=== PATIENT | male | born 1940 | race Caucasian/White ===

== ENCOUNTER 2017-06-17 18:08 | Inpatient (IN) | payer OTHER, MEDICARE, MEDICAID ==
[2017-06-17] MEDS ORDERED: Sodium Chloride 0.9% 10 ML Syringe FLUSH PRN (18:38)
[2017-06-17] MEDS ORDERED: Diltiazem 25 MG/5 ML SDV IVPUSH ONE ×2 (18:39→20:13)
[2017-06-17] MEDS ORDERED: Magnesium Sulfate/Water 2 GM in Premix Bag 1 BAG IV ONE (18:40)
--- NOTE | 2017-06-17 18:44 | EDM.PDOC ---
ED HPI GENERAL MEDICAL PROBLEM - General Chief Complaint: Chest Pain Stated Complaint: CHEST PAIN Time Seen by Provider: 06/17/17 18:26 Source of Information: Reports: Patient History Limitations: Reports: No Limitations - History of Present Illness INITIAL COMMENTS - FREE TEXT/NARRATIVE: Patient is a 77-year-old male with a history of hypertension, hypoglycemia, coronary disease with stent placement, COPD, emphysema, GERD, type 2 diabetes, and chronic O2 use via nasal cannula. Presents to the ED complaining of substernal chest pain, palpitations, worsening shortness of breath. States at approximately 5:15 this evening after taking a albuterol neb treatment experience palpitations past heart rate, and also burning sensation substernal to his chest. Patient took in total 3 nitroglycerin with relief of the discomfort. Last nitroglycerin was at approximately 1745. Pain did radiate into his neck. Again he described it as a burning sensation. Symptoms were similar to first AL. Currently the patient is pain-free with only mild worsening shortness of breath. He has been taking all his home medications as prescribed. There has been no changes noted. Current weight is approximately 251 pounds which is close to his baseline. No increased weight or edema to his lower extremities noted. Home health nurse is present to answer all questions. Current medications include: See list. Anterior Chest Pain Score (Numeric/FACES): 8 - Related Data Allergies Allergy/AdvReac Type Severity Reaction Status Date / Time codeine Allergy Nausea and Verified 06/17/17 23:20 Vomiting fish oil Allergy Nausea and Verified 06/17/17 23:20 Vomiting glipizide [From Glucotrol] Allergy Other Verified 06/17/17 23:20 ibuprofen Allergy Other Verified 06/17/17 23:20 metformin Allergy Other Verified 06/17/17 23:20 pioglitazone [From Actos] Allergy Other Verified 06/17/17 23:20 Home Meds: Home Meds Aspirin [Adult Low Dose Aspirin EC] 81 mg PO DAILY 03/05/14 [History] Clopidogrel [Plavix] 75 mg PO DAILY 03/05/14 [History] Insulin Glarg,Human.Rec.Analog [Lantus] 42 unit SUBCUT BID 03/05/14 [History] Isosorbide Mononitrate [Imdur] 120 mg PO DAILY 03/05/14 [History] Nitroglycerin [Nitrostat] 0.4 mg SL ASDIRECTED PRN 03/05/14 [History] Polyethylene Glycol 1000 [Polyethylene Glycol] 1 scoop PO ASDIRECTED 03/05/14 [ History] Insulin Aspart [Novolog Flexpen] 17 unit SQ BIDMEALS 04/24/14 [History] Acetaminophen [Acetaminophen Extra Strength] 1,000 mg PO BID PRN 10/15/14 [ History] Insulin Aspart [Novolog Flexpen] 26 unit SQ PCDINNER 10/15/14 [History] Metoprolol Tartrate 25 mg PO BID 10/15/14 [History] Ranolazine [Ranexa] 500 mg PO BID 12/28/14 [History] Fluticasone Propionate [Flonase] 2 spray NS DAILY 03/30/16 [History] Pantoprazole [ProTONIX] 40 mg PO DAILY 03/30/16 [History] Albuterol [Ventolin HFA] 1 puff INH QID PRN 06/30/16 [History] Antacids 1 tab PO ASDIRECTED 06/30/16 [History] Budesonide [Pulmicort] 0.25 mg INH BID 06/30/16 [History] Furosemide [Lasix] 40 mg PO DAILY 06/30/16 [History] Levothyroxine Sodium [Synthroid] 50 mcg PO DAILY 06/30/16 [History] Montelukast [Singulair] 10 mg PO BEDTIME 06/30/16 [History] Naphazoline HCl/Pheniramine [Opcon-A Eye Drops] 1 drop EYEBOTH DAILY 06/30/16 [ History] Ondansetron [Zofran ODT] 4 mg PO Q8H PRN 06/30/16 [History] Rosuvastatin [Crestor] 20 mg PO DAILY 06/30/16 [History] Tamsulosin [Flomax] 0.4 mg PO BEDTIME 06/30/16 [History] Arformoterol [Brovana] 15 mcg NEB BIDRT 06/17/17 [History] Captopril 50 mg PO BID 06/17/17 [History] Dextromethorphan/guaiFENesin [Robitussin DM] 10 ml PO Q12H PRN 06/17/17 [History ] Gabapentin [Neurontin] 300 mg PO BEDTIME 06/17/17 [History] Polyvinyl Alcohol/Povidone [Artificial Tears Drops] 15 ml OP QID PRN 06/17/17 [ History] Umeclidinium [place] [Incruse Ellipta*] 62.5 mcg IH DAILY 06/17/17 [History] lamoTRIgine [Lamotrigine] 50 mg PO BEDTIME 06/17/17 [History] Past Medical History HEENT History: Reports: Impaired Vision Other HEENT History: wears glasses Cardiovascular History: Reports: High Cholesterol, Hypertension, [place] Respiratory History: Reports: COPD, SOB, Other (See Below) Other Respiratory History: emphasema Gastrointestinal History: Reports: GERD Genitourinary History: Reports: None Musculoskeletal History: Reports: Back Pain, Chronic, Osteoarthritis Neurological History: Reports: Headaches, Chronic Other Neuro History: Stroke in 1971 Endocrine/Metabolic History: Reports: Diabetes, Type II Hematologic History: Reports: None Oncologic (Cancer) History: Reports: None Dermatologic History: Reports: None - Infectious Disease History Infectious Disease History: Reports: Influenza, Measles - Past Surgical History Head Surgeries/Procedures: Reports: None Cardiovascular Surgical History: Reports: Coronary Artery Stent GI Surgical History: Reports: Colonoscopy Social & Family History - Family History Family Medical History: Noncontributory - Tobacco Use Smoking Status *Q: Never Smoker Years of Tobacco use: 50 Packs/Tins Daily: 2 Used Tobacco, but Quit: Yes Month Tobacco Last Used: 6 years Second Hand Smoke Exposure: No - Caffeine Use Caffeine Use: Reports: Coffee, Soda - Alcohol Use Days Per Week of Alcohol Use: 0 - Recreational Drug Use Recreational Drug Use: No ED ROS GENERAL - Review of Systems Review Of Systems: ROS reveals no pertinent complaints other than HPI. ED EXAM, GENERAL - Physical Exam Exam: See Below Exam Limited By: No Limitations General Appearance: Alert, WD/WN, No Apparent Distress, Other (Receiving oxygen via nasal cannula.) Ears: Hearing Grossly Normal Nose: Normal Inspection Throat/Mouth: Normal Voice, No Airway Compromise Neck: Normal Inspection, Supple Respiratory/Chest: No Respiratory Distress, Lungs Clear, Normal Breath Sounds, No Accessory Muscle Use, Chest Non-Tender (With palpation) Cardiovascular: Normal Peripheral Pulses, Tachycardia, Irregularly Irregular Peripheral Pulses: 1+: Posterior Tibial (L), Posterior Tibial (R), 2+: Radial (L ), Radial (R) GI/Abdominal: Normal Bowel Sounds, Soft, Non-Tender, No Organomegaly, No Distention, Other (Obese) Extremities: Normal Inspection, Normal Range of Motion, Non-Tender, Pedal Edema (Trace to ankles bilaterally) Neurological: Alert, Oriented, CN II-XII Intact, Normal Cognition, No Motor/ Sensory Deficits Psychiatric: Normal Affect, Normal Mood Skin Exam: Warm, Dry, Intact, Normal Color Course - Vital Signs Last Recorded V/S: Last Vital Signs Temp 96.7 F 06/19/17 08:07 Pulse 72 06/19/17 08:15 Resp 16 06/19/17 08:07 BP 158/66 H 06/19/17 08:15 Pulse Ox 97 06/19/17 08:07 - Orders/Labs/Meds Labs: Laboratory Tests 06/17/17 06/17/17 06/17/17 Range/Units 18:30 18:30 18:30 WBC 6.63 (4.23-9.07) K/mm3 RBC 4.23 L (4.63-6.08) M/mm3 Hgb 12.5 L (13.7-17.5) gm/L Hct 37.9 L (40.1-51.0) % MCV 89.6 (79.0-92.2) fl MCH 29.6 (25.7-32.2) pg MCHC 33.0 (32.2-35.5) g/dl RDW Std Deviation 47.3 H (35.1-43.9) fL Plt Count 162 L (163-337) K/mm3 MPV 11.2 (9.4-12.3) fl Neut % (Auto) 75.7 H (34.0-67.9) % Lymph % (Auto) 13.4 L (21.8-53.1) % [place] % (Auto) 8.3 (5.3-12.2) % Eos % (Auto) 1.8 (0.8-7.0) Baso % (Auto) 0.2 (0.1-1.2) % Neut # (Auto) 5.02 (1.78-5.38) K/mm3 Lymph # (Auto) 0.89 L (1.32-3.57) K/mm3 [place] # (Auto) 0.55 (0.30-0.82) K/mm3 Eos # (Auto) 0.12 (0.04-0.54) K/mm3 Baso # (Auto) 0.01 (0.01-0.08) K/mm3 PT 10.3 (8.0-13.0) SECONDS INR 0.95 Sodium 143 (136-145) mEq/L Potassium 3.8 (3.5-5.1) mEq/L Chloride 103 (98-107) mEq/L Carbon Dioxide 32 (21-32) mEq/L Anion Gap 11.8 (5-15) BUN 20 H (7-18) mg/dL Creatinine 1.9 H (0.7-1.3) mg/dL Est Cr Clr Drug Dosing 38.91 mL/min Estimated GFR (MDRD) 35 (>60) mL/min BUN/Creatinine Ratio 10.5 L (14-18) Glucose 196 H (83-115) mg/dL Calcium 9.2 (8.5-10.1) mg/dL Magnesium 1.5 L (1.8-2.4) mg/dl Total Bilirubin 0.6 (0.2-1.0) mg/dL AST 19 (15-37) U/L ALT 29 (16-63) U/L Alkaline Phosphatase 81 (46-116) U/L Troponin I < 0.017 (0.00-0.056) ng/mL C-Reactive Protein < 0.2 (<1.0) mg/dL NT-Pro-B Natriuret Pep 493 H (0-450) pg/mL Total Protein 7.4 (6.4-8.2) g/dl Albumin 3.6 (3.4-5.0) g/dl Globulin 3.8 gm/dL Albumin/Globulin Ratio 1.0 (1-2) TSH 3rd Generation 2.392 (0.358-3.74) uIU/mL Urine Color (Yellow) Urine Appearance (Clear) Urine pH (5.0-8.0) Ur Specific [place] (1.005-1.030) Urine Protein (Negative) Urine Glucose (UA) (Negative) Urine Ketones (Negative) Urine Occult Blood (Negative) Urine Nitrite (Negative) Urine Bilirubin (Negative) Urine Urobilinogen (0.2-1.0) Ur Leukocyte Esterase (Negative) Urine RBC (0-5) /hpf Urine WBC (0-5) /hpf Ur Epithelial Cells (0-5) /hpf Urine Bacteria (FEW) /hpf Urine Mucus (FEW) /hpf 06/17/17 Range/Units 20:11 WBC (4.23-9.07) K/mm3 RBC (4.63-6.08) M/mm3 Hgb (13.7-17.5) gm/L Hct (40.1-51.0) % MCV (79.0-92.2) fl MCH (25.7-32.2) pg MCHC (32.2-35.5) g/dl RDW Std Deviation (35.1-43.9) fL Plt Count (163-337) K/mm3 MPV (9.4-12.3) fl Neut % (Auto) (34.0-67.9) % Lymph % (Auto) (21.8-53.1) % [place] % (Auto) (5.3-12.2) % Eos % (Auto) (0.8-7.0) Baso % (Auto) (0.1-1.2) % Neut # (Auto) (1.78-5.38) K/mm3 Lymph # (Auto) (1.32-3.57) K/mm3 [place] # (Auto) (0.30-0.82) K/mm3 Eos # (Auto) (0.04-0.54) K/mm3 Baso # (Auto) (0.01-0.08) K/mm3 PT (8.0-13.0) SECONDS INR Sodium (136-145) mEq/L Potassium (3.5-5.1) mEq/L Chloride (98-107) mEq/L Carbon Dioxide (21-32) mEq/L Anion Gap (5-15) BUN (7-18) mg/dL Creatinine (0.7-1.3) mg/dL Est Cr Clr Drug Dosing mL/min Estimated GFR (MDRD) (>60) mL/min BUN/Creatinine Ratio (14-18) Glucose (83-115) mg/dL Calcium (8.5-10.1) mg/dL Magnesium (1.8-2.4) mg/dl Total Bilirubin (0.2-1.0) mg/dL AST (15-37) U/L ALT (16-63) U/L Alkaline Phosphatase (46-116) U/L Troponin I (0.00-0.056) ng/mL C-Reactive Protein (<1.0) mg/dL NT-Pro-B Natriuret Pep (0-450) pg/mL Total Protein (6.4-8.2) g/dl Albumin (3.4-5.0) g/dl Globulin gm/dL Albumin/Globulin Ratio (1-2) TSH 3rd Generation (0.358-3.74) uIU/mL Urine Color Yellow (Yellow) Urine Appearance Clear (Clear) Urine pH 7.0 (5.0-8.0) Ur Specific [place] 1.020 (1.005-1.030) Urine Protein 1+ H (Negative) Urine Glucose (UA) Trace H (Negative) Urine Ketones Negative (Negative) Urine Occult Blood Negative (Negative) Urine Nitrite Negative (Negative) Urine Bilirubin Negative (Negative) Urine Urobilinogen 2.0 H (0.2-1.0) Ur Leukocyte Esterase Negative (Negative) Urine RBC Not seen (0-5) /hpf Urine WBC 0-5 (0-5) /hpf Ur Epithelial Cells 0-5 (0-5) /hpf Urine Bacteria Not seen (FEW) /hpf Urine Mucus Not seen (FEW) /hpf Meds: Medications Discontinued Medications Generic Name Dose Route Start Last Admin Trade Name Felipeq PRN Reason Stop Dose Admin Acetaminophen 650 mg 06/18/17 00:22 Tylenol RECTAL Q4H PRN Fever Acetaminophen 650 mg 06/18/17 00:23 06/18/17 19:32 Tylenol PO 650 mg Q4H PRN Administration Fever Albuterol/Ipratropium 3 ml 06/18/17 00:19 Duoneb 3.0-0.5 Mg/3 Ml NEB Q4HRRT PRN Shortness of Breath Amlodipine Besylate 10 mg 06/18/17 09:00 Norvasc PO DAILY [facility] Aspirin 81 mg 06/18/17 09:00 06/19/17 08:15 Halfprin PO 81 mg DAILY [facility] Administration Budesonide 0.25 mg 06/18/17 06:00 06/19/17 06:25 Pulmicort INH 0.25 mg BIDRT GUANAKO Administration Captopril 50 mg 06/17/17 21:00 06/19/17 08:13 Capoten PO 50 mg BID G[facility]KO Administration Clopidogrel Bisulfate 75 mg 06/18/17 09:00 06/19/17 08:17 Plavix PO 75 mg DAILY G[facility]KO Administration Diltiazem HCl 10 mg 06/17/17 18:39 06/17/17 19:04 Diltiazem IVPUSH 06/17/17 18:40 10 mg ONETIME ONE Administration Diltiazem HCl 5 mg 06/17/17 20:13 06/17/17 22:54 Diltiazem IVPUSH 06/17/17 20:14 Not Given ONETIME ONE Furosemide 40 mg 06/18/17 09:00 06/19/17 08:16 Lasix PO 40 mg DAILY G[facility]KO Administration Gabapentin 300 mg 06/17/17 22:30 06/18/17 20:27 Neurontin PO 300 mg BEDTIME G[facility]KO Administration Hydralazine HCl 20 mg 06/18/17 00:17 Apresoline IM Q4H PRN Hypertension Sodium Chloride 1,000 mls @ 50 mls/hr 06/17/17 18:45 06/17/17 22:53 Normal Saline IV 30 mls/hr ASDIRECTED GUANAKO Infusion Magnesium Sulfate 2 gm/ Premix 50 mls @ 25 mls/hr 06/17/17 18:40 06/17/17 19: 10 IV 06/17/17 20:39 25 mls/hr ONETIME ONE Administration Diltiazem HCl 125 mg/ Sodium 125 mls @ 5 mls/hr 06/17/17 20:15 Chloride IV TITRATE GUANAKO Protocol 5 MG/HR Sodium Chloride 1,000 mls @ 30 mls/hr 06/17/17 23:00 Normal Saline IV ASDIRECTED [facility] Metoprolol Tartrate 5 mg/ 55 mls @ 100 mls/hr 06/18/17 00:14 Sodium Chloride IV Q4H PRN Tachycardia Diltiazem HCl 125 mg/ Sodium 125 mls @ 5 mls/hr 06/18/17 00:30 Chloride IV TITRATE GUANAKO Protocol 5 MG/HR Potassium Chloride 10 meq/ 100 mls @ 100 mls/hr 06/18/17 01:06 Premix IV ASDIRECTED PRN Other Insulin Aspart 17 unit 06/18/17 07:00 06/19/17 08:10 Novolog SUBCUT 17 units BID@0700,1100 [facility] Administration Insulin Aspart 26 unit 06/18/17 17:00 06/18/17 17:20 Novolog SUBCUT 26 units WITHDINNER [facility] Administration Insulin Detemir 42 unit 06/18/17 09:00 06/19/17 08:11 Levemir SUBCUT 42 units BID [facility] Administration Isosorbide Mononitrate 120 mg 06/18/17 09:00 06/19/17 08:14 Imdur PO 120 mg DAILY [facility] Administration Lamotrigine 50 mg 06/18/17 21:00 Lamotrigine PO BEDTIME G[facility] Lamotrigine 50 mg 06/17/17 21:00 06/18/17 20:26 Lamotrigine PO 50 mg BEDTIME [facility] Administration Levothyroxine Sodium 25 mcg 06/18/17 09:00 Levothyroxine PO DAILY [facility] Levothyroxine Sodium 50 mcg 06/18/17 06:00 06/19/17 05:34 Synthroid PO 50 mcg ACBRK [facility] Administration Losartan Potassium 100 mg 06/18/17 09:00 Cozaar PO DAILY [facility] Magnesium Sulfate 1 dose 06/18/17 01:09 Pharmacy To Dose - Magnesium Replacement .XX ASDIRECTED PRN Other Metoprolol Tartrate 25 mg 06/17/17 21:00 06/19/17 08:15 Lopressor PO 25 mg Q12HR [facility] Administration Metoprolol Tartrate 25 mg 06/18/17 09:00 Lopressor PO BID [facility] Miscellaneous Information 1 ea 06/18/17 00:29 Remove Patch TRDERM Q72H PRN PATCH REMOVAL Montelukast Sodium 10 mg 06/17/17 21:00 06/18/17 20:27 Singulair PO 10 mg BEDTIME [facility] Administration Montelukast Sodium 10 mg 06/18/17 09:00 Singulair PO DAILY [facility] Morphine Sulfate 1 mg 06/18/17 00:25 Morphine IVPUSH Q3H PRN Dyspnea Nitroglycerin 0.4 mg 06/17/17 23:21 06/18/17 12:13 Nitrostat SL 0.4 mg ASDIRECTED PRN Administration Chest Pain Non-Formulary Medication 2 puff 06/17/17 23:21 Levalbuterol Tartrate [Xopenex Hfa] INH QID PRN Dyspnea Ondansetron HCl 4 mg 06/17/17 23:21 Zofran Odt PO Q8H PRN Nausea Ondansetron HCl 4 mg 06/18/17 00:24 Zofran IVPUSH Q4H PRN Nausea/Vomiting Pantoprazole Sodium 40 mg 06/18/17 07:00 06/19/17 06:02 Protonix PO Not Given DAILY@0700 [facility] Naphazoline Hcl/ 0 each 06/18/17 09:00 06/19/17 08:15 Pheniramine [Opcon-A EYEBOTH 1 each Eye Drops] 1 Drop DAILY [facility] Administration Umeclidinium [place] 0 each 06/18/17 09:00 06/19/17 09:50 62.5 Mcg INH 1 each DAILY [facility] Administration Potassium Chloride 1 dose 06/18/17 01:10 Pharmacy To Dose - Potassium Replacement .XX ASDIRECTED PRN Other Ranolazine 500 mg 06/18/17 09:00 06/19/17 08:15 Ranexa PO 500 mg BID [facility] Administration Rosuvastatin Calcium 20 mg 06/17/17 21:00 06/18/17 20:26 Crestor PO 20 mg BEDTIME [facility] Administration Rosuvastatin Calcium 20 mg 06/18/17 09:00 Crestor PO DAILY [facility] Scopolamine 1.5 mg 06/18/17 00:29 Transderm-Scop TRDERM Q72H PRN Nausea/Vomiting Sodium Chloride 10 ml 06/17/17 18:38 06/17/17 19:20 Saline Flush FLUSH 10 ml ASDIRECTED PRN Administration Keep Vein Open Tamsulosin HCl 0.4 mg 06/18/17 09:00 06/19/17 08:15 Flomax PO 0.4 mg DAILY [facility] Administration Temazepam 7.5 mg 06/18/17 00:27 Restoril PO BEDTIME PRN Insomnia - Re-Assessments/Exams Free Text/Narrative Re-Assessment/Exam: EKG revealed atrial flutter with a 2-1 AV block, left axis deviation, consider left anterior fascicular block, no acute ST changes noted. Poor EKG reading. Reviewed with previous EKG dated June 30, 2016 sinus rhythm at a rate of 81 with a few atrial premature complexes. IV established with normal saline and 50 mL per hour, diltiazem bolus of 10 mg IVP, and mg 2 gram IV. 06/17/17 20:01 Labs reviewed: White blood cell count 6.63, hemoglobin 12.5, platelet count 162, INR 0.95, sodium 143, potassium 3.8, creatinine 1.9 which is close to patient's baseline, glucose 186, magnesium 1.5, troponin less than 0.017, CRP less than 0.2, proBNP is 193, and TSH is 2.392. CXR reviewed with Dr. Stephenson: no obvious acute intrathoracic and abnormalities noted. 1914 reassessment, patient's heart rate dropped in the 110s for 128. Blood pressure dropped from 150 systolic to 115 systolic. Reassessment, patient's heart rate is climbing upward in the 120s. Blood pressure remains 115/88. Will order diltiazem gtt. Do not believe patient will tolerate IVP of diltizem even at low dose 2.5mg and or 5mg. [address] 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 2021. Back to the ER to speak with the patient. Heart rate was 110 blood pressure 140 systolic. During our conversation heart rhythm converted to a sinus rhythm at a rate of 68. Will obtain 12-lead. ProBNP is 493 EKG 2034 sinus rhythm with incomplete right bundle branch block and a heart rate is 67. No acute ST changes noted. [address] Koch. Patient will still be admitted to the ICU. For new onset afib and chest pain rule out. No IV diltiazem started. 2052 Patient moved to the ICU. Departure - Departure Time of Disposition: 20:53 Disposition: Admitted As Inpatient 66 Condition: Good Clinical Impression: New onset a-fib, Chest pain, rule out acute myocardial infarction
[2017-06-17] MEDS ORDERED: Sodium Chloride 0.9% 1,000 ML IV SCH ×2 (18:45→23:00)
[2017-06-17] MEDS ORDERED: Diltiazem 125 MG in Sodium Chloride 0.9% 100 ML IV SCH (20:15)
--- NOTE | 2017-06-17 22:16 | PCM.HP ---
H&P History of Present Illness - General Date of Service: 06/17/17 Source of Information: Patient, Old Records, Provider, RN History Limitations: Reports: No Limitations - History of Present Illness Initial Comments - Free Text/Narative: Steve Price is a 77 yo male who presents to our ED on 06/17/17 with substernal chest pain, palpitations, worsening shortness of breath. Symptoms started approximately 17:15 this evening after albuterol neb treatment. He started to have palpitations or racing heart rate and burning sensation substernal to his chest. He took 3 nitroglycerin with with relief of his discomfort. His last nitroglycerin was at approximately 17:45. The pain is described as a burning sensation and did radiate to his neck. He has had a history of OR in these symptoms were similar. Upon arrival he was pain-free with mild worsening shortness of breath. He was taking all of his home medications and there were no changes. There is no increased weight or edema in his lower extremities and a home health nurse was present to answer all the provider questions. Once in the ED temperature was 97.6 Fahrenheit. Pulse 121. Respirations 22. Blood pressure 150/109. Pulse ox 95% on oxygen. A 12-lead EKG was obtained revealing atrial flutter with 21 AV block, left axis deviation, severe left anterior fascicular block, no acute ST changes. It was of poor EKG reading. A previous EKG from June 30, 2016 was obtained revealing a sinus rhythm at a rate of 81 with a few atrial premature complexes. Labs are obtained: White count normal at 6.63 hemoglobin low at 12.5. Hematocrit low at 37.9. Blood count low at 162,000. He was normocytic. Neutrophils were elevated at 75.7 PT was normal at 10.3. INR normal at 0.95. Sodium normal at 143. Potassium 3.8 chloride 103. Carbon dioxide 32. Anion gap 11.8. BUN was high at 20. Head and was high at 1.9. Estimated GFR was 35. Glucose is high at 196. Calcium normal at 192. Magnesium low at 1.5. Bilirubin was normal at 0.6. Liver enzymes were normal with AST and 19, ALT at 29, alkaline phosphatase of 81. Troponin negative. CRP less than 0.2. BNP was slightly elevated at 493. Albumin was normal at 3.6. TSH was normal at 2.392. UA was negative. IV was established normal saline at 50 mL per hour and a diltiazem bolus of 10 mg IVP was given followed by another 5 mg IV push. Chest x-ray was obtained and reviewed with ER physician showing no obvious acute intrathoracic abnormalities. Diltiazem drip was started with titration protocol. Magnesium sulfate IV was ordered to replenish. He carries a rather complicated history including: HTN, HLD, OR with stent placement, COPD, emphysema, GERD, chronic back pain, osteoporosis, chronic headaches, stroke in 1971, type II DM, and chronic home oxygen use. He was a previous smoker. He was subsequently admitted to our ICU. He is a DNR. His primary care provider is Dr. Ovalle. Anterior Chest Pain Score (Numeric/FACES): 0 (No pain just pressure ) - Related Data Allergies/Adverse Reactions: Allergies Allergy/AdvReac Type Severity Reaction Status Date / Time codeine Allergy Nausea and Verified 06/17/17 23:20 Vomiting fish oil Allergy Nausea and Verified 06/17/17 23:20 Vomiting glipizide [From Glucotrol] Allergy Other Verified 06/17/17 23:20 ibuprofen Allergy Other Verified 06/17/17 23:20 metformin Allergy Other Verified 06/17/17 23:20 pioglitazone [From Actos] Allergy Other Verified 06/17/17 23:20 Home Medications: Home Meds RX: Aspirin [Adult Low Dose Aspirin EC] 81 mg PO DAILY 03/05/14 [History] RX: Clopidogrel [Plavix] 75 mg PO DAILY 03/05/14 [History] RX: Insulin Glarg,Human.Rec.Analog [Lantus] 42 unit SUBCUT BID 03/05/14 [History ] RX: Isosorbide Mononitrate [Imdur] 120 mg PO DAILY 03/05/14 [History] RX: Levalbuterol Tartrate [Xopenex HFA] 2 puff INH QID PRN 03/05/14 [History] RX: Nitroglycerin [Nitrostat] 0.4 mg SL ASDIRECTED PRN 03/05/14 [History] RX: Polyethylene Glycol 1000 [Polyethylene Glycol] 1 scoop PO ASDIRECTED [History] RX: Insulin Aspart [Novolog Flexpen] 17 unit SQ BIDMEALS 04/24/14 [History] RX: amLODIPine [Norvasc] 10 mg PO DAILY 04/24/14 [History] RX: Acetaminophen [Acetaminophen Extra Strength] 650 mg PO BID PRN 10/15/14 [ History] RX: Insulin Aspart [Novolog Flexpen] 26 unit SQ PCDINNER 10/15/14 [History] RX: Metoprolol Tartrate 25 mg PO BID 10/15/14 [History] Ranolazine [Ranexa] 500 mg PO BID 12/28/14 [History] Fluticasone Propionate [Flonase] 2 spray NS DAILY 03/30/16 [History] Pantoprazole [Protonix] 40 mg PO DAILY 03/30/16 [History] Albuterol [Ventolin HFA] 1 puff INH DAILY PRN 06/30/16 [History] Antacids 1 tab PO ASDIRECTED 06/30/16 [History] Budesonide [Pulmicort] 0.25 mg INH BID 06/30/16 [History] Furosemide [Lasix] 40 mg PO DAILY 06/30/16 [History] Naphazoline HCl/Pheniramine [Opcon-A Eye Drops] 1 drop EYEBOTH DAILY 06/30/16 [ History] Ondansetron [Zofran ODT] 4 mg PO Q8H PRN 06/30/16 [History] RX: Levothyroxine Sodium [Synthroid] 25 mcg PO DAILY 06/30/16 [History] RX: Losartan [Cozaar] 100 mg PO DAILY 06/30/16 [History] RX: Montelukast [Singulair] 10 mg PO DAILY 06/30/16 [History] Rosuvastatin [Crestor] 20 mg PO DAILY 06/30/16 [History] Tamsulosin [Flomax] 0.4 mg PO DAILY 06/30/16 [History] Umeclidinium [place] [Incruse Ellipta] 32.5 mcg IH DAILY 06/30/16 [History] Past Medical History HEENT History: Reports: Impaired Vision Other HEENT History: wears glasses Cardiovascular History: Reports: High Cholesterol, Hypertension, OR Respiratory History: Reports: COPD, SOB, Other (See Below) Other Respiratory History: emphasema Gastrointestinal History: Reports: GERD Genitourinary History: Reports: None Musculoskeletal History: Reports: Back Pain, Chronic, Osteoarthritis Neurological History: Reports: Headaches, Chronic Other Neuro History: Stroke in 1972 Endocrine/Metabolic History: Reports: Diabetes, Type II Hematologic History: Reports: None Oncologic (Cancer) History: Reports: None Dermatologic History: Reports: None - Infectious Disease History Infectious Disease History: Reports: Influenza, Measles - Past Surgical History Head Surgeries/Procedures: Reports: None Cardiovascular Surgical History: Reports: Coronary Artery Stent GI Surgical History: Reports: Colonoscopy Social & Family History - Family History Family Medical History: Noncontributory - Tobacco Use Smoking Status *Q: Never Smoker Years of Tobacco use: 50 Packs/Tins Daily: 2 Used Tobacco, but Quit: Yes Month Tobacco Last Used: 6 years Second Hand Smoke Exposure: No - Caffeine Use Caffeine Use: Reports: Coffee, Soda - Alcohol Use Days Per Week of Alcohol Use: 0 - Recreational Drug Use Recreational Drug Use: No H&P Review of Systems - Review of Systems: Review Of Systems: See Below General: Reports: No Symptoms. Denies: Fever, Chills, Malaise, Weakness, Fatigue, Night Sweats HEENT: Reports: Sinus Congestion. Denies: Contact Lenses, Dysphasia, Ear Pain, Eye Pain, Headaches, Hearing Changes, Post Nasal Drip, Sore Throat, Vertigo, Visual Changes Pulmonary: Reports: Cough (today). Denies: Shortness of Breath, Wheezing, Pleuritic Chest Pain, Sputum Cardiovascular: Reports: Edema (chronic ), Other (Chest tightness - "like someone is squeezing around my chest."). Denies: Chest Pain, Palpitations, Lightheadedness, Syncope Gastrointestinal: Reports: No Symptoms. Denies: Abdominal Pain, Constipation, Diarrhea, Decreased Appetite, Distension, Nausea, Vomiting Genitourinary: Reports: No Symptoms. Denies: Dysuria, Frequency, Burning, Pain , Urgency Musculoskeletal: Reports: No Symptoms. Denies: Neck Pain, Shoulder Pain, Arm Pain, Back Pain, Hand Pain, Leg Pain, Foot Pain, Joint Pain, Joint Swelling, Muscle Pain Skin: Reports: No Symptoms. Denies: Cyanosis, Jaundice, Mottled, Pallor Psychiatric: Reports: No Symptoms. Denies: Confusion, Depression, Mood Lability , Anxiety Neurological: Reports: No Symptoms. Denies: Confusion, Dizziness, Headache, Numbness, Paresthesia Hematologic/Lymphatic: Reports: No Symptoms Immunologic: Reports: No Symptoms Exam - Exam Exam: See Below - Vital Signs Vital Signs: Last Vital Signs Temp 97.6 F 06/17/17 18:14 Pulse 121 H 06/17/17 18:14 Resp 22 H 06/17/17 18:14 BP 150/109 H 06/17/17 18:14 Pulse Ox 95 06/17/17 18:14 Weight: 251 lb - Exam Quality Assessment: Supplemental Oxygen (on chronically ), DVT Prophylaxis General: Alert, Oriented, Cooperative, Other (Obese) HEENT: Conjunctiva Clear, EACs Clear, EOMI, Hearing Intact, Mucosa Moist & [place] , Nares Patent, Normal Nasal Septum, Posterior Pharynx Clear, Pupils Equal, Pupils Reactive Neck: Supple, Trachea Midline. No: Carotid Bruit, JVD Lungs: Clear to Auscultation, Normal Respiratory Effort Cardiovascular: Regular Rate, Regular Rhythm, Normal S1, Normal S2 GI/Abdominal Exam: Normal Bowel Sounds, Soft, Non-Tender, No Organomegaly, No Distention, No Abnormal Bruit, No Mass, Pelvis Stable (Male) Exam: Deferred Rectal (Males) Exam: Deferred Back Exam: Normal Inspection, Full Range of Motion Extremities: Normal Inspection, Normal Range of Motion, Non-Tender, Normal Capillary Refill Peripheral Pulses: 2+: Radial (L), Radial (R), Posterior Tibial (L), Posterior Tibial (R), Dorsalis Pedis (L), Dorsalis Pedis (R) Skin: Warm, Dry, Intact Neurological: Cranial Nerves Intact (grossly ) Neuro Extensive - Mental Status: Alert, Oriented x3, Normal Mood/Affect, Normal Cognition, Memory Intact Neuro Extensive - Motor, Sensory, Reflexes: CN II-XII Intact (grossly ), Normal Gait Psychiatric: Alert, Normal Affect, Normal Mood Physical Exam Comments:: Patient examined while lying in ICU bed. - Patient Data Lab Results Last 24 hrs: Laboratory Results - last 24 hr 06/17/17 06/17/17 06/17/17 Range/Units 18:30 18:30 18:30 WBC 6.63 (4.23-9.07) K/mm3 RBC 4.23 L (4.63-6.08) M/mm3 Hgb 12.5 L (13.7-17.5) gm/L Hct 37.9 L (40.1-51.0) % MCV 89.6 (79.0-92.2) fl MCH 29.6 (25.7-32.2) pg MCHC 33.0 (32.2-35.5) g/dl RDW Std Deviation 47.3 H (35.1-43.9) fL Plt Count 162 L (163-337) K/mm3 MPV 11.2 (9.4-12.3) fl Neut % (Auto) 75.7 H (34.0-67.9) % Lymph % (Auto) 13.4 L (21.8-53.1) % [place] % (Auto) 8.3 (5.3-12.2) % Eos % (Auto) 1.8 (0.8-7.0) Baso % (Auto) 0.2 (0.1-1.2) % Neut # (Auto) 5.02 (1.78-5.38) K/mm3 Lymph # (Auto) 0.89 L (1.32-3.57) K/mm3 [place] # (Auto) 0.55 (0.30-0.82) K/mm3 Eos # (Auto) 0.12 (0.04-0.54) K/mm3 Baso # (Auto) 0.01 (0.01-0.08) K/mm3 PT 10.3 (8.0-13.0) SECONDS INR 0.95 Sodium 143 (136-145) mEq/L Potassium 3.8 (3.5-5.1) mEq/L Chloride 103 (98-107) mEq/L Carbon Dioxide 32 (21-32) mEq/L Anion Gap 11.8 (5-15) BUN 20 H (7-18) mg/dL Creatinine 1.9 H (0.7-1.3) mg/dL Est Cr Clr Drug Dosing 38.91 mL/min Estimated GFR (MDRD) 35 (>60) mL/min BUN/Creatinine Ratio 10.5 L (14-18) Glucose 196 H (83-115) mg/dL Calcium 9.2 (8.5-10.1) mg/dL Magnesium 1.5 L (1.8-2.4) mg/dl Total Bilirubin 0.6 (0.2-1.0) mg/dL AST 19 (15-37) U/L ALT 29 (16-63) U/L Alkaline Phosphatase 81 (46-116) U/L Troponin I < 0.017 (0.00-0.056) ng/mL C-Reactive Protein < 0.2 (<1.0) mg/dL NT-Pro-B Natriuret Pep 493 H (0-450) pg/mL Total Protein 7.4 (6.4-8.2) g/dl Albumin 3.6 (3.4-5.0) g/dl Globulin 3.8 gm/dL Albumin/Globulin Ratio 1.0 (1-2) TSH 3rd Generation 2.392 (0.358-3.74) uIU/mL Urine Color (Yellow) Urine Appearance (Clear) Urine pH (5.0-8.0) Ur Specific [place] (1.005-1.030) Urine Protein (Negative) Urine Glucose (UA) (Negative) Urine Ketones (Negative) Urine Occult Blood (Negative) Urine Nitrite (Negative) Urine Bilirubin (Negative) Urine Urobilinogen (0.2-1.0) Ur Leukocyte Esterase (Negative) Urine RBC (0-5) /hpf Urine WBC (0-5) /hpf Ur Epithelial Cells (0-5) /hpf Urine Bacteria (FEW) /hpf Urine Mucus (FEW) /hpf 06/17/ Range/Units 20:11 WBC (4.23-9.07) K/mm3 RBC (4.63-6.08) M/mm3 Hgb (13.7-17.5) gm/L Hct (40.1-51.0) % MCV (79.0-92.2) fl MCH (25.7-32.2) pg MCHC (32.2-35.5) g/dl RDW Std Deviation (35.1-43.9) fL Plt Count (163-337) K/mm3 MPV (9.4-12.3) fl Neut % (Auto) (34.0-67.9) % Lymph % (Auto) (21.8-53.1) % [place] % (Auto) (5.3-12.2) % Eos % (Auto) (0.8-7.0) Baso % (Auto) (0.1-1.2) % Neut # (Auto) (1.78-5.38) K/mm3 Lymph # (Auto) (1.32-3.57) K/mm3 [place] # (Auto) (0.30-0.82) K/mm3 Eos # (Auto) (0.04-0.54) K/mm3 Baso # (Auto) (0.01-0.08) K/mm3 PT (8.0-13.0) SECONDS INR Sodium (136-145) mEq/L Potassium (3.5-5.1) mEq/L Chloride (98-107) mEq/L Carbon Dioxide (21-32) mEq/L Anion Gap (5-15) BUN (7-18) mg/dL Creatinine (0.7-1.3) mg/dL Est Cr Clr Drug Dosing mL/min Estimated GFR (MDRD) (>60) mL/min BUN/Creatinine Ratio (14-18) Glucose (83-115) mg/dL Calcium (8.5-10.1) mg/dL Magnesium (1.8-2.4) mg/dl Total Bilirubin (0.2-1.0) mg/dL AST (15-37) U/L ALT (16-63) U/L Alkaline Phosphatase (46-116) U/L Troponin I (0.00-0.056) ng/mL C-Reactive Protein (<1.0) mg/dL NT-Pro-B Natriuret Pep (0-450) pg/mL Total Protein (6.4-8.2) g/dl Albumin (3.4-5.0) g/dl Globulin gm/dL Albumin/Globulin Ratio (1-2) TSH 3rd Generation (0.358-3.74) uIU/mL Urine Color Yellow (Yellow) Urine Appearance Clear (Clear) Urine pH 7.0 (5.0-8.0) Ur Specific [place] 1.020 (1.005-1.030) Urine Protein 1+ H (Negative) Urine Glucose (UA) Trace H (Negative) Urine Ketones Negative (Negative) Urine Occult Blood Negative (Negative) Urine Nitrite Negative (Negative) Urine Bilirubin Negative (Negative) Urine Urobilinogen 2.0 H (0.2-1.0) Ur Leukocyte Esterase Negative (Negative) Urine RBC Not seen (0-5) /hpf Urine WBC 0-5 (0-5) /hpf Ur Epithelial Cells 0-5 (0-5) /hpf Urine Bacteria Not seen (FEW) /hpf Urine Mucus Not seen (FEW) /hpf Result Diagrams: 06/17/17 18:30 06/17/17 18:30 *Q Meaningful Use (ADM) - VTE *Q VTE Criteria *Q: - Stroke *Q Stroke Criteria *Q: - AMI *Q AMI Criteria *Q: - Problem List (1) New onset atrial flutter SNOMED Code(s): 8705605 ICD Code: I48.92 - UNSPECIFIED ATRIAL FLUTTER Status: Acute Priority: High Current Visit: Yes (2) Diabetes mellitus type 2 in obese SNOMED Code(s): 04984943 ICD Code: E11.9 - TYPE 2 DIABETES MELLITUS WITHOUT COMPLICATIONS; E66.9 - OBESITY, UNSPECIFIED Status: Chronic Priority: Medium Current Visit: Yes (3) Hyperlipidemia SNOMED Code(s): 91837947 ICD Code: E78.5 - HYPERLIPIDEMIA, UNSPECIFIED Status: Chronic Priority: Medium Current Visit: No (4) Emphysema of lung SNOMED Code(s): 17727661 ICD Code: J43.9 - EMPHYSEMA, UNSPECIFIED Status: Chronic Priority: Medium Current Visit: No Qualifiers: Emphysema type: other Qualified Code(s): J43.8 - Other emphysema (5) Chest pressure SNOMED Code(s): 52074091 ICD Code: R07.89 - OTHER CHEST PAIN Status: Acute Priority: High Current Visit: Yes (6) CKD (chronic kidney disease) stage 3, GFR 30-59 ml/min SNOMED Code(s): 084173133 ICD Code: N18.3 - CHRONIC KIDNEY DISEASE, STAGE 3 (MODERATE) Status: Chronic Priority: Medium Current Visit: Yes (7) COPD (chronic obstructive pulmonary disease) with chronic bronchitis SNOMED Code(s): 559925459 ICD Code: J44.9 - CHRONIC OBSTRUCTIVE PULMONARY DISEASE, UNSPECIFIED Status : Chronic Priority: Medium Current Visit: Yes (8) Hypomagnesemia SNOMED Code(s): 854326845 ICD Code: E83.42 - HYPOMAGNESEMIA Status: Acute Priority: High Current Visit: Yes Problem List Initiated/Reviewed/Updated: Yes Orders Last 24hrs: Active Orders 24 hr Category Date Time Status EKG Documentation Completion [RC] STAT Care 06/17/17 20:11 Inactive Peripheral IV Care [RC] . DIRECTED Care 06/17/17 18:38 Active Chest 1V Frontal [CR] Stat Exams 06/17/17 18:38 Taken CKMB [CHEM] Routine Lab 06/17/17 22:00 Received TROPONIN I [CHEM] Routine Lab 06/17/17 22:00 Received Diltiazem 125 mg Med 06/17/17 20:15 Active Sodium Chloride 0.9% [Normal Saline] 100 ml IV TITRATE Sodium Chloride 0.9% [Normal Saline] 1,000 ml Med 06/17/17 18:45 Active IV ASDIRECTED Sodium Chloride 0.9% [Saline Flush] Med 06/17/17 18:38 Active 10 ml FLUSH ASDIRECTED PRN Peripheral IV Insertion Adult [OM.PC] Stat Oth 06/17/17 18:38 Ordered Medication Orders Sodium Chloride (Normal Saline) 1,000 mls @ 50 mls/hr IV ASDIRECTED GUANAKO Last Admin: 06/17/17 19:03 Dose: 50 mls/hr Diltiazem HCl 125 mg/ Sodium (Chloride) 125 mls @ 5 mls/hr IV TITRATE GUANAKO; 5 MG /HR PRN Reason: Protocol Sodium Chloride (Saline Flush) 10 ml FLUSH ASDIRECTED PRN PRN Reason: Keep Vein Open Last Admin: 06/17/17 19:20 Dose: 10 ml Assessment/Plan Comment:: I/P Acute: New onset atrial flutter -Hr 121 in ED; 66 when he arrives at ICU -12 lead in ED reveals: 2:1 AV block, left axis deviation, consider left anterior fasicular block -Repeat 12-lead EKG in AM at 0700 -Normal WBC Count in ED 6.63 -Pt 10.3 -INR 0.95 -Electrolytes normal with the exception of magnesium -Troponin in ED negative -Will order repeat troponin tonight at 2200 and tomorrow at 0500. -CK-MB in ED 4.0 -BNP 493 -TSH 2.392; full thyroid panel in AM -No obvious acute intrathoracic abnormalities on CXR in ED,pending radiologist read. -Responds to diltiazem given in ED and converts prior to coming to ICU - monitor for change -Continuous EKG monitoring -Pulse oximetry as ordered -Morphine sulfate 1mg IVP q3hr for dyspnea/chest pain -Start Cardizem drip for a-fib/a-flutter, titrate to maintain HR at <100 -2D echo in AM -Lipid panel ordered -Will need f/u with cardiology Chest pain/pressure - R/O ACS -See above orders Hypomagnesemia -Magnesium 1.5 in ED -Replenished with 2 grams via IV in ED -Pharmacy to monitor and replete Stage III kidney disease -Unsure if this is acute or chronic -Bun 20 -Creatinine 1.9 -eGFR 35 -Fluids as ordered -Avoid nephrotoxic drugs if possible -Monitor BP Chronic: Type II DM -Glucose checks QID AC&HS -Home insulin dosing -ADA diet HTN HLD hypoglycemia CAD with stent placement COPD emphysema GERD Chronic O2 use - Titrate as needed Plan: Admit ICU CM/SW for discharge planning GI prophylaxis - Pt. is on home protonix, continue DVT prophylaxis - SCDs Home medications as indicated Routine AM lab draws Other orders as indicated above He is DNR, His PCP is Dr. Ovalle [facility]
[2017-06-17] MEDS: Gabapentin 300 MG Cap PO SCH (22:53)
[2017-06-17] MEDS: Metoprolol Tartrate 25 MG Tab PO SCH (22:55)
[2017-06-17] MEDS: Rosuvastatin 10 MG Tab PO SCH (22:55)
[2017-06-17] MEDS: Montelukast 10 MG Tab PO SCH (22:57)
[2017-06-17] MEDS ORDERED: Nitroglycerin 0.4 MG Tab.SL SL PRN (23:21)
[2017-06-17] MEDS ORDERED: Ondansetron 4 MG Tab.DIS PO PRN (23:21)
[2017-06-17] MEDS ORDERED: Non-Formulary Medication 1 Each (Levalbuterol Tartrate [Xopenex Hfa] 2 PUFF) INH PRN (23:21)
[2017-06-18] MEDS ORDERED: Metoprolol Tartrate 5 MG in Sodium Chloride 0.9% 50 ML IV PRN (00:14)
[2017-06-18] MEDS ORDERED: hydrALAZINE 20 MG/ML SDV IM PRN (00:17)
[2017-06-18] MEDS ORDERED: Albuterol/Ipratropium 3.0-0.5 MG/3 ML Neb Soln NEB PRN (00:19)
[2017-06-18] MEDS ORDERED: Acetaminophen 650 MG Supp RECTAL PRN (00:22)
[2017-06-18] MEDS ORDERED: Acetaminophen 325 MG Tab PO PRN (00:23)
[2017-06-18] MEDS ORDERED: Ondansetron 4 MG/2 ML SDV IVPUSH PRN (00:24)
[2017-06-18] MEDS ORDERED: Morphine 2 MG/ML Syringe IVPUSH PRN (00:25)
[2017-06-18] MEDS ORDERED: Temazepam 7.5 MG Cap PO PRN (00:27)
[2017-06-18] MEDS ORDERED: Scopolamine 1.5 MG Transdermal Patch TRDERM PRN (00:29)
[2017-06-18] MEDS ORDERED: Diltiazem 125 MG in Sodium Chloride 0.9% 100 ML IV SCH (00:30)
[2017-06-18] MEDS ORDERED: Potassium Chloride 10 MEQ in Premix Bag 1 BAG IV PRN (01:06)
[2017-06-18] MEDS: Budesonide 0.25 MG/2 ML Neb Susp INH SCH ×2 (06:29→20:40)
[2017-06-18] MEDS: Levothyroxine 50 MCG Tab PO SCH (06:30)
[2017-06-18] MEDS: Pantoprazole 40 MG Tab.CR PO SCH (06:33)
--- NOTE | 2017-06-18 07:08 | CR ---
Chest: Portable view of the chest was obtained. Comparison: Previous chest x-ray of 03/30/16. Heart is slightly more prominent than on prior study. Mild tortuosity of the thoracic aorta is seen. Slight atelectasis or scarring is seen within the right lung base. Lungs otherwise are clear. Bony structures are grossly intact. Impression: 1. Heart size within normal limits for portable technique but slightly more prominent than on prior study. 2. Minimal change within right lung base which is felt to be incidental. 3. Nothing acute is seen on portable chest x-ray. Diagnostic code #2
[2017-06-18] MEDS: Insulin Detemir 100 Units/ML 3 ML Pen SUBCUT SCH ×3 (07:32→20:24)
[2017-06-18] MEDS: Insulin Aspart 100 Units/ML 3 ML Pen SUBCUT SCH ×4 (07:34→17:20)
[2017-06-18] MEDS: Furosemide 40 MG Tab PO SCH (08:11)
[2017-06-18] MEDS: Clopidogrel 75 MG Tab PO SCH (08:11)
[2017-06-18] MEDS: Aspirin 81 MG Tab.EC PO SCH (08:12)
[2017-06-18] MEDS: Tamsulosin 0.4 MG Cap.ER PO SCH (08:12)
[2017-06-18] MEDS: Metoprolol Tartrate 25 MG Tab PO SCH ×2 (08:12→20:26)
[2017-06-18] MEDS: Isosorbide Mononitrate 60 MG Tab.ER PO SCH (08:12)
[2017-06-18] MEDS: PHENIRAMINE EYEBOTH SCH (08:15)
[2017-06-18] MEDS: NAPHAZOLINE HCL EYEBOTH SCH (08:15)
[2017-06-18] MEDS: UMECLIDINIUM BROMIDE 62.5 MCG INH SCH (08:15)
[2017-06-18] MEDS ORDERED: Levothyroxine 25 MCG Tab PO SCH (09:00)
[2017-06-18] MEDS ORDERED: Losartan 100 MG Tab PO SCH (09:00)
[2017-06-18] MEDS ORDERED: Rosuvastatin 10 MG Tab PO SCH (09:00)
[2017-06-18] MEDS ORDERED: INSULIN GLARG HUMAN REC ANALOG SUBCUT SCH (09:00)
[2017-06-18] MEDS ORDERED: Montelukast 10 MG Tab PO SCH (09:00)
[2017-06-18] MEDS ORDERED: amLODIPine 10 MG Tab PO SCH (09:00)
[2017-06-18] MEDS ORDERED: Metoprolol Tartrate 50 MG Tab PO SCH (09:00)
--- NOTE | 2017-06-18 15:10 | PCM.PN ---
- General Info Date of Service: 06/18/17 Admission Dx/Problem (Free Text): New Onset Atrial Flutter Subjective Update: Follow Up Functional Status: Reports: Pain Controlled, Tolerating Diet, Ambulating, Urinating. Denies: New Symptoms - Review of Systems General: Denies: Fever, Weakness, Fatigue, Malaise, Chills HEENT: Reports: No Symptoms Pulmonary: Reports: Shortness of Breath (baseline). Denies: Cough Cardiovascular: Reports: Chest Pain (baseline chronic angina). Denies: Dyspnea on Exertion, Lightheadedness Gastrointestinal: Denies: Abdominal Pain, Nausea, Vomiting Genitourinary: Reports: No Symptoms Musculoskeletal: Reports: No Symptoms Skin: Denies: Cyanosis, Pallor, Diaphoresis Neurological: Denies: Confusion, Difficulty Walking, Weakness, Gait Disturbance Psychiatric: Denies: Depression, Anxiety, Agitation, Hallucinations Systems Review Comment:: No significant overnight or acute issues. He converted last night to sinus rhythm with PACs. His thyroid panel is normal. He feels pretty good. He has no new complaints. - Patient Data Vitals - Most Recent: Last Vital Signs Temp 36.2 C 06/18/17 12:08 Pulse 65 06/18/17 12:08 Resp 18 06/18/17 12:08 BP 118/69 06/18/17 12:13 Pulse Ox 98 06/18/17 12:08 Weight - Most Recent: 113.625 kg I&O - Last 24 Hours: Intake & Output 06/18/17 06/18/17 06/18/17 06:59 14:59 22:59 Intake Total 339 600 Output Total 900 180 Balance -561 420 Lab Results Last 24 Hours: Laboratory Results - last 24 hr 06/17/17 06/17/17 06/17/17 Range/Units 21:47 22:00 22:14 WBC (4.23-9.07) K/mm3 RBC (4.63-6.08) M/mm3 Hgb (13.7-17.5) gm/L Hct (40.1-51.0) % MCV (79.0-92.2) fl MCH (25.7-32.2) pg MCHC (32.2-35.5) g/dl RDW Std Deviation (35.1-43.9) fL Plt Count (163-337) K/mm3 MPV (9.4-12.3) fl Neut % (Auto) (34.0-67.9) % Lymph % (Auto) (21.8-53.1) % [place] % (Auto) (5.3-12.2) % Eos % (Auto) (0.8-7.0) Baso % (Auto) (0.1-1.2) % Neut # (Auto) (1.78-5.38) K/mm3 Lymph # (Auto) (1.32-3.57) K/mm3 [place] # (Auto) (0.30-0.82) K/mm3 Eos # (Auto) (0.04-0.54) K/mm3 Baso # (Auto) (0.01-0.08) K/mm3 Sodium (136-145) mEq/L Potassium (3.5-5.1) mEq/L Chloride (98-107) mEq/L Carbon Dioxide (21-32) mEq/L Anion Gap (5-15) BUN (7-18) mg/dL Creatinine (0.7-1.3) mg/dL Est Cr Clr Drug Dosing mL/min Estimated GFR (MDRD) (>60) mL/min BUN/Creatinine Ratio (14-18) Glucose (83-115) mg/dL POC Glucose 138 H (83-110) mg/dL Calcium (8.5-10.1) mg/dL Magnesium (1.8-2.4) mg/dl CK-MB (CK-2) 4.0 H (0-3.6) ng/ml Troponin I 0.029 (0.00-0.056) ng/mL Triglycerides 487 H (<150) mg/dL Cholesterol 117 (<200) mg/dL LDL Cholesterol Direct 39 (<100) mg/dL HDL Cholesterol 28.0 L (40-59) mg/dL Free T4 (0.76-1.46) ng/dL TSH 3rd Generation (0.358-3.74) uIU/mL 06/18/17 06/18/17 06/18/17 Range/Units 01:52 05:30 05:30 WBC 6.31 (4.23-9.07) K/mm3 RBC 3.89 L (4.63-6.08) M/mm3 Hgb 11.2 L (13.7-17.5) gm/L Hct 35.5 L (40.1-51.0) % MCV 91.3 (79.0-92.2) fl MCH 28.8 (25.7-32.2) pg MCHC 31.5 L (32.2-35.5) g/dl RDW Std Deviation 47.9 H (35.1-43.9) fL Plt Count 138 L (163-337) K/mm3 MPV 10.8 (9.4-12.3) fl Neut % (Auto) 75.6 H (34.0-67.9) % Lymph % (Auto) 15.1 L (21.8-53.1) % [place] % (Auto) 6.7 (5.3-12.2) % Eos % (Auto) 1.9 (0.8-7.0) Baso % (Auto) 0.2 (0.1-1.2) % Neut # (Auto) 4.78 (1.78-5.38) K/mm3 Lymph # (Auto) 0.95 L (1.32-3.57) K/mm3 [place] # (Auto) 0.42 (0.30-0.82) K/mm3 Eos # (Auto) 0.12 (0.04-0.54) K/mm3 Baso # (Auto) 0.01 (0.01-0.08) K/mm3 Sodium 143 (136-145) mEq/L Potassium 4.1 (3.5-5.1) mEq/L Chloride 104 (98-107) mEq/L Carbon Dioxide 34 H (21-32) mEq/L Anion Gap 9.1 (5-15) BUN 20 H (7-18) mg/dL Creatinine 1.7 H (0.7-1.3) mg/dL Est Cr Clr Drug Dosing 43.49 mL/min Estimated GFR (MDRD) 39 (>60) mL/min BUN/Creatinine Ratio 11.8 L (14-18) Glucose 190 H (83-115) mg/dL POC Glucose 178 H (83-110) mg/dL Calcium 8.8 (8.5-10.1) mg/dL Magnesium 2.2 (1.8-2.4) mg/dl CK-MB (CK-2) (0-3.6) ng/ml Troponin I 0.062 H* (0.00-0.056) ng/mL Triglycerides (<150) mg/dL Cholesterol (<200) mg/dL LDL Cholesterol Direct (<100) mg/dL HDL Cholesterol (40-59) mg/dL Free T4 0.90 (0.76-1.46) ng/dL TSH 3rd Generation 2.055 (0.358-3.74) uIU/mL 06/18/17 06/18/17 06/18/17 Range/Units 06:44 10:52 12:00 WBC (4.23-9.07) K/mm3 RBC (4.63-6.08) M/mm3 Hgb (13.7-17.5) gm/L Hct (40.1-51.0) % MCV (79.0-92.2) fl MCH (25.7-32.2) pg MCHC (32.2-35.5) g/dl RDW Std Deviation (35.1-43.9) fL Plt Count (163-337) K/mm3 MPV (9.4-12.3) fl Neut % (Auto) (34.0-67.9) % Lymph % (Auto) (21.8-53.1) % [place] % (Auto) (5.3-12.2) % Eos % (Auto) (0.8-7.0) Baso % (Auto) (0.1-1.2) % Neut # (Auto) (1.78-5.38) K/mm3 Lymph # (Auto) (1.32-3.57) K/mm3 [place] # (Auto) (0.30-0.82) K/mm3 Eos # (Auto) (0.04-0.54) K/mm3 Baso # (Auto) (0.01-0.08) K/mm3 Sodium (136-145) mEq/L Potassium (3.5-5.1) mEq/L Chloride (98-107) mEq/L Carbon Dioxide (21-32) mEq/L Anion Gap (5-15) BUN (7-18) mg/dL Creatinine (0.7-1.3) mg/dL Est Cr Clr Drug Dosing mL/min Estimated GFR (MDRD) (>60) mL/min BUN/Creatinine Ratio (14-18) Glucose (83-115) mg/dL POC Glucose 200 H 183 H (83-110) mg/dL Calcium (8.5-10.1) mg/dL Magnesium (1.8-2.4) mg/dl CK-MB (CK-2) 3.8 H (0-3.6) ng/ml Troponin I 0.031 (0.00-0.056) ng/mL Triglycerides (<150) mg/dL Cholesterol (<200) mg/dL LDL Cholesterol Direct (<100) mg/dL HDL Cholesterol (40-59) mg/dL Free T4 (0.76-1.46) ng/dL TSH 3rd Generation (0.358-3.74) uIU/mL Med Orders - Current: Current Medications Acetaminophen (Tylenol) 650 mg RECTAL Q4H PRN PRN Reason: Fever Acetaminophen (Tylenol) 650 mg PO Q4H PRN PRN Reason: Fever Albuterol/Ipratropium (Duoneb 3.0-0.5 Mg/3 Ml) 3 ml NEB Q4HRRT PRN PRN Reason: Shortness of Breath Aspirin (Halfprin) 81 mg PO DAILY [facility] Last Admin: 06/18/17 08:12 Dose: 81 mg Budesonide (Pulmicort) 0.25 mg INH BIDRT [facility] Last Admin: 06/18/17 06:29 Dose: 0.25 mg Captopril (Capoten) 50 mg PO BID [facility] Last Admin: 06/18/17 08:11 Dose: 50 mg Clopidogrel Bisulfate (Plavix) 75 mg PO DAILY [facility] Last Admin: 06/18/17 08:11 Dose: 75 mg Furosemide (Lasix) 40 mg PO DAILY [facility] Last Admin: 06/18/17 08:11 Dose: 40 mg Gabapentin (Neurontin) 300 mg PO BEDTIME [facility] Last Admin: 06/17/17 22:53 Dose: 300 mg Hydralazine HCl (Apresoline) 20 mg IM Q4H PRN PRN Reason: Hypertension Sodium Chloride (Normal Saline) 1,000 mls @ 50 mls/hr IV ASDIRECTED [facility] Last Infusion: 06/17/17 22:53 Dose: 30 mls/hr Metoprolol Tartrate 5 mg/ (Sodium Chloride) 55 mls @ 100 mls/hr IV Q4H PRN PRN Reason: Tachycardia Diltiazem HCl 125 mg/ Sodium (Chloride) 125 mls @ 5 mls/hr IV TITRATE [facility]; 5 MG /HR PRN Reason: Protocol Insulin Aspart (Novolog) 17 unit SUBCUT BID@0700,1100 [facility] Last Admin: 06/18/17 10:56 Dose: 17 units Insulin Aspart (Novolog) 26 unit SUBCUT WITHDINNER [facility] Insulin Detemir (Levemir) 42 unit SUBCUT BID [facility] Last Admin: 06/18/17 10:29 Dose: Not Given Isosorbide Mononitrate (Imdur) 120 mg PO DAILY [facility] Last Admin: 06/18/17 08:12 Dose: 120 mg Lamotrigine (Lamotrigine) 50 mg PO BEDTIME [facility] Last Admin: 06/17/17 22:53 Dose: 50 mg Levothyroxine Sodium (Synthroid) 50 mcg PO ACBRK [facility] Last Admin: 06/18/17 06:30 Dose: 50 mcg Magnesium Sulfate (Pharmacy To Dose - Magnesium Replacement) 1 dose .XX ASDIRECTED PRN PRN Reason: Other Metoprolol Tartrate (Lopressor) 25 mg PO Q12HR [facility] Last Admin: 06/18/17 08:12 Dose: 25 mg Miscellaneous Information (Remove Patch) 1 ea TRDERM Q72H PRN PRN Reason: PATCH REMOVAL Montelukast Sodium (Singulair) 10 mg PO BEDTIME [facility] Last Admin: 06/17/17 22:57 Dose: 10 mg Morphine Sulfate (Morphine) 1 mg IVPUSH Q3H PRN PRN Reason: Dyspnea Nitroglycerin (Nitrostat) 0.4 mg SL ASDIRECTED PRN PRN Reason: Chest Pain Last Admin: 06/18/17 12:13 Dose: 0.4 mg Ondansetron HCl (Zofran Odt) 4 mg PO Q8H PRN PRN Reason: Nausea Ondansetron HCl (Zofran) 4 mg IVPUSH Q4H PRN PRN Reason: Nausea/Vomiting Pantoprazole Sodium (Protonix) 40 mg PO DAILY@0700 [facility] Last Admin: 06/18/17 06:33 Dose: 40 mg Naphazoline Hcl/Pheniramine [Opcon-A Eye Drops] 1 Drop 0 each EYEBOTH DAILY [facility] Last Admin: 06/18/17 08:15 Dose: Not Given Umeclidinium [place] (62.5 Mcg) 0 each INH DAILY [facility] Last Admin: 06/18/17 08:15 Dose: Not Given Potassium Chloride (Pharmacy To Dose - Potassium Replacement) 1 dose .XX ASDIRECTED PRN PRN Reason: Other Ranolazine (Ranexa) 500 mg PO BID [facility] Last Admin: 06/18/17 08:12 Dose: 500 mg Rosuvastatin Calcium (Crestor) 20 mg PO BEDTIME [facility] Last Admin: 06/17/17 22:55 Dose: 20 mg Scopolamine (Transderm-Scop) 1.5 mg TRDERM Q72H PRN PRN Reason: Nausea/Vomiting Sodium Chloride (Saline Flush) 10 ml FLUSH ASDIRECTED PRN PRN Reason: Keep Vein Open Last Admin: 06/17/17 19:20 Dose: 10 ml Tamsulosin HCl (Flomax) 0.4 mg PO DAILY [facility] Last Admin: 06/18/17 08:12 Dose: 0.4 mg Temazepam (Restoril) 7.5 mg PO BEDTIME PRN PRN Reason: Insomnia Discontinued Medications Amlodipine Besylate (Norvasc) 10 mg PO DAILY [facility] Diltiazem HCl (Diltiazem) 10 mg IVPUSH ONETIME ONE Stop: 06/17/17 18:40 Last Admin: 06/17/17 19:04 Dose: 10 mg Diltiazem HCl (Diltiazem) 5 mg IVPUSH ONETIME ONE Stop: 06/17/17 20:14 Last Admin: 06/17/17 22:54 Dose: Not Given Magnesium Sulfate 2 gm/ Premix 50 mls @ 25 mls/hr IV ONETIME ONE Stop: 06/17/17 20:39 Last Admin: 06/17/17 19:10 Dose: 25 mls/hr Diltiazem HCl 125 mg/ Sodium (Chloride) 125 mls @ 5 mls/hr IV TITRATE [facility]; 5 MG /HR PRN Reason: Protocol Sodium Chloride (Normal Saline) 1,000 mls @ 30 mls/hr IV ASDIRECTED [facility] Potassium Chloride 10 meq/ (Premix) 100 mls @ 100 mls/hr IV ASDIRECTED PRN PRN Reason: Other Lamotrigine (Lamotrigine) 50 mg PO BEDTIME [facility] Levothyroxine Sodium (Levothyroxine) 25 mcg PO DAILY [facility] Losartan Potassium (Cozaar) 100 mg PO DAILY [facility] Metoprolol Tartrate (Lopressor) 25 mg PO BID [facility] Montelukast Sodium (Singulair) 10 mg PO DAILY [facility] Non-Formulary Medication (Levalbuterol Tartrate [Xopenex Hfa]) 2 puff INH QID PRN PRN Reason: Dyspnea Rosuvastatin Calcium (Crestor) 20 mg PO DAILY [facility] - Exam Quality Assessment: Supplemental Oxygen General: Alert, Oriented, Cooperative, No Acute Distress HEENT: Pupils Equal, Pupils Reactive, EOMI, Mucous Membr. Moist/[place] Neck: Supple, Trachea Midline, No JVD Lungs: Clear to Auscultation, Normal Respiratory Effort Cardiovascular: Regular Rate, Regular Rhythm GI/Abdominal Exam: Normal Bowel Sounds, Soft, Non-Tender, No Organomegaly, No Distention, No Abnormal Bruit, No Mass, Pelvis Stable, Other (Obese) (Male) Exam: Deferred Back Exam: Normal Inspection, Decreased Range of Motion Extremities: Normal Inspection, Normal Range of Motion, Non-Tender, No Pedal Edema, Normal Capillary Refill Peripheral Pulses: 2+: Dorsalis Pedis (L), Dorsalis Pedis (R) Skin: Warm, Dry, Intact Neurological: No New Focal Deficit Psy/Mental Status: Alert, Normal Affect, Normal Mood - Problem List Review Problem List Initiated/Reviewed/Updated: Yes - My Orders Last 24 Hours: My Active Orders 06/17/17 21:00 Accu Check [Blood Glucose Check, Bedside] [RC] QIDACANDBED Captopril [Capoten] 50 mg PO BID Metoprolol Tartrate [Lopressor] 25 mg PO Q12HR Montelukast [Singulair] 10 mg PO BEDTIME Rosuvastatin [Crestor] 20 mg PO BEDTIME lamoTRIgine 50 mg PO BEDTIME 06/17/17 22:27 Oxygen Therapy [RC] ASDIRECTED 06/17/17 22:30 Gabapentin [Neurontin] 300 mg PO BEDTIME 06/17/17 22:57 Antiembolic Devices [RC] BID SCD [Sequential Compression Device] [OM.PC] Routine 06/17/17 23:18 Code Status [Resuscitation Status] Routine 06/18/17 00:29 Remove Patch 1 ea TRDERM Q72H PRN 06/18/17 07:00 EKG 12 Lead [EK] Routine 06/18/17 Breakfast [employer] [employer] Diet [DIET] Heart Healthy Diet [DIET] - Plan Plan:: Assessment/Plan: Acute: S/p New onset atrial flutter - Hr 121 in ED; 66 when he arrives at ICU - 12 lead in ED reveals: 2:1 AV block, left axis deviation, consider left anterior fasicular block - Repeat 12-lead EKG this AM shows sinus rhythm with PACs - Thyroid panel is normal - No obvious acute intrathoracic abnormalities on CXR in ED - Responds to diltiazem given in ED and converts prior to coming to ICU - Continue Metoprolol Tartrate 25 mg po BID - Will need f/u with cardiology after discharge Acute on Chronic Angina - No worse than usual - Has hx/o CAD x 1 stent - Continue ASA/Plavix, BB, Imdur and Ranexa - Follow up with his cardiology in [facility] after d/c Resolved: Hypomagnesemia - Magnesium 1.5--> 2.2 - Replenished with 2 grams via IV in ED - Pharmacy to monitor and replete Chronic: Type II DM - Glucose checks QID AC&HS - Home insulin dosing - ADA diet HTN HLD Hypoglycemia CAD with stent placement COPD/Emphysema GERD CKD Stage 3 Chronic O2 use- Titrate as needed Plan: He is clinically stable and back at baseline Transfer to Med-Surg w/ Tele Completed 2D echo this am GI prophylaxis: PPI DVT prophylaxis: SCDs Routine AM lab draws Other orders as indicated above CM/SW for discharge planning He is DNR, His PCP is Dr. Ovalle through the [facility] Possible d/c in AM
[2017-06-18] MEDS: Rosuvastatin 10 MG Tab PO SCH (20:26)
[2017-06-18] MEDS: Montelukast 10 MG Tab PO SCH (20:27)
[2017-06-18] MEDS: Gabapentin 300 MG Cap PO SCH (20:27)
[2017-06-19] MEDS: Levothyroxine 50 MCG Tab PO SCH (05:34)
[2017-06-19] MEDS: Pantoprazole 40 MG Tab.CR PO SCH ×2 (05:34→06:02)
[2017-06-19] MEDS: Budesonide 0.25 MG/2 ML Neb Susp INH SCH (06:25)
[2017-06-19 08:09] VITALS: BP 158/66
[2017-06-19] MEDS: Insulin Aspart 100 Units/ML 3 ML Pen SUBCUT SCH (08:10)
[2017-06-19] MEDS: Insulin Detemir 100 Units/ML 3 ML Pen SUBCUT SCH (08:11)
[2017-06-19] MEDS: Isosorbide Mononitrate 60 MG Tab.ER PO SCH (08:14)
[2017-06-19] MEDS: Metoprolol Tartrate 25 MG Tab PO SCH (08:15)
[2017-06-19] MEDS: Tamsulosin 0.4 MG Cap.ER PO SCH (08:15)
[2017-06-19] MEDS: Aspirin 81 MG Tab.EC PO SCH (08:15)
[2017-06-19] MEDS: NAPHAZOLINE HCL EYEBOTH SCH (08:15)
[2017-06-19] MEDS: PHENIRAMINE EYEBOTH SCH (08:15)
[2017-06-19] MEDS: Furosemide 40 MG Tab PO SCH (08:16)
[2017-06-19] MEDS: Clopidogrel 75 MG Tab PO SCH (08:17)
--- NOTE | 2017-06-19 09:00 | PCM.DCSUM1 ---
Discharge Summary - Hospital Course Free Text/Narrative:: Steve Price is a 77 yo male who presents to our ED on 06/17/17 with substernal chest pain, palpitations, worsening shortness of breath. Symptoms started approximately 17:15 this evening after albuterol neb treatment. He started to have palpitations or racing heart rate and burning sensation substernal to his chest. He took 3 nitroglycerin with with relief of his discomfort. His last nitroglycerin was at approximately 17:45. The pain is described as a burning sensation and did radiate to his neck. He has had a history of ND in these symptoms were similar. Upon arrival he was pain-free with mild worsening shortness of breath. He was taking all of his home medications and there were no changes. There is no increased weight or edema in his lower extremities and a home health nurse was present to answer all the provider questions. Once in the ED temperature was 97.6 Fahrenheit. Pulse 121. Respirations 22. Blood pressure 150/109. Pulse ox 95% on oxygen. A 12-lead EKG was obtained revealing atrial flutter with 2:1 AV block, left axis deviation, severe left anterior fascicular block, no acute ST changes. It was of poor EKG reading. A previous EKG from June 30, 2016 was obtained revealing a sinus rhythm at a rate of 81 with a few atrial premature complexes. Labs are obtained: White count normal at 6.63 hemoglobin low at 12.5. Hematocrit low at 37.9. Blood count low at 162,000. He was normocytic. Neutrophils were elevated at 75.7 PT was normal at 10.3. INR normal at 0.95. Sodium normal at 143. Potassium 3.8 chloride 103. Carbon dioxide 32. Anion gap 11.8. BUN was high at 20. Head and was high at 1.9. Estimated GFR was 35. Glucose is high at 196. Calcium normal at 192. Magnesium low at 1.5. Bilirubin was normal at 0.6. Liver enzymes were normal with AST and 19, ALT at 29, alkaline phosphatase of 81. Troponin negative. CRP less than 0.2. BNP was slightly elevated at 493. Albumin was normal at 3.6. TSH was normal at 2.392. UA was negative. IV was established normal saline at 50 mL per hour and a diltiazem bolus of 10 mg IVP was given followed by another 5 mg IV push. Chest x-ray was obtained and reviewed with ER physician showing no obvious acute intrathoracic abnormalities. Diltiazem drip was started with titration protocol. Magnesium sulfate IV was ordered to replenish. He carries a rather complicated history including: HTN, HLD, ND with stent placement, COPD, emphysema, GERD, chronic back pain, osteoporosis, chronic headaches, stroke in 1971, type II DM, and chronic home oxygen use. He was a previous smoker. He was subsequently admitted to our ICU. He is a DNR. His primary care provider is Dr. Ovalle. Patient did convert to sinus arrhythmia with PAC's after cardiazem drip was started. He tolerated this well. Troponin did elevate minimally and trended down , thought to be due to demand ischemia. HR remained controlled and in sinus arrhythmia on telemetry for the remainder of his stay. Magnesium was initially mildly low, supplemented and remained normal thereafter. Echocardiogram was obtained with results/report pending at time of discharge. A1C was 7.7, normal TSH. Lipids in acceptable range aside from low HDL, continue on current statin treatment. No other medication changes were made for discharge. PT/OT worked with him. [facility] was also consulted. Patient will be discharged home today with continued [facility] services. He is to follow up with [facility] PCP within one week of discharge. He is also to follow up with [facility] [employer], [facility] wishes to arrange this appointment. - Discharge Data Discharge Date: 06/19/17 (admit date 06/17/17) Discharge Disposition: Home, Self-Care 01 Condition: Fair - Discharge Diagnosis/Problem(s) (1) New onset atrial flutter SNOMED Code(s): 5609054 ICD Code: I48.92 - UNSPECIFIED ATRIAL FLUTTER Status: Resolved Priority: High Current Visit: Yes Problem Details: Now in sinus arrhythmia (2) Chest pressure SNOMED Code(s): 02001171 ICD Code: R07.89 - OTHER CHEST PAIN Status: Resolved Priority: High Current Visit: Yes (3) Hypomagnesemia SNOMED Code(s): 385963802 ICD Code: E83.42 - HYPOMAGNESEMIA Status: Resolved Priority: High Current Visit: Yes (4) CKD (chronic kidney disease) stage 3, GFR 30-59 ml/min SNOMED Code(s): 957379630 ICD Code: N18.3 - CHRONIC KIDNEY DISEASE, STAGE 3 (MODERATE) Status: Chronic Priority: Medium Current Visit: Yes (5) COPD (chronic obstructive pulmonary disease) with chronic bronchitis SNOMED Code(s): 433761743 ICD Code: J44.9 - CHRONIC OBSTRUCTIVE PULMONARY DISEASE, UNSPECIFIED Status : Chronic Priority: Medium Current Visit: Yes (6) Diabetes mellitus type 2 in obese SNOMED Code(s): 45222770 ICD Code: E11.9 - TYPE 2 DIABETES MELLITUS WITHOUT COMPLICATIONS; E66.9 - OBESITY, UNSPECIFIED Status: Chronic Priority: Medium Current Visit: Yes (7) Acute coronary syndrome SNOMED Code(s): 988300426 ICD Code: I24.9 - ACUTE ISCHEMIC HEART DISEASE, UNSPECIFIED Status: Resolved Priority: High Current Visit: Yes (8) Hyperlipidemia SNOMED Code(s): 12217247 ICD Code: E78.5 - HYPERLIPIDEMIA, UNSPECIFIED Status: Chronic Priority: Medium Current Visit: Yes - Patient Summary/Data Operative Procedure(s) Performed: None Complications: None Consults: Consultations 06/17/17 23:37 Consult to Case Management [CONS] Routine Consult to [facility] [CONS] Routine Consult to [facility] Labs Pending at D/C: No labs pending Echocardiogram report is pending; will be forwarded to [facility] and Dr. Ovalle for review. Recommended Follow-up Testing/Procedures: Patient discharge instructions: Nursing: give flu vaccine prior to d/c or chart refusal. Thank you. Continue supplemental oxygen therapy and check blood sugars as per your routine and orders prior to hospitalization. Continue all usual home medications You are being referred by Dr Koch to follow-up with your [facility] Of [employer] as an outpatient. -A message has been left with the [facility] nurse to schedule this per the patient 's request. -The patient prefers [place]. -An echocardiogram was done during this hospitalization; results/report is pending at time of discharge Please wear luz maria hose during the day for swelling. Follow up with [facility] provider, Dr. Ovalle within one week of discharge; echocardiogram results pending and will be forwarded for PCP's review Planned Operative Procedure(s) after DC: None Hospital Course: As above - Patient Instructions Diet: Heart Healthy Diet, Usual Diet as Tolerated, Diabetic Diet Activity: As Tolerated Driving: Do Not Drive (until released from PCP or [facility] [employer]) Showering/Bathing: May Shower Notify Provider of: Fever, Increased Pain, Nausea and/or Vomiting (worsening of chest pain/pressure or palpitations, dizziness) - Discharge Plan Home Medications: Home Meds Aspirin [Adult Low Dose Aspirin EC] 81 mg PO DAILY 03/05/14 [History] Clopidogrel [Plavix] 75 mg PO DAILY 03/05/14 [History] Insulin Glarg,Human.Rec.Analog [Lantus] 42 unit SUBCUT BID 03/05/14 [History] Isosorbide Mononitrate [Imdur] 120 mg PO DAILY 03/05/14 [History] Nitroglycerin [Nitrostat] 0.4 mg SL ASDIRECTED PRN 03/05/14 [History] Polyethylene Glycol 1000 [Polyethylene Glycol] 1 scoop PO ASDIRECTED 03/05/14 [ History] Insulin Aspart [Novolog Flexpen] 17 unit SQ BIDMEALS 04/24/14 [History] Acetaminophen [Acetaminophen Extra Strength] 1,000 mg PO BID PRN 10/15/14 [ History] Insulin Aspart [Novolog Flexpen] 26 unit SQ PCDINNER 10/15/14 [History] Metoprolol Tartrate 25 mg PO BID 10/15/14 [History] Ranolazine [Ranexa] 500 mg PO BID 12/28/14 [History] Fluticasone Propionate [Flonase] 2 spray NS DAILY 03/30/16 [History] Pantoprazole [ProTONIX] 40 mg PO DAILY 03/30/16 [History] Albuterol [Ventolin HFA] 1 puff INH QID PRN 06/30/16 [History] Antacids 1 tab PO ASDIRECTED 06/30/16 [History] Budesonide [Pulmicort] 0.25 mg INH BID 06/30/16 [History] Furosemide [Lasix] 40 mg PO DAILY 06/30/16 [History] Levothyroxine Sodium [Synthroid] 50 mcg PO DAILY 06/30/16 [History] Montelukast [Singulair] 10 mg PO BEDTIME 06/30/16 [History] Naphazoline HCl/Pheniramine [Opcon-A Eye Drops] 1 drop EYEBOTH DAILY 06/30/16 [ History] Ondansetron [Zofran ODT] 4 mg PO Q8H PRN 06/30/16 [History] Rosuvastatin [Crestor] 20 mg PO DAILY 06/30/16 [History] Tamsulosin [Flomax] 0.4 mg PO BEDTIME 06/30/16 [History] Arformoterol [Brovana] 15 mcg NEB BIDRT 06/17/17 [History] Captopril 50 mg PO BID 06/17/17 [History] Dextromethorphan/guaiFENesin [Robitussin DM] 10 ml PO Q12H PRN 06/17/17 [History ] Gabapentin [Neurontin] 300 mg PO BEDTIME 06/17/17 [History] Polyvinyl Alcohol/Povidone [Artificial Tears Drops] 15 ml OP QID PRN 06/17/17 [ History] Umeclidinium [place] [Incruse Ellipta*] 62.5 mcg IH DAILY 06/17/17 [History] lamoTRIgine [Lamotrigine] 50 mg PO BEDTIME 06/17/17 [History] Patient Handouts: Coronary Artery Disease, Male, Type 2 Diabetes Mellitus, Adult, Atrial Fibrillation, [id number] Forms: ED Department Discharge Referrals: Saleem Guillermo Jr, MD [Ordering Only Provider] - Joshua Ovalle MD [Primary Care Provider] - - Discharge Summary/Plan Comment DC Time >30 min.: Yes (40 minutes) - General Info Date of Service: 06/19/17 Admission Dx/Problem (Free Text: New Onset Atrial Flutter Chest pain resolved. No issues overnight. [facility] was in to visit patient this morning. Plans for DC home today with continued [facility] services. Functional Status: Reports: Pain Controlled, Tolerating Diet, Ambulating, Urinating. Denies: New Symptoms - Review of Systems General: Reports: No Symptoms. Denies: Fever, Weakness HEENT: Reports: No Symptoms Pulmonary: Reports: No Symptoms. Denies: Shortness of Breath, Cough Cardiovascular: Reports: No Symptoms. Denies: Chest Pain, Palpitations, Dyspnea on Exertion, Lightheadedness Gastrointestinal: Reports: No Symptoms. Denies: Abdominal Pain Genitourinary: Reports: No Symptoms Musculoskeletal: Reports: No Symptoms Neurological: Reports: No Symptoms. Denies: Confusion, Dizziness - Patient Data Vitals - Most Recent: Last Vital Signs Temp 96.7 F 06/19/17 08:07 Pulse 72 06/19/17 08:15 Resp 16 06/19/17 08:07 BP 158/66 H 06/19/17 08:15 Pulse Ox 97 06/19/17 08:07 Weight - Most Recent: 247 lb 1.6 oz I&O - Last 24 hours: Intake & Output 06/18/17 06/19/17 06/19/17 22:59 06:59 14:59 Intake Total 1500 800 Output Total 2500 1800 Balance -1000 -1000 Lab Results - Last 24 hrs: Laboratory Results - last 24 hr 06/18/17 06/18/17 06/18/17 Range/Units 10:52 12:00 16:43 WBC (4.23-9.07) K/mm3 RBC (4.63-6.08) M/mm3 Hgb (13.7-17.5) gm/L Hct (40.1-51.0) % MCV (79.0-92.2) fl MCH (25.7-32.2) pg MCHC (32.2-35.5) g/dl RDW Std Deviation (35.1-43.9) fL Plt Count (163-337) K/mm3 MPV (9.4-12.3) fl Neut % (Auto) (34.0-67.9) % Lymph % (Auto) (21.8-53.1) % [place] % (Auto) (5.3-12.2) % Eos % (Auto) (0.8-7.0) Baso % (Auto) (0.1-1.2) % Neut # (Auto) (1.78-5.38) K/mm3 Lymph # (Auto) (1.32-3.57) K/mm3 [place] # (Auto) (0.30-0.82) K/mm3 Eos # (Auto) (0.04-0.54) K/mm3 Baso # (Auto) (0.01-0.08) K/mm3 Sodium (136-145) mEq/L Potassium (3.5-5.1) mEq/L Chloride (98-107) mEq/L Carbon Dioxide (21-32) mEq/L Anion Gap (5-15) BUN (7-18) mg/dL Creatinine (0.7-1.3) mg/dL Est Cr Clr Drug Dosing mL/min Estimated GFR (MDRD) (>60) mL/min BUN/Creatinine Ratio (14-18) Glucose (83-115) mg/dL POC Glucose 183 H 107 (83-110) mg/dL Calcium (8.5-10.1) mg/dL Magnesium (1.8-2.4) mg/dl CK-MB (CK-2) 3.8 H (0-3.6) ng/ml Troponin I 0.031 (0.00-0.056) ng/mL 06/18/17 06/19/17 06/19/17 Range/Units 20:22 05:30 05:30 WBC 7.00 (4.23-9.07) K/mm3 RBC 3.98 L (4.63-6.08) M/mm3 Hgb 11.7 L (13.7-17.5) gm/L Hct 35.6 L (40.1-51.0) % MCV 89.4 (79.0-92.2) fl MCH 29.4 (25.7-32.2) pg MCHC 32.9 (32.2-35.5) g/dl RDW Std Deviation 46.1 H (35.1-43.9) fL Plt Count 144 L (163-337) K/mm3 MPV 11.2 (9.4-12.3) fl Neut % (Auto) 75.3 H (34.0-67.9) % Lymph % (Auto) 14.6 L (21.8-53.1) % [place] % (Auto) 8.0 (5.3-12.2) % Eos % (Auto) 1.4 (0.8-7.0) Baso % (Auto) 0.1 (0.1-1.2) % Neut # (Auto) 5.27 (1.78-5.38) K/mm3 Lymph # (Auto) 1.02 L (1.32-3.57) K/mm3 [place] # (Auto) 0.56 (0.30-0.82) K/mm3 Eos # (Auto) 0.10 (0.04-0.54) K/mm3 Baso # (Auto) 0.01 (0.01-0.08) K/mm3 Sodium 143 (136-145) mEq/L Potassium 3.9 (3.5-5.1) mEq/L Chloride 103 (98-107) mEq/L Carbon Dioxide 31 (21-32) mEq/L Anion Gap 12.9 (5-15) BUN 22 H (7-18) mg/dL Creatinine 1.5 H (0.7-1.3) mg/dL Est Cr Clr Drug Dosing 49.29 mL/min Estimated GFR (MDRD) 45 (>60) mL/min BUN/Creatinine Ratio 14.7 (14-18) Glucose 135 H (83-115) mg/dL POC Glucose 168 H (83-110) mg/dL Calcium 8.5 (8.5-10.1) mg/dL Magnesium 1.9 (1.8-2.4) mg/dl CK-MB (CK-2) (0-3.6) ng/ml Troponin I (0.00-0.056) ng/mL Med Orders - Current: Current Medications Acetaminophen (Tylenol) 650 mg RECTAL Q4H PRN PRN Reason: Fever Acetaminophen (Tylenol) 650 mg PO Q4H PRN PRN Reason: Fever Last Admin: 06/18/17 19:32 Dose: 650 mg Albuterol/Ipratropium (Duoneb 3.0-0.5 Mg/3 Ml) 3 ml NEB Q4HRRT PRN PRN Reason: Shortness of Breath Aspirin (Halfprin) 81 mg PO DAILY [facility] Last Admin: 06/19/17 08:15 Dose: 81 mg Budesonide (Pulmicort) 0.25 mg INH BIDRT [facility] Last Admin: 06/19/17 06:25 Dose: 0.25 mg Captopril (Capoten) 50 mg PO BID [facility] Last Admin: 06/19/17 08:13 Dose: 50 mg Clopidogrel Bisulfate (Plavix) 75 mg PO DAILY [facility] Last Admin: 06/19/17 08:17 Dose: 75 mg Furosemide (Lasix) 40 mg PO DAILY [facility] Last Admin: 06/19/17 08:16 Dose: 40 mg Gabapentin (Neurontin) 300 mg PO BEDTIME [facility] Last Admin: 06/18/17 20:27 Dose: 300 mg Hydralazine HCl (Apresoline) 20 mg IM Q4H PRN PRN Reason: Hypertension Sodium Chloride (Normal Saline) 1,000 mls @ 50 mls/hr IV ASDIRECTED [facility] Last Infusion: 06/17/17 22:53 Dose: 30 mls/hr Metoprolol Tartrate 5 mg/ (Sodium Chloride) 55 mls @ 100 mls/hr IV Q4H PRN PRN Reason: Tachycardia Diltiazem HCl 125 mg/ Sodium (Chloride) 125 mls @ 5 mls/hr IV TITRATE [facility]; 5 MG /HR PRN Reason: Protocol Insulin Aspart (Novolog) 17 unit SUBCUT BID@0700,1100 [facility] Last Admin: 06/19/17 08:10 Dose: 17 units Insulin Aspart (Novolog) 26 unit SUBCUT WITHDINNER [facility] Last Admin: 06/18/17 17:20 Dose: 26 units Insulin Detemir (Levemir) 42 unit SUBCUT BID [facility] Last Admin: 06/19/17 08:11 Dose: 42 units Isosorbide Mononitrate (Imdur) 120 mg PO DAILY [facility] Last Admin: 06/19/17 08:14 Dose: 120 mg Lamotrigine (Lamotrigine) 50 mg PO BEDTIME [facility] Last Admin: 06/18/17 20:26 Dose: 50 mg Levothyroxine Sodium (Synthroid) 50 mcg PO ACBRK [facility] Last Admin: 06/19/17 05:34 Dose: 50 mcg Magnesium Sulfate (Pharmacy To Dose - Magnesium Replacement) 1 dose .XX ASDIRECTED PRN PRN Reason: Other Metoprolol Tartrate (Lopressor) 25 mg PO Q12HR [facility] Last Admin: 06/19/17 08:15 Dose: 25 mg Miscellaneous Information (Remove Patch) 1 ea TRDERM Q72H PRN PRN Reason: PATCH REMOVAL Montelukast Sodium (Singulair) 10 mg PO BEDTIME [facility] Last Admin: 06/18/17 20:27 Dose: 10 mg Morphine Sulfate (Morphine) 1 mg IVPUSH Q3H PRN PRN Reason: Dyspnea Nitroglycerin (Nitrostat) 0.4 mg SL ASDIRECTED PRN PRN Reason: Chest Pain Last Admin: 06/18/17 12:13 Dose: 0.4 mg Ondansetron HCl (Zofran Odt) 4 mg PO Q8H PRN PRN Reason: Nausea Ondansetron HCl (Zofran) 4 mg IVPUSH Q4H PRN PRN Reason: Nausea/Vomiting Pantoprazole Sodium (Protonix) 40 mg PO DAILY@0700 [facility] Last Admin: 06/19/17 06:02 Dose: Not Given Naphazoline Hcl/Pheniramine [Opcon-A Eye Drops] 1 Drop 0 each EYEBOTH DAILY [facility] Last Admin: 06/19/17 08:15 Dose: 1 each Umeclidinium [place] (62.5 Mcg) 0 each INH DAILY [facility] Last Admin: 06/18/17 08:15 Dose: Not Given Potassium Chloride (Pharmacy To Dose - Potassium Replacement) 1 dose .XX ASDIRECTED PRN PRN Reason: Other Ranolazine (Ranexa) 500 mg PO BID [facility] Last Admin: 06/19/17 08:15 Dose: 500 mg Rosuvastatin Calcium (Crestor) 20 mg PO BEDTIME [facility] Last Admin: 06/18/17 20:26 Dose: 20 mg Scopolamine (Transderm-Scop) 1.5 mg TRDERM Q72H PRN PRN Reason: Nausea/Vomiting Sodium Chloride (Saline Flush) 10 ml FLUSH ASDIRECTED PRN PRN Reason: Keep Vein Open Last Admin: 06/17/17 19:20 Dose: 10 ml Tamsulosin HCl (Flomax) 0.4 mg PO DAILY [facility] Last Admin: 06/19/17 08:15 Dose: 0.4 mg Temazepam (Restoril) 7.5 mg PO BEDTIME PRN PRN Reason: Insomnia Discontinued Medications Amlodipine Besylate (Norvasc) 10 mg PO DAILY [facility] Diltiazem HCl (Diltiazem) 10 mg IVPUSH ONETIME ONE Stop: 06/17/17 18:40 Last Admin: 06/17/17 19:04 Dose: 10 mg Diltiazem HCl (Diltiazem) 5 mg IVPUSH ONETIME ONE Stop: 06/17/17 20:14 Last Admin: 06/17/17 22:54 Dose: Not Given Magnesium Sulfate 2 gm/ Premix 50 mls @ 25 mls/hr IV ONETIME ONE Stop: 06/17/17 20:39 Last Admin: 06/17/17 19:10 Dose: 25 mls/hr Diltiazem HCl 125 mg/ Sodium (Chloride) 125 mls @ 5 mls/hr IV TITRATE GUANAKO; 5 MG /HR PRN Reason: Protocol Sodium Chloride (Normal Saline) 1,000 mls @ 30 mls/hr IV ASDIRECTED [facility] Potassium Chloride 10 meq/ (Premix) 100 mls @ 100 mls/hr IV ASDIRECTED PRN PRN Reason: Other Lamotrigine (Lamotrigine) 50 mg PO BEDTIME [facility] Levothyroxine Sodium (Levothyroxine) 25 mcg PO DAILY [facility] Losartan Potassium (Cozaar) 100 mg PO DAILY [facility] Metoprolol Tartrate (Lopressor) 25 mg PO BID [facility] Montelukast Sodium (Singulair) 10 mg PO DAILY [facility] Non-Formulary Medication (Levalbuterol Tartrate [Xopenex Hfa]) 2 puff INH QID PRN PRN Reason: Dyspnea Rosuvastatin Calcium (Crestor) 20 mg PO DAILY [facility] - Exam Quality Assessment: Reports: Supplemental Oxygen (chronic and at baseline), DVT Prophylaxis General: Reports: Alert, Oriented, Cooperative, No Acute Distress HEENT: Reports: Pupils Equal, EOMI, Mucous Membr. Moist/[place] Neck: Reports: Supple Lungs: Reports: Clear to Auscultation, Normal Respiratory Effort, Decreased Breath Sounds (bases) Cardiovascular: Reports: Irregular Rhythm GI/Abdominal Exam: Normal Bowel Sounds, Soft, Non-Tender (Male) Exam: Deferred Rectal (Males) Exam: Deferred Extremities: Normal Range of Motion (teds bilat to LE) Skin: Reports: Warm, Dry Neurological: Reports: No New Focal Deficit Psy/Mental Status: Reports: Alert, Normal Affect, Normal Mood *Q Meaningful Use (DIS) - VTE *Q VTE Criteria *Q: - Stroke *Q Stroke Criteria *Q: - AMI *Q AMI Criteria *Q:
[2017-06-19] MEDS: UMECLIDINIUM BROMIDE 62.5 MCG INH SCH (09:50)
== END 2017-06-19 10:33 | disposition home or self-care (01) | DRG 309 ==
LOC: JD.ED 18:08 → JD.ICU 21:00
PROVIDERS: ADMIT Internal Medicine; ATTEND Internal Medicine
DX: I48.92 Unspecified atrial flutter (principal); I24.9 Acute ischemic heart disease, unspecified; E83.42 Hypomagnesemia; E78.5 Hyperlipidemia, unspecified; I25.10 Atherosclerotic heart disease of native coronary artery without angina pectoris; I12.9 Hypertensive chronic kidney disease with stage 1 through stage 4 chronic kidney disease, or unspecified chronic kidney disease; N18.3 Chronic kidney disease, stage 3 (moderate); Z87.891 Personal history of nicotine dependence; Z95.5 Presence of coronary angioplasty implant and graft; I25.2 Old myocardial infarction; E11.9 Type 2 diabetes mellitus without complications; Z79.4 Long term (current) use of insulin; J44.9 Chronic obstructive pulmonary disease, unspecified; K21.9 Gastro-esophageal reflux disease without esophagitis; Z66 Do not resuscitate; G89.29 Other chronic pain; M54.9 Dorsalgia, unspecified; R51 Headache; M19.90 Unspecified osteoarthritis, unspecified site; Z86.73 Personal history of transient ischemic attack (TIA), and cerebral infarction without residual deficits; Z79.02 Long term (current) use of antithrombotics/antiplatelets; Z99.81 Dependence on supplemental oxygen; Z79.899 Other long term (current) drug therapy
CPT/HCPCS: 36415; 71010; 71010-26; 80048; 80053; 80061; 81001; 82553; 82962; 83735; 83880; 84439; 84443; 84484; 85025; 85610; 86140; 93005; 93010; 93306; 94640; 96365; 96366; 96375; 99285; 99285-25; A9270-GY; J3475; J3490; J7040; J7050; J7634

== ENCOUNTER 2017-08-26 13:43 | Emergency (ER) | payer MEDICAID, MEDICARE, OTHER ==
[2017-08-26 13:54] VITALS: BP 175/86
--- NOTE | 2017-08-26 14:06 | EDM.PDOC ---
ED HPI GENERAL MEDICAL PROBLEM - General Chief Complaint: Respiratory Problem Stated Complaint: [facility] Time Seen by Provider: 08/26/17 14:05 Source of Information: Reports: Patient History Limitations: Reports: No Limitations - History of Present Illness INITIAL COMMENTS - FREE TEXT/NARRATIVE: 77-year-old male presents to the ED per ambulance due to severe paroxysmal cough to the point of emesis. Is coughing up some blood but it's from irritation of the left naris from his nasal prongs. He is swallowing some of the blood. He's coughing up is mostly yellowish sputum. He's had intermittent fever and chills. He reports illness started about . He did have a flu shot. His appetite is been very poor. Bowel function is still normal. He can 't stop coughing however he's been coughing since 2:00 this morning with no ability to sleep. He is maintained on oxygen at 4 L/m by nasal prongs at all times due to severe COPD. Not sure what his blood sugars are running as he takes insulin to control his diabetes. He's been trying to take all of his other medications. None of these medicines is Plavix which is contributing to his nasal bleeding. Onset: Gradual (Started over a week ago.) Onset Date: 08/18/17 Duration: Day(s):, Getting Worse Location: Reports: Chest (Severe paroxysmal cough with fever and chills.), Other Quality: Reports: Other Severity: Severe (Severe paroxysmal coughing.) Improves with: Reports: None Worsens with: Reports: Other (Lying down makes things worse.) Context: Denies: Activity, Exercise, Lifting, Sick Contact, Trauma, Other Associated Symptoms: Reports: Chest Pain, Cough, cough w sputum (Yellowish tinged sputum with blood recently because of left nasal bleeding.), Fever/Chills , Loss of Appetite, Malaise, Shortness of Breath (On minimal exertion. He is on 4 L/m of oxygen at all times.), Weakness. Denies: No Other Symptoms (From coughing so much.), Confusion, Diaphoresis, Headaches (Intermittent fever then chills.), Nausea/Vomiting, Syncope Treatments [employer]: Reports: Other (see below) (None.) Throat Pain Score (Numeric/FACES): 8 - Related Data Allergies Allergy/AdvReac Type Severity Reaction Status Date / Time codeine Allergy Nausea and Verified 06/17/17 23:20 Vomiting fish oil Allergy Nausea and Verified 06/17/17 23:20 Vomiting glipizide [From Glucotrol] Allergy Other Verified 06/17/17 23:20 ibuprofen Allergy Other Verified 06/17/17 23:20 metformin Allergy Other Verified 06/17/17 23:20 pioglitazone [From Actos] Allergy Other Verified 06/17/17 23:20 Home Meds: Home Meds Aspirin [Adult Low Dose Aspirin EC] 81 mg PO DAILY 03/05/14 [History] Clopidogrel [Plavix] 75 mg PO DAILY 03/05/14 [History] Insulin Glarg,Human.Rec.Analog [Lantus] 42 unit SUBCUT BID 03/05/14 [History] Isosorbide Mononitrate [Imdur] 120 mg PO DAILY 03/05/14 [History] Nitroglycerin [Nitrostat] 0.4 mg SL ASDIRECTED PRN 03/05/14 [History] Polyethylene Glycol 1000 [Polyethylene Glycol] 1 scoop PO ASDIRECTED 03/05/14 [ History] Insulin Aspart [Novolog Flexpen] 17 unit SQ BIDMEALS 04/24/14 [History] Acetaminophen [Acetaminophen Extra Strength] 1,000 mg PO BID PRN 10/15/14 [ History] Insulin Aspart [Novolog Flexpen] 26 unit SQ PCDINNER 10/15/14 [History] Metoprolol Tartrate 25 mg PO BID 10/15/14 [History] Ranolazine [Ranexa] 500 mg PO BID 12/28/14 [History] Fluticasone Propionate [Flonase] 2 spray NS DAILY 03/30/16 [History] Pantoprazole [ProTONIX] 40 mg PO DAILY 03/30/16 [History] Albuterol [Ventolin HFA] 1 puff INH QID PRN 06/30/16 [History] Antacids 1 tab PO ASDIRECTED 06/30/16 [History] Budesonide [Pulmicort] 0.25 mg INH BID 06/30/16 [History] Furosemide [Lasix] 40 mg PO DAILY 06/30/16 [History] Levothyroxine Sodium [Synthroid] 50 mcg PO DAILY 06/30/16 [History] Montelukast [Singulair] 10 mg PO BEDTIME 06/30/16 [History] Naphazoline HCl/Pheniramine [Opcon-A Eye Drops] 1 drop EYEBOTH DAILY 06/30/16 [ History] Ondansetron [Zofran ODT] 4 mg PO Q8H PRN 06/30/16 [History] Rosuvastatin [Crestor] 20 mg PO DAILY 06/30/16 [History] Tamsulosin [Flomax] 0.4 mg PO BEDTIME 06/30/16 [History] Arformoterol [Brovana] 15 mcg NEB BIDRT 06/17/17 [History] Captopril 50 mg PO BID 06/17/17 [History] Dextromethorphan/guaiFENesin [Robitussin DM] 10 ml PO Q12H PRN 06/17/17 [History ] Gabapentin [Neurontin] 300 mg PO BEDTIME 06/17/17 [History] Polyvinyl Alcohol/Povidone [Artificial Tears Drops] 15 ml OP QID PRN 06/17/17 [ History] Umeclidinium [place] [Incruse Ellipta*] 62.5 mcg IH DAILY 06/17/17 [History] lamoTRIgine [Lamotrigine] 50 mg PO BEDTIME 06/17/17 [History] Azithromycin [Zithromax] 250 mg PO DAILY #6 tablet 08/26/17 [Rx] Benzonatate [Tessalon Perles] 200 mg PO TID PRN #18 cap 08/26/17 [Rx] Past Medical History HEENT History: Reports: Impaired Vision Other HEENT History: wears glasses Cardiovascular History: Reports: High Cholesterol, Hypertension, MS Respiratory History: Reports: COPD, SOB, Other (See Below) Other Respiratory History: emphasema Gastrointestinal History: Reports: GERD Genitourinary History: Reports: None Musculoskeletal History: Reports: Back Pain, Chronic, Osteoarthritis Neurological History: Reports: Headaches, Chronic Other Neuro History: Stroke in 1972 Endocrine/Metabolic History: Reports: Diabetes, Type II Hematologic History: Reports: None Other Hematologic History: hypomagnesemia Oncologic (Cancer) History: Reports: None Dermatologic History: Reports: None Other Dermatologic History: seborrheic keratosis - Infectious Disease History Infectious Disease History: Reports: Influenza, Measles - Past Surgical History Head Surgeries/Procedures: Reports: None Cardiovascular Surgical History: Reports: Coronary Artery Stent GI Surgical History: Reports: Colonoscopy Social & Family History - Family History Family Medical History: Noncontributory - Tobacco Use Smoking Status *Q: Never Smoker Years of Tobacco use: 50 Packs/Tins Daily: 2 Used Tobacco, but Quit: Yes Month Tobacco Last Used: 6 years Second Hand Smoke Exposure: No - Caffeine Use Caffeine Use: Reports: Coffee, Soda - Alcohol Use Days Per Week of Alcohol Use: 0 - Recreational Drug Use Recreational Drug Use: No ED ROS GENERAL - Review of Systems Review Of Systems: See Below Constitutional: Reports: Fever, Chills, Malaise, Weakness, Fatigue, Decreased Appetite, Weight Loss HEENT: Reports: Nosebleed (Bleeding from the left naris where his nasal prongs is poked him in the nasal septum. Bleeding is continuing mildly. He is on Plavix.), Throat Pain (Throat is getting sore with hoarse voice around his voice box.) Respiratory: Reports: Shortness of Breath, Wheezing, Cough, Sputum, Hemoptysis ( No hemoptysis is I think from the left nosebleed) Cardiovascular: Reports: Chest Pain ( with blood traveling down the posterior oropharynx. from coughing. ), Blood Pressure Problem, Claudication (Chronic hypertension), Dyspnea on Exertion (Always has some swelling in his lower extremities perhaps worse lately. Chronically.), Edema, Orthopnea. Denies: Lightheadedness (Unable to lie flat to breathe the last 2 nights.) Endocrine: Reports: Fatigue, Other GI/Abdominal: Reports: Abdominal Pain (He has not been checking his sugars so he doesn't know how high his blood sugars have been.), Decreased Appetite ( Feels bloated pressured up.), Distension (Marked from aerophagia.), Nausea ( Intermittently. No real vomiting.). Denies: Difficulty Swallowing, Flatus, Hematochezia, Melena, Vomiting : Reports: Frequency, Incontinence Musculoskeletal: Reports: Back Pain (Urge component.), Joint Pain (Knees and hips.) Skin: Reports: Bruising (Bruises easily) Neurological: Reports: Difficulty Walking, Gait Disturbance (Due to weakness in his lower extremities) Psychiatric: Reports: No Symptoms Hematologic/Lymphatic: Reports: No Symptoms Immunologic: Reports: No Symptoms ED EXAM, GENERAL - Physical Exam Exam: See Below Exam Limited By: Respiratory Distress (Severe intermittent paroxysmal coughing. O2 sats are 97% on 4 L. Respiratory rate is 22/m.) General Appearance: Alert, WD/WN, Moderate Distress Eye Exam: Bilateral Eye: Normal Inspection Ears: Normal TMs Nose: Other (Bleeding from the left anterior naris where appears that his nasal prongs have scraped the anterior nasal septum. Down to a slight ooze at this time. May require silver nitrate application if it continues.) Throat/Mouth: Normal Inspection, Normal Lips, Normal Oropharynx, Other. No: Normal Teeth Head: Atraumatic, Normocephalic (Hoarse voice but no sign of oropharyngeal infection.) Neck: Normal Inspection, Supple, Non-Tender, Full Range of Motion. No: Carotid Bruit, Lymphadenopathy (L), Lymphadenopathy (R) Respiratory/Chest: Respiratory Distress, Decreased Breath Sounds (Marked tachypnea. Decreased breath sounds the lower 50% of lung miranda.), Wheezing ( Spine Michael wheezes in all 4 lung miranda.), Other (Intermittent severe paroxysmal cough.). No: No Accessory Muscle Use Cardiovascular: Regular Rate, Rhythm, No Gallop, No Murmur, No Rub. No: Normal Peripheral Pulses, No Edema Peripheral Pulses: 0: Posterior Tibial (L) (No pulses are palpable in his feet due to gross edema.), Posterior Tibial (R), Dorsalis Pedis (L), Dorsalis Pedis ( R) GI/Abdominal: Other (The abdomen is very protuberant and distended moderately tympanitic to percussion compatible with aerophagia.). No: Rigid, Rebound, Tender Extremities: Pedal Edema (3+ pitting edema bilaterally up to the tibial plateaus on each side. He is wearing compression stockings.) Neurological: Alert, Oriented, CN II-XII Intact, Normal Cognition Psychiatric: Normal Affect, Normal Mood Skin Exam: Warm, Dry, Intact, Normal Color, No Rash EKG INTERPRETATION EKG Date: 08/26/17 Time: 14:30 Rhythm: NSR Rate (Beats/Min): 82 [place]: Normal P-Wave: Enlarged (He appears to have biatrial hypertrophy.) QRS: Other (Q waves in lead V1 and V2 compatible with an old anteroseptal myocardial infarction.) ST-T: Normal QT: Prolonged EKG Interpretation Comments: Abnormal ECG Course - Vital Signs Last Recorded V/S: Last Vital Signs Temp 36.9 C 08/26/17 13:50 Pulse 81 08/26/17 13:50 Resp BP 175/86 H 08/26/17 13:50 Pulse Ox 94 L 08/26/17 15:46 - Orders/Labs/Meds Orders: Active Orders 24 hr Category Date Time Status EKG Documentation Completion [RC] STAT Care 08/26/17 14:07 Active Oxygen Therapy [RC] ASDIRECTED Care 08/26/17 14:07 Active Oxygen Therapy [RC] ASDIRECTED Care 08/26/17 14:15 Active Peripheral IV Care [RC] . DIRECTED Care 08/26/17 14:07 Active RT Aerosol Therapy [RC] ASDIRECTED Care 08/26/17 15:46 Active Chest 1V Frontal [CR] Stat Exams 08/26/17 14:06 Taken CULTURE BLOOD [BC] Stat Lab 08/26/17 15:22 Received CULTURE BLOOD [BC] Stat Lab 08/26/17 15:30 Received Blood Culture x2 Reflex Set [OM.PC] Stat Oth 08/26/17 14:07 Ordered Peripheral IV Insertion Adult [OM.PC] Stat Oth 08/26/17 14:07 Ordered Labs: Laboratory Tests 08/26/17 08/26/17 08/26/17 Range/Units 15:00 15:22 15:22 WBC 7.90 (4.23-9.07) K/mm3 RBC 3.78 L (4.63-6.08) M/mm3 Hgb 11.1 L (13.7-17.5) gm/L Hct 34.7 L (40.1-51.0) % MCV 91.8 (79.0-92.2) fl MCH 29.4 (25.7-32.2) pg MCHC 32.0 L (32.2-35.5) g/dl RDW Std Deviation 46.5 H (35.1-43.9) fL Plt Count 149 L (163-337) K/mm3 MPV 10.4 (9.4-12.3) fl Neutrophils % (Manual) 79 H (40-60) % Band Neutrophils % 0 (0-10) % Lymphocytes % (Manual) 15 L (20-40) % Atypical Lymphs % 0 % Monocytes % (Manual) 5 (2-10) % Eosinophils % (Manual) 0 L (0.8-7.0) % Basophils % (Manual) 0 L (0.2-1.2) Myelocytes % 1 Platelet Estimate Adequate Plt Morphology Comment Normal RBC Morph Comment Normal ESR (0-15) mm/hr PT 10.7 (8.0-13.0) SECONDS INR 0.98 Sodium (136-145) mEq/L Potassium (3.5-5.1) mEq/L Chloride (98-107) mEq/L Carbon Dioxide (21-32) mEq/L Anion Gap (5-15) BUN (7-18) mg/dL Creatinine (0.7-1.3) mg/dL Est Cr Clr Drug Dosing Estimated GFR (MDRD) (>60) mL/min BUN/Creatinine Ratio (14-18) Glucose (83-115) mg/dL Lactic Acid (0.4-2.0) mmol/L Calcium (8.5-10.1) mg/dL Magnesium (1.8-2.4) mg/dl Total Bilirubin (0.2-1.0) mg/dL AST (15-37) U/L ALT (16-63) U/L Alkaline Phosphatase (46-116) U/L CK-MB (CK-2) (0-3.6) ng/ml Troponin I (0.00-0.056) ng/mL C-Reactive Protein (<1.0) mg/dL NT-Pro-B Natriuret Pep (0-450) pg/mL Total Protein (6.4-8.2) g/dl Albumin (3.4-5.0) g/dl Globulin gm/dL Albumin/Globulin Ratio (1-2) Urine Color Yellow (Yellow) Urine Appearance Clear (Clear) Urine pH 6.5 (5.0-8.0) Ur Specific [place] 1.010 (1.005-1.030) Urine Protein Negative (Negative) Urine Glucose (UA) Negative (Negative) Urine Ketones Negative (Negative) Urine Occult Blood Negative (Negative) Urine Nitrite Negative (Negative) Urine Bilirubin Negative (Negative) Urine Urobilinogen 1.0 (0.2-1.0) Ur Leukocyte Esterase Negative (Negative) Urine RBC Not seen (0-5) /hpf Urine WBC Not seen (0-5) /hpf Ur Epithelial Cells Not seen (0-5) /hpf Urine Bacteria Not seen (FEW) /hpf Urine Mucus Not seen (FEW) /hpf 08/26/17 08/26/17 08/26/17 Range/Units 15:22 15:22 15:22 WBC (4.23-9.07) K/mm3 RBC (4.63-6.08) M/mm3 Hgb (13.7-17.5) gm/L Hct (40.1-51.0) % MCV (79.0-92.2) fl MCH (25.7-32.2) pg MCHC (32.2-35.5) g/dl RDW Std Deviation (35.1-43.9) fL Plt Count (163-337) K/mm3 MPV (9.4-12.3) fl Neutrophils % (Manual) (40-60) % Band Neutrophils % (0-10) % Lymphocytes % (Manual) (20-40) % Atypical Lymphs % % Monocytes % (Manual) (2-10) % Eosinophils % (Manual) (0.8-7.0) % Basophils % (Manual) (0.2-1.2) Myelocytes % Platelet Estimate Plt Morphology Comment RBC Morph Comment ESR 31 H (0-15) mm/hr PT (8.0-13.0) SECONDS INR Sodium 140 (136-145) mEq/L Potassium 3.8 (3.5-5.1) mEq/L Chloride 103 (98-107) mEq/L Carbon Dioxide 31 (21-32) mEq/L Anion Gap 9.8 (5-15) BUN 17 (7-18) mg/dL Creatinine 1.6 H (0.7-1.3) mg/dL Est Cr Clr Drug Dosing TNP Estimated GFR (MDRD) 42 (>60) mL/min BUN/Creatinine Ratio 10.6 L (14-18) Glucose 182 H (83-115) mg/dL Lactic Acid 1.2 (0.4-2.0) mmol/L Calcium 9.0 (8.5-10.1) mg/dL Magnesium 1.7 L (1.8-2.4) mg/dl Total Bilirubin 0.6 (0.2-1.0) mg/dL AST 17 (15-37) U/L ALT 20 (16-63) U/L Alkaline Phosphatase 71 (46-116) U/L CK-MB (CK-2) 6.5 H (0-3.6) ng/ml Troponin I < 0.017 (0.00-0.056) ng/mL C-Reactive Protein < 0.2 (<1.0) mg/dL NT-Pro-B Natriuret Pep 363 (0-450) pg/mL Total Protein 6.9 (6.4-8.2) g/dl Albumin 3.4 (3.4-5.0) g/dl Globulin 3.5 gm/dL Albumin/Globulin Ratio 1.0 (1-2) Urine Color (Yellow) Urine Appearance (Clear) Urine pH (5.0-8.0) Ur Specific [place] (1.005-1.030) Urine Protein (Negative) Urine Glucose (UA) (Negative) Urine Ketones (Negative) Urine Occult Blood (Negative) Urine Nitrite (Negative) Urine Bilirubin (Negative) Urine Urobilinogen (0.2-1.0) Ur Leukocyte Esterase (Negative) Urine RBC (0-5) /hpf Urine WBC (0-5) /hpf Ur Epithelial Cells (0-5) /hpf Urine Bacteria (FEW) /hpf Urine Mucus (FEW) /hpf Meds: Medications Discontinued Medications Generic Name Dose Route Start Last Admin Trade Name Freq PRN Reason Stop Dose Admin Albuterol/Ipratropium 3 ml 08/26/17 15:46 08/26/17 16:15 Duoneb 3.0-0.5 Mg/3 Ml NEB 08/26/17 15:47 3 ml ONETIME ONE Administration Azithromycin 500 mg 08/27/17 18:01 08/26/17 19:21 Zithromax PO 08/27/17 18:02 500 mg ONETIME ONE Administration Azithromycin Confirm 08/26/17 19:25 08/26/17 20:00 Zithromax Administered 08/26/17 19:26 Not Given Dose 500 mg .ROUTE .STK-MED ONE Benzonatate 200 mg 08/26/17 20:09 08/26/17 20:30 Tessalon Perles PO 08/26/17 20:10 200 mg ONETIME ONE Administration Dexamethasone 10 mg 08/26/17 18:01 08/26/17 19:15 Dexamethasone IVPUSH 08/26/17 18:02 10 mg ONETIME ONE Administration Hydromorphone HCl 0.5 mg 08/26/17 14:16 08/26/17 14:56 Dilaudid IVPUSH 08/26/17 14:17 0.5 mg ONETIME ONE Administration Ceftriaxone Sodium 2 gm/ 100 mls @ 200 mls/hr 08/26/17 18:00 08/26/17 19:15 Sodium Chloride IV 08/26/17 18:29 200 mls/hr ONETIME ONE Administration Ondansetron HCl 4 mg 08/26/17 14:16 08/26/17 14:56 Zofran IVPUSH 08/26/17 14:17 4 mg ONETIME ONE Administration Sodium Chloride 10 ml 08/26/17 14:07 08/26/17 14:57 Saline Flush FLUSH 10 ml ASDIRECTED PRN Administration Keep Vein Open - Radiology Interpretation Free Text/Narrative:: 77-year-old male presents the ED with paroxysmal productive cough for the better part of a week. He claims intermittent fever and chills. Afebrile on initial assessment. Sputum has a yellow tinge to it. Also intermittently bloody today because of a left-sided nosebleed. He is always on oxygen at 4 L/m by nasal cannula. States he hasn't been able to sleep for 2 days as he is unable to lie down due to orthopnea. He has a chronic congestive heart failure as well as chronic severe COPD. Sats are maintained at 97% on 4 L at this time. Plan influenza A and B screen routine labs to include blood cultures 2. BNP is well. He is allergic to codeine and therefore could not given codeine cough syrup to help suppress his cough. Will instead try Dilaudid 0.5 mg IV with Zofran 4 mg IV as a cough suppressant. - Re-Assessments/Exams Free Text/Narrative Re-Assessment/Exam: 08/26/17 15:44 chest x-ray reveals mild to moderate cardiomegaly. There is mild diffuse vascular congestion the lower lobes. Questionable whether there is an early infiltrate in the left lower lobe. ECG shows sinus rhythm at 82/m there are Q waves in V1 to V2 compatible with an old anteroseptal myocardial infarction. There is evidence of left and right atrial hypertrophy is known to have quite severe COPD. QT interval is also mildly prolonged. Abnormal ECG 08/26/17 16:31 Labs reveal a normal white count at 7.90 with 79% neutrophils and no bands. Hemoglobin is 11.1 with hematocrit of 34.7. Platelet count is 149, 000.. PT is 10.7 with an INR 0.98.. Sodium is 140 potassium is 3.8. Toward 103 bicarbonate 31. Anion gap is 9.8. BUNs 17. Creatinine is 1.6. EGFR is 42. Glucose is 1 ED 2. Lactic acid 1.2. Calcium 9.0. Magnesium slightly low at 1.7. Liver function normal. Cardiac markers CK-MB fraction elevated at 6.5. Troponin I however is less than 0.017. C-reactive protein is pending. BNP is 363. Urinalysis is normal. Influenza screen is negative. Patient still has intermittent bleeding from his left naries. 08/26/17 17:45: Patient is coughing much less now. The Dilaudid seemed to do the trick. He is now able to get a deep breath. We will get him a dinner tray as he is not eaten all day. He'll be given Zithromax 500 mg per ora and Rocephin 2 g IV. Also dexamethasone 10 mg IV 1 dose to help relieve some of his upper airway congestion and hoarseness. 08/26/17 18:55: He reports he is feeling much improved. He is therefore willing to try things at home versus coming into the hospital. We are very short of beds at this time at any rate. Will be discharged on Tessalon Perles 200 mg every 8 hours when necessary for cough relief. Also Zithromax 250 mg once daily at suppertime for 6 more days. Advised to follow-up with Dr. Guillermo in clinic if any further problems occur in the next 5 days. Follow-up in 10 days' time. Departure - Departure Time of Disposition: 20:14 Disposition: Home, Self-Care 01 Condition: Fair Clinical Impression: Bronchitis, Acute exacerbation of chronic obstructive pulmonary disease (COPD) - Discharge Information Prescriptions: Azithromycin [Zithromax] 250 mg PO DAILY #6 tablet Benzonatate [Tessalon Perles] 200 mg PO TID PRN #18 cap PRN Reason: cough relief Instructions: Acute Bronchitis Referrals: Joshua Ovalle MD [Primary Care Provider] - Forms: ED Department Discharge Additional Instructions: Evaluation the emergency room today in regards to development of upper respiratory tract infection with bronchitis. Severe paroxysmal cough with exacerbation of your lung disease. You were treated with medications to help suppress your cough in the emergency room with intravenous Dilaudid. He also received inhalational treatment to open upper lung tubes and help you breathe better. Treatment is Tessalon Perles one tablet every 8 hours as needed to help suppress cough. Antibiotic is to be Zithromax 250 mg tablet once daily every day at supper time for the next 6 days. He is to follow-up in the clinic in 3-4 days time if not improved otherwise in 10 days' time. - My Orders Last 24 Hours: My Active Orders 08/26/17 14:06 Chest 1V Frontal [CR] Stat 08/26/17 14:07 EKG Documentation Completion [RC] STAT Oxygen Therapy [RC] ASDIRECTED Peripheral IV Care [RC] . DIRECTED Blood Culture x2 Reflex Set [OM.PC] Stat Peripheral IV Insertion Adult [OM.PC] Stat 08/26/17 14:15 Oxygen Therapy [RC] ASDIRECTED 08/26/17 15:22 CULTURE BLOOD [BC] Stat 08/26/17 15:30 CULTURE BLOOD [BC] Stat 08/26/17 15:46 RT Aerosol Therapy [RC] ASDIRECTED - Assessment/Plan Last 24 Hours: My Active Orders 08/26/17 14:06 Chest 1V Frontal [CR] Stat 08/26/17 14:07 EKG Documentation Completion [RC] STAT Oxygen Therapy [RC] ASDIRECTED Peripheral IV Care [RC] . DIRECTED Blood Culture x2 Reflex Set [OM.PC] Stat Peripheral IV Insertion Adult [OM.PC] Stat 08/26/17 14:15 Oxygen Therapy [RC] ASDIRECTED 08/26/17 15:22 CULTURE BLOOD [BC] Stat 08/26/17 15:30 CULTURE BLOOD [BC] Stat 08/26/17 15:46 RT Aerosol Therapy [RC] ASDIRECTED
[2017-08-26] MEDS ORDERED: Sodium Chloride 0.9% 10 ML Syringe FLUSH PRN (14:07)
[2017-08-26] MEDS ORDERED: HYDROmorphone 0.5 MG/0.5 ML Syringe IVPUSH ONE (14:16)
[2017-08-26] MEDS ORDERED: Ondansetron 4 MG/2 ML SDV IVPUSH ONE (14:16)
[2017-08-26] MEDS ORDERED: Albuterol/Ipratropium 3.0-0.5 MG/3 ML Neb Soln NEB ONE (15:46)
[2017-08-26] MEDS ORDERED: cefTRIAXone 2 GM in Sodium Chloride 0.9% 100 ML IV ONE (18:00)
[2017-08-26] MEDS ORDERED: Dexamethasone 4 MG/ML SDV IVPUSH ONE (18:01)
[2017-08-26] MEDS ORDERED: Azithromycin 250 MG Tab ONE (19:25)
[2017-08-26] MEDS ORDERED: Benzonatate 100 MG Cap PO ONE (20:09)
--- NOTE | 2017-08-27 08:02 | CR ---
Chest: Portable view of the chest was obtained. Comparison: Prior chest x-ray of n1. Slight scarring is seen within both lung bases. Lungs otherwise are clear. Heart size appears within normal limits. Tortuous thoracic aorta is seen. Bony structures are grossly intact. Impression: 1. Nothing acute is appreciated. Diagnostic code #2
[2017-08-27] MEDS ORDERED: Azithromycin 250 MG Tab PO ONE (18:01)
== END 2017-08-26 20:33 | disposition home or self-care (01) ==
LOC: JD.ED 13:43
DX: J44.1 Chronic obstructive pulmonary disease with (acute) exacerbation (principal); J40 Bronchitis, not specified as acute or chronic; E78.00 Pure hypercholesterolemia, unspecified; I10 Essential (primary) hypertension; E11.9 Type 2 diabetes mellitus without complications; Z88.5 Allergy status to narcotic agent; Z88.8 Allergy status to other drugs, medicaments and biological substances; Z79.82 Long term (current) use of aspirin; Z79.4 Long term (current) use of insulin; Z79.899 Other long term (current) drug therapy
CPT/HCPCS: 36415; 71045; 80053; 81001; 82553; 83605; 83735; 83880; 84484; 85025; 85610; 85652; 86140; 87040; 87804; 93005; 94640; 96365; 96375; 99284; A9270; J0696; J1100; J1170; J2405; J7030; J7050; 93010

== ENCOUNTER 2017-08-28 15:54 | Inpatient (IN) | payer OTHER ==
[2017-08-28] MEDS ORDERED: Sodium Chloride 0.9% 10 ML Syringe FLUSH PRN (16:35)
[2017-08-28] MEDS ORDERED: Albuterol/Ipratropium 3.0-0.5 MG/3 ML Neb Soln NEB ONE (16:39)
[2017-08-28] MEDS ORDERED: Levofloxacin/Dextrose 5%-Water 750 MG in Premix Bag 1 BAG IV ONE (16:39)
--- NOTE | 2017-08-28 19:01 | EDM.PDOC ---
ED HPI GENERAL MEDICAL PROBLEM - General Chief Complaint: Respiratory Problem Stated Complaint: S[facility] BY [facility] Time Seen by Provider: 08/28/17 16:08 Source of Information: Reports: Patient, Provider History Limitations: Reports: No Limitations - History of Present Illness INITIAL COMMENTS - FREE TEXT/NARRATIVE: The patient presents with a productive cough, congestion, chest pain and shortness of breath. This all stated a few days ago. The patient was seen here [address] Montes and he was found to have bronchitis and URI. He was put on antibiotics and sent home. He has bad lungs and he is on 3L of oxygen. He had to up that to 4L. He also has been having some chest pain with coughing. He is coughing up yellow/white phlegm with some blood at times. He has no abdominal pain, nausea or vomiting. He is a patient in the [facility] and his nurse was concerned and sent him up to be evaluated. The patient says he is also have urinary urgency. Onset: Gradual Duration: Day(s): Location: Reports: Chest Quality: Reports: Other (tightness) Severity: Mild Improves with: Reports: None Worsens with: Reports: Other (cough) Throat Pain Score (Numeric/FACES): 5 - Related Data Allergies Allergy/AdvReac Type Severity Reaction Status Date / Time codeine Allergy Nausea and Verified 06/17/17 23:20 Vomiting fish oil Allergy Nausea and Verified 06/17/17 23:20 Vomiting glipizide [From Glucotrol] Allergy Other Verified 06/17/17 23:20 ibuprofen Allergy Other Verified 06/17/17 23:20 metformin Allergy Other Verified 06/17/17 23:20 pioglitazone [From Actos] Allergy Other Verified 06/17/17 23:20 Home Meds: Home Meds Aspirin [Adult Low Dose Aspirin EC] 81 mg PO DAILY 03/05/14 [History] Clopidogrel [Plavix] 75 mg PO DAILY 03/05/14 [History] Insulin Glarg,Human.Rec.Analog [Lantus] 42 unit SUBCUT BID 03/05/14 [History] Isosorbide Mononitrate [Imdur] 120 mg PO DAILY 03/05/14 [History] Nitroglycerin [Nitrostat] 0.4 mg SL ASDIRECTED PRN 03/05/14 [History] Polyethylene Glycol 1000 [Polyethylene Glycol] 1 scoop PO ASDIRECTED 03/05/14 [ History] Insulin Aspart [Novolog Flexpen] 17 unit SQ BIDMEALS 04/24/14 [History] Acetaminophen [Acetaminophen Extra Strength] 1,000 mg PO BID PRN 10/15/14 [ History] Insulin Aspart [Novolog Flexpen] 26 unit SQ PCDINNER 10/15/14 [History] Metoprolol Tartrate 25 mg PO BID 10/15/14 [History] Ranolazine [Ranexa] 500 mg PO BID 12/28/14 [History] Fluticasone Propionate [Flonase] 2 spray NS DAILY 03/30/16 [History] Pantoprazole [ProTONIX] 40 mg PO DAILY 03/30/16 [History] Albuterol [Ventolin HFA] 1 puff INH QID PRN 06/30/16 [History] Antacids 1 tab PO ASDIRECTED 06/30/16 [History] Budesonide [Pulmicort] 0.25 mg INH BID 06/30/16 [History] Furosemide [Lasix] 40 mg PO DAILY 06/30/16 [History] Levothyroxine Sodium [Synthroid] 50 mcg PO DAILY 06/30/16 [History] Montelukast [Singulair] 10 mg PO BEDTIME 06/30/16 [History] Naphazoline HCl/Pheniramine [Opcon-A Eye Drops] 1 drop EYEBOTH DAILY 06/30/16 [ History] Ondansetron [Zofran ODT] 4 mg PO Q8H PRN 06/30/16 [History] Rosuvastatin [Crestor] 20 mg PO DAILY 06/30/16 [History] Tamsulosin [Flomax] 0.4 mg PO BEDTIME 06/30/16 [History] Arformoterol [Brovana] 15 mcg NEB BIDRT 06/17/17 [History] Captopril 50 mg PO BID 06/17/17 [History] Dextromethorphan/guaiFENesin [Robitussin DM] 10 ml PO Q12H PRN 06/17/17 [History ] Gabapentin [Neurontin] 300 mg PO BEDTIME 06/17/17 [History] Polyvinyl Alcohol/Povidone [Artificial Tears Drops] 15 ml OP QID PRN 06/17/17 [ History] Umeclidinium [place] [Incruse Ellipta*] 62.5 mcg IH DAILY 06/17/17 [History] lamoTRIgine [Lamotrigine] 50 mg PO BEDTIME 06/17/17 [History] Azithromycin [Zithromax] 250 mg PO DAILY #6 tablet 08/26/17 [Rx] Benzonatate [Tessalon Perles] 200 mg PO TID PRN #18 cap 08/26/17 [Rx] Past Medical History HEENT History: Reports: Impaired Vision Other HEENT History: wears glasses Cardiovascular History: Reports: High Cholesterol, Hypertension, [place] Respiratory History: Reports: COPD, SOB, Other (See Below) Other Respiratory History: emphasema Gastrointestinal History: Reports: GERD Genitourinary History: Reports: None Musculoskeletal History: Reports: Back Pain, Chronic, Osteoarthritis Neurological History: Reports: Headaches, Chronic Other Neuro History: Stroke in 1971 Endocrine/Metabolic History: Reports: Diabetes, Type II Hematologic History: Reports: None Other Hematologic History: hypomagnesemia Oncologic (Cancer) History: Reports: None Dermatologic History: Reports: None Other Dermatologic History: seborrheic keratosis - Infectious Disease History Infectious Disease History: Reports: Influenza, Measles - Past Surgical History Head Surgeries/Procedures: Reports: None Cardiovascular Surgical History: Reports: Coronary Artery Stent GI Surgical History: Reports: Colonoscopy Social & Family History - Family History Family Medical History: Noncontributory - Tobacco Use Smoking Status *Q: Former Smoker Years of Tobacco use: 50 Packs/Tins Daily: 2 Used Tobacco, but Quit: Yes Month Tobacco Last Used: 5 yrs Second Hand Smoke Exposure: No - Caffeine Use Caffeine Use: Reports: Coffee, Soda, Tea - Alcohol Use Days Per Week of Alcohol Use: 0 - Recreational Drug Use Recreational Drug Use: No ED ROS GENERAL - Review of Systems Review Of Systems: See Below Constitutional: Reports: Chills, Malaise, Weakness, Fatigue HEENT: Reports: No Symptoms Respiratory: Reports: Shortness of Breath, Cough Cardiovascular: Reports: Chest Pain Endocrine: Reports: Fatigue GI/Abdominal: Reports: No Symptoms : Reports: No Symptoms Musculoskeletal: Reports: No Symptoms Skin: Reports: No Symptoms ED EXAM, GENERAL - Physical Exam Exam: See Below Exam Limited By: No Limitations General Appearance: Alert, No Apparent Distress Ears: Normal External Exam Nose: Normal Inspection Head: Atraumatic, Normocephalic Neck: Normal Inspection Respiratory/Chest: No Respiratory Distress, Rhonchi Cardiovascular: Regular Rate, Rhythm, No Edema, No Murmur GI/Abdominal: Soft, Non-Tender, No Organomegaly, No Mass Back Exam: Normal Inspection Extremities: Other (Bilateral leg edema) Neurological: Alert, Oriented, No Motor/Sensory Deficits EKG INTERPRETATION EKG Date: 08/28/17 Time: 16:53 Rhythm: NSR Rate (Beats/Min): 83 [place]: LAD-Left [place] Deviation P-Wave: Present QRS: Normal ST-T: Normal QT: Normal EKG Interpretation Comments: Q waves in the anterior leads Course - Vital Signs Last Recorded V/S: Last Vital Signs Temp 97.2 F 08/28/17 16:19 Pulse 86 08/28/17 16:19 Resp 13 08/28/17 16:19 BP 159/73 H 08/28/17 16:19 Pulse Ox 96 08/28/17 17:07 - Orders/Labs/Meds Orders: Active Orders 24 hr Category Date Time Status Cardiac Monitoring [RC] . DIRECTED Care 08/28/17 16:35 Active EKG Documentation Completion [RC] STAT Care 08/28/17 16:36 Active Oxygen Therapy [RC] PRN Care 08/28/17 16:35 Active Peripheral IV Care [RC] . DIRECTED Care 08/28/17 16:36 Active RT Aerosol Therapy [RC] ASDIRECTED Care 08/28/17 16:40 Active Chest 1V Frontal [CR] Stat Exams 08/28/17 16:36 Taken CULTURE BLOOD [BC] Stat Lab 08/28/17 17:00 Received CULTURE BLOOD [BC] Stat Lab 08/28/17 17:45 Received CULTURE SPUTUM + SMEAR [RM] Stat Lab 08/28/17 17:30 Results UA W/MICROSCOPIC [URIN] Stat Lab 08/28/17 17:30 Results Sodium Chloride 0.9% [Saline Flush] Med 08/28/17 16:35 Active 10 ml FLUSH ASDIRECTED PRN Blood Culture x2 Reflex Set [OM.PC] Stat Oth 08/28/17 16:36 Ordered Peripheral IV Insertion Adult [OM.PC] Stat Oth 08/28/17 16:35 Ordered Medication Orders Sodium Chloride (Saline Flush) 10 ml FLUSH ASDIRECTED PRN PRN Reason: Keep Vein Open Last Admin: 08/28/17 17:38 Dose: 10 ml Labs: Laboratory Tests 08/28/17 08/28/17 08/28/17 Range/Units 16:35 17:00 17:30 WBC 5.73 (4.23-9.07) K/mm3 RBC 3.58 L (4.63-6.08) M/mm3 Hgb 10.4 L (13.7-17.5) gm/L Hct 33.5 L (40.1-51.0) % MCV 93.6 H (79.0-92.2) fl MCH 29.1 (25.7-32.2) pg MCHC 31.0 L (32.2-35.5) g/dl RDW Std Deviation 49.5 H (35.1-43.9) fL Plt Count 139 L (163-337) K/mm3 MPV 10.4 (9.4-12.3) fl Neut % (Auto) 82.7 H (34.0-67.9) % Lymph % (Auto) 5.1 L (21.8-53.1) % [place] % (Auto) 11.0 (5.3-12.2) % Eos % (Auto) 0.5 L (0.8-7.0) Baso % (Auto) 0.2 (0.1-1.2) % Neut # (Auto) 4.74 (1.78-5.38) K/mm3 Lymph # (Auto) 0.29 L (1.32-3.57) K/mm3 [place] # (Auto) 0.63 (0.30-0.82) K/mm3 Eos # (Auto) 0.03 L (0.04-0.54) K/mm3 Baso # (Auto) 0.01 (0.01-0.08) K/mm3 Manual Slide Review Abnormal smear Sodium 142 (136-145) mEq/L Potassium 3.6 (3.5-5.1) mEq/L Chloride 103 (98-107) mEq/L Carbon Dioxide 33 H (21-32) mEq/L Anion Gap 9.6 (5-15) BUN 21 H (7-18) mg/dL Creatinine 1.8 H (0.7-1.3) mg/dL Est Cr Clr Drug Dosing 41.08 mL/min Estimated GFR (MDRD) 37 (>60) mL/min BUN/Creatinine Ratio 11.7 L (14-18) Glucose 147 H (83-115) mg/dL Calcium 8.9 (8.5-10.1) mg/dL Total Bilirubin 0.6 (0.2-1.0) mg/dL AST 48 H (15-37) U/L ALT 26 (16-63) U/L Alkaline Phosphatase 62 (46-116) U/L Troponin I 0.057 H* (0.00-0.056) ng/mL Total Protein 6.9 (6.4-8.2) g/dl Albumin 3.3 L (3.4-5.0) g/dl Globulin 3.6 gm/dL Albumin/Globulin Ratio 0.9 L (1-2) Urine Color Yellow (Yellow) Urine Appearance Clear (Clear) Urine pH 6.0 (5.0-8.0) Ur Specific [place] 1.020 (1.005-1.030) Urine Protein Trace H (Negative) Urine Glucose (UA) Trace H (Negative) Urine Ketones Negative (Negative) Urine Occult Blood Trace-lysed H (Negative) Urine Nitrite Negative (Negative) Urine Bilirubin Negative (Negative) Urine Urobilinogen 0.2 (0.2-1.0) Ur Leukocyte Esterase Negative (Negative) Meds: Medications Generic Name Dose Route Start Last Admin Trade Name Diana PRN Reason Stop Dose Admin Sodium Chloride 10 ml 08/28/17 16:35 08/28/17 17:38 Saline Flush FLUSH 10 ml ASDIRECTED PRN Administration Keep Vein Open Discontinued Medications Generic Name Dose Route Start Last Admin Trade Name Diana PRN Reason Stop Dose Admin Albuterol/Ipratropium 3 ml 08/28/17 16:39 08/28/17 17:07 Duoneb 3.0-0.5 Mg/3 Ml NEB 08/28/17 16:40 3 ml ONETIME ONE Administration Levofloxacin/Dextrose 750 mg/ 150 mls @ 100 mls/hr 08/28/17 16:39 08/28/17 17 :37 Premix IV 08/28/17 18:08 100 mls/hr ONETIME ONE Administration - Re-Assessments/Exams Free Text/Narrative Re-Assessment/Exam: 08/28/17 19:02 I ordered oxygen, EKG, CXR, labs, UA, lavaquin 750mg IV and duoneb. His EKG shows NSR with no acute changes. His WBC was normal. His Hgb was a little low at 10.4. His platelets are a little low at 139. His creatinine is elevated to 1.8 from his baseline. His glucose is elevated at 147. His troponin is elevated at 0.057. He was negative 2 days ago. His CXR shows an infiltrate in the right lower lobe. He was influenza negative a couple days ago. I feel he has progressed to pneumonia and he failed outpatient treatment. I feel this is putting a strain on his heart and elevating his troponin. I called Dr Aguilar and she agreed to the admission. Departure - Departure Time of Disposition: 19:10 Disposition: Admitted As Inpatient 66 Condition: Serious Clinical Impression: Hypoxia, Elevated troponin, Chest pain, CKD (chronic kidney disease) stage 3, GFR 30-59 ml/min Pneumonia Qualifiers: Pneumonia type: due to unspecified organism Laterality: right Lung location: lower lobe of lung Qualified Code(s): J18.1 - Lobar pneumonia, unspecified organism - Discharge Information Referrals: Joshua Ovalle MD [Primary Care Provider] - - My Orders Last 24 Hours: My Active Orders 08/28/17 16:35 Cardiac Monitoring [RC] . DIRECTED Oxygen Therapy [RC] PRN Sodium Chloride 0.9% [Saline Flush] 10 ml FLUSH ASDIRECTED PRN Peripheral IV Insertion Adult [OM.PC] Stat 08/28/17 16:36 EKG Documentation Completion [RC] STAT Peripheral IV Care [RC] . DIRECTED Chest 1V Frontal [CR] Stat Blood Culture x2 Reflex Set [OM.PC] Stat 08/28/17 16:40 RT Aerosol Therapy [RC] ASDIRECTED 08/28/17 17:00 CULTURE BLOOD [BC] Stat 08/28/17 17:30 CULTURE SPUTUM + SMEAR [RM] Stat UA W/MICROSCOPIC [URIN] Stat 08/28/17 17:45 CULTURE BLOOD [BC] Stat - Assessment/Plan Last 24 Hours: My Active Orders 08/28/17 16:35 Cardiac Monitoring [RC] . DIRECTED Oxygen Therapy [RC] PRN Sodium Chloride 0.9% [Saline Flush] 10 ml FLUSH ASDIRECTED PRN Peripheral IV Insertion Adult [OM.PC] Stat 08/28/17 16:36 EKG Documentation Completion [RC] STAT Peripheral IV Care [RC] . DIRECTED Chest 1V Frontal [CR] Stat Blood Culture x2 Reflex Set [OM.PC] Stat 08/28/17 16:40 RT Aerosol Therapy [RC] ASDIRECTED 08/28/17 17:00 CULTURE BLOOD [BC] Stat 08/28/17 17:30 CULTURE SPUTUM + SMEAR [RM] Stat UA W/MICROSCOPIC [URIN] Stat 08/28/17 17:45 CULTURE BLOOD [BC] Stat
--- NOTE | 2017-08-28 21:49 | PCM.HP ---
H&P History of Present Illness - General Date of Service: 08/28/17 Admit Problem/Dx: Admission Diagnosis/Problem Admission Diagnosis/Problem Pneumonia Source of Information: Patient, Old Records, Provider, RN History Limitations: Reports: No Limitations - History of Present Illness Initial Comments - Free Text/Narative: Steve Price is a 77 yo male who presented to our ED today with productive cough , congestion, chest pain, and SOB which started a few days prior. He was diagnosed with URI and bronchitis 2 days prior at our ED. Antibiotics were prescribed and he was sent home. He is chronically on 3L of oxygen, however he does titrate this based upon symptoms. On ED arrival he was up to 4L. He reports chest pain and neck pain with coughing. Producing white/yellow phlegm which is sometimes blood tinged. Denies nausea, vomiting, and abdominal pain. He is a patient of the [facility]. He also reports urinary urgency. In the ED he was afebrile with a temp of 97.2. Pulse was 86. Respirations 13. BP 159/73. Pulse ox 96% on 4 L. Labs are obtained: 30 C is normal at 5.73. Hemoglobin is low at 10.4. Hematocrit 33.5. He is slightly macrocytic. Platelet alone 139,000. Neutrophils are elevated at 82.7%. Sodium is 142. Potassium 3.6. Chloride 103. I would ask is high at 33. Anion gap is 9.6. BUN is high at 21. Creatinine 1.8. EGFR 37. Glucose 147. Calcium 8.9. Total bilirubin 0.6. AST is 48. ALT 26. Alk phosphatase 6.2 troponin is elevated at 0.057. Protein 6.9. Albumin is low at 3.3. UA is negative however , trace protein and glucose, and trace lysed occult blood are noted. Twelve- lead EKG is obtained and interpreted by the ED provider as NSR with no acute changes. He was given a DuoNeb and 750 mg Levaquin. He carries a history of impaired vision, HLD, HTN, CA, COPD, emphysema, GERD, chronic lower back pain, osteoarthritis, chronic headaches, CVA, type II DM, hypomagnesemia. He is a former smoker. He is a full code. His PCP is Dr. Ovalle in [place] as part of the [facility]. Throat Pain Score (Numeric/FACES): 5 - Related Data Allergies/Adverse Reactions: Allergies Allergy/AdvReac Type Severity Reaction Status Date / Time codeine Allergy Nausea and Verified 06/17/17 23:20 Vomiting fish oil Allergy Nausea and Verified 06/17/17 23:20 Vomiting glipizide [From Glucotrol] Allergy Other Verified 06/17/17 23:20 ibuprofen Allergy Other Verified 06/17/17 23:20 metformin Allergy Other Verified 06/17/17 23:20 pioglitazone [From Actos] Allergy Other Verified 06/17/17 23:20 Home Medications: Home Meds Aspirin [Adult Low Dose Aspirin EC] 81 mg PO DAILY 03/05/14 [History] Clopidogrel [Plavix] 75 mg PO DAILY 03/05/14 [History] Isosorbide Mononitrate [Imdur] 120 mg PO DAILY 03/05/14 [History] Nitroglycerin [Nitrostat] 0.4 mg SL ASDIRECTED PRN 03/05/14 [History] Polyethylene Glycol 1000 [Polyethylene Glycol] 1 scoop PO ASDIRECTED 03/05/14 [ History] Insulin Aspart [Novolog Flexpen] 17 unit SQ 04/24/14 [History] Acetaminophen [Acetaminophen Extra Strength] 1,000 mg PO BID PRN 10/15/14 [ History] Insulin Aspart [Novolog Flexpen] 26 unit SQ PCDINNER 10/15/14 [History] Metoprolol Tartrate 25 mg PO BID 10/15/14 [History] Ranolazine [Ranexa] 500 mg PO BID 12/28/14 [History] Fluticasone Propionate [Flonase] 2 spray NS DAILY 03/30/16 [History] Pantoprazole [ProTONIX] 40 mg PO DAILY 03/30/16 [History] Albuterol [Ventolin HFA] 1 puff INH QID PRN 06/30/16 [History] Antacids 1 tab PO ASDIRECTED 06/30/16 [History] Budesonide [Pulmicort] 0.25 mg INH BID 06/30/16 [History] Furosemide [Lasix] 40 mg PO DAILY 06/30/16 [History] Levothyroxine Sodium [Synthroid] 50 mcg PO DAILY 06/30/16 [History] Montelukast [Singulair] 10 mg PO BEDTIME 06/30/16 [History] Naphazoline HCl/Pheniramine [Opcon-A Eye Drops] 1 drop EYEBOTH DAILY 06/30/16 [ History] Ondansetron [Zofran ODT] 4 mg PO Q8H PRN 06/30/16 [History] Rosuvastatin [Crestor] 20 mg PO DAILY 06/30/16 [History] Tamsulosin [Flomax] 0.4 mg PO BEDTIME 06/30/16 [History] Arformoterol [Brovana] 15 mcg NEB BIDRT 06/17/17 [History] Captopril 50 mg PO BID 06/17/17 [History] Dextromethorphan/guaiFENesin [Robitussin DM] 10 ml PO Q12H PRN 06/17/17 [History ] Gabapentin [Neurontin] 300 mg PO BEDTIME 06/17/17 [History] Polyvinyl Alcohol/Povidone [Artificial Tears Drops] 15 ml OP QID PRN 06/17/17 [ History] Umeclidinium [place] [Incruse Ellipta*] 62.5 mcg IH DAILY 06/17/17 [History] lamoTRIgine [Lamotrigine] 50 mg PO BEDTIME 06/17/17 [History] Azithromycin [Zithromax] 250 mg PO DAILY #6 tablet 08/26/17 [Rx] Benzonatate [Tessalon Perles] 200 mg PO TID PRN #18 cap 08/26/17 [Rx] Apixaban [Eliquis] 5 mg PO BID 08/28/17 [History] Cyanocobalamin (Vitamin B-12) [Cyanocobalamin Injection] 1 injection IM Q30D 11/10 [History] Insulin Glargine,Hum.Rec.Anlog [Basaglar Kwikpen U-100] 42 units SQ BID [History] Mineral Oil/Petrolatum Oint [Lacri-Lube S.O.P Oint] 3.5 gm EYEBOTH BEDTIME 08/28 [History] Past Medical History HEENT History: Reports: Impaired Vision Other HEENT History: wears glasses Cardiovascular History: Reports: High Cholesterol, Hypertension, CA Respiratory History: Reports: COPD, SOB, Other (See Below) Other Respiratory History: emphasema Gastrointestinal History: Reports: GERD Genitourinary History: Reports: None Musculoskeletal History: Reports: Back Pain, Chronic, Osteoarthritis Neurological History: Reports: Headaches, Chronic Other Neuro History: Stroke in 1971 Endocrine/Metabolic History: Reports: Diabetes, Type II Hematologic History: Reports: None Other Hematologic History: hypomagnesemia Oncologic (Cancer) History: Reports: None Dermatologic History: Reports: None Other Dermatologic History: seborrheic keratosis - Infectious Disease History Infectious Disease History: Reports: Influenza, Measles - Past Surgical History Head Surgeries/Procedures: Reports: None Cardiovascular Surgical History: Reports: Coronary Artery Stent GI Surgical History: Reports: Colonoscopy Social & Family History - Family History Family Medical History: Noncontributory - Tobacco Use Smoking Status *Q: Former Smoker Years of Tobacco use: 50 Packs/Tins Daily: 2 Used Tobacco, but Quit: Yes Month Tobacco Last Used: 5 yrs Second Hand Smoke Exposure: No - Caffeine Use Caffeine Use: Reports: Coffee, Soda, Tea - Alcohol Use Days Per Week of Alcohol Use: 0 - Recreational Drug Use Recreational Drug Use: No H&P Review of Systems - Review of Systems: Review Of Systems: See Below General: Reports: Chills, Malaise, Weakness, Fatigue, Decreased Appetite. Denies: Fever, Night Sweats, Diaphoresis HEENT: Reports: No Symptoms. Denies: Ear Pain, Eye Pain, Headaches, Rhinitis, Post Nasal Drip, Sinus Congestion, Sore Throat Pulmonary: Reports: Shortness of Breath, Cough, Sputum. Denies: Wheezing Cardiovascular: Reports: Chest Pain, Dyspnea on Exertion (chronic ), Edema ( chronic ), Blood Pressure Problem. Denies: Palpitations, Lightheadedness, Syncope Gastrointestinal: Reports: No Symptoms. Denies: Abdominal Pain, Constipation, Diarrhea, Nausea, Stool Incontinence, Vomiting Genitourinary: Denies: Dysuria, Frequency, Burning, Pain, Urgency Musculoskeletal: Reports: Neck Pain (when coughing ), Back Pain (chronic ), Other (Chest pain when coughing ) Skin: Reports: No Symptoms Psychiatric: Reports: No Symptoms Neurological: Reports: No Symptoms Hematologic/Lymphatic: Reports: No Symptoms Immunologic: Reports: No Symptoms Exam - Exam Exam: See Below - Vital Signs Vital Signs: Last Vital Signs Temp 97.2 F 08/28/17 16:19 Pulse 86 08/28/17 16:19 Resp 13 08/28/17 16:19 BP 159/73 H 08/28/17 16:19 Pulse Ox 96 08/28/17 17:07 Weight: 251 lb - Exam Quality Assessment: Supplemental Oxygen General: Alert, Oriented, Cooperative. No: Mild Distress HEENT: Conjunctiva Clear, EACs Clear, EOMI, Hearing Intact, Mucosa Moist & [place] , Nares Patent, Normal Nasal Septum, Posterior Pharynx Clear, PERRLA Neck: Supple, Trachea Midline. No: JVD, Thyromegaly Lungs: Normal Respiratory Effort, Decreased Breath Sounds, Rhonchi, Wheezing Cardiovascular: Regular Rate, Regular Rhythm GI/Abdominal Exam: Normal Bowel Sounds, Soft, Non-Tender, No Organomegaly, No Distention, No Abnormal Bruit, No Mass, Pelvis Stable (Male) Exam: Deferred Rectal (Males) Exam: Deferred Back Exam: Normal Inspection, Full Range of Motion Extremities: Normal Range of Motion, Non-Tender, Normal Capillary Refill, Pedal Edema (1-2+ ) Peripheral Pulses: 2+: Radial (L), Radial (R), Posterior Tibial (L), Posterior Tibial (R), Dorsalis Pedis (L), Dorsalis Pedis (R) Skin: Warm, Dry, Intact Neurological: Cranial Nerves Intact (Grossly) Neuro Extensive - Mental Status: Alert, Oriented x3, Normal Mood/Affect, Normal Cognition Neuro Extensive - Motor, Sensory, Reflexes: CN II-XII Intact (Grossly) Psychiatric: Alert, Normal Affect, Normal Mood - Patient Data Result Diagrams: 08/28/17 17:00 08/28/17 16:35 *Q Meaningful Use (ADM) - VTE *Q VTE Criteria *Q: - Stroke *Q Stroke Criteria *Q: - AMI *Q AMI Criteria *Q: - Problem List (1) Acute exacerbation of chronic obstructive pulmonary disease (COPD) SNOMED Code(s): 738161912 ICD Code: J44.1 - CHRONIC OBSTRUCTIVE PULMONARY DISEASE W (ACUTE) EXACERBATION Status: Acute Priority: High Current Visit: Yes (2) Pneumonia SNOMED Code(s): 648458621 ICD Code: J18.9 - PNEUMONIA, UNSPECIFIED ORGANISM Status: Acute Priority : High Current Visit: Yes Qualifiers: Pneumonia type: due to unspecified organism Laterality: right Lung location: lower lobe of lung Qualified Code(s): J18.1 - Lobar pneumonia, unspecified organism (3) Chest pain SNOMED Code(s): 80242476 ICD Code: R07.9 - CHEST PAIN, UNSPECIFIED Status: Acute Priority: Medium Current Visit: Yes (4) Elevated troponin SNOMED Code(s): 106423142, 615293458 ICD Code: R74.8 - ABNORMAL LEVELS OF OTHER SERUM ENZYMES Status: Acute Priority: Medium Current Visit: Yes (5) Hypoxia SNOMED Code(s): 061408910 ICD Code: R09.02 - HYPOXEMIA Status: Acute Priority: High Current Visit : Yes (6) CKD (chronic kidney disease) stage 3, GFR 30-59 ml/min SNOMED Code(s): 211794899 ICD Code: N18.3 - CHRONIC KIDNEY DISEASE, STAGE 3 (MODERATE) Status: Chronic Priority: Medium Current Visit: Yes Problem List Initiated/Reviewed/Updated: Yes Orders Last 24hrs: Active Orders 24 hr Category Date Time Status Admission Status [Patient Status] [ADT] Routine ADT 08/28/17 20:29 Active Medication Orders Sodium Chloride (Saline Flush) 10 ml FLUSH ASDIRECTED PRN PRN Reason: Keep Vein Open Last Admin: 08/28/17 17:38 Dose: 10 ml Assessment/Plan Comment:: I/P: Pneumonia -Questionable -Productive cough, shortness of breath, Increased O2 demand, but afebrile -In ED 2 days prior and diagnosed with Bronchitis/URI - antibiotic given -Appears to have infiltrate in RLL - formal radiology read pending -Sputum culture - pending -Given 750mg levaquin in ED - switch to Rocephin -RT/IS/Acapella -Duo-Nebs -WBC 5.73 -CRP - Ordered -Tessalon Perles and Robitussin for cough -O2 as needed - titrate and attempt to wean to baseline COPD exacerbation -Chronically on 3L O2 - titrates as needed -SOB for last few days -Rocephin -Solu-medrol -Pulmicort -Duo-nebs -RT to evaluate and treat -Home respiratory medications as ordered -O2 as needed Chest pain -Sternum and up into neck when coughing -Worsens with palpitation -Tessalon Perles and Robitussin to suppress cough -Pain medications as needed Elevated troponin -Hx/o CA with stent placement -Troponin 0.057 in ED - Repeat ordered in AM -12-lead obtained in ED shows NSR with no acute changes - repeat in AM -CKMB ordered -Has had episodes of elevated troponin in the past -Likely elevated due to heart strain -Continue to monitor Chronic: Impaired vision CKD Stage 3 - appears to be around baseline; Monitor HLD HTN - stable; PRN meds as ordered Hx/o CA with stent placement COPD - chronically O2 dependant Emphysema GERD Chronic back pain Osteoarthritis Headaches Type II DM - LA insulin, sliding scale insulin, Glucose checks QID AC and Bedtime Hypomagnesemia - Magnesium level ordered in AM Plan: Admit to medical floor with telemetry CM for discharge planning PT/OT Routine AM labs Other orders as indicated above Continue home medications as indicated DVT/PE prophylaxis: Home Plavix and JAMES Hose Code Status: Full Code; His PCP is Dr. Ovalle with [facility].
[2017-08-28] MEDS ORDERED: Ondansetron 4 MG/2 ML SDV IV PRN (22:53)
[2017-08-28] MEDS ORDERED: Docusate Sodium 100 MG Cap PO PRN (22:53)
[2017-08-28] MEDS ORDERED: Temazepam 7.5 MG Cap PO PRN (22:53)
[2017-08-28] MEDS ORDERED: Bisacodyl 5 MG Tab PO PRN (22:53)
[2017-08-28] MEDS ORDERED: Ondansetron 4 MG Tab.DIS PO PRN (22:53)
[2017-08-28] MEDS ORDERED: Morphine 2 MG/ML Syringe IVPUSH PRN (23:03)
[2017-08-28] MEDS ORDERED: 50% Dextrose in Water 50 ML Syringe IVPUSH PRN (23:07)
[2017-08-28] MEDS ORDERED: Metoprolol Tartrate 5 MG/5 ML SDV IVPUSH PRN (23:19)
[2017-08-29] MEDS ORDERED: Pneumococcal Polyvalent-23 Vaccine 0.5 ML SDV IM ONE (01:03)
[2017-08-29] MEDS: methylPREDNISolone Sodium Succinate 125 MG/2 ML SDV IVPUSH SCH ×4 (01:58→22:30)
[2017-08-29] MEDS: Albuterol/Ipratropium 3.0-0.5 MG/3 ML Neb Soln NEB PRN ×2 (05:14→20:31)
[2017-08-29] MEDS: Budesonide 0.5 MG/2 ML Neb Susp NEB SCH ×2 (05:14→20:31)
[2017-08-29] MEDS: hydrALAZINE 20 MG/ML SDV IVPUSH PRN (05:31)
[2017-08-29] MEDS ORDERED: Budesonide 0.25 MG/2 ML Neb Susp NEB SCH (06:00)
[2017-08-29] MEDS: Acetaminophen 325 MG Tab PO PRN ×2 (06:20→15:54)
[2017-08-29] MEDS: guaiFENesin/Dextromethorphan 100-10 MG/5 ML Soln 5 ML Cup PO PRN ×2 (06:22→22:27)
[2017-08-29] MEDS: Insulin Aspart 100 Units/ML 3 ML Pen SUBCUT SCH ×3 (07:43→18:31)
[2017-08-29] MEDS: Saccharomyces Boulardii (Probiotic) 250 MG Cap PO SCH ×2 (08:51→21:18)
[2017-08-29] MEDS: Furosemide 40 MG Tab PO SCH (08:51)
[2017-08-29] MEDS: Metoprolol Tartrate 50 MG Tab PO SCH ×2 (08:51→21:15)
[2017-08-29] MEDS: Isosorbide Mononitrate 60 MG Tab.ER PO SCH (08:51)
[2017-08-29] MEDS: Doxycycline 100 MG in Sodium Chloride 0.9% 100 ML IV SCH ×2 (08:52→21:23)
[2017-08-29] MEDS: Benzonatate 100 MG Cap PO SCH ×3 (08:52→21:17)
[2017-08-29] MEDS ORDERED: Benzonatate 100 MG Cap PO SCH (09:00)
[2017-08-29] MEDS ORDERED: Metoprolol Tartrate 50 MG Tab PO SCH (09:00)
--- NOTE | 2017-08-29 09:18 | CR ---
Chest: Portable view of the chest was obtained. Comparison: Prior chest x-ray of 08/26/17. Heart size is normal. Tortuous thoracic aorta is seen. Slight scarring is noted within both lung bases. Lungs otherwise are clear. Bony structures are grossly intact. Impression: 1. Incidental findings. Nothing acute is appreciated. Diagnostic code #2
[2017-08-29] MEDS ORDERED: Insulin Aspart 100 Units/ML 3 ML Pen SUBCUT SCH (11:00)
[2017-08-29] MEDS ORDERED: Benzonatate 100 MG Cap PO PRN (15:15)
[2017-08-29] MEDS ORDERED: guaiFENesin/Dextromethorphan 100-10 MG/5 ML Soln 5 ML Cup PO PRN (15:15)
--- NOTE | 2017-08-29 16:05 | PCM.PN ---
- General Info Date of Service: 08/29/17 Functional Status: Reports: Tolerating Diet, Urinating - Review of Systems General: Reports: No Symptoms HEENT: Reports: No Symptoms Pulmonary: Reports: Cough Cardiovascular: Reports: No Symptoms Gastrointestinal: Reports: No Symptoms Genitourinary: Reports: No Symptoms Musculoskeletal: Reports: No Symptoms Skin: Reports: No Symptoms Neurological: Reports: No Symptoms Psychiatric: Reports: No Symptoms - Patient Data Vitals - Most Recent: Last Vital Signs Temp 35.7 C 08/29/17 15:14 Pulse 62 08/29/17 15:14 Resp 17 08/29/17 15:14 BP 151/87 H 08/29/17 15:40 Pulse Ox 95 08/29/17 15:14 Weight - Most Recent: 66.814 kg I&O - Last 24 Hours: Intake & Output 08/29/17 08/29/17 08/29/17 06:59 14:59 22:59 Intake Total 200 200 Output Total 275 Balance -75 200 Lab Results Last 24 Hours: Laboratory Results - last 24 hr 08/28/17 08/29/17 08/29/17 Range/Units 23:04 06:18 08:33 WBC 4.91 (4.23-9.07) K/mm3 RBC 4.02 L (4.63-6.08) M/mm3 Hgb 11.6 L (13.7-17.5) gm/L Hct 37.2 L (40.1-51.0) % MCV 92.5 H (79.0-92.2) fl MCH 28.9 (25.7-32.2) pg MCHC 31.2 L (32.2-35.5) g/dl RDW Std Deviation 48.4 H (35.1-43.9) fL Plt Count 130 L (163-337) K/mm3 MPV 10.6 (9.4-12.3) fl Neut % (Auto) 91.5 H (34.0-67.9) % Lymph % (Auto) 4.1 L (21.8-53.1) % [place] % (Auto) 2.6 L (5.3-12.2) % Eos % (Auto) 0.2 L (0.8-7.0) Baso % (Auto) 0.0 L (0.1-1.2) % Neut # (Auto) 4.49 (1.78-5.38) K/mm3 Lymph # (Auto) 0.20 L (1.32-3.57) K/mm3 [place] # (Auto) 0.13 L (0.30-0.82) K/mm3 Eos # (Auto) 0.01 L (0.04-0.54) K/mm3 Baso # (Auto) 0.00 L (0.01-0.08) K/mm3 Manual Slide Review Abnormal smear Sodium (136-145) mEq/L Potassium (3.5-5.1) mEq/L Chloride (98-107) mEq/L Carbon Dioxide (21-32) mEq/L Anion Gap (5-15) BUN (7-18) mg/dL Creatinine (0.7-1.3) mg/dL Est Cr Clr Drug Dosing mL/min Estimated GFR (MDRD) (>60) mL/min BUN/Creatinine Ratio (14-18) Glucose (83-115) mg/dL POC Glucose 151 H 296 H (83-110) mg/dL Calcium (8.5-10.1) mg/dL CK-MB (CK-2) (0-3.6) ng/ml Troponin I (0.00-0.056) ng/mL C-Reactive Protein (<1.0) mg/dL NT-Pro-B Natriuret Pep (0-450) pg/mL Mycoplasma pneumon IgM (NEGATIVE) 08/29/17 08/29/17 Range/Units 08:33 11:04 WBC (4.23-9.07) K/mm3 RBC (4.63-6.08) M/mm3 Hgb (13.7-17.5) gm/L Hct (40.1-51.0) % MCV (79.0-92.2) fl MCH (25.7-32.2) pg MCHC (32.2-35.5) g/dl RDW Std Deviation (35.1-43.9) fL Plt Count (163-337) K/mm3 MPV (9.4-12.3) fl Neut % (Auto) (34.0-67.9) % Lymph % (Auto) (21.8-53.1) % [place] % (Auto) (5.3-12.2) % Eos % (Auto) (0.8-7.0) Baso % (Auto) (0.1-1.2) % Neut # (Auto) (1.78-5.38) K/mm3 Lymph # (Auto) (1.32-3.57) K/mm3 [place] # (Auto) (0.30-0.82) K/mm3 Eos # (Auto) (0.04-0.54) K/mm3 Baso # (Auto) (0.01-0.08) K/mm3 Manual Slide Review Sodium 137 (136-145) mEq/L Potassium 3.8 (3.5-5.1) mEq/L Chloride 98 (98-107) mEq/L Carbon Dioxide 28 (21-32) mEq/L Anion Gap 14.8 (5-15) BUN 21 H (7-18) mg/dL Creatinine 1.6 H (0.7-1.3) mg/dL Est Cr Clr Drug Dosing 36.54 mL/min Estimated GFR (MDRD) 42 (>60) mL/min BUN/Creatinine Ratio 13.1 L (14-18) Glucose 341 H 428 H (83-115) mg/dL POC Glucose (83-110) mg/dL Calcium 8.8 (8.5-10.1) mg/dL CK-MB (CK-2) 4.4 H (0-3.6) ng/ml Troponin I 0.043 (0.00-0.056) ng/mL C-Reactive Protein 3.2 H* (<1.0) mg/dL NT-Pro-B Natriuret Pep 681 H (0-450) pg/mL Mycoplasma pneumon IgM Negative (NEGATIVE) Med Orders - Current: Current Medications Acetaminophen (Tylenol) 650 mg PO Q4H PRN PRN Reason: Pain (Mild 1-3)/fever Last Admin: 08/29/17 15:54 Dose: 650 mg Albuterol/Ipratropium (Duoneb 3.0-0.5 Mg/3 Ml) 3 ml NEB Q4H PRN PRN Reason: Shortness Of Breath/wheezing Last Admin: 08/29/17 05:14 Dose: 3 ml Apixaban (Eliquis) 5 mg PO BID [facility] Artificial Tears (Artificial Tears) 0 gm EYEBOTH BEDTIME [facility] Aspirin (Halfprin) 81 mg PO DAILY [facility] Benzonatate (Tessalon Perles) 200 mg PO TID [facility] Last Admin: 08/29/17 15:40 Dose: 200 mg Benzonatate (Tessalon Perles) 200 mg PO TID PRN PRN Reason: cough relief Bisacodyl (Dulcolax) 5 mg PO DAILY PRN PRN Reason: Constipation Budesonide (Pulmicort) 0.5 mg NEB BIDRT [facility] Last Admin: 08/29/17 05:14 Dose: 0.5 mg Budesonide (Pulmicort) 0.25 mg INH BID [facility] Captopril (Capoten) 50 mg PO BIDAC [facility] Last Admin: 08/29/17 15:40 Dose: 50 mg Clopidogrel Bisulfate (Plavix) 75 mg PO DAILY [facility] Dextrose/Water (Dextrose 50% In Water) 50 ml IVPUSH ASDIRECTED PRN PRN Reason: Hypoglycemia Docusate Sodium (Colace) 100 mg PO BID PRN PRN Reason: Constipation Flunisolide (Nasalide Nasal [place]) 0 ml NASBOTH DAILY [facility] Furosemide (Lasix) 40 mg PO DAILY [facility] Last Admin: 08/29/17 08:51 Dose: 40 mg Gabapentin (Neurontin) 300 mg PO BEDTIME [facility] Guaifenesin/Phenylephrine HCl (Robitussin Dm) 10 ml PO Q4H PRN PRN Reason: Cough Last Admin: 08/29/17 06:22 Dose: 10 ml Guaifenesin/Phenylephrine HCl (Robitussin Dm) 10 ml PO Q12H PRN PRN Reason: Cough Hydralazine HCl (Apresoline) 10 mg IVPUSH Q6H PRN PRN Reason: Hypertension Last Admin: 08/29/17 05:31 Dose: 10 mg Doxycycline Hyclate 100 mg/ (Sodium Chloride) 100 mls @ 100 mls/hr IV Q12HR [facility] Last Admin: 08/29/17 08:52 Dose: 100 mls/hr Insulin Aspart (Novolog) 17 unit SUBCUT 07,11 [facility] Insulin Aspart (Novolog) 26 unit SUBCUT DAILY@1700 [facility] Insulin Detemir (Levemir) 42 unit SUBCUT BID [facility] Isosorbide Mononitrate (Imdur) 120 mg PO DAILY [facility] Last Admin: 08/29/17 08:51 Dose: 120 mg Lamotrigine (Lamotrigine) 50 mg PO BEDTIME [facility] Levothyroxine Sodium (Synthroid) 50 mcg PO DAILY [facility] Methylprednisolone Sodium Succinate (Solu-Medrol) 125 mg IVPUSH Q8H [facility] Last Admin: 08/29/17 15:40 Dose: 125 mg Metoprolol Tartrate (Lopressor) 5 mg IVPUSH Q4H PRN PRN Reason: Tachycardia Metoprolol Tartrate (Lopressor) 50 mg PO BID [facility] Last Admin: 08/29/17 08:51 Dose: 50 mg Montelukast Sodium (Singulair) 10 mg PO BEDTIME [facility] Morphine Sulfate (Morphine) 2 mg IVPUSH Q2H PRN PRN Reason: Pain (severe 7-10) Stop: 08/29/17 23:03 Non-Formulary Medication (Umeclidinium [place]) 62.5 mcg IH DAILY [facility] Ondansetron HCl (Zofran Odt) 4 mg PO Q6H PRN PRN Reason: nausea, able to take PO Ondansetron HCl (Zofran) 4 mg IV Q6H PRN PRN Reason: Nausea/Vomiting Pantoprazole Sodium (Protonix) 40 mg PO DAILY [facility] Polyethylene Glycol (Miralax) 17 gm PO DAILY PRN PRN Reason: Constipation Ranolazine (Ranexa) 500 mg PO BID [facility] Rosuvastatin Calcium (Crestor) 20 mg PO DAILY [facility] Saccharomyces Boulardii (Florastor) 250 mg PO BID [facility] Last Admin: 08/29/17 08:51 Dose: 250 mg Senna/Docusate Sodium (Senna Plus) 1 tab PO BID PRN PRN Reason: Constipation Sodium Chloride (Saline Flush) 10 ml FLUSH ASDIRECTED PRN PRN Reason: Keep Vein Open Last Admin: 08/28/17 17:38 Dose: 10 ml Tamsulosin HCl (Flomax) 0.4 mg PO BEDTIME [facility] Temazepam (Restoril) 7.5 mg PO BEDTIME PRN PRN Reason: Sleep Discontinued Medications Albuterol/Ipratropium (Duoneb 3.0-0.5 Mg/3 Ml) 3 ml NEB ONETIME ONE Stop: 08/28/17 16:40 Last Admin: 08/28/17 17:07 Dose: 3 ml Benzonatate (Tessalon Perles) 100 mg PO QID [facility] Budesonide (Pulmicort) 0.25 mg NEB BIDRT [facility] Levofloxacin/Dextrose 750 mg/ (Premix) 150 mls @ 100 mls/hr IV ONETIME ONE Stop: 08/28/17 18:08 Last Admin: 08/28/17 17:37 Dose: 100 mls/hr Insulin Aspart (Novolog) 0 unit SUBCUT QIDACANDBED [facility] PRN Reason: Protocol Last Admin: 08/29/17 12:25 Dose: Not Given Insulin Aspart (Novolog) 0 unit SUBCUT QIDACANDBED [facility] PRN Reason: Protocol Last Admin: 08/29/17 12:29 Dose: 10 units Metoprolol Tartrate (Lopressor) 25 mg PO BID [facility] Pneumococcal Polyvalent Vaccine (Pneumovax 23) 0.5 ml IM .ONCE ONE Stop: 08/29/17 01:04 - Exam Quality Assessment: Supplemental Oxygen, DVT Prophylaxis General: Alert, Oriented, Cooperative, No Acute Distress HEENT: Pupils Equal, Pupils Reactive, EOMI Neck: Supple, Trachea Midline, No JVD Lungs: Normal Respiratory Effort, Decreased Breath Sounds Cardiovascular: Regular Rate, Regular Rhythm GI/Abdominal Exam: Normal Bowel Sounds, Soft, Non-Tender, No Organomegaly, No Distention (Male) Exam: Deferred Back Exam: Normal Inspection Extremities: Normal Inspection Skin: Warm Neurological: No New Focal Deficit, Normal Speech Psy/Mental Status: Alert, Normal Affect, Normal Mood - Problem List Review Problem List Initiated/Reviewed/Updated: Yes - Plan Plan:: I/P: Pneumonia -Questionable -Productive cough, shortness of breath, Increased O2 demand, but afebrile -In ED 2 days prior and diagnosed with Bronchitis/URI - antibiotic given -Appears to have infiltrate in RLL - formal radiology read pending -Sputum culture - pending -Given 750mg levaquin in ED - switch to Rocephin -RT/IS/Acapella -Duo-Nebs -WBC 5.73 -CRP - Ordered -Tessalon Perles and Robitussin for cough -O2 as needed - titrate and attempt to wean to baseline COPD exacerbation -Chronically on 3L O2 - titrates as needed -SOB for last few days -Rocephin -Solu-medrol -Pulmicort -Duo-nebs -RT to evaluate and treat -Home respiratory medications as ordered -O2 as needed Chest pain -Sternum and up into neck when coughing -Worsens with palpitation -Tessalon Perles and Robitussin to suppress cough -Pain medications as needed Elevated troponin -Hx/o MD with stent placement -Troponin 0.057 in ED - Repeat ordered in AM -12-lead obtained in ED shows NSR with no acute changes - repeat in AM -CKMB ordered -Has had episodes of elevated troponin in the past -Likely elevated due to heart strain -Continue to monitor Chronic: Impaired vision CKD Stage 3 - appears to be around baseline; Monitor HLD HTN - stable; PRN meds as ordered Hx/o MD with stent placement COPD - chronically O2 dependant Emphysema GERD Chronic back pain Osteoarthritis Headaches Type II DM - LA insulin, sliding scale insulin, Glucose checks QID AC and Bedtime Hypomagnesemia - Magnesium level ordered in AM Plan: Admit to medical floor with telemetry CM for discharge planning PT/OT Routine AM labs Other orders as indicated above Continue home medications as indicated DVT/PE prophylaxis: Home Plavix and JAMES Hose Code Status: Full Code; His PCP is Dr. Ovalle [facility].
[2017-08-29] MEDS ORDERED: Budesonide 0.25 MG/2 ML Neb Susp INH SCH (21:00)
[2017-08-29] MEDS: lamoTRIgine 100 MG Tab PO SCH (21:12)
[2017-08-29] MEDS: Gabapentin 300 MG Cap PO SCH (21:14)
[2017-08-29] MEDS: Apixaban 5 MG Tab PO SCH (21:16)
[2017-08-29] MEDS: Tamsulosin 0.4 MG Cap.ER PO SCH (21:16)
[2017-08-29] MEDS: Montelukast 10 MG Tab PO SCH (21:18)
[2017-08-29] MEDS: Lanolin/Mineral Oil/Petrolatum Ophth Oint 3.5 GM Tube EYEBOTH SCH (21:19)
[2017-08-29] MEDS: Insulin Detemir 100 Units/ML 3 ML Pen SUBCUT SCH (22:21)
[2017-08-29] MEDS ORDERED: Insulin Aspart 100 Units/ML 3 ML Pen SUBCUT ONE (23:00)
[2017-08-30] MEDS: Albuterol/Ipratropium 3.0-0.5 MG/3 ML Neb Soln NEB PRN ×2 (05:25→20:51)
[2017-08-30] MEDS: Budesonide 0.5 MG/2 ML Neb Susp NEB SCH ×2 (05:25→20:51)
[2017-08-30] MEDS: methylPREDNISolone Sodium Succinate 125 MG/2 ML SDV IVPUSH SCH (06:00)
[2017-08-30] MEDS: Insulin Aspart 100 Units/ML 3 ML Pen SUBCUT SCH ×7 (06:38→21:18)
--- NOTE | 2017-08-30 09:20 | CR ---
Chest: Two views of the chest were obtained. Comparison: Prior chest x-ray of 08/28/17. Heart size is normal. Tortuous thoracic aorta is seen. Slight parenchymal densities within both lung bases are seen which are felt to represent scarring. Nothing acute is seen within the lungs. Bony structures appear within normal limits for the patient's age. Impression: 1. Incidental findings. Nothing acute is seen. Diagnostic code #2
[2017-08-30] MEDS: Furosemide 40 MG Tab PO SCH (10:16)
[2017-08-30] MEDS: Levothyroxine 50 MCG Tab PO SCH (10:17)
[2017-08-30] MEDS: Metoprolol Tartrate 50 MG Tab PO SCH ×2 (10:17→21:13)
[2017-08-30] MEDS: Pantoprazole 40 MG Tab.CR PO SCH (10:17)
[2017-08-30] MEDS: Saccharomyces Boulardii (Probiotic) 250 MG Cap PO SCH ×2 (10:17→21:11)
[2017-08-30] MEDS: Clopidogrel 75 MG Tab PO SCH (10:17)
[2017-08-30] MEDS: Aspirin 81 MG Tab.EC PO SCH (10:18)
[2017-08-30] MEDS: Apixaban 5 MG Tab PO SCH ×2 (10:18→21:15)
[2017-08-30] MEDS: Rosuvastatin 10 MG Tab PO SCH (10:18)
[2017-08-30] MEDS: Insulin Detemir 100 Units/ML 3 ML Pen SUBCUT SCH ×2 (10:19→21:16)
[2017-08-30] MEDS: Isosorbide Mononitrate 60 MG Tab.ER PO SCH (10:19)
[2017-08-30] MEDS: Benzonatate 100 MG Cap PO SCH ×3 (10:20→21:16)
[2017-08-30] MEDS: Doxycycline 100 MG in Sodium Chloride 0.9% 100 ML IV SCH (10:28)
[2017-08-30] MEDS ORDERED: methylPREDNISolone Sodium Succinate 40 MG/1 ML SDV IVPUSH SCH (10:35)
[2017-08-30] MEDS: Polyethylene Glycol 3350 Powder 17 GM Packet PO PRN (11:38)
[2017-08-30] MEDS: UMECLIDINIUM BROMIDE 62.5 MCG IH SCH (11:39)
[2017-08-30] MEDS: methylPREDNISolone Sodium Succinate 40 MG/1 ML SDV IVPUSH SCH ×2 (14:35→22:23)
--- NOTE | 2017-08-30 17:46 | PCM.PN ---
- General Info Date of Service: 08/30/17 Functional Status: Reports: Pain Controlled, Tolerating Diet, Ambulating - Review of Systems General: Reports: Weakness HEENT: Reports: No Symptoms Pulmonary: Reports: No Symptoms Cardiovascular: Reports: No Symptoms Gastrointestinal: Reports: No Symptoms Genitourinary: Reports: No Symptoms Musculoskeletal: Reports: No Symptoms Skin: Reports: No Symptoms Neurological: Reports: No Symptoms Psychiatric: Reports: No Symptoms - Patient Data Vitals - Most Recent: Last Vital Signs Temp 36.5 C 08/30/17 15:56 Pulse 63 08/30/17 15:56 Resp 16 08/30/17 15:56 BP 142/93 H 08/30/17 15:57 Pulse Ox 93 L 08/30/17 15:56 Weight - Most Recent: 110.949 kg I&O - Last 24 Hours: Intake & Output 08/30/17 08/30/17 08/30/17 06:59 14:59 22:59 Intake Total 1100 180 Output Total 1350 Balance -250 180 Lab Results Last 24 Hours: Laboratory Results - last 24 hr 08/29/17 08/29/17 08/30/17 Range/Units 17:50 22:10 06:14 WBC (4.23-9.07) K/mm3 RBC (4.63-6.08) M/mm3 Hgb (13.7-17.5) gm/L Hct (40.1-51.0) % MCV (79.0-92.2) fl MCH (25.7-32.2) pg MCHC (32.2-35.5) g/dl RDW Std Deviation (35.1-43.9) fL Plt Count (163-337) K/mm3 MPV (9.4-12.3) fl Neut % (Auto) (34.0-67.9) % Lymph % (Auto) (21.8-53.1) % [place] % (Auto) (5.3-12.2) % Eos % (Auto) (0.8-7.0) Baso % (Auto) (0.1-1.2) % Neut # (Auto) (1.78-5.38) K/mm3 Lymph # (Auto) (1.32-3.57) K/mm3 [place] # (Auto) (0.30-0.82) K/mm3 Eos # (Auto) (0.04-0.54) K/mm3 Baso # (Auto) (0.01-0.08) K/mm3 Manual Slide Review Sodium (136-145) mEq/L Potassium (3.5-5.1) mEq/L Chloride (98-107) mEq/L Carbon Dioxide (21-32) mEq/L Anion Gap (5-15) BUN (7-18) mg/dL Creatinine (0.7-1.3) mg/dL Est Cr Clr Drug Dosing mL/min Estimated GFR (MDRD) (>60) mL/min BUN/Creatinine Ratio (14-18) Glucose 416 H (83-115) mg/dL POC Glucose 398 H 368 H (83-110) mg/dL Calcium (8.5-10.1) mg/dL C-Reactive Protein (<1.0) mg/dL 08/30/17 08/30/17 08/30/17 Range/Units 07:28 07:28 11:40 WBC 5.45 (4.23-9.07) K/mm3 RBC 3.78 L (4.63-6.08) M/mm3 Hgb 11.1 L (13.7-17.5) gm/L Hct 34.4 L (40.1-51.0) % MCV 91.0 (79.0-92.2) fl MCH 29.4 (25.7-32.2) pg MCHC 32.3 (32.2-35.5) g/dl RDW Std Deviation 46.0 H (35.1-43.9) fL Plt Count 133 L (163-337) K/mm3 MPV 10.8 (9.4-12.3) fl Neut % (Auto) 91.9 H (34.0-67.9) % Lymph % (Auto) 5.1 L (21.8-53.1) % Murray % (Auto) 2.6 L (5.3-12.2) % Eos % (Auto) 0 L (0.8-7.0) Baso % (Auto) 0.0 L (0.1-1.2) % Neut # (Auto) 5.01 (1.78-5.38) K/mm3 Lymph # (Auto) 0.28 L (1.32-3.57) K/mm3 Murray # (Auto) 0.14 L (0.30-0.82) K/mm3 Eos # (Auto) 0.00 L (0.04-0.54) K/mm3 Baso # (Auto) 0.00 L (0.01-0.08) K/mm3 Manual Slide Review Abnormal smear Sodium 139 (136-145) mEq/L Potassium 3.9 (3.5-5.1) mEq/L Chloride 99 (98-107) mEq/L Carbon Dioxide 31 (21-32) mEq/L Anion Gap 12.9 (5-15) BUN 30 H (7-18) mg/dL Creatinine 1.5 H (0.7-1.3) mg/dL Est Cr Clr Drug Dosing 49.29 mL/min Estimated GFR (MDRD) 45 (>60) mL/min BUN/Creatinine Ratio 20.0 H (14-18) Glucose 334 H (83-115) mg/dL POC Glucose 368 H (83-110) mg/dL Calcium 8.9 (8.5-10.1) mg/dL C-Reactive Protein 2.2 H* (<1.0) mg/dL Med Orders - Current: Current Medications Acetaminophen (Tylenol) 650 mg PO Q4H PRN PRN Reason: Pain (Mild 1-3)/fever Last Admin: 08/29/17 15:54 Dose: 650 mg Albuterol/Ipratropium (Duoneb 3.0-0.5 Mg/3 Ml) 3 ml NEB Q4H PRN PRN Reason: Shortness Of Breath/wheezing Last Admin: 08/30/17 05:25 Dose: 3 ml Apixaban (Eliquis) 5 mg PO BID [facility] Last Admin: 08/30/17 10:18 Dose: 5 mg Artificial Tears (Artificial Tears) 0 gm EYEBOTH BEDTIME [facility] Last Admin: 08/29/17 21:19 Dose: 1 applic Aspirin (Halfprin) 81 mg PO DAILY [facility] Last Admin: 08/30/17 10:18 Dose: 81 mg Benzonatate (Tessalon Perles) 200 mg PO TID [facility] Last Admin: 08/30/17 14:35 Dose: 200 mg Benzonatate (Tessalon Perles) 200 mg PO TID PRN PRN Reason: cough relief Bisacodyl (Dulcolax) 5 mg PO DAILY PRN PRN Reason: Constipation Budesonide (Pulmicort) 0.5 mg NEB BIDRT [facility] Last Admin: 08/30/17 05:25 Dose: 0.5 mg Captopril (Capoten) 50 mg PO BIDAC [facility] Last Admin: 08/30/17 15:57 Dose: 50 mg Clopidogrel Bisulfate (Plavix) 75 mg PO DAILY [facility] Last Admin: 08/30/17 10:17 Dose: 75 mg Dextrose/Water (Dextrose 50% In Water) 50 ml IVPUSH ASDIRECTED PRN PRN Reason: Hypoglycemia Docusate Sodium (Colace) 100 mg PO BID PRN PRN Reason: Constipation Doxycycline Hyclate (Vibramycin) 100 mg PO BID [facility] Flunisolide (Nasalide Nasal [place]) 0 ml NASBOTH DAILY [facility] Last Admin: 08/30/17 11:51 Dose: 2 sprays Furosemide (Lasix) 40 mg PO DAILY [facility] Last Admin: 08/30/17 10:16 Dose: 40 mg Gabapentin (Neurontin) 300 mg PO BEDTIME [facility] Last Admin: 08/29/17 21:14 Dose: 300 mg Guaifenesin/Phenylephrine HCl (Robitussin Dm) 10 ml PO Q4H PRN PRN Reason: Cough Last Admin: 08/29/17 22:27 Dose: 10 ml Guaifenesin/Phenylephrine HCl (Robitussin Dm) 10 ml PO Q12H PRN PRN Reason: Cough Hydralazine HCl (Apresoline) 10 mg IVPUSH Q6H PRN PRN Reason: Hypertension Last Admin: 08/29/17 05:31 Dose: 10 mg Insulin Aspart (Novolog) 17 unit SUBCUT 07,11 [facility] Last Admin: 08/30/17 11:41 Dose: 17 unit Insulin Aspart (Novolog) 26 unit SUBCUT DAILY@1700 [facility] Last Admin: 08/29/17 18:31 Dose: 26 units Insulin Aspart (Novolog) 0 unit SUBCUT QIDACANDBED [facility] PRN Reason: Protocol Last Admin: 08/30/17 11:42 Dose: 10 units Insulin Detemir (Levemir) 42 unit SUBCUT BID [facility] Last Admin: 08/30/17 10:19 Dose: 42 unit Isosorbide Mononitrate (Imdur) 120 mg PO DAILY [facility] Last Admin: 08/30/17 10:19 Dose: 120 mg Lamotrigine (Lamotrigine) 50 mg PO BEDTIME [facility] Last Admin: 08/29/17 21:12 Dose: 50 mg Levothyroxine Sodium (Synthroid) 50 mcg PO DAILY [facility] Last Admin: 08/30/17 10:17 Dose: 50 mcg Methylprednisolone Sodium Succinate (Solu-Medrol) 80 mg IVPUSH Q8H [facility] Last Admin: 08/30/17 14:35 Dose: 80 mg Metoprolol Tartrate (Lopressor) 5 mg IVPUSH Q4H PRN PRN Reason: Tachycardia Metoprolol Tartrate (Lopressor) 50 mg PO BID [facility] Last Admin: 08/30/17 10:17 Dose: 50 mg Montelukast Sodium (Singulair) 10 mg PO BEDTIME [facility] Last Admin: 08/29/17 21:18 Dose: 10 mg Umeclidinium [place] 62.5 Mcg (Incruse Ellipta) 0 mcg IH DAILY [facility] Last Admin: 08/30/17 11:39 Dose: Not Given Ondansetron HCl (Zofran Odt) 4 mg PO Q6H PRN PRN Reason: nausea, able to take PO Ondansetron HCl (Zofran) 4 mg IV Q6H PRN PRN Reason: Nausea/Vomiting Pantoprazole Sodium (Protonix) 40 mg PO DAILY [facility] Last Admin: 08/30/17 10:17 Dose: 40 mg Polyethylene Glycol (Miralax) 17 gm PO DAILY PRN PRN Reason: Constipation Last Admin: 08/30/17 11:38 Dose: 17 gm Ranolazine (Ranexa) 500 mg PO BID [facility] Last Admin: 08/30/17 10:19 Dose: 500 mg Rosuvastatin Calcium (Crestor) 20 mg PO DAILY [facility] Last Admin: 08/30/17 10:18 Dose: 20 mg Saccharomyces Boulardii (Florastor) 250 mg PO BID [facility] Last Admin: 08/30/17 10:17 Dose: 250 mg Senna/Docusate Sodium (Senna Plus) 1 tab PO BID PRN PRN Reason: Constipation Last Admin: 08/30/17 05:57 Dose: 1 tab Sodium Chloride (Saline Flush) 10 ml FLUSH ASDIRECTED PRN PRN Reason: Keep Vein Open Last Admin: 08/28/17 17:38 Dose: 10 ml Tamsulosin HCl (Flomax) 0.4 mg PO BEDTIME [facility] Last Admin: 08/29/17 21:16 Dose: 0.4 mg Temazepam (Restoril) 7.5 mg PO BEDTIME PRN PRN Reason: Sleep Discontinued Medications Albuterol/Ipratropium (Duoneb 3.0-0.5 Mg/3 Ml) 3 ml NEB ONETIME ONE Stop: 08/28/17 16:40 Last Admin: 08/28/17 17:07 Dose: 3 ml Benzonatate (Tessalon Perles) 100 mg PO QID [facility] Budesonide (Pulmicort) 0.25 mg NEB BIDRT [facility] Budesonide (Pulmicort) 0.25 mg INH BID [facility] Last Admin: 08/29/17 23:20 Dose: Not Given Levofloxacin/Dextrose 750 mg/ (Premix) 150 mls @ 100 mls/hr IV ONETIME ONE Stop: 08/28/17 18:08 Last Admin: 08/28/17 17:37 Dose: 100 mls/hr Doxycycline Hyclate 100 mg/ (Sodium Chloride) 100 mls @ 100 mls/hr IV Q12HR [facility] Stop: 08/30/17 11:00 Last Admin: 08/30/17 10:28 Dose: 100 mls/hr Doxycycline Hyclate 100 mg/ (Dextrose/Water) 100 mls @ 100 mls/hr IV Q12H [facility] Insulin Aspart (Novolog) 0 unit SUBCUT QIDACANDBED [facility] PRN Reason: Protocol Last Admin: 08/29/17 12:25 Dose: Not Given Insulin Aspart (Novolog) 0 unit SUBCUT QIDACANDBED [facility] PRN Reason: Protocol Last Admin: 08/29/17 12:29 Dose: 10 units Insulin Aspart (Novolog) 0 unit SUBCUT ONETIME ONE PRN Reason: Protocol Stop: 08/29/17 23:01 Last Admin: 08/29/17 22:48 Dose: 10 units Methylprednisolone Sodium Succinate (Solu-Medrol) 125 mg IVPUSH Q8H [facility] Last Admin: 08/30/17 06:00 Dose: 125 mg Methylprednisolone Sodium Succinate (Solu-Medrol) 80 mg IVPUSH Q8H [facility] Last Admin: 08/30/17 12:04 Dose: Not Given Metoprolol Tartrate (Lopressor) 25 mg PO BID [place] Morphine Sulfate (Morphine) 2 mg IVPUSH Q2H PRN PRN Reason: Pain (severe 7-10) Stop: 08/29/17 23:03 Pneumococcal Polyvalent Vaccine (Pneumovax 23) 0.5 ml IM .ONCE ONE Stop: 08/29/17 01:04 - Exam Quality Assessment: Supplemental Oxygen, DVT Prophylaxis General: Alert, Oriented, Cooperative, No Acute Distress HEENT: Pupils Equal, Pupils Reactive, EOMI Neck: Supple, Trachea Midline Lungs: Normal Respiratory Effort, Decreased Breath Sounds Cardiovascular: Regular Rate, Regular Rhythm GI/Abdominal Exam: Normal Bowel Sounds, Soft, Non-Tender, No Organomegaly, No Distention (Male) Exam: Deferred Back Exam: Normal Inspection Extremities: Normal Inspection, Normal Capillary Refill Skin: Warm Neurological: No New Focal Deficit, Normal Speech Psy/Mental Status: Alert, Normal Affect, Normal Mood - Problem List Review Problem List Initiated/Reviewed/Updated: Yes - My Orders Last 24 Hours: My Active Orders 08/30/17 07:00 Insulin Aspart [NovoLOG] See Protocol SUBCUT QIDACANDBED - Plan Plan:: I/P: Pneumonia -Questionable -Productive cough, shortness of breath, Increased O2 demand, but afebrile -In ED 2 days prior and diagnosed with Bronchitis/URI - antibiotic given -Appears to have infiltrate in RLL - formal radiology read pending -Given 750mg levaquin in ED - switched to Rocephin -RT/IS/Acapella -Duo-Nebs -WBC 5.73 -CRP - Ordered -Tessalon Perles-scheduled and Robitussin-prn for cough -O2 as needed - titrate and attempt to wean to baseline COPD exacerbation--->improving -Chronically on 3L O2 - titrates as needed -SOB for last few days -Rocephin -Solu-medrol -Pulmicort -Duo-nebs -RT to evaluate and treat -Home respiratory medications as ordered -O2 as needed Chest pain -Sternum and up into neck when coughing -Worsens with palpitation -Tessalon Perles and Robitussin to suppress cough -Pain medications as needed Elevated troponin -Hx/o SC with stent placement -Troponin 0.057 in ED - Repeat ordered in AM -12-lead obtained in ED shows NSR with no acute changes - repeat in AM -CKMB ordered -Has had episodes of elevated troponin in the past -Likely elevated due to heart strain -Continue to monitor Chronic: Impaired vision CKD Stage 3 - appears to be around baseline; Monitor HLD HTN - stable; PRN meds as ordered Hx/o SC with stent placement COPD - chronically O2 dependant Emphysema GERD Chronic back pain Osteoarthritis Headaches Type II DM - LA insulin, sliding scale insulin, Glucose checks QID AC and Bedtime Hypomagnesemia - Magnesium level ordered in AM Plan: Admit to medical floor with telemetry CM for discharge planning PT/OT Routine AM labs Other orders as indicated above Continue home medications as indicated DVT/PE prophylaxis: Home Plavix and JAMES Hose ENT for ruptured left ear drum as OP Code Status: Full Code; His PCP is Dr. Ovalle with [facility]. LOS> 96 hours has slowly responded with improvement of resp status
[2017-08-30] MEDS: Doxycycline 100 MG Cap PO SCH (21:11)
[2017-08-30] MEDS: Tamsulosin 0.4 MG Cap.ER PO SCH (21:12)
[2017-08-30] MEDS: Montelukast 10 MG Tab PO SCH (21:15)
[2017-08-30] MEDS: Gabapentin 300 MG Cap PO SCH (21:15)
[2017-08-30] MEDS: Lanolin/Mineral Oil/Petrolatum Ophth Oint 3.5 GM Tube EYEBOTH SCH (21:16)
[2017-08-30] MEDS: lamoTRIgine 100 MG Tab PO SCH (22:30)
[2017-08-31] MEDS: Acetaminophen 325 MG Tab PO PRN ×2 (00:17→06:10)
[2017-08-31] MEDS: hydrALAZINE 20 MG/ML SDV IVPUSH PRN (04:20)
[2017-08-31] MEDS: Budesonide 0.5 MG/2 ML Neb Susp NEB SCH ×2 (05:56→21:31)
[2017-08-31] MEDS: Albuterol/Ipratropium 3.0-0.5 MG/3 ML Neb Soln NEB PRN ×2 (05:56→21:31)
[2017-08-31] MEDS: methylPREDNISolone Sodium Succinate 40 MG/1 ML SDV IVPUSH SCH ×3 (06:10→20:13)
[2017-08-31] MEDS: Insulin Aspart 100 Units/ML 3 ML Pen SUBCUT SCH ×8 (08:17→22:00)
[2017-08-31] MEDS: Insulin Detemir 100 Units/ML 3 ML Pen SUBCUT SCH ×2 (08:20→20:17)
[2017-08-31] MEDS: Benzonatate 100 MG Cap PO SCH ×3 (08:21→20:10)
[2017-08-31] MEDS: Rosuvastatin 10 MG Tab PO SCH (08:21)
[2017-08-31] MEDS: Doxycycline 100 MG Cap PO SCH ×2 (08:22→20:10)
[2017-08-31] MEDS: Furosemide 40 MG Tab PO SCH (08:22)
[2017-08-31] MEDS: Clopidogrel 75 MG Tab PO SCH (08:22)
[2017-08-31] MEDS: Apixaban 5 MG Tab PO SCH ×2 (08:22→20:11)
[2017-08-31] MEDS: Aspirin 81 MG Tab.EC PO SCH (08:22)
[2017-08-31] MEDS: Levothyroxine 50 MCG Tab PO SCH (08:22)
[2017-08-31] MEDS: Saccharomyces Boulardii (Probiotic) 250 MG Cap PO SCH ×2 (08:23→20:13)
[2017-08-31] MEDS: Pantoprazole 40 MG Tab.CR PO SCH (08:23)
[2017-08-31] MEDS: Metoprolol Tartrate 50 MG Tab PO SCH ×2 (08:23→20:12)
[2017-08-31] MEDS: Isosorbide Mononitrate 60 MG Tab.ER PO SCH (08:23)
[2017-08-31] MEDS ORDERED: Magnesium Hydroxide 400 MG/5 ML Susp 30 ML Cup PO ONE (11:00)
--- NOTE | 2017-08-31 11:05 | PCM.PN ---
- General Info Date of Service: 08/31/17 Functional Status: Reports: Tolerating Diet, Urinating, Incentive Spirometry - Review of Systems General: Reports: No Symptoms HEENT: Reports: No Symptoms Pulmonary: Reports: No Symptoms Cardiovascular: Reports: No Symptoms Gastrointestinal: Reports: No Symptoms Genitourinary: Reports: No Symptoms Musculoskeletal: Reports: No Symptoms Skin: Reports: No Symptoms Neurological: Reports: No Symptoms Psychiatric: Reports: No Symptoms - Patient Data Vitals - Most Recent: Last Vital Signs Temp 36.4 C 08/31/17 08:09 Pulse 80 08/31/17 08:23 Resp 16 08/31/17 08:09 BP 138/79 08/31/17 08:23 Pulse Ox 91 L 08/31/17 08:09 Weight - Most Recent: 111.629 kg I&O - Last 24 Hours: Intake & Output 08/30/17 08/31/17 08/31/17 22:59 06:59 14:59 Intake Total 2160 1850 180 Output Total 1500 4450 Balance 660 -2600 180 Lab Results Last 24 Hours: Laboratory Results - last 24 hr 08/30/17 08/30/17 08/30/17 Range/Units 11:40 17:57 20:49 WBC (4.23-9.07) K/mm3 RBC (4.63-6.08) M/mm3 Hgb (13.7-17.5) gm/L Hct (40.1-51.0) % MCV (79.0-92.2) fl MCH (25.7-32.2) pg MCHC (32.2-35.5) g/dl RDW Std Deviation (35.1-43.9) fL Plt Count (163-337) K/mm3 MPV (9.4-12.3) fl Neut % (Auto) (34.0-67.9) % Lymph % (Auto) (21.8-53.1) % [place] % (Auto) (5.3-12.2) % Eos % (Auto) (0.8-7.0) Baso % (Auto) (0.1-1.2) % Neut # (Auto) (1.78-5.38) K/mm3 Lymph # (Auto) (1.32-3.57) K/mm3 [place] # (Auto) (0.30-0.82) K/mm3 Eos # (Auto) (0.04-0.54) K/mm3 Baso # (Auto) (0.01-0.08) K/mm3 Manual Slide Review Sodium (136-145) mEq/L Potassium (3.5-5.1) mEq/L Chloride (98-107) mEq/L Carbon Dioxide (21-32) mEq/L Anion Gap (5-15) BUN (7-18) mg/dL Creatinine (0.7-1.3) mg/dL Est Cr Clr Drug Dosing mL/min Estimated GFR (MDRD) (>60) mL/min BUN/Creatinine Ratio (14-18) Glucose (83-115) mg/dL POC Glucose 368 H 363 H 269 H (83-110) mg/dL Calcium (8.5-10.1) mg/dL C-Reactive Protein (<1.0) mg/dL 08/31/17 08/31/17 08/31/17 Range/Units 06:15 06:15 06:15 WBC 9.66 H (4.23-9.07) K/mm3 RBC 3.97 L (4.63-6.08) M/mm3 Hgb 11.6 L (13.7-17.5) gm/L Hct 35.9 L (40.1-51.0) % MCV 90.4 (79.0-92.2) fl MCH 29.2 (25.7-32.2) pg MCHC 32.3 (32.2-35.5) g/dl RDW Std Deviation 46.1 H (35.1-43.9) fL Plt Count 139 L (163-337) K/mm3 MPV 11.2 (9.4-12.3) fl Neut % (Auto) 91.4 H (34.0-67.9) % Lymph % (Auto) 4.6 L (21.8-53.1) % [place] % (Auto) 3.1 L (5.3-12.2) % Eos % (Auto) 0 L (0.8-7.0) Baso % (Auto) 0.1 (0.1-1.2) % Neut # (Auto) 8.83 H (1.78-5.38) K/mm3 Lymph # (Auto) 0.44 L (1.32-3.57) K/mm3 [place] # (Auto) 0.30 (0.30-0.82) K/mm3 Eos # (Auto) 0.00 L (0.04-0.54) K/mm3 Baso # (Auto) 0.01 (0.01-0.08) K/mm3 Manual Slide Review Abnormal smear Sodium 141 (136-145) mEq/L Potassium 4.0 (3.5-5.1) mEq/L Chloride 100 (98-107) mEq/L Carbon Dioxide 33 H (21-32) mEq/L Anion Gap 12.0 (5-15) BUN 34 H (7-18) mg/dL Creatinine 1.5 H (0.7-1.3) mg/dL Est Cr Clr Drug Dosing 49.29 mL/min Estimated GFR (MDRD) 45 (>60) mL/min BUN/Creatinine Ratio 22.7 H (14-18) Glucose 293 H (83-115) mg/dL POC Glucose 358 H (83-110) mg/dL Calcium 8.9 (8.5-10.1) mg/dL C-Reactive Protein 1.0 (<1.0) mg/dL Med Orders - Current: Current Medications Acetaminophen (Tylenol) 650 mg PO Q4H PRN PRN Reason: Pain (Mild 1-3)/fever Last Admin: 08/31/17 06:10 Dose: 650 mg Albuterol/Ipratropium (Duoneb 3.0-0.5 Mg/3 Ml) 3 ml NEB Q4H PRN PRN Reason: Shortness Of Breath/wheezing Last Admin: 08/31/17 05:56 Dose: 3 ml Apixaban (Eliquis) 5 mg PO BID [facility] Last Admin: 08/31/17 08:22 Dose: 5 mg Artificial Tears (Artificial Tears) 0 gm EYEBOTH BEDTIME [facility] Last Admin: 08/30/17 21:16 Dose: 1 applic Aspirin (Halfprin) 81 mg PO DAILY [facility] Last Admin: 08/31/17 08:22 Dose: 81 mg Benzonatate (Tessalon Perles) 200 mg PO TID [facility] Last Admin: 08/31/17 08:21 Dose: 200 mg Benzonatate (Tessalon Perles) 200 mg PO TID PRN PRN Reason: cough relief Bisacodyl (Dulcolax) 5 mg PO DAILY PRN PRN Reason: Constipation Budesonide (Pulmicort) 0.5 mg NEB BIDRT [facility] Last Admin: 08/31/17 05:56 Dose: 0.5 mg Captopril (Capoten) 50 mg PO BIDAC [facility] Last Admin: 08/31/17 06:09 Dose: 50 mg Clopidogrel Bisulfate (Plavix) 75 mg PO DAILY [facility] Last Admin: 08/31/17 08:22 Dose: 75 mg Dextrose/Water (Dextrose 50% In Water) 50 ml IVPUSH ASDIRECTED PRN PRN Reason: Hypoglycemia Docusate Sodium (Colace) 100 mg PO BID PRN PRN Reason: Constipation Doxycycline Hyclate (Vibramycin) 100 mg PO BID [facility] Last Admin: 08/31/17 08:22 Dose: 100 mg Flunisolide (Nasalide Nasal [place]) 0 ml NASBOTH DAILY [facility] Last Admin: 08/31/17 08:24 Dose: 2 sprays Furosemide (Lasix) 40 mg PO DAILY [facility] Last Admin: 08/31/17 08:22 Dose: 40 mg Gabapentin (Neurontin) 300 mg PO BEDTIME [facility] Last Admin: 08/30/17 21:15 Dose: 300 mg Guaifenesin/Phenylephrine HCl (Robitussin Dm) 10 ml PO Q4H PRN PRN Reason: Cough Last Admin: 08/29/17 22:27 Dose: 10 ml Guaifenesin/Phenylephrine HCl (Robitussin Dm) 10 ml PO Q12H PRN PRN Reason: Cough Hydralazine HCl (Apresoline) 10 mg IVPUSH Q6H PRN PRN Reason: Hypertension Last Admin: 08/31/17 04:20 Dose: 10 mg Insulin Aspart (Novolog) 17 unit SUBCUT 07,11 [facility] Last Admin: 08/31/17 08:17 Dose: 17 unit Insulin Aspart (Novolog) 26 unit SUBCUT DAILY@1700 [facility] Last Admin: 08/30/17 17:59 Dose: 26 units Insulin Aspart (Novolog) 0 unit SUBCUT QIDACANDBED [facility] PRN Reason: Protocol Last Admin: 08/31/17 08:18 Dose: 10 units Insulin Detemir (Levemir) 42 unit SUBCUT BID [facility] Last Admin: 08/31/17 08:20 Dose: 42 unit Isosorbide Mononitrate (Imdur) 120 mg PO DAILY [facility] Last Admin: 08/31/17 08:23 Dose: 120 mg Lamotrigine (Lamotrigine) 50 mg PO BEDTIME [facility] Last Admin: 08/30/17 22:30 Dose: Not Given Levothyroxine Sodium (Synthroid) 50 mcg PO DAILY [facility] Last Admin: 08/31/17 08:22 Dose: 50 mcg Methylprednisolone Sodium Succinate (Solu-Medrol) 80 mg IVPUSH Q8H [facility] Last Admin: 08/31/17 06:10 Dose: 80 mg Metoprolol Tartrate (Lopressor) 5 mg IVPUSH Q4H PRN PRN Reason: Tachycardia Metoprolol Tartrate (Lopressor) 50 mg PO BID [facility] Last Admin: 08/31/17 08:23 Dose: 50 mg Montelukast Sodium (Singulair) 10 mg PO BEDTIME [facility] Last Admin: 08/30/17 21:15 Dose: 10 mg Umeclidinium [place] 62.5 Mcg (Incruse Ellipta) 0 mcg IH DAILY [facility] Last Admin: 08/30/17 11:39 Dose: Not Given Ondansetron HCl (Zofran Odt) 4 mg PO Q6H PRN PRN Reason: nausea, able to take PO Ondansetron HCl (Zofran) 4 mg IV Q6H PRN PRN Reason: Nausea/Vomiting Pantoprazole Sodium (Protonix) 40 mg PO DAILY [facility] Last Admin: 08/31/17 08:23 Dose: 40 mg Polyethylene Glycol (Miralax) 17 gm PO DAILY PRN PRN Reason: Constipation Last Admin: 08/30/17 11:38 Dose: 17 gm Ranolazine (Ranexa) 500 mg PO BID [facility] Last Admin: 08/31/17 08:21 Dose: 500 mg Rosuvastatin Calcium (Crestor) 20 mg PO DAILY [facility] Last Admin: 08/31/17 08:21 Dose: 20 mg Saccharomyces Boulardii (Florastor) 250 mg PO BID [facility] Last Admin: 08/31/17 08:23 Dose: 250 mg Senna/Docusate Sodium (Senna Plus) 1 tab PO BID PRN PRN Reason: Constipation Last Admin: 08/30/17 05:57 Dose: 1 tab Sodium Chloride (Saline Flush) 10 ml FLUSH ASDIRECTED PRN PRN Reason: Keep Vein Open Last Admin: 08/28/17 17:38 Dose: 10 ml Tamsulosin HCl (Flomax) 0.4 mg PO BEDTIME [facility] Last Admin: 08/30/17 21:12 Dose: 0.4 mg Temazepam (Restoril) 7.5 mg PO BEDTIME PRN PRN Reason: Sleep Discontinued Medications Albuterol/Ipratropium (Duoneb 3.0-0.5 Mg/3 Ml) 3 ml NEB ONETIME ONE Stop: 08/28/17 16:40 Last Admin: 08/28/17 17:07 Dose: 3 ml Benzonatate (Tessalon Perles) 100 mg PO QID [facility] Budesonide (Pulmicort) 0.25 mg NEB BIDRT [facility] Budesonide (Pulmicort) 0.25 mg INH BID [facility] Last Admin: 08/29/17 23:20 Dose: Not Given Levofloxacin/Dextrose 750 mg/ (Premix) 150 mls @ 100 mls/hr IV ONETIME ONE Stop: 08/28/17 18:08 Last Admin: 08/28/17 17:37 Dose: 100 mls/hr Doxycycline Hyclate 100 mg/ (Sodium Chloride) 100 mls @ 100 mls/hr IV Q12HR [facility] Stop: 08/30/17 11:00 Last Admin: 08/30/17 10:28 Dose: 100 mls/hr Doxycycline Hyclate 100 mg/ (Dextrose/Water) 100 mls @ 100 mls/hr IV Q12H [facility] Insulin Aspart (Novolog) 0 unit SUBCUT QIDACANDBED [facility] PRN Reason: Protocol Last Admin: 08/29/17 12:25 Dose: Not Given Insulin Aspart (Novolog) 0 unit SUBCUT QIDACANDBED [facility] PRN Reason: Protocol Last Admin: 08/29/17 12:29 Dose: 10 units Insulin Aspart (Novolog) 0 unit SUBCUT ONETIME ONE PRN Reason: Protocol Stop: 08/29/17 23:01 Last Admin: 08/29/17 22:48 Dose: 10 units Lamotrigine (Lamotrigine) 50 mg PO ONETIME ONE Stop: 08/30/17 22:01 Last Admin: 08/30/17 22:22 Dose: 50 mg Magnesium Hydroxide (Milk Of Magnesia) 30 ml PO ONETIME ONE Stop: 08/31/17 11:01 Methylprednisolone Sodium Succinate (Solu-Medrol) 125 mg IVPUSH Q8H [facility] Last Admin: 08/30/17 06:00 Dose: 125 mg Methylprednisolone Sodium Succinate (Solu-Medrol) 80 mg IVPUSH Q8H [facility] Last Admin: 08/30/17 12:04 Dose: Not Given Metoprolol Tartrate (Lopressor) 25 mg PO BID [facility] Morphine Sulfate (Morphine) 2 mg IVPUSH Q2H PRN PRN Reason: Pain (severe 7-10) Stop: 08/29/17 23:03 Pneumococcal Polyvalent Vaccine (Pneumovax 23) 0.5 ml IM .ONCE ONE Stop: 08/29/17 01:04 - Exam Quality Assessment: Supplemental Oxygen, DVT Prophylaxis General: Alert, Oriented, Cooperative, No Acute Distress HEENT: Pupils Equal, Pupils Reactive, EOMI Neck: Supple, Trachea Midline Lungs: Normal Respiratory Effort Cardiovascular: Regular Rate, Regular Rhythm GI/Abdominal Exam: Normal Bowel Sounds, Soft, Non-Tender, No Organomegaly, No Distention (Male) Exam: Deferred Back Exam: Normal Inspection Extremities: Normal Inspection Skin: Warm Neurological: No New Focal Deficit Psy/Mental Status: Alert, Normal Affect, Normal Mood - Problem List Review Problem List Initiated/Reviewed/Updated: Yes - Plan Plan:: I/P: Pneumonia -Questionable -Productive cough, shortness of breath, Increased O2 demand, but afebrile -In ED 2 days prior and diagnosed with Bronchitis/URI - antibiotic given -Appears to have infiltrate in RLL - formal radiology read pending -Given 750mg levaquin in ED - switched to Rocephin -RT/IS/Acapella -Duo-Nebs -WBC 5.73 -CRP - Ordered -Tessalon Perles-scheduled and Robitussin-prn for cough -O2 as needed - titrate and attempt to wean to baseline COPD exacerbation--->improving -Chronically on 3L O2 - titrates as needed -SOB for last few days -Rocephin -Solu-medrol -Pulmicort -Duo-nebs -RT to evaluate and treat -Home respiratory medications as ordered -O2 as needed Chest pain -Sternum and up into neck when coughing -Worsens with palpitation -Tessalon Perles and Robitussin to suppress cough -Pain medications as needed Elevated troponin -Hx/o FL with stent placement -Troponin 0.057 in ED - Repeat ordered in AM -12-lead obtained in ED shows NSR with no acute changes - repeat in AM -CKMB ordered -Has had episodes of elevated troponin in the past -Likely elevated due to heart strain -Continue to monitor Chronic: Impaired vision CKD Stage 3 - appears to be around baseline; Monitor HLD HTN - stable; PRN meds as ordered Hx/o FL with stent placement COPD - chronically O2 dependant Emphysema GERD Chronic back pain Osteoarthritis Headaches Type II DM - LA insulin, sliding scale insulin, Glucose checks QID AC and Bedtime Hypomagnesemia - Magnesium level ordered in AM Plan: Admit to medical floor with telemetry CM for discharge planning PT/OT Routine AM labs Other orders as indicated above Continue home medications as indicated DVT/PE prophylaxis: Home Plavix and JAMES Hose ENT for ruptured left ear drum as OP Code Status: Full Code; His PCP is Dr. Ovalle with [facility]. LOS> 96 hours has slowly responded with improvement of resp status
[2017-08-31] MEDS: guaiFENesin/Dextromethorphan 100-10 MG/5 ML Soln 5 ML Cup PO PRN (11:17)
[2017-08-31] MEDS: Polyethylene Glycol 3350 Powder 17 GM Packet PO PRN (11:18)
[2017-08-31] MEDS: Lanolin/Mineral Oil/Petrolatum Ophth Oint 3.5 GM Tube EYEBOTH SCH (20:09)
[2017-08-31] MEDS: Gabapentin 300 MG Cap PO SCH (20:10)
[2017-08-31] MEDS: Tamsulosin 0.4 MG Cap.ER PO SCH (20:11)
[2017-08-31] MEDS: Montelukast 10 MG Tab PO SCH (20:12)
[2017-08-31] MEDS: UMECLIDINIUM BROMIDE 62.5 MCG IH SCH ×2 (20:18→21:39)
[2017-08-31] MEDS: lamoTRIgine 100 MG Tab PO SCH (20:40)
[2017-09-01] MEDS: methylPREDNISolone Sodium Succinate 40 MG/1 ML SDV IVPUSH SCH (04:01)
[2017-09-01] MEDS: guaiFENesin/Dextromethorphan 100-10 MG/5 ML Soln 5 ML Cup PO PRN (05:07)
[2017-09-01] MEDS: Albuterol/Ipratropium 3.0-0.5 MG/3 ML Neb Soln NEB PRN (05:50)
[2017-09-01] MEDS: Budesonide 0.5 MG/2 ML Neb Susp NEB SCH (05:50)
[2017-09-01] MEDS: UMECLIDINIUM BROMIDE 62.5 MCG IH SCH (08:15)
[2017-09-01 08:18] VITALS: BP 153/62
[2017-09-01] MEDS: Pantoprazole 40 MG Tab.CR PO SCH (08:18)
[2017-09-01] MEDS: Doxycycline 100 MG Cap PO SCH (08:18)
[2017-09-01] MEDS: Furosemide 40 MG Tab PO SCH (08:18)
[2017-09-01] MEDS: Aspirin 81 MG Tab.EC PO SCH (08:18)
[2017-09-01] MEDS: Isosorbide Mononitrate 60 MG Tab.ER PO SCH (08:18)
[2017-09-01] MEDS: Benzonatate 100 MG Cap PO SCH (08:18)
[2017-09-01] MEDS: Levothyroxine 50 MCG Tab PO SCH (08:18)
[2017-09-01] MEDS: Clopidogrel 75 MG Tab PO SCH (08:19)
[2017-09-01] MEDS: Apixaban 5 MG Tab PO SCH (08:19)
[2017-09-01] MEDS: Rosuvastatin 10 MG Tab PO SCH (08:19)
[2017-09-01] MEDS: Metoprolol Tartrate 50 MG Tab PO SCH (08:19)
[2017-09-01] MEDS: Saccharomyces Boulardii (Probiotic) 250 MG Cap PO SCH (08:19)
[2017-09-01] MEDS: Insulin Detemir 100 Units/ML 3 ML Pen SUBCUT SCH (08:23)
[2017-09-01] MEDS: Insulin Aspart 100 Units/ML 3 ML Pen SUBCUT SCH ×2 (08:24)
[2017-09-02] MEDS ORDERED: predniSONE 10 MG Tab PO SCH (10:00)
--- NOTE | 2017-09-02 19:51 | PCM.DCSUM1 ---
Discharge Summary - Hospital Course Free Text/Narrative:: 77 year old male with SOB at rest and with exertion was initially seen in the ED and discharged returned with worsening SOB.... He had a productive cough, congestion, chest pain, and SOB which started a few days prior. He was diagnosed with URI and bronchitis 2 days prior at our ED. Antibiotics were prescribed and he was sent home. He is chronically on 3L of oxygen, however he does titrate this based upon symptoms. On ED arrival he was up to 4L. He reports chest pain and neck pain with coughing. Producing white/yellow phlegm which is sometimes blood tinged. Denies nausea, vomiting, and abdominal pain. He is a patient of the [facility]. He also reported urinary urgency. IV antibiotics, IV steroids and nebulizer treatment was provided. Consults included PT/OT with additional equipment provided. He carries a history of impaired vision, HLD, HTN, PR, COPD, emphysema, GERD, chronic lower back pain, osteoarthritis, chronic headaches, CVA, type II DM, hypomagnesemia. He is a former smoker. He is a full code. His PCP is Dr. Ovalle in [place] as part of the [facility]. Primary Dx -Pneumonia -COPD exacerbation -Acute respiratory distress with hypoxia Activity As tolerated Diet Usual dietary restrictions Medications Metoprolol 50 mg BID Prednisone taper 40 mg taper daily as directed Robitussin DM 10 cc po Q 4 hours prn cough. Doxycycline 100 mg BID Follow up PCP Will need ENT for evaluation of perforated left ear drum - Discharge Data Discharge Date: 09/01/17 Discharge Disposition: Home, Self-Care 01 Condition: Good - Patient Summary/Data Consults: Consultations 08/28/17 22:53 Consult to Case Management [CONS] Routine OT Evaluation and Treatment [CONS] Routine PT Evaluation and Treatment [CONS] Routine Respiratory Care Assess and Treatment [CONS] Routine - Patient Instructions Diet: Usual Diet as Tolerated Activity: As Tolerated Driving: May Drive Today Showering/Bathing: May Shower Notify Provider of: Fever, Nausea and/or Vomiting - Discharge Plan Prescriptions/Med Rec: Dextromethorphan/guaiFENesin [Robitussin DM] 10 ml PO Q12H PRN #240 cup PRN Reason: Cough Doxycycline Calcium [IMW: Doxycycline] 100 mg PO BID #14 capsule Metoprolol Tartrate [Lopressor] 50 mg PO BID #60 tablet predniSONE 40 mg PO .Daily Taper #14 tablet Home Medications: Home Meds Aspirin [Adult Low Dose Aspirin EC] 81 mg PO DAILY 03/05/14 [History] Clopidogrel [Plavix] 75 mg PO DAILY 03/05/14 [History] Isosorbide Mononitrate [Imdur] 120 mg PO DAILY 03/05/14 [History] Nitroglycerin [Nitrostat] 0.4 mg SL ASDIRECTED PRN 03/05/14 [History] Polyethylene Glycol 1000 [Polyethylene Glycol] 1 scoop PO ASDIRECTED 03/05/14 [ History] Insulin Aspart [Novolog Flexpen] 17 unit SQ 04/24/14 [History] Acetaminophen [Acetaminophen Extra Strength] 1,000 mg PO BID PRN 10/15/14 [ History] Insulin Aspart [Novolog Flexpen] 26 unit SQ PCDINNER 10/15/14 [History] Metoprolol Tartrate 50 mg PO BID 10/15/14 [History] Ranolazine [Ranexa] 500 mg PO BID 12/28/14 [History] Fluticasone Propionate [Flonase] 2 spray NS DAILY 03/30/16 [History] Pantoprazole [ProTONIX] 40 mg PO DAILY 03/30/16 [History] Antacids 1 tab PO ASDIRECTED 06/30/16 [History] Budesonide [Pulmicort] 0.25 mg INH BID 06/30/16 [History] Furosemide [Lasix] 40 mg PO DAILY 06/30/16 [History] Levothyroxine Sodium [Synthroid] 50 mcg PO DAILY 06/30/16 [History] Montelukast [Singulair] 10 mg PO BEDTIME 06/30/16 [History] Naphazoline HCl/Pheniramine [Opcon-A Eye Drops] 1 drop EYEBOTH DAILY 06/30/16 [ History] Ondansetron [Zofran ODT] 4 mg PO Q8H PRN 06/30/16 [History] Rosuvastatin [Crestor] 20 mg PO DAILY 06/30/16 [History] Tamsulosin [Flomax] 0.4 mg PO BEDTIME 06/30/16 [History] Captopril 50 mg PO BID 06/17/17 [History] Gabapentin [Neurontin] 300 mg PO BEDTIME 06/17/17 [History] Polyvinyl Alcohol/Povidone [Artificial Tears Drops] 15 ml OP QID PRN 06/17/17 [ History] Umeclidinium Daisy [Incruse Ellipta*] 62.5 mcg IH DAILY 06/17/17 [History] lamoTRIgine [Lamotrigine] 50 mg PO BEDTIME 06/17/17 [History] Benzonatate [Tessalon Perles] 200 mg PO TID PRN #18 cap 08/26/17 [Rx] Apixaban [Eliquis] 5 mg PO BID 08/28/17 [History] Cyanocobalamin (Vitamin B-12) [Cyanocobalamin Injection] 1 injection IM Q30D 11/10 [History] Insulin Glargine,Hum.Rec.Anlog [Basaglar Kwikpen U-100] 42 units SQ BID [History] Mineral Oil/Petrolatum Oint [Lacri-Lube S.O.P Oint] 3.5 gm EYEBOTH BEDTIME 08/28 [History] Albuterol Sulfate [Proair Respiclick] 2 puff IH QID PRN 08/29/17 [History] Arfomoterol 1 inh INH BID 08/29/17 [History] Freshkote. 2 applic OP QID 08/29/17 [History] Triamcinolone Acetonide [Triamcinolone Acetonide 0.1% Crm] 1 applic TOP DAILY PRN 08/29/17 [History] Dextromethorphan/guaiFENesin [Robitussin DM] 10 ml PO Q12H PRN #240 cup [Rx] Doxycycline Calcium [IMW: Doxycycline] 100 mg PO BID #14 capsule 09/01/17 [Rx] Metoprolol Tartrate [Lopressor] 50 mg PO BID #60 tablet 09/01/17 [Rx] predniSONE 40 mg PO .Daily Taper #14 tablet 09/01/17 [Rx] Referrals: Joshua Ovalle MD [Primary Care Provider] - (Follow up in 2-3 weeks) - Discharge Summary/Plan Comment DC Time >30 min.: No - General Info Date of Service: 08/28/17 Functional Status: Reports: Tolerating Diet, Ambulating, Urinating, Incentive Spirometry - Review of Systems General: Reports: No Symptoms HEENT: Reports: No Symptoms Pulmonary: Reports: No Symptoms Cardiovascular: Reports: No Symptoms Gastrointestinal: Reports: No Symptoms Genitourinary: Reports: No Symptoms Musculoskeletal: Reports: No Symptoms Skin: Reports: No Symptoms Neurological: Reports: No Symptoms Psychiatric: Reports: No Symptoms - Patient Data Vitals - Most Recent: Last Vital Signs Temp 36.4 C 09/01/17 08:04 Pulse 72 09/01/17 08:19 Resp 18 09/01/17 08:04 BP 153/62 H 09/01/17 08:19 Pulse Ox 91 L 09/01/17 08:16 Weight - Most Recent: 112.808 kg Med Orders - Current: Current Medications Discontinued Medications Acetaminophen (Tylenol) 650 mg PO Q4H PRN PRN Reason: Pain (Mild 1-3)/fever Last Admin: 08/31/17 06:10 Dose: 650 mg Albuterol/Ipratropium (Duoneb 3.0-0.5 Mg/3 Ml) 3 ml NEB ONETIME ONE Stop: 08/28/17 16:40 Last Admin: 08/28/17 17:07 Dose: 3 ml Albuterol/Ipratropium (Duoneb 3.0-0.5 Mg/3 Ml) 3 ml NEB Q4H PRN PRN Reason: Shortness Of Breath/wheezing Last Admin: 09/01/17 05:50 Dose: 3 ml Apixaban (Eliquis) 5 mg PO BID [facility] Last Admin: 09/01/17 08:19 Dose: 5 mg Artificial Tears (Artificial Tears) 0 gm EYEBOTH BEDTIME [facility] Last Admin: 08/31/17 20:09 Dose: 1 applic Aspirin (Halfprin) 81 mg PO DAILY [facility] Last Admin: 09/01/17 08:18 Dose: 81 mg Benzonatate (Tessalon Perles) 100 mg PO QID [place] Benzonatate (Tessalon Perles) 200 mg PO TID [facility] Last Admin: 09/01/17 08:18 Dose: 200 mg Benzonatate (Tessalon Perles) 200 mg PO TID PRN PRN Reason: cough relief Bisacodyl (Dulcolax) 5 mg PO DAILY PRN PRN Reason: Constipation Budesonide (Pulmicort) 0.25 mg NEB BIDRT [facility] Budesonide (Pulmicort) 0.5 mg NEB BIDRT [facility] Last Admin: 09/01/17 05:50 Dose: 0.5 mg Budesonide (Pulmicort) 0.25 mg INH BID [facility] Last Admin: 08/29/17 23:20 Dose: Not Given Captopril (Capoten) 50 mg PO BIDAC [facility] Last Admin: 09/01/17 05:07 Dose: 50 mg Clopidogrel Bisulfate (Plavix) 75 mg PO DAILY [facility] Last Admin: 09/01/17 08:19 Dose: 75 mg Dextrose/Water (Dextrose 50% In Water) 50 ml IVPUSH ASDIRECTED PRN PRN Reason: Hypoglycemia Docusate Sodium (Colace) 100 mg PO BID PRN PRN Reason: Constipation Doxycycline Hyclate (Vibramycin) 100 mg PO BID [facility] Last Admin: 09/01/17 08:18 Dose: 100 mg Flunisolide (Nasalide Nasal [place]) 0 ml NASBOTH DAILY [facility] Last Admin: 09/01/17 08:19 Dose: 2 sprays Furosemide (Lasix) 40 mg PO DAILY [facility] Last Admin: 09/01/17 08:18 Dose: 40 mg Gabapentin (Neurontin) 300 mg PO BEDTIME [facility] Last Admin: 08/31/17 20:10 Dose: 300 mg Guaifenesin/Phenylephrine HCl (Robitussin Dm) 10 ml PO Q4H PRN PRN Reason: Cough Last Admin: 09/01/17 05:07 Dose: 10 ml Guaifenesin/Phenylephrine HCl (Robitussin Dm) 10 ml PO Q12H PRN PRN Reason: Cough Hydralazine HCl (Apresoline) 10 mg IVPUSH Q6H PRN PRN Reason: Hypertension Last Admin: 08/31/17 04:20 Dose: 10 mg Levofloxacin/Dextrose 750 mg/ (Premix) 150 mls @ 100 mls/hr IV ONETIME ONE Stop: 08/28/17 18:08 Last Admin: 08/28/17 17:37 Dose: 100 mls/hr Doxycycline Hyclate 100 mg/ (Sodium Chloride) 100 mls @ 100 mls/hr IV Q12HR [facility] Stop: 08/30/17 11:00 Last Admin: 08/30/17 10:28 Dose: 100 mls/hr Doxycycline Hyclate 100 mg/ (Dextrose/Water) 100 mls @ 100 mls/hr IV Q12H [facility] Insulin Aspart (Novolog) 0 unit SUBCUT QIDACANDBED [facility] PRN Reason: Protocol Last Admin: 08/29/17 12:25 Dose: Not Given Insulin Aspart (Novolog) 0 unit SUBCUT QIDACANDBED [facility] PRN Reason: Protocol Last Admin: 08/29/17 12:29 Dose: 10 units Insulin Aspart (Novolog) 17 unit SUBCUT 07,11 [facility] Last Admin: 09/01/17 08:24 Dose: 17 unit Insulin Aspart (Novolog) 26 unit SUBCUT DAILY@1700 [facility] Last Admin: 08/31/17 17:06 Dose: 26 units Insulin Aspart (Novolog) 0 unit SUBCUT QIDACANDBED [facility] PRN Reason: Protocol Last Admin: 09/01/17 08:24 Dose: Not Given Insulin Aspart (Novolog) 0 unit SUBCUT ONETIME ONE PRN Reason: Protocol Stop: 08/29/17 23:01 Last Admin: 08/29/17 22:48 Dose: 10 units Insulin Detemir (Levemir) 42 unit SUBCUT BID [facility] Last Admin: 09/01/17 08:23 Dose: 42 unit Isosorbide Mononitrate (Imdur) 120 mg PO DAILY [facility] Last Admin: 09/01/17 08:18 Dose: 120 mg Lamotrigine (Lamotrigine) 50 mg PO BEDTIME [facility] Last Admin: 08/31/17 20:40 Dose: Not Given Lamotrigine (Lamotrigine) 50 mg PO ONETIME ONE Stop: 08/30/17 22:01 Last Admin: 08/30/17 22:22 Dose: 50 mg Lamotrigine (Lamotrigine) 50 mg PO ONETIME ONE Stop: 08/31/17 20:31 Last Admin: 08/31/17 20:33 Dose: 50 mg Levothyroxine Sodium (Synthroid) 50 mcg PO DAILY [facility] Last Admin: 09/01/17 08:18 Dose: 50 mcg Magnesium Hydroxide (Milk Of Magnesia) 30 ml PO ONETIME ONE Stop: 08/31/17 11:01 Last Admin: 08/31/17 11:17 Dose: 30 ml Methylprednisolone Sodium Succinate (Solu-Medrol) 125 mg IVPUSH Q8H [facility] Last Admin: 08/30/17 06:00 Dose: 125 mg Methylprednisolone Sodium Succinate (Solu-Medrol) 80 mg IVPUSH Q8H [facility] Last Admin: 08/30/17 12:04 Dose: Not Given Methylprednisolone Sodium Succinate (Solu-Medrol) 80 mg IVPUSH Q8H [facility] Last Admin: 08/31/17 06:10 Dose: 80 mg Methylprednisolone Sodium Succinate (Solu-Medrol) 40 mg IVPUSH Q8H [facility] Last Admin: 09/01/17 04:01 Dose: 40 mg Metoprolol Tartrate (Lopressor) 5 mg IVPUSH Q4H PRN PRN Reason: Tachycardia Metoprolol Tartrate (Lopressor) 25 mg PO BID [facility] Metoprolol Tartrate (Lopressor) 50 mg PO BID [facility] Last Admin: 09/01/17 08:19 Dose: 50 mg Montelukast Sodium (Singulair) 10 mg PO BEDTIME [facility] Last Admin: 08/31/17 20:12 Dose: 10 mg Morphine Sulfate (Morphine) 2 mg IVPUSH Q2H PRN PRN Reason: Pain (severe 7-10) Stop: 08/29/17 23:03 Umeclidinium Daisy 62.5 Mcg (Incruse Ellipta) 0 mcg IH DAILY [facility] Last Admin: 09/01/17 08:15 Dose: 1 mcg Ondansetron HCl (Zofran Odt) 4 mg PO Q6H PRN PRN Reason: nausea, able to take PO Ondansetron HCl (Zofran) 4 mg IV Q6H PRN PRN Reason: Nausea/Vomiting Pantoprazole Sodium (Protonix) 40 mg PO DAILY [facility] Last Admin: 09/01/17 08:18 Dose: 40 mg Pneumococcal Polyvalent Vaccine (Pneumovax 23) 0.5 ml IM .ONCE ONE Stop: 08/29/17 01:04 Polyethylene Glycol (Miralax) 17 gm PO DAILY PRN PRN Reason: Constipation Last Admin: 08/31/17 11:18 Dose: 17 gm Prednisone (Prednisone) 40 mg PO .Daily Taper [facility] Ranolazine (Ranexa) 500 mg PO BID [facility] Last Admin: 09/01/17 08:19 Dose: 500 mg Rosuvastatin Calcium (Crestor) 20 mg PO DAILY [facility] Last Admin: 09/01/17 08:19 Dose: 20 mg Saccharomyces Boulardii (Florastor) 250 mg PO BID [facility] Last Admin: 09/01/17 08:19 Dose: 250 mg Senna/Docusate Sodium (Senna Plus) 1 tab PO BID PRN PRN Reason: Constipation Last Admin: 08/30/17 05:57 Dose: 1 tab Sodium Chloride (Saline Flush) 10 ml FLUSH ASDIRECTED PRN PRN Reason: Keep Vein Open Last Admin: 08/28/17 17:38 Dose: 10 ml Tamsulosin HCl (Flomax) 0.4 mg PO BEDTIME [facility] Last Admin: 08/31/17 20:11 Dose: 0.4 mg Temazepam (Restoril) 7.5 mg PO BEDTIME PRN PRN Reason: Sleep - Exam Quality Assessment: Reports: DVT Prophylaxis General: Reports: Alert, Oriented, Cooperative, No Acute Distress HEENT: Reports: Pupils Equal, Pupils Reactive, EOMI Neck: Reports: Supple, Trachea Midline, No JVD Lungs: Reports: Normal Respiratory Effort Cardiovascular: Reports: Regular Rate, Regular Rhythm GI/Abdominal Exam: Normal Bowel Sounds, Soft, Non-Tender, No Organomegaly (Male) Exam: Deferred Rectal (Males) Exam: Deferred Back Exam: Reports: Normal Inspection Skin: Reports: Warm Neurological: Reports: No New Focal Deficit, Normal Gait, Normal Speech Psy/Mental Status: Reports: Alert, Normal Affect, Normal Mood *Q Meaningful Use (DIS) - VTE *Q VTE Criteria *Q: - Stroke *Q Stroke Criteria *Q: - AMI *Q AMI Criteria *Q:
== END 2017-09-01 10:45 | disposition home or self-care (01) | DRG 190 ==
LOC: JD.ED 15:54 → JD.MS 19:03
PROVIDERS: ADMIT Internal Medicine Cardiovascular Disease; ATTEND Internal Medicine Cardiovascular Disease
DX: J44.0 Chronic obstructive pulmonary disease with (acute) lower respiratory infection (principal); J18.9 Pneumonia, unspecified organism; J44.1 Chronic obstructive pulmonary disease with (acute) exacerbation; Z87.891 Personal history of nicotine dependence; R74.8 Abnormal levels of other serum enzymes; R09.02 Hypoxemia; I25.2 Old myocardial infarction; Z95.5 Presence of coronary angioplasty implant and graft; I12.9 Hypertensive chronic kidney disease with stage 1 through stage 4 chronic kidney disease, or unspecified chronic kidney disease; E11.22 Type 2 diabetes mellitus with diabetic chronic kidney disease; N18.3 Chronic kidney disease, stage 3 (moderate); Z79.4 Long term (current) use of insulin; K21.9 Gastro-esophageal reflux disease without esophagitis; G89.29 Other chronic pain; M54.5 Low back pain; M19.90 Unspecified osteoarthritis, unspecified site; R51 Headache; E83.42 Hypomagnesemia; H54.7 Unspecified visual loss; E78.5 Hyperlipidemia, unspecified; Z86.73 Personal history of transient ischemic attack (TIA), and cerebral infarction without residual deficits; Z88.8 Allergy status to other drugs, medicaments and biological substances; Z79.02 Long term (current) use of antithrombotics/antiplatelets; Z79.82 Long term (current) use of aspirin; Z99.81 Dependence on supplemental oxygen; Z79.899 Other long term (current) drug therapy
CPT/HCPCS: 36415; 71045; 71045-26; 71046; 71046-26; 80048; 80053; 81001; 82553; 82947; 82962; 83880; 84484; 85025; 86140; 86738; 87040; 87070; 87205; 87899; 93005; 93010; 94640; 94664; 94667; 94761; 96365; 96366; 97110-GO; 97116-GP; 97162-GP; 97166-GO; 97530-GO; 97530-GP; 97535-GO; 99285; 99285-25; A9270; A9270-GY; J0360; J1815-GY; J1956; J2920; J2930; J7030; J7050

== ENCOUNTER 2018-01-26 15:42 | Inpatient (IN) | payer MEDICARE, MEDICAID ==
[2018-01-26] MEDS ORDERED: Albuterol 0.083% 2.5 MG/3 ML Neb Soln NEB ONE (16:33)
[2018-01-26] MEDS ORDERED: Sodium Chloride 0.9% 10 ML Syringe FLUSH PRN (16:35)
--- NOTE | 2018-01-26 16:44 | EDM.PDOC ---
ED HPI GENERAL MEDICAL PROBLEM - General Chief Complaint: Chest Pain Stated Complaint: [facility] Time Seen by Provider: 01/26/18 16:30 Source of Information: Reports: Patient History Limitations: Reports: No Limitations - History of Present Illness INITIAL COMMENTS - FREE TEXT/NARRATIVE: Patient is chronically on O2 and as of the past 2 days has noticed increasing shortness of breath, productive cough with greenish sputum, intermittent chest pain with coughing, and fever at times. Patient has a history of COPD and is concerned he may have pneumonia. States he feels weak at times. Denies chest pain, n/v, dysuria, pnd, orthopnea, increased swelling to legs, increased weight, and or known sick exposures. Middle Chest Pain Score (Numeric/FACES): 6 - Related Data Allergies Allergy/AdvReac Type Severity Reaction Status Date / Time glipizide [From Glucotrol] Allergy Other Verified 01/26/18 21:30 ibuprofen Allergy Other Verified 01/26/18 21:30 metformin Allergy Other Verified 01/26/18 21:30 pioglitazone [From Actos] Allergy Other Verified 01/26/18 21:30 codeine AdvReac Nausea and Verified 01/26/18 21:30 Vomiting fish oil AdvReac Nausea and Verified 01/26/18 21:30 Vomiting Home Meds: Home Meds Aspirin [Adult Low Dose Aspirin EC] 81 mg PO DAILY 03/05/14 [History] Clopidogrel [Plavix] 75 mg PO DAILY 03/05/14 [History] Isosorbide Mononitrate [Imdur] 120 mg PO DAILY 03/05/14 [History] Nitroglycerin [Nitrostat] 0.4 mg SL ASDIRECTED PRN 03/05/14 [History] Polyethylene Glycol 1000 [Polyethylene Glycol] 1 scoop PO ASDIRECTED 03/05/14 [ History] Acetaminophen [Acetaminophen Extra Strength] 1,000 mg PO BID PRN 10/15/14 [ History] Insulin Aspart [Novolog Flexpen] 14 unit SQ TIDMEALS 10/15/14 [History] Ranolazine [Ranexa] 500 mg PO BID 12/28/14 [History] Fluticasone Propionate [Flonase] 2 spray NS DAILY 03/30/16 [History] Pantoprazole [ProTONIX] 40 mg PO DAILY 03/30/16 [History] Antacids 1 tab PO ASDIRECTED 06/30/16 [History] Budesonide [Pulmicort] 0.25 mg INH BID 06/30/16 [History] Furosemide [Lasix] 40 mg PO DAILY 06/30/16 [History] Levothyroxine Sodium [Synthroid] 50 mcg PO DAILY 06/30/16 [History] Montelukast [Singulair] 10 mg PO BEDTIME 06/30/16 [History] Ondansetron [Zofran ODT] 4 mg PO TID PRN 06/30/16 [History] Rosuvastatin [Crestor] 20 mg PO DAILY 06/30/16 [History] Tamsulosin [Flomax] 0.8 mg PO BEDTIME 06/30/16 [History] Captopril 50 mg PO BIDAC 06/17/17 [History] Gabapentin [Neurontin] 300 mg PO BID 06/17/17 [History] Umeclidinium [place] [Incruse Ellipta*] 62.5 mcg IH DAILY 06/17/17 [History] Apixaban [Eliquis] 5 mg PO BID 08/28/17 [History] Insulin Glargine,Hum.Rec.Anlog [Basaglar Kwikpen U-100] 42 units SQ BID [History] Mineral Oil/Petrolatum Oint [Lacri-Lube S.O.P Oint] 3.5 gm EYEBOTH BEDTIME 08/28 [History] Triamcinolone Acetonide [Triamcinolone Acetonide 0.1% Crm] 1 applic TOP DAILY PRN 08/29/17 [History] Metoprolol Tartrate [Lopressor] 50 mg PO BID #60 tablet 09/01/17 [Rx] Arformoterol [Brovana] 15 mcg NEB BID 01/27/18 [History] Gabapentin [Neurontin] 100 mg PO BID 01/27/18 [History] Mupirocin Calcium [Mupirocin] 1 applic TOP BID 01/27/18 [History] Past Medical History HEENT History: Reports: Impaired Vision Other HEENT History: wears glasses Cardiovascular History: Reports: High Cholesterol, Hypertension, [place] Respiratory History: Reports: COPD, SOB, Other (See Below) Other Respiratory History: emphasema Gastrointestinal History: Reports: GERD Genitourinary History: Reports: None Musculoskeletal History: Reports: Back Pain, Chronic, Osteoarthritis Neurological History: Reports: Headaches, Chronic Other Neuro History: Stroke in 1971 Endocrine/Metabolic History: Reports: Diabetes, Type II Hematologic History: Reports: None Other Hematologic History: hypomagnesemia Oncologic (Cancer) History: Reports: None Dermatologic History: Reports: None Other Dermatologic History: seborrheic keratosis - Infectious Disease History Infectious Disease History: Reports: Influenza, Measles - Past Surgical History Head Surgeries/Procedures: Reports: None Cardiovascular Surgical History: Reports: Coronary Artery Stent GI Surgical History: Reports: Colonoscopy Social & Family History - Family History Family Medical History: Noncontributory - Tobacco Use Smoking Status *Q: Former Smoker Used Tobacco, but Quit: Yes Month/Year Tobacco Last Used: 6 years ago - Caffeine Use Caffeine Use: Reports: Coffee, Soda, Tea ED ROS GENERAL - Review of Systems Review Of Systems: ROS reveals no pertinent complaints other than HPI. ED EXAM, GENERAL - Physical Exam Exam: See Below Exam Limited By: No Limitations General Appearance: Alert, WD/WN, No Apparent Distress Ears: Hearing Grossly Normal Nose: Normal Inspection Throat/Mouth: Normal Voice, No Airway Compromise Neck: Normal Inspection, Supple Respiratory/Chest: No Respiratory Distress, Normal Breath Sounds, No Accessory Muscle Use, Rhonchi (right upper/middle lung miranda), Wheezing, Prolonged Expiration Cardiovascular: Normal Peripheral Pulses, Regular Rate, Rhythm Peripheral Pulses: 4+: Radial (L) GI/Abdominal: Normal Bowel Sounds, Soft, Non-Tender, No Organomegaly, No Distention Back Exam: Normal Inspection Extremities: Normal Range of Motion, Non-Tender, Pedal Edema (1+ lower extremity bilateral) Neurological: Alert, Oriented, CN II-XII Intact, Normal Cognition, No Motor/ Sensory Deficits Psychiatric: Normal Affect, Normal Mood Skin Exam: Warm, Dry, Intact, Normal Color, No Rash Course - Vital Signs Last Recorded V/S: Last Vital Signs Temp 98.3 F 01/27/18 23:13 Pulse 90 01/27/18 23:13 Resp 20 01/27/18 23:13 BP 182/74 H 01/27/18 23:13 Pulse Ox 93 L 01/27/18 23:13 - Orders/Labs/Meds Orders: Medication Orders Acetaminophen (Tylenol) 650 mg PO Q4H PRN PRN Reason: Pain/Fever Last Admin: 01/26/18 22:56 Dose: 650 mg Al Hydroxide/Mg Hydroxide (Mag-Al Plus) 30 ml PO Q4H PRN PRN Reason: Heartburn Last Admin: 01/27/18 09:42 Dose: 30 ml Admin: 01/26/18 22:53 Dose: 30 ml Albuterol (Proventil Neb Soln) 2.5 mg NEB Q4HRRT PRN PRN Reason: Shortness of Breath Last Admin: 01/26/18 22:58 Dose: 2.5 mg Albuterol/Ipratropium (Duoneb 3.0-0.5 Mg/3 Ml) 3 ml NEB Q6HRRT [facility] Last Admin: 01/27/18 14:58 Dose: 3 ml Apixaban (Eliquis) 5 mg PO BID [facility] Last Admin: 01/27/18 11:31 Dose: 5 mg Aspirin (Halfprin) 81 mg PO DAILY [facility] Budesonide (Pulmicort) 0.25 mg INH BIDRT [facility] Captopril (Capoten) 50 mg PO BIDAC [facility] Last Admin: 01/27/18 16:39 Dose: 50 mg Clopidogrel Bisulfate (Plavix) 75 mg PO DAILY [facility] Dextrose/Water (Dextrose 50% In Water) 50 ml IVPUSH ASDIRECTED PRN PRN Reason: Hypoglycemia Enoxaparin Sodium (Lovenox) 120 mg SUBCUT DAILY [facility] Flunisolide (Nasalide Nasal [place]) 0 ml GISEL BID [facility] Furosemide (Lasix) 40 mg PO DAILY [facility] Gabapentin (Neurontin) 100 mg PO BID [facility] Gabapentin (Neurontin) 300 mg PO BID [facility] Guaifenesin/Phenylephrine HCl (Robitussin Dm) 10 ml PO Q4H PRN PRN Reason: Cough Last Admin: 01/27/18 14:52 Dose: 10 ml Hydralazine HCl (Apresoline) 20 mg IVPUSH Q6H PRN PRN Reason: Hypertension Last Admin: 01/27/18 08:28 Dose: 20 mg Admin: 01/26/18 22:33 Dose: 20 mg Doxycycline Hyclate 100 mg/ (Sodium Chloride) 100 mls @ 100 mls/hr IV Q12H [facility] Last Admin: 01/27/18 18:10 Dose: 100 mls/hr Infusion: 01/27/18 07:15 Dose: 100 mls/hr Admin: 01/27/18 06:15 Dose: 100 mls/hr Insulin Aspart (Novolog) 0 unit SUBCUT QIDACANDBED [facility]; Protocol Last Admin: 01/27/18 18:09 Dose: 15 units Admin: 01/27/18 12:18 Dose: Admin: 01/27/18 08:14 Dose: 8 units Admin: 01/26/18 22:45 Dose: 2 units Insulin Detemir (Levemir) 42 unit SUBCUT BID [facility] Isosorbide Mononitrate (Imdur) 120 mg PO DAILY [facility] Levothyroxine Sodium (Synthroid) 50 mcg PO ACBREAKFAST [facility] Methylprednisolone Sodium Succinate (Solu-Medrol) 80 mg IVPUSH Q12H [facility] Last Admin: 01/27/18 08:16 Dose: 80 mg Admin: 01/26/18 22:38 Dose: 80 mg Metoprolol Tartrate (Lopressor) 50 mg PO BID [facility] Metoprolol Tartrate (Lopressor) 5 mg IVPUSH Q6H PRN PRN Reason: Heart Rate Montelukast Sodium (Singulair) 10 mg PO BEDTIME [facility] Nitroglycerin (Nitrostat) 0.4 mg SL Q5M PRN PRN Reason: Chest Pain Last Admin: 01/27/18 10:57 Dose: 0.4 mg Pantoprazole Sodium (Protonix) 40 mg PO DAILY [facility] Arformoterol 15 Mcg 0 each NEB BID [facility] Mineral Oil/Petrolatum Oint 3.5 Gm 0 each EYEBOTH BEDTIME [facility] Umeclidinium [place] (62.5 Mcg) 0 each INH DAILY [facility] Polyethylene Glycol (Miralax) 17 gm PO DAILY PRN PRN Reason: Constipation Last Admin: 01/27/18 18:24 Dose: 17 gm Ranolazine (Ranexa) 500 mg PO BID [facility] Rosuvastatin Calcium (Crestor) 20 mg PO BEDTIME [facility] Saccharomyces Boulardii (Florastor) 500 mg PO DAILY [facility] Last Admin: 01/27/18 12:10 Dose: 500 mg Sodium Chloride (Saline Flush) 10 ml FLUSH ASDIRECTED PRN PRN Reason: Keep Vein Open Last Admin: 01/26/18 17:02 Dose: 10 ml Tamsulosin HCl (Flomax) 0.8 mg PO BEDTIME [facility] Triamcinolone Acetonide (Triamcinolone Acetonide 0.1% Crm) 0 gm TOP DAILY PRN PRN Reason: Rash Labs: Laboratory Tests 01/26/18 01/26/18 01/26/18 Range/Units 17:07 17:07 17:07 WBC 11.36 H (4.23-9.07) K/mm3 RBC 3.80 L (4.63-6.08) M/mm3 Hgb 10.5 L (13.7-17.5) gm/L Hct 34.4 L (40.1-51.0) % MCV 90.5 (79.0-92.2) fl MCH 27.6 (25.7-32.2) pg MCHC 30.5 L (32.2-35.5) g/dl RDW Std Deviation 50.8 H (35.1-43.9) fL Plt Count 153 L (163-337) K/mm3 MPV 10.8 (9.4-12.3) fl Neutrophils % (Manual) 78 H (40-60) % Band Neutrophils % 3 (0-10) % Lymphocytes % (Manual) 14 L (20-40) % Atypical Lymphs % 0 % Monocytes % (Manual) 5 (2-10) % Eosinophils % (Manual) 0 L (0.8-7.0) % Basophils % (Manual) 0 L (0.2-1.2) Toxic Granulation See note Platelet Estimate Adequate Plt Morphology Comment Normal Polychromasia 1+ slight Basophilic Stippling 1+ slight Anisocytosis 1+ slight RBC Morph Comment Not Reportable Sodium 140 (136-145) mEq/L Potassium 3.9 (3.5-5.1) mEq/L Chloride 101 (98-107) mEq/L Carbon Dioxide 35 H (21-32) mEq/L Anion Gap 7.9 (5-15) BUN 18 (7-18) mg/dL Creatinine 1.6 H (0.7-1.3) mg/dL Est Cr Clr Drug Dosing 46.21 mL/min Estimated GFR (MDRD) 42 (>60) mL/min BUN/Creatinine Ratio 11.3 L (14-18) Glucose 90 (83-115) mg/dL Lactic Acid 1.1 (0.4-2.0) mmol/L Calcium 9.4 (8.5-10.1) mg/dL Total Bilirubin 1.1 H (0.2-1.0) mg/dL AST 14 L (15-37) U/L ALT 17 (16-63) U/L Alkaline Phosphatase 70 (46-116) U/L Troponin I < 0.017 (0.00-0.056) ng/mL C-Reactive Protein 4.1 H* (<1.0) mg/dL Total Protein 6.8 (6.4-8.2) g/dl Albumin 3.3 L (3.4-5.0) g/dl Globulin 3.5 gm/dL Albumin/Globulin Ratio 0.9 L (1-2) Mycoplasma pneumon IgM Positive H (NEGATIVE) Meds: Medications Generic Name Dose Route Start Last Admin Trade Name Freq PRN Reason Stop Dose Admin Acetaminophen 650 mg 01/26/18 22:27 01/26/18 22:56 Tylenol PO 650 mg Q4H PRN Administration Pain/Fever Al Hydroxide/Mg Hydroxide 30 ml 01/26/18 22:51 01/27/18 09:42 Mag-Al Plus PO 30 ml Q4H PRN Administration Heartburn Albuterol 2.5 mg 01/26/18 21:40 01/26/18 22:58 Proventil Neb Soln NEB 2.5 mg Q4HRRT PRN Administration Shortness of Breath Albuterol/Ipratropium 3 ml 01/27/18 15:00 01/27/18 14:58 Duoneb 3.0-0.5 Mg/3 Ml NEB 3 ml Q6HRRT [facility] Administration Apixaban 5 mg 01/27/18 11:00 01/27/18 11:31 Eliquis PO 5 mg BID [facility] Administration Aspirin 81 mg 01/28/18 09:00 Halfprin PO DAILY [facility] Budesonide 0.25 mg 01/27/18 21:00 Pulmicort INH BIDRT [facility] Captopril 50 mg 01/27/18 16:00 01/27/18 16:39 Capoten PO 50 mg BIDAC [facility] Administration Clopidogrel Bisulfate 75 mg 01/28/18 09:00 Plavix PO DAILY [facility] Dextrose/Water 50 ml 01/26/18 21:33 Dextrose 50% In Water IVPUSH ASDIRECTED PRN Hypoglycemia Enoxaparin Sodium 120 mg 01/27/18 22:09 Lovenox SUBCUT DAILY [facility] Flunisolide 0 ml 01/27/18 21:00 Nasalide Nasal [place] GISEL BID [facility] Furosemide 40 mg 01/28/18 09:00 Lasix PO DAILY [facility] Gabapentin 100 mg 01/27/18 21:00 Neurontin PO BID [facility] Gabapentin 300 mg 01/27/18 21:00 Neurontin PO BID [facility] Guaifenesin/Phenylephrine HCl 10 ml 01/26/18 21:37 01/27/18 14:52 Robitussin Dm PO 10 ml Q4H PRN Administration Cough Hydralazine HCl 20 mg 01/26/18 21:35 01/27/18 08:28 Apresoline IVPUSH 20 mg Q6H PRN Administration Hypertension Doxycycline Hyclate 100 mg/ 100 mls @ 100 mls/hr 01/27/18 06:00 01/27/18 18: 10 Sodium Chloride IV 100 mls/hr Q12H [facility] Administration Insulin Aspart 0 unit 01/26/18 22:00 01/27/18 18:09 Novolog SUBCUT 15 units QIDACANDBED [facility] Administration Protocol Insulin Detemir 42 unit 01/27/18 21:00 Levemir SUBCUT BID [facility] Isosorbide Mononitrate 120 mg 01/28/18 09:00 Imdur PO DAILY [facility] Levothyroxine Sodium 50 mcg 01/28/18 06:00 Synthroid PO ACBREAKFAST [facility] Methylprednisolone Sodium Succinate 80 mg 01/26/18 21:00 01/27/18 08:16 Solu-Medrol IVPUSH 80 mg Q12H [facility] Administration Metoprolol Tartrate 50 mg 01/27/18 21:00 Lopressor PO BID [facility] Metoprolol Tartrate 5 mg 01/27/18 23:56 Lopressor IVPUSH Q6H PRN Heart Rate Montelukast Sodium 10 mg 01/27/18 21:00 Singulair PO BEDTIME [facility] Nitroglycerin 0.4 mg 01/26/18 21:38 01/27/18 10:57 Nitrostat SL 0.4 mg Q5M PRN Administration Chest Pain Pantoprazole Sodium 40 mg 01/28/18 09:00 Protonix PO DAILY [facility] Arformoterol 15 Mcg 0 each 01/27/18 21:00 NEB BID [facility] Mineral Oil/ 0 each 01/27/18 21:00 Petrolatum Oint 3.5 EYEBOTH Gm BEDTIME [facility] Umeclidinium [place] 0 each 01/28/18 09:00 62.5 Mcg INH DAILY [facility] Polyethylene Glycol 17 gm 01/27/18 18:11 01/27/18 18:24 Miralax PO 17 gm DAILY PRN Administration Constipation Ranolazine 500 mg 01/27/18 21:00 Ranexa PO BID [facility] Rosuvastatin Calcium 20 mg 01/27/18 21:00 Crestor PO BEDTIME [facility] Saccharomyces Boulardii 500 mg 01/27/18 11:45 01/27/18 12:10 Florastor PO 500 mg DAILY [facility] Administration Sodium Chloride 10 ml 01/26/18 16:35 01/26/18 17:02 Saline Flush FLUSH 10 ml ASDIRECTED PRN Administration Keep Vein Open Tamsulosin HCl 0.8 mg 01/27/18 21:00 Flomax PO BEDTIME [facility] Triamcinolone Acetonide 0 gm 01/27/18 11:41 Triamcinolone Acetonide 0.1% Crm TOP DAILY PRN Rash Discontinued Medications Generic Name Dose Route Start Last Admin Trade Name Freq PRN Reason Stop Dose Admin Albuterol 2.5 mg 01/26/18 16:33 01/26/18 16:53 Proventil Neb Soln NEB 01/26/18 16:34 2.5 mg ONETIME ONE Administration Albuterol/Ipratropium 3 ml 01/26/18 21:40 01/27/18 09:53 Duoneb 3.0-0.5 Mg/3 Ml NEB 3 ml QID PRN Administration Shortness of Breath Apixaban 5 mg 01/27/18 21:00 Eliquis PO BID [facility] Budesonide 0.25 mg 01/27/18 06:00 01/27/18 06:44 Pulmicort NEB 0.25 mg BIDRT [facility] Administration Clopidogrel Bisulfate 75 mg 01/27/18 11:00 01/27/18 11:30 Plavix PO 75 mg DAILY [facility] Administration Clopidogrel Bisulfate Confirm 01/27/18 22:48 Plavix Administered 01/27/18 22:49 Dose 150 mg .ROUTE .STK-MED ONE Clopidogrel Bisulfate 150 mg 01/27/18 22:09 Plavix PO 01/27/18 22:10 ONETIME ONE Al Hydroxide/Mg Hydroxide 30 0 ml 01/27/18 11:10 01/27/18 11:28 ml/ Lidocaine HCl 15 ml PO 01/27/18 11:11 45 ml ONETIME ONE Administration Doxycycline Hyclate 200 mg 01/26/18 18:25 01/26/18 18:42 Vibramycin PO 01/26/18 18:26 200 mg ONETIME ONE Administration Doxycycline Hyclate Confirm 01/27/18 05:53 01/27/18 06:24 Vibramycin Administered 01/27/18 05:54 Not Given Dose 100 mg .ROUTE .STK-MED ONE Enoxaparin Sodium Confirm 01/27/18 22:48 Lovenox Administered 01/27/18 22:49 Dose 120 mg .ROUTE .STK-MED ONE Gabapentin 300 mg 01/27/18 21:00 Neurontin PO BEDTIME [facility] Ceftriaxone Sodium 2 gm/ 100 mls @ 100 mls/hr 01/26/18 18:22 01/26/18 18:42 Sodium Chloride IV 01/26/18 19:21 100 mls/hr ONETIME ONE Administration Sodium Chloride 1,000 mls @ 75 mls/hr 01/26/18 22:00 01/26/18 22:32 Sodium Chloride 0.45% IV 01/27/18 04:00 75 mls/hr ASDIRECTED [facility] Administration Magnesium Sulfate 2 gm/ Premix 50 mls @ 25 mls/hr 01/27/18 11:34 01/27/18 12: 10 IV 01/27/18 13:33 25 mls/hr ONETIME ONE Administration Sodium Chloride 1,000 mls @ 100 mls/hr 01/27/18 11:45 01/27/18 12:12 Normal Saline IV 01/27/18 21:44 100 mls/hr ASDIRECTED [facility] Administration Nitroglycerin/Dextrose Confirm 01/27/18 23:24 Nitroglycerin 25 Mg/D5w 250 Ml Administered 01/27/18 23:25 Dose 25 mg in 250 mls @ as directed .ROUTE .STK-MED ONE Insulin Aspart 14 unit 01/27/18 12:04 01/27/18 12:15 Novolog SUBCUT 01/27/18 12:05 14 units QIDACANDBED ONE Administration Insulin Detemir 20 unit 01/27/18 12:05 01/27/18 12:16 Levemir SUBCUT 01/27/18 12:06 20 units ONETIME ONE Administration Isosorbide Mononitrate 120 mg 01/27/18 11:00 01/27/18 11:32 Imdur PO 120 mg DAILY [facility] Administration Levothyroxine Sodium 50 mcg 01/27/18 06:00 01/27/18 13:18 Synthroid PO Not Given ACBREAKFAST [facility] Metoprolol Tartrate 50 mg 01/27/18 11:00 01/27/18 11:32 Lopressor PO 50 mg Q12HR [facility] Administration Montelukast Sodium 10 mg 01/27/18 21:00 Singulair PO BEDTIME [facility] Morphine Sulfate Confirm 01/27/18 23:24 Morphine Administered 01/27/18 23:25 Dose 2 mg .ROUTE .STK-MED ONE Nitroglycerin 0.4 mg 01/27/18 10:43 01/27/18 10:48 Nitrostat SL 01/27/18 10:44 0.4 mg ONETIME ONE Administration Nitroglycerin 0.4 mg 01/27/18 11:41 Nitrostat SL ASDIRECTED PRN Chest Pain Non-Formulary Medication 1 scoop 01/27/18 11:45 Polyethylene Glycol 1000 [Polyethylene Glycol] PO ASDIRECTED [facility] Ondansetron HCl Confirm 01/27/18 23:24 Zofran Administered 01/27/18 23:25 Dose 4 mg .ROUTE .STK-MED ONE Pantoprazole Sodium 40 mg 01/27/18 11:00 01/27/18 11:30 Protonix PO 40 mg DAILY [facility] Administration Ranolazine 500 mg 01/27/18 11:00 01/27/18 11:31 Ranexa PO 500 mg BID [facility] Administration Rosuvastatin Calcium 20 mg 01/28/18 09:00 Crestor PO DAILY [facility] Tamsulosin HCl 0.4 mg 01/27/18 11:00 01/27/18 11:30 Flomax PO 0.4 mg BIDPC [facility] Administration - Re-Assessments/Exams Free Text/Narrative Re-Assessment/Exam: IV established. Ordered albuterol neb treatment 2.5 mg. Initial labs and studies include CBC, chem 14, CRP, blood cultures 2, sputum culture, mycoplasma pneumonia, strep pneumonia, troponin, chest x-ray two-view, EKG. On examination patient coughed up a large greenish chunky sputum. EKG sinus rhythm at a rate of 75. Q waves in leads V1 and V2. Old anterior septal LA. Borderline first-degree AV block. Occasional PAC. QT is mildly prolonged. Diffuse repolarization abnormality. Labs reviewed: White blood cell count 11.36, hemoglobin is 10.5, platelet count 153, neutrophil percentage is 78 with no left shift. She panel revealed creatinine 1.6, troponin less than 0.017, CRP 4.1. Mycoplasma was positive. Chest x-ray reviewed with Dr. Montes questional anterior infiltration noted of the left lower lung. Patient has Mycoplasma pneumonia. Ordered some Rocephin 2 g IV along with doxycycline 200 mg by mouth. Initially was going to order azithromycin 500mg po. Patient is on metoprolol with last EKG revealing prolonged QT interval. Thus opted to use doxycycline. 01/26/18 19:[address] Aguilar. Requests lactic acid. This was completed on initial admission. Results of 1934 Dr. Aguilar has evaluated the patient and has accepted the patient. Departure - Departure Time of Disposition: 18:21 Disposition: Admitted As Inpatient 66 Condition: Fair Clinical Impression: Mycoplasma pneumonia Qualifiers: Laterality: left Lung location: lower lobe of lung Qualified Code(s): J15.7 - Pneumonia due to Mycoplasma pneumoniae - Discharge Information
[2018-01-26] MEDS ORDERED: cefTRIAXone 2 GM in Sodium Chloride 0.9% 100 ML IV ONE (18:22)
[2018-01-26] MEDS ORDERED: Doxycycline 100 MG Cap PO ONE (18:25)
--- NOTE | 2018-01-26 21:17 | PCM.HP ---
H&P History of Present Illness - General Date of Service: 01/26/18 Admit Problem/Dx: Admission Diagnosis/Problem Admission Diagnosis/Problem Pneumonia due to Mycoplasma pneumoniae Source of Information: Patient, Provider History Limitations: Reports: No Limitations - History of Present Illness Initial Comments - Free Text/Narative: 77 year old male with PMH of COPD, DM type 2 , CAD (on high dose nitrates and Ranexa) presents with a 2 day history of SOB. This is associated with a productive cough with greenish sputum. He has been febrile without known temperature elevation at home. In the ED, he had systolic hypertension, no tachycardia; the pulse documented was 85 with a respiratory rate of 15. Documented O2 sat was 93% on ~3l/m. lab work documeted a positive mycoplasma pneumonia; lactic acid was 1.1. CXR developing LLL PNA; the patient received Oral doxycyline and rocephin IV. he is a full code and will be admitted to [facility]. Last hospitalization for respiratory infection was 08/2017. Onset of Symptoms: Reports: Gradual Symptom Onset Date: 01/24/18 Duration of Symptoms: Reports: Day(s):, Getting Worse Location: Reports: Chest, Generalized Quality: Reports: Same as Previous Episode Severity: Moderate Improves with: Reports: Medication Worsens with: Reports: None Context: Reports: Sick Contact (unknown) Associated Symptoms: Reports: Chest Pain, cough w sputum, Nausea/Vomiting, Shortness of Breath, Weakness Middle Chest Pain Score (Numeric/FACES): 6 - Related Data Allergies/Adverse Reactions: Allergies Allergy/AdvReac Type Severity Reaction Status Date / Time glipizide [From Glucotrol] Allergy Other Verified 01/26/18 21:30 ibuprofen Allergy Other Verified 01/26/18 21:30 metformin Allergy Other Verified 01/26/18 21:30 pioglitazone [From Actos] Allergy Other Verified 01/26/18 21:30 codeine AdvReac Nausea and Verified 01/26/18 21:30 Vomiting fish oil AdvReac Nausea and Verified 01/26/18 21:30 Vomiting Home Medications: Home Meds Aspirin [Adult Low Dose Aspirin EC] 81 mg PO DAILY 03/05/14 [History] Clopidogrel [Plavix] 75 mg PO DAILY 03/05/14 [History] Isosorbide Mononitrate [Imdur] 120 mg PO DAILY 03/05/14 [History] Nitroglycerin [Nitrostat] 0.4 mg SL ASDIRECTED PRN 03/05/14 [History] Polyethylene Glycol 1000 [Polyethylene Glycol] 1 scoop PO ASDIRECTED 03/05/14 [ History] Acetaminophen [Acetaminophen Extra Strength] 1,000 mg PO BID PRN 10/15/14 [ History] Insulin Aspart [Novolog Flexpen] 14 unit SQ TIDMEALS 10/15/14 [History] Ranolazine [Ranexa] 500 mg PO BID 12/28/14 [History] Fluticasone Propionate [Flonase] 2 spray NS DAILY 03/30/16 [History] Pantoprazole [ProTONIX] 40 mg PO DAILY 03/30/16 [History] Antacids 1 tab PO ASDIRECTED 06/30/16 [History] Budesonide [Pulmicort] 0.25 mg INH BID 06/30/16 [History] Furosemide [Lasix] 40 mg PO DAILY 06/30/16 [History] Levothyroxine Sodium [Synthroid] 50 mcg PO DAILY 06/30/16 [History] Montelukast [Singulair] 10 mg PO BEDTIME 06/30/16 [History] Ondansetron [Zofran ODT] 4 mg PO TID PRN 06/30/16 [History] Rosuvastatin [Crestor] 20 mg PO DAILY 06/30/16 [History] Tamsulosin [Flomax] 0.8 mg PO BEDTIME 06/30/16 [History] Captopril 50 mg PO BIDAC 06/17/17 [History] Gabapentin [Neurontin] 300 mg PO BID 06/17/17 [History] Umeclidinium [place] [Incruse Ellipta*] 62.5 mcg IH DAILY 06/17/17 [History] Apixaban [Eliquis] 5 mg PO BID 08/28/17 [History] Insulin Glargine,Hum.Rec.Anlog [Basaglar Kwikpen U-100] 42 units SQ BID [History] Mineral Oil/Petrolatum Oint [Lacri-Lube S.O.P Oint] 3.5 gm EYEBOTH BEDTIME 08/28 [History] Triamcinolone Acetonide [Triamcinolone Acetonide 0.1% Crm] 1 applic TOP DAILY PRN 08/29/17 [History] Metoprolol Tartrate [Lopressor] 50 mg PO BID #60 tablet 09/01/17 [Rx] Arformoterol [Brovana] 15 mcg NEB BID 01/27/18 [History] Ciprofloxacin HCl [Cipro] 500 mg PO TID 01/27/18 [History] Gabapentin [Neurontin] 100 mg PO BID 01/27/18 [History] Mupirocin Calcium [Mupirocin] 1 applic TOP BID 01/27/18 [History] Past Medical History HEENT History: Reports: Impaired Vision Other HEENT History: wears glasses Cardiovascular History: Reports: High Cholesterol, Hypertension, [place] Respiratory History: Reports: COPD, SOB, Other (See Below) Other Respiratory History: emphasema Gastrointestinal History: Reports: GERD Genitourinary History: Reports: None Musculoskeletal History: Reports: Back Pain, Chronic, Osteoarthritis Neurological History: Reports: Headaches, Chronic Other Neuro History: Stroke in 1971 Endocrine/Metabolic History: Reports: Diabetes, Type II Hematologic History: Reports: None Other Hematologic History: hypomagnesemia Oncologic (Cancer) History: Reports: None Dermatologic History: Reports: None Other Dermatologic History: seborrheic keratosis - Infectious Disease History Infectious Disease History: Reports: Influenza, Measles - Past Surgical History Head Surgeries/Procedures: Reports: None Cardiovascular Surgical History: Reports: Coronary Artery Stent GI Surgical History: Reports: Colonoscopy Social & Family History - Family History Family Medical History: Noncontributory - Tobacco Use Smoking Status *Q: Former Smoker Used Tobacco, but Quit: Yes Month/Year Tobacco Last Used: 6 years ago - Caffeine Use Caffeine Use: Reports: Coffee, Soda, Tea H&P Review of Systems - Review of Systems: Review Of Systems: ROS reveals no pertinent complaints other than HPI. Exam - Exam Exam: See Below - Vital Signs Vital Signs: Last Vital Signs Temp 37.0 C 01/26/18 15:48 Pulse 81 01/26/18 15:48 Resp 15 01/26/18 15:48 BP 185/64 H 01/26/18 15:48 Pulse Ox 93 L 01/26/18 16:33 Weight: 113.852 kg - Exam Quality Assessment: Supplemental Oxygen, DVT Prophylaxis General: Alert, Oriented, Cooperative HEENT: Conjunctiva Clear, Nares Patent, Normal Nasal Septum, Pupils Equal, Pupils Reactive, PERRLA Neck: Trachea Midline Lungs: Normal Respiratory Effort, Decreased Breath Sounds, Rhonchi, Wheezing Cardiovascular: Regular Rate, Irregular Rhythm GI/Abdominal Exam: Normal Bowel Sounds, Soft, Non-Tender, No Organomegaly, No Distention (Male) Exam: Deferred Rectal (Males) Exam: Deferred Back Exam: Normal Inspection Extremities: Normal Inspection, Non-Tender, Slow Capillary Refill Skin: Warm Neurological: Cranial Nerves Intact, Normal Speech Neuro Extensive - Mental Status: Alert, Oriented x3, Normal Mood/Affect, Normal Cognition, Memory Intact - Patient Data Lab Results Last 24 hrs: Laboratory Results - last 24 hr 01/26/18 01/26/18 01/26/18 Range/Units 17:07 17:07 17:07 WBC 11.36 H (4.23-9.07) K/mm3 RBC 3.80 L (4.63-6.08) M/mm3 Hgb 10.5 L (13.7-17.5) gm/L Hct 34.4 L (40.1-51.0) % MCV 90.5 (79.0-92.2) fl MCH 27.6 (25.7-32.2) pg MCHC 30.5 L (32.2-35.5) g/dl RDW Std Deviation 50.8 H (35.1-43.9) fL Plt Count 153 L (163-337) K/mm3 MPV 10.8 (9.4-12.3) fl Neutrophils % (Manual) 78 H (40-60) % Band Neutrophils % 3 (0-10) % Lymphocytes % (Manual) 14 L (20-40) % Atypical Lymphs % 0 % Monocytes % (Manual) 5 (2-10) % Eosinophils % (Manual) 0 L (0.8-7.0) % Basophils % (Manual) 0 L (0.2-1.2) Toxic Granulation See note Platelet Estimate Adequate Plt Morphology Comment Normal Polychromasia 1+ slight Basophilic Stippling 1+ slight Anisocytosis 1+ slight RBC Morph Comment Not Reportable Sodium 140 (136-145) mEq/L Potassium 3.9 (3.5-5.1) mEq/L Chloride 101 (98-107) mEq/L Carbon Dioxide 35 H (21-32) mEq/L Anion Gap 7.9 (5-15) BUN 18 (7-18) mg/dL Creatinine 1.6 H (0.7-1.3) mg/dL Est Cr Clr Drug Dosing 46.21 mL/min Estimated GFR (MDRD) 42 (>60) mL/min BUN/Creatinine Ratio 11.3 L (14-18) Glucose 90 (83-115) mg/dL Lactic Acid 1.1 (0.4-2.0) mmol/L Calcium 9.4 (8.5-10.1) mg/dL Total Bilirubin 1.1 H (0.2-1.0) mg/dL AST 14 L (15-37) U/L ALT 17 (16-63) U/L Alkaline Phosphatase 70 (46-116) U/L Troponin I < 0.017 (0.00-0.056) ng/mL C-Reactive Protein 4.1 H* (<1.0) mg/dL Total Protein 6.8 (6.4-8.2) g/dl Albumin 3.3 L (3.4-5.0) g/dl Globulin 3.5 gm/dL Albumin/Globulin Ratio 0.9 L (1-2) Mycoplasma pneumon IgM Positive H (NEGATIVE) Result Diagrams: 01/27/18 06:10 01/27/18 06:10 - Problem List (1) Mycoplasma pneumonia SNOMED Code(s): 86620946 ICD Code: J15.7 - PNEUMONIA DUE TO MYCOPLASMA PNEUMONIAE Status: Acute Priority: High Current Visit: Yes Qualifiers: Laterality: left Lung location: lower lobe of lung Qualified Code(s): J15.7 - Pneumonia due to Mycoplasma pneumoniae (2) Acute exacerbation of chronic obstructive pulmonary disease (COPD) SNOMED Code(s): 025671847 ICD Code: J44.1 - CHRONIC OBSTRUCTIVE PULMONARY DISEASE W (ACUTE) EXACERBATION Status: Acute Priority: High Current Visit: Yes (3) Bradycardia SNOMED Code(s): 42011327 ICD Code: R00.1 - BRADYCARDIA, UNSPECIFIED Status: Acute Priority: Medium Current Visit: No (4) CHF, Congestive heart failure SNOMED Code(s): 34797269 ICD Code: I50.9 - HEART FAILURE, UNSPECIFIED Status: Chronic Priority: Medium Current Visit: No (5) Coronary angioplasty SNOMED Code(s): 24827203 - Coronary angioplasty Status: Chronic Priority: Medium Current Visit: No (6) Hypoxia SNOMED Code(s): 058561427 ICD Code: R09.02 - HYPOXEMIA Status: Acute Priority: High Current Visit : No (7) CKD (chronic kidney disease) stage 3, GFR 30-59 ml/min SNOMED Code(s): 111781875 ICD Code: N18.3 - CHRONIC KIDNEY DISEASE, STAGE 3 (MODERATE) Status: Chronic Priority: Medium Current Visit: No (8) Diabetes mellitus type 2 SNOMED Code(s): 90396121 ICD Code: E11.9 - TYPE 2 DIABETES MELLITUS WITHOUT COMPLICATIONS Status: Chronic Priority: Medium Current Visit: No (9) Hyperlipidemia SNOMED Code(s): 06207797 ICD Code: E78.5 - HYPERLIPIDEMIA, UNSPECIFIED Status: Chronic Priority: Medium Current Visit: No Problem List Initiated/Reviewed/Updated: Yes Orders Last 24hrs: Active Orders 24 hr Category Date Time Status Admission Status [Patient Status] [ADT] Routine ADT 01/26/18 19:57 Active Cardiac Monitoring [RC] . DIRECTED Care 01/26/18 19:57 Active EKG Documentation Completion [RC] ASDIRECTED Care 01/26/18 16:03 Active Peripheral IV Care [RC] . DIRECTED Care 01/26/18 16:35 Active RT Aerosol Therapy [RC] ASDIRECTED Care 01/26/18 16:33 Active CXR [Chest 2V] [CR] Stat Exams 01/26/18 16:32 Taken CULTURE BLOOD [BC] Stat Lab 01/26/18 17:07 Received CULTURE BLOOD [BC] Stat Lab 01/26/18 17:30 Received CULTURE SPUTUM + SMEAR [RM] Stat Lab 01/26/18 16:50 Ordered STREP PNEUMONIAE ANTIGEN [MREF] Stat Lab 01/26/18 17:08 Ordered Sodium Chloride 0.9% [Saline Flush] Med 01/26/18 16:35 Active 10 ml FLUSH ASDIRECTED PRN Blood Culture x2 Reflex Set [OM.PC] Stat Oth 01/26/18 16:32 Ordered Peripheral IV Insertion Adult [OM.PC] Routine Oth 01/26/18 16:35 Ordered EKG 12 Lead [EK] Stat Ther 01/26/18 16:02 Ordered Medication Orders Sodium Chloride (Saline Flush) 10 ml FLUSH ASDIRECTED PRN PRN Reason: Keep Vein Open Last Admin: 01/26/18 17:02 Dose: 10 ml Assessment/Plan Comment:: Impression: --Mycoplasma Pneumonia COPD (emphysema) on chronic O2 --CV disease Hx of CAD/UT on high dose nitrate with Ranaxa Hx of CVA, remote 1972 --GERD --CKD, stage III Chronic HTN HLD Hypothyroid Obesity Plan: IVF Doxycycline IV Nebs, scheduled and prn Pulmonary Toilet DVT/GI prophylaxis Home meds Daily labs Consult CM/PT/OT
[2018-01-26] MEDS ORDERED: 50% Dextrose in Water 50 ML Syringe IVPUSH PRN (21:33)
[2018-01-26] MEDS ORDERED: Albuterol 0.083% 2.5 MG/3 ML Neb Soln NEB PRN (21:40)
[2018-01-26] MEDS ORDERED: Albuterol/Ipratropium 3.0-0.5 MG/3 ML Neb Soln NEB PRN (21:40)
[2018-01-26] MEDS ORDERED: Sodium Chloride 0.45% 1,000 ML IV SCH (22:00)
[2018-01-26] MEDS ORDERED: Acetaminophen 325 MG Tab PO PRN (22:27)
[2018-01-26] MEDS: hydrALAZINE 20 MG/ML SDV IVPUSH PRN (22:33)
[2018-01-26] MEDS: methylPREDNISolone Sodium Succinate 40 MG/1 ML SDV IVPUSH SCH (22:38)
[2018-01-26] MEDS: Insulin Aspart 100 Units/ML 3 ML Pen SUBCUT SCH (22:45)
[2018-01-26] MEDS: Aluminum Hydroxide/Magnesium Hydroxide/Simethicone Susp 30 ML Cup PO PRN (22:53)
[2018-01-27] MEDS ORDERED: Levothyroxine 50 MCG Tab PO SCH (06:00)
[2018-01-27] MEDS ORDERED: Budesonide 0.25 MG/2 ML Neb Susp NEB SCH (06:00)
[2018-01-27] MEDS: Doxycycline 100 MG in Sodium Chloride 0.9% 100 ML IV SCH ×2 (06:15→18:10)
[2018-01-27] MEDS: Doxycycline 100 MG Vial ONE ×2 (06:23→06:24)
[2018-01-27] MEDS: Insulin Aspart 100 Units/ML 3 ML Pen SUBCUT SCH ×4 (08:14→22:10)
[2018-01-27] MEDS: methylPREDNISolone Sodium Succinate 40 MG/1 ML SDV IVPUSH SCH ×2 (08:16→22:10)
--- NOTE | 2018-01-27 08:23 | CR ---
Chest: Two views of the chest were obtained. Comparison: Prior chest x-ray of 08/30/17. Scarring is seen within both lung bases which is stable from prior chest x-ray. No acute parenchymal change is seen. Heart size is normal. Tortuous thoracic aorta is seen. Impression: 1. Stable scarring within both lung bases. Nothing acute is definitely appreciated. Diagnostic code #2
[2018-01-27] MEDS: hydrALAZINE 20 MG/ML SDV IVPUSH PRN ×2 (08:28→22:25)
[2018-01-27] MEDS: Aluminum Hydroxide/Magnesium Hydroxide/Simethicone Susp 30 ML Cup PO PRN (09:42)
[2018-01-27] MEDS ORDERED: Nitroglycerin 0.4 MG Tab.SL SL ONE (10:43)
[2018-01-27] MEDS: Nitroglycerin 0.4 MG Tab.SL SL PRN ×3 (10:57→22:59)
[2018-01-27] MEDS ORDERED: Isosorbide Mononitrate 60 MG Tab.ER PO SCH (11:00)
[2018-01-27] MEDS ORDERED: Tamsulosin 0.4 MG Cap.ER PO SCH ×2 (11:00→21:00)
[2018-01-27] MEDS ORDERED: Pantoprazole 40 MG Tab.CR PO SCH (11:00)
[2018-01-27] MEDS ORDERED: Metoprolol Tartrate 50 MG Tab PO SCH ×2 (11:00→21:00)
[2018-01-27] MEDS ORDERED: Clopidogrel 75 MG Tab PO SCH (11:00)
[2018-01-27] MEDS ORDERED: Alum Hydrox/Mag Hydrox/Simeth 30 ML, Lidocaine 2% 15 ML PO ONE ×2 (11:10)
--- NOTE | 2018-01-27 11:13 | PCM.PN ---
- General Info Date of Service: 01/27/18 Admission Dx/Problem (Free Text): Admission Diagnosis/Problem Admission Diagnosis/Problem Pneumonia due to Mycoplasma pneumoniae Subjective Update: In to see Steve. Nursing reported some "esophageal pain" per patient this AM. 12-lead EKG was obtained and ST changes were noted. Troponin and CKMB were obtained and elevated. Repeat is ordered. Chest pain resolved with GI cocktail. He is not having any chest pain now. He does have a long history of GERD and cardiac problems. Functional Status: Reports: Pain Controlled, Tolerating Diet, Ambulating, Urinating. Denies: New Symptoms - Review of Systems General: Reports: Weakness. Denies: Fever, Fatigue, Malaise Pulmonary: Reports: Shortness of Breath, Cough, Sputum Cardiovascular: Reports: Chest Pain (resolved ). Denies: Palpitations, Dyspnea on Exertion, Orthopnea, Edema Gastrointestinal: Reports: No Symptoms. Denies: Abdominal Pain, Constipation, Diarrhea, Nausea, Vomiting Genitourinary: Reports: No Symptoms Musculoskeletal: Reports: No Symptoms Skin: Reports: No Symptoms Neurological: Reports: No Symptoms Psychiatric: Reports: No Symptoms - Patient Data Vitals - Most Recent: Last Vital Signs Temp 97.9 F 01/27/18 03:47 Pulse 96 01/27/18 03:47 Resp 16 01/27/18 03:47 BP 141/64 H 01/27/18 10:57 Pulse Ox 97 01/27/18 09:54 Weight - Most Recent: 249 lb 14.4 oz I&O - Last 24 Hours: Intake & Output 01/26/18 01/27/18 01/27/18 22:59 06:59 14:59 Intake Total 500 420 Output Total 600 Balance -100 420 Lab Results Last 24 Hours: Laboratory Results - last 24 hr 01/26/18 01/26/18 01/26/18 Range/Units 17:07 17:07 17:07 WBC 11.36 H (4.23-9.07) K/mm3 RBC 3.80 L (4.63-6.08) M/mm3 Hgb 10.5 L (13.7-17.5) gm/L Hct 34.4 L (40.1-51.0) % MCV 90.5 (79.0-92.2) fl MCH 27.6 (25.7-32.2) pg MCHC 30.5 L (32.2-35.5) g/dl RDW Std Deviation 50.8 H (35.1-43.9) fL Plt Count 153 L (163-337) K/mm3 MPV 10.8 (9.4-12.3) fl Neut % (Auto) (34.0-67.9) % Lymph % (Auto) (21.8-53.1) % [place] % (Auto) (5.3-12.2) % Eos % (Auto) (0.8-7.0) Baso % (Auto) (0.1-1.2) % Neut # (Auto) (1.78-5.38) K/mm3 Lymph # (Auto) (1.32-3.57) K/mm3 [place] # (Auto) (0.30-0.82) K/mm3 Eos # (Auto) (0.04-0.54) K/mm3 Baso # (Auto) (0.01-0.08) K/mm3 Neutrophils % (Manual) 78 H (40-60) % Band Neutrophils % 3 (0-10) % Lymphocytes % (Manual) 14 L (20-40) % Atypical Lymphs % 0 % Monocytes % (Manual) 5 (2-10) % Eosinophils % (Manual) 0 L (0.8-7.0) % Basophils % (Manual) 0 L (0.2-1.2) Manual Slide Review Toxic Granulation See note Platelet Estimate Adequate Plt Morphology Comment Normal Polychromasia 1+ slight Basophilic Stippling 1+ slight Anisocytosis 1+ slight RBC Morph Comment Not Reportable Sodium 140 (136-145) mEq/L Potassium 3.9 (3.5-5.1) mEq/L Chloride 101 (98-107) mEq/L Carbon Dioxide 35 H (21-32) mEq/L Anion Gap 7.9 (5-15) BUN 18 (7-18) mg/dL Creatinine 1.6 H (0.7-1.3) mg/dL Est Cr Clr Drug Dosing 46.21 mL/min Estimated GFR (MDRD) 42 (>60) mL/min BUN/Creatinine Ratio 11.3 L (14-18) Glucose 90 (83-115) mg/dL POC Glucose (83-110) mg/dL Lactic Acid 1.1 (0.4-2.0) mmol/L Calcium 9.4 (8.5-10.1) mg/dL Magnesium (1.8-2.4) mg/dl Total Bilirubin 1.1 H (0.2-1.0) mg/dL AST 14 L (15-37) U/L ALT 17 (16-63) U/L Alkaline Phosphatase 70 (46-116) U/L Troponin I < 0.017 (0.00-0.056) ng/mL C-Reactive Protein 4.1 H* (<1.0) mg/dL Total Protein 6.8 (6.4-8.2) g/dl Albumin 3.3 L (3.4-5.0) g/dl Globulin 3.5 gm/dL Albumin/Globulin Ratio 0.9 L (1-2) Mycoplasma pneumon IgM Positive H (NEGATIVE) 01/26/18 01/27/18 01/27/18 Range/Units 22:36 06:10 06:10 WBC 13.95 H (4.23-9.07) K/mm3 RBC 4.09 L (4.63-6.08) M/mm3 Hgb 11.4 L (13.7-17.5) gm/L Hct 36.6 L (40.1-51.0) % MCV 89.5 (79.0-92.2) fl MCH 27.9 (25.7-32.2) pg MCHC 31.1 L (32.2-35.5) g/dl RDW Std Deviation 51.5 H (35.1-43.9) fL Plt Count 143 L (163-337) K/mm3 MPV 10.9 (9.4-12.3) fl Neut % (Auto) 94.1 H (34.0-67.9) % Lymph % (Auto) 2.3 L (21.8-53.1) % [place] % (Auto) 2.9 L (5.3-12.2) % Eos % (Auto) 0 L (0.8-7.0) Baso % (Auto) 0.1 (0.1-1.2) % Neut # (Auto) 13.14 H (1.78-5.38) K/mm3 Lymph # (Auto) 0.32 L (1.32-3.57) K/mm3 [place] # (Auto) 0.40 (0.30-0.82) K/mm3 Eos # (Auto) 0.00 L (0.04-0.54) K/mm3 Baso # (Auto) 0.01 (0.01-0.08) K/mm3 Neutrophils % (Manual) (40-60) % Band Neutrophils % (0-10) % Lymphocytes % (Manual) (20-40) % Atypical Lymphs % % Monocytes % (Manual) (2-10) % Eosinophils % (Manual) (0.8-7.0) % Basophils % (Manual) (0.2-1.2) Manual Slide Review Abnormal smear Toxic Granulation Platelet Estimate Plt Morphology Comment Polychromasia Basophilic Stippling Anisocytosis RBC Morph Comment Sodium 137 (136-145) mEq/L Potassium 4.0 (3.5-5.1) mEq/L Chloride 98 (98-107) mEq/L Carbon Dioxide 31 (21-32) mEq/L Anion Gap 12.0 (5-15) BUN 19 H (7-18) mg/dL Creatinine 1.7 H (0.7-1.3) mg/dL Est Cr Clr Drug Dosing 43.49 mL/min Estimated GFR (MDRD) 39 (>60) mL/min BUN/Creatinine Ratio 11.2 L (14-18) Glucose 346 H (83-115) mg/dL POC Glucose 173 H (83-110) mg/dL Lactic Acid (0.4-2.0) mmol/L Calcium 9.3 (8.5-10.1) mg/dL Magnesium 1.6 L (1.8-2.4) mg/dl Total Bilirubin (0.2-1.0) mg/dL AST (15-37) U/L ALT (16-63) U/L Alkaline Phosphatase (46-116) U/L Troponin I (0.00-0.056) ng/mL C-Reactive Protein 11.7 H* (<1.0) mg/dL Total Protein (6.4-8.2) g/dl Albumin (3.4-5.0) g/dl Globulin gm/dL Albumin/Globulin Ratio (1-2) Mycoplasma pneumon IgM (NEGATIVE) 01/27/18 01/27/18 Range/Units 06:10 06:18 WBC (4.23-9.07) K/mm3 RBC (4.63-6.08) M/mm3 Hgb (13.7-17.5) gm/L Hct (40.1-51.0) % MCV (79.0-92.2) fl MCH (25.7-32.2) pg MCHC (32.2-35.5) g/dl RDW Std Deviation (35.1-43.9) fL Plt Count (163-337) K/mm3 MPV (9.4-12.3) fl Neut % (Auto) (34.0-67.9) % Lymph % (Auto) (21.8-53.1) % [place] % (Auto) (5.3-12.2) % Eos % (Auto) (0.8-7.0) Baso % (Auto) (0.1-1.2) % Neut # (Auto) (1.78-5.38) K/mm3 Lymph # (Auto) (1.32-3.57) K/mm3 [place] # (Auto) (0.30-0.82) K/mm3 Eos # (Auto) (0.04-0.54) K/mm3 Baso # (Auto) (0.01-0.08) K/mm3 Neutrophils % (Manual) (40-60) % Band Neutrophils % (0-10) % Lymphocytes % (Manual) (20-40) % Atypical Lymphs % % Monocytes % (Manual) (2-10) % Eosinophils % (Manual) (0.8-7.0) % Basophils % (Manual) (0.2-1.2) Manual Slide Review Toxic Granulation Platelet Estimate Plt Morphology Comment Polychromasia Basophilic Stippling Anisocytosis RBC Morph Comment Sodium (136-145) mEq/L Potassium (3.5-5.1) mEq/L Chloride (98-107) mEq/L Carbon Dioxide (21-32) mEq/L Anion Gap (5-15) BUN (7-18) mg/dL Creatinine (0.7-1.3) mg/dL Est Cr Clr Drug Dosing mL/min Estimated GFR (MDRD) (>60) mL/min BUN/Creatinine Ratio (14-18) Glucose (83-115) mg/dL POC Glucose 337 H (83-110) mg/dL Lactic Acid 1.5 (0.4-2.0) mmol/L Calcium (8.5-10.1) mg/dL Magnesium (1.8-2.4) mg/dl Total Bilirubin (0.2-1.0) mg/dL AST (15-37) U/L ALT (16-63) U/L Alkaline Phosphatase (46-116) U/L Troponin I (0.00-0.056) ng/mL C-Reactive Protein (<1.0) mg/dL Total Protein (6.4-8.2) g/dl Albumin (3.4-5.0) g/dl Globulin gm/dL Albumin/Globulin Ratio (1-2) Mycoplasma pneumon IgM (NEGATIVE) Michael Results Last 24 Hours: Microbiology 01/26/18 16:50 Gram Stain - Preliminary Sputum - Expectorated Sputum Culture - Preliminary Gram Negative Coccobacilli Med Orders - Current: Current Medications Acetaminophen (Tylenol) 650 mg PO Q4H PRN PRN Reason: Pain/Fever Last Admin: 01/26/18 22:56 Dose: 650 mg Al Hydroxide/Mg Hydroxide (Mag-Al Plus) 30 ml PO Q4H PRN PRN Reason: Heartburn Last Admin: 01/27/18 09:42 Dose: 30 ml Albuterol (Proventil Neb Soln) 2.5 mg NEB Q4HRRT PRN PRN Reason: Shortness of Breath Last Admin: 01/26/18 22:58 Dose: 2.5 mg Albuterol/Ipratropium (Duoneb 3.0-0.5 Mg/3 Ml) 3 ml NEB QID PRN PRN Reason: Shortness of Breath Last Admin: 01/27/18 09:53 Dose: 3 ml Apixaban (Eliquis) 5 mg PO BID GUA[place]KO Budesonide (Pulmicort) 0.25 mg NEB BIDRT GUANAKO Last Admin: 01/27/18 06:44 Dose: 0.25 mg Clopidogrel Bisulfate (Plavix) 75 mg PO DAILY GUA[place] Al Hydroxide/Mg Hydroxide 30 (ml/ Lidocaine HCl 15 ml) 0 ml PO ONETIME ONE Stop: 01/27/18 11:11 Dextrose/Water (Dextrose 50% In Water) 50 ml IVPUSH ASDIRECTED PRN PRN Reason: Hypoglycemia Gabapentin (Neurontin) 300 mg PO BEDTIME GUANAKO Guaifenesin/Phenylephrine HCl (Robitussin Dm) 10 ml PO Q4H PRN PRN Reason: Cough Hydralazine HCl (Apresoline) 20 mg IVPUSH Q6H PRN PRN Reason: Hypertension Last Admin: 01/27/18 08:28 Dose: 20 mg Doxycycline Hyclate 100 mg/ (Sodium Chloride) 100 mls @ 100 mls/hr IV Q12H [facility] Last Admin: 01/27/18 06:15 Dose: 100 mls/hr Insulin Aspart (Novolog) 0 unit SUBCUT QIDACANDBED [facility]; Protocol Last Admin: 01/27/18 08:14 Dose: 8 units Isosorbide Mononitrate (Imdur) 120 mg PO DAILY [facility] Levothyroxine Sodium (Synthroid) 50 mcg PO ACBREAKFAST [facility] Methylprednisolone Sodium Succinate (Solu-Medrol) 80 mg IVPUSH Q12H [facility] Last Admin: 01/27/18 08:16 Dose: 80 mg Metoprolol Tartrate (Lopressor) 50 mg PO Q12HR [facility] Montelukast Sodium (Singulair) 10 mg PO BEDTIME [facility] Nitroglycerin (Nitrostat) 0.4 mg SL Q5M PRN PRN Reason: Chest Pain Last Admin: 01/27/18 10:57 Dose: 0.4 mg Pantoprazole Sodium (Protonix) 40 mg PO DAILY [facility] Ranolazine (Ranexa) 500 mg PO BID [facility] Rosuvastatin Calcium (Crestor) 20 mg PO BEDTIME [facility] Sodium Chloride (Saline Flush) 10 ml FLUSH ASDIRECTED PRN PRN Reason: Keep Vein Open Last Admin: 01/26/18 17:02 Dose: 10 ml Tamsulosin HCl (Flomax) 0.4 mg PO BIDPC [facility] Discontinued Medications Albuterol (Proventil Neb Soln) 2.5 mg NEB ONETIME ONE Stop: 01/26/18 16:34 Last Admin: 01/26/18 16:53 Dose: 2.5 mg Doxycycline Hyclate (Vibramycin) 200 mg PO ONETIME ONE Stop: 01/26/18 18:26 Last Admin: 01/26/18 18:42 Dose: 200 mg Doxycycline Hyclate (Vibramycin) Confirm Administered Dose 100 mg .ROUTE .STK- MED ONE Stop: 01/27/18 05:54 Last Admin: 01/27/18 06:24 Dose: Not Given Ceftriaxone Sodium 2 gm/ (Sodium Chloride) 100 mls @ 100 mls/hr IV ONETIME ONE Stop: 01/26/18 19:21 Last Admin: 01/26/18 18:42 Dose: 100 mls/hr Sodium Chloride (Sodium Chloride 0.45%) 1,000 mls @ 75 mls/hr IV ASDIRECTED [facility]UA[place]KO Stop: 01/27/18 04:00 Last Admin: 01/26/18 22:32 Dose: 75 mls/hr Nitroglycerin (Nitrostat) 0.4 mg SL ONETIME ONE Stop: 01/27/18 10:44 Last Admin: 01/27/18 10:48 Dose: 0.4 mg - Exam Quality Assessment: Supplemental Oxygen (baseline chronic ), DVT Prophylaxis General: Alert, Oriented, Cooperative, No Acute Distress HEENT: Pupils Equal, Pupils Reactive, EOMI, Mucous Membr. Moist/[place] Neck: Supple, Trachea Midline, No JVD Lungs: Normal Respiratory Effort, Decreased Breath Sounds, Rhonchi, Wheezing Cardiovascular: Regular Rate, Irregular Rhythm GI/Abdominal Exam: Normal Bowel Sounds, Soft, Non-Tender, No Distention (Male) Exam: Deferred Back Exam: Normal Inspection, Full Range of Motion Extremities: Normal Inspection, Normal Range of Motion, Non-Tender, No Pedal Edema, Normal Capillary Refill Peripheral Pulses: 2+: Radial (L), Radial (R), Posterior Tibial (L), Posterior Tibial (R), Dorsalis Pedis (L), Dorsalis Pedis (R) Skin: Warm, Dry, Intact Neurological: No New Focal Deficit Psy/Mental Status: Alert, Normal Affect, Normal Mood - Problem List & Annotations (1) Mycoplasma pneumonia SNOMED Code(s): 09835546 Code(s): J15.7 - PNEUMONIA DUE TO MYCOPLASMA PNEUMONIAE Status: Acute Priority: High Current Visit: Yes Qualifiers: Laterality: left Lung location: lower lobe of lung Qualified Code(s): J15.7 - Pneumonia due to Mycoplasma pneumoniae (2) Acute exacerbation of chronic obstructive pulmonary disease (COPD) SNOMED Code(s): 447334091 Code(s): J44.1 - CHRONIC OBSTRUCTIVE PULMONARY DISEASE W (ACUTE) EXACERBATION Status: Acute Priority: High Current Visit: Yes (3) CHF, Congestive heart failure SNOMED Code(s): 59301925 Code(s): I50.9 - HEART FAILURE, UNSPECIFIED Status: Chronic Priority: Medium Current Visit: No (4) Elevated troponin SNOMED Code(s): 792052734, 375681852, 526341936 Code(s): R74.8 - ABNORMAL LEVELS OF OTHER SERUM ENZYMES Status: Acute Priority: High Current Visit: Yes (5) Bradycardia SNOMED Code(s): 45433552 Code(s): R00.1 - BRADYCARDIA, UNSPECIFIED Status: Acute Priority: Medium Current Visit: No (6) Coronary angioplasty SNOMED Code(s): 07750552 - Coronary angioplasty Status: Chronic Priority: Medium Current Visit: No (7) Hypoxia SNOMED Code(s): 784376632 Code(s): R09.02 - HYPOXEMIA Status: Acute Priority: High Current Visit : No (8) CKD (chronic kidney disease) stage 3, GFR 30-59 ml/min SNOMED Code(s): 937017623 Code(s): N18.3 - CHRONIC KIDNEY DISEASE, STAGE 3 (MODERATE) Status: Chronic Priority: Medium Current Visit: No (9) COPD (chronic obstructive pulmonary disease) with chronic bronchitis SNOMED Code(s): 430508641 Code(s): J44.9 - CHRONIC OBSTRUCTIVE PULMONARY DISEASE, UNSPECIFIED Status : Chronic Priority: Medium Current Visit: No (10) Diabetes mellitus type 2 SNOMED Code(s): 51821478 Code(s): E11.9 - TYPE 2 DIABETES MELLITUS WITHOUT COMPLICATIONS Status: Chronic Priority: Medium Current Visit: No (11) Hyperlipidemia SNOMED Code(s): 81882602 Code(s): E78.5 - HYPERLIPIDEMIA, UNSPECIFIED Status: Chronic Priority: Medium Current Visit: No - Problem List Review Problem List Initiated/Reviewed/Updated: Yes - My Orders Last 24 Hours: My Active Orders 01/27/18 11:10 Alum Hydrox/Mag Hydrox/Simeth [Mag-Al Plus] 30 ml Lidocaine 2% [Xylocaine 2% Viscous] 15 ml PO ONETIME 01/27/18 11:11 CKMB [CHEM] Stat TROPONIN I [CHEM] Stat - Plan Plan:: Impression: --Mycoplasma Pneumonia COPD (emphysema) on chronic O2 --CV disease 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 Guillermo at [place].
[2018-01-27] MEDS: Apixaban 5 MG Tab PO SCH ×2 (11:31→21:05)
[2018-01-27] MEDS ORDERED: Magnesium Sulfate/Water 2 GM in Premix Bag 1 BAG IV ONE (11:34)
[2018-01-27] MEDS ORDERED: Nitroglycerin 0.4 MG Tab.SL SL PRN (11:41)
[2018-01-27] MEDS ORDERED: Triamcinolone Acetonide 0.1% Crm 15 GM Tube TOP PRN (11:41)
[2018-01-27] MEDS ORDERED: Saccharomyces Boulardii (Probiotic) 250 MG Cap PO SCH (11:45)
[2018-01-27] MEDS ORDERED: Sodium Chloride 0.9% 1,000 ML IV SCH (11:45)
[2018-01-27] MEDS ORDERED: POLYETHYLENE GLYCOL PO SCH (11:45)
[2018-01-27] MEDS ORDERED: Insulin Aspart 100 Units/ML 3 ML Pen SUBCUT ONE (12:04)
[2018-01-27] MEDS ORDERED: Insulin Detemir 100 Units/ML 3 ML Pen SUBCUT ONE (12:05)
[2018-01-27] MEDS: guaiFENesin/Dextromethorphan 100-10 MG/5 ML Soln 5 ML Cup PO PRN ×2 (14:52→21:15)
[2018-01-27] MEDS: Albuterol/Ipratropium 3.0-0.5 MG/3 ML Neb Soln NEB SCH (14:58)
[2018-01-27] MEDS ORDERED: Polyethylene Glycol 3350 Powder 17 GM Packet PO PRN (18:11)
[2018-01-27] MEDS ORDERED: ARFORMOTEROL 15 MCG NEB SCH (21:00)
[2018-01-27] MEDS ORDERED: Rosuvastatin 10 MG Tab PO SCH (21:00)
[2018-01-27] MEDS ORDERED: PETROLATUM EYEBOTH SCH (21:00)
[2018-01-27] MEDS ORDERED: Montelukast 10 MG Tab PO SCH ×2 (21:00)
[2018-01-27] MEDS ORDERED: MINERAL OIL EYEBOTH SCH (21:00)
[2018-01-27] MEDS ORDERED: Gabapentin 300 MG Cap PO SCH ×2 (21:00)
[2018-01-27] MEDS ORDERED: Insulin Detemir 100 Units/ML 3 ML Pen SUBCUT SCH (21:00)
[2018-01-27] MEDS ORDERED: Gabapentin 100 MG Cap PO SCH (21:00)
[2018-01-27] MEDS ORDERED: Budesonide 0.25 MG/2 ML Neb Susp INH SCH (21:00)
[2018-01-27] MEDS ORDERED: Apixaban 5 MG Tab PO SCH (21:00)
[2018-01-27] MEDS ORDERED: Clopidogrel 75 MG Tab PO ONE (22:09)
[2018-01-27] MEDS ORDERED: Enoxaparin 120 MG/0.8 ML Syringe SUBCUT SCH (22:09)
[2018-01-27] MEDS ORDERED: Clopidogrel 75 MG Tab ONE (22:48)
[2018-01-27] MEDS ORDERED: Enoxaparin 120 MG/0.8 ML Syringe ONE (22:48)
[2018-01-27] MEDS ORDERED: Nitroglycerin/D5W 25 MG/250 ML BOTTLE IV SCH (23:15)
[2018-01-27] MEDS ORDERED: Ondansetron 4 MG/2 ML SDV IVPUSH PRN (23:15)
[2018-01-27] MEDS: Morphine 2 MG/ML Syringe IVPUSH PRN (23:20)
[2018-01-27] MEDS ORDERED: Morphine 2 MG/ML Syringe ONE (23:24)
[2018-01-27] MEDS ORDERED: Ondansetron 4 MG/2 ML SDV ONE (23:24)
[2018-01-27] MEDS ORDERED: Nitroglycerin/D5W 25 MG/250 ML BOTTLE ONE (23:24)
[2018-01-27] MEDS ORDERED: Metoprolol Tartrate 5 MG/5 ML SDV IVPUSH PRN (23:56)
[2018-01-28] MEDS ORDERED: LORazepam 2 MG/ML SDV IVPUSH ONE (00:30)
[2018-01-28] MEDS ORDERED: cloNIDine 0.1 MG Tab PO ONE (00:30)
[2018-01-28] MEDS: Nitroglycerin 0.4 MG Tab.SL SL PRN (00:57)
[2018-01-28] MEDS ORDERED: Morphine 2 MG/ML Syringe IVPUSH ONE (01:23)
[2018-01-28] MEDS ORDERED: Alum Hydrox/Mag Hydrox/Simeth 30 ML, Lidocaine 2% 15 ML PO ONE ×2 (01:24)
[2018-01-28] MEDS: Albuterol/Ipratropium 3.0-0.5 MG/3 ML Neb Soln NEB SCH ×2 (01:28→03:07)
[2018-01-28] MEDS ORDERED: Aluminum Hydroxide/Magnesium Hydroxide/Simethicone Susp 30 ML Cup PO ONE (01:45)
[2018-01-28] MEDS ORDERED: Lidocaine 2% Viscous Solution 15 ML Cup PO ONE (01:45)
[2018-01-28] MEDS: guaiFENesin/Dextromethorphan 100-10 MG/5 ML Soln 5 ML Cup PO PRN (02:58)
[2018-01-28] MEDS: Morphine 2 MG/ML Syringe IVPUSH PRN (03:50)
[2018-01-28] MEDS ORDERED: Levothyroxine 50 MCG Tab PO SCH (06:00)
[2018-01-28] MEDS: Doxycycline 100 MG in Sodium Chloride 0.9% 100 ML IV SCH (06:41)
[2018-01-28] MEDS: Insulin Aspart 100 Units/ML 3 ML Pen SUBCUT SCH (06:51)
--- NOTE | 2018-01-28 07:06 | PCM.DCSUM1 ---
Discharge Summary - Hospital Course HPI Initial Comments: 77 year old male with PMH of COPD, DM type 2 , CAD (on high dose nitrates and Ranexa) presents with a 2 day history of SOB. This is associated with a productive cough with greenish sputum. He has been febrile without known temperature elevation at home. In the ED, he had systolic hypertension, no tachycardia; the pulse documented was 85 with a respiratory rate of 15. Documented O2 sat was 93% on ~3l/m. Lab work documeted a positive mycoplasma pneumonia; Lactic acid was 1.1. CXR developing LLL PNA; The patient received Oral doxycyline and rocephin IV. He is a full code and will be admitted to [facility]. Last hospitalization for respiratory infection was 08/2017. - Discharge Data Discharge Date: 01/28/18 (Admit: 01/26/18) Discharge Disposition: DC/Tfer to [facility] Condition: Fair - Discharge Diagnosis/Problem(s) (1) Non-ST elevated myocardial infarction SNOMED Code(s): 786846334 ICD Code: I21.4 - NON-ST ELEVATION (NSTEMI) MYOCARDIAL INFARCTION Status: Acute Priority: High Current Visit: Yes (2) Mycoplasma pneumonia SNOMED Code(s): 60966358 ICD Code: J15.7 - PNEUMONIA DUE TO MYCOPLASMA PNEUMONIAE Status: Acute Priority: High Current Visit: Yes Qualifiers: Laterality: left Lung location: lower lobe of lung Qualified Code(s): J15.7 - Pneumonia due to Mycoplasma pneumoniae (3) Acute exacerbation of chronic obstructive pulmonary disease (COPD) SNOMED Code(s): 857338118 ICD Code: J44.1 - CHRONIC OBSTRUCTIVE PULMONARY DISEASE W (ACUTE) EXACERBATION Status: Acute Priority: High Current Visit: Yes (4) CHF, Congestive heart failure SNOMED Code(s): 38721187 ICD Code: I50.9 - HEART FAILURE, UNSPECIFIED Status: Chronic Priority: Medium Current Visit: No (5) Elevated troponin SNOMED Code(s): 194398757, 453338412, 343491249 ICD Code: R74.8 - ABNORMAL LEVELS OF OTHER SERUM ENZYMES Status: Acute Priority: High Current Visit: Yes (6) Bradycardia SNOMED Code(s): 99050418 ICD Code: R00.1 - BRADYCARDIA, UNSPECIFIED Status: Acute Priority: Medium Current Visit: No (7) Coronary angioplasty SNOMED Code(s): 90390628 - Coronary angioplasty Status: Chronic Priority: Medium Current Visit: No (8) Hypoxia SNOMED Code(s): 443285795 ICD Code: R09.02 - HYPOXEMIA Status: Acute Priority: High Current Visit : No (9) CKD (chronic kidney disease) stage 3, GFR 30-59 ml/min SNOMED Code(s): 145704225 ICD Code: N18.3 - CHRONIC KIDNEY DISEASE, STAGE 3 (MODERATE) Status: Chronic Priority: Medium Current Visit: No (10) COPD (chronic obstructive pulmonary disease) with chronic bronchitis SNOMED Code(s): 457308201 ICD Code: J44.9 - CHRONIC OBSTRUCTIVE PULMONARY DISEASE, UNSPECIFIED Status : Chronic Priority: Medium Current Visit: No (11) Diabetes mellitus type 2 SNOMED Code(s): 60036655 ICD Code: E11.9 - TYPE 2 DIABETES MELLITUS WITHOUT COMPLICATIONS Status: Chronic Priority: Medium Current Visit: No (12) Hyperlipidemia SNOMED Code(s): 38929600 ICD Code: E78.5 - HYPERLIPIDEMIA, UNSPECIFIED Status: Chronic Priority: Medium Current Visit: No - Patient Summary/Data Consults: Consultations 01/26/18 21:25 Consult to Case Management [CONS] Routine 01/27/18 09:00 Consult to Occupational Therapy [OT Evaluation and Treatment] [CONS] Routine Consult to Physical Therapy [PT Evaluation and Treatment] [CONS] Routine 01/27/18 11:31 Consult to Respiratory Therapy [Respiratory Care Assess and Treatment] [CONS] Routine Labs Pending at D/C: None Hospital Course: Impression: --Mycoplasma Pneumonia COPD (emphysema) on chronic O2 --CV disease Hx of CAD/SC on high dose nitrate with Ranaxa Hx of CVA, remote 1971 --GERD --CKD, stage III --Elevated troponins -Troponin WNL in ed--> 0.585, repeat at 1500 today -CKMB 11.9--> Repeat at 1500 today -Strong cardiac history -Esophagus pain relieved by GI cocktail Chronic: HTN HLD Hypothyroid Obesity Plan: IVF Doxycycline IV Nebs, scheduled and prn Pulmonary Toilet DVT/GI prophylaxis Home meds Daily labs Consult CM/PT/OT RT/IS/Acapella Code status: Full code; PCP: Dr. Guillermo at [facility]. Unfortunately Steve had a difficult night. On admission he was found to have mycoplasma pneumonia and was subsequently admitted to the hospital floor. He complained of chest pain with his very severe cough and lots of sputum production. His oxygen was increased, however he is usually on home oxygen. Yesterday (01/27/18) he began complaining of "esophagus pain." He does have a rather significant CAD history and is on nitrates and Ranaxa at home. He also has a GERD history and COPD. He was given SL nitro which did not help the pain. He was given a GI cocktail which completely resolved his pain. Labs were obtained and his Troponin was 0.585 (it was normal in the ED). CK-MB was 11.9 and his Pro-BNP was found to be elevated over last visit (681 last visit; 3441 now). Troponin was trended ( >0.017 in ED-->0.585-->0.958-->1.754-->1.217), as was CKMB (11.9-->17.6-->18.4). After his repeat troponin was found to be elevated Dr. Aguilar went in to talk to Mr. Price and discuss transfer. He initially refused because he was "not having any pain." Overnight he began to experience substernal chest pain and became quite hypertensive with BP of 210/ 95 at its highest. He was given morphine, clonidine, nitroglycerine, and started on a nitro drip which finally resulted in lower BPs. He was given 150mg Plavix and 120mg Lovenox overnight as well. His chest pain subsided and is gone today. He has had multiple EKGs during his stay which showed some non-specific ST changes as well as a prior SC. No ST elevation was noted. He has been receiving doxycycline and a steroid for his mycoplasma pneumonia. His cough appears to be improving, although it is still productive. His WBC has been slightly elevated, although his last was lower (11.36-->13.95-->13.06). CRP has elevated (4.1-->11.7-->12.7). His sodium has been somewhat low (134). Today Steve agreed to be transfered. He requested [facility] in [place] as all his prior procedures were preformed there. [facility] was contacted and they are full. Contacted [facility] in [place] and they are accepting transfer. Dr. Bonilla has accepted care. He will be transfered via ground ALS ambulance. - Patient Instructions Diet: Heart Healthy Diet Activity: As Tolerated Driving: Do Not Drive - Discharge Plan Home Medications: Home Meds Aspirin [Adult Low Dose Aspirin EC] 81 mg PO DAILY 03/05/14 [History] Clopidogrel [Plavix] 75 mg PO DAILY 03/05/14 [History] Isosorbide Mononitrate [Imdur] 120 mg PO DAILY 03/05/14 [History] Nitroglycerin [Nitrostat] 0.4 mg SL ASDIRECTED PRN 03/05/14 [History] Polyethylene Glycol 1000 [Polyethylene Glycol] 1 scoop PO ASDIRECTED 03/05/14 [ History] Acetaminophen [Acetaminophen Extra Strength] 1,000 mg PO BID PRN 10/15/14 [ History] Insulin Aspart [Novolog Flexpen] 14 unit SQ TIDMEALS 10/15/14 [History] Ranolazine [Ranexa] 500 mg PO BID 12/28/14 [History] Fluticasone Propionate [Flonase] 2 spray NS DAILY 03/30/16 [History] Pantoprazole [ProTONIX] 40 mg PO DAILY 03/30/16 [History] Antacids 1 tab PO ASDIRECTED 06/30/16 [History] Budesonide [Pulmicort] 0.25 mg INH BID 06/30/16 [History] Furosemide [Lasix] 40 mg PO DAILY 06/30/16 [History] Levothyroxine Sodium [Synthroid] 50 mcg PO DAILY 06/30/16 [History] Montelukast [Singulair] 10 mg PO BEDTIME 06/30/16 [History] Ondansetron [Zofran ODT] 4 mg PO TID PRN 06/30/16 [History] Rosuvastatin [Crestor] 20 mg PO DAILY 06/30/16 [History] Tamsulosin [Flomax] 0.8 mg PO BEDTIME 06/30/16 [History] Captopril 50 mg PO BIDAC 06/17/17 [History] Gabapentin [Neurontin] 300 mg PO BID 06/17/17 [History] Umeclidinium [employer] [Incruse Ellipta*] 62.5 mcg IH DAILY 06/17/17 [History] Apixaban [Eliquis] 5 mg PO BID 08/28/17 [History] Insulin Glargine,Hum.Rec.Anlog [Basaglar Kwikpen U-100] 42 units SQ BID [History] Mineral Oil/Petrolatum Oint [Lacri-Lube S.O.P Oint] 3.5 gm EYEBOTH BEDTIME 08/28 [History] Triamcinolone Acetonide [Triamcinolone Acetonide 0.1% Crm] 1 applic TOP DAILY PRN 08/29/17 [History] Metoprolol Tartrate [Lopressor] 50 mg PO BID #60 tablet 09/01/17 [Rx] Arformoterol [Brovana] 15 mcg NEB BID 01/27/18 [History] Gabapentin [Neurontin] 100 mg PO BID 01/27/18 [History] Mupirocin Calcium [Mupirocin] 1 applic TOP BID 01/27/18 [History] Forms: ED Department Discharge Referrals: Saleem Guillermo Jr, MD [Primary Care Provider] - - Discharge Summary/Plan Comment DC Time >30 min.: Yes (120 minutes ) - General Info Date of Service: 01/28/18 Admission Dx/Problem (Free Text: Admission Diagnosis/Problem Admission Diagnosis/Problem Pneumonia due to Mycoplasma pneumoniae Subjective Update: In to see Steve. He was transferred to the ICU last night after worsening substernal chest pain and hypertension. He denies any chest pain now but states "If I were to get up and do anything it would likely come back." He denies any worsening SOB although his flow rate currently via AL is higher than his baseline at home. No other complaints. Blood sugars are high again and his insulin dosing will be adjusted. Nursing otherwise has no concerns. He will be transferred to [facility] via ground ambulance. Functional Status: Reports: Pain Controlled, Tolerating Diet, Ambulating, Urinating, New Symptoms (chest pain earlier ), Incentive Spirometry, Other ( acapella ) - Review of Systems General: Reports: No Symptoms. Denies: Fever, Weakness, Fatigue, Malaise, Chills HEENT: Reports: No Symptoms. Denies: Ear Pain, Eye Pain, Sinus Congestion, Sore Throat Pulmonary: Reports: Shortness of Breath (baseline ), Cough, Sputum, Wheezing Cardiovascular: Denies: Chest Pain (resolved now but severe overnight ), Palpitations, Dyspnea on Exertion, Lightheadedness Gastrointestinal: Reports: No Symptoms. Denies: Abdominal Pain, Constipation, Decreased Appetite, Diarrhea, Difficulty Swallowing, Nausea, Vomiting Genitourinary: Reports: No Symptoms Musculoskeletal: Reports: No Symptoms Skin: Reports: No Symptoms Neurological: Reports: No Symptoms. Denies: Confusion, Numbness, Pre-Existing Deficit, Tingling, Trouble Speaking, Difficulty Walking, Weakness, Change in Speech, Gait Disturbance Psychiatric: Reports: No Symptoms - Patient Data Vitals - Most Recent: Last Vital Signs Temp 98.3 F 01/27/18 23:13 Pulse 90 01/27/18 23:13 Resp 13 01/28/18 05:15 BP 161/74 H 01/28/18 07:00 Pulse Ox 99 01/28/18 05:15 Weight - Most Recent: 251 lb 1.6 oz I&O - Last 24 hours: Intake & Output 01/27/18 01/28/18 01/28/18 22:59 06:59 14:59 Intake Total 1440 3351 Output Total 3175 650 Balance -7272 0101 Lab Results - Last 24 hrs: Laboratory Results - last 24 hr 01/27/18 01/27/18 01/27/18 Range/Units 06:10 06:10 06:10 WBC (4.23-9.07) K/mm3 RBC (4.63-6.08) M/mm3 Hgb (13.7-17.5) gm/L Hct (40.1-51.0) % MCV (79.0-92.2) fl MCH (25.7-32.2) pg MCHC (32.2-35.5) g/dl RDW Std Deviation (35.1-43.9) fL Plt Count (163-337) K/mm3 MPV (9.4-12.3) fl Neut % (Auto) (34.0-67.9) % Lymph % (Auto) (21.8-53.1) % [place] % (Auto) (5.3-12.2) % Eos % (Auto) (0.8-7.0) Baso % (Auto) (0.1-1.2) % Neut # (Auto) (1.78-5.38) K/mm3 Lymph # (Auto) (1.32-3.57) K/mm3 [place] # (Auto) (0.30-0.82) K/mm3 Eos # (Auto) (0.04-0.54) K/mm3 Baso # (Auto) (0.01-0.08) K/mm3 Manual Slide Review Abnormal smear Sodium 137 (136-145) mEq/L Potassium 4.0 (3.5-5.1) mEq/L Chloride 98 (98-107) mEq/L Carbon Dioxide 31 (21-32) mEq/L Anion Gap 12.0 (5-15) BUN 19 H (7-18) mg/dL Creatinine 1.7 H (0.7-1.3) mg/dL Est Cr Clr Drug Dosing 43.49 mL/min Estimated GFR (MDRD) 39 (>60) mL/min BUN/Creatinine Ratio 11.2 L (14-18) Glucose 346 H (83-115) mg/dL POC Glucose (83-110) mg/dL Lactic Acid 1.5 (0.4-2.0) mmol/L Calcium 9.3 (8.5-10.1) mg/dL Magnesium 1.6 L (1.8-2.4) mg/dl CK-MB (CK-2) (0-3.6) ng/ml Troponin I (0.00-0.056) ng/mL C-Reactive Protein 11.7 H* (<1.0) mg/dL NT-Pro-B Natriuret Pep (0-450) pg/mL 01/27/18 01/27/18 01/27/18 Range/Units 11:18 11:18 15:10 WBC (4.23-9.07) K/mm3 RBC (4.63-6.08) M/mm3 Hgb (13.7-17.5) gm/L Hct (40.1-51.0) % MCV (79.0-92.2) fl MCH (25.7-32.2) pg MCHC (32.2-35.5) g/dl RDW Std Deviation (35.1-43.9) fL Plt Count (163-337) K/mm3 MPV (9.4-12.3) fl Neut % (Auto) (34.0-67.9) % Lymph % (Auto) (21.8-53.1) % [place] % (Auto) (5.3-12.2) % Eos % (Auto) (0.8-7.0) Baso % (Auto) (0.1-1.2) % Neut # (Auto) (1.78-5.38) K/mm3 Lymph # (Auto) (1.32-3.57) K/mm3 [place] # (Auto) (0.30-0.82) K/mm3 Eos # (Auto) (0.04-0.54) K/mm3 Baso # (Auto) (0.01-0.08) K/mm3 Manual Slide Review Sodium (136-145) mEq/L Potassium (3.5-5.1) mEq/L Chloride (98-107) mEq/L Carbon Dioxide (21-32) mEq/L Anion Gap (5-15) BUN (7-18) mg/dL Creatinine (0.7-1.3) mg/dL Est Cr Clr Drug Dosing mL/min Estimated GFR (MDRD) (>60) mL/min BUN/Creatinine Ratio (14-18) Glucose 482 H (83-115) mg/dL POC Glucose (83-110) mg/dL Lactic Acid (0.4-2.0) mmol/L Calcium (8.5-10.1) mg/dL Magnesium (1.8-2.4) mg/dl CK-MB (CK-2) 11.9 H 17.6 H (0-3.6) ng/ml Troponin I 0.585 H* 0.958 H* (0.00-0.056) ng/mL C-Reactive Protein (<1.0) mg/dL NT-Pro-B Natriuret Pep (0-450) pg/mL 01/27/18 01/27/18 01/27/18 Range/Units 15:10 16:55 21:05 WBC (4.23-9.07) K/mm3 RBC (4.63-6.08) M/mm3 Hgb (13.7-17.5) gm/L Hct (40.1-51.0) % MCV (79.0-92.2) fl MCH (25.7-32.2) pg MCHC (32.2-35.5) g/dl RDW Std Deviation (35.1-43.9) fL Plt Count (163-337) K/mm3 MPV (9.4-12.3) fl Neut % (Auto) (34.0-67.9) % Lymph % (Auto) (21.8-53.1) % [place] % (Auto) (5.3-12.2) % Eos % (Auto) (0.8-7.0) Baso % (Auto) (0.1-1.2) % Neut # (Auto) (1.78-5.38) K/mm3 Lymph # (Auto) (1.32-3.57) K/mm3 [place] # (Auto) (0.30-0.82) K/mm3 Eos # (Auto) (0.04-0.54) K/mm3 Baso # (Auto) (0.01-0.08) K/mm3 Manual Slide Review Sodium (136-145) mEq/L Potassium (3.5-5.1) mEq/L Chloride (98-107) mEq/L Carbon Dioxide (21-32) mEq/L Anion Gap (5-15) BUN (7-18) mg/dL Creatinine (0.7-1.3) mg/dL Est Cr Clr Drug Dosing mL/min Estimated GFR (MDRD) (>60) mL/min BUN/Creatinine Ratio (14-18) Glucose 454 H (83-115) mg/dL POC Glucose (83-110) mg/dL Lactic Acid (0.4-2.0) mmol/L Calcium (8.5-10.1) mg/dL Magnesium (1.8-2.4) mg/dl CK-MB (CK-2) 18.4 H (0-3.6) ng/ml Troponin I 1.754 H* (0.00-0.056) ng/mL C-Reactive Protein (<1.0) mg/dL NT-Pro-B Natriuret Pep 3441 H (0-450) pg/mL 01/27/18 01/28/18 01/28/18 Range/Units 22:04 05:29 05:30 WBC 13.06 H (4.23-9.07) K/mm3 RBC 3.64 L (4.63-6.08) M/mm3 Hgb 10.3 L (13.7-17.5) gm/L Hct 32.7 L (40.1-51.0) % MCV 89.8 (79.0-92.2) fl MCH 28.3 (25.7-32.2) pg MCHC 31.5 L (32.2-35.5) g/dl RDW Std Deviation 51.1 H (35.1-43.9) fL Plt Count 158 L (163-337) K/mm3 MPV 10.9 (9.4-12.3) fl Neut % (Auto) 92.2 H (34.0-67.9) % Lymph % (Auto) 2.8 L (21.8-53.1) % [place] % (Auto) 4.2 L (5.3-12.2) % Eos % (Auto) 0 L (0.8-7.0) Baso % (Auto) 0.1 (0.1-1.2) % Neut # (Auto) 12.04 H (1.78-5.38) K/mm3 Lymph # (Auto) 0.37 L (1.32-3.57) K/mm3 [place] # (Auto) 0.55 (0.30-0.82) K/mm3 Eos # (Auto) 0.00 L (0.04-0.54) K/mm3 Baso # (Auto) 0.01 (0.01-0.08) K/mm3 Manual Slide Review Abnormal smear Sodium (136-145) mEq/L Potassium (3.5-5.1) mEq/L Chloride (98-107) mEq/L Carbon Dioxide (21-32) mEq/L Anion Gap (5-15) BUN (7-18) mg/dL Creatinine (0.7-1.3) mg/dL Est Cr Clr Drug Dosing mL/min Estimated GFR (MDRD) (>60) mL/min BUN/Creatinine Ratio (14-18) Glucose (83-115) mg/dL POC Glucose 383 H 385 H (83-110) mg/dL Lactic Acid (0.4-2.0) mmol/L Calcium (8.5-10.1) mg/dL Magnesium (1.8-2.4) mg/dl CK-MB (CK-2) (0-3.6) ng/ml Troponin I (0.00-0.056) ng/mL C-Reactive Protein (<1.0) mg/dL NT-Pro-B Natriuret Pep (0-450) pg/mL 01/28/18 01/28/18 Range/Units 05:30 05:30 WBC (4.23-9.07) K/mm3 RBC (4.63-6.08) M/mm3 Hgb (13.7-17.5) gm/L Hct (40.1-51.0) % MCV (79.0-92.2) fl MCH (25.7-32.2) pg MCHC (32.2-35.5) g/dl RDW Std Deviation (35.1-43.9) fL Plt Count (163-337) K/mm3 MPV (9.4-12.3) fl Neut % (Auto) (34.0-67.9) % Lymph % (Auto) (21.8-53.1) % [place] % (Auto) (5.3-12.2) % Eos % (Auto) (0.8-7.0) Baso % (Auto) (0.1-1.2) % Neut # (Auto) (1.78-5.38) K/mm3 Lymph # (Auto) (1.32-3.57) K/mm3 [place] # (Auto) (0.30-0.82) K/mm3 Eos # (Auto) (0.04-0.54) K/mm3 Baso # (Auto) (0.01-0.08) K/mm3 Manual Slide Review Sodium 134 L (136-145) mEq/L Potassium 4.3 (3.5-5.1) mEq/L Chloride 98 (98-107) mEq/L Carbon Dioxide 30 (21-32) mEq/L Anion Gap 10.3 (5-15) BUN 32 H (7-18) mg/dL Creatinine 1.5 H (0.7-1.3) mg/dL Est Cr Clr Drug Dosing 48.51 mL/min Estimated GFR (MDRD) 45 (>60) mL/min BUN/Creatinine Ratio 21.3 H (14-18) Glucose 408 H (83-115) mg/dL POC Glucose (83-110) mg/dL Lactic Acid (0.4-2.0) mmol/L Calcium 9.1 (8.5-10.1) mg/dL Magnesium 2.4 (1.8-2.4) mg/dl CK-MB (CK-2) (0-3.6) ng/ml Troponin I 1.217 H* (0.00-0.056) ng/mL C-Reactive Protein 12.7 H* (<1.0) mg/dL NT-Pro-B Natriuret Pep (0-450) pg/mL [facility] Results - Last 24 hrs: Microbiology 01/26/18 16:49 Streptococcus pneumoniae Antigen (M - Final Urine 01/26/18 17:07 Aerobic Blood Culture - Preliminary Blood - Venous NO GROWTH AFTER 1 DAY Anaerobic Blood Culture - Preliminary NO GROWTH AFTER 1 DAY 01/26/18 17:30 Aerobic Blood Culture - Preliminary Blood - Venous - Lab Draw NO GROWTH AFTER 1 DAY Anaerobic Blood Culture - Preliminary NO GROWTH AFTER 1 DAY 01/26/18 16:50 Gram Stain - Preliminary Sputum - Expectorated Sputum Culture - Preliminary Gram Negative Coccobacilli Med Orders - Current: Current Medications Acetaminophen (Tylenol) 650 mg PO Q4H PRN PRN Reason: Pain/Fever Last Admin: 01/26/18 22:56 Dose: 650 mg Al Hydroxide/Mg Hydroxide (Mag-Al Plus) 30 ml PO Q4H PRN PRN Reason: Heartburn Last Admin: 01/27/18 09:42 Dose: 30 ml Albuterol (Proventil Neb Soln) 2.5 mg NEB Q4HRRT PRN PRN Reason: Shortness of Breath Last Admin: 01/26/18 22:58 Dose: 2.5 mg Albuterol/Ipratropium (Duoneb 3.0-0.5 Mg/3 Ml) 3 ml NEB Q6HRRT [facility] Last Admin: 01/28/18 03:07 Dose: 3 ml Apixaban (Eliquis) 5 mg PO BID [facility] Last Admin: 01/27/18 21:05 Dose: 5 mg Aspirin (Halfprin) 81 mg PO DAILY [facility] Budesonide (Pulmicort) 0.25 mg INH BID [place] Captopril (Capoten) 50 mg PO BIDAC [facility] Last Admin: 01/28/18 06:40 Dose: 50 mg Clopidogrel Bisulfate (Plavix) 75 mg PO DAILY [facility] Dextrose/Water (Dextrose 50% In Water) 50 ml IVPUSH ASDIRECTED PRN PRN Reason: Hypoglycemia Enoxaparin Sodium (Lovenox) 120 mg SUBCUT DAILY [facility] Flunisolide (Nasalide Nasal [place]) 0 ml GISEL BID [facility] Last Admin: 01/27/18 21:10 Dose: 2 sprays Furosemide (Lasix) 40 mg PO DAILY [facility] Gabapentin (Neurontin) 100 mg PO BID [facility] Last Admin: 01/27/18 21:05 Dose: 100 mg Gabapentin (Neurontin) 300 mg PO BID [facility] Last Admin: 01/27/18 21:05 Dose: 300 mg Guaifenesin/Phenylephrine HCl (Robitussin Dm) 10 ml PO Q4H PRN PRN Reason: Cough Last Admin: 01/28/18 02:58 Dose: 10 ml Hydralazine HCl (Apresoline) 20 mg IVPUSH Q6H PRN PRN Reason: Hypertension Last Admin: 01/27/18 22:25 Dose: 20 mg Doxycycline Hyclate 100 mg/ (Sodium Chloride) 100 mls @ 100 mls/hr IV Q12H [facility] Last Admin: 01/28/18 06:41 Dose: 100 mls/hr Nitroglycerin/Dextrose (Nitroglycerin 25 Mg/D5w 250 Ml) 25 mg in 250 mls @ 12 mls/hr IV TITRATE [facility]; Protocol Last Admin: 01/27/18 23:30 Dose: 20 mcg/min, 12 mls/hr Insulin Aspart (Novolog) 0 unit SUBCUT QIDACANDBED [facility]; Protocol Last Admin: 01/28/18 06:51 Dose: 15 units Insulin Detemir (Levemir) 42 unit SUBCUT BID [facility] Last Admin: 01/27/18 22:10 Dose: 42 units Isosorbide Mononitrate (Imdur) 120 mg PO DAILY [facility] Levothyroxine Sodium (Synthroid) 50 mcg PO ACBREAKFAST [facility] Last Admin: 01/28/18 06:41 Dose: 50 mcg Methylprednisolone Sodium Succinate (Solu-Medrol) 80 mg IVPUSH Q12H [facility] Last Admin: 01/27/18 22:10 Dose: 80 mg Metoprolol Tartrate (Lopressor) 50 mg PO BID [facility] Last Admin: 01/27/18 21:05 Dose: 50 mg Metoprolol Tartrate (Lopressor) 5 mg IVPUSH Q6H PRN PRN Reason: Heart Rate Montelukast Sodium (Singulair) 10 mg PO BEDTIME [facility] Last Admin: 01/27/18 21:05 Dose: 10 mg Morphine Sulfate (Morphine) 1 mg IVPUSH Q2H PRN PRN Reason: Chest Pain Last Admin: 01/28/18 03:50 Dose: 1 mg Ondansetron HCl (Zofran) 4 mg IVPUSH Q8H PRN PRN Reason: Nausea Last Admin: 01/27/18 23:20 Dose: 4 mg Pantoprazole Sodium (Protonix) 40 mg PO DAILY [facility] Arformoterol 15 Mcg 0 each NEB BID [facility] Last Admin: 01/27/18 21:00 Dose: Not Given Mineral Oil/Petrolatum Oint 3.5 Gm 0 each EYEBOTH BEDTIME [facility] Last Admin: 01/27/18 21:05 Dose: Not Given Umeclidinium [employer] (62.5 Mcg) 0 each INH DAILY [facility] Polyethylene Glycol (Miralax) 17 gm PO DAILY PRN PRN Reason: Constipation Last Admin: 01/27/18 18:24 Dose: 17 gm Ranolazine (Ranexa) 500 mg PO BID [facility] Last Admin: 01/27/18 21:05 Dose: 500 mg Rosuvastatin Calcium (Crestor) 20 mg PO BEDTIME [facility] Last Admin: 01/27/18 21:05 Dose: 20 mg Saccharomyces Boulardii (Florastor) 500 mg PO DAILY [facility] Last Admin: 01/27/18 12:10 Dose: 500 mg Sodium Chloride (Saline Flush) 10 ml FLUSH ASDIRECTED PRN PRN Reason: Keep Vein Open Last Admin: 01/26/18 17:02 Dose: 10 ml Tamsulosin HCl (Flomax) 0.8 mg PO BEDTIME [facility] Last Admin: 01/27/18 21:05 Dose: 0.8 mg Triamcinolone Acetonide (Triamcinolone Acetonide 0.1% Crm) 0 gm TOP DAILY PRN PRN Reason: Rash Discontinued Medications Al Hydroxide/Mg Hydroxide (Mag-Al Plus) 30 ml PO ONETIME ONE Stop: 01/28/18 01:46 Last Admin: 01/28/18 01:52 Dose: 30 ml Albuterol (Proventil Neb Soln) 2.5 mg NEB ONETIME ONE Stop: 01/26/18 16:34 Last Admin: 01/26/18 16:53 Dose: 2.5 mg Albuterol/Ipratropium (Duoneb 3.0-0.5 Mg/3 Ml) 3 ml NEB QID PRN PRN Reason: Shortness of Breath Last Admin: 01/27/18 09:53 Dose: 3 ml Apixaban (Eliquis) 5 mg PO BID [facility] Budesonide (Pulmicort) 0.25 mg NEB BIDRT [facility] Last Admin: 01/27/18 06:44 Dose: 0.25 mg Budesonide (Pulmicort) 0.25 mg INH BIDRT [facility] Last Admin: 01/28/18 01:28 Dose: Not Given Clonidine HCl (Catapres) 0.1 mg PO ONETIME ONE Stop: 01/28/18 00:31 Last Admin: 01/28/18 00:58 Dose: 0.1 mg Clopidogrel Bisulfate (Plavix) 75 mg PO DAILY [facility] Last Admin: 01/27/18 11:30 Dose: 75 mg Clopidogrel Bisulfate (Plavix) Confirm Administered Dose 150 mg .ROUTE .STK-MED ONE Stop: 01/27/18 22:49 Last Admin: 01/28/18 01:00 Dose: Not Given Clopidogrel Bisulfate (Plavix) 150 mg PO ONETIME ONE Stop: 01/27/18 22:10 Last Admin: 01/27/18 22:45 Dose: 150 mg Al Hydroxide/Mg Hydroxide 30 (ml/ Lidocaine HCl 15 ml) 0 ml PO ONETIME ONE Stop: 01/27/18 11:11 Last Admin: 01/27/18 11:28 Dose: 45 ml Doxycycline Hyclate (Vibramycin) 200 mg PO ONETIME ONE Stop: 01/26/18 18:26 Last Admin: 01/26/18 18:42 Dose: 200 mg Doxycycline Hyclate (Vibramycin) Confirm Administered Dose 100 mg .ROUTE .STK- MED ONE Stop: 01/27/18 05:54 Last Admin: 01/27/18 06:24 Dose: Not Given Enoxaparin Sodium (Lovenox) Confirm Administered Dose 120 mg .ROUTE .STK-MED ONE Stop: 01/27/18 22:49 Last Admin: 01/27/18 22:45 Dose: 120 mg Gabapentin (Neurontin) 300 mg PO BEDTIME [facility] Ceftriaxone Sodium 2 gm/ (Sodium Chloride) 100 mls @ 100 mls/hr IV ONETIME ONE Stop: 01/26/18 19:21 Last Admin: 01/26/18 18:42 Dose: 100 mls/hr Sodium Chloride (Sodium Chloride 0.45%) 1,000 mls @ 75 mls/hr IV ASDIRECTED [facility] Stop: 01/27/18 04:00 Last Admin: 01/26/18 22:32 Dose: 75 mls/hr Magnesium Sulfate 2 gm/ Premix 50 mls @ 25 mls/hr IV ONETIME ONE Stop: 01/27/18 13:33 Last Admin: 01/27/18 12:10 Dose: 25 mls/hr Sodium Chloride (Normal Saline) 1,000 mls @ 100 mls/hr IV ASDIRECTED [facility] Stop: 01/27/18 21:44 Last Admin: 01/27/18 12:12 Dose: 100 mls/hr Nitroglycerin/Dextrose (Nitroglycerin 25 Mg/D5w 250 Ml) Confirm Administered Dose 25 mg in 250 mls @ as directed .ROUTE .STK-MED ONE Stop: 01/27/18 23:25 Last Admin: 01/28/18 00:43 Dose: Not Given Insulin Aspart (Novolog) 14 unit SUBCUT QIDACANDBED ONE Stop: 01/27/18 12:05 Last Admin: 01/27/18 12:15 Dose: 14 units Insulin Detemir (Levemir) 20 unit SUBCUT ONETIME ONE Stop: 01/27/18 12:06 Last Admin: 01/27/18 12:16 Dose: 20 units Isosorbide Mononitrate (Imdur) 120 mg PO DAILY [facility] Last Admin: 01/27/18 11:32 Dose: 120 mg Levothyroxine Sodium (Synthroid) 50 mcg PO ACBREAKFAST [facility] Last Admin: 01/27/18 13:18 Dose: Not Given Lidocaine HCl (Xylocaine 2% Viscous) 15 ml PO ONETIME ONE Stop: 01/28/18 01:46 Last Admin: 01/28/18 01:52 Dose: 15 ml Lorazepam (Ativan) 0.5 mg IVPUSH ONETIME ONE Stop: 01/28/18 00:31 Last Admin: 01/28/18 00:58 Dose: 0.5 mg Metoprolol Tartrate (Lopressor) 50 mg PO Q12HR [facility] Last Admin: 01/27/18 11:32 Dose: 50 mg Montelukast Sodium (Singulair) 10 mg PO BEDTIME [facility] Morphine Sulfate (Morphine) Confirm Administered Dose 2 mg .ROUTE .STK-MED ONE Stop: 01/27/18 23:25 Last Admin: 01/28/18 00:43 Dose: Not Given Morphine Sulfate (Morphine) 2 mg IVPUSH ONETIME ONE Stop: 01/28/18 01:24 Last Admin: 01/28/18 01:52 Dose: 2 mg Nitroglycerin (Nitrostat) 0.4 mg SL Q5M PRN PRN Reason: Chest Pain Last Admin: 01/28/18 00:57 Dose: 0.4 mg Nitroglycerin (Nitrostat) 0.4 mg SL ONETIME ONE Stop: 01/27/18 10:44 Last Admin: 01/27/18 10:48 Dose: 0.4 mg Nitroglycerin (Nitrostat) 0.4 mg SL ASDIRECTED PRN PRN Reason: Chest Pain Non-Formulary Medication (Polyethylene Glycol 1000 [Polyethylene Glycol]) 1 scoop PO ASDIRECTED [facility] Ondansetron HCl (Zofran) Confirm Administered Dose 4 mg .ROUTE .STK-MED ONE Stop: 01/27/18 23:25 Last Admin: 01/28/18 00:43 Dose: Not Given Pantoprazole Sodium (Protonix) 40 mg PO DAILY [facility] Last Admin: 01/27/18 11:30 Dose: 40 mg Ranolazine (Ranexa) 500 mg PO BID [facility] Last Admin: 01/27/18 11:31 Dose: 500 mg Rosuvastatin Calcium (Crestor) 20 mg PO DAILY [facility] Admin: 01/27/18 11:30 Dose: 0.4 mg - Exam Quality Assessment: Reports: Supplemental Oxygen, DVT Prophylaxis General: Reports: Alert, Oriented, Cooperative, No Acute Distress HEENT: Reports: Pupils Equal, Pupils Reactive, EOMI, Mucous Membr. Moist/[place] Neck: Reports: Supple, Trachea Midline, No JVD Lungs: Reports: Normal Respiratory Effort, Decreased Breath Sounds, Wheezing ( mild ) Cardiovascular: Reports: Regular Rate, Regular Rhythm GI/Abdominal Exam: Normal Bowel Sounds, Soft, Non-Tender, No Distention (Male) Exam: Deferred Rectal (Males) Exam: Deferred Back Exam: Reports: Normal Inspection, Full Range of Motion Extremities: Normal Inspection, Normal Range of Motion, Non-Tender, No Pedal Edema, Normal Capillary Refill Skin: Reports: Warm, Dry, Intact Neurological: Reports: No New Focal Deficit Psy/Mental Status: Reports: Alert, Normal Affect, Normal Mood
[2018-01-28 07:08] VITALS: BP 145/60
[2018-01-28] MEDS ORDERED: Pantoprazole 40 MG Tab.CR PO SCH (09:00)
[2018-01-28] MEDS ORDERED: Budesonide 0.25 MG/2 ML Neb Susp INH SCH (09:00)
[2018-01-28] MEDS ORDERED: UMECLIDINIUM BROMIDE 62.5 MCG INH SCH (09:00)
[2018-01-28] MEDS ORDERED: Isosorbide Mononitrate 60 MG Tab.ER PO SCH (09:00)
[2018-01-28] MEDS ORDERED: Aspirin 81 MG Tab.EC PO SCH (09:00)
[2018-01-28] MEDS ORDERED: Furosemide 40 MG Tab PO SCH (09:00)
[2018-01-28] MEDS ORDERED: Rosuvastatin 10 MG Tab PO SCH (09:00)
[2018-01-28] MEDS ORDERED: Clopidogrel 75 MG Tab PO SCH (09:00)
== END 2018-01-28 07:33 | DRG 193 ==
LOC: JD.ED 15:42 → SUPCPDRO 15:42 → JD.MS 20:06 → JD.ICU 01-27 22:10
PROVIDERS: ADMIT Internal Medicine Cardiovascular Disease; ATTEND Internal Medicine Cardiovascular Disease
DX: J15.7 Pneumonia due to Mycoplasma pneumoniae (principal); R07.9 Chest pain, unspecified; I21.4 Non-ST elevation (NSTEMI) myocardial infarction; I13.0 Hypertensive heart and chronic kidney disease with heart failure and stage 1 through stage 4 chronic kidney disease, or unspecified chronic kidney disease; I10 Essential (primary) hypertension; H54.7 Unspecified visual loss; E78.00 Pure hypercholesterolemia, unspecified; J43.9 Emphysema, unspecified; K21.9 Gastro-esophageal reflux disease without esophagitis; G89.29 Other chronic pain; M54.9 Dorsalgia, unspecified; M19.90 Unspecified osteoarthritis, unspecified site; E11.9 Type 2 diabetes mellitus without complications; L82.1 Other seborrheic keratosis; I45.81 Long QT syndrome; R51 Headache; I25.10 Atherosclerotic heart disease of native coronary artery without angina pectoris; R00.1 Bradycardia, unspecified; I50.9 Heart failure, unspecified; R09.02 Hypoxemia; E11.22 Type 2 diabetes mellitus with diabetic chronic kidney disease; N18.3 Chronic kidney disease, stage 3 (moderate); E78.5 Hyperlipidemia, unspecified; R06.02 Shortness of breath; R09.3 Abnormal sputum; R05 Cough; E03.9 Hypothyroidism, unspecified; E66.9 Obesity, unspecified; Z68.31 Body mass index [BMI] 31.0-31.9, adult; Z95.5 Presence of coronary angioplasty implant and graft; I25.2 Old myocardial infarction; Z87.891 Personal history of nicotine dependence; Z88.6 Allergy status to analgesic agent; Z88.8 Allergy status to other drugs, medicaments and biological substances; Z99.81 Dependence on supplemental oxygen; Z79.02 Long term (current) use of antithrombotics/antiplatelets; Z86.73 Personal history of transient ischemic attack (TIA), and cerebral infarction without residual deficits; Z79.82 Long term (current) use of aspirin; Z79.4 Long term (current) use of insulin; Z79.899 Other long term (current) drug therapy
CPT/HCPCS: 36415; 71046; 80053; 83605; 84484; 85007; 85027; 86140; 86738; 87040 ×2; 87070; 87077; 87184; 87205; 87899; 93005; 94640; A9270; J0696; J7030; J7050; 80048; 82553; 82947; 82962; 83735; 83880; 85025; 93010; 94668; 94760; 94761; 96365; 97110-GP; 97116-GP; 97162-GP; 97165-GO; 97530-GP; 99285; 99285-25; J0360; J1650; J1815-GY; J2060; J2270; J2405; J2920; J3475; J7040

== ENCOUNTER 2018-09-20 10:56 | Emergency (ER) | payer MEDICARE, MEDICAID ==
[2018-09-20 11:10] VITALS: BP 209/91
[2018-09-20] MEDS ORDERED: Benzonatate 100 MG Cap PO ONE (12:00)
[2018-09-20] MEDS ORDERED: Albuterol/Ipratropium 3.0-0.5 MG/3 ML Neb Soln NEB ONE (12:00)
--- NOTE | 2018-09-20 12:11 | EDM.PDOC ---
ED HPI GENERAL MEDICAL PROBLEM - General Chief Complaint: Respiratory Problem Stated Complaint: SOB Time Seen by Provider: 09/20/18 11:24 Source of Information: Reports: Patient, RN Notes Reviewed History Limitations: Reports: No Limitations - History of Present Illness INITIAL COMMENTS - FREE TEXT/NARRATIVE: Patient is a 78 year old male who presents to the ED for the evaluation of cough /SOB. This has been going on for the last 2-3 days. This is a dry, hacking kind of cough. He states that his throat is dry and this is making him cough. He is on chronic oxygen therapy at [place] via [place]. He notes a history of emphysema and hospitalization for pneumonia. He states that he is nauseated, but does not have vomiting or diarrhea, no chest pain or abdominal pain. He was worried that this may progress into more if he had not gotten checked out. He did go to the store to buy some OTC cough medications, but was unable to take this as his cough worsened as he went to the store this AM. - Related Data Allergies Allergy/AdvReac Type Severity Reaction Status Date / Time glipizide [From Glucotrol] Allergy Other Verified 09/20/18 11:10 ibuprofen Allergy Other Verified 09/20/18 11:10 metformin Allergy Other Verified 09/20/18 11:10 pioglitazone [From Actos] Allergy Other Verified 09/20/18 11:10 codeine AdvReac Nausea and Verified 09/20/18 11:10 Vomiting fish oil AdvReac Nausea and Verified 09/20/18 11:10 Vomiting Home Meds: Home Meds Aspirin [Adult Low Dose Aspirin EC] 81 mg PO DAILY 03/05/14 [History] Clopidogrel [Plavix] 75 mg PO DAILY 03/05/14 [History] Isosorbide Mononitrate [Imdur] 120 mg PO DAILY 03/05/14 [History] Nitroglycerin [Nitrostat] 0.4 mg SL ASDIRECTED PRN 03/05/14 [History] Polyethylene Glycol 1000 [Polyethylene Glycol] 1 scoop PO ASDIRECTED 03/05/14 [ History] Acetaminophen [Acetaminophen Extra Strength] 1,000 mg PO BID PRN 10/15/14 [ History] Insulin Aspart [Novolog Flexpen] 14 unit SQ TIDMEALS 10/15/14 [History] Ranolazine [Ranexa] 500 mg PO BID 12/28/14 [History] Fluticasone Propionate [Flonase] 2 spray NS DAILY 03/30/16 [History] Pantoprazole [ProTONIX] 40 mg PO DAILY 03/30/16 [History] Antacids 1 tab PO ASDIRECTED 06/30/16 [History] Budesonide [Pulmicort] 0.25 mg INH BID 06/30/16 [History] Furosemide [Lasix] 40 mg PO DAILY 06/30/16 [History] Levothyroxine Sodium [Synthroid] 50 mcg PO DAILY 06/30/16 [History] Montelukast [Singulair] 10 mg PO BEDTIME 06/30/16 [History] Ondansetron [Zofran ODT] 4 mg PO TID PRN 06/30/16 [History] Rosuvastatin [Crestor] 20 mg PO DAILY 06/30/16 [History] Tamsulosin [Flomax] 0.8 mg PO BEDTIME 06/30/16 [History] Captopril 50 mg PO BIDAC 06/17/17 [History] Gabapentin [Neurontin] 300 mg PO BID 06/17/17 [History] Umeclidinium [place] [Incruse Ellipta*] 62.5 mcg IH DAILY 06/17/17 [History] Apixaban [Eliquis] 5 mg PO BID 08/28/17 [History] Insulin Glargine,Hum.Rec.Anlog [Basaglar Kwikpen U-100] 42 units SQ BID [History] Mineral Oil/Petrolatum Oint [Lacri-Lube S.O.P Oint] 3.5 gm EYEBOTH BEDTIME 08/28 [History] Triamcinolone Acetonide [Triamcinolone Acetonide 0.1% Crm] 1 applic TOP DAILY PRN 08/29/17 [History] Metoprolol Tartrate [Lopressor] 50 mg PO BID #60 tablet 09/01/17 [Rx] Arformoterol [Brovana] 15 mcg NEB BID 01/27/18 [History] Gabapentin [Neurontin] 100 mg PO BID 01/27/18 [History] Mupirocin Calcium [Mupirocin] 1 applic TOP BID 01/27/18 [History] Past Medical History HEENT History: Reports: Impaired Vision Other HEENT History: wears glasses Cardiovascular History: Reports: High Cholesterol, Hypertension, [place] Respiratory History: Reports: COPD, SOB, Other (See Below) Other Respiratory History: emphasema Gastrointestinal History: Reports: GERD Genitourinary History: Reports: None Musculoskeletal History: Reports: Back Pain, Chronic, Osteoarthritis Neurological History: Reports: Headaches, Chronic Other Neuro History: Stroke in 1972 Endocrine/Metabolic History: Reports: Diabetes, Type II Hematologic History: Reports: None Other Hematologic History: hypomagnesemia Oncologic (Cancer) History: Reports: None Dermatologic History: Reports: None Other Dermatologic History: seborrheic keratosis - Infectious Disease History Infectious Disease History: Reports: Influenza, Measles - Past Surgical History Head Surgeries/Procedures: Reports: None Cardiovascular Surgical History: Reports: Coronary Artery Stent GI Surgical History: Reports: Colonoscopy Social & Family History - Family History Family Medical History: Noncontributory - Tobacco Use Smoking Status *Q: Former Smoker Used Tobacco, but Quit: Yes Month/Year Tobacco Last Used: 2011 - Caffeine Use Caffeine Use: Reports: Coffee, Soda Other Caffeine Use: states he has one every once in awhile when he feels like it. - Recreational Drug Use Recreational Drug Use: No ED ROS GENERAL - Review of Systems Review Of Systems: See Below Constitutional: Reports: Chills HEENT: Reports: Throat Pain (dry throat) Respiratory: Reports: Shortness of Breath, Wheezing, Cough. Denies: Sputum Cardiovascular: Denies: Chest Pain Endocrine: Reports: No Symptoms GI/Abdominal: Reports: No Symptoms : Reports: No Symptoms Musculoskeletal: Reports: No Symptoms Skin: Reports: No Symptoms Neurological: Reports: No Symptoms Psychiatric: Reports: No Symptoms Hematologic/Lymphatic: Reports: No Symptoms Immunologic: Reports: No Symptoms ED EXAM, GENERAL - Physical Exam Exam: See Below Exam Limited By: Respiratory Distress (pt is coughing and is having a hard time talking to me due to the coughing, hard time catching his breath.) General Appearance: Alert, WD/WN, Mild Distress (pt is coughing upon initial presentation and is having a hard time catching his breath due to the coughing) Eye Exam: Bilateral Eye: EOMI, Normal Inspection, PERRL Ears: Normal External Exam Nose: Normal Inspection Throat/Mouth: Normal Inspection, Normal Oropharynx, No Airway Compromise Head: Atraumatic, Normocephalic Neck: Normal Inspection Respiratory/Chest: No Accessory Muscle Use, Chest Non-Tender, Decreased Breath Sounds, Wheezing, Other (coughing) Cardiovascular: Normal Peripheral Pulses, Regular Rate, Rhythm, No Murmur GI/Abdominal: Normal Bowel Sounds, Soft, Non-Tender, No Distention Extremities: Normal Inspection, Normal Capillary Refill Neurological: Alert, Oriented, Normal Cognition, No Motor/Sensory Deficits Psychiatric: Normal Affect, Normal Mood Skin Exam: Warm, Dry, Intact, Normal Color, No Rash Course - Vital Signs Last Recorded V/S: Last Vital Signs Temp 96.1 F 09/20/18 11:06 Pulse 74 09/20/18 11:06 Resp 22 H 09/20/18 11:06 BP 209/91 H 09/20/18 11:06 Pulse Ox 98 09/20/18 12:00 - Orders/Labs/Meds Orders: Active Orders 24 hr Category Date Time Status RT Aerosol Therapy [RC] ASDIRECTED Care 09/20/18 12:00 Ordered Chest 2V [CR] Stat Exams 09/20/18 12:01 Ordered Labs: Laboratory Tests 09/20/18 09/20/18 Range/Units 12:19 12:19 WBC 6.57 (4.23-9.07) K/mm3 RBC 4.24 L (4.63-6.08) M/mm3 Hgb 12.4 L (13.7-17.5) gm/L Hct 38.4 L (40.1-51.0) % MCV 90.6 (79.0-92.2) fl MCH 29.2 (25.7-32.2) pg MCHC 32.3 (32.2-35.5) g/dl RDW Std Deviation 45.1 H (35.1-43.9) fL Plt Count 140 L (163-337) K/mm3 MPV 11.2 (9.4-12.3) fl Neutrophils % (Manual) 77 H (40-60) % Band Neutrophils % 0 (0-10) % Lymphocytes % (Manual) 17 L (20-40) % Atypical Lymphs % 0 % Monocytes % (Manual) 3 (2-10) % Eosinophils % (Manual) 1 (0.8-7.0) % Basophils % (Manual) 2 H (0.2-1.2) Platelet Estimate Decreased RBC Morph Comment Normal Sodium 142 (136-145) mEq/L Potassium 4.2 (3.5-5.1) mEq/L Chloride 101 (98-107) mEq/L Carbon Dioxide 32 (21-32) mEq/L Anion Gap 13.2 (5-15) BUN 22 H (7-18) mg/dL Creatinine 1.8 H (0.7-1.3) mg/dL Est Cr Clr Drug Dosing 40.42 mL/min Estimated GFR (MDRD) 37 (>60) mL/min BUN/Creatinine Ratio 12.2 L (14-18) Glucose 193 H (83-115) mg/dL Calcium 9.2 (8.5-10.1) mg/dL Total Bilirubin 0.7 (0.2-1.0) mg/dL AST 17 (15-37) U/L ALT 20 (16-63) U/L Alkaline Phosphatase 87 (46-116) U/L Total Protein 7.6 (6.4-8.2) g/dl Albumin 3.8 (3.4-5.0) g/dl Globulin 3.8 gm/dL Albumin/Globulin Ratio 1.0 (1-2) Meds: Medications Discontinued Medications Generic Name Dose Route Start Last Admin Trade Name Freq PRN Reason Stop Dose Admin Albuterol/Ipratropium 3 ml 09/20/18 12:00 09/20/18 12:14 Duoneb 3.0-0.5 Mg/3 Ml NEB 09/20/18 12:01 3 ml ONETIME ONE Administration Benzonatate 100 mg 09/20/18 12:00 09/20/18 12:50 Tessalon Perles PO 09/20/18 12:01 100 mg ONETIME ONE Administration - Re-Assessments/Exams Free Text/Narrative Re-Assessment/Exam: 09/20/18 12:16 Pt presents to the ED for the evaluation of cough/SOB. Due to his history of emphysema and pneumonias, I have ordered a CXR, CBC, CMP, 100mg benzonatate for the cough and duoneb for his wheezing. 09/20/18 13:53 The benzonatate did help, the patient states that he does have an appointment with his PCP on saturday. I have advised him to take the OTC cough medications over the weekend with his regular breathing medications to see if this doesn't provide him enough relief until his appointment on Saturday. His labs are unremarkable and CXR did not demonstrate any obvious pneumonia or other velazco. Departure - Departure Time of Disposition: 13:55 Disposition: Home, Self-Care 01 Condition: Fair Clinical Impression: Cough - Discharge Information *PRESCRIPTION DRUG MONITORING PROGRAM REVIEWED*: No *COPY OF PRESCRIPTION DRUG MONITORING REPORT IN PATIENT FIOR: No Instructions: Cough, Adult, [id number] Referrals: Saleem Guillermo Jr, MD [Primary Care Provider] - Forms: ED Department Discharge Additional Instructions: You have been evaluated in the ED for your cough. Please take the OTC cough medications that you have purchased over the weekend, and keep your appointment with Dr. Guillermo on Saturday. Your labs/x-ray did not demonstrate any acute abnormalities. Please try to increase intake of fluids and get as much rest as possible this weekend. Please return to ED if your symptoms should change or worsen. - My Orders Last 24 Hours: My Active Orders 09/20/18 12:00 RT Aerosol Therapy [RC] ASDIRECTED 09/20/18 12:01 Chest 2V [CR] Stat - Assessment/Plan Last 24 Hours: My Active Orders 09/20/18 12:00 RT Aerosol Therapy [RC] ASDIRECTED 09/20/18 12:01 Chest 2V [CR] Stat
--- NOTE | 2018-09-20 15:36 | CR ---
Chest: Two views of the chest were obtained. Comparison: Previous chest x-ray of 01/26/18 and 08/30/17. Slight parenchymal density within the left base is seen off the left cardiac apex. This appears to be fairly chronic and likely due to scarring. Lungs otherwise are clear. Diaphragms are flattened compatible with emphysematous change. Heart size is normal. Tortuous thoracic aorta is seen. Bony structures show slight degenerative change. Impression: 1. Findings as described above. Nothing acute is definitely appreciated. Diagnostic code #3
== END 2018-09-20 14:27 | disposition home or self-care (01) ==
LOC: JD.ED 10:56
DX: R05 Cough (principal); E11.9 Type 2 diabetes mellitus without complications; I10 Essential (primary) hypertension; J44.9 Chronic obstructive pulmonary disease, unspecified; Z88.5 Allergy status to narcotic agent; Z91.048 Other nonmedicinal substance allergy status; Z91.013 Allergy to seafood; Z79.82 Long term (current) use of aspirin; Z79.899 Other long term (current) drug therapy; Z87.891 Personal history of nicotine dependence
CPT/HCPCS: 36415; 71046; 80053; 85007; 85027; 94640; 99285; A9270; 99283; J7620-GY

== ENCOUNTER 2018-09-20 15:42 | Emergency (ER) | payer MEDICARE, MEDICAID ==
[2018-09-20 16:04] VITALS: BP 189/101
--- NOTE | 2018-09-20 16:19 | EDM.PDOC ---
ED HPI GENERAL MEDICAL PROBLEM - General Chief Complaint: Respiratory Problem Stated Complaint: COUGH AND SOB Time Seen by Provider: 09/20/18 16:15 Source of Information: Reports: Patient, RN Notes Reviewed History Limitations: Reports: No Limitations - History of Present Illness INITIAL COMMENTS - FREE TEXT/NARRATIVE: Patient is a 78 year old male who presents to the ED for the evaluation of cough and a dry throat. He was just discharged from our ED by myself and was in the waiting room when he had a coughing spell, and felt his throat get dry, and he couldn't catch his breath. He checked back into the ED. He states that he feels as if his throat is really dry and when he starts coughing, he cannot stop. He did take his OTC cough medication in the waiting room, along with one of donn talley I had prescribed. - Related Data Allergies Allergy/AdvReac Type Severity Reaction Status Date / Time glipizide [From Glucotrol] Allergy Other Verified 09/20/18 11:10 ibuprofen Allergy Other Verified 09/20/18 11:10 metformin Allergy Other Verified 09/20/18 11:10 pioglitazone [From Actos] Allergy Other Verified 09/20/18 11:10 codeine AdvReac Nausea and Verified 09/20/18 11:10 Vomiting fish oil AdvReac Nausea and Verified 09/20/18 11:10 Vomiting Home Meds: Home Meds Aspirin [Adult Low Dose Aspirin EC] 81 mg PO DAILY 03/05/14 [History] Clopidogrel [Plavix] 75 mg PO DAILY 03/05/14 [History] Isosorbide Mononitrate [Imdur] 120 mg PO DAILY 03/05/14 [History] Nitroglycerin [Nitrostat] 0.4 mg SL ASDIRECTED PRN 03/05/14 [History] Polyethylene Glycol 1000 [Polyethylene Glycol] 1 scoop PO ASDIRECTED 03/05/14 [ History] Acetaminophen [Acetaminophen Extra Strength] 1,000 mg PO BID PRN 10/15/14 [ History] Insulin Aspart [Novolog Flexpen] 14 unit SQ TIDMEALS 10/15/14 [History] Ranolazine [Ranexa] 500 mg PO BID 12/28/14 [History] Fluticasone Propionate [Flonase] 2 spray NS DAILY 03/30/16 [History] Pantoprazole [ProTONIX] 40 mg PO DAILY 03/30/16 [History] Budesonide [Pulmicort] 0.25 mg INH BID 06/30/16 [History] Furosemide [Lasix] 40 mg PO DAILY 06/30/16 [History] Levothyroxine Sodium [Synthroid] 50 mcg PO DAILY 06/30/16 [History] Montelukast [Singulair] 10 mg PO BEDTIME 06/30/16 [History] Ondansetron [Zofran ODT] 4 mg PO TID PRN 06/30/16 [History] Rosuvastatin [Crestor] 20 mg PO DAILY 06/30/16 [History] Tamsulosin [Flomax] 0.8 mg PO BEDTIME 06/30/16 [History] Captopril 50 mg PO BIDAC 06/17/17 [History] Gabapentin [Neurontin] 300 mg PO BID 06/17/17 [History] Umeclidinium [place] [Incruse Ellipta*] 62.5 mcg IH DAILY 06/17/17 [History] Apixaban [Eliquis] 5 mg PO BID 08/28/17 [History] Insulin Glargine,Hum.Rec.Anlog [Basaglar Kwikpen U-100] 42 units SQ BID [History] Mineral Oil/Petrolatum Oint [Lacri-Lube S.O.P Oint] 3.5 gm EYEBOTH BEDTIME 08/28 [History] Triamcinolone Acetonide [Triamcinolone Acetonide 0.1% Crm] 1 applic TOP DAILY PRN 08/29/17 [History] Metoprolol Tartrate [Lopressor] 50 mg PO BID #60 tablet 09/01/17 [Rx] Arformoterol [Brovana] 15 mcg NEB BID 01/27/18 [History] Gabapentin [Neurontin] 100 mg PO BID 01/27/18 [History] Mupirocin Calcium [Mupirocin] 1 applic TOP BID 01/27/18 [History] Past Medical History HEENT History: Reports: Impaired Vision Other HEENT History: wears glasses Cardiovascular History: Reports: High Cholesterol, Hypertension, [place] Respiratory History: Reports: COPD, SOB, Other (See Below) Other Respiratory History: emphasema Gastrointestinal History: Reports: GERD Genitourinary History: Reports: None Musculoskeletal History: Reports: Back Pain, Chronic, Osteoarthritis Neurological History: Reports: Headaches, Chronic Other Neuro History: Stroke in 1971 Endocrine/Metabolic History: Reports: Diabetes, Type II Hematologic History: Reports: None Other Hematologic History: hypomagnesemia Oncologic (Cancer) History: Reports: None Dermatologic History: Reports: None Other Dermatologic History: seborrheic keratosis - Infectious Disease History Infectious Disease History: Reports: Influenza, Measles - Past Surgical History Head Surgeries/Procedures: Reports: None Cardiovascular Surgical History: Reports: Coronary Artery Stent GI Surgical History: Reports: Colonoscopy Social & Family History - Family History Family Medical History: Noncontributory - Tobacco Use Smoking Status *Q: Former Smoker Used Tobacco, but Quit: Yes Month/Year Tobacco Last Used: 5 yrs - Caffeine Use Caffeine Use: Reports: Coffee, Soda, Tea Other Caffeine Use: states he has one every once in awhile when he feels like it. - Recreational Drug Use Recreational Drug Use: No ED ROS GENERAL - Review of Systems Review Of Systems: ROS reveals no pertinent complaints other than HPI. ED EXAM, GENERAL - Physical Exam Exam: See Below Exam Limited By: No Limitations General Appearance: Alert, WD/WN, Mild Distress (pt is coughing but is able to talk to me and catch his breath.) Throat/Mouth: Normal Inspection, Normal Gums, Normal Oropharynx, Normal Voice, No Airway Compromise Respiratory/Chest: No Respiratory Distress, Lungs Clear, Normal Breath Sounds, No Accessory Muscle Use, Chest Non-Tender Cardiovascular: Normal Peripheral Pulses, Regular Rate, Rhythm, No Murmur Extremities: Normal Inspection, Normal Capillary Refill Neurological: Alert, Oriented, Normal Cognition, No Motor/Sensory Deficits Psychiatric: Normal Affect, Normal Mood Skin Exam: Warm, Dry, Intact, Normal Color, No Rash Course - Vital Signs Last Recorded V/S: Last Vital Signs Temp 96.9 F 09/20/18 16:01 Pulse 91 09/20/18 16:01 Resp 20 09/20/18 16:01 BP 189/101 H 09/20/18 16:01 Pulse Ox 100 09/20/18 16:34 - Orders/Labs/Meds Orders: Active Orders 24 hr Category Date Time Status RT Aerosol Therapy [RC] ASDIRECTED Care 09/20/18 16:34 Active - Re-Assessments/Exams Free Text/Narrative Re-Assessment/Exam: 09/20/18 17:21 Pt presents to the ED for the evaluation of a cough with a dry throat. Extensive conversation regarding the need for humidification during this URI. He understands that he will need to obtain a humidifier for his oxygen concentrator from [employer]. This most likely won't be done until Saturday after his visit with his doctor. I have ordered a large volume saline nebulizer to provide him with humidification here to see if this doesn't help. I will recommend that he obtain a cool mist humidifier for home use. If he can't afford one, will recommend that he steam up the bathroom with the shower and utilize that for this weekend until his visit with PCP. 09/20/18 17:57 Influrenza screen is negative. Ambulance was called for possible transfer with o2 humidification. They are willing to transport the patient home. 09/20/18 18:21 Ambulance cannot get his motorized wheelchair onto ambulance, but public transport is dispatched to come pick him up to take him home. Departure - Departure Time of Disposition: 17:57 Disposition: Home, Self-Care 01 Condition: Fair Clinical Impression: Cough - Discharge Information *PRESCRIPTION DRUG MONITORING PROGRAM REVIEWED*: No *COPY OF PRESCRIPTION DRUG MONITORING REPORT IN PATIENT FIOR: No Instructions: Cool Mist Vaporizer, Cough, Adult, [id number] Referrals: Saleem Guillermo Jr, MD [Primary Care Provider] - Forms: ED Department Discharge Additional Instructions: You have been evaluated in the ED for your cough and dry throat, please follow all previous discharge instructions. Please inquire about humidification for your home oxygen machine with your doctor on Saturday at your appointment. You may turn shower on and steam up the bathroom for additional humidification at your home if needed. Please return to the ED if your symptoms should change or worsen. - My Orders Last 24 Hours: My Active Orders 09/20/18 16:34 RT Aerosol Therapy [RC] ASDIRECTED - Assessment/Plan Last 24 Hours: My Active Orders 09/20/18 16:34 RT Aerosol Therapy [RC] ASDIRECTED
== END 2018-09-20 18:46 | disposition home or self-care (01) ==
LOC: JD.ED 15:42
DX: R05 Cough (principal); I10 Essential (primary) hypertension; I25.2 Old myocardial infarction; E11.9 Type 2 diabetes mellitus without complications; J44.9 Chronic obstructive pulmonary disease, unspecified; Z88.5 Allergy status to narcotic agent; Z88.8 Allergy status to other drugs, medicaments and biological substances; Z91.013 Allergy to seafood; Z79.82 Long term (current) use of aspirin; Z79.899 Other long term (current) drug therapy; Z87.891 Personal history of nicotine dependence
CPT/HCPCS: 87804; 94664; 99284-25

== ENCOUNTER 2018-09-30 13:59 | Inpatient (IN) | payer MEDICARE, MEDICAID ==
--- NOTE | 2018-09-30 14:13 | EDM.PDOC ---
ED HPI GENERAL MEDICAL PROBLEM - General Chief Complaint: Respiratory Problem Stated Complaint: PT CAME BY AMBULANCE Time Seen by Provider: 09/30/18 14:04 Source of Information: Reports: Patient, EMS Notes Reviewed, RN Notes Reviewed History Limitations: Reports: No Limitations - History of Present Illness INITIAL COMMENTS - FREE TEXT/NARRATIVE: Patient is a 78 year old male who presents to the ED via ambulance for the evaluation of fevers/cough. The patient has had this cough for 1.5-2 weeks now. He has been taking regular OTC cold medications. He did have an appointment with his PCP on Saturday and he was feeling better, but over the weekend the patient states that he believes he has developed fever and body aches all over. He states that he feels as if he has been hit by a truck. He is now having a productive cough with which he brings up greenish sputum. He does note a history of COPD and pneumonia that required hospitalization. He states that his PCP did give him a medication, but cannot recall the name of the medication. This was for his cough; he did think that provided some relief. He states that over the weekend his blood sugars have been not well controlled. Generalized Pain Score (Numeric/FACES): 10 - Related Data Allergies Allergy/AdvReac Type Severity Reaction Status Date / Time glipizide [From Glucotrol] Allergy Other Verified 09/30/18 14:08 ibuprofen Allergy Other Verified 09/30/18 14:08 metformin Allergy Other Verified 09/30/18 14:08 pioglitazone [From Actos] Allergy Other Verified 09/30/18 14:08 codeine AdvReac Nausea and Verified 09/30/18 14:08 Vomiting fish oil AdvReac Nausea and Verified 09/30/18 14:08 Vomiting Home Meds: Home Meds Clopidogrel [Plavix] 75 mg PO DAILY 03/05/14 [History] Isosorbide Mononitrate [Imdur] 120 mg PO DAILY 03/05/14 [History] Nitroglycerin [Nitrostat] 0.4 mg SL ASDIRECTED PRN 03/05/14 [History] Polyethylene Glycol 1000 [Polyethylene Glycol] 1 scoop PO ASDIRECTED 03/05/14 [ History] Acetaminophen [Acetaminophen Extra Strength] 1,000 mg PO BID PRN 10/15/14 [ History] Insulin Aspart [Novolog Flexpen] 14 unit SQ TIDMEALS 10/15/14 [History] Ranolazine [Ranexa] 500 mg PO BID 12/28/14 [History] Fluticasone Propionate [Flonase] 2 spray NS DAILY 03/30/16 [History] Pantoprazole [ProTONIX] 40 mg PO DAILY 03/30/16 [History] Budesonide [Pulmicort] 0.25 mg INH BID 06/30/16 [History] Furosemide [Lasix] 40 mg PO DAILY 06/30/16 [History] Levothyroxine Sodium [Synthroid] 50 mcg PO DAILY 06/30/16 [History] Montelukast [Singulair] 10 mg PO BEDTIME 06/30/16 [History] Ondansetron [Zofran ODT] 4 mg PO TID PRN 06/30/16 [History] Rosuvastatin [Crestor] 20 mg PO DAILY 06/30/16 [History] Tamsulosin [Flomax] 0.8 mg PO BEDTIME 06/30/16 [History] Captopril 50 mg PO BIDAC 06/17/17 [History] Gabapentin [Neurontin] 300 mg PO BID 06/17/17 [History] Umeclidinium Markesan [Incruse Ellipta*] 62.5 mcg IH DAILY 06/17/17 [History] Apixaban [Eliquis] 5 mg PO BID 08/28/17 [History] Insulin Glargine,Hum.Rec.Anlog [Basaglar Kwikpen U-100] 42 units SQ BID [History] Triamcinolone Acetonide [Triamcinolone Acetonide 0.1% Crm] 1 applic TOP DAILY PRN 08/29/17 [History] Metoprolol Tartrate [Lopressor] 50 mg PO BID #60 tablet 09/01/17 [Rx] Arformoterol [Brovana] 15 mcg NEB BID 01/27/18 [History] Gabapentin [Neurontin] 100 mg PO BID 01/27/18 [History] Mupirocin Calcium [Mupirocin] 1 applic TOP BID 01/27/18 [History] ALPRAZolam [Xanax] 0.25 mg PO BID PRN 09/30/18 [History] Albuterol [Ventolin HFA] 2 puff INH BID PRN 09/30/18 [History] Azithromycin [Zithromax] 500 mg PO DAILY 09/30/18 [History] Benzonatate 100 mg PO TID 09/30/18 [History] Dextran/Hypromellose/Glycerin [Genteal Tears 0.1%-0.2%-0.3%] 1 drop EYEBOTH BEDTIME 09/30/18 [History] Doxycycline [Vibramycin] 100 mg PO BID 09/30/18 [History] Ofloxacin [Ocuflox 0.3% Ophth Soln] 1 drop EARBOTH BID 09/30/18 [History] Phenol [Chloraseptic] 1 spray PO Q2HR PRN 09/30/18 [History] Promethazine HCl/Codeine [Prometh-Codein 6.25-10 mg/5 ml] 5 ml PO Q8HR PRN 09/30 [History] lamoTRIgine [Lamotrigine] 50 mg PO BEDTIME 09/30/18 [History] predniSONE [Prednisone] 20 mg PO BID 09/30/18 [History] Past Medical History HEENT History: Reports: Impaired Vision Other HEENT History: wears glasses Cardiovascular History: Reports: High Cholesterol, Hypertension, SD Respiratory History: Reports: COPD, SOB, Other (See Below) Other Respiratory History: emphasema Gastrointestinal History: Reports: GERD Genitourinary History: Reports: None Musculoskeletal History: Reports: Back Pain, Chronic, Osteoarthritis Neurological History: Reports: Headaches, Chronic Other Neuro History: Stroke in 1971 Endocrine/Metabolic History: Reports: Diabetes, Type II Hematologic History: Reports: None Other Hematologic History: hypomagnesemia Oncologic (Cancer) History: Reports: None Dermatologic History: Reports: None Other Dermatologic History: seborrheic keratosis - Infectious Disease History Infectious Disease History: Reports: Influenza, Measles - Past Surgical History Head Surgeries/Procedures: Reports: None Cardiovascular Surgical History: Reports: Coronary Artery Stent GI Surgical History: Reports: Colonoscopy Social & Family History - Family History Family Medical History: Noncontributory - Tobacco Use Smoking Status *Q: Former Smoker Used Tobacco, but Quit: Yes Month/Year Tobacco Last Used: 08/2013 Second Hand Smoke Exposure: No - Caffeine Use Caffeine Use: Reports: Coffee, Tea Other Caffeine Use: states he has one every once in awhile when he feels like it. - Recreational Drug Use Recreational Drug Use: No ED ROS GENERAL - Review of Systems Review Of Systems: See Below Constitutional: Reports: Fever, Chills, Malaise HEENT: Reports: No Symptoms Respiratory: Reports: Cough, Sputum. Denies: Shortness of Breath, Wheezing Cardiovascular: Reports: Edema (he states that the edema present is not worse than normal for him. He has been too sick to put on his JAMES hose.). Denies: Chest Pain, Orthopnea Endocrine: Reports: Other (BS not well controlled over the weekend.) : Reports: No Symptoms Musculoskeletal: Reports: Muscle Pain (general muscle aches) Skin: Reports: No Symptoms Neurological: Reports: No Symptoms Psychiatric: Reports: No Symptoms Hematologic/Lymphatic: Reports: No Symptoms Immunologic: Reports: No Symptoms ED EXAM, GENERAL - Physical Exam Exam: See Below Exam Limited By: No Limitations General Appearance: Alert, WD/WN, No Apparent Distress Eye Exam: Bilateral Eye: EOMI, Normal Inspection, PERRL Ears: Normal External Exam Nose: Normal Inspection Throat/Mouth: Normal Inspection, Normal Teeth, Normal Oropharynx, No Airway Compromise Head: Atraumatic, Normocephalic Neck: Normal Inspection, Supple, Non-Tender, Full Range of Motion Respiratory/Chest: No Respiratory Distress, Lungs Clear, No Accessory Muscle Use , Chest Non-Tender, Decreased Breath Sounds (bilaterally) Cardiovascular: Normal Peripheral Pulses, Regular Rate, Rhythm, No JVD, No Murmur GI/Abdominal: Normal Bowel Sounds, Soft, Non-Tender, No Distention, No Abnormal Bruit Back Exam: Normal Inspection Extremities: Normal Inspection, Normal Capillary Refill, Pedal Edema (1+ pitting edema bilaterally) Neurological: Alert, Oriented, Normal Cognition, No Motor/Sensory Deficits Psychiatric: Normal Affect, Normal Mood Skin Exam: Warm, Dry, Intact, Normal Color, No Rash Course - Vital Signs Last Recorded V/S: Last Vital Signs Temp 98.8 F 09/30/18 18:22 Pulse 99 09/30/18 18:22 Resp 22 H 09/30/18 18:22 BP 164/90 H 09/30/18 19:00 Pulse Ox 95 09/30/18 22:01 - Orders/Labs/Meds Orders: Active Orders 24 hr Category Date Time Status Peripheral IV Care [RC] Q2HR Care 09/30/18 16:09 Active RT Aerosol Therapy [RC] ASDIRECTED Care 09/30/18 16:08 Active CULTURE SPUTUM + SMEAR [RM] Stat Lab 09/30/18 16:15 Results Sodium Chloride 0.9% [Saline Flush] Med 09/30/18 16:09 Active 10 ml FLUSH ASDIRECTED PRN Peripheral IV Insertion Adult [OM.PC] Routine Oth 09/30/18 16:09 Ordered Medication Orders Acetaminophen (Tylenol) 650 mg PO Q4H PRN PRN Reason: Pain (Mild 1-3)/fever Hydrocodone Bitart/Acetaminophen ([place] 325-5 Mg) 1 tab PO Q4H PRN PRN Reason: Pain (moderate 4-6) Albuterol (Proventil Neb Soln) 2.5 mg NEB Q2H PRN PRN Reason: Shortness Of Breath/wheezing Albuterol/Ipratropium (Duoneb 3.0-0.5 Mg/3 Ml) 3 ml NEB Q4H PRN PRN Reason: Shortness Of Breath/wheezing Alprazolam (Xanax) 0.25 mg PO BID PRN PRN Reason: Anxiety Apixaban (Eliquis) 5 mg PO BID [facility] Benzonatate (Tessalon Perles) 100 mg PO TID [facility] Bisacodyl (Dulcolax) 5 mg PO DAILY PRN PRN Reason: Constipation Budesonide (Pulmicort) 0.25 mg INH BIDRT [facility] Last Admin: 09/30/18 22:00 Dose: 0.25 mg Captopril (Capoten) 50 mg PO BIDAC [facility] Clopidogrel Bisulfate (Plavix) 75 mg PO DAILY [facility] Dextrose/Water (Dextrose 50% In Water) 50 ml IVPUSH ASDIRECTED PRN PRN Reason: Hypoglycemia Docusate Sodium (Colace) 100 mg PO BID PRN PRN Reason: Constipation Flunisolide (Nasalide Nasal [place]) 0 ml GISEL BID [facility] Furosemide (Lasix) 40 mg PO DAILY [facility] Gabapentin (Neurontin) 100 mg PO BID [facility] Gabapentin (Neurontin) 300 mg PO BID [facility] Glycopyrrolate (Seebri Neohaler) 0 mcg IH BID [facility] Hydralazine HCl (Apresoline) 10 mg IVPUSH Q4H PRN PRN Reason: Hypertension Hydromorphone HCl (Dilaudid) 0.25 mg IVPUSH Q2H PRN PRN Reason: Pain (severe 7-10) Azithromycin 500 mg/ Sodium (Chloride) 250 mls @ 250 mls/hr IV Q24H [facility] Promethazine HCl 6.25 mg/ (Sodium Chloride) 50.25 mls @ 100 mls/hr IV Q6H PRN PRN Reason: Nausea/Vomiting Ceftriaxone Sodium 2 gm/ (Sodium Chloride) 100 mls @ 200 mls/hr IV Q24H [facility] Insulin Human Lispro (Humalog) 0 unit SUBCUT QIDACANDBED [facility]; Protocol Isosorbide Mononitrate (Imdur) 120 mg PO DAILY [facility] Lamotrigine (Lamotrigine) 50 mg PO BEDTIME [facility] Levothyroxine Sodium (Synthroid) 50 mcg PO ACBREAKFAST [facility] Lorazepam (Ativan) 2 mg IVPUSH Q4H PRN PRN Reason: Seizures Magnesium Hydroxide (Milk Of Magnesia) 30 ml PO Q12H PRN PRN Reason: Constipation Metoprolol Tartrate (Lopressor) 5 mg IVPUSH Q4H PRN PRN Reason: Tachycardia Metoprolol Tartrate (Lopressor) 50 mg PO BID [facility] Montelukast Sodium (Singulair) 10 mg PO BEDTIME [facility] Mupirocin (Bactroban Oint) 0 gm TOP BID [facility] Nitroglycerin (Nitrostat) 0.4 mg SL ASDIRECTED PRN PRN Reason: Chest Pain Non-Formulary Medication (Acetaminophen) 1,000 mg PO BID PRN PRN Reason: Pain Non-Formulary Medication (Dextran/Hypromellose/Glycerin [Genteal Tears 0.1%-0.2% -0.3%]) 1 drop EYEBOTH BEDTIME [facility] Non-Formulary Medication (Arformoterol) 15 mcg NEB BID [facility] Pantoprazole Sodium (Protonix) 40 mg PO DAILY@0700 [facility] Phenol/Menthol (Chloraseptic Throat [place]) 0 ml MUCMEM Q2H PRN PRN Reason: SORE THROAT Polyethylene Glycol (Miralax) 17 gm PO DAILY PRN PRN Reason: Constipation Prednisone (Prednisone) 20 mg PO BID [facility] Promethazine HCl/Codeine (Phenergan With Codeine) 5 ml PO Q8H PRN PRN Reason: COUGH Ranolazine (Ranexa) 500 mg PO BID [facility] Rosuvastatin Calcium (Crestor) 20 mg PO DAILY [facility] Saccharomyces Boulardii (Florastor) 250 mg PO BID [facility] Senna/Docusate Sodium (Senna Plus) 1 tab PO BID PRN PRN Reason: Constipation Sodium Chloride (Saline Flush) 10 ml FLUSH ASDIRECTED PRN PRN Reason: Keep Vein Open Last Admin: 09/30/18 16:37 Dose: 10 ml Tamsulosin HCl (Flomax) 0.8 mg PO BEDTIME [facility] Triamcinolone Acetonide (Triamcinolone Acetonide 0.1% Crm) 0 gm TOP DAILY PRN PRN Reason: Rash Labs: Laboratory Tests 09/30/18 09/30/18 09/30/18 Range/Units 15:40 15:40 15:40 WBC 13.45 H (4.23-9.07) K/mm3 RBC 3.90 L (4.63-6.08) M/mm3 Hgb 11.2 L (13.7-17.5) gm/L Hct 36.3 L (40.1-51.0) % MCV 93.1 H (79.0-92.2) fl MCH 28.7 (25.7-32.2) pg MCHC 30.9 L (32.2-35.5) g/dl RDW Std Deviation 47.9 H (35.1-43.9) fL Plt Count 124 L (163-337) K/mm3 MPV 10.0 (9.4-12.3) fl Neutrophils % (Manual) 85 H (40-60) % Band Neutrophils % 0 (0-10) % Lymphocytes % (Manual) 8 L (20-40) % Atypical Lymphs % 0 % Monocytes % (Manual) 6 (2-10) % Eosinophils % (Manual) 1 (0.8-7.0) % Basophils % (Manual) 0 L (0.2-1.2) Toxic Granulation Few Platelet Estimate Decreased Plt Morphology Comment See note Polychromasia Few RBC Morph Comment Normal Sodium 141 (136-145) mEq/L Potassium 4.0 (3.5-5.1) mEq/L Chloride 102 (98-107) mEq/L Carbon Dioxide 35 H (21-32) mEq/L Anion Gap 8.0 (5-15) BUN 19 H (7-18) mg/dL Creatinine 1.6 H (0.7-1.3) mg/dL Est Cr Clr Drug Dosing 45.48 mL/min Estimated GFR (MDRD) 42 (>60) mL/min BUN/Creatinine Ratio 11.9 L (14-18) Glucose 168 H (83-115) mg/dL POC Glucose (83-110) mg/dL Calcium 8.4 L (8.5-10.1) mg/dL Total Bilirubin 0.9 (0.2-1.0) mg/dL AST 13 L (15-37) U/L ALT 20 (16-63) U/L Alkaline Phosphatase 75 (46-116) U/L C-Reactive Protein 6.6 H* (<1.0) mg/dL Total Protein 6.4 (6.4-8.2) g/dl Albumin 3.0 L (3.4-5.0) g/dl Globulin 3.4 gm/dL Albumin/Globulin Ratio 0.9 L (1-2) Mycoplasma pneumon IgM (NEGATIVE) 09/30/18 09/30/18 Range/Units 15:40 16:32 WBC (4.23-9.07) K/mm3 RBC (4.63-6.08) M/mm3 Hgb (13.7-17.5) gm/L Hct (40.1-51.0) % MCV (79.0-92.2) fl MCH (25.7-32.2) pg MCHC (32.2-35.5) g/dl RDW Std Deviation (35.1-43.9) fL Plt Count (163-337) K/mm3 MPV (9.4-12.3) fl Neutrophils % (Manual) (40-60) % Band Neutrophils % (0-10) % Lymphocytes % (Manual) (20-40) % Atypical Lymphs % % Monocytes % (Manual) (2-10) % Eosinophils % (Manual) (0.8-7.0) % Basophils % (Manual) (0.2-1.2) Toxic Granulation Platelet Estimate Plt Morphology Comment Polychromasia RBC Morph Comment Sodium (136-145) mEq/L Potassium (3.5-5.1) mEq/L Chloride (98-107) mEq/L Carbon Dioxide (21-32) mEq/L Anion Gap (5-15) BUN (7-18) mg/dL Creatinine (0.7-1.3) mg/dL Est Cr Clr Drug Dosing mL/min Estimated GFR (MDRD) (>60) mL/min BUN/Creatinine Ratio (14-18) Glucose (83-115) mg/dL POC Glucose 154 H (83-110) mg/dL Calcium (8.5-10.1) mg/dL Total Bilirubin (0.2-1.0) mg/dL AST (15-37) U/L ALT (16-63) U/L Alkaline Phosphatase (46-116) U/L C-Reactive Protein (<1.0) mg/dL Total Protein (6.4-8.2) g/dl Albumin (3.4-5.0) g/dl Globulin gm/dL Albumin/Globulin Ratio (1-2) Mycoplasma pneumon IgM Negative (NEGATIVE) Meds: Medications Generic Name Dose Route Start Last Admin Trade Name Freq PRN Reason Stop Dose Admin Acetaminophen 650 mg 09/30/18 18:52 Tylenol PO Q4H PRN Pain (Mild 1-3)/fever Hydrocodone Bitart/Acetaminophen 1 tab 09/30/18 18:52 [place] 325-5 Mg PO Q4H PRN Pain (moderate 4-6) Albuterol 2.5 mg 09/30/18 18:52 Proventil Neb Soln NEB Q2H PRN Shortness Of Breath/wheezing Albuterol/Ipratropium 3 ml 09/30/18 18:52 Duoneb 3.0-0.5 Mg/3 Ml NEB Q4H PRN Shortness Of Breath/wheezing Alprazolam 0.25 mg 09/30/18 18:41 Xanax PO BID PRN Anxiety Apixaban 5 mg 09/30/18 21:00 Eliquis PO BID [facility] Benzonatate 100 mg 09/30/18 21:00 Tessalon Perles PO TID [facility] Bisacodyl 5 mg 09/30/18 18:52 Dulcolax PO DAILY PRN Constipation Budesonide 0.25 mg 09/30/18 21:00 09/30/18 22:00 Pulmicort INH 0.25 mg BIDRT [facility] Administration Captopril 50 mg 10/01/18 06:00 Capoten PO BIDAC [facility] Clopidogrel Bisulfate 75 mg 10/01/18 09:00 Plavix PO DAILY [facility] Dextrose/Water 50 ml 09/30/18 18:33 Dextrose 50% In Water IVPUSH ASDIRECTED PRN Hypoglycemia Docusate Sodium 100 mg 09/30/18 18:52 Colace PO BID PRN Constipation Flunisolide 0 ml 10/01/18 09:00 Nasalide Nasal [place] GISEL BID [facility] Furosemide 40 mg 10/01/18 09:00 Lasix PO DAILY [facility] Gabapentin 100 mg 09/30/18 21:00 Neurontin PO BID [facility] Gabapentin 300 mg 09/30/18 21:00 Neurontin PO BID [facility] Glycopyrrolate 0 mcg 10/01/18 09:00 Seebri Neohaler IH BID [facility] Hydralazine HCl 10 mg 09/30/18 18:33 Apresoline IVPUSH Q4H PRN Hypertension Hydromorphone HCl 0.25 mg 09/30/18 18:52 Dilaudid IVPUSH Q2H PRN Pain (severe 7-10) Azithromycin 500 mg/ Sodium 250 mls @ 250 mls/hr 09/30/18 20:00 Chloride IV Q24H [facility] Promethazine HCl 6.25 mg/ 50.25 mls @ 100 mls/hr 09/30/18 18:52 Sodium Chloride IV Q6H PRN Nausea/Vomiting Ceftriaxone Sodium 2 gm/ 100 mls @ 200 mls/hr 10/01/18 17:00 Sodium Chloride IV Q24H [facility] Insulin Human Lispro 0 unit 09/30/18 22:00 Humalog SUBCUT QIDACANDBED [facility] Protocol Isosorbide Mononitrate 120 mg 10/01/18 09:00 Imdur PO DAILY [facility] Lamotrigine 50 mg 09/30/18 21:00 Lamotrigine PO BEDTIME [facility] Levothyroxine Sodium 50 mcg 10/01/18 06:00 Synthroid PO ACBREAKFAST [facility] Lorazepam 2 mg 09/30/18 18:47 Ativan IVPUSH Q4H PRN Seizures Magnesium Hydroxide 30 ml 09/30/18 18:52 Milk Of Magnesia PO Q12H PRN Constipation Metoprolol Tartrate 5 mg 09/30/18 18:33 Lopressor IVPUSH Q4H PRN Tachycardia Metoprolol Tartrate 50 mg 09/30/18 21:00 Lopressor PO BID [facility] Montelukast Sodium 10 mg 09/30/18 21:00 Singulair PO BEDTIME [facility] Mupirocin 0 gm 02/05/19 21:00 Bactroban Oint TOP BID [facility] Nitroglycerin 0.4 mg 09/30/18 18:41 Nitrostat SL ASDIRECTED PRN Chest Pain Non-Formulary Medication 1,000 mg 09/30/18 18:41 Acetaminophen PO BID PRN Pain Non-Formulary Medication 1 drop 09/30/18 21:00 Dextran/Hypromellose/Glycerin [Genteal Tears 0.1%-0.2%-0.3%] EYEBOTH BEDTIME [facility] Non-Formulary Medication 15 mcg 09/30/18 21:00 Arformoterol NEB BID [facility] Pantoprazole Sodium 40 mg 10/01/18 07:00 Protonix PO DAILY@0700 [facility] Phenol/Menthol 0 ml 09/30/18 19:45 Chloraseptic Throat [place] MUCMEM Q2H PRN SORE THROAT Polyethylene Glycol 17 gm 09/30/18 18:52 Miralax PO DAILY PRN Constipation Prednisone 20 mg 09/30/18 21:00 Prednisone PO BID [facility] Promethazine HCl/Codeine 5 ml 09/30/18 19:43 Phenergan With Codeine PO Q8H PRN COUGH Ranolazine 500 mg 09/30/18 21:00 Ranexa PO BID [facility] Rosuvastatin Calcium 20 mg 10/01/18 09:00 Crestor PO DAILY [facility] Saccharomyces Boulardii 250 mg 09/30/18 21:00 Florastor PO BID [facility] Senna/Docusate Sodium 1 tab 09/30/18 18:52 Senna Plus PO BID PRN Constipation Sodium Chloride 10 ml 09/30/18 16:09 09/30/18 16:37 Saline Flush FLUSH 10 ml ASDIRECTED PRN Administration Keep Vein Open Tamsulosin HCl 0.8 mg 09/30/18 21:00 Flomax PO BEDTIME [facility] Triamcinolone Acetonide 0 gm 09/30/18 18:46 Triamcinolone Acetonide 0.1% Crm TOP DAILY PRN Rash Discontinued Medications Generic Name Dose Route Start Last Admin Trade Name Freq PRN Reason Stop Dose Admin Acetaminophen 650 mg 09/30/18 14:29 09/30/18 14:58 Tylenol PO 09/30/18 14:30 650 mg NOW ONE Administration Albuterol/Ipratropium 3 ml 09/30/18 16:08 09/30/18 16:19 Duoneb 3.0-0.5 Mg/3 Ml NEB 09/30/18 16:09 3 ml ONETIME ONE Administration Apixaban 5 mg 09/30/18 21:00 Eliquis PO BIDRT [facility] Ceftriaxone Sodium 2 gm 09/30/18 18:45 09/30/18 20:49 Rocephin IVPUSH Not Given Q24H [facility] Famotidine 20 mg 09/30/18 21:00 Pepcid PO BID [facility] Hydralazine HCl 10 mg 09/30/18 15:34 09/30/18 15:58 Apresoline PO 09/30/18 15:35 10 mg ONETIME ONE Administration Ceftriaxone Sodium 1 gm/ 100 mls @ 200 mls/hr 09/30/18 16:09 09/30/18 16:35 Sodium Chloride IV 09/30/18 16:38 200 mls/hr ONETIME ONE Administration Ceftriaxone Sodium 1 gm/ 100 mls @ 200 mls/hr 09/30/18 19:30 Sodium Chloride IV 09/30/18 19:59 ONETIME ONE - Re-Assessments/Exams Free Text/Narrative Re-Assessment/Exam: 09/30/18 14:32 Pt presents to the ED for his worsening cough/fever. I did evaluate him on 09/20 at that time his sickness was likely due to viral URI. He presents today and looks as if he feels much worse; with sudden onset of fever over the weekend. Have ordered CBC, CMP, CXR, and influenza swab for further evaluation. I have also ordered 650mg Tylenol for general aches. 09/30/18 15:35 RN informed me that the patient's BP is steady in the 170s-200s systolically. Have ordered 10mg hydralazine to see if this doesn't help lower it. 09/30/18 16:13 Pt x-ray is suggestive for right lower lobe pneumonia, as read per radiologist. His WBC is 13.45 today, which is increased from last stay. Have ordered 1gram Rocephin IV and duoneb with a CRP added to labs. He will likely need hospitalization for a few days, will call hospitalist for possible admission after more labs have come back. Departure - Departure Time of Disposition: 17:23 Disposition: DC/Tfer to [facility] Condition: Fair Clinical Impression: Pneumonia Qualifiers: Pneumonia type: due to unspecified organism Laterality: right Lung location: lower lobe of lung Qualified Code(s): J18.1 - Lobar pneumonia, unspecified organism - Discharge Information - My Orders Last 24 Hours: My Active Orders 09/30/18 16:08 RT Aerosol Therapy [RC] ASDIRECTED 09/30/18 16:09 Peripheral IV Care [RC] Q2HR Sodium Chloride 0.9% [Saline Flush] 10 ml FLUSH ASDIRECTED PRN Peripheral IV Insertion Adult [OM.PC] Routine 09/30/18 16:15 CULTURE SPUTUM + SMEAR [RM] Stat - Assessment/Plan Last 24 Hours: My Active Orders 09/30/18 16:08 RT Aerosol Therapy [RC] ASDIRECTED 09/30/18 16:09 Peripheral IV Care [RC] Q2HR Sodium Chloride 0.9% [Saline Flush] 10 ml FLUSH ASDIRECTED PRN Peripheral IV Insertion Adult [OM.PC] Routine 09/30/18 16:15 CULTURE SPUTUM + SMEAR [RM] Stat
[2018-09-30] MEDS ORDERED: Acetaminophen 325 MG Tab PO ONE (14:29)
--- NOTE | 2018-09-30 15:30 | CR ---
Chest: Two views of the chest were obtained. Comparison: Prior chest x-ray of 09/20/18. Increased density is identified within both lung bases. Findings on the left side appeared to mostly represent scarring. Findings on the right side are an interval change from previous study. Upper lungs are clear. Heart size is normal. Tortuous thoracic aorta is seen. Bony structures appear within normal limits for the patient's age. Impression: 1. Findings suspicious for mild area of pneumonia with the right lung base. 2. Slight scarring within the left lung base. Diagnostic code #3
[2018-09-30] MEDS ORDERED: hydrALAZINE 10 MG Tab PO ONE (15:34)
[2018-09-30] MEDS ORDERED: Albuterol/Ipratropium 3.0-0.5 MG/3 ML Neb Soln NEB ONE (16:08)
[2018-09-30] MEDS ORDERED: cefTRIAXone 1 GM in Sodium Chloride 0.9% 100 ML IV ONE ×2 (16:09→19:30)
[2018-09-30] MEDS ORDERED: Sodium Chloride 0.9% 10 ML Syringe FLUSH PRN (16:09)
--- NOTE | 2018-09-30 18:11 | PCM.HP ---
H&P History of Present Illness - General Date of Service: 09/30/18 Admit Problem/Dx: Admission Diagnosis/Problem Admission Diagnosis/Problem Pneumonia Source of Information: Patient, Provider History Limitations: Reports: No Limitations - History of Present Illness Initial Comments - Free Text/Narative: This is a 78 yo male with past medical h/o HTN, HLD, CKD III, IN, CAD s/p Coronary Artery Stent, CHF, COPD, GERD, OA, DM2, Hypomagnesemia, Migraines, Hypothyroid, BPH, Obesity who comes in for PNA. He c/o F/C, body aches, productive cough x 1.5-2 weeks. Denies chest pain, N/V/D, abdominal pain, GI/ complaints. Taking OTC cold medications with no relief. His initial workup in the ED shows a CBC remarkable for WBC 13.45, RBC 3.9, Hgb 11.2, Hct 36.3, MCV 93.1, MCHC 30.9, RDQ 47.9, Plt 124, Neut 85%, Lymph 8%. His chemistry is remarkable for CO2 35, BUN 19, Cr 1.6, GFR 42, Glu 168, Ca 8.4, AST 13, CRP 6.6, Albumin 3. CXR shows findings suspicious for mild area of pneumonia with the right lung base. He is subsequently admitted to the medical floor. He is a Full Code. PCP is Dr. Saleem Guillermo. Generalized Pain Score (Numeric/FACES): 10 - Related Data Allergies/Adverse Reactions: Allergies Allergy/AdvReac Type Severity Reaction Status Date / Time glipizide [From Glucotrol] Allergy Other Verified 09/30/18 14:08 ibuprofen Allergy Other Verified 09/30/18 14:08 metformin Allergy Other Verified 09/30/18 14:08 pioglitazone [From Actos] Allergy Other Verified 09/30/18 14:08 codeine AdvReac Nausea and Verified 09/30/18 14:08 Vomiting fish oil AdvReac Nausea and Verified 09/30/18 14:08 Vomiting Home Medications: Home Meds Clopidogrel [Plavix] 75 mg PO DAILY 03/05/14 [History] Isosorbide Mononitrate [Imdur] 120 mg PO DAILY 03/05/14 [History] Nitroglycerin [Nitrostat] 0.4 mg SL ASDIRECTED PRN 03/05/14 [History] Polyethylene Glycol 1000 [Polyethylene Glycol] 1 scoop PO ASDIRECTED 03/05/14 [ History] Acetaminophen [Acetaminophen Extra Strength] 1,000 mg PO BID PRN 10/15/14 [ History] Insulin Aspart [Novolog Flexpen] 14 unit SQ TIDMEALS 10/15/14 [History] Ranolazine [Ranexa] 500 mg PO BID 12/28/14 [History] Fluticasone Propionate [Flonase] 2 spray NS DAILY 03/30/16 [History] Pantoprazole [ProTONIX] 40 mg PO DAILY 03/30/16 [History] Budesonide [Pulmicort] 0.25 mg INH BID 06/30/16 [History] Furosemide [Lasix] 40 mg PO DAILY 06/30/16 [History] Levothyroxine Sodium [Synthroid] 50 mcg PO DAILY 06/30/16 [History] Montelukast [Singulair] 10 mg PO BEDTIME 06/30/16 [History] Ondansetron [Zofran ODT] 4 mg PO TID PRN 06/30/16 [History] Rosuvastatin [Crestor] 20 mg PO DAILY 06/30/16 [History] Tamsulosin [Flomax] 0.8 mg PO BEDTIME 06/30/16 [History] Captopril 50 mg PO BIDAC 06/17/17 [History] Gabapentin [Neurontin] 300 mg PO BID 06/17/17 [History] Umeclidinium [place] [Incruse Ellipta*] 62.5 mcg IH DAILY 06/17/17 [History] Apixaban [Eliquis] 5 mg PO BID 08/28/17 [History] Insulin Glargine,Hum.Rec.Anlog [Basaglar Kwikpen U-100] 42 units SQ BID [History] Triamcinolone Acetonide [Triamcinolone Acetonide 0.1% Crm] 1 applic TOP DAILY PRN 08/29/17 [History] Metoprolol Tartrate [Lopressor] 50 mg PO BID #60 tablet 09/01/17 [Rx] Arformoterol [Brovana] 15 mcg NEB BID 01/27/18 [History] Gabapentin [Neurontin] 100 mg PO BID 01/27/18 [History] Mupirocin Calcium [Mupirocin] 1 applic TOP BID 01/27/18 [History] ALPRAZolam [Xanax] 0.25 mg PO BID PRN 09/30/18 [History] Albuterol [Ventolin HFA] 2 puff INH BID PRN 09/30/18 [History] Azithromycin [Zithromax] 500 mg PO DAILY 09/30/18 [History] Benzonatate 100 mg PO TID 09/30/18 [History] Dextran/Hypromellose/Glycerin [Genteal Tears 0.1%-0.2%-0.3%] 1 drop EYEBOTH BEDTIME 09/30/18 [History] Doxycycline [Vibramycin] 100 mg PO BID 09/30/18 [History] Ofloxacin [Ocuflox 0.3% Ophth Soln] 1 drop EARBOTH BID 09/30/18 [History] Phenol [Chloraseptic] 1 spray PO Q2HR PRN 09/30/18 [History] Promethazine HCl/Codeine [Prometh-Codein 6.25-10 mg/5 ml] 5 ml PO Q8HR PRN 09/30 [History] lamoTRIgine [Lamotrigine] 50 mg PO BEDTIME 09/30/18 [History] predniSONE [Prednisone] 20 mg PO BID 09/30/18 [History] Past Medical History HEENT History: Reports: Impaired Vision Other HEENT History: wears glasses Cardiovascular History: Reports: High Cholesterol, Hypertension, IN Respiratory History: Reports: COPD, SOB, Other (See Below) Other Respiratory History: emphasema Gastrointestinal History: Reports: GERD Genitourinary History: Reports: None Musculoskeletal History: Reports: Back Pain, Chronic, Osteoarthritis Neurological History: Reports: Headaches, Chronic Other Neuro History: Stroke in 1971 Endocrine/Metabolic History: Reports: Diabetes, Type II Hematologic History: Reports: None Other Hematologic History: hypomagnesemia Oncologic (Cancer) History: Reports: None Dermatologic History: Reports: None Other Dermatologic History: seborrheic keratosis - Infectious Disease History Infectious Disease History: Reports: Influenza, Measles - Past Surgical History Head Surgeries/Procedures: Reports: None Cardiovascular Surgical History: Reports: Coronary Artery Stent GI Surgical History: Reports: Colonoscopy Social & Family History - Family History Family Medical History: Noncontributory - Tobacco Use Smoking Status *Q: Former Smoker Used Tobacco, but Quit: Yes Month/Year Tobacco Last Used: 08/2013 Second Hand Smoke Exposure: No - Caffeine Use Caffeine Use: Reports: Coffee, Tea Other Caffeine Use: states he has one every once in awhile when he feels like it. - Recreational Drug Use Recreational Drug Use: No H&P Review of Systems - Review of Systems: Review Of Systems: See Below General: Reports: Fever, Chills, Malaise HEENT: Reports: No Symptoms Pulmonary: Reports: Cough, Sputum. Denies: Wheezing, Pleuritic Chest Pain Cardiovascular: Reports: Edema (chronic per pt), Blood Pressure Problem. Denies : Chest Pain, Orthopnea Gastrointestinal: Reports: No Symptoms. Denies: Abdominal Pain, Diarrhea, Nausea, Vomiting Genitourinary: Reports: No Symptoms. Denies: Dysuria, Frequency, Burning, Pain , Urgency Musculoskeletal: Reports: Other (general msucle aches) Skin: Reports: No Symptoms Psychiatric: Reports: Confusion (mild; thought he was in [place], has difficulty answering questions) Neurological: Reports: Confusion (mild; thought he was in [place], has difficulty answering questions), Dizziness. Denies: Numbness, Tingling, Trouble Speaking, Weakness, Change in Speech Hematologic/Lymphatic: Reports: No Symptoms Immunologic: Reports: No Symptoms Exam - Exam Exam: See Below - Vital Signs Vital Signs: Last Vital Signs Temp 98.7 F 09/30/18 14:02 Pulse 89 09/30/18 14:02 Resp 20 09/30/18 14:02 BP 198/75 H 09/30/18 15:58 Pulse Ox 94 L 09/30/18 16:08 Weight: 255 lb - Exam Quality Assessment: Supplemental Oxygen (3L NC; chronic per pt), DVT Prophylaxis General: Alert, Oriented, Cooperative HEENT: Conjunctiva Clear, EACs Clear, EOMI, Hearing Intact, Mucosa Moist & [place] , Nares Patent, Normal Nasal Septum, Posterior Pharynx Clear, PERRLA Neck: Supple, Trachea Midline, 2 Lungs: Normal Respiratory Effort, Decreased Breath Sounds Cardiovascular: Regular Rate, Regular Rhythm GI/Abdominal Exam: Normal Bowel Sounds, Soft, Non-Tender, No Organomegaly, No Distention, No Abnormal Bruit, No Mass, Pelvis Stable (Male) Exam: Deferred Rectal (Males) Exam: Deferred Back Exam: Normal Inspection Extremities: Normal Range of Motion, Non-Tender, Normal Capillary Refill, Pedal Edema (1+ pitting bilaterally) Peripheral Pulses: 2+: Posterior Tibial (L), Posterior Tibial (R), Dorsalis Pedis (L), Dorsalis Pedis (R) Skin: Warm, Dry, Intact Neurological: Cranial Nerves Intact (grossly) Neuro Extensive - Mental Status: Alert, Oriented x3, Normal Mood/Affect, Normal Cognition, Memory Intact Psychiatric: Alert, Normal Affect, Normal Mood - Patient Data Lab Results Last 24 hrs: Laboratory Results - last 24 hr 09/30/18 09/30/18 09/30/18 Range/Units 15:40 15:40 15:40 WBC 13.45 H (4.23-9.07) K/mm3 RBC 3.90 L (4.63-6.08) M/mm3 Hgb 11.2 L (13.7-17.5) gm/L Hct 36.3 L (40.1-51.0) % MCV 93.1 H (79.0-92.2) fl MCH 28.7 (25.7-32.2) pg MCHC 30.9 L (32.2-35.5) g/dl RDW Std Deviation 47.9 H (35.1-43.9) fL Plt Count 124 L (163-337) K/mm3 MPV 10.0 (9.4-12.3) fl Neutrophils % (Manual) 85 H (40-60) % Band Neutrophils % 0 (0-10) % Lymphocytes % (Manual) 8 L (20-40) % Atypical Lymphs % 0 % Monocytes % (Manual) 6 (2-10) % Eosinophils % (Manual) 1 (0.8-7.0) % Basophils % (Manual) 0 L (0.2-1.2) Toxic Granulation Few Platelet Estimate Decreased Plt Morphology Comment See note Polychromasia Few RBC Morph Comment Normal Sodium 141 (136-145) mEq/L Potassium 4.0 (3.5-5.1) mEq/L Chloride 102 (98-107) mEq/L Carbon Dioxide 35 H (21-32) mEq/L Anion Gap 8.0 (5-15) BUN 19 H (7-18) mg/dL Creatinine 1.6 H (0.7-1.3) mg/dL Est Cr Clr Drug Dosing 45.48 mL/min Estimated GFR (MDRD) 42 (>60) mL/min BUN/Creatinine Ratio 11.9 L (14-18) Glucose 168 H (83-115) mg/dL POC Glucose (83-110) mg/dL Calcium 8.4 L (8.5-10.1) mg/dL Total Bilirubin 0.9 (0.2-1.0) mg/dL AST 13 L (15-37) U/L ALT 20 (16-63) U/L Alkaline Phosphatase 75 (46-116) U/L C-Reactive Protein 6.6 H* (<1.0) mg/dL Total Protein 6.4 (6.4-8.2) g/dl Albumin 3.0 L (3.4-5.0) g/dl Globulin 3.4 gm/dL Albumin/Globulin Ratio 0.9 L (1-2) 09/30/18 Range/Units 16:32 WBC (4.23-9.07) K/mm3 RBC (4.63-6.08) M/mm3 Hgb (13.7-17.5) gm/L Hct (40.1-51.0) % MCV (79.0-92.2) fl MCH (25.7-32.2) pg MCHC (32.2-35.5) g/dl RDW Std Deviation (35.1-43.9) fL Plt Count (163-337) K/mm3 MPV (9.4-12.3) fl Neutrophils % (Manual) (40-60) % Band Neutrophils % (0-10) % Lymphocytes % (Manual) (20-40) % Atypical Lymphs % % Monocytes % (Manual) (2-10) % Eosinophils % (Manual) (0.8-7.0) % Basophils % (Manual) (0.2-1.2) Toxic Granulation Platelet Estimate Plt Morphology Comment Polychromasia RBC Morph Comment Sodium (136-145) mEq/L Potassium (3.5-5.1) mEq/L Chloride (98-107) mEq/L Carbon Dioxide (21-32) mEq/L Anion Gap (5-15) BUN (7-18) mg/dL Creatinine (0.7-1.3) mg/dL Est Cr Clr Drug Dosing mL/min Estimated GFR (MDRD) (>60) mL/min BUN/Creatinine Ratio (14-18) Glucose (83-115) mg/dL POC Glucose 154 H (83-110) mg/dL Calcium (8.5-10.1) mg/dL Total Bilirubin (0.2-1.0) mg/dL AST (15-37) U/L ALT (16-63) U/L Alkaline Phosphatase (46-116) U/L C-Reactive Protein (<1.0) mg/dL Total Protein (6.4-8.2) g/dl Albumin (3.4-5.0) g/dl Globulin gm/dL Albumin/Globulin Ratio (1-2) Result Diagrams: 09/30/18 15:40 09/30/18 15:40 Michael Results Last 24 hrs: Microbiology 09/30/18 14:29 Influenza Type A Antigen Screen - Final Nasopharyngeal Swab NEGATIVE INFLUENZA A VIRUS AG Influenza Type B Antigen Screen - Final NEGATIVE INFLUENZA B VIRUS AG - Problem List (1) HTN (hypertension) SNOMED Code(s): 71615206 ICD Code: I10 - ESSENTIAL (PRIMARY) HYPERTENSION Status: Chronic Priority : Medium Current Visit: Yes Qualifiers: Hypertension type: unspecified Qualified Code(s): I10 - Essential (primary ) hypertension (2) Pneumonia SNOMED Code(s): 248508886 ICD Code: J18.9 - PNEUMONIA, UNSPECIFIED ORGANISM Status: Acute Priority : High Current Visit: Yes Qualifiers: Pneumonia type: due to unspecified organism Laterality: right Lung location: lower lobe of lung Qualified Code(s): J18.1 - Lobar pneumonia, unspecified organism (3) Dizziness of unknown cause SNOMED Code(s): 710351637 ICD Code: R42 - DIZZINESS AND GIDDINESS Status: Resolved Priority: High Current Visit: Yes (4) Hemoptysis SNOMED Code(s): 89631689 ICD Code: R04.2 - HEMOPTYSIS Status: Acute Priority: High Current Visit : Yes Problem List Initiated/Reviewed/Updated: Yes Orders Last 24hrs: Active Orders 24 hr Category Date Time Status Admission Status [Patient Status] [ADT] Routine ADT 09/30/18 17:19 Active Peripheral IV Care [RC] . DIRECTED Care 09/30/18 16:09 Active RT Aerosol Therapy [RC] ASDIRECTED Care 09/30/18 16:08 Active CULTURE SPUTUM + SMEAR [RM] Stat Lab 09/30/18 16:15 Received Sodium Chloride 0.9% [Saline Flush] Med 09/30/18 16:09 Active 10 ml FLUSH ASDIRECTED PRN Peripheral IV Insertion Adult [OM.PC] Routine Oth 09/30/18 16:09 Ordered Medication Orders Sodium Chloride (Saline Flush) 10 ml FLUSH ASDIRECTED PRN PRN Reason: Keep Vein Open Last Admin: 09/30/18 16:37 Dose: 10 ml Assessment/Plan Comment:: Assessment/Plan: Acute: PNA right lung base * Fever, body aches, productive cough w/ greenish sputum x 1.5-2 weeks * Afebrile, WBC 13.45, CRP 6.6 * 94% on 3L (chronic per pt) * CXR: * 1. Findings suspicious for mild area of pneumonia with the right lung base. * 2. Slight scarring within the left lung base. * RVP, Strep pneumo pending * Mycoplasma negative * Sputum culture--> moderate gram positive cocci; pending culture * Influenza negative * RT/Duonebs/IS/Acapella * Repeat CXR in 2 days * Rocephin started in ED--> Continue and add Azithromycin Hemoptysis * R/O TB * Risk Factors: DM2, COPD, previous smoker (quit 2013), irritation from coughing for weeks, has had 1 sick contact * Denies any recent travel, lives alone * Vit D, Fe pending * Quantiferon TB pending * Airborne precautions HTN * Acute on Chronic * Likely 2/2 not taking all of his HTN medications today * Monitor * PRN Hydralazine CHF * Acute on Chronic * BNP 701, 1+ pitting edema bilaterally * ECHO pending; no recent studies to compare to * Continue at-home Lasix * Lasix IV push PRN Dizziness * Acute on chronic * Vestibular Consult * MRI Brain 04/02/16--> nothing acute seen Mild Confusion * Risk factor: PNA/current illness * Thought he was in [place], has difficulty answering questions * No slurred speech or neurological deficits on exam * Cog Evaluation Chronic: HLD * Lipid panel pending CAD s/p Coronary Artery Stent IN COPD DM2 * Blood Glucose Checks, Insulin sliding scale CKD III GERD OA h/o Hypomagnesemia Migraines BPH Hypothyroid Obesity Plan: Admit to Medical Floor Droplet/Respiratory precautions Routine AM Labs ADA/Heart Healthy diet DVT/GI prophylaxis--> on Protonix and Eliquis CM/SW PT/OT Code Status: Full Code; PCP: Dr. Saleem Guillermo
[2018-09-30] MEDS ORDERED: 50% Dextrose in Water 50 ML Syringe IVPUSH PRN (18:33)
[2018-09-30] MEDS ORDERED: Metoprolol Tartrate 5 MG/5 ML SDV IVPUSH PRN (18:33)
[2018-09-30] MEDS ORDERED: Nitroglycerin 0.4 MG Tab.SL SL PRN (18:41)
[2018-09-30] MEDS ORDERED: ALPRAZolam 0.25 MG Tab PO PRN (18:41)
[2018-09-30] MEDS ORDERED: cefTRIAXone 2 GM Vial IVPUSH SCH (18:45)
[2018-09-30] MEDS ORDERED: Triamcinolone Acetonide 0.1% Crm 15 GM Tube TOP PRN (18:46)
[2018-09-30] MEDS ORDERED: LORazepam 2 MG/ML SDV IVPUSH PRN (18:47)
[2018-09-30] MEDS ORDERED: Magnesium Hydroxide 400 MG/5 ML Susp 30 ML Cup PO PRN (18:52)
[2018-09-30] MEDS ORDERED: Promethazine 6.25 MG in Sodium Chloride 0.9% 50 ML IV PRN (18:52)
[2018-09-30] MEDS ORDERED: Polyethylene Glycol 3350 Powder 17 GM Packet PO PRN (18:52)
[2018-09-30] MEDS ORDERED: HYDROmorphone 1 MG/ML Syringe IVPUSH PRN (18:52)
[2018-09-30] MEDS ORDERED: Docusate Sodium 100 MG Cap PO PRN (18:52)
[2018-09-30] MEDS ORDERED: Albuterol 0.083% 2.5 MG/3 ML Neb Soln NEB PRN (18:52)
[2018-09-30] MEDS ORDERED: Acetaminophen 325 MG Tab PO PRN (18:52)
[2018-09-30] MEDS ORDERED: Bisacodyl 5 MG Tab PO PRN (18:52)
[2018-09-30] MEDS ORDERED: Albuterol/Ipratropium 3.0-0.5 MG/3 ML Neb Soln NEB PRN (18:52)
[2018-09-30] MEDS ORDERED: Acetaminophen/HYDROcodone 325-5 MG Tab PO PRN (18:52)
[2018-09-30] MEDS ORDERED: Codeine/Promethazine 10-6.25 MG/5 ML Syrup 5 ML UD Cup PO PRN (19:43)
[2018-09-30] MEDS ORDERED: [UNRECOGNIZED DRUG - OTHER] EYEBOTH SCH (21:00)
[2018-09-30] MEDS ORDERED: HYPROMELLOSE EYEBOTH SCH (21:00)
[2018-09-30] MEDS ORDERED: Famotidine 20 MG Tab PO SCH (21:00)
[2018-09-30] MEDS ORDERED: DEXTRAN EYEBOTH SCH (21:00)
[2018-09-30] MEDS ORDERED: GLYCERIN EYEBOTH SCH (21:00)
[2018-09-30] MEDS ORDERED: Apixaban 5 MG Tab PO SCH (21:00)
[2018-09-30] MEDS ORDERED: Gabapentin 300 MG Cap PO SCH (21:00)
[2018-09-30] MEDS ORDERED: Gabapentin 100 MG Cap PO SCH (21:00)
[2018-09-30] MEDS ORDERED: ARFORMOTEROL 15 MCG NEB SCH (21:00)
[2018-09-30] MEDS: Budesonide 0.25 MG/2 ML Neb Susp INH SCH (22:00)
[2018-09-30] MEDS: Saccharomyces Boulardii (Probiotic) 250 MG Cap PO SCH (22:31)
[2018-09-30] MEDS: Montelukast 10 MG Tab PO SCH (22:33)
[2018-09-30] MEDS: Apixaban 5 MG Tab PO SCH (22:33)
[2018-09-30] MEDS: lamoTRIgine 100 MG Tab PO SCH (22:34)
[2018-09-30] MEDS: predniSONE 20 MG Tab PO SCH (22:39)
[2018-09-30] MEDS: Tamsulosin 0.4 MG Cap.ER PO SCH (22:40)
[2018-09-30] MEDS: Benzonatate 100 MG Cap PO SCH (22:43)
[2018-09-30] MEDS: Metoprolol Tartrate 50 MG Tab PO SCH (22:44)
[2018-09-30] MEDS: Mupirocin Oint 22 GM Tube TOP SCH (22:46)
[2018-09-30] MEDS: Insulin Lispro 100 UNIT/ML 10 ML VIAL SUBCUT SCH (22:51)
[2018-09-30] MEDS: Azithromycin 500 MG in Sodium Chloride 0.9% 250 ML IV SCH (22:59)
[2018-10-01] MEDS ORDERED: Acetaminophen 325 MG Tab PO PRN (00:41)
[2018-10-01] MEDS: Levothyroxine 50 MCG Tab PO SCH (06:11)
[2018-10-01] MEDS: Pantoprazole 40 MG Tab.CR PO SCH (06:11)
[2018-10-01 06:59] LABS: HEMOGLOBIN A1C 7.8 % (4.50-6.20)
[2018-10-01] MEDS: Budesonide 0.25 MG/2 ML Neb Susp INH SCH ×2 (07:16→21:12)
[2018-10-01 07:28] LABS: VITAMIN D,25-HYDROXY 22.1 ng/ml (30.0-100.0)
[2018-10-01] MEDS: Insulin Lispro 100 UNIT/ML 10 ML VIAL SUBCUT SCH ×4 (09:03→23:19)
[2018-10-01] MEDS: Furosemide 40 MG Tab PO SCH (09:03)
[2018-10-01] MEDS: Rosuvastatin 10 MG Tab PO SCH (09:04)
[2018-10-01] MEDS: Apixaban 5 MG Tab PO SCH ×2 (09:05→20:32)
[2018-10-01] MEDS: Metoprolol Tartrate 50 MG Tab PO SCH ×2 (09:05→20:32)
[2018-10-01] MEDS: Isosorbide Mononitrate 60 MG Tab.ER PO SCH (09:06)
[2018-10-01] MEDS: Clopidogrel 75 MG Tab PO SCH (09:06)
[2018-10-01] MEDS: Benzonatate 100 MG Cap PO SCH ×3 (09:06→20:32)
[2018-10-01] MEDS: predniSONE 20 MG Tab PO SCH ×2 (09:06→20:32)
[2018-10-01] MEDS: Saccharomyces Boulardii (Probiotic) 250 MG Cap PO SCH ×2 (09:06→20:32)
[2018-10-01] MEDS: Gabapentin 300 MG Cap PO SCH ×2 (09:06→20:32)
[2018-10-01] MEDS: Mupirocin Oint 22 GM Tube TOP SCH ×2 (09:06→21:28)
[2018-10-01] MEDS: Gabapentin 100 MG Cap PO SCH ×2 (09:06→20:32)
--- NOTE | 2018-10-01 10:16 | PCM.SN ---
- Free Text/Narrative Note: Patient briefly seen at bedside. He rested fairly well last night. He feels a little better. Vit D is low and his BS started to run up in the 200s. He still coughs up blood tinged-sputum and sometimes with yellowish color. Informed patient to continue with IS/FV and we will give him decongestant/expectorant if he is not already on. He will get Vitamin D supplement + Ca since his levels were low. We will also adjust his insulin regimen as he is now eating and he is getting oral steroids. He was told, provided stable and better, he will be discharged once his GOLD test is negative.
[2018-10-01] MEDS: Carboxymethylcellulose Sodium 1% Ophth Gel 15 ML Bottle EYEBOTH SCH ×2 (16:20→21:28)
[2018-10-01] MEDS ORDERED: cefTRIAXone 2 GM in Sodium Chloride 0.9% 100 ML IV SCH (17:00)
[2018-10-01] MEDS: Tamsulosin 0.4 MG Cap.ER PO SCH (20:32)
[2018-10-01] MEDS: Calcium Carbonate 500 MG Tab.Chew PO SCH (20:32)
[2018-10-01] MEDS: Montelukast 10 MG Tab PO SCH (20:32)
[2018-10-01] MEDS: guaiFENesin 600 MG Tab.ER PO SCH (20:32)
[2018-10-01] MEDS: lamoTRIgine 100 MG Tab PO SCH (20:32)
[2018-10-01] MEDS: Cholecalciferol (Vitamin D3) 5,000 UNIT Tab PO SCH (20:32)
[2018-10-01] MEDS ORDERED: Carboxymethylcellulose Sodium 1% Ophth Gel 15 ML Bottle EYEBOTH SCH (21:00)
[2018-10-01] MEDS: Azithromycin 500 MG in Sodium Chloride 0.9% 250 ML IV SCH (21:02)
--- NOTE | 2018-10-01 22:08 | PCM.PN ---
- General Info Date of Service: 10/01/18 Admission Dx/Problem (Free Text): Admission Diagnosis/Problem Admission Diagnosis/Problem Pneumonia Subjective Update: In to see Steve. He is sitting up in a chair watching TV. Currently he states he is feeling much better today, but "still not 100%". He is able to answer my questions and seems to be A+Ox3 today. Cognitive eval is still pending. Vestibular exam was negative. ECHO pending. BP better today now that he is taking all of his HTN medications. Vitamin D and Ca supplement since his levels were low. Still awaiting results of Quantiferon. If negative, and clinically looking well, will likely be ready for D/C then. No concerns from nursing. Functional Status: Reports: Pain Controlled, Tolerating Diet, Ambulating, Urinating - Review of Systems General: Reports: No Symptoms. Denies: Fever, Malaise, Chills HEENT: Reports: No Symptoms Pulmonary: Reports: Cough, Sputum. Denies: Pleuritic Chest Pain, Wheezing Cardiovascular: Reports: Edema (chronic). Denies: Chest Pain, Orthopnea Gastrointestinal: Reports: No Symptoms. Denies: Abdominal Pain, Diarrhea, Nausea, Vomiting Genitourinary: Reports: No Symptoms Musculoskeletal: Reports: No Symptoms Skin: Reports: No Symptoms Neurological: Reports: Dizziness (chronic issue). Denies: Confusion Psychiatric: Reports: No Symptoms. Denies: Confusion - Patient Data Vitals - Most Recent: Last Vital Signs Temp 97.5 F 10/01/18 15:43 Pulse 62 10/01/18 15:44 Resp 15 10/01/18 15:43 BP 117/55 L 10/01/18 15:44 Pulse Ox 94 L 10/01/18 21:14 Weight - Most Recent: 256 lb I&O - Last 24 Hours: Intake & Output 10/01/18 10/01/18 10/01/18 06:59 14:59 22:59 Intake Total 900 600 800 Output Total 1350 2600 Balance -450 600 -1800 Lab Results Last 24 Hours: Laboratory Results - last 24 hr 09/30/18 10/01/18 10/01/18 Range/Units 22:51 01:11 05:59 WBC (4.23-9.07) K/mm3 RBC (4.63-6.08) M/mm3 Hgb (13.7-17.5) gm/L Hct (40.1-51.0) % MCV (79.0-92.2) fl MCH (25.7-32.2) pg MCHC (32.2-35.5) g/dl RDW Std Deviation (35.1-43.9) fL Plt Count (163-337) K/mm3 MPV (9.4-12.3) fl Neut % (Auto) (34.0-67.9) % Lymph % (Auto) (21.8-53.1) % Ada % (Auto) (5.3-12.2) % Eos % (Auto) (0.8-7.0) Baso % (Auto) (0.1-1.2) % Neut # (Auto) (1.78-5.38) K/mm3 Lymph # (Auto) (1.32-3.57) K/mm3 Ada # (Auto) (0.30-0.82) K/mm3 Eos # (Auto) (0.04-0.54) K/mm3 Baso # (Auto) (0.01-0.08) K/mm3 Manual Slide Review Sodium (136-145) mEq/L Potassium (3.5-5.1) mEq/L Chloride (98-107) mEq/L Carbon Dioxide (21-32) mEq/L Anion Gap (5-15) BUN (7-18) mg/dL Creatinine (0.7-1.3) mg/dL Est Cr Clr Drug Dosing mL/min Estimated GFR (MDRD) (>60) mL/min BUN/Creatinine Ratio (14-18) Glucose (83-115) mg/dL POC Glucose 125 H 240 H (83-110) mg/dL Hemoglobin A1c (4.50-6.20) % Calcium (8.5-10.1) mg/dL Magnesium (1.8-2.4) mg/dl Iron (65-175) ug/dL C-Reactive Protein (<1.0) mg/dL NT-Pro-B Natriuret Pep (0-450) pg/mL Triglycerides (<150) mg/dL Cholesterol (<200) mg/dL LDL Cholesterol Direct (<100) mg/dL HDL Cholesterol (40-59) mg/dL Vitamin D 25-Hydroxy (30.0-100.0) ng/ml Adenovirus (PCR) Not detected (Not Detected) B. pertussis DNA (PCR) Not detected (Not Detected) B.parapertussis DNA PCR Not detected (Not Detected) C. pneumoniae DNA (PCR) Not detected (Not Detected) Coronavirus (PCR) Not detected (Not Detected) Human Metapneumovir PCR Not detected (Not Detected) Influenza A (RT-PCR) Not detected (Not Detected) Influenza B (RT-PCR) Not detected (Not Detected) M. pneumoniae (PCR) Not detected (Not Detected) Parainfluen 1,2,3,4 PCR Not detected (Not Detected) RSV (PCR) Not detected (Not Detected) Entero/Rhino (PCR) Not detected (Not Detected) 10/01/18 10/01/18 10/01/18 Range/Units 06:00 06:00 06:00 WBC 11.96 H (4.23-9.07) K/mm3 RBC 4.14 L (4.63-6.08) M/mm3 Hgb 11.8 L (13.7-17.5) gm/L Hct 38.3 L (40.1-51.0) % MCV 92.5 H (79.0-92.2) fl MCH 28.5 (25.7-32.2) pg MCHC 30.8 L (32.2-35.5) g/dl RDW Std Deviation 46.7 H (35.1-43.9) fL Plt Count 128 L (163-337) K/mm3 MPV 10.4 (9.4-12.3) fl Neut % (Auto) 91.6 H (34.0-67.9) % Lymph % (Auto) 4.3 L (21.8-53.1) % Ada % (Auto) 3.1 L (5.3-12.2) % Eos % (Auto) 0 L (0.8-7.0) Baso % (Auto) 0.1 (0.1-1.2) % Neut # (Auto) 10.95 H (1.78-5.38) K/mm3 Lymph # (Auto) 0.52 L (1.32-3.57) K/mm3 Ada # (Auto) 0.37 (0.30-0.82) K/mm3 Eos # (Auto) 0.00 L (0.04-0.54) K/mm3 Baso # (Auto) 0.01 (0.01-0.08) K/mm3 Manual Slide Review Abnormal smear Sodium 139 (136-145) mEq/L Potassium 5.0 (3.5-5.1) mEq/L Chloride 102 (98-107) mEq/L Carbon Dioxide 30 (21-32) mEq/L Anion Gap 12.0 (5-15) BUN 16 (7-18) mg/dL Creatinine 1.4 H (0.7-1.3) mg/dL Est Cr Clr Drug Dosing 51.97 mL/min Estimated GFR (MDRD) 49 (>60) mL/min BUN/Creatinine Ratio 11.4 L (14-18) Glucose 246 H (83-115) mg/dL POC Glucose (83-110) mg/dL Hemoglobin A1c 7.80 H (4.50-6.20) % Calcium 8.6 (8.5-10.1) mg/dL Magnesium 2.2 (1.8-2.4) mg/dl Iron (65-175) ug/dL C-Reactive Protein 14.7 H* (<1.0) mg/dL NT-Pro-B Natriuret Pep (0-450) pg/mL Triglycerides 147 (<150) mg/dL Cholesterol 103 (<200) mg/dL LDL Cholesterol Direct 52 (<100) mg/dL HDL Cholesterol 32.0 L (40-59) mg/dL Vitamin D 25-Hydroxy 22.1 L (30.0-100.0) ng/ml Adenovirus (PCR) (Not Detected) B. pertussis DNA (PCR) (Not Detected) B.parapertussis DNA PCR (Not Detected) C. pneumoniae DNA (PCR) (Not Detected) Coronavirus (PCR) (Not Detected) Human Metapneumovir PCR (Not Detected) Influenza A (RT-PCR) (Not Detected) Influenza B (RT-PCR) (Not Detected) M. pneumoniae (PCR) (Not Detected) Parainfluen 1,2,3,4 PCR (Not Detected) RSV (PCR) (Not Detected) Entero/Rhino (PCR) (Not Detected) 10/01/18 10/01/18 10/01/18 Range/Units 06:00 06:00 10:54 WBC (4.23-9.07) K/mm3 RBC (4.63-6.08) M/mm3 Hgb (13.7-17.5) gm/L Hct (40.1-51.0) % MCV (79.0-92.2) fl MCH (25.7-32.2) pg MCHC (32.2-35.5) g/dl RDW Std Deviation (35.1-43.9) fL Plt Count (163-337) K/mm3 MPV (9.4-12.3) fl Neut % (Auto) (34.0-67.9) % Lymph % (Auto) (21.8-53.1) % Ada % (Auto) (5.3-12.2) % Eos % (Auto) (0.8-7.0) Baso % (Auto) (0.1-1.2) % Neut # (Auto) (1.78-5.38) K/mm3 Lymph # (Auto) (1.32-3.57) K/mm3 Ada # (Auto) (0.30-0.82) K/mm3 Eos # (Auto) (0.04-0.54) K/mm3 Baso # (Auto) (0.01-0.08) K/mm3 Manual Slide Review Sodium (136-145) mEq/L Potassium (3.5-5.1) mEq/L Chloride (98-107) mEq/L Carbon Dioxide (21-32) mEq/L Anion Gap (5-15) BUN (7-18) mg/dL Creatinine (0.7-1.3) mg/dL Est Cr Clr Drug Dosing mL/min Estimated GFR (MDRD) (>60) mL/min BUN/Creatinine Ratio (14-18) Glucose (83-115) mg/dL POC Glucose 291 H (83-110) mg/dL Hemoglobin A1c (4.50-6.20) % Calcium (8.5-10.1) mg/dL Magnesium (1.8-2.4) mg/dl Iron 48 L (65-175) ug/dL C-Reactive Protein (<1.0) mg/dL NT-Pro-B Natriuret Pep 1720 H (0-450) pg/mL Triglycerides (<150) mg/dL Cholesterol (<200) mg/dL LDL Cholesterol Direct (<100) mg/dL HDL Cholesterol (40-59) mg/dL Vitamin D 25-Hydroxy (30.0-100.0) ng/ml Adenovirus (PCR) (Not Detected) B. pertussis DNA (PCR) (Not Detected) B.parapertussis DNA PCR (Not Detected) C. pneumoniae DNA (PCR) (Not Detected) Coronavirus (PCR) (Not Detected) Human Metapneumovir PCR (Not Detected) Influenza A (RT-PCR) (Not Detected) Influenza B (RT-PCR) (Not Detected) M. pneumoniae (PCR) (Not Detected) Parainfluen 1,2,3,4 PCR (Not Detected) RSV (PCR) (Not Detected) Entero/Rhino (PCR) (Not Detected) 10/01/18 Range/Units 16:42 WBC (4.23-9.07) K/mm3 RBC (4.63-6.08) M/mm3 Hgb (13.7-17.5) gm/L Hct (40.1-51.0) % MCV (79.0-92.2) fl MCH (25.7-32.2) pg MCHC (32.2-35.5) g/dl RDW Std Deviation (35.1-43.9) fL Plt Count (163-337) K/mm3 MPV (9.4-12.3) fl Neut % (Auto) (34.0-67.9) % Lymph % (Auto) (21.8-53.1) % Ada % (Auto) (5.3-12.2) % Eos % (Auto) (0.8-7.0) Baso % (Auto) (0.1-1.2) % Neut # (Auto) (1.78-5.38) K/mm3 Lymph # (Auto) (1.32-3.57) K/mm3 Ada # (Auto) (0.30-0.82) K/mm3 Eos # (Auto) (0.04-0.54) K/mm3 Baso # (Auto) (0.01-0.08) K/mm3 Manual Slide Review Sodium (136-145) mEq/L Potassium (3.5-5.1) mEq/L Chloride (98-107) mEq/L Carbon Dioxide (21-32) mEq/L Anion Gap (5-15) BUN (7-18) mg/dL Creatinine (0.7-1.3) mg/dL Est Cr Clr Drug Dosing mL/min Estimated GFR (MDRD) (>60) mL/min BUN/Creatinine Ratio (14-18) Glucose (83-115) mg/dL POC Glucose 319 H (83-110) mg/dL Hemoglobin A1c (4.50-6.20) % Calcium (8.5-10.1) mg/dL Magnesium (1.8-2.4) mg/dl Iron (65-175) ug/dL C-Reactive Protein (<1.0) mg/dL NT-Pro-B Natriuret Pep (0-450) pg/mL Triglycerides (<150) mg/dL Cholesterol (<200) mg/dL LDL Cholesterol Direct (<100) mg/dL HDL Cholesterol (40-59) mg/dL Vitamin D 25-Hydroxy (30.0-100.0) ng/ml Adenovirus (PCR) (Not Detected) B. pertussis DNA (PCR) (Not Detected) B.parapertussis DNA PCR (Not Detected) C. pneumoniae DNA (PCR) (Not Detected) Coronavirus (PCR) (Not Detected) Human Metapneumovir PCR (Not Detected) Influenza A (RT-PCR) (Not Detected) Influenza B (RT-PCR) (Not Detected) M. pneumoniae (PCR) (Not Detected) Parainfluen 1,2,3,4 PCR (Not Detected) RSV (PCR) (Not Detected) Entero/Rhino (PCR) (Not Detected) Michael Results Last 24 Hours: Microbiology 09/30/18 16:15 Gram Stain - Final Sputum - Expectorated Sputum Culture - Preliminary Med Orders - Current: Current Medications Acetaminophen (Tylenol) 975 mg PO BID PRN PRN Reason: Pain (mild 1-3) Hydrocodone Bitart/Acetaminophen ([place] 325-5 Mg) 1 tab PO Q4H PRN PRN Reason: Pain (moderate 4-6) Albuterol (Proventil Neb Soln) 2.5 mg NEB Q2H PRN PRN Reason: Shortness Of Breath/wheezing Albuterol/Ipratropium (Duoneb 3.0-0.5 Mg/3 Ml) 3 ml NEB Q4H PRN PRN Reason: Shortness Of Breath/wheezing Alprazolam (Xanax) 0.25 mg PO BID PRN PRN Reason: Anxiety Apixaban (Eliquis) 5 mg PO BID [facility] Last Admin: 10/01/18 09:05 Dose: 5 mg Artificial Tears (Refresh Liquigel 1%) 0 ml EYEBOTH QID [facility] Last Admin: 10/01/18 21:28 Dose: Not Given Benzonatate (Tessalon Perles) 100 mg PO TID [facility] Last Admin: 10/01/18 19:54 Dose: Not Given Bisacodyl (Dulcolax) 5 mg PO DAILY PRN PRN Reason: Constipation Budesonide (Pulmicort) 0.25 mg INH BIDRT [facility] Last Admin: 10/01/18 21:12 Dose: 0.25 mg Calcium Carbonate/Glycine (Tums) 1,000 mg PO BEDTIME [facility] Captopril (Capoten) 50 mg PO BIDAC [facility] Last Admin: 10/01/18 06:07 Dose: 50 mg Cholecalciferol (Vitamin D3) 5,000 unit PO BEDTIME [facility] Clopidogrel Bisulfate (Plavix) 75 mg PO DAILY [facility] Last Admin: 10/01/18 09:06 Dose: 75 mg Dextrose/Water (Dextrose 50% In Water) 50 ml IVPUSH ASDIRECTED PRN PRN Reason: Hypoglycemia Docusate Sodium (Colace) 100 mg PO BID PRN PRN Reason: Constipation Flunisolide (Nasalide Nasal Carlotta) 0 ml GISEL BID [facility] Last Admin: 10/01/18 09:03 Dose: 2 spray Furosemide (Lasix) 40 mg PO DAILY [facility] Last Admin: 10/01/18 09:03 Dose: 40 mg Gabapentin (Neurontin) 100 mg PO BID [facility] Last Admin: 10/01/18 09:06 Dose: 100 mg Gabapentin (Neurontin) 300 mg PO BID [facility] Last Admin: 10/01/18 09:06 Dose: 300 mg Glycopyrrolate (Seebri Neohaler) 0 mcg IH BID [facility] Guaifenesin (Mucinex) 1,200 mg PO BID [facility] Hydralazine HCl (Apresoline) 10 mg IVPUSH Q4H PRN PRN Reason: Hypertension Hydromorphone HCl (Dilaudid) 0.25 mg IVPUSH Q2H PRN PRN Reason: Pain (severe 7-10) Azithromycin 500 mg/ Sodium (Chloride) 250 mls @ 250 mls/hr IV Q24H [facility] Last Admin: 10/01/18 21:02 Dose: 250 mls/hr Promethazine HCl 6.25 mg/ (Sodium Chloride) 50.25 mls @ 100 mls/hr IV Q6H PRN PRN Reason: Nausea/Vomiting Ceftriaxone Sodium 2 gm/ (Sodium Chloride) 100 mls @ 200 mls/hr IV Q24H [facility] Insulin Glargine (Lantus) 45 unit SUBCUT BIDAC [facility] Insulin Human Lispro (Humalog) 0 unit SUBCUT QIDACANDBED [facility]; Protocol Last Admin: 10/01/18 11:48 Dose: 9 units Isosorbide Mononitrate (Imdur) 120 mg PO DAILY [facility] Last Admin: 10/01/18 09:06 Dose: 120 mg Lamotrigine (Lamotrigine) 50 mg PO BEDTIME [facility] Last Admin: 09/30/18 22:34 Dose: 50 mg Levothyroxine Sodium (Synthroid) 50 mcg PO ACBREAKFAST [facility] Last Admin: 10/01/18 06:11 Dose: 50 mcg Lorazepam (Ativan) 2 mg IVPUSH Q4H PRN PRN Reason: Seizures Magnesium Hydroxide (Milk Of Magnesia) 30 ml PO Q12H PRN PRN Reason: Constipation Metoprolol Tartrate (Lopressor) 5 mg IVPUSH Q4H PRN PRN Reason: Tachycardia Metoprolol Tartrate (Lopressor) 50 mg PO BID [facility] Last Admin: 10/01/18 09:05 Dose: 50 mg Montelukast Sodium (Singulair) 10 mg PO BEDTIME [facility] Last Admin: 09/30/18 22:33 Dose: 10 mg Mupirocin (Bactroban Oint) 0 gm TOP BID [facility] Last Admin: 10/01/18 21:28 Dose: Not Given Naphazoline HCl/Zinc Sulfate (Clear Eyes Itchy Eye Rlf Drops) 0 ml EYEBOTH DAILY [facility] Nitroglycerin (Nitrostat) 0.4 mg SL ASDIRECTED PRN PRN Reason: Chest Pain Pantoprazole Sodium (Protonix) 40 mg PO DAILY@0700 [facility] Last Admin: 10/01/18 06:11 Dose: 40 mg Arformoterol 15 Mcg ((Brovana)) 0 each NEB BID [facility] Phenol/Menthol (Chloraseptic Throat Carlotta) 0 ml MUCMEM Q2H PRN PRN Reason: SORE THROAT Polyethylene Glycol (Miralax) 17 gm PO DAILY PRN PRN Reason: Constipation Prednisone (Prednisone) 20 mg PO BID [facility] Last Admin: 10/01/18 09:06 Dose: 20 mg Promethazine HCl/Codeine (Phenergan With Codeine) 5 ml PO Q8H PRN PRN Reason: COUGH Ranolazine (Ranexa) 500 mg PO BID [facility] Last Admin: 10/01/18 09:04 Dose: 500 mg Rosuvastatin Calcium (Crestor) 20 mg PO DAILY [facility] Last Admin: 10/01/18 09:04 Dose: 20 mg Saccharomyces Boulardii (Florastor) 250 mg PO BID [facility] Last Admin: 10/01/18 09:06 Dose: 250 mg Senna/Docusate Sodium (Senna Plus) 1 tab PO BID PRN PRN Reason: Constipation Sodium Chloride (Saline Flush) 10 ml FLUSH ASDIRECTED PRN PRN Reason: Keep Vein Open Last Admin: 09/30/18 16:37 Dose: 10 ml Tamsulosin HCl (Flomax) 0.8 mg PO BEDTIME [facility] Last Admin: 09/30/18 22:40 Dose: 0.8 mg Triamcinolone Acetonide (Triamcinolone Acetonide 0.1% Crm) 0 gm TOP DAILY PRN PRN Reason: Rash Discontinued Medications Acetaminophen (Tylenol) 650 mg PO NOW ONE Stop: 09/30/18 14:30 Last Admin: 09/30/18 14:58 Dose: 650 mg Acetaminophen (Tylenol) 650 mg PO Q4H PRN PRN Reason: Pain (Mild 1-3)/fever Albuterol/Ipratropium (Duoneb 3.0-0.5 Mg/3 Ml) 3 ml NEB ONETIME ONE Stop: 09/30/18 16:09 Last Admin: 09/30/18 16:19 Dose: 3 ml Apixaban (Eliquis) 5 mg PO BIDRT [facility] Artificial Tears (Refresh Liquigel 1%) 0 ml EYEBOTH BEDTIME [facility] Ceftriaxone Sodium (Rocephin) 2 gm IVPUSH Q24H [facility] Last Admin: 09/30/18 20:49 Dose: Not Given Famotidine (Pepcid) 20 mg PO BID [facility] Gabapentin (Neurontin) 100 mg PO BID [facility] Last Admin: 10/01/18 02:00 Dose: Not Given Gabapentin (Neurontin) 300 mg PO BID [facility] Last Admin: 10/01/18 02:00 Dose: Not Given Hydralazine HCl (Apresoline) 10 mg PO ONETIME ONE Stop: 09/30/18 15:35 Last Admin: 09/30/18 15:58 Dose: 10 mg Ceftriaxone Sodium 1 gm/ (Sodium Chloride) 100 mls @ 200 mls/hr IV ONETIME ONE Stop: 09/30/18 16:38 Last Admin: 09/30/18 16:35 Dose: 200 mls/hr Ceftriaxone Sodium 1 gm/ (Sodium Chloride) 100 mls @ 200 mls/hr IV ONETIME ONE Stop: 09/30/18 19:59 Last Admin: 09/30/18 22:23 Dose: 200 mls/hr Non-Formulary Medication (Dextran/Hypromellose/Glycerin [Genteal Tears 0.1%-0.2% -0.3%]) 1 drop EYEBOTH BEDTIME [facility] Last Admin: 10/01/18 01:29 Dose: Not Given Arformoterol 15 Mcg ((Brovana)) 0 each NEB BID [facility] Last Admin: 10/01/18 07:12 Dose: Not Given - Exam Quality Assessment: Supplemental Oxygen (3L NC), DVT Prophylaxis General: Alert, Oriented, Cooperative, No Acute Distress HEENT: Pupils Equal, Pupils Reactive, EOMI, Mucous Membr. Moist/[place] Neck: Supple Lungs: Normal Respiratory Effort, Decreased Breath Sounds Cardiovascular: Regular Rate, Regular Rhythm GI/Abdominal Exam: Normal Bowel Sounds, Soft, Non-Tender, No Organomegaly, No Distention, No Abnormal Bruit, No Mass, Pelvis Stable (Male) Exam: Deferred Back Exam: Normal Inspection Extremities: Normal Range of Motion, Non-Tender, Normal Capillary Refill, Pedal Edema (1+ pitting bilterally) Peripheral Pulses: 2+: Posterior Tibial (L), Posterior Tibial (R), Dorsalis Pedis (L), Dorsalis Pedis (R) Skin: Warm, Dry, Intact Neurological: No New Focal Deficit Psy/Mental Status: Alert, Normal Affect, Normal Mood - Problem List & Annotations (1) HTN (hypertension) SNOMED Code(s): 65170759 Code(s): I10 - ESSENTIAL (PRIMARY) HYPERTENSION Status: Chronic Priority : Medium Current Visit: Yes Qualifiers: Hypertension type: unspecified Qualified Code(s): I10 - Essential (primary ) hypertension (2) Pneumonia SNOMED Code(s): 754060385 Code(s): J18.9 - PNEUMONIA, UNSPECIFIED ORGANISM Status: Acute Priority: High Current Visit: Yes Qualifiers: Pneumonia type: due to unspecified organism Laterality: right Lung location: lower lobe of lung Qualified Code(s): J18.1 - Lobar pneumonia, unspecified organism (3) Dizziness of unknown cause SNOMED Code(s): 380763345 Code(s): R42 - DIZZINESS AND GIDDINESS Status: Resolved Priority: High Current Visit: Yes (4) Hemoptysis SNOMED Code(s): 46740014 Code(s): R04.2 - HEMOPTYSIS Status: Acute Priority: High Current Visit : Yes - Problem List Review Problem List Initiated/Reviewed/Updated: Yes - My Orders Last 24 Hours: My Active Orders 09/30/18 22:00 Insulin Lispro [HumaLOG] See Protocol SUBCUT QIDACANDBED 10/01/18 00:41 Acetaminophen [Tylenol] 975 mg PO BID PRN 10/01/18 06:00 Captopril [Capoten] 50 mg PO BIDAC Levothyroxine [Synthroid] 50 mcg PO ACBREAKFAST 10/01/18 07:00 Pantoprazole [ProTONIX] 40 mg PO DAILY@0700 10/01/18 09:00 Clopidogrel [Plavix] 75 mg PO DAILY Flunisolide [Nasalide Nasal Carlotta] 0 ml GISEL BID Furosemide [Lasix] 40 mg PO DAILY Gabapentin [Neurontin] 100 mg PO BID Gabapentin [Neurontin] 300 mg PO BID Glycopyrrolate [Seebri Neohaler] 0 mcg IH BID Isosorbide Mononitrate [Imdur] 120 mg PO DAILY Patient's Own Medication [Ptom] 0 each NEB BID Rosuvastatin [Crestor] 20 mg PO DAILY 10/01/18 17:00 cefTRIAXone [Rocephin] 2 gm Sodium Chloride 0.9% [Normal Saline] 100 ml IV Q24H 10/02/18 05:11 BASIC METABOLIC PANEL,BMP [CHEM] AM C-REACTIVE PROTEIN [CHEM] AM CBC WITH AUTO DIFF [HEME] AM MAGNESIUM [CHEM] AM PRO B-TYPE NATRIUR PEPT,BNPPRO [CHEM] AM 10/02/18 09:00 CXR [Chest 2V] [CR] Routine 10/03/18 05:11 BASIC METABOLIC PANEL,BMP [CHEM] AM C-REACTIVE PROTEIN [CHEM] AM CBC WITH AUTO DIFF [HEME] AM MAGNESIUM [CHEM] AM PRO B-TYPE NATRIUR PEPT,BNPPRO [CHEM] AM 10/04/18 05:11 BASIC METABOLIC PANEL,BMP [CHEM] AM C-REACTIVE PROTEIN [CHEM] AM CBC WITH AUTO DIFF [HEME] AM MAGNESIUM [CHEM] AM PRO B-TYPE NATRIUR PEPT,BNPPRO [CHEM] AM 10/05/18 05:11 BASIC METABOLIC PANEL,BMP [CHEM] AM C-REACTIVE PROTEIN [CHEM] AM CBC WITH AUTO DIFF [HEME] AM MAGNESIUM [CHEM] AM PRO B-TYPE NATRIUR PEPT,BNPPRO [CHEM] AM - Plan Plan:: Assessment/Plan: Acute: PNA right lung base * Fever, body aches, productive cough w/ greenish sputum x 1.5-2 weeks * Afebrile, WBC 13.45--> 11.96, CRP 6.6--> 14.7 * 94% on 3L (chronic per pt) * CXR: * 1. Findings suspicious for mild area of pneumonia with the right lung base. * 2. Slight scarring within the left lung base. * Strep pneumo pending * RVP, Mycoplasma negative * Sputum culture--> moderate gram positive cocci; pending culture * Influenza negative * RT/Duonebs/IS/Acapella * Repeat CXR in 2 days * Rocephin started in ED--> Continue and add Azithromycin Hemoptysis * R/O TB * Risk Factors: DM2, COPD, previous smoker (quit 2013), irritation from coughing for weeks, has had 1 sick contact * Denies any recent travel, lives alone * Vit D low 22.1, Fe low at 48--> supplement * Quantiferon TB pending * Airborne precautions CHF * Acute on Chronic * BNP 701--> 1720, 1+ pitting edema bilaterally * ECHO pending; no recent studies to compare to * Continue at-home Lasix * Lasix IV push PRN Dizziness * Acute on chronic * Vestibular Consult--> exam negative * MRI Brain 04/02/16--> nothing acute seen Mild Confusion, Improving * Risk factor: PNA/current illness * Thought he was in [place], has difficulty answering questions--> knows where he is today * No slurred speech or neurological deficits on exam * Cog Evaluation pending Resolved: HTN * Acute on Chronic * Likely 2/2 not taking all of his HTN medications today * Monitor * PRN Hydralazine Chronic: HLD * Lipid panel WNL except low HDL at 32 CAD s/p Coronary Artery Stent LA COPD DM2 * A1C 7.8 * Blood Glucose Checks, Insulin sliding scale CKD III GERD OA h/o Hypomagnesemia Migraines BPH Hypothyroid Obesity Plan: Admit to Medical Floor Droplet/Respiratory precautions Routine AM Labs ADA/Heart Healthy diet DVT/GI prophylaxis--> on Protonix and Eliquis CM/SW PT/OT--> recommend PT for additional strengthening, balance, and conditioning exercises Code Status: Full Code; PCP: Dr. Saleem Guillermo
[2018-10-01] MEDS: Insulin Glarg,Human.Rec.Analog 100 UNIT/ML ML SUBCUT SCH (22:38)
[2018-10-01] MEDS: ARFORMOTEROL 15 MCG NEB SCH ×2 (23:23→23:34)
[2018-10-01] MEDS: Glycopyrrolate 15.6 MCG Cap.W.Dev Kit of 6 IH SCH ×2 (23:24→23:35)
[2018-10-02] MEDS: Levothyroxine 50 MCG Tab PO SCH (06:37)
[2018-10-02] MEDS: Pantoprazole 40 MG Tab.CR PO SCH (06:37)
[2018-10-02] MEDS: Insulin Glarg,Human.Rec.Analog 100 UNIT/ML ML SUBCUT SCH ×2 (06:38→17:27)
[2018-10-02] MEDS: Budesonide 0.25 MG/2 ML Neb Susp INH SCH ×2 (06:53→20:56)
[2018-10-02] MEDS ORDERED: Ferrous Sulfate 325 MG Tab PO SCH (07:00)
[2018-10-02] MEDS: Isosorbide Mononitrate 60 MG Tab.ER PO SCH (08:54)
[2018-10-02] MEDS: Rosuvastatin 10 MG Tab PO SCH (08:54)
[2018-10-02] MEDS: Saccharomyces Boulardii (Probiotic) 250 MG Cap PO SCH ×2 (08:55→20:35)
[2018-10-02] MEDS: Ferrous Sulfate 160 MG TAB.ER PO SCH (08:55)
[2018-10-02] MEDS: Gabapentin 100 MG Cap PO SCH ×2 (08:55→20:36)
[2018-10-02] MEDS: Gabapentin 300 MG Cap PO SCH ×2 (08:55→20:37)
[2018-10-02] MEDS: Apixaban 5 MG Tab PO SCH ×2 (08:55→20:36)
[2018-10-02] MEDS: Benzonatate 100 MG Cap PO SCH ×3 (08:56→20:36)
[2018-10-02] MEDS: guaiFENesin 600 MG Tab.ER PO SCH ×2 (08:56→20:37)
[2018-10-02] MEDS: predniSONE 20 MG Tab PO SCH (08:57)
[2018-10-02] MEDS: Furosemide 40 MG Tab PO SCH (08:57)
[2018-10-02] MEDS: Clopidogrel 75 MG Tab PO SCH (08:57)
[2018-10-02] MEDS: Metoprolol Tartrate 50 MG Tab PO SCH ×2 (08:57→20:36)
[2018-10-02] MEDS: Naphazoline 0.12%/Zinc Sulfate/Glycerin Ophth Soln 15 ML Bottle EYEBOTH SCH (08:58)
[2018-10-02] MEDS: Insulin Lispro 100 UNIT/ML 10 ML VIAL SUBCUT SCH ×4 (08:58→21:07)
[2018-10-02] MEDS: Carboxymethylcellulose Sodium 1% Ophth Gel 15 ML Bottle EYEBOTH SCH ×4 (08:59→20:34)
[2018-10-02] MEDS: Mupirocin Oint 22 GM Tube TOP SCH ×2 (09:06→20:34)
--- NOTE | 2018-10-02 09:07 | CR ---
Chest: Portable view of the chest was obtained. Comparison: Prior chest x-ray of 09/30/18 and 09/20/18. Parenchymal density noted within the left lung base which appears stable most likely due to scarring. Lung markings are slightly increased within the right lung base believed to be slightly improved. Lungs otherwise are clear. Heart size is normal. Tortuous thoracic aorta is seen. Bony structures are grossly intact. Impression: 1. Increased density within the right lung base felt to be slightly improved from previous exam. 2. Stable scarring believed to be present within the left base. 3. Other incidental findings. Diagnostic code #3
[2018-10-02] MEDS: ARFORMOTEROL 15 MCG NEB SCH (09:56)
[2018-10-02] MEDS: hydrALAZINE 20 MG/ML SDV IVPUSH PRN (10:55)
--- NOTE | 2018-10-02 11:15 | PCM.SN ---
- Free Text/Narrative Note: Briefly seen patient at bedside. He is doing fairly well and slept pretty good overnight. He is coughing up less w/o blood but with greenish sputum. He has no complaints this morning. He is afebrile with improved leukocytosis. His glucose levels have been uncontrolled at the same time per dietary he has been ordering too much meal or food. His 2D echo report is pending. Informed patient we will go up on his Lantus to 48 units SC BID and cut down on oral steroid to 10 mg po BID. He is to continue to use IS/FV. Dredge Pipeman to help re-structure his diet and dietary education to prevent weight gain and improve sugar level. TB studies are still pending. His pressures are not controlled. We will add Norvasc 10 mg po at bed time and low dose HCTZ at 12.5 mg po BID first dose now.
[2018-10-02] MEDS: Hydrochlorothiazide 12.5 MG Cap PO SCH (14:06)
--- NOTE | 2018-10-02 15:10 | PCM.PN ---
- General Info Date of Service: 10/02/18 Admission Dx/Problem (Free Text): Admission Diagnosis/Problem Admission Diagnosis/Problem Pneumonia Subjective Update: In to see Steve. He is sitting in a chair eating. He has no current complaints and continues to feel better. States that his sputum is greenish w/ only slight amount of blood. His labs are trending down. Switched to PO antibiotics today. Sputum culture shows few gram negative rods. Cog eval negative for deficit. ECHO looks good. AFB sputum smear 2/3 negative for TB. AFB sputum 2/3 culture pending. Quantiferon test still pending- continue TB precautions. Dietary consult as his sugars have been quite elevated and it seems he is eating/ ordering more food than is recommended. Lantus increased and Prednisone decreased to help with elevated sugars. BP has also been elevated, has been put on Norvasc QHS and HCTZ BID. No concerns from nursing. Functional Status: Reports: Pain Controlled, Tolerating Diet, Ambulating, Urinating - Review of Systems General: Reports: No Symptoms. Denies: Fever, Chills HEENT: Reports: No Symptoms Pulmonary: Reports: Cough, Sputum Cardiovascular: Reports: Dyspnea on Exertion, Edema (chronic). Denies: Chest Pain Gastrointestinal: Reports: No Symptoms. Denies: Abdominal Pain, Diarrhea, Nausea, Vomiting Genitourinary: Reports: No Symptoms Musculoskeletal: Reports: No Symptoms Skin: Reports: No Symptoms Neurological: Reports: No Symptoms Psychiatric: Reports: No Symptoms - Patient Data Vitals - Most Recent: Last Vital Signs Temp 98.2 F 10/02/18 11:59 Pulse 60 10/02/18 12:00 Resp 14 10/02/18 11:59 BP 143/65 H 10/02/18 12:00 Pulse Ox 96 10/02/18 12:00 Weight - Most Recent: 248 lb 5 oz I&O - Last 24 Hours: Intake & Output 10/02/18 10/02/18 10/02/18 06:59 14:59 22:59 Intake Total 1550 400 Output Total 1800 800 Balance -250 -400 Lab Results Last 24 Hours: Laboratory Results - last 24 hr 10/01/18 10/01/18 10/01/18 Range/Units 01:11 16:42 22:22 WBC (4.23-9.07) K/mm3 RBC (4.63-6.08) M/mm3 Hgb (13.7-17.5) gm/L Hct (40.1-51.0) % MCV (79.0-92.2) fl MCH (25.7-32.2) pg MCHC (32.2-35.5) g/dl RDW Std Deviation (35.1-43.9) fL Plt Count (163-337) K/mm3 MPV (9.4-12.3) fl Neut % (Auto) (34.0-67.9) % Lymph % (Auto) (21.8-53.1) % [place] % (Auto) (5.3-12.2) % Eos % (Auto) (0.8-7.0) Baso % (Auto) (0.1-1.2) % Neut # (Auto) (1.78-5.38) K/mm3 Lymph # (Auto) (1.32-3.57) K/mm3 [place] # (Auto) (0.30-0.82) K/mm3 Eos # (Auto) (0.04-0.54) K/mm3 Baso # (Auto) (0.01-0.08) K/mm3 Manual Slide Review Sodium (136-145) mEq/L Potassium (3.5-5.1) mEq/L Chloride (98-107) mEq/L Carbon Dioxide (21-32) mEq/L Anion Gap (5-15) BUN (7-18) mg/dL Creatinine (0.7-1.3) mg/dL Est Cr Clr Drug Dosing mL/min Estimated GFR (MDRD) (>60) mL/min BUN/Creatinine Ratio (14-18) Glucose 432 H (83-115) mg/dL POC Glucose 319 H (83-110) mg/dL Calcium (8.5-10.1) mg/dL Magnesium (1.8-2.4) mg/dl C-Reactive Protein (<1.0) mg/dL NT-Pro-B Natriuret Pep (0-450) pg/mL Adenovirus (PCR) Not detected (Not Detected) B. pertussis DNA (PCR) Not detected (Not Detected) B.parapertussis DNA PCR Not detected (Not Detected) C. pneumoniae DNA (PCR) Not detected (Not Detected) Coronavirus (PCR) Not detected (Not Detected) Human Metapneumovir PCR Not detected (Not Detected) Influenza A (RT-PCR) Not detected (Not Detected) Influenza B (RT-PCR) Not detected (Not Detected) M. pneumoniae (PCR) Not detected (Not Detected) Parainfluen 1,2,3,4 PCR Not detected (Not Detected) RSV (PCR) Not detected (Not Detected) Entero/Rhino (PCR) Not detected (Not Detected) 10/02/18 10/02/18 10/02/18 Range/Units 06:01 06:32 06:32 WBC 9.53 H (4.23-9.07) K/mm3 RBC 3.96 L (4.63-6.08) M/mm3 Hgb 11.4 L (13.7-17.5) gm/L Hct 35.8 L (40.1-51.0) % MCV 90.4 (79.0-92.2) fl MCH 28.8 (25.7-32.2) pg MCHC 31.8 L (32.2-35.5) g/dl RDW Std Deviation 45.1 H (35.1-43.9) fL Plt Count 136 L (163-337) K/mm3 MPV 11.2 (9.4-12.3) fl Neut % (Auto) 88.5 H (34.0-67.9) % Lymph % (Auto) 6.0 L (21.8-53.1) % [place] % (Auto) 3.9 L (5.3-12.2) % Eos % (Auto) 0 L (0.8-7.0) Baso % (Auto) 0.1 (0.1-1.2) % Neut # (Auto) 8.44 H (1.78-5.38) K/mm3 Lymph # (Auto) 0.57 L (1.32-3.57) K/mm3 [place] # (Auto) 0.37 (0.30-0.82) K/mm3 Eos # (Auto) 0.00 L (0.04-0.54) K/mm3 Baso # (Auto) 0.01 (0.01-0.08) K/mm3 Manual Slide Review Abnormal smear Sodium 135 L (136-145) mEq/L Potassium 5.0 (3.5-5.1) mEq/L Chloride 97 L (98-107) mEq/L Carbon Dioxide 32 (21-32) mEq/L Anion Gap 11.0 (5-15) BUN 28 H (7-18) mg/dL Creatinine 1.4 H (0.7-1.3) mg/dL Est Cr Clr Drug Dosing 51.97 mL/min Estimated GFR (MDRD) 49 (>60) mL/min BUN/Creatinine Ratio 20.0 H (14-18) Glucose 329 H (83-115) mg/dL POC Glucose 337 H (83-110) mg/dL Calcium 9.0 (8.5-10.1) mg/dL Magnesium 2.1 (1.8-2.4) mg/dl C-Reactive Protein 9.9 H* (<1.0) mg/dL NT-Pro-B Natriuret Pep (0-450) pg/mL Adenovirus (PCR) (Not Detected) B. pertussis DNA (PCR) (Not Detected) B.parapertussis DNA PCR (Not Detected) C. pneumoniae DNA (PCR) (Not Detected) Coronavirus (PCR) (Not Detected) Human Metapneumovir PCR (Not Detected) Influenza A (RT-PCR) (Not Detected) Influenza B (RT-PCR) (Not Detected) M. pneumoniae (PCR) (Not Detected) Parainfluen 1,2,3,4 PCR (Not Detected) RSV (PCR) (Not Detected) Entero/Rhino (PCR) (Not Detected) 10/02/18 10/02/18 Range/Units 06:32 10:53 WBC (4.23-9.07) K/mm3 RBC (4.63-6.08) M/mm3 Hgb (13.7-17.5) gm/L Hct (40.1-51.0) % MCV (79.0-92.2) fl MCH (25.7-32.2) pg MCHC (32.2-35.5) g/dl RDW Std Deviation (35.1-43.9) fL Plt Count (163-337) K/mm3 MPV (9.4-12.3) fl Neut % (Auto) (34.0-67.9) % Lymph % (Auto) (21.8-53.1) % [place] % (Auto) (5.3-12.2) % Eos % (Auto) (0.8-7.0) Baso % (Auto) (0.1-1.2) % Neut # (Auto) (1.78-5.38) K/mm3 Lymph # (Auto) (1.32-3.57) K/mm3 [place] # (Auto) (0.30-0.82) K/mm3 Eos # (Auto) (0.04-0.54) K/mm3 Baso # (Auto) (0.01-0.08) K/mm3 Manual Slide Review Sodium (136-145) mEq/L Potassium (3.5-5.1) mEq/L Chloride (98-107) mEq/L Carbon Dioxide (21-32) mEq/L Anion Gap (5-15) BUN (7-18) mg/dL Creatinine (0.7-1.3) mg/dL Est Cr Clr Drug Dosing mL/min Estimated GFR (MDRD) (>60) mL/min BUN/Creatinine Ratio (14-18) Glucose (83-115) mg/dL POC Glucose 372 H (83-110) mg/dL Calcium (8.5-10.1) mg/dL Magnesium (1.8-2.4) mg/dl C-Reactive Protein (<1.0) mg/dL NT-Pro-B Natriuret Pep 762 H (0-450) pg/mL Adenovirus (PCR) (Not Detected) B. pertussis DNA (PCR) (Not Detected) B.parapertussis DNA PCR (Not Detected) C. pneumoniae DNA (PCR) (Not Detected) Coronavirus (PCR) (Not Detected) Human Metapneumovir PCR (Not Detected) Influenza A (RT-PCR) (Not Detected) Influenza B (RT-PCR) (Not Detected) M. pneumoniae (PCR) (Not Detected) Parainfluen 1,2,3,4 PCR (Not Detected) RSV (PCR) (Not Detected) Entero/Rhino (PCR) (Not Detected) Michael Results Last 24 Hours: Microbiology 09/30/18 16:15 Gram Stain - Final Sputum - Expectorated Sputum Culture - Preliminary Gram Negative Rods Med Orders - Current: Current Medications Acetaminophen (Tylenol) 975 mg PO BID PRN PRN Reason: Pain (mild 1-3) Hydrocodone Bitart/Acetaminophen (Amelia 325-5 Mg) 1 tab PO Q4H PRN PRN Reason: Pain (moderate 4-6) Albuterol (Proventil Neb Soln) 2.5 mg NEB Q2H PRN PRN Reason: Shortness Of Breath/wheezing Albuterol/Ipratropium (Duoneb 3.0-0.5 Mg/3 Ml) 3 ml NEB Q4H PRN PRN Reason: Shortness Of Breath/wheezing Alprazolam (Xanax) 0.25 mg PO BID PRN PRN Reason: Anxiety Amlodipine Besylate (Norvasc) 10 mg PO BEDTIME [facility] Apixaban (Eliquis) 5 mg PO BID [facility] Last Admin: 10/02/18 08:55 Dose: 5 mg Artificial Tears (Refresh Liquigel 1%) 0 ml EYEBOTH QID [facility] Last Admin: 10/02/18 14:07 Dose: 1 drop Azithromycin (Zithromax) 250 mg PO Q24H [facility] Benzonatate (Tessalon Perles) 100 mg PO TID [facility] Last Admin: 10/02/18 14:06 Dose: 100 mg Bisacodyl (Dulcolax) 5 mg PO DAILY PRN PRN Reason: Constipation Budesonide (Pulmicort) 0.25 mg INH BIDRT [facility] Last Admin: 10/02/18 06:53 Dose: 0.25 mg Calcium Carbonate/Glycine (Tums) 1,000 mg PO BEDTIME [facility] Last Admin: 10/01/18 20:32 Dose: 1,000 mg Captopril (Capoten) 50 mg PO BIDAC [facility] Last Admin: 10/02/18 06:37 Dose: 50 mg Cephalexin (Keflex) 500 mg PO Q12H [facility] Cholecalciferol (Vitamin D3) 5,000 unit PO BEDTIME [facility] Last Admin: 10/01/18 20:32 Dose: 5,000 unit Clopidogrel Bisulfate (Plavix) 75 mg PO DAILY [facility] Last Admin: 10/02/18 08:57 Dose: 75 mg Dextrose/Water (Dextrose 50% In Water) 50 ml IVPUSH ASDIRECTED PRN PRN Reason: Hypoglycemia Docusate Sodium (Colace) 100 mg PO BID PRN PRN Reason: Constipation Ferrous Sulfate (Slow Release Iron) 160 mg PO DAILY [facility] Last Admin: 10/02/18 08:55 Dose: 160 mg Flunisolide (Nasalide Nasal [place]) 0 ml GISEL BID [facility] Last Admin: 10/02/18 08:59 Dose: 2 spray Furosemide (Lasix) 40 mg PO DAILY [facility] Last Admin: 10/02/18 08:57 Dose: 40 mg Gabapentin (Neurontin) 100 mg PO BID [facility] Last Admin: 10/02/18 08:55 Dose: 100 mg Gabapentin (Neurontin) 300 mg PO BID [facility] Last Admin: 10/02/18 08:55 Dose: 300 mg Glycopyrrolate (Seebri Neohaler) 0 mcg IH BID [facility] Last Admin: 10/01/18 23:35 Dose: Not Given Guaifenesin (Mucinex) 1,200 mg PO BID [facility] Last Admin: 10/02/18 08:56 Dose: 1,200 mg Hydralazine HCl (Apresoline) 10 mg IVPUSH Q4H PRN PRN Reason: Hypertension Last Admin: 10/02/18 10:55 Dose: 10 mg Hydrochlorothiazide (Hydrochlorothiazide) 12.5 mg PO BIDDIURETIC [facility] Last Admin: 10/02/18 14:06 Dose: 12.5 mg Hydromorphone HCl (Dilaudid) 0.25 mg IVPUSH Q2H PRN PRN Reason: Pain (severe 7-10) Promethazine HCl 6.25 mg/ (Sodium Chloride) 50.25 mls @ 100 mls/hr IV Q6H PRN PRN Reason: Nausea/Vomiting Insulin Glargine (Lantus) 48 unit SUBCUT BIDAC [facility] Insulin Human Lispro (Humalog) 0 unit SUBCUT QIDACANDBED [facility]; Protocol Last Admin: 10/02/18 11:57 Dose: 15 units Isosorbide Mononitrate (Imdur) 120 mg PO DAILY [facility] Last Admin: 10/02/18 08:54 Dose: 120 mg Lamotrigine (Lamotrigine) 50 mg PO BEDTIME [facility] Last Admin: 10/01/18 20:32 Dose: 50 mg Levothyroxine Sodium (Synthroid) 50 mcg PO ACBREAKFAST [facility] Last Admin: 10/02/18 06:37 Dose: 50 mcg Lorazepam (Ativan) 2 mg IVPUSH Q4H PRN PRN Reason: Seizures Magnesium Hydroxide (Milk Of Magnesia) 30 ml PO Q12H PRN PRN Reason: Constipation Metoprolol Tartrate (Lopressor) 5 mg IVPUSH Q4H PRN PRN Reason: Tachycardia Metoprolol Tartrate (Lopressor) 50 mg PO BID [facility] Last Admin: 10/02/18 08:57 Dose: 50 mg Montelukast Sodium (Singulair) 10 mg PO BEDTIME [facility] Last Admin: 10/01/18 20:32 Dose: 10 mg Mupirocin (Bactroban Oint) 0 gm TOP BID [facility] Last Admin: 10/02/18 09:06 Dose: Not Given Naphazoline HCl/Zinc Sulfate (Clear Eyes Itchy Eye Rlf Drops) 0 ml EYEBOTH DAILY [facility] Last Admin: 10/02/18 08:58 Dose: 1 drop Nitroglycerin (Nitrostat) 0.4 mg SL ASDIRECTED PRN PRN Reason: Chest Pain Pantoprazole Sodium (Protonix) 40 mg PO DAILY@0700 [facility] Last Admin: 10/02/18 06:37 Dose: 40 mg Arformoterol 15 Mcg ((Brovana)) 0 each NEB BID [facility] Last Admin: 10/02/18 09:56 Dose: Not Given Phenol/Menthol (Chloraseptic Throat [place]) 0 ml MUCMEM Q2H PRN PRN Reason: SORE THROAT Polyethylene Glycol (Miralax) 17 gm PO DAILY PRN PRN Reason: Constipation Prednisone (Prednisone) 10 mg PO BID [facility] Promethazine HCl/Codeine (Phenergan With Codeine) 5 ml PO Q8H PRN PRN Reason: COUGH Ranolazine (Ranexa) 500 mg PO BID [facility] Last Admin: 10/02/18 08:54 Dose: 500 mg Rosuvastatin Calcium (Crestor) 20 mg PO DAILY [facility] Last Admin: 10/02/18 08:54 Dose: 20 mg Saccharomyces Boulardii (Florastor) 250 mg PO BID [facility] Last Admin: 10/02/18 08:55 Dose: 250 mg Senna/Docusate Sodium (Senna Plus) 1 tab PO BID PRN PRN Reason: Constipation Sodium Chloride (Saline Flush) 10 ml FLUSH ASDIRECTED PRN PRN Reason: Keep Vein Open Last Admin: 09/30/18 16:37 Dose: 10 ml Tamsulosin HCl (Flomax) 0.8 mg PO BEDTIME [facility] Last Admin: 10/01/18 20:32 Dose: 0.8 mg Triamcinolone Acetonide (Triamcinolone Acetonide 0.1% Crm) 0 gm TOP DAILY PRN PRN Reason: Rash Discontinued Medications Acetaminophen (Tylenol) 650 mg PO NOW ONE Stop: 09/30/18 14:30 Last Admin: 09/30/18 14:58 Dose: 650 mg Acetaminophen (Tylenol) 650 mg PO Q4H PRN PRN Reason: Pain (Mild 1-3)/fever Albuterol/Ipratropium (Duoneb 3.0-0.5 Mg/3 Ml) 3 ml NEB ONETIME ONE Stop: 09/30/18 16:09 Last Admin: 09/30/18 16:19 Dose: 3 ml Apixaban (Eliquis) 5 mg PO BIDRT [facility] Artificial Tears (Refresh Liquigel 1%) 0 ml EYEBOTH BEDTIME [facility] Ceftriaxone Sodium (Rocephin) 2 gm IVPUSH Q24H [facility] Last Admin: 09/30/18 20:49 Dose: Not Given Famotidine (Pepcid) 20 mg PO BID [facility] Ferrous Sulfate (Ferrous Sulfate) 325 mg PO WITHBREAKFAST [facility] Gabapentin (Neurontin) 100 mg PO BID [facility] Last Admin: 10/01/18 02:00 Dose: Not Given Gabapentin (Neurontin) 300 mg PO BID [facility] Last Admin: 10/01/18 02:00 Dose: Not Given Hydralazine HCl (Apresoline) 10 mg PO ONETIME ONE Stop: 09/30/18 15:35 Last Admin: 09/30/18 15:58 Dose: 10 mg Ceftriaxone Sodium 1 gm/ (Sodium Chloride) 100 mls @ 200 mls/hr IV ONETIME ONE Stop: 09/30/18 16:38 Last Admin: 09/30/18 16:35 Dose: 200 mls/hr Azithromycin 500 mg/ Sodium (Chloride) 250 mls @ 250 mls/hr IV Q24H [facility] Last Admin: 10/01/18 21:02 Dose: 250 mls/hr Ceftriaxone Sodium 2 gm/ (Sodium Chloride) 100 mls @ 200 mls/hr IV Q24H [facility] Last Admin: 10/01/18 20:32 Dose: 200 mls/hr Ceftriaxone Sodium 1 gm/ (Sodium Chloride) 100 mls @ 200 mls/hr IV ONETIME ONE Stop: 09/30/18 19:59 Last Admin: 09/30/18 22:23 Dose: 200 mls/hr Insulin Glargine (Lantus) 45 unit SUBCUT BIDAC [facility] Last Admin: 10/02/18 06:38 Dose: 45 units Non-Formulary Medication (Dextran/Hypromellose/Glycerin [Genteal Tears 0.1%-0.2% -0.3%]) 1 drop EYEBOTH BEDTIME [facility] Last Admin: 10/01/18 01:29 Dose: Not Given Arformoterol 15 Mcg ((Brovana)) 0 each NEB BID [facility] Last Admin: 10/01/18 07:12 Dose: Not Given Prednisone (Prednisone) 20 mg PO BID [facility] Last Admin: 10/02/18 08:57 Dose: 20 mg - Exam Quality Assessment: Supplemental Oxygen (3L NC), DVT Prophylaxis General: Alert, Oriented, Cooperative HEENT: Pupils Equal Neck: Supple Lungs: Normal Respiratory Effort, Decreased Breath Sounds Cardiovascular: Regular Rate, Regular Rhythm GI/Abdominal Exam: Normal Bowel Sounds, Soft, Non-Tender, No Organomegaly, No Distention, No Abnormal Bruit, No Mass, Pelvis Stable (Male) Exam: Deferred Back Exam: Normal Inspection Extremities: Normal Range of Motion, Non-Tender, Normal Capillary Refill, Pedal Edema (1+ pitting bilaterally, chronic) Peripheral Pulses: 2+: Posterior Tibial (L), Posterior Tibial (R), Dorsalis Pedis (L), Dorsalis Pedis (R) Skin: Warm, Dry, Intact Neurological: No New Focal Deficit Psy/Mental Status: Alert, Normal Affect, Normal Mood - Problem List & Annotations (1) HTN (hypertension) SNOMED Code(s): 12328691 Code(s): I10 - ESSENTIAL (PRIMARY) HYPERTENSION Status: Chronic Priority : Medium Current Visit: Yes Qualifiers: Hypertension type: unspecified Qualified Code(s): I10 - Essential (primary ) hypertension (2) Pneumonia SNOMED Code(s): 837596828 Code(s): J18.9 - PNEUMONIA, UNSPECIFIED ORGANISM Status: Acute Priority: High Current Visit: Yes Qualifiers: Pneumonia type: due to unspecified organism Laterality: right Lung location: lower lobe of lung Qualified Code(s): J18.1 - Lobar pneumonia, unspecified organism (3) Dizziness of unknown cause SNOMED Code(s): 033481421 Code(s): R42 - DIZZINESS AND GIDDINESS Status: Resolved Priority: High Current Visit: Yes (4) Hemoptysis SNOMED Code(s): 30755158 Code(s): R04.2 - HEMOPTYSIS Status: Acute Priority: High Current Visit : Yes - Problem List Review Problem List Initiated/Reviewed/Updated: Yes - My Orders Last 24 Hours: My Active Orders 10/02/18 09:00 Ferrous Sulfate [Slow Release Iron] 160 mg PO DAILY 10/03/18 05:11 BASIC METABOLIC PANEL,BMP [CHEM] AM C-REACTIVE PROTEIN [CHEM] AM CBC WITH AUTO DIFF [HEME] AM MAGNESIUM [CHEM] AM PRO B-TYPE NATRIUR PEPT,BNPPRO [CHEM] AM 10/04/18 05:11 BASIC METABOLIC PANEL,BMP [CHEM] AM C-REACTIVE PROTEIN [CHEM] AM CBC WITH AUTO DIFF [HEME] AM MAGNESIUM [CHEM] AM PRO B-TYPE NATRIUR PEPT,BNPPRO [CHEM] AM 10/05/18 05:11 BASIC METABOLIC PANEL,BMP [CHEM] AM C-REACTIVE PROTEIN [CHEM] AM CBC WITH AUTO DIFF [HEME] AM MAGNESIUM [CHEM] AM PRO B-TYPE NATRIUR PEPT,BNPPRO [CHEM] AM - Plan Plan:: Assessment/Plan: Acute: PNA right lung base, Improving * Fever, body aches, productive cough w/ greenish sputum x 1.5-2 weeks * Afebrile, WBC 13.45--> 11.96--> 9.53, CRP 6.6--> 14.7--> 9.9 * 94% on 3L (chronic per pt) * CXR 09/30/18: * 1. Findings suspicious for mild area of pneumonia with the right lung base. * 2. Slight scarring within the left lung base. * Strep pneumo pending * RVP, Mycoplasma negative * Sputum culture--> moderate gram positive cocci; pending culture * Influenza negative * RT/Duonebs/IS/Acapella * CXR 10/02/18: * 1. Increased density within the R lung base felt to be slightly improved from previous exam. * 2. Stable scarring believed to be present within the L base. * Rocephin started in ED--> Continue and add Azithromycin Hemoptysis, Improving --> Pt states sputum is now more greenish w/ minimal blood * R/O TB * Risk Factors: DM2, COPD, previous smoker (quit 2013), irritation from coughing for weeks, has had 1 sick contact * Denies any recent travel, lives alone * Vit D low 22.1, Fe low at 48--> supplement * Quantiferon TB pending * AFB sputum smear 2/3 negative for TB * AFB sputum 2/3 culture pending * Airborne precautions CHF * Acute on Chronic * BNP 701--> 1720--> 762, 1+ pitting edema bilaterally * ECHO 10/01/18: * LVEF 55-60% * Grade 1 impaired relaxation of LV diastolic filling * Mildly dilated L atrium * Mild aortic valve sclerosis * Continue at-home Lasix * Lasix IV push PRN Dizziness * Acute on chronic * Vestibular Consult--> exam negative * MRI Brain 04/02/16--> nothing acute seen Mild Confusion, Improving * Risk factor: PNA/current illness * Thought he was in [place], has difficulty answering questions--> knows where he is today * No slurred speech or neurological deficits on exam * Cog Evaluation negative HTN * Acute on Chronic * Likely 2/2 not taking all of his HTN medications today * Monitor * PRN Hydralazine * Add Norvasc 10QHS and HCTZ 12.5 BID Hyperglycemia w/ DM2 * 300's-400's * Risk factors: over-eating/ordering more food, currently on Prednisone * A1C 7.8 * Blood Glucose Checks, Insulin sliding scale * Diabetic education, Dietary consult * Home Medications: * Decrease Prednisone 20BID-->10BID * Increase Lantus 45BID--> 48 BID Chronic: HLD * Lipid panel WNL except low HDL at 32 CAD s/p Coronary Artery Stent MD COPD CKD III GERD OA h/o Hypomagnesemia Migraines BPH Hypothyroid Obesity Plan: Admit to Medical Floor Droplet/Respiratory precautions Routine AM Labs ADA/Heart Healthy diet DVT/GI prophylaxis--> on Protonix and Eliquis CM/SW PT/OT--> recommend PT for additional strengthening, balance, and conditioning exercises Code Status: Full Code; PCP: Dr. Saleem Guillermo
[2018-10-02] MEDS: Cephalexin 500 MG Cap PO SCH (20:35)
[2018-10-02] MEDS: Cholecalciferol (Vitamin D3) 5,000 UNIT Tab PO SCH (20:35)
[2018-10-02] MEDS: Tamsulosin 0.4 MG Cap.ER PO SCH (20:36)
[2018-10-02] MEDS: predniSONE 10 MG Tab PO SCH (20:36)
[2018-10-02] MEDS: Azithromycin 250 MG Tab PO SCH (20:36)
[2018-10-02] MEDS: Montelukast 10 MG Tab PO SCH (20:36)
[2018-10-02] MEDS: amLODIPine 10 MG Tab PO SCH (20:37)
[2018-10-02] MEDS: Calcium Carbonate 500 MG Tab.Chew PO SCH (20:37)
[2018-10-02] MEDS: Benzocaine/Cetylpyridinium/Menthol Lozenge MUCMEM PRN (20:37)
[2018-10-02] MEDS: lamoTRIgine 100 MG Tab PO SCH (20:37)
[2018-10-02] MEDS: Glycopyrrolate 15.6 MCG Cap.W.Dev Kit of 6 IH SCH ×2 (21:16→21:50)
[2018-10-03] MEDS: ARFORMOTEROL 15 MCG NEB SCH ×3 (00:23→20:57)
[2018-10-03] MEDS: hydrALAZINE 20 MG/ML SDV IVPUSH PRN (01:38)
[2018-10-03] MEDS: Budesonide 0.25 MG/2 ML Neb Susp INH SCH ×2 (05:24→20:57)
[2018-10-03] MEDS: Pantoprazole 40 MG Tab.CR PO SCH (06:06)
[2018-10-03] MEDS: Levothyroxine 50 MCG Tab PO SCH (06:06)
[2018-10-03] MEDS: Hydrochlorothiazide 12.5 MG Cap PO SCH ×2 (06:06→13:25)
[2018-10-03] MEDS: Insulin Glarg,Human.Rec.Analog 100 UNIT/ML ML SUBCUT SCH ×2 (06:07→17:04)
[2018-10-03] MEDS ORDERED: cloNIDine 0.3 MG/Day Transdermal Patch TRDERM ONE (07:31)
[2018-10-03] MEDS: Insulin Lispro 100 UNIT/ML 10 ML VIAL SUBCUT SCH ×4 (08:48→22:21)
[2018-10-03] MEDS: Rosuvastatin 10 MG Tab PO SCH (08:49)
[2018-10-03] MEDS: Gabapentin 300 MG Cap PO SCH ×2 (08:50→22:01)
[2018-10-03] MEDS: Saccharomyces Boulardii (Probiotic) 250 MG Cap PO SCH ×2 (08:50→21:57)
[2018-10-03] MEDS: Isosorbide Mononitrate 60 MG Tab.ER PO SCH (08:50)
[2018-10-03] MEDS: Gabapentin 100 MG Cap PO SCH ×2 (08:51→22:00)
[2018-10-03] MEDS: Furosemide 40 MG Tab PO SCH (08:52)
[2018-10-03] MEDS: predniSONE 10 MG Tab PO SCH ×2 (08:52→22:01)
[2018-10-03] MEDS: Cephalexin 500 MG Cap PO SCH ×2 (08:52→19:10)
[2018-10-03] MEDS: Metoprolol Tartrate 50 MG Tab PO SCH ×2 (08:53→21:59)
[2018-10-03] MEDS: Clopidogrel 75 MG Tab PO SCH (08:53)
[2018-10-03] MEDS: Benzonatate 100 MG Cap PO SCH ×3 (08:56→22:03)
[2018-10-03] MEDS: Apixaban 5 MG Tab PO SCH ×2 (08:57→21:56)
[2018-10-03] MEDS: guaiFENesin 600 MG Tab.ER PO SCH ×2 (08:57→21:59)
[2018-10-03] MEDS: Naphazoline 0.12%/Zinc Sulfate/Glycerin Ophth Soln 15 ML Bottle EYEBOTH SCH (08:58)
[2018-10-03] MEDS: Ferrous Sulfate 160 MG TAB.ER PO SCH (08:58)
[2018-10-03] MEDS: Mupirocin Oint 22 GM Tube TOP SCH ×2 (08:59→21:55)
[2018-10-03] MEDS: Carboxymethylcellulose Sodium 1% Ophth Gel 15 ML Bottle EYEBOTH SCH ×4 (08:59→22:02)
[2018-10-03] MEDS: Glycopyrrolate 15.6 MCG Cap.W.Dev Kit of 6 IH SCH ×2 (11:09→22:02)
[2018-10-03] MEDS: Benzocaine/Cetylpyridinium/Menthol Lozenge MUCMEM PRN ×2 (13:25→19:10)
[2018-10-03] MEDS: Phenol 1.4% Oral Spray 177 ML Bottle MUCMEM PRN (14:54)
[2018-10-03] MEDS: Azithromycin 250 MG Tab PO SCH (19:10)
--- NOTE | 2018-10-03 19:29 | PCM.PN ---
- General Info Date of Service: 10/03/18 Admission Dx/Problem (Free Text): Admission Diagnosis/Problem Admission Diagnosis/Problem Pneumonia Subjective Update: In to see Steve. He is sitting in a chair eating and watching TV. He has no current complaints and continues to feel better. States that his sputum is greenish w/ no blood. Sputum culture shows few pseudomonas aeruginosa. AFB sputum smear/culture 2/3 negative for TB. Quantiferon test negative. No concerns from nursing. Will likely D/C tomorrow. Functional Status: Reports: Pain Controlled, Tolerating Diet, Ambulating, Urinating - Review of Systems General: Reports: No Symptoms. Denies: Fever, Chills HEENT: Reports: No Symptoms Pulmonary: Reports: No Symptoms. Denies: Shortness of Breath, Cough Cardiovascular: Reports: No Symptoms. Denies: Chest Pain Gastrointestinal: Reports: No Symptoms. Denies: Abdominal Pain, Diarrhea, Nausea, Vomiting Genitourinary: Reports: No Symptoms Musculoskeletal: Reports: No Symptoms Skin: Reports: No Symptoms Neurological: Reports: No Symptoms Psychiatric: Reports: No Symptoms - Patient Data Vitals - Most Recent: Last Vital Signs Temp 98.1 F 10/03/18 14:53 Pulse 69 10/03/18 14:53 Resp 18 10/03/18 14:53 BP 134/91 H 10/03/18 17:06 Pulse Ox 94 L 10/03/18 14:53 Weight - Most Recent: 242 lb 8 oz I&O - Last 24 Hours: Intake & Output 10/03/18 10/03/18 10/03/18 06:59 14:59 22:59 Intake Total 665 731 7649 Output Total 2600 2700 Balance -1700 600 -300 Lab Results Last 24 Hours: Laboratory Results - last 24 hr 09/30/18 10/02/18 10/03/18 Range/Units 19:15 20:43 05:57 WBC (4.23-9.07) K/mm3 RBC (4.63-6.08) M/mm3 Hgb (13.7-17.5) gm/L Hct (40.1-51.0) % MCV (79.0-92.2) fl MCH (25.7-32.2) pg MCHC (32.2-35.5) g/dl RDW Std Deviation (35.1-43.9) fL Plt Count (163-337) K/mm3 MPV (9.4-12.3) fl Neut % (Auto) (34.0-67.9) % Lymph % (Auto) (21.8-53.1) % [place] % (Auto) (5.3-12.2) % Eos % (Auto) (0.8-7.0) Baso % (Auto) (0.1-1.2) % Neut # (Auto) (1.78-5.38) K/mm3 Lymph # (Auto) (1.32-3.57) K/mm3 [place] # (Auto) (0.30-0.82) K/mm3 Eos # (Auto) (0.04-0.54) K/mm3 Baso # (Auto) (0.01-0.08) K/mm3 Manual Slide Review Sodium (136-145) mEq/L Potassium (3.5-5.1) mEq/L Chloride (98-107) mEq/L Carbon Dioxide (21-32) mEq/L Anion Gap (5-15) BUN (7-18) mg/dL Creatinine (0.7-1.3) mg/dL Est Cr Clr Drug Dosing mL/min Estimated GFR (MDRD) (>60) mL/min BUN/Creatinine Ratio (14-18) Glucose (83-115) mg/dL POC Glucose 349 H 326 H (83-110) mg/dL Calcium (8.5-10.1) mg/dL Magnesium (1.8-2.4) mg/dl C-Reactive Protein (<1.0) mg/dL NT-Pro-B Natriuret Pep (0-450) pg/mL TB (QFT) Gold In Tube Negative 10/03/18 10/03/18 10/03/18 Range/Units 06:20 06:20 06:20 WBC 9.63 H (4.23-9.07) K/mm3 RBC 4.22 L (4.63-6.08) M/mm3 Hgb 12.1 L (13.7-17.5) gm/L Hct 38.1 L (40.1-51.0) % MCV 90.3 (79.0-92.2) fl MCH 28.7 (25.7-32.2) pg MCHC 31.8 L (32.2-35.5) g/dl RDW Std Deviation 45.1 H (35.1-43.9) fL Plt Count 155 L (163-337) K/mm3 MPV 10.8 (9.4-12.3) fl Neut % (Auto) 86.3 H (34.0-67.9) % Lymph % (Auto) 7.1 L (21.8-53.1) % [place] % (Auto) 5.5 (5.3-12.2) % Eos % (Auto) 0.1 L (0.8-7.0) Baso % (Auto) 0.1 (0.1-1.2) % Neut # (Auto) 8.31 H (1.78-5.38) K/mm3 Lymph # (Auto) 0.68 L (1.32-3.57) K/mm3 [place] # (Auto) 0.53 (0.30-0.82) K/mm3 Eos # (Auto) 0.01 L (0.04-0.54) K/mm3 Baso # (Auto) 0.01 (0.01-0.08) K/mm3 Manual Slide Review Abnormal smear Sodium 135 L (136-145) mEq/L Potassium 4.7 (3.5-5.1) mEq/L Chloride 96 L (98-107) mEq/L Carbon Dioxide 35 H (21-32) mEq/L Anion Gap 8.7 (5-15) BUN 32 H (7-18) mg/dL Creatinine 1.5 H (0.7-1.3) mg/dL Est Cr Clr Drug Dosing 48.51 mL/min Estimated GFR (MDRD) 45 (>60) mL/min BUN/Creatinine Ratio 21.3 H (14-18) Glucose 289 H (83-115) mg/dL POC Glucose (83-110) mg/dL Calcium 9.7 (8.5-10.1) mg/dL Magnesium 2.2 (1.8-2.4) mg/dl C-Reactive Protein 4.5 H* (<1.0) mg/dL NT-Pro-B Natriuret Pep 402 (0-450) pg/mL TB (QFT) Gold In Tube 10/03/18 10/03/18 Range/Units 11:16 17:03 WBC (4.23-9.07) K/mm3 RBC (4.63-6.08) M/mm3 Hgb (13.7-17.5) gm/L Hct (40.1-51.0) % MCV (79.0-92.2) fl MCH (25.7-32.2) pg MCHC (32.2-35.5) g/dl RDW Std Deviation (35.1-43.9) fL Plt Count (163-337) K/mm3 MPV (9.4-12.3) fl Neut % (Auto) (34.0-67.9) % Lymph % (Auto) (21.8-53.1) % [place] % (Auto) (5.3-12.2) % Eos % (Auto) (0.8-7.0) Baso % (Auto) (0.1-1.2) % Neut # (Auto) (1.78-5.38) K/mm3 Lymph # (Auto) (1.32-3.57) K/mm3 [place] # (Auto) (0.30-0.82) K/mm3 Eos # (Auto) (0.04-0.54) K/mm3 Baso # (Auto) (0.01-0.08) K/mm3 Manual Slide Review Sodium (136-145) mEq/L Potassium (3.5-5.1) mEq/L Chloride (98-107) mEq/L Carbon Dioxide (21-32) mEq/L Anion Gap (5-15) BUN (7-18) mg/dL Creatinine (0.7-1.3) mg/dL Est Cr Clr Drug Dosing mL/min Estimated GFR (MDRD) (>60) mL/min BUN/Creatinine Ratio (14-18) Glucose (83-115) mg/dL POC Glucose 245 H 257 H (83-110) mg/dL Calcium (8.5-10.1) mg/dL Magnesium (1.8-2.4) mg/dl C-Reactive Protein (<1.0) mg/dL NT-Pro-B Natriuret Pep (0-450) pg/mL TB (QFT) Gold In Tube Michael Results Last 24 Hours: Microbiology 09/30/18 16:15 Gram Stain - Final Sputum - Expectorated Sputum Culture - Final Pseudomonas Aeruginosa 09/30/18 16:15 M. tuberculosis Rifampin (PCR) - Final Sputum - Expectorated 10/01/18 08:50 Acid Fast Bacilli Smear - Final Sputum - Expectorated 09/30/18 16:15 Acid Fast Bacilli Smear - Final Sputum - Expectorated 10/01/18 08:50 M. tuberculosis Rifampin (PCR) - Final Sputum - Expectorated Med Orders - Current: Current Medications Acetaminophen (Tylenol) 975 mg PO BID PRN PRN Reason: Pain (mild 1-3) Hydrocodone Bitart/Acetaminophen (Sarah Ann 325-5 Mg) 1 tab PO Q4H PRN PRN Reason: Pain (moderate 4-6) Albuterol (Proventil Neb Soln) 2.5 mg NEB Q2H PRN PRN Reason: Shortness Of Breath/wheezing Albuterol/Ipratropium (Duoneb 3.0-0.5 Mg/3 Ml) 3 ml NEB Q4H PRN PRN Reason: Shortness Of Breath/wheezing Alprazolam (Xanax) 0.25 mg PO BID PRN PRN Reason: Anxiety Amlodipine Besylate (Norvasc) 10 mg PO BEDTIME [facility] Last Admin: 10/02/18 20:37 Dose: 10 mg Apixaban (Eliquis) 5 mg PO BID [facility] Last Admin: 10/03/18 08:57 Dose: 5 mg Artificial Tears (Refresh Liquigel 1%) 0 ml EYEBOTH QID [facility] Last Admin: 10/03/18 17:37 Dose: 1 drop Azithromycin (Zithromax) 250 mg PO Q24H [facility] Last Admin: 10/03/18 19:10 Dose: 250 mg Benzocaine/Menthol (Cepacol Sore Throat) 1 lozenge MUCMEM Q2HR PRN PRN Reason: Sore Throat Last Admin: 10/03/18 19:10 Dose: 1 lozenge Benzonatate (Tessalon Perles) 100 mg PO TID [facility] Last Admin: 10/03/18 14:57 Dose: 100 mg Bisacodyl (Dulcolax) 5 mg PO DAILY PRN PRN Reason: Constipation Budesonide (Pulmicort) 0.25 mg INH BIDRT [facility] Last Admin: 10/03/18 05:24 Dose: 0.25 mg Calcium Carbonate/Glycine (Tums) 1,000 mg PO BEDTIME [facility] Last Admin: 10/02/18 20:37 Dose: 1,000 mg Captopril (Capoten) 50 mg PO BIDAC [facility] Last Admin: 10/03/18 17:06 Dose: 50 mg Cephalexin (Keflex) 500 mg PO Q12H [facility] Last Admin: 10/03/18 19:10 Dose: 500 mg Cholecalciferol (Vitamin D3) 5,000 unit PO BEDTIME [facility] Last Admin: 10/02/18 20:35 Dose: 5,000 unit Clopidogrel Bisulfate (Plavix) 75 mg PO DAILY [facility] Last Admin: 10/03/18 08:53 Dose: 75 mg Dextrose/Water (Dextrose 50% In Water) 50 ml IVPUSH ASDIRECTED PRN PRN Reason: Hypoglycemia Docusate Sodium (Colace) 100 mg PO BID PRN PRN Reason: Constipation Ferrous Sulfate (Slow Release Iron) 160 mg PO DAILY [facility] Last Admin: 10/03/18 08:58 Dose: 160 mg Flunisolide (Nasalide Nasal Penrose) 0 ml GISEL BID [facility] Last Admin: 10/03/18 08:51 Dose: 1 spray Furosemide (Lasix) 40 mg PO DAILY [facility] Last Admin: 10/03/18 08:52 Dose: 40 mg Gabapentin (Neurontin) 100 mg PO BID [facility] Last Admin: 10/03/18 08:51 Dose: 100 mg Gabapentin (Neurontin) 300 mg PO BID [facility] Last Admin: 10/03/18 08:50 Dose: 300 mg Glycopyrrolate (Seebri Neohaler) 0 mcg IH BID [facility] Last Admin: 10/03/18 11:09 Dose: Not Given Guaifenesin (Mucinex) 1,200 mg PO BID [facility] Last Admin: 10/03/18 08:57 Dose: 1,200 mg Hydralazine HCl (Apresoline) 10 mg IVPUSH Q4H PRN PRN Reason: Hypertension Last Admin: 10/03/18 01:38 Dose: 10 mg Hydrochlorothiazide (Hydrochlorothiazide) 12.5 mg PO BIDDIURETIC [facility] Last Admin: 10/03/18 13:25 Dose: 12.5 mg Hydromorphone HCl (Dilaudid) 0.25 mg IVPUSH Q2H PRN PRN Reason: Pain (severe 7-10) Promethazine HCl 6.25 mg/ (Sodium Chloride) 50.25 mls @ 100 mls/hr IV Q6H PRN PRN Reason: Nausea/Vomiting Insulin Glargine (Lantus) 48 unit SUBCUT BIDAC [facility] Last Admin: 10/03/18 17:04 Dose: 48 units Insulin Human Lispro (Humalog) 0 unit SUBCUT QIDACANDBED [facility]; Protocol Last Admin: 10/03/18 17:37 Dose: 9 units Isosorbide Mononitrate (Imdur) 120 mg PO DAILY [facility] Last Admin: 10/03/18 08:50 Dose: 120 mg Lamotrigine (Lamotrigine) 50 mg PO BEDTIME [facility] Last Admin: 10/02/18 20:37 Dose: 50 mg Levothyroxine Sodium (Synthroid) 50 mcg PO ACBREAKFAST [facility] Last Admin: 10/03/18 06:06 Dose: 50 mcg Lorazepam (Ativan) 2 mg IVPUSH Q4H PRN PRN Reason: Seizures Magnesium Hydroxide (Milk Of Magnesia) 30 ml PO Q12H PRN PRN Reason: Constipation Metoprolol Tartrate (Lopressor) 5 mg IVPUSH Q4H PRN PRN Reason: Tachycardia Metoprolol Tartrate (Lopressor) 50 mg PO BID [facility] Last Admin: 10/03/18 08:53 Dose: 50 mg Montelukast Sodium (Singulair) 10 mg PO BEDTIME [facility] Last Admin: 10/02/18 20:36 Dose: 10 mg Mupirocin (Bactroban Oint) 0 gm TOP BID [facility] Last Admin: 10/03/18 08:59 Dose: 1 applic Naphazoline HCl/Zinc Sulfate (Clear Eyes Itchy Eye Rlf Drops) 0 ml EYEBOTH DAILY [facility] Last Admin: 10/03/18 08:58 Dose: 1 drop Nitroglycerin (Nitrostat) 0.4 mg SL ASDIRECTED PRN PRN Reason: Chest Pain Pantoprazole Sodium (Protonix) 40 mg PO DAILY@0700 [facility] Last Admin: 10/03/18 06:06 Dose: 40 mg Arformoterol 15 Mcg ((Brovana)) 0 each NEB BID [facility] Last Admin: 10/03/18 11:09 Dose: Not Given Phenol/Menthol (Chloraseptic Throat Penrose) 0 ml MUCMEM Q2H PRN PRN Reason: SORE THROAT Last Admin: 10/03/18 14:54 Dose: 2 spray Polyethylene Glycol (Miralax) 17 gm PO DAILY PRN PRN Reason: Constipation Prednisone (Prednisone) 10 mg PO BID [facility] Last Admin: 10/03/18 08:52 Dose: 10 mg Promethazine HCl/Codeine (Phenergan With Codeine) 5 ml PO Q8H PRN PRN Reason: COUGH Ranolazine (Ranexa) 500 mg PO BID [facility] Last Admin: 10/03/18 08:56 Dose: 500 mg Rosuvastatin Calcium (Crestor) 20 mg PO DAILY [facility] Last Admin: 10/03/18 08:49 Dose: 20 mg Saccharomyces Boulardii (Florastor) 250 mg PO BID [facility] Last Admin: 10/03/18 08:50 Dose: 250 mg Senna/Docusate Sodium (Senna Plus) 1 tab PO BID PRN PRN Reason: Constipation Sodium Chloride (Saline Flush) 10 ml FLUSH ASDIRECTED PRN PRN Reason: Keep Vein Open Last Admin: 09/30/18 16:37 Dose: 10 ml Tamsulosin HCl (Flomax) 0.8 mg PO BEDTIME [facility] Last Admin: 10/02/18 20:36 Dose: 0.8 mg Triamcinolone Acetonide (Triamcinolone Acetonide 0.1% Crm) 0 gm TOP DAILY PRN PRN Reason: Rash Discontinued Medications Acetaminophen (Tylenol) 650 mg PO NOW ONE Stop: 09/30/18 14:30 Last Admin: 09/30/18 14:58 Dose: 650 mg Acetaminophen (Tylenol) 650 mg PO Q4H PRN PRN Reason: Pain (Mild 1-3)/fever Albuterol/Ipratropium (Duoneb 3.0-0.5 Mg/3 Ml) 3 ml NEB ONETIME ONE Stop: 09/30/18 16:09 Last Admin: 09/30/18 16:19 Dose: 3 ml Apixaban (Eliquis) 5 mg PO BIDRT [facility] Artificial Tears (Refresh Liquigel 1%) 0 ml EYEBOTH BEDTIME [facility] Ceftriaxone Sodium (Rocephin) 2 gm IVPUSH Q24H [facility] Last Admin: 09/30/18 20:49 Dose: Not Given Clonidine HCl (Catapres-Tts 3) 0.3 mg TRDERM Q7D ONE Stop: 10/03/18 07:32 Last Admin: 10/03/18 10:15 Dose: Not Given Famotidine (Pepcid) 20 mg PO BID [facility] Ferrous Sulfate (Ferrous Sulfate) 325 mg PO WITHBREAKFAST [facility] Gabapentin (Neurontin) 100 mg PO BID [facility] Last Admin: 10/01/18 02:00 Dose: Not Given Gabapentin (Neurontin) 300 mg PO BID [facility] Last Admin: 10/01/18 02:00 Dose: Not Given Hydralazine HCl (Apresoline) 10 mg PO ONETIME ONE Stop: 09/30/18 15:35 Last Admin: 09/30/18 15:58 Dose: 10 mg Ceftriaxone Sodium 1 gm/ (Sodium Chloride) 100 mls @ 200 mls/hr IV ONETIME ONE Stop: 09/30/18 16:38 Last Admin: 09/30/18 16:35 Dose: 200 mls/hr Azithromycin 500 mg/ Sodium (Chloride) 250 mls @ 250 mls/hr IV Q24H [facility] Last Admin: 10/01/18 21:02 Dose: 250 mls/hr Ceftriaxone Sodium 2 gm/ (Sodium Chloride) 100 mls @ 200 mls/hr IV Q24H [facility] Last Admin: 10/01/18 20:32 Dose: 200 mls/hr Ceftriaxone Sodium 1 gm/ (Sodium Chloride) 100 mls @ 200 mls/hr IV ONETIME ONE Stop: 09/30/18 19:59 Last Admin: 09/30/18 22:23 Dose: 200 mls/hr [facility] Admin: 10/02/18 06:38 Dose: 45 units Non-Formulary Medication (Dextran/Hypromellose/Glycerin [Genteal Tears 0.1%-0.2% -0.3%]) 1 drop EYEBOTH BEDTIME [facility] Last Admin: 10/01/18 01:29 Dose: Not Given Arformoterol 15 Mcg ((Brovana)) 0 each NEB BID [facility] Last Admin: 10/01/18 07:12 Dose: Not Given Prednisone (Prednisone) 20 mg PO BID [facility] Last Admin: 10/02/18 08:57 Dose: 20 mg - Exam Quality Assessment: Supplemental Oxygen (3L NC), DVT Prophylaxis General: Alert, Oriented, Cooperative, No Acute Distress HEENT: Pupils Equal, Pupils Reactive, EOMI, Mucous Membr. Moist/[place] Neck: Supple Lungs: Normal Respiratory Effort, Decreased Breath Sounds Cardiovascular: Regular Rate, Regular Rhythm GI/Abdominal Exam: Normal Bowel Sounds, Soft, Non-Tender, No Organomegaly, No Distention, No Abnormal Bruit, No Mass, Pelvis Stable (Male) Exam: Deferred Back Exam: Normal Inspection Extremities: Normal Range of Motion, Non-Tender, Normal Capillary Refill, Pedal Edema Peripheral Pulses: 2+: Posterior Tibial (L), Posterior Tibial (R), Dorsalis Pedis (L), Dorsalis Pedis (R) Skin: Warm, Dry, Intact Neurological: No New Focal Deficit Psy/Mental Status: Alert - Problem List & Annotations (1) HTN (hypertension) SNOMED Code(s): 07060234 Code(s): I10 - ESSENTIAL (PRIMARY) HYPERTENSION Status: Chronic Priority : Medium Current Visit: Yes Qualifiers: Hypertension type: unspecified Qualified Code(s): I10 - Essential (primary ) hypertension (2) Pneumonia SNOMED Code(s): 132271581 Code(s): J18.9 - PNEUMONIA, UNSPECIFIED ORGANISM Status: Acute Priority: High Current Visit: Yes Qualifiers: Pneumonia type: due to unspecified organism Laterality: right Lung location: lower lobe of lung Qualified Code(s): J18.1 - Lobar pneumonia, unspecified organism (3) Dizziness of unknown cause SNOMED Code(s): 525503219 Code(s): R42 - DIZZINESS AND GIDDINESS Status: Resolved Priority: High Current Visit: Yes (4) Hemoptysis SNOMED Code(s): 25986096 Code(s): R04.2 - HEMOPTYSIS Status: Acute Priority: High Current Visit : Yes - Problem List Review Problem List Initiated/Reviewed/Updated: Yes - My Orders Last 24 Hours: My Active Orders 10/04/18 05:11 BASIC METABOLIC PANEL,BMP [CHEM] AM C-REACTIVE PROTEIN [CHEM] AM CBC WITH AUTO DIFF [HEME] AM MAGNESIUM [CHEM] AM PRO B-TYPE NATRIUR PEPT,BNPPRO [CHEM] AM 10/05/18 05:11 BASIC METABOLIC PANEL,BMP [CHEM] AM C-REACTIVE PROTEIN [CHEM] AM CBC WITH AUTO DIFF [HEME] AM MAGNESIUM [CHEM] AM PRO B-TYPE NATRIUR PEPT,BNPPRO [CHEM] AM - Plan Plan:: Assessment/Plan: Acute: PNA right lung base, Improving * Fever, body aches, productive cough w/ greenish sputum x 1.5-2 weeks * Afebrile, WBC 13.45--> 11.96--> 9.53, CRP 6.6--> 14.7--> 9.9--> 4.5 * 94% on 3L (chronic per pt) * CXR 09/30/18: * 1. Findings suspicious for mild area of pneumonia with the right lung base. * 2. Slight scarring within the left lung base. * Strep pneumo pending * RVP, Mycoplasma negative * Sputum culture--> few pseudomonas aeruginosa * Influenza negative * RT/Duonebs/IS/Acapella * CXR 10/02/18: * 1. Increased density within the R lung base felt to be slightly improved from previous exam. * 2. Stable scarring believed to be present within the L base. * Rocephin started in ED--> Continue and add Azithromycin--> PO Azithro and Keflex started Dizziness * Acute on chronic * Vestibular Consult--> exam negative * MRI Brain 04/02/16--> nothing acute seen Mild Confusion, Improving * Risk factor: PNA/current illness * Thought he was in [place], has difficulty answering questions--> knows where he is today * No slurred speech or neurological deficits on exam * Cog Evaluation negative HTN, Improving * Acute on Chronic * Likely 2/2 not taking all of his HTN medications today * Monitor * PRN Hydralazine * Add Norvasc 10QHS and HCTZ 12.5 BID Hyperglycemia w/ DM2 * 300's-400's * Risk factors: over-eating/ordering more food, currently on Prednisone * A1C 7.8 * Blood Glucose Checks, Insulin sliding scale * Diabetic education, Dietary consult * Home Medications: * Decrease Prednisone 20BID-->10BID * Increase Lantus 45BID--> 48 BID Resolved: Hemoptysis, Improving --> Pt states sputum is now more greenish w/ minimal blood * R/O TB * Risk Factors: DM2, COPD, previous smoker (quit 2013), irritation from coughing for weeks, has had 1 sick contact * Denies any recent travel, lives alone * Vit D low 22.1, Fe low at 48--> supplement * Quantiferon TB pending * AFB sputum smear/culture 09/28 negative for TB * Airborne precautions CHF * Acute on Chronic * BNP 701--> 1720--> 762--> 402 , 1+ pitting edema bilaterally * ECHO 10/01/18: * LVEF 55-60% * Grade 1 impaired relaxation of LV diastolic filling * Mildly dilated L atrium * Mild aortic valve sclerosis * Continue at-home Lasix * Lasix IV push PRN Chronic: HLD * Lipid panel WNL except low HDL at 32 CAD s/p Coronary Artery Stent [place] COPD CKD III GERD OA h/o Hypomagnesemia Migraines BPH Hypothyroid Obesity Plan: Admit to Medical Floor Droplet/Respiratory precautions Routine AM Labs ADA/Heart Healthy diet DVT/GI prophylaxis--> on Protonix and Eliquis CM/SW PT/OT--> recommend PT for additional strengthening, balance, and conditioning exercises Code Status: Full Code; PCP: Dr. Saleem Guillermo Discharge Plan: * recommended for PT and safety eval; pt also in need of walker for home. * Diabetic education outpt * Continue medications started here and f/u with PCP: * Azithro and Keflex x6 days * Florastor * HCTZ 25mg Qdaily, Norvasc 10 QHS * Decrease Prednisone 20BID-->10BID * Increase Lantus 45BID--> 48 BID
--- NOTE | 2018-10-03 21:11 | PCM.DCSUM1 ---
<Cassandra Hernandez - Last Filed: 10/03/18 21:45> Discharge Summary - Hospital Course HPI Initial Comments: Patient is a 78 year old male who presents to the ED via ambulance for the evaluation of fevers/cough. The patient has had this cough for 1.5-2 weeks now. He has been taking regular OTC cold medications. He did have an appointment with his PCP on Saturday and he was feeling better, but over the weekend the patient states that he believes he has developed fever and body aches all over. He states that he feels as if he has been hit by a truck. He is now having a productive cough with which he brings up greenish sputum. He does note a history of COPD and pneumonia that required hospitalization. He states that his PCP did give him a medication, but cannot recall the name of the medication. This was for his cough; he did think that provided some relief. He states that over the weekend his blood sugars have been not well controlled. Diagnosis: Stroke: No Modified Mike Scale: No Symptoms at All Modified Lycoming Scale Score: 0 - Discharge Data Discharge Date: 10/04/18 (ADMIT 09/30/18) Discharge Disposition: Home, Self-Care 01 Condition: Good - Discharge Diagnosis/Problem(s) (1) HTN (hypertension) SNOMED Code(s): 81132707 ICD Code: I10 - ESSENTIAL (PRIMARY) HYPERTENSION Status: Chronic Priority : Medium Current Visit: Yes Qualifiers: Hypertension type: unspecified Qualified Code(s): I10 - Essential (primary ) hypertension (2) Pneumonia SNOMED Code(s): 110525843 ICD Code: J18.9 - PNEUMONIA, UNSPECIFIED ORGANISM Status: Acute Priority : High Current Visit: Yes Qualifiers: Pneumonia type: due to unspecified organism Laterality: right Lung location: lower lobe of lung Qualified Code(s): J18.1 - Lobar pneumonia, unspecified organism (3) Dizziness of unknown cause SNOMED Code(s): 881182845 ICD Code: R42 - DIZZINESS AND GIDDINESS Status: Resolved Priority: High Current Visit: Yes (4) Hemoptysis SNOMED Code(s): 20197882 ICD Code: R04.2 - HEMOPTYSIS Status: Acute Priority: High Current Visit : Yes - Patient Summary/Data Operative Procedure(s) Performed: none Complications: none Consults: Consultations 09/30/18 18:52 Consult to Case Management/Division Order Analyst [CONS] Routine Consult to Diabetic Nurse Specialist [CONS] Routine OT Evaluation and Treatment [CONS] Routine PT Evaluation and Treatment [CONS] Routine Respiratory Care Assess and Treatment [CONS] Routine 09/30/18 20:23 PT Evaluation and Treatment [CONS] Routine MORTGAGE BROKER Evaluation and Treatment [CONS] Routine Labs Pending at D/C: none Recommended Follow-up Testing/Procedures: F/U with PCP in 7-10 days -discuss medication changes made here and plan -recheck iron and vitamin D F/U outpt diabetic education Planned Operative Procedure(s) after DC: none Hospital Course: Assessment/Plan: Acute: PNA right lung base, Improving * Fever, body aches, productive cough w/ greenish sputum x 1.5-2 weeks * Afebrile, WBC 13.45--> 11.96--> 9.53, CRP 6.6--> 14.7--> 9.9--> 4.5 * 94% on 3L (chronic per pt) * CXR 09/30/18: * 1. Findings suspicious for mild area of pneumonia with the right lung base. * 2. Slight scarring within the left lung base. * Strep pneumo pending * RVP, Mycoplasma negative * Sputum culture--> few pseudomonas aeruginosa * Influenza negative * RT/Duonebs/IS/Acapella * CXR 10/02/18: * 1. Increased density within the R lung base felt to be slightly improved from previous exam. * 2. Stable scarring believed to be present within the L base. * Rocephin started in ED--> Continue and add Azithromycin--> PO Azithro and Keflex started Dizziness * Acute on chronic * Vestibular Consult--> exam negative * MRI Brain 04/02/16--> nothing acute seen Mild Confusion, Improving * Risk factor: PNA/current illness * Thought he was in [place], has difficulty answering questions--> knows where he is today * No slurred speech or neurological deficits on exam * Cog Evaluation negative for deficit HTN, Improving * Acute on Chronic * Likely 2/2 not taking all of his HTN medications today * Monitor * PRN Hydralazine * Add Norvasc 10QHS and HCTZ 12.5 BID Hyperglycemia w/ DM2 * 300's-400's * Risk factors: over-eating/ordering more food, currently on Prednisone * A1C 7.8 * Blood Glucose Checks, Insulin sliding scale * Diabetic education, Dietary consult * Home Medications: * Decrease Prednisone 20BID-->10BID * Increase Lantus 45BID--> 48 BID Resolved: Hemoptysis, Improving --> Pt states sputum is now more greenish w/ minimal blood * R/O TB * Risk Factors: DM2, COPD, previous smoker (quit 2013), irritation from coughing for weeks, has had 1 sick contact * Denies any recent travel, lives alone * Vit D low 22.1, Fe low at 48--> supplement * Quantiferon TB NEGATIVE * AFB sputum smear/culture 2/3 negative for TB * Airborne precautions CHF * Acute on Chronic * BNP 701--> 1720--> 762--> 402 , 1+ pitting edema bilaterally * ECHO 10/01/18: * LVEF 55-60% * Grade 1 impaired relaxation of LV diastolic filling * Mildly dilated L atrium * Mild aortic valve sclerosis * Continue at-home Lasix * Lasix IV push PRN Chronic: HLD * Lipid panel WNL except low HDL at 32 CAD s/p Coronary Artery Stent IA COPD CKD III GERD OA h/o Hypomagnesemia Migraines BPH Hypothyroid Obesity Plan: Admit to Medical Floor Droplet/Respiratory precautions Routine AM Labs ADA/Heart Healthy diet DVT/GI prophylaxis--> on Protonix and Eliquis CM/SW PT/OT--> recommend HH PT for additional strengthening, balance, and conditioning exercises Code Status: Full Code; PCP: Dr. Saleem Guillermo Discharge Plan: * HH recommended for PT and safety eval; pt also in need of walker for home. * Diabetic education outpt * Continue medications started here and f/u with PCP in 7-10 days: * Azithro and Keflex x6 days * Florastor * HCTZ 25mg Qdaily, Norvasc 10 QHS * Decrease Prednisone 20BID-->10BID * Increase Lantus 45BID--> 48 BID * Vitamin D 5000U QHS * Ferrous sulfate 160mg daily * PCP to recheck Iron, Vit D, and BP HH: Do to recent medical condition it is taking increasing effort for pt to leave the home. Pt is walker/scooter dependent, has decreased level of endurance, decreased activity tolerance, unsteady gait, dyspnea with activity, oxygen dependent and will benefit from services to increase level of independence. PT needed for additional strengthening, balance, and conditioning exercises. Discussed homebound status with patient and they agree and understand. Lives alone. Case management looking for community resources to assist. Primary care Physician is Dr. Saleem Guillermo. Steve did well here after being admitted for PNA and hemoptysis. TB was ruled out as his AFB sputum/cultures were negative and his Quantiferon test was also negative. He improved while on Azithromycin and Rocephin, and will send home on Azithromycin and Keflex for 6 more days for completion of PNA treament. Will also send home with Florastor for probiotic. His BP was elevated while here, so Norvasc 10mgQHS and HCTZ 12.5BID were added to his home regimen while here with improvement. Will send home with a prescription for both. His Iron and Vitamin D were also found to be low here, so will send home with supplement and can f/u with PCP for further treatment if deemed necessary. His A1C was found to be 7.8 and his glucose elevated to the 300-400's. Recommend f/u with PCP regarding this issue and to continue diabetic education outpt. 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 He also complained of dizziness while here, which is a chronic issue per pt, and Vestibular and neuro exam were negative (previous MRI in 2016 was also negative for same issue). Recommend f/u with PCP in 7-10 days regarding these issues, to go over medication changes and if want to keep them, and also to recheck Iron, Vit D and BP. PT recommends home health and walker at home. He will be D/C'd home today. - Patient Instructions Diet: Heart Healthy Diet, Diabetic Diet Activity: Apply Ice Driving: May Drive Today Showering/Bathing: May Shower Notify Provider of: Fever, Increased Pain, Nausea and/or Vomiting - Discharge Plan *PRESCRIPTION DRUG MONITORING PROGRAM REVIEWED*: Not Applicable *COPY OF PRESCRIPTION DRUG MONITORING REPORT IN PATIENT FIOR: Not Applicable Prescriptions/Med Rec: amLODIPine Besylate [Norvasc] 10 mg PO BEDTIME #10 tablet cephALEXin [Keflex] 500 mg PO Q12H 6 Days #6 cap Cholecalciferol (Vitamin D3) [Vitamin D3] 5,000 unit PO BEDTIME 10 Days #10 tablet Ferrous Sulfate [Slow Release Iron] 160 mg PO DAILY 10 Days #10 tab.er predniSONE 10 mg PO BID 10 Days #20 tablet Saccharomyces Boulardii [Florastor] 250 mg PO BID #40 cap Home Medications: Home Meds Clopidogrel [Plavix] 75 mg PO DAILY 03/05/14 [History] Isosorbide Mononitrate [Imdur] 120 mg PO DAILY 03/05/14 [History] Nitroglycerin [Nitrostat] 0.4 mg SL ASDIRECTED PRN 03/05/14 [History] Polyethylene Glycol 1000 [Polyethylene Glycol] 1 scoop PO ASDIRECTED 03/05/14 [ History] Acetaminophen [Acetaminophen Extra Strength] 1,000 mg PO BID PRN 10/15/14 [ History] Insulin Aspart [Novolog Flexpen] 17 unit SQ ASDIRECTED 10/15/14 [History] Ranolazine [Ranexa] 500 mg PO BID 12/28/14 [History] Fluticasone Propionate [Flonase] 2 spray NS DAILY 03/30/16 [History] Pantoprazole [ProTONIX] 40 mg PO DAILY 03/30/16 [History] Budesonide [Pulmicort] 0.25 mg INH BID 06/30/16 [History] Furosemide [Lasix] 40 mg PO DAILY 06/30/16 [History] Levothyroxine Sodium [Synthroid] 50 mcg PO DAILY 06/30/16 [History] Montelukast [Singulair] 10 mg PO BEDTIME 06/30/16 [History] Ondansetron [Zofran ODT] 4 mg PO TID PRN 06/30/16 [History] Rosuvastatin [Crestor] 20 mg PO DAILY 06/30/16 [History] Tamsulosin [Flomax] 0.8 mg PO BEDTIME 06/30/16 [History] Captopril 50 mg PO BIDAC 06/17/17 [History] Gabapentin [Neurontin] 300 mg PO BID 06/17/17 [History] Umeclidinium [place] [Incruse Ellipta*] 62.5 mcg IH DAILY 06/17/17 [History] Apixaban [Eliquis] 5 mg PO BID 08/28/17 [History] Insulin Glargine,Hum.Rec.Anlog [Basaglar Kwikpen U-100] 45 units SQ BID [History] Triamcinolone Acetonide [Triamcinolone Acetonide 0.1% Crm] 1 applic TOP DAILY PRN 08/29/17 [History] Metoprolol Tartrate [Lopressor] 50 mg PO BID #60 tablet 09/01/17 [Rx] Arformoterol [Brovana] 15 mcg NEB BID 01/27/18 [History] Gabapentin [Neurontin] 100 mg PO BID 01/27/18 [History] Mupirocin Calcium [Mupirocin] 1 applic TOP BID 01/27/18 [History] ALPRAZolam [Xanax] 0.25 mg PO BID PRN 09/30/18 [History] Albuterol [Ventolin HFA] 2 puff INH QID PRN 09/30/18 [History] Azithromycin [Zithromax] 250 mg PO DAILY 09/30/18 [History] Benzonatate 100 mg PO TID 09/30/18 [History] Dextran/Hypromellose/Glycerin [Genteal Tears 0.1%-0.2%-0.3%] 1 drop EYEBOTH BEDTIME 09/30/18 [History] Doxycycline [Vibramycin] 100 mg PO BID 09/30/18 [History] Insulin Aspart [NovoLOG] 24 units SUBCUT ASDIRECTED 09/30/18 [History] Ofloxacin [Ocuflox 0.3% Ophth Soln] 5 drop EARBOTH BID 09/30/18 [History] Phenol [Chloraseptic] 1 spray PO Q2HR PRN 09/30/18 [History] Promethazine HCl/Codeine [Prometh-Codein 6.25-10 mg/5 ml] 10 ml PO Q8HR PRN 01/11 [History] lamoTRIgine [Lamotrigine] 50 mg PO BEDTIME 09/30/18 [History] Benzonatate 200 mg PO TID PRN 10/01/18 [History] Calcium Carb/Magnesium Hydrox [Antacid Chewable Tablet] 1,000 mg PO QID PRN 02/11 [History] Carboxymethylcellulose Sodium [Refresh Tears 0.5%] 1 drop EYEBOTH QID 10/01/18 [ History] Ciprofloxacin [Ciprofloxacin HCl] 500 mg PO DAILY 10/01/18 [History] Cyanocobalamin (Vitamin B-12) [Cyanocobalamin Injection] 1,000 mcg SUBCUT ASDIRECTED 10/01/18 [History] Naphazoline HCl/Pheniramine [Opcon-A Eye Drops] 1 drop EYEBOTH DAILY 10/01/18 [ History] Cholecalciferol (Vitamin D3) [Vitamin D3] 5,000 unit PO BEDTIME 10 Days #10 tablet 10/03/18 [Rx] Ferrous Sulfate [Slow Release Iron] 160 mg PO DAILY 10 Days #10 tab.er 10/03/18 [Rx] Saccharomyces Boulardii [Florastor] 250 mg PO BID #40 cap 10/03/18 [Rx] amLODIPine Besylate [Norvasc] 10 mg PO BEDTIME #10 tablet 10/03/18 [Rx] cephALEXin [Keflex] 500 mg PO Q12H 6 Days #6 cap 10/03/18 [Rx] predniSONE 10 mg PO BID 10 Days #20 tablet 10/03/18 [Rx] Oxygen Therapy Mode: Nasal Cannula Oxygen Flow Rate (L/min): 3 Patient Handouts: How to Take Your Blood Pressure, Pscn-ev-Cvaf, Hypertension, Giqt-ko-Dtic, Dizziness, Lian-wn-Epzv, Community-Acquired Pneumonia, Adult, Easy -to-Read Referrals: Saleem Guillermo Jr, MD [Primary Care Provider] - (Please call the [facility] on Saturday to make a follow-up appointment with Dr. Guillermo in 7-10 days.) - Discharge Summary/Plan Comment DC Time >30 min.: Yes (40) - Patient Data Vitals - Most Recent: Last Vital Signs Temp 98.1 F 10/03/18 14:53 Pulse 69 10/03/18 14:53 Resp 18 10/03/18 14:53 BP 134/91 H 10/03/18 17:06 Pulse Ox 97 10/03/18 20:59 Weight - Most Recent: 109.996 kg I&O - Last 24 hours: Intake & Output 10/03/18 10/03/18 10/03/18 06:59 14:59 22:59 Intake Total 035 316 6332 Output Total 2600 2700 Balance -1700 600 -300 Lab Results - Last 24 hrs: Laboratory Results - last 24 hr 09/30/18 10/02/18 10/03/18 Range/Units 19:15 20:43 05:57 WBC (4.23-9.07) K/mm3 RBC (4.63-6.08) M/mm3 Hgb (13.7-17.5) gm/L Hct (40.1-51.0) % MCV (79.0-92.2) fl MCH (25.7-32.2) pg MCHC (32.2-35.5) g/dl RDW Std Deviation (35.1-43.9) fL Plt Count (163-337) K/mm3 MPV (9.4-12.3) fl Neut % (Auto) (34.0-67.9) % Lymph % (Auto) (21.8-53.1) % Mower % (Auto) (5.3-12.2) % Eos % (Auto) (0.8-7.0) Baso % (Auto) (0.1-1.2) % Neut # (Auto) (1.78-5.38) K/mm3 Lymph # (Auto) (1.32-3.57) K/mm3 Mower # (Auto) (0.30-0.82) K/mm3 Eos # (Auto) (0.04-0.54) K/mm3 Baso # (Auto) (0.01-0.08) K/mm3 Manual Slide Review Sodium (136-145) mEq/L Potassium (3.5-5.1) mEq/L Chloride (98-107) mEq/L Carbon Dioxide (21-32) mEq/L Anion Gap (5-15) BUN (7-18) mg/dL Creatinine (0.7-1.3) mg/dL Est Cr Clr Drug Dosing mL/min Estimated GFR (MDRD) (>60) mL/min BUN/Creatinine Ratio (14-18) Glucose (83-115) mg/dL POC Glucose 349 H 326 H (83-110) mg/dL Calcium (8.5-10.1) mg/dL Magnesium (1.8-2.4) mg/dl C-Reactive Protein (<1.0) mg/dL NT-Pro-B Natriuret Pep (0-450) pg/mL TB (QFT) Gold In Tube Negative 10/03/18 10/03/18 10/03/18 Range/Units 06:20 06:20 06:20 WBC 9.63 H (4.23-9.07) K/mm3 RBC 4.22 L (4.63-6.08) M/mm3 Hgb 12.1 L (13.7-17.5) gm/L Hct 38.1 L (40.1-51.0) % MCV 90.3 (79.0-92.2) fl MCH 28.7 (25.7-32.2) pg MCHC 31.8 L (32.2-35.5) g/dl RDW Std Deviation 45.1 H (35.1-43.9) fL Plt Count 155 L (163-337) K/mm3 MPV 10.8 (9.4-12.3) fl Neut % (Auto) 86.3 H (34.0-67.9) % Lymph % (Auto) 7.1 L (21.8-53.1) % Mower % (Auto) 5.5 (5.3-12.2) % Eos % (Auto) 0.1 L (0.8-7.0) Baso % (Auto) 0.1 (0.1-1.2) % Neut # (Auto) 8.31 H (1.78-5.38) K/mm3 Lymph # (Auto) 0.68 L (1.32-3.57) K/mm3 Mower # (Auto) 0.53 (0.30-0.82) K/mm3 Eos # (Auto) 0.01 L (0.04-0.54) K/mm3 Baso # (Auto) 0.01 (0.01-0.08) K/mm3 Manual Slide Review Abnormal smear Sodium 135 L (136-145) mEq/L Potassium 4.7 (3.5-5.1) mEq/L Chloride 96 L (98-107) mEq/L Carbon Dioxide 35 H (21-32) mEq/L Anion Gap 8.7 (5-15) BUN 32 H (7-18) mg/dL Creatinine 1.5 H (0.7-1.3) mg/dL Est Cr Clr Drug Dosing 48.51 mL/min Estimated GFR (MDRD) 45 (>60) mL/min BUN/Creatinine Ratio 21.3 H (14-18) Glucose 289 H (83-115) mg/dL POC Glucose (83-110) mg/dL Calcium 9.7 (8.5-10.1) mg/dL Magnesium 2.2 (1.8-2.4) mg/dl C-Reactive Protein 4.5 H* (<1.0) mg/dL NT-Pro-B Natriuret Pep 402 (0-450) pg/mL TB (QFT) Gold In Tube 10/03/18 10/03/18 Range/Units 11:16 17:03 WBC (4.23-9.07) K/mm3 RBC (4.63-6.08) M/mm3 Hgb (13.7-17.5) gm/L Hct (40.1-51.0) % MCV (79.0-92.2) fl MCH (25.7-32.2) pg MCHC (32.2-35.5) g/dl RDW Std Deviation (35.1-43.9) fL Plt Count (163-337) K/mm3 MPV (9.4-12.3) fl Neut % (Auto) (34.0-67.9) % Lymph % (Auto) (21.8-53.1) % Mower % (Auto) (5.3-12.2) % Eos % (Auto) (0.8-7.0) Baso % (Auto) (0.1-1.2) % Neut # (Auto) (1.78-5.38) K/mm3 Lymph # (Auto) (1.32-3.57) K/mm3 Mower # (Auto) (0.30-0.82) K/mm3 Eos # (Auto) (0.04-0.54) K/mm3 Baso # (Auto) (0.01-0.08) K/mm3 Manual Slide Review Sodium (136-145) mEq/L Potassium (3.5-5.1) mEq/L Chloride (98-107) mEq/L Carbon Dioxide (21-32) mEq/L Anion Gap (5-15) BUN (7-18) mg/dL Creatinine (0.7-1.3) mg/dL Est Cr Clr Drug Dosing mL/min Estimated GFR (MDRD) (>60) mL/min BUN/Creatinine Ratio (14-18) Glucose (83-115) mg/dL POC Glucose 245 H 257 H (83-110) mg/dL Calcium (8.5-10.1) mg/dL Magnesium (1.8-2.4) mg/dl C-Reactive Protein (<1.0) mg/dL NT-Pro-B Natriuret Pep (0-450) pg/mL TB (QFT) Gold In Tube BEAR Results - Last 24 hrs: Microbiology 10/01/18 01:57 Streptococcus pneumoniae Antigen (M - Final Urine 09/30/18 16:15 Gram Stain - Final Sputum - Expectorated Sputum Culture - Final Pseudomonas Aeruginosa 09/30/18 16:15 M. tuberculosis Rifampin (PCR) - Final Sputum - Expectorated 10/01/18 08:50 Acid Fast Bacilli Smear - Final Sputum - Expectorated 09/30/18 16:15 Acid Fast Bacilli Smear - Final Sputum - Expectorated 10/01/18 08:50 M. tuberculosis Rifampin (PCR) - Final Sputum - Expectorated Med Orders - Current: Current Medications Acetaminophen (Tylenol) 975 mg PO BID PRN PRN Reason: Pain (mild 1-3) Hydrocodone Bitart/Acetaminophen ([place] 325-5 Mg) 1 tab PO Q4H PRN PRN Reason: Pain (moderate 4-6) Albuterol (Proventil Neb Soln) 2.5 mg NEB Q2H PRN PRN Reason: Shortness Of Breath/wheezing Albuterol/Ipratropium (Duoneb 3.0-0.5 Mg/3 Ml) 3 ml NEB Q4H PRN PRN Reason: Shortness Of Breath/wheezing Alprazolam (Xanax) 0.25 mg PO BID PRN PRN Reason: Anxiety Amlodipine Besylate (Norvasc) 10 mg PO BEDTIME [facility] Last Admin: 10/02/18 20:37 Dose: 10 mg Apixaban (Eliquis) 5 mg PO BID [facility] Last Admin: 10/03/18 08:57 Dose: 5 mg Artificial Tears (Refresh Liquigel 1%) 0 ml EYEBOTH QID [facility] Last Admin: 10/03/18 17:37 Dose: 1 drop Azithromycin (Zithromax) 250 mg PO Q24H [facility] Last Admin: 10/03/18 19:10 Dose: 250 mg Benzocaine/Menthol (Cepacol Sore Throat) 1 lozenge MUCMEM Q2HR PRN PRN Reason: Sore Throat Last Admin: 10/03/18 19:10 Dose: 1 lozenge Benzonatate (Tessalon Perles) 100 mg PO TID [facility] Last Admin: 10/03/18 14:57 Dose: 100 mg Bisacodyl (Dulcolax) 5 mg PO DAILY PRN PRN Reason: Constipation Budesonide (Pulmicort) 0.25 mg INH BIDRT [facility] Last Admin: 10/03/18 20:57 Dose: 0.25 mg Calcium Carbonate/Glycine (Tums) 1,000 mg PO BEDTIME [facility] Last Admin: 10/02/18 20:37 Dose: 1,000 mg Captopril (Capoten) 50 mg PO BIDAC [facility] Last Admin: 10/03/18 17:06 Dose: 50 mg Cephalexin (Keflex) 500 mg PO Q12H [facility] Last Admin: 10/03/18 19:10 Dose: 500 mg Cholecalciferol (Vitamin D3) 5,000 unit PO BEDTIME [facility] Last Admin: 10/02/18 20:35 Dose: 5,000 unit Clopidogrel Bisulfate (Plavix) 75 mg PO DAILY [facility] Last Admin: 10/03/18 08:53 Dose: 75 mg Dextrose/Water (Dextrose 50% In Water) 50 ml IVPUSH ASDIRECTED PRN PRN Reason: Hypoglycemia Docusate Sodium (Colace) 100 mg PO BID PRN PRN Reason: Constipation Ferrous Sulfate (Slow Release Iron) 160 mg PO DAILY [facility] Last Admin: 10/03/18 08:58 Dose: 160 mg Flunisolide (Nasalide Nasal [place]) 0 ml GISEL BID [facility] Last Admin: 10/03/18 08:51 Dose: 1 spray Furosemide (Lasix) 40 mg PO DAILY [facility] Last Admin: 10/03/18 08:52 Dose: 40 mg Gabapentin (Neurontin) 100 mg PO BID [facility] Last Admin: 10/03/18 08:51 Dose: 100 mg Gabapentin (Neurontin) 300 mg PO BID [facility] Last Admin: 10/03/18 08:50 Dose: 300 mg Glycopyrrolate (Seebri Neohaler) 0 mcg IH BID [facility] Last Admin: 10/03/18 11:09 Dose: Not Given Guaifenesin (Mucinex) 1,200 mg PO BID [facility] Last Admin: 10/03/18 08:57 Dose: 1,200 mg Hydralazine HCl (Apresoline) 10 mg IVPUSH Q4H PRN PRN Reason: Hypertension Last Admin: 10/03/18 01:38 Dose: 10 mg Hydrochlorothiazide (Hydrochlorothiazide) 12.5 mg PO BIDDIURETIC [facility] Last Admin: 10/03/18 13:25 Dose: 12.5 mg Hydromorphone HCl (Dilaudid) 0.25 mg IVPUSH Q2H PRN PRN Reason: Pain (severe 7-10) Promethazine HCl 6.25 mg/ (Sodium Chloride) 50.25 mls @ 100 mls/hr IV Q6H PRN PRN Reason: Nausea/Vomiting Insulin Glargine (Lantus) 48 unit SUBCUT BIDAC [facility] Last Admin: 10/03/18 17:04 Dose: 48 units Insulin Human Lispro (Humalog) 0 unit SUBCUT QIDACANDBED [facility]; Protocol Last Admin: 10/03/18 17:37 Dose: 9 units Isosorbide Mononitrate (Imdur) 120 mg PO DAILY [facility] Last Admin: 10/03/18 08:50 Dose: 120 mg Lamotrigine (Lamotrigine) 50 mg PO BEDTIME [facility] Last Admin: 10/02/18 20:37 Dose: 50 mg Levothyroxine Sodium (Synthroid) 50 mcg PO ACBREAKFAST [facility] Last Admin: 10/03/18 06:06 Dose: 50 mcg Lorazepam (Ativan) 2 mg IVPUSH Q4H PRN PRN Reason: Seizures Magnesium Hydroxide (Milk Of Magnesia) 30 ml PO Q12H PRN PRN Reason: Constipation Metoprolol Tartrate (Lopressor) 5 mg IVPUSH Q4H PRN PRN Reason: Tachycardia Metoprolol Tartrate (Lopressor) 50 mg PO BID [facility] Last Admin: 10/03/18 08:53 Dose: 50 mg Montelukast Sodium (Singulair) 10 mg PO BEDTIME [facility] Last Admin: 10/02/18 20:36 Dose: 10 mg Mupirocin (Bactroban Oint) 0 gm TOP BID [facility] Last Admin: 10/03/18 08:59 Dose: 1 applic Naphazoline HCl/Zinc Sulfate (Clear Eyes Itchy Eye Rlf Drops) 0 ml EYEBOTH DAILY [facility] Last Admin: 10/03/18 08:58 Dose: 1 drop Nitroglycerin (Nitrostat) 0.4 mg SL ASDIRECTED PRN PRN Reason: Chest Pain Pantoprazole Sodium (Protonix) 40 mg PO DAILY@0700 [facility] Last Admin: 10/03/18 06:06 Dose: 40 mg Arformoterol 15 Mcg ((Brovana)) 0 each NEB BID [facility] Last Admin: 10/03/18 20:57 Dose: Not Given Phenol/Menthol (Chloraseptic Throat [place]) 0 ml MUCMEM Q2H PRN PRN Reason: SORE THROAT Last Admin: 10/03/18 14:54 Dose: 2 spray Polyethylene Glycol (Miralax) 17 gm PO DAILY PRN PRN Reason: Constipation Prednisone (Prednisone) 10 mg PO BID [facility] Last Admin: 10/03/18 08:52 Dose: 10 mg Promethazine HCl/Codeine (Phenergan With Codeine) 5 ml PO Q8H PRN PRN Reason: COUGH Ranolazine (Ranexa) 500 mg PO BID [facility] Last Admin: 10/03/18 08:56 Dose: 500 mg Rosuvastatin Calcium (Crestor) 20 mg PO DAILY [facility] Last Admin: 10/03/18 08:49 Dose: 20 mg Saccharomyces Boulardii (Florastor) 250 mg PO BID [facility] Last Admin: 10/03/18 08:50 Dose: 250 mg Senna/Docusate Sodium (Senna Plus) 1 tab PO BID PRN PRN Reason: Constipation Sodium Chloride (Saline Flush) 10 ml FLUSH ASDIRECTED PRN PRN Reason: Keep Vein Open Last Admin: 09/30/18 16:37 Dose: 10 ml Tamsulosin HCl (Flomax) 0.8 mg PO BEDTIME [facility] Last Admin: 10/02/18 20:36 Dose: 0.8 mg Triamcinolone Acetonide (Triamcinolone Acetonide 0.1% Crm) 0 gm TOP DAILY PRN PRN Reason: Rash Discontinued Medications Acetaminophen (Tylenol) 650 mg PO NOW ONE Stop: 09/30/18 14:30 Last Admin: 09/30/18 14:58 Dose: 650 mg Acetaminophen (Tylenol) 650 mg PO Q4H PRN PRN Reason: Pain (Mild 1-3)/fever Albuterol/Ipratropium (Duoneb 3.0-0.5 Mg/3 Ml) 3 ml NEB ONETIME ONE Stop: 09/30/18 16:09 Last Admin: 09/30/18 16:19 Dose: 3 ml Apixaban (Eliquis) 5 mg PO BIDRT [facility] Artificial Tears (Refresh Liquigel 1%) 0 ml EYEBOTH BEDTIME [facility] [facility] Ceftriaxone Sodium (Rocephin) 2 gm IVPUSH Q24H [facility] Last Admin: 09/30/18 20:49 Dose: Not Given Clonidine HCl (Catapres-Tts 3) 0.3 mg TRDERM Q7D ONE Stop: 10/03/18 07:32 Last Admin: 10/03/18 10:15 Dose: Not Given Famotidine (Pepcid) 20 mg PO BID [facility] Ferrous Sulfate (Ferrous Sulfate) 325 mg PO WITHBREAKFAST [facility] Gabapentin (Neurontin) 100 mg PO BID [facility] Last Admin: 10/01/18 02:00 Dose: Not Given Gabapentin (Neurontin) 300 mg PO BID [facility] Last Admin: 10/01/18 02:00 Dose: Not Given Hydralazine HCl (Apresoline) 10 mg PO ONETIME ONE Stop: 09/30/18 15:35 Last Admin: 09/30/18 15:58 Dose: 10 mg Ceftriaxone Sodium 1 gm/ (Sodium Chloride) 100 mls @ 200 mls/hr IV ONETIME ONE Stop: 09/30/18 16:38 Last Admin: 09/30/18 16:35 Dose: 200 mls/hr Azithromycin 500 mg/ Sodium (Chloride) 250 mls @ 250 mls/hr IV Q24H [facility] Last Admin: 10/01/18 21:02 Dose: 250 mls/hr Ceftriaxone Sodium 2 gm/ (Sodium Chloride) 100 mls @ 200 mls/hr IV Q24H [facility] Last Admin: 10/01/18 20:32 Dose: 200 mls/hr Ceftriaxone Sodium 1 gm/ (Sodium Chloride) 100 mls @ 200 mls/hr IV ONETIME ONE Stop: 09/30/18 19:59 Last Admin: 09/30/18 22:23 Dose: 200 mls/hr Insulin Glargine (Lantus) 45 unit SUBCUT BIDAC [facility] Last Admin: 10/02/18 06:38 Dose: 45 units Non-Formulary Medication (Dextran/Hypromellose/Glycerin [Genteal Tears 0.1%-0.2% -0.3%]) 1 drop EYEBOTH BEDTIME [facility] Last Admin: 10/01/18 01:29 Dose: Not Given Arformoterol 15 Mcg ((Brovana)) 0 each NEB BID [facility] Last Admin: 10/01/18 07:12 Dose: Not Given Prednisone (Prednisone) 20 mg PO BID [facility] Last Admin: 10/02/18 08:57 Dose: 20 mg <Karma Aguilar M - Last Filed: 10/04/18 14:32> Discharge Summary - Patient Summary/Data Consults: Consultations 09/30/18 18:52 Consult to Case Management/Division Order Analyst [CONS] Routine Consult to Diabetic Nurse Specialist [CONS] Routine OT Evaluation and Treatment [CONS] Routine PT Evaluation and Treatment [CONS] Routine Respiratory Care Assess and Treatment [CONS] Routine 09/30/18 20:23 PT Evaluation and Treatment [CONS] Routine [employer] Evaluation and Treatment [CONS] Routine - General Info Date of Service: 10/04/18 Functional Status: Reports: Pain Controlled, Tolerating Diet, Ambulating, Urinating - Review of Systems General: Reports: No Symptoms HEENT: Reports: No Symptoms Pulmonary: Reports: No Symptoms Cardiovascular: Reports: No Symptoms Gastrointestinal: Reports: No Symptoms Genitourinary: Reports: No Symptoms Musculoskeletal: Reports: No Symptoms Skin: Reports: No Symptoms Neurological: Reports: No Symptoms Psychiatric: Reports: No Symptoms - Patient Data Vitals - Most Recent: Last Vital Signs Temp 36.6 C 10/04/18 08:50 Pulse 67 10/04/18 08:52 Resp 16 10/04/18 08:50 BP 115/47 L 10/04/18 08:52 Pulse Ox 94 L 10/04/18 08:50 I&O - Last 24 hours: Intake & Output 10/03/18 10/04/18 10/04/18 22:59 06:59 14:59 Intake Total 2400 1300 180 Output Total 2700 1700 Balance -300 -400 180 Lab Results - Last 24 hrs: Laboratory Results - last 24 hr 09/30/18 10/03/18 10/03/18 Range/Units 19:15 17:03 21:54 WBC (4.23-9.07) K/mm3 RBC (4.63-6.08) M/mm3 Hgb (13.7-17.5) gm/L Hct (40.1-51.0) % MCV (79.0-92.2) fl MCH (25.7-32.2) pg MCHC (32.2-35.5) g/dl RDW Std Deviation (35.1-43.9) fL Plt Count (163-337) K/mm3 MPV (9.4-12.3) fl Neut % (Auto) (34.0-67.9) % Lymph % (Auto) (21.8-53.1) % Mower % (Auto) (5.3-12.2) % Eos % (Auto) (0.8-7.0) Baso % (Auto) (0.1-1.2) % Neut # (Auto) (1.78-5.38) K/mm3 Lymph # (Auto) (1.32-3.57) K/mm3 Mower # (Auto) (0.30-0.82) K/mm3 Eos # (Auto) (0.04-0.54) K/mm3 Baso # (Auto) (0.01-0.08) K/mm3 Manual Slide Review Sodium (136-145) mEq/L Potassium (3.5-5.1) mEq/L Chloride (98-107) mEq/L Carbon Dioxide (21-32) mEq/L Anion Gap (5-15) BUN (7-18) mg/dL Creatinine (0.7-1.3) mg/dL Est Cr Clr Drug Dosing mL/min Estimated GFR (MDRD) (>60) mL/min BUN/Creatinine Ratio (14-18) Glucose (83-115) mg/dL POC Glucose 257 H 305 H (83-110) mg/dL Calcium (8.5-10.1) mg/dL Magnesium (1.8-2.4) mg/dl C-Reactive Protein (<1.0) mg/dL NT-Pro-B Natriuret Pep (0-450) pg/mL TB (QFT) Gold In Tube Negative 10/04/18 10/04/18 10/04/18 Range/Units 06:15 06:15 06:15 WBC 9.67 H (4.23-9.07) K/mm3 RBC 4.40 L (4.63-6.08) M/mm3 Hgb 12.7 L (13.7-17.5) gm/L Hct 39.2 L (40.1-51.0) % MCV 89.1 (79.0-92.2) fl MCH 28.9 (25.7-32.2) pg MCHC 32.4 (32.2-35.5) g/dl RDW Std Deviation 44.8 H (35.1-43.9) fL Plt Count 160 L (163-337) K/mm3 MPV 11.2 (9.4-12.3) fl Neut % (Auto) 83.1 H (34.0-67.9) % Lymph % (Auto) 8.7 L (21.8-53.1) % Mower % (Auto) 5.9 (5.3-12.2) % Eos % (Auto) 1.1 (0.8-7.0) Baso % (Auto) 0.1 (0.1-1.2) % Neut # (Auto) 8.03 H (1.78-5.38) K/mm3 Lymph # (Auto) 0.84 L (1.32-3.57) K/mm3 Mower # (Auto) 0.57 (0.30-0.82) K/mm3 Eos # (Auto) 0.11 (0.04-0.54) K/mm3 Baso # (Auto) 0.01 (0.01-0.08) K/mm3 Manual Slide Review Abnormal smear Sodium 136 (136-145) mEq/L Potassium 4.8 (3.5-5.1) mEq/L Chloride 96 L (98-107) mEq/L Carbon Dioxide 33 H (21-32) mEq/L Anion Gap 11.8 (5-15) BUN 41 H (7-18) mg/dL Creatinine 1.6 H (0.7-1.3) mg/dL Est Cr Clr Drug Dosing 45.48 mL/min Estimated GFR (MDRD) 42 (>60) mL/min BUN/Creatinine Ratio 25.6 H (14-18) Glucose 228 H (83-115) mg/dL POC Glucose (83-110) mg/dL Calcium 10.2 H (8.5-10.1) mg/dL Magnesium 2.2 (1.8-2.4) mg/dl C-Reactive Protein 2.4 H* (<1.0) mg/dL NT-Pro-B Natriuret Pep 268 (0-450) pg/mL TB (QFT) Gold In Tube 10/04/18 Range/Units 06:22 WBC (4.23-9.07) K/mm3 RBC (4.63-6.08) M/mm3 Hgb (13.7-17.5) gm/L Hct (40.1-51.0) % MCV (79.0-92.2) fl MCH (25.7-32.2) pg MCHC (32.2-35.5) g/dl RDW Std Deviation (35.1-43.9) fL Plt Count (163-337) K/mm3 MPV (9.4-12.3) fl Neut % (Auto) (34.0-67.9) % Lymph % (Auto) (21.8-53.1) % Mower % (Auto) (5.3-12.2) % Eos % (Auto) (0.8-7.0) Baso % (Auto) (0.1-1.2) % Neut # (Auto) (1.78-5.38) K/mm3 Lymph # (Auto) (1.32-3.57) K/mm3 Mower # (Auto) (0.30-0.82) K/mm3 Eos # (Auto) (0.04-0.54) K/mm3 Baso # (Auto) (0.01-0.08) K/mm3 Manual Slide Review Sodium (136-145) mEq/L Potassium (3.5-5.1) mEq/L Chloride (98-107) mEq/L Carbon Dioxide (21-32) mEq/L Anion Gap (5-15) BUN (7-18) mg/dL Creatinine (0.7-1.3) mg/dL Est Cr Clr Drug Dosing mL/min Estimated GFR (MDRD) (>60) mL/min BUN/Creatinine Ratio (14-18) Glucose (83-115) mg/dL POC Glucose 224 H (83-110) mg/dL Calcium (8.5-10.1) mg/dL Magnesium (1.8-2.4) mg/dl C-Reactive Protein (<1.0) mg/dL NT-Pro-B Natriuret Pep (0-450) pg/mL TB (QFT) Gold In Tube BEAR Results - Last 24 hrs: Microbiology 10/01/18 01:57 Streptococcus pneumoniae Antigen (M - Final Urine 09/30/18 16:15 Gram Stain - Final Sputum - Expectorated Sputum Culture - Final Pseudomonas Aeruginosa Med Orders - Current: Current Medications Acetaminophen (Tylenol) 975 mg PO BID PRN PRN Reason: Pain (mild 1-3) Hydrocodone Bitart/Acetaminophen ([place] 325-5 Mg) 1 tab PO Q4H PRN PRN Reason: Pain (moderate 4-6) Albuterol (Proventil Neb Soln) 2.5 mg NEB Q2H PRN PRN Reason: Shortness Of Breath/wheezing Albuterol/Ipratropium (Duoneb 3.0-0.5 Mg/3 Ml) 3 ml NEB Q4H PRN PRN Reason: Shortness Of Breath/wheezing Alprazolam (Xanax) 0.25 mg PO BID PRN PRN Reason: Anxiety Amlodipine Besylate (Norvasc) 10 mg PO BEDTIME [facility] Last Admin: 10/03/18 22:01 Dose: 10 mg Apixaban (Eliquis) 5 mg PO BID [facility] Last Admin: 10/04/18 08:50 Dose: 5 mg Artificial Tears (Refresh Liquigel 1%) 0 ml EYEBOTH QID [facility] Last Admin: 10/04/18 12:10 Dose: 1 drop Azithromycin (Zithromax) 250 mg PO Q24H [facility] Last Admin: 10/03/18 19:10 Dose: 250 mg Benzocaine/Menthol (Cepacol Sore Throat) 1 lozenge MUCMEM Q2HR PRN PRN Reason: Sore Throat Last Admin: 10/04/18 03:19 Dose: 1 lozenge Benzonatate (Tessalon Perles) 100 mg PO TID [facility] Last Admin: 10/04/18 08:46 Dose: 100 mg Bisacodyl (Dulcolax) 5 mg PO DAILY PRN PRN Reason: Constipation Budesonide (Pulmicort) 0.25 mg INH BIDRT [facility] Last Admin: 10/04/18 06:46 Dose: 0.25 mg Calcium Carbonate/Glycine (Tums) 1,000 mg PO BEDTIME [facility] Last Admin: 10/03/18 22:03 Dose: 1,000 mg Captopril (Capoten) 50 mg PO BIDAC [facility] Last Admin: 10/04/18 06:35 Dose: 50 mg Cephalexin (Keflex) 500 mg PO Q12H [facility] Last Admin: 10/04/18 08:48 Dose: 500 mg Cholecalciferol (Vitamin D3) 5,000 unit PO BEDTIME [facility] Last Admin: 10/03/18 22:04 Dose: 5,000 unit Clopidogrel Bisulfate (Plavix) 75 mg PO DAILY [facility] Last Admin: 10/04/18 08:47 Dose: 75 mg Dextrose/Water (Dextrose 50% In Water) 50 ml IVPUSH ASDIRECTED PRN PRN Reason: Hypoglycemia Docusate Sodium (Colace) 100 mg PO BID PRN PRN Reason: Constipation Ferrous Sulfate (Slow Release Iron) 160 mg PO DAILY [facility] Last Admin: 10/04/18 08:45 Dose: 160 mg Flunisolide (Nasalide Nasal [place]) 0 ml GISEL BID [facility] Last Admin: 10/04/18 08:53 Dose: 2 spray Furosemide (Lasix) 40 mg PO DAILY [facility] Last Admin: 10/04/18 08:46 Dose: 40 mg Gabapentin (Neurontin) 100 mg PO BID [facility] Last Admin: 10/04/18 08:50 Dose: 100 mg Gabapentin (Neurontin) 300 mg PO BID [facility] Last Admin: 10/04/18 08:50 Dose: 300 mg Glycopyrrolate (Seebri Neohaler) 0 mcg IH BID [facility] Last Admin: 10/04/18 11:56 Dose: Not Given Guaifenesin (Mucinex) 1,200 mg PO BID [facility] Last Admin: 10/04/18 08:48 Dose: 1,200 mg Hydralazine HCl (Apresoline) 10 mg IVPUSH Q4H PRN PRN Reason: Hypertension Last Admin: 10/03/18 01:38 Dose: 10 mg Hydrochlorothiazide (Hydrochlorothiazide) 12.5 mg PO BIDDIURETIC [facility] Last Admin: 10/04/18 06:36 Dose: 12.5 mg Hydromorphone HCl (Dilaudid) 0.25 mg IVPUSH Q2H PRN PRN Reason: Pain (severe 7-10) Promethazine HCl 6.25 mg/ (Sodium Chloride) 50.25 mls @ 100 mls/hr IV Q6H PRN PRN Reason: Nausea/Vomiting Insulin Glargine (Lantus) 48 unit SUBCUT BIDAC [facility] Last Admin: 10/04/18 06:37 Dose: 48 units Insulin Human Lispro (Humalog) 0 unit SUBCUT QIDACANDBED [facility]; Protocol Last Admin: 10/04/18 12:09 Dose: 12 units Isosorbide Mononitrate (Imdur) 120 mg PO DAILY [facility] Last Admin: 10/04/18 08:47 Dose: 120 mg Lamotrigine (Lamotrigine) 50 mg PO BEDTIME [facility] Last Admin: 10/03/18 21:58 Dose: 50 mg Levothyroxine Sodium (Synthroid) 50 mcg PO ACBREAKFAST [facility] Last Admin: 10/04/18 06:38 Dose: 50 mcg Lorazepam (Ativan) 2 mg IVPUSH Q4H PRN PRN Reason: Seizures Magnesium Hydroxide (Milk Of Magnesia) 30 ml PO Q12H PRN PRN Reason: Constipation Metoprolol Tartrate (Lopressor) 5 mg IVPUSH Q4H PRN PRN Reason: Tachycardia Metoprolol Tartrate (Lopressor) 50 mg PO BID [facility] Last Admin: 10/04/18 08:52 Dose: 50 mg Montelukast Sodium (Singulair) 10 mg PO BEDTIME [facility] Last Admin: 10/03/18 22:03 Dose: 10 mg Mupirocin (Bactroban Oint) 0 gm TOP BID [facility] Last Admin: 10/04/18 12:10 Dose: Not Given Naphazoline HCl/Zinc Sulfate (Clear Eyes Itchy Eye Rlf Drops) 0 ml EYEBOTH DAILY [facility] Last Admin: 10/04/18 08:51 Dose: 1 drop Nitroglycerin (Nitrostat) 0.4 mg SL ASDIRECTED PRN PRN Reason: Chest Pain Pantoprazole Sodium (Protonix) 40 mg PO DAILY@0700 [facility] Last Admin: 10/04/18 06:38 Dose: 40 mg Arformoterol 15 Mcg ((Brovana)) 0 each NEB BID [facility] Last Admin: 10/04/18 11:55 Dose: Not Given Phenol/Menthol (Chloraseptic Throat [place]) 0 ml MUCMEM Q2H PRN PRN Reason: SORE THROAT Last Admin: 10/04/18 08:53 Dose: 1 spray Polyethylene Glycol (Miralax) 17 gm PO DAILY PRN PRN Reason: Constipation Prednisone (Prednisone) 10 mg PO BID [facility] Last Admin: 10/04/18 08:48 Dose: 10 mg Promethazine HCl/Codeine (Phenergan With Codeine) 5 ml PO Q8H PRN PRN Reason: COUGH Ranolazine (Ranexa) 500 mg PO BID [facility] Last Admin: 10/04/18 08:46 Dose: 500 mg Rosuvastatin Calcium (Crestor) 20 mg PO DAILY [facility] Last Admin: 10/04/18 08:52 Dose: 20 mg Saccharomyces Boulardii (Florastor) 250 mg PO BID [facility] Last Admin: 10/04/18 08:46 Dose: 250 mg Senna/Docusate Sodium (Senna Plus) 1 tab PO BID PRN PRN Reason: Constipation Sodium Chloride (Saline Flush) 10 ml FLUSH ASDIRECTED PRN PRN Reason: Keep Vein Open Last Admin: 09/30/18 16:37 Dose: 10 ml Tamsulosin HCl (Flomax) 0.8 mg PO BEDTIME [facility] Last Admin: 10/03/18 21:57 Dose: 0.8 mg Triamcinolone Acetonide (Triamcinolone Acetonide 0.1% Crm) 0 gm TOP DAILY PRN PRN Reason: Rash Discontinued Medications Acetaminophen (Tylenol) 650 mg PO NOW ONE Stop: 09/30/18 14:30 Last Admin: 09/30/18 14:58 Dose: 650 mg Acetaminophen (Tylenol) 650 mg PO Q4H PRN PRN Reason: Pain (Mild 1-3)/fever Albuterol/Ipratropium (Duoneb 3.0-0.5 Mg/3 Ml) 3 ml NEB ONETIME ONE Stop: 09/30/18 16:09 Last Admin: 09/30/18 16:19 Dose: 3 ml Apixaban (Eliquis) 5 mg PO BIDRT [facility] Artificial Tears (Refresh Liquigel 1%) 0 ml EYEBOTH BEDTIME [facility] Ceftriaxone Sodium (Rocephin) 2 gm IVPUSH Q24H [facility] Last Admin: 09/30/18 20:49 Dose: Not Given Clonidine HCl (Catapres-Tts 3) 0.3 mg TRDERM Q7D ONE Stop: 10/03/18 07:32 Last Admin: 10/03/18 10:15 Dose: Not Given Famotidine (Pepcid) 20 mg PO BID [facility] Ferrous Sulfate (Ferrous Sulfate) 325 mg PO WITHBREAKFAST [facility] Gabapentin (Neurontin) 100 mg PO BID [facility] Last Admin: 10/01/18 02:00 Dose: Not Given Gabapentin (Neurontin) 300 mg PO BID [facility] Last Admin: 10/01/18 02:00 Dose: Not Given Hydralazine HCl (Apresoline) 10 mg PO ONETIME ONE Stop: 09/30/18 15:35 Last Admin: 09/30/18 15:58 Dose: 10 mg Ceftriaxone Sodium 1 gm/ (Sodium Chloride) 100 mls @ 200 mls/hr IV ONETIME ONE Stop: 09/30/18 16:38 Last Admin: 09/30/18 16:35 Dose: 200 mls/hr Azithromycin 500 mg/ Sodium (Chloride) 250 mls @ 250 mls/hr IV Q24H [facility] Last Admin: 10/01/18 21:02 Dose: 250 mls/hr Ceftriaxone Sodium 2 gm/ (Sodium Chloride) 100 mls @ 200 mls/hr IV Q24H [facility] Last Admin: 10/01/18 20:32 Dose: 200 mls/hr Ceftriaxone Sodium 1 gm/ (Sodium Chloride) 100 mls @ 200 mls/hr IV ONETIME ONE Stop: 09/30/18 19:59 Last Admin: 09/30/18 22:23 Dose: 200 mls/hr Insulin Glargine (Lantus) 45 unit SUBCUT BIDAC [facility] Last Admin: 10/02/18 06:38 Dose: 45 units Non-Formulary Medication (Dextran/Hypromellose/Glycerin [Genteal Tears 0.1%-0.2% -0.3%]) 1 drop EYEBOTH BEDTIME [facility] Last Admin: 10/01/18 01:29 Dose: Not Given Arformoterol 15 Mcg ((Brovana)) 0 each NEB BID [facility] Last Admin: 10/01/18 07:12 Dose: Not Given Prednisone (Prednisone) 20 mg PO BID [facility] Last Admin: 10/02/18 08:57 Dose: 20 mg - Exam Quality Assessment: Reports: Supplemental Oxygen General: Reports: Alert, Oriented, Cooperative, No Acute Distress HEENT: Reports: Pupils Equal, Pupils Reactive, EOMI Neck: Reports: Trachea Midline, No JVD Lungs: Reports: Normal Respiratory Effort, Rhonchi Cardiovascular: Reports: Regular Rate, Regular Rhythm GI/Abdominal Exam: Normal Bowel Sounds, Soft, Non-Tender, No Organomegaly, No Distention (Male) Exam: Deferred Rectal (Males) Exam: Deferred Back Exam: Reports: Normal Inspection Extremities: Normal Inspection, Non-Tender, Normal Capillary Refill Skin: Reports: Warm, Dry Neurological: Reports: No New Focal Deficit, Normal Speech Psy/Mental Status: Reports: Alert, Normal Affect, Normal Mood
[2018-10-03] MEDS: Tamsulosin 0.4 MG Cap.ER PO SCH (21:57)
[2018-10-03] MEDS: lamoTRIgine 100 MG Tab PO SCH (21:58)
[2018-10-03] MEDS: amLODIPine 10 MG Tab PO SCH (22:01)
[2018-10-03] MEDS: Calcium Carbonate 500 MG Tab.Chew PO SCH (22:03)
[2018-10-03] MEDS: Montelukast 10 MG Tab PO SCH (22:03)
[2018-10-03] MEDS: Cholecalciferol (Vitamin D3) 5,000 UNIT Tab PO SCH (22:04)
[2018-10-04] MEDS: Glycopyrrolate 15.6 MCG Cap.W.Dev Kit of 6 IH SCH ×2 (00:59→11:56)
[2018-10-04] MEDS: Benzocaine/Cetylpyridinium/Menthol Lozenge MUCMEM PRN (03:19)
[2018-10-04] MEDS: Hydrochlorothiazide 12.5 MG Cap PO SCH (06:36)
[2018-10-04] MEDS: Insulin Glarg,Human.Rec.Analog 100 UNIT/ML ML SUBCUT SCH (06:37)
[2018-10-04] MEDS: Levothyroxine 50 MCG Tab PO SCH (06:38)
[2018-10-04] MEDS: Pantoprazole 40 MG Tab.CR PO SCH (06:38)
[2018-10-04] MEDS: Budesonide 0.25 MG/2 ML Neb Susp INH SCH (06:46)
[2018-10-04] MEDS: Insulin Lispro 100 UNIT/ML 10 ML VIAL SUBCUT SCH ×2 (08:43→12:09)
[2018-10-04] MEDS: Ferrous Sulfate 160 MG TAB.ER PO SCH (08:45)
[2018-10-04] MEDS: Furosemide 40 MG Tab PO SCH (08:46)
[2018-10-04] MEDS: Benzonatate 100 MG Cap PO SCH (08:46)
[2018-10-04] MEDS: Saccharomyces Boulardii (Probiotic) 250 MG Cap PO SCH (08:46)
[2018-10-04] MEDS: Clopidogrel 75 MG Tab PO SCH (08:47)
[2018-10-04] MEDS: Isosorbide Mononitrate 60 MG Tab.ER PO SCH (08:47)
[2018-10-04] MEDS: guaiFENesin 600 MG Tab.ER PO SCH (08:48)
[2018-10-04] MEDS: Cephalexin 500 MG Cap PO SCH (08:48)
[2018-10-04] MEDS: predniSONE 10 MG Tab PO SCH (08:48)
[2018-10-04] MEDS: Gabapentin 300 MG Cap PO SCH (08:50)
[2018-10-04] MEDS: Apixaban 5 MG Tab PO SCH (08:50)
[2018-10-04] MEDS: Gabapentin 100 MG Cap PO SCH (08:50)
[2018-10-04] MEDS: Carboxymethylcellulose Sodium 1% Ophth Gel 15 ML Bottle EYEBOTH SCH ×2 (08:51→12:10)
[2018-10-04] MEDS: Naphazoline 0.12%/Zinc Sulfate/Glycerin Ophth Soln 15 ML Bottle EYEBOTH SCH (08:51)
[2018-10-04] MEDS: Metoprolol Tartrate 50 MG Tab PO SCH (08:52)
[2018-10-04] MEDS: Rosuvastatin 10 MG Tab PO SCH (08:52)
[2018-10-04 08:53] VITALS: BP 115/47
[2018-10-04] MEDS: Phenol 1.4% Oral Spray 177 ML Bottle MUCMEM PRN (08:53)
[2018-10-04] MEDS: ARFORMOTEROL 15 MCG NEB SCH (11:55)
[2018-10-04] MEDS: Mupirocin Oint 22 GM Tube TOP SCH (12:10)
== END 2018-10-04 13:26 | disposition home or self-care (01) | DRG 194 ==
LOC: JD.ED 13:59 → JD.MS 17:19
PROVIDERS: ADMIT Internal Medicine; ATTEND Internal Medicine
DX: J18.1 Lobar pneumonia, unspecified organism (principal); I13.0 Hypertensive heart and chronic kidney disease with heart failure and stage 1 through stage 4 chronic kidney disease, or unspecified chronic kidney disease; I10 Essential (primary) hypertension; J43.9 Emphysema, unspecified; J44.0 Chronic obstructive pulmonary disease with (acute) lower respiratory infection; R04.2 Hemoptysis; E78.00 Pure hypercholesterolemia, unspecified; K21.9 Gastro-esophageal reflux disease without esophagitis; E11.9 Type 2 diabetes mellitus without complications; G89.29 Other chronic pain; M54.9 Dorsalgia, unspecified; M19.90 Unspecified osteoarthritis, unspecified site; L82.1 Other seborrheic keratosis; H54.7 Unspecified visual loss; E78.5 Hyperlipidemia, unspecified; E11.22 Type 2 diabetes mellitus with diabetic chronic kidney disease; I50.9 Heart failure, unspecified; R42 Dizziness and giddiness; R41.0 Disorientation, unspecified; N18.3 Chronic kidney disease, stage 3 (moderate); E11.65 Type 2 diabetes mellitus with hyperglycemia; G43.909 Migraine, unspecified, not intractable, without status migrainosus; R50.9 Fever, unspecified; R06.02 Shortness of breath; R05 Cough; M79.10 Myalgia, unspecified site; R51 Headache; R60.0 Localized edema; E03.9 Hypothyroidism, unspecified; N40.0 Benign prostatic hyperplasia without lower urinary tract symptoms; E66.9 Obesity, unspecified; I25.2 Old myocardial infarction; Z86.73 Personal history of transient ischemic attack (TIA), and cerebral infarction without residual deficits; Z88.6 Allergy status to analgesic agent; Z88.8 Allergy status to other drugs, medicaments and biological substances; Z79.899 Other long term (current) drug therapy; Z95.5 Presence of coronary angioplasty implant and graft; Z79.01 Long term (current) use of anticoagulants; Z79.02 Long term (current) use of antithrombotics/antiplatelets; Z79.4 Long term (current) use of insulin; Z79.52 Long term (current) use of systemic steroids; Z87.891 Personal history of nicotine dependence; Z99.81 Dependence on supplemental oxygen
CPT/HCPCS: 36415; 71046; 80053; 82962; 85007; 85027; 86140; 86738; 87070; 87077; 87186; 87205; 87556; 87804 ×2; 94640; 96365; 99285; A9270 ×2; J0696; J7030; 71045; 71045-26; 80048; 80061; 82306; 82947; 83036; 83540; 83735; 83880; 85025; 86480; 87486; 87581; 87632; 87798; 87899; 92523-GN; 93306; 94667; 94668; 94760; 94761; 97110-GO; 97110-GP; 97116-GP; 97162-GP; 97165-GO; 97530-GO; 97530-GP; 97535-GO; J0360; J0456; J7050; J7620-GY

== ENCOUNTER 2018-10-05 19:06 | Observation (INO) | payer MEDICARE, MEDICAID ==
--- NOTE | 2018-10-05 19:23 | EDM.PDOC ---
ED HPI GENERAL MEDICAL PROBLEM - General Chief Complaint: Neurological Problem Stated Complaint: [facility] Time Seen by Provider: 10/05/18 19:21 Source of Information: Reports: Patient History Limitations: Reports: No Limitations - History of Present Illness INITIAL COMMENTS - FREE TEXT/NARRATIVE: 78-year-old male presents to the ED with chief complaint of dizziness and weakness. Patient states he felt good all day. He did clean his apartment to some degree. He invited a couple friends over for pizza for supper. 12 the patient was being cooked he started to feel a pressure pain discomfort the left side of his neck which was quite intense. This was associated with development of jennifer dizziness and lightheadedness and he had to go and sit down. Even in the easy chair he continued to have dizziness and felt acute is going to faint. Wasn't aware of any palpitations. Patient is known to have severe coronary disease and is on multiple medications including Imdur aspirin, Plavix and Eliquis. Initial blood pressure was 77/52. Heart rate is in the 60s but is on numerous medications to prevent tachycardia. Color is pallid. He states he had a normal bowel movement this morning with no blood evident. Denies any abdominal pain or nausea at this time Onset: Today Onset Date: 10/05/18 Onset Time: 18:00 Duration: Minutes: Location: Reports: Neck (Severe pain left side of his neck which is now somewhat better.), Generalized (Feels very lightheaded dizzy and presents hypotensive with BP of 77/52). Denies: Chest, Abdomen, Back, Pelvis Quality: Reports: Other Severity: Severe (Dizzy and lightheaded) Improves with: Reports: Other (Worsens with standing and better with lying) Worsens with: Reports: Other, Movement Context: Denies: Activity (Standing up), Exercise, Lifting, Sick Contact, Trauma , Other Associated Symptoms: Reports: Cough, Malaise, Weakness. Denies: No Other Symptoms, Confusion, Chest Pain (Chronic cough just got out of hospital being treated for bronchitis with COPD exacerbation. Because of hemoptysis TB was recently ruled out.), cough w sputum, Diaphoresis, Fever/Chills, Headaches, Loss of Appetite, Nausea/Vomiting, Rash, Seizure, Shortness of Breath, Syncope Treatments SERVICE LIAISON REPRESENTATIVE: Reports: Other (see below) (Only his usual medications.) Neck Pain Score (Numeric/FACES): 10 - Related Data Allergies Allergy/AdvReac Type Severity Reaction Status Date / Time glipizide [From Glucotrol] Allergy Other Verified 10/05/18 19:09 ibuprofen Allergy Other Verified 10/05/18 19:09 metformin Allergy Other Verified 10/05/18 19:09 pioglitazone [From Actos] Allergy Other Verified 10/05/18 19:09 codeine AdvReac Nausea and Verified 10/05/18 19:09 Vomiting fish oil AdvReac Nausea and Verified 10/05/18 19:09 Vomiting Home Meds: Home Meds Clopidogrel [Plavix] 75 mg PO DAILY 03/05/14 [History] Isosorbide Mononitrate [Imdur] 120 mg PO DAILY 03/05/14 [History] Nitroglycerin [Nitrostat] 0.4 mg SL ASDIRECTED PRN 03/05/14 [History] Polyethylene Glycol 1000 [Polyethylene Glycol] 1 scoop PO ASDIRECTED 03/05/14 [ History] Acetaminophen [Acetaminophen Extra Strength] 1,000 mg PO BID PRN 10/15/14 [ History] Insulin Aspart [Novolog Flexpen] 17 unit SQ ASDIRECTED 10/15/14 [History] Ranolazine [Ranexa] 500 mg PO BID 12/28/14 [History] Fluticasone Propionate [Flonase] 2 spray NS DAILY 03/30/16 [History] Pantoprazole [ProTONIX] 40 mg PO DAILY 03/30/16 [History] Budesonide [Pulmicort] 0.25 mg INH BID 06/30/16 [History] Furosemide [Lasix] 40 mg PO DAILY 06/30/16 [History] Levothyroxine Sodium [Synthroid] 50 mcg PO DAILY 06/30/16 [History] Montelukast [Singulair] 10 mg PO BEDTIME 06/30/16 [History] Ondansetron [Zofran ODT] 4 mg PO TID PRN 06/30/16 [History] Rosuvastatin [Crestor] 20 mg PO DAILY 06/30/16 [History] Tamsulosin [Flomax] 0.8 mg PO BEDTIME 06/30/16 [History] Captopril 50 mg PO BIDAC 06/17/17 [History] Gabapentin [Neurontin] 300 mg PO BID 06/17/17 [History] Umeclidinium Lillian [Incruse Ellipta*] 62.5 mcg IH DAILY 06/17/17 [History] Apixaban [Eliquis] 5 mg PO BID 08/28/17 [History] Insulin Glargine,Hum.Rec.Anlog [Basaglar Kwikpen U-100] 45 units SQ BID [History] Triamcinolone Acetonide [Triamcinolone Acetonide 0.1% Crm] 1 applic TOP DAILY PRN 08/29/17 [History] Metoprolol Tartrate [Lopressor] 50 mg PO BID #60 tablet 09/01/17 [Rx] Arformoterol [Brovana] 15 mcg NEB BID 01/27/18 [History] Gabapentin [Neurontin] 100 mg PO BID 01/27/18 [History] Mupirocin Calcium [Mupirocin] 1 applic TOP BID 01/27/18 [History] ALPRAZolam [Xanax] 0.25 mg PO BID PRN 09/30/18 [History] Albuterol [Ventolin HFA] 2 puff INH QID PRN 09/30/18 [History] Azithromycin [Zithromax] 250 mg PO DAILY 09/30/18 [History] Benzonatate 100 mg PO TID 09/30/18 [History] Dextran/Hypromellose/Glycerin [Genteal Tears 0.1%-0.2%-0.3%] 1 drop EYEBOTH BEDTIME 09/30/18 [History] Insulin Aspart [NovoLOG] 24 units SUBCUT ASDIRECTED 09/30/18 [History] Ofloxacin [Ocuflox 0.3% Ophth Soln] 5 drop EARBOTH BID 09/30/18 [History] Phenol [Chloraseptic] 1 spray PO Q2HR PRN 09/30/18 [History] Promethazine HCl/Codeine [Prometh-Codein 6.25-10 mg/5 ml] 10 ml PO Q8HR PRN 01/11 [History] lamoTRIgine [Lamotrigine] 50 mg PO BEDTIME 09/30/18 [History] Benzonatate 200 mg PO TID PRN 10/01/18 [History] Calcium Carb/Magnesium Hydrox [Antacid Chewable Tablet] 1,000 mg PO QID PRN 02/11 [History] Carboxymethylcellulose Sodium [Refresh Tears 0.5%] 1 drop EYEBOTH QID 10/01/18 [ History] Cyanocobalamin (Vitamin B-12) [Cyanocobalamin Injection] 1,000 mcg SUBCUT ASDIRECTED 10/01/18 [History] Naphazoline HCl/Pheniramine [Opcon-A Eye Drops] 1 drop EYEBOTH DAILY 10/01/18 [ History] Cholecalciferol (Vitamin D3) [Vitamin D3] 5,000 unit PO BEDTIME 10 Days #10 tablet 10/03/18 [Rx] Ferrous Sulfate [Slow Release Iron] 160 mg PO DAILY 10 Days #10 tab.er 10/03/18 [Rx] Saccharomyces Boulardii [Florastor] 250 mg PO BID #40 cap 10/03/18 [Rx] amLODIPine Besylate [Norvasc] 10 mg PO BEDTIME #10 tablet 10/03/18 [Rx] cephALEXin [Keflex] 500 mg PO Q12H 6 Days #6 cap 10/03/18 [Rx] predniSONE 10 mg PO BID 10 Days #20 tablet 10/03/18 [Rx] Past Medical History HEENT History: Reports: Impaired Vision Other HEENT History: wears glasses Cardiovascular History: Reports: High Cholesterol, Hypertension, [place] Respiratory History: Reports: COPD, SOB, Other (See Below) Other Respiratory History: emphasema Gastrointestinal History: Reports: GERD Genitourinary History: Reports: None Musculoskeletal History: Reports: Back Pain, Chronic, Osteoarthritis Neurological History: Reports: Headaches, Chronic Other Neuro History: Stroke in 1971 Endocrine/Metabolic History: Reports: Diabetes, Type II Hematologic History: Reports: None Other Hematologic History: hypomagnesemia Oncologic (Cancer) History: Reports: None Dermatologic History: Reports: None Other Dermatologic History: seborrheic keratosis - Infectious Disease History Infectious Disease History: Reports: Influenza, Measles - Past Surgical History Head Surgeries/Procedures: Reports: None Cardiovascular Surgical History: Reports: Coronary Artery Stent GI Surgical History: Reports: Colonoscopy Social & Family History - Family History Family Medical History: Noncontributory - Caffeine Use Caffeine Use: Reports: Coffee, Tea Other Caffeine Use: states he has one every once in awhile when he feels like it. - Living Situation & Occupation Living situation: Reports: Single Occupation: Retired ED ROS GENERAL - Review of Systems Review Of Systems: See Below Constitutional: Reports: Malaise, Weakness, Fatigue (Chronically). Denies: Fever, Chills HEENT: Reports: Glasses Respiratory: Reports: Shortness of Breath, Cough. Denies: Wheezing, Pleuritic Chest Pain, Sputum, Hemoptysis (States his cough is very mild at this time. Minimal sputum production certainly no more hemoptysis) Cardiovascular: Reports: Blood Pressure Problem, Dyspnea on Exertion (Usually runs a bit on the low side), Lightheadedness. Denies: Chest Pain, Claudication , Edema, Orthopnea, Palpitations (Especially today.) Endocrine: Reports: Fatigue GI/Abdominal: Reports: No Symptoms : Reports: Frequency Musculoskeletal: Reports: Back Pain, Joint Pain (Knees hips and neck at this time) Skin: Reports: Bruising (Bruises very easily.) Neurological: Reports: Dizziness. Denies: Confusion, Headache, Numbness, Paresthesia, Pre-Existing Deficit, Seizure, Syncope, Tingling, Tremors, Trouble Speaking, Difficulty Walking, Weakness Psychiatric: Reports: No Symptoms Hematologic/Lymphatic: Reports: No Symptoms Immunologic: Reports: No Symptoms ED EXAM, NEURO - Physical Exam Exam: See Below Exam Limited By: No Limitations General Appearance: Alert, WD/WN, Other (Alert and able to answer all questions. He is quite pallid in color.) Eye Exam: Bilateral Eye: Normal Inspection (Mild blood for pallor bilaterally.) Throat/Mouth: Normal Inspection, Normal Lips, Normal Oropharynx Head Exam: Atraumatic, Normocephalic Neck: Normal Inspection, Supple, Non-Tender, Full Range of Motion. No: Lymphadenopathy (L), Lymphadenopathy (R) Respiratory/Chest: No Respiratory Distress, Respiratory Distress, Decreased Breath Sounds (Decreased breath sounds to the lower 20% of lung miranda bilaterally.). No: Rales, Rhonchi, Wheezing Cardiovascular: Regular Rate, Rhythm, No Edema, No Gallop, No Murmur, No Rub. No: Normal Peripheral Pulses GI/Abdominal: No Organomegaly, No Mass, Other (The abdomen is slightly distended and tympanitic to percussion. Firm to palpation. Slightly distended compose some degree of aerophagia. No organomegaly or masses noted no tenderness elicited.). No: Tender (Male) Exam: Other Neurological: Alert, Normal Mood/Affect (Normal appearance. Good femoral pulses bilaterally.), Normal Dorsiflexion DTR: 4+: Achilles (L) Back Exam: Normal Inspection, Decreased Range of Motion, Other. No: CVA Tenderness (L), CVA Tenderness (R) Extremities: Normal Inspection, Normal Range of Motion, Non-Tender, No Pedal Edema Psychiatric: Normal Affect, Normal Mood Skin Exam: Warm, Dry, Intact, Pallor (Mild pallor) EKG INTERPRETATION EKG Date: 10/05/18 Time: 19:30 Rhythm: NSR Rate (Beats/Min): 66 [place]: Normal P-Wave: Enlarged (Right atrial hypertrophy pattern) QRS: Other (Q waves V1 to V2 compatible with old anteroseptal myocardial infarction.) ST-T: Depressed (There is mild ST segment depression in leads 1 and aVL with T- wave inversion cannot rule out ischemia in the lateral wall) QT: Prolonged EKG Interpretation Comments: Abnormal ECG Course - Vital Signs Last Recorded V/S: Last Vital Signs Temp 35.9 C 10/05/18 19:10 Pulse 70 10/05/18 19:10 Resp 10 L 10/05/18 19:10 BP 88/55 L 10/05/18 19:10 Pulse Ox 96 10/05/18 19:10 - Orders/Labs/Meds Orders: Active Orders 24 hr Category Date Time Status Blood Glucose Check, Bedside [RC] ONETIME Care 10/05/18 19:22 Active EKG Documentation Completion [RC] STAT Care 10/05/18 19:22 Active Oxygen Therapy [RC] ASDIRECTED Care 10/05/18 19:22 Active Chest 1V Frontal [CR] Stat Exams 10/05/18 20:35 Taken CULTURE BLOOD [BC] Stat Lab 10/05/18 19:50 Received CULTURE BLOOD [BC] Stat Lab 10/05/18 20:05 Received TYPE AND SCREEN [BBK] Stat Lab 10/05/18 19:40 Received Sodium Chloride 0.9% [Normal Saline] 1,000 ml Med 10/05/18 19:30 Active IV ASDIRECTED Sodium Chloride 0.9% [Normal Saline] 1,000 ml Med 10/05/18 20:00 Active IV ASDIRECTED Blood Culture x2 Reflex Set [OM.PC] Stat Oth 10/05/18 19:22 Ordered Medication Orders Sodium Chloride (Normal Saline) 1,000 mls @ 999 mls/hr IV ASDIRECTED GUANAKO Last Admin: 10/05/18 20:22 Dose: 999 mls/hr Sodium Chloride (Normal Saline) 1,000 mls @ 999 mls/hr IV ASDIRECTED GUANAKO Last Admin: 10/05/18 20:22 Dose: 999 mls/hr Labs: Laboratory Tests 10/05/18 10/05/18 10/05/18 Range/Units 19:40 19:40 19:40 WBC 13.95 H (4.23-9.07) K/mm3 RBC 4.07 L (4.63-6.08) M/mm3 Hgb 11.7 L (13.7-17.5) gm/L Hct 37.5 L (40.1-51.0) % MCV 92.1 (79.0-92.2) fl MCH 28.7 (25.7-32.2) pg MCHC 31.2 L (32.2-35.5) g/dl RDW Std Deviation 46.6 H (35.1-43.9) fL Plt Count 211 (163-337) K/mm3 MPV 10.9 (9.4-12.3) fl Neutrophils % (Manual) 79 H (40-60) % Band Neutrophils % 0 (0-10) % Lymphocytes % (Manual) 13 L (20-40) % Atypical Lymphs % 0 % Monocytes % (Manual) 5 (2-10) % Eosinophils % (Manual) 1 (0.8-7.0) % Basophils % (Manual) 1 (0.2-1.2) Myelocytes % 1 Platelet Estimate Adequate Plt Morphology Comment Normal RBC Morph Comment Normal PT 10.9 (9.5-12.1) SECONDS INR 1.00 APTT 27 (24-31) SECONDS Sodium 141 (136-145) mEq/L Potassium 4.4 (3.5-5.1) mEq/L Chloride 102 (98-107) mEq/L Carbon Dioxide 33 H (21-32) mEq/L Anion Gap 10.4 (5-15) BUN 51 H (7-18) mg/dL Creatinine 2.4 H (0.7-1.3) mg/dL Est Cr Clr Drug Dosing 25.37 mL/min Estimated GFR (MDRD) 26 (>60) mL/min BUN/Creatinine Ratio 21.3 H (14-18) Glucose 171 H (83-115) mg/dL POC Glucose (83-110) mg/dL Lactic Acid (0.4-2.0) mmol/L Calcium 9.1 (8.5-10.1) mg/dL Magnesium 2.2 (1.8-2.4) mg/dl Total Bilirubin 0.4 (0.2-1.0) mg/dL AST 16 (15-37) U/L ALT 30 (16-63) U/L Alkaline Phosphatase 71 (46-116) U/L CK-MB (CK-2) 6.4 H (0-3.6) ng/ml Troponin I 0.026 (0.00-0.056) ng/mL C-Reactive Protein 0.7 (<1.0) mg/dL NT-Pro-B Natriuret Pep (0-450) pg/mL Total Protein 6.5 (6.4-8.2) g/dl Albumin 3.1 L (3.4-5.0) g/dl Globulin 3.4 gm/dL Albumin/Globulin Ratio 0.9 L (1-2) 10/05/18 10/05/18 10/05/18 Range/Units 19:40 19:40 20:31 WBC (4.23-9.07) K/mm3 RBC (4.63-6.08) M/mm3 Hgb (13.7-17.5) gm/L Hct (40.1-51.0) % MCV (79.0-92.2) fl MCH (25.7-32.2) pg MCHC (32.2-35.5) g/dl RDW Std Deviation (35.1-43.9) fL Plt Count (163-337) K/mm3 MPV (9.4-12.3) fl Neutrophils % (Manual) (40-60) % Band Neutrophils % (0-10) % Lymphocytes % (Manual) (20-40) % Atypical Lymphs % % Monocytes % (Manual) (2-10) % Eosinophils % (Manual) (0.8-7.0) % Basophils % (Manual) (0.2-1.2) Myelocytes % Platelet Estimate Plt Morphology Comment RBC Morph Comment PT (9.5-12.1) SECONDS INR APTT (24-31) SECONDS Sodium (136-145) mEq/L Potassium (3.5-5.1) mEq/L Chloride (98-107) mEq/L Carbon Dioxide (21-32) mEq/L Anion Gap (5-15) BUN (7-18) mg/dL Creatinine (0.7-1.3) mg/dL Est Cr Clr Drug Dosing mL/min Estimated GFR (MDRD) (>60) mL/min BUN/Creatinine Ratio (14-18) Glucose (83-115) mg/dL POC Glucose 166 H (83-110) mg/dL Lactic Acid 1.5 (0.4-2.0) mmol/L Calcium (8.5-10.1) mg/dL Magnesium (1.8-2.4) mg/dl Total Bilirubin (0.2-1.0) mg/dL AST (15-37) U/L ALT (16-63) U/L Alkaline Phosphatase (46-116) U/L CK-MB (CK-2) (0-3.6) ng/ml Troponin I (0.00-0.056) ng/mL C-Reactive Protein (<1.0) mg/dL NT-Pro-B Natriuret Pep 728 H (0-450) pg/mL Total Protein (6.4-8.2) g/dl Albumin (3.4-5.0) g/dl Globulin gm/dL Albumin/Globulin Ratio (1-2) Meds: Medications Generic Name Dose Route Start Last Admin Trade Name Freq PRN Reason Stop Dose Admin Sodium Chloride 1,000 mls @ 999 mls/hr 10/05/18 19:30 10/05/18 20:22 Normal Saline IV 999 mls/hr ASDIRECTED GUANAKO Administration Sodium Chloride 1,000 mls @ 999 mls/hr 10/05/18 20:00 10/05/18 20:22 Normal Saline IV 999 mls/hr ASDIRECTED GUANAKO Administration Discontinued Medications Generic Name Dose Route Start Last Admin Trade Name Freq PRN Reason Stop Dose Admin Norepinephrine Bitartrate 4 mg 250 mls @ 15 mls/hr 10/05/18 20:15 / Dextrose/Water IV TITRATE GUANAKO Protocol 4 MCG/MIN Ondansetron HCl 4 mg 02/10/19 20:05 10/05/18 20:22 Zofran IVPUSH 10/05/18 20:06 4 mg ONETIME ONE Administration - Radiology Interpretation Free Text/Narrative:: 78-year-old male with multiple comorbidities particularly bad coronary disease and COPD lung disease. Presents to the ED with acute onset of dizziness lightheadedness and associated left-sided neck pain. Patient is feeling dizzy even at rest. BP upon initial assessment was 88/22 but quickly fell to 77/52 and dropped further to 69/48. Second IV will be started with normal saline at open. Any further fall in blood pressure will require pressor agent. - Re-Assessments/Exams Free Text/Narrative Re-Assessment/Exam: 10/05/18 20:13 after second IV was commenced his blood pressure is responding to crystalloid with BP up to 111/52. He maintains in sinus rhythm at 67/m. initial hemoglobin is reported out at 11.7. His hypotension may be related to medications versus cardiac. I was going to place him on a levo fed drip but since his blood pressures, by canceled this at this time. Since he has 2 IVs of normal saline at this time ,both will be run at 500 mils an hour 10/05/18 20:51 BP is currently 103 on 47. He is currently receiving IV fluids at 500 mils per hour in both arms for a total of 1 L per hour. 10/05/18 20:53 Labs reveal an elevated white count at 13.95 with 79% neutrophils and no band cells. Hemoglobin is 11.7 with hematocrit of 37.5. Reticulocyte count is normal at 211,000. PT is 10.9 with an INR 1.00. PTT is 27. Sodium is 141 with potassium of 4.4. Chloride 102 with a bicarbonate of 33 i.e. CO2 retainer. Anion gap is 10.4. BUN is 51. Creatinine is 2.4. GFR is down to 26 i.e. stage IV chronic kidney disease. Glucose is 171. Lactic acid 1.5. Calcium 9.1. Magnesium is 2.2. Liver function is normal. CK-MB is elevated at 6.4 troponin is normal at 0.026. C-reactive protein is 0.7 BNP is 7-8. Total protein is 6.5 albumin fraction is 3.1. 10/05/18 20:59 he is feeling much better with no further neck pain. Blood pressure stabilized at 111/59. He has had a full liter of IV fluid prescription given. He is in mild congestive failure with a BNP of 728. Current BP is 111/ 59. Do not have any reason for him to develop such significant hypotension. He did take his usual medications before eating pizza for supper. He can't tell whether one of those could've been Imdur other medicines that may have abruptly lowered his blood pressure. He has no chest pain or neck pain at this time 10/05/18 21:06 chest x-ray reveals mildly hyperinflated lung miranda. Moderate cardiomegaly. Mild diffuse vascular congestion pattern. Prominent right pulmonary artery. Stress case with post acute care nurse practitioner hospitalist Dr. Aguilar and decision made to admit the patient to the hospital per observation status since we cannot explain why he became so hypotensive. He did take all of his medications before he ate pizza. It's questionable whether his pressure would've dropped in response to medications apparently none of them are really changed since his last hospitalization.. He went home on doxycycline and Zithromax and 6 days of cephalexin. This was for pneumonia Departure - Departure Time of Disposition: 21:09 Disposition: Refer to Observation Condition: Fair Clinical Impression: Congestive heart failure, Chronic renal insufficiency, stage IV (severe) Hypotension Qualifiers: Hypotension type: unspecified hypotension type Qualified Code(s): I95.9 - Hypotension, unspecified - Discharge Information *PRESCRIPTION DRUG MONITORING PROGRAM REVIEWED*: Not Applicable *COPY OF PRESCRIPTION DRUG MONITORING REPORT IN PATIENT FIOR: Not Applicable Referrals: Saleem Guillermo Jr, MD [Primary Care Provider] - Forms: ED Department Discharge Additional Instructions: Patient will be admitted to the med surgery floor on telemetry per observation status due to bout of unexplained prolonged hypotension requiring IV fluid resuscitation with crystalloid stool which she responded. He has a history of congestive heart failure which will be aggravated by the fluid boluses that we gave him. However his blood pressure seems to have stabilized at 104/65. He normally is rather hypertensive previous blood pressure readings in the 160s systolically. Certain is therefore for a occult GI bleed which will manifest over the next 6-12 hours if it is present. Requires repeat cardiac enzymes to rule out cardiac related illness. - My Orders Last 24 Hours: My Active Orders 10/05/18 19:22 Blood Glucose Check, Bedside [RC] ONETIME EKG Documentation Completion [RC] STAT Oxygen Therapy [RC] ASDIRECTED Blood Culture x2 Reflex Set [OM.PC] Stat 10/05/18 19:30 Sodium Chloride 0.9% [Normal Saline] 1,000 ml IV ASDIRECTED 10/05/18 19:40 TYPE AND SCREEN [BBK] Stat 10/05/18 19:50 CULTURE BLOOD [BC] Stat 10/05/18 20:00 Sodium Chloride 0.9% [Normal Saline] 1,000 ml IV ASDIRECTED 10/05/18 20:05 CULTURE BLOOD [BC] Stat 10/05/18 20:35 Chest 1V Frontal [CR] Stat - Assessment/Plan Last 24 Hours: My Active Orders 10/05/18 19:22 Blood Glucose Check, Bedside [RC] ONETIME EKG Documentation Completion [RC] STAT Oxygen Therapy [RC] ASDIRECTED Blood Culture x2 Reflex Set [OM.PC] Stat 10/05/18 19:30 Sodium Chloride 0.9% [Normal Saline] 1,000 ml IV ASDIRECTED 10/05/18 19:40 TYPE AND SCREEN [BBK] Stat 10/05/18 19:50 CULTURE BLOOD [BC] Stat 10/05/18 20:00 Sodium Chloride 0.9% [Normal Saline] 1,000 ml IV ASDIRECTED 10/05/18 20:05 CULTURE BLOOD [BC] Stat 10/05/18 20:35 Chest 1V Frontal [CR] Stat
[2018-10-05] MEDS ORDERED: Sodium Chloride 0.9% 1,000 ML IV SCH ×3 (19:30→22:45)
[2018-10-05] MEDS ORDERED: Ondansetron 4 MG/2 ML SDV IVPUSH ONE (20:05)
[2018-10-05] MEDS ORDERED: Norepinephrine 4 MG in Dextrose 5% in Water 246 ML IV SCH ×2 (20:15)
[2018-10-05] MEDS ORDERED: ALPRAZolam 0.25 MG Tab PO PRN (22:46)
[2018-10-05] MEDS ORDERED: Albuterol 6.7 GM Inhaler INH PRN (22:50)
[2018-10-06] MEDS: Apixaban 5 MG Tab PO SCH ×2 (00:43→11:01)
[2018-10-06] MEDS: predniSONE 10 MG Tab PO SCH ×2 (00:44→11:01)
[2018-10-06] MEDS: Gabapentin 300 MG Cap PO SCH ×2 (00:44→11:02)
[2018-10-06] MEDS: Cephalexin 500 MG Cap PO SCH ×2 (00:44→11:02)
[2018-10-06] MEDS: Saccharomyces Boulardii (Probiotic) 250 MG Cap PO SCH ×2 (01:43→11:02)
--- NOTE | 2018-10-06 06:52 | CR ---
Chest: Portable view of the chest was obtained. Comparison: Prior chest x-ray of 10/02/18 Slight scarring is noted within the left base. Buckner density is noted within the right lung base. Lungs otherwise are clear. Heart size is normal. Tortuous thoracic aorta is seen. Bony structures are grossly intact. Impression: 1. Buckner density within the right lung base. Uncertain if this is due to scarring or other abnormality. Noncontrast chest CT recommended to further evaluate. This can be performed non-emergently. 2. Slight scarring within the left base. 3. Other incidental findings. Diagnostic code #9
[2018-10-06] MEDS ORDERED: Insulin Lispro 100 UNIT/ML 10 ML VIAL SUBCUT SCH (07:00)
[2018-10-06] MEDS ORDERED: Pantoprazole 40 MG Tab.CR PO SCH (07:00)
[2018-10-06 08:36] VITALS: BP 165/62
[2018-10-06] MEDS ORDERED: Clopidogrel 75 MG Tab **PTOM PO SCH (09:00)
[2018-10-06] MEDS ORDERED: Ferrous Sulfate 160 MG TAB.ER PO SCH (09:00)
[2018-10-06] MEDS ORDERED: Rosuvastatin 10 MG Tab PO SCH (09:00)
[2018-10-06] MEDS ORDERED: Clopidogrel 75 MG Tab PO SCH (09:00)
[2018-10-06] MEDS ORDERED: RANOLAZINE 500 MG PO SCH (09:30)
[2018-10-06] MEDS ORDERED: ROSUVASTATIN 20 MG PO SCH (09:30)
[2018-10-06] MEDS ORDERED: Pantoprazole 40 MG Tab.CR **PTOM PO SCH (09:30)
--- NOTE | 2018-10-06 11:26 | PCM.HP ---
H&P History of Present Illness - General Date of Service: 10/05/18 Admit Problem/Dx: Admission Diagnosis/Problem Admission Diagnosis/Problem Hypotension, Low blood pressure Neck Pain Score (Numeric/FACES): 10 - Related Data Allergies/Adverse Reactions: Allergies Allergy/AdvReac Type Severity Reaction Status Date / Time glipizide [From Glucotrol] Allergy Other Verified 10/05/18 19:09 ibuprofen Allergy Other Verified 10/05/18 19:09 metformin Allergy Other Verified 10/05/18 19:09 pioglitazone [From Actos] Allergy Other Verified 10/05/18 19:09 codeine AdvReac Nausea and Verified 10/05/18 19:09 Vomiting fish oil AdvReac Nausea and Verified 10/05/18 19:09 Vomiting Home Medications: Home Meds Clopidogrel [Plavix] 75 mg PO DAILY 03/05/14 [History] Isosorbide Mononitrate [Imdur] 120 mg PO DAILY 03/05/14 [History] Nitroglycerin [Nitrostat] 0.4 mg SL ASDIRECTED PRN 03/05/14 [History] Polyethylene Glycol 1000 [Polyethylene Glycol] 1 scoop PO ASDIRECTED 03/05/14 [ History] Acetaminophen [Acetaminophen Extra Strength] 1,000 mg PO BID PRN 10/15/14 [ History] Insulin Aspart [Novolog Flexpen] 17 unit SQ TIDAC 10/15/14 [History] Ranolazine [Ranexa] 500 mg PO BID 12/28/14 [History] Fluticasone Propionate [Flonase] 2 spray NS DAILY 03/30/16 [History] Pantoprazole [ProTONIX] 40 mg PO DAILY 03/30/16 [History] Budesonide [Pulmicort] 0.25 mg INH BID 06/30/16 [History] Furosemide [Lasix] 40 mg PO DAILY 06/30/16 [History] Levothyroxine Sodium [Synthroid] 50 mcg PO DAILY 06/30/16 [History] Montelukast [Singulair] 10 mg PO BEDTIME 06/30/16 [History] Ondansetron [Zofran ODT] 4 mg PO TID PRN 06/30/16 [History] Rosuvastatin [Crestor] 20 mg PO DAILY 06/30/16 [History] Tamsulosin [Flomax] 0.8 mg PO BEDTIME 06/30/16 [History] Captopril 50 mg PO BIDAC 06/17/17 [History] Gabapentin [Neurontin] 300 mg PO BID 06/17/17 [History] Umeclidinium [place] [Incruse Ellipta*] 62.5 mcg IH DAILY 06/17/17 [History] Apixaban [Eliquis] 5 mg PO BID 08/28/17 [History] Insulin Glargine,Hum.Rec.Anlog [Basaglar Kwikpen U-100] 45 units SQ BID [History] Triamcinolone Acetonide [Triamcinolone Acetonide 0.1% Crm] 1 applic TOP DAILY PRN 08/29/17 [History] Metoprolol Tartrate [Lopressor] 50 mg PO BID #60 tablet 09/01/17 [Rx] Arformoterol [Brovana] 15 mcg NEB BID 01/27/18 [History] Gabapentin [Neurontin] 100 mg PO BID 01/27/18 [History] Mupirocin Calcium [Mupirocin] 1 applic TOP BID 01/27/18 [History] ALPRAZolam [Xanax] 0.25 mg PO BID PRN 09/30/18 [History] Albuterol [Ventolin HFA] 2 puff INH QID PRN 09/30/18 [History] Azithromycin [Zithromax] 250 mg PO DAILY 09/30/18 [History] Benzonatate 100 mg PO TID 09/30/18 [History] Dextran/Hypromellose/Glycerin [Genteal Tears 0.1%-0.2%-0.3%] 1 drop EYEBOTH BEDTIME 09/30/18 [History] Insulin Aspart [NovoLOG] 24 units SUBCUT ASDIRECTED 09/30/18 [History] Ofloxacin [Ocuflox 0.3% Ophth Soln] 5 drop EARBOTH BID 09/30/18 [History] Phenol [Chloraseptic] 1 spray PO Q2HR PRN 09/30/18 [History] Promethazine HCl/Codeine [Prometh-Codein 6.25-10 mg/5 ml] 10 ml PO Q8HR PRN 01/11 [History] lamoTRIgine [Lamotrigine] 50 mg PO BEDTIME 09/30/18 [History] Benzonatate 200 mg PO TID PRN 10/01/18 [History] Calcium Carb/Magnesium Hydrox [Antacid Chewable Tablet] 1,000 mg PO QID PRN 02/11 [History] Carboxymethylcellulose Sodium [Refresh Tears 0.5%] 1 drop EYEBOTH QID 10/01/18 [ History] Cyanocobalamin (Vitamin B-12) [Cyanocobalamin Injection] 1,000 mcg SUBCUT ASDIRECTED 10/01/18 [History] Naphazoline HCl/Pheniramine [Opcon-A Eye Drops] 1 drop EYEBOTH DAILY 10/01/18 [ History] Cholecalciferol (Vitamin D3) [Vitamin D3] 5,000 unit PO BEDTIME 10 Days #10 tablet 10/03/18 [Rx] Ferrous Sulfate [Slow Release Iron] 160 mg PO DAILY 10 Days #10 tab.er 10/03/18 [Rx] Saccharomyces Boulardii [Florastor] 250 mg PO BID #40 cap 10/03/18 [Rx] amLODIPine Besylate [Norvasc] 10 mg PO BEDTIME #10 tablet 10/03/18 [Rx] cephALEXin [Keflex] 500 mg PO Q12H 6 Days #6 cap 10/03/18 [Rx] predniSONE 10 mg PO BID 10 Days #20 tablet 10/03/18 [Rx] Past Medical History HEENT History: Reports: Impaired Vision Other HEENT History: wears glasses Cardiovascular History: Reports: High Cholesterol, Hypertension, [place] Respiratory History: Reports: COPD, SOB, Other (See Below) Other Respiratory History: emphasema Gastrointestinal History: Reports: GERD Genitourinary History: Reports: None Musculoskeletal History: Reports: Back Pain, Chronic, Osteoarthritis Neurological History: Reports: Headaches, Chronic Other Neuro History: Stroke in 1971 Endocrine/Metabolic History: Reports: Diabetes, Type II Hematologic History: Reports: None Other Hematologic History: hypomagnesemia Oncologic (Cancer) History: Reports: None Dermatologic History: Reports: None Other Dermatologic History: seborrheic keratosis - Infectious Disease History Infectious Disease History: Reports: Influenza, Measles - Past Surgical History Head Surgeries/Procedures: Reports: None Cardiovascular Surgical History: Reports: Coronary Artery Stent GI Surgical History: Reports: Colonoscopy Social & Family History - Family History Family Medical History: Noncontributory - Tobacco Use Smoking Status *Q: Former Smoker Years of Tobacco use: 64 Packs/Tins Daily: 1.5 Used Tobacco, but Quit: Yes Month/Year Tobacco Last Used: 08/2013 Second Hand Smoke Exposure: No - Caffeine Use Caffeine Use: Reports: Coffee, Tea Other Caffeine Use: states he has one every once in awhile when he feels like it. - Recreational Drug Use Recreational Drug Use: No - Living Situation & Occupation Living situation: Reports: Single Occupation: Retired Exam - Vital Signs Vital Signs: Last Vital Signs Temp 36.3 C 10/06/18 08:15 Pulse 77 10/06/18 08:15 Resp 16 10/06/18 08:15 BP 165/62 H 10/06/18 08:15 Pulse Ox 95 10/06/18 08:15 Weight: 111.992 kg - Patient Data Lab Results Last 24 hrs: Laboratory Results - last 24 hr 10/05/18 10/05/18 10/05/18 Range/Units 19:40 19:40 19:40 WBC 13.95 H (4.23-9.07) K/mm3 RBC 4.07 L (4.63-6.08) M/mm3 Hgb 11.7 L (13.7-17.5) gm/L Hct 37.5 L (40.1-51.0) % MCV 92.1 (79.0-92.2) fl MCH 28.7 (25.7-32.2) pg MCHC 31.2 L (32.2-35.5) g/dl RDW Std Deviation 46.6 H (35.1-43.9) fL Plt Count 211 (163-337) K/mm3 MPV 10.9 (9.4-12.3) fl Neut % (Auto) (34.0-67.9) % Lymph % (Auto) (21.8-53.1) % [place] % (Auto) (5.3-12.2) % Eos % (Auto) (0.8-7.0) Baso % (Auto) (0.1-1.2) % Neut # (Auto) (1.78-5.38) K/mm3 Lymph # (Auto) (1.32-3.57) K/mm3 [place] # (Auto) (0.30-0.82) K/mm3 Eos # (Auto) (0.04-0.54) K/mm3 Baso # (Auto) (0.01-0.08) K/mm3 Neutrophils % (Manual) 79 H (40-60) % Band Neutrophils % 0 (0-10) % Lymphocytes % (Manual) 13 L (20-40) % Atypical Lymphs % 0 % Monocytes % (Manual) 5 (2-10) % Eosinophils % (Manual) 1 (0.8-7.0) % Basophils % (Manual) 1 (0.2-1.2) Myelocytes % 1 Manual Slide Review Platelet Estimate Adequate Plt Morphology Comment Normal RBC Morph Comment Normal PT 10.9 (9.5-12.1) SECONDS INR 1.00 APTT 27 (24-31) SECONDS Sodium 141 (136-145) mEq/L Potassium 4.4 (3.5-5.1) mEq/L Chloride 102 (98-107) mEq/L Carbon Dioxide 33 H (21-32) mEq/L Anion Gap 10.4 (5-15) BUN 51 H (7-18) mg/dL Creatinine 2.4 H (0.7-1.3) mg/dL Est Cr Clr Drug Dosing 25.37 mL/min Estimated GFR (MDRD) 26 (>60) mL/min BUN/Creatinine Ratio 21.3 H (14-18) Glucose 171 H (83-115) mg/dL POC Glucose (83-110) mg/dL Lactic Acid (0.4-2.0) mmol/L Calcium 9.1 (8.5-10.1) mg/dL Magnesium 2.2 (1.8-2.4) mg/dl Total Bilirubin 0.4 (0.2-1.0) mg/dL AST 16 (15-37) U/L ALT 30 (16-63) U/L Alkaline Phosphatase 71 (46-116) U/L CK-MB (CK-2) 6.4 H (0-3.6) ng/ml Troponin I 0.026 (0.00-0.056) ng/mL C-Reactive Protein 0.7 (<1.0) mg/dL NT-Pro-B Natriuret Pep (0-450) pg/mL Total Protein 6.5 (6.4-8.2) g/dl Albumin 3.1 L (3.4-5.0) g/dl Globulin 3.4 gm/dL Albumin/Globulin Ratio 0.9 L (1-2) Urine Color (Yellow) Urine Appearance (Clear) Urine pH (5.0-8.0) Ur Specific [place] (1.005-1.030) Urine Protein (Negative) Urine Glucose (UA) (Negative) Urine Ketones (Negative) Urine Occult Blood (Negative) Urine Nitrite (Negative) Urine Bilirubin (Negative) Urine Urobilinogen (0.2-1.0) Ur Leukocyte Esterase (Negative) Urine RBC (0-5) /hpf Urine WBC (0-5) /hpf Ur Epithelial Cells (0-5) /hpf Urine Bacteria (FEW) /hpf Hyaline Casts (0-5) /lpf Urine Mucus (FEW) /hpf Blood Type Gel Antibody Screen 10/05/18 10/05/18 10/05/18 Range/Units 19:40 19:40 19:40 WBC (4.23-9.07) K/mm3 RBC (4.63-6.08) M/mm3 Hgb (13.7-17.5) gm/L Hct (40.1-51.0) % MCV (79.0-92.2) fl MCH (25.7-32.2) pg MCHC (32.2-35.5) g/dl RDW Std Deviation (35.1-43.9) fL Plt Count (163-337) K/mm3 MPV (9.4-12.3) fl Neut % (Auto) (34.0-67.9) % Lymph % (Auto) (21.8-53.1) % [place] % (Auto) (5.3-12.2) % Eos % (Auto) (0.8-7.0) Baso % (Auto) (0.1-1.2) % Neut # (Auto) (1.78-5.38) K/mm3 Lymph # (Auto) (1.32-3.57) K/mm3 [place] # (Auto) (0.30-0.82) K/mm3 Eos # (Auto) (0.04-0.54) K/mm3 Baso # (Auto) (0.01-0.08) K/mm3 Neutrophils % (Manual) (40-60) % Band Neutrophils % (0-10) % Lymphocytes % (Manual) (20-40) % Atypical Lymphs % % Monocytes % (Manual) (2-10) % Eosinophils % (Manual) (0.8-7.0) % Basophils % (Manual) (0.2-1.2) Myelocytes % Manual Slide Review Platelet Estimate Plt Morphology Comment RBC Morph Comment PT (9.5-12.1) SECONDS INR APTT (24-31) SECONDS Sodium (136-145) mEq/L Potassium (3.5-5.1) mEq/L Chloride (98-107) mEq/L Carbon Dioxide (21-32) mEq/L Anion Gap (5-15) BUN (7-18) mg/dL Creatinine (0.7-1.3) mg/dL Est Cr Clr Drug Dosing mL/min Estimated GFR (MDRD) (>60) mL/min BUN/Creatinine Ratio (14-18) Glucose (83-115) mg/dL POC Glucose (83-110) mg/dL Lactic Acid 1.5 (0.4-2.0) mmol/L Calcium (8.5-10.1) mg/dL Magnesium (1.8-2.4) mg/dl Total Bilirubin (0.2-1.0) mg/dL AST (15-37) U/L ALT (16-63) U/L Alkaline Phosphatase (46-116) U/L CK-MB (CK-2) (0-3.6) ng/ml Troponin I (0.00-0.056) ng/mL C-Reactive Protein (<1.0) mg/dL NT-Pro-B Natriuret Pep 728 H (0-450) pg/mL Total Protein (6.4-8.2) g/dl Albumin (3.4-5.0) g/dl Globulin gm/dL Albumin/Globulin Ratio (1-2) Urine Color (Yellow) Urine Appearance (Clear) Urine pH (5.0-8.0) Ur Specific [place] (1.005-1.030) Urine Protein (Negative) Urine Glucose (UA) (Negative) Urine Ketones (Negative) Urine Occult Blood (Negative) Urine Nitrite (Negative) Urine Bilirubin (Negative) Urine Urobilinogen (0.2-1.0) Ur Leukocyte Esterase (Negative) Urine RBC (0-5) /hpf Urine WBC (0-5) /hpf Ur Epithelial Cells (0-5) /hpf Urine Bacteria (FEW) /hpf Hyaline Casts (0-5) /lpf Urine Mucus (FEW) /hpf Blood Type A NEGATIVE Gel Antibody Screen Negative 10/05/18 10/05/18 10/06/18 Range/Units 20:31 22:26 05:05 WBC (4.23-9.07) K/mm3 RBC (4.63-6.08) M/mm3 Hgb (13.7-17.5) gm/L Hct (40.1-51.0) % MCV (79.0-92.2) fl MCH (25.7-32.2) pg MCHC (32.2-35.5) g/dl RDW Std Deviation (35.1-43.9) fL Plt Count (163-337) K/mm3 MPV (9.4-12.3) fl Neut % (Auto) (34.0-67.9) % Lymph % (Auto) (21.8-53.1) % [place] % (Auto) (5.3-12.2) % Eos % (Auto) (0.8-7.0) Baso % (Auto) (0.1-1.2) % Neut # (Auto) (1.78-5.38) K/mm3 Lymph # (Auto) (1.32-3.57) K/mm3 [place] # (Auto) (0.30-0.82) K/mm3 Eos # (Auto) (0.04-0.54) K/mm3 Baso # (Auto) (0.01-0.08) K/mm3 Neutrophils % (Manual) (40-60) % Band Neutrophils % (0-10) % Lymphocytes % (Manual) (20-40) % Atypical Lymphs % % Monocytes % (Manual) (2-10) % Eosinophils % (Manual) (0.8-7.0) % Basophils % (Manual) (0.2-1.2) Myelocytes % Manual Slide Review Platelet Estimate Plt Morphology Comment RBC Morph Comment PT (9.5-12.1) SECONDS INR APTT (24-31) SECONDS Sodium (136-145) mEq/L Potassium (3.5-5.1) mEq/L Chloride (98-107) mEq/L Carbon Dioxide (21-32) mEq/L Anion Gap (5-15) BUN (7-18) mg/dL Creatinine (0.7-1.3) mg/dL Est Cr Clr Drug Dosing mL/min Estimated GFR (MDRD) (>60) mL/min BUN/Creatinine Ratio (14-18) Glucose (83-115) mg/dL POC Glucose 166 H 159 H (83-110) mg/dL Lactic Acid (0.4-2.0) mmol/L Calcium (8.5-10.1) mg/dL Magnesium (1.8-2.4) mg/dl Total Bilirubin (0.2-1.0) mg/dL AST (15-37) U/L ALT (16-63) U/L Alkaline Phosphatase (46-116) U/L CK-MB (CK-2) (0-3.6) ng/ml Troponin I (0.00-0.056) ng/mL C-Reactive Protein (<1.0) mg/dL NT-Pro-B Natriuret Pep (0-450) pg/mL Total Protein (6.4-8.2) g/dl Albumin (3.4-5.0) g/dl Globulin gm/dL Albumin/Globulin Ratio (1-2) Urine Color Yellow (Yellow) Urine Appearance Clear (Clear) Urine pH 6.0 (5.0-8.0) Ur Specific [place] 1.015 (1.005-1.030) Urine Protein Negative (Negative) Urine Glucose (UA) Negative (Negative) Urine Ketones Negative (Negative) Urine Occult Blood Negative (Negative) Urine Nitrite Negative (Negative) Urine Bilirubin Negative (Negative) Urine Urobilinogen 0.2 (0.2-1.0) Ur Leukocyte Esterase Negative (Negative) Urine RBC Not seen (0-5) /hpf Urine WBC 0-5 (0-5) /hpf Ur Epithelial Cells Not seen (0-5) /hpf Urine Bacteria Not seen (FEW) /hpf Hyaline Casts 0-5 (0-5) /lpf Urine Mucus Not seen (FEW) /hpf Blood Type Gel Antibody Screen 10/06/18 10/06/18 10/06/18 Range/Units 05:46 05:46 06:04 WBC 11.49 H (4.23-9.07) K/mm3 RBC 3.84 L (4.63-6.08) M/mm3 Hgb 11.1 L (13.7-17.5) gm/L Hct 35.4 L (40.1-51.0) % MCV 92.2 (79.0-92.2) fl MCH 28.9 (25.7-32.2) pg MCHC 31.4 L (32.2-35.5) g/dl RDW Std Deviation 46.4 H (35.1-43.9) fL Plt Count 149 L (163-337) K/mm3 MPV 11.1 (9.4-12.3) fl Neut % (Auto) 72.0 H (34.0-67.9) % Lymph % (Auto) 14.5 L (21.8-53.1) % [place] % (Auto) 10.2 (5.3-12.2) % Eos % (Auto) 1.9 (0.8-7.0) Baso % (Auto) 0.2 (0.1-1.2) % Neut # (Auto) 8.27 H (1.78-5.38) K/mm3 Lymph # (Auto) 1.67 (1.32-3.57) K/mm3 [place] # (Auto) 1.17 H (0.30-0.82) K/mm3 Eos # (Auto) 0.22 (0.04-0.54) K/mm3 Baso # (Auto) 0.02 (0.01-0.08) K/mm3 Neutrophils % (Manual) (40-60) % Band Neutrophils % (0-10) % Lymphocytes % (Manual) (20-40) % Atypical Lymphs % % Monocytes % (Manual) (2-10) % Eosinophils % (Manual) (0.8-7.0) % Basophils % (Manual) (0.2-1.2) Myelocytes % Manual Slide Review Normal smear Platelet Estimate Plt Morphology Comment RBC Morph Comment PT (9.5-12.1) SECONDS INR APTT (24-31) SECONDS Sodium 141 (136-145) mEq/L Potassium 4.1 (3.5-5.1) mEq/L Chloride 102 (98-107) mEq/L Carbon Dioxide 32 (21-32) mEq/L Anion Gap 11.1 (5-15) BUN 46 H (7-18) mg/dL Creatinine 2.0 H (0.7-1.3) mg/dL Est Cr Clr Drug Dosing 36.38 mL/min Estimated GFR (MDRD) 32 (>60) mL/min BUN/Creatinine Ratio 23.0 H (14-18) Glucose 133 H (83-115) mg/dL POC Glucose 131 H (83-110) mg/dL Lactic Acid (0.4-2.0) mmol/L Calcium 9.0 (8.5-10.1) mg/dL Magnesium 2.1 (1.8-2.4) mg/dl Total Bilirubin (0.2-1.0) mg/dL AST (15-37) U/L ALT (16-63) U/L Alkaline Phosphatase (46-116) U/L CK-MB (CK-2) (0-3.6) ng/ml Troponin I (0.00-0.056) ng/mL C-Reactive Protein (<1.0) mg/dL NT-Pro-B Natriuret Pep (0-450) pg/mL Total Protein (6.4-8.2) g/dl Albumin (3.4-5.0) g/dl Globulin gm/dL Albumin/Globulin Ratio (1-2) Urine Color (Yellow) Urine Appearance (Clear) Urine pH (5.0-8.0) Ur Specific [place] (1.005-1.030) Urine Protein (Negative) Urine Glucose (UA) (Negative) Urine Ketones (Negative) Urine Occult Blood (Negative) Urine Nitrite (Negative) Urine Bilirubin (Negative) Urine Urobilinogen (0.2-1.0) Ur Leukocyte Esterase (Negative) Urine RBC (0-5) /hpf Urine WBC (0-5) /hpf Ur Epithelial Cells (0-5) /hpf Urine Bacteria (FEW) /hpf Hyaline Casts (0-5) /lpf Urine Mucus (FEW) /hpf Blood Type Gel Antibody Screen 10/06/18 Range/Units 11:10 WBC (4.23-9.07) K/mm3 RBC (4.63-6.08) M/mm3 Hgb (13.7-17.5) gm/L Hct (40.1-51.0) % MCV (79.0-92.2) fl MCH (25.7-32.2) pg MCHC (32.2-35.5) g/dl RDW Std Deviation (35.1-43.9) fL Plt Count (163-337) K/mm3 MPV (9.4-12.3) fl Neut % (Auto) (34.0-67.9) % Lymph % (Auto) (21.8-53.1) % [place] % (Auto) (5.3-12.2) % Eos % (Auto) (0.8-7.0) Baso % (Auto) (0.1-1.2) % Neut # (Auto) (1.78-5.38) K/mm3 Lymph # (Auto) (1.32-3.57) K/mm3 [place] # (Auto) (0.30-0.82) K/mm3 Eos # (Auto) (0.04-0.54) K/mm3 Baso # (Auto) (0.01-0.08) K/mm3 Neutrophils % (Manual) (40-60) % Band Neutrophils % (0-10) % Lymphocytes % (Manual) (20-40) % Atypical Lymphs % % Monocytes % (Manual) (2-10) % Eosinophils % (Manual) (0.8-7.0) % Basophils % (Manual) (0.2-1.2) Myelocytes % Manual Slide Review Platelet Estimate Plt Morphology Comment RBC Morph Comment PT (9.5-12.1) SECONDS INR APTT (24-31) SECONDS Sodium (136-145) mEq/L Potassium (3.5-5.1) mEq/L Chloride (98-107) mEq/L Carbon Dioxide (21-32) mEq/L Anion Gap (5-15) BUN (7-18) mg/dL Creatinine (0.7-1.3) mg/dL Est Cr Clr Drug Dosing mL/min Estimated GFR (MDRD) (>60) mL/min BUN/Creatinine Ratio (14-18) Glucose (83-115) mg/dL POC Glucose 176 H (83-110) mg/dL Lactic Acid (0.4-2.0) mmol/L Calcium (8.5-10.1) mg/dL Magnesium (1.8-2.4) mg/dl Total Bilirubin (0.2-1.0) mg/dL AST (15-37) U/L ALT (16-63) U/L Alkaline Phosphatase (46-116) U/L CK-MB (CK-2) (0-3.6) ng/ml Troponin I (0.00-0.056) ng/mL C-Reactive Protein (<1.0) mg/dL NT-Pro-B Natriuret Pep (0-450) pg/mL Total Protein (6.4-8.2) g/dl Albumin (3.4-5.0) g/dl Globulin gm/dL Albumin/Globulin Ratio (1-2) Urine Color (Yellow) Urine Appearance (Clear) Urine pH (5.0-8.0) Ur Specific [place] (1.005-1.030) Urine Protein (Negative) Urine Glucose (UA) (Negative) Urine Ketones (Negative) Urine Occult Blood (Negative) Urine Nitrite (Negative) Urine Bilirubin (Negative) Urine Urobilinogen (0.2-1.0) Ur Leukocyte Esterase (Negative) Urine RBC (0-5) /hpf Urine WBC (0-5) /hpf Ur Epithelial Cells (0-5) /hpf Urine Bacteria (FEW) /hpf Hyaline Casts (0-5) /lpf Urine Mucus (FEW) /hpf Blood Type Gel Antibody Screen Result Diagrams: 10/06/18 05:46 10/06/18 05:46 Orders Last 24hrs: Active Orders 24 hr Category Date Time Status Admission Status [Patient Status] [ADT] Routine ADT 10/05/18 21:22 Active Activity as Tolerated [RC] BID Care 10/06/18 01:42 Active Blood Glucose Check, Bedside [RC] QIDACANDBED Care 10/05/18 22:31 Active Oxygen Therapy [RC] ASDIRECTED Care 10/05/18 19:22 Active ADA Diabetic [[place] Diet] [DIET Diet 10/06/18 Breakfast Active ] Heart Healthy Diet [DIET] Diet 10/06/18 Breakfast Active CULTURE BLOOD [BC] Stat Lab 10/05/18 19:50 Received CULTURE BLOOD [BC] Stat Lab 10/05/18 20:05 Received PATIENT RETYPE [BBK] Routine Lab 10/05/18 21:22 Ordered ALPRAZolam [Xanax] Med 10/05/18 22:46 Active 0.25 mg PO BID PRN Albuterol [Proventil HFA] Med 10/05/18 22:50 Active 0 gm INH QID PRN Apixaban [Eliquis] Med 10/05/18 22:45 Active 5 mg PO BID Ferrous Sulfate [Slow Release Iron] Med 10/06/18 09:00 Active 160 mg PO DAILY Gabapentin [Neurontin] Med 10/05/18 22:45 Active 300 mg PO BID Insulin Lispro [HumaLOG] Med 10/06/18 07:00 Active See Protocol SUBCUT QIDACANDBED Patient's Own Medication [Ptom] Med 10/06/18 09:30 Active 0 each PO BID Patient's Own Medication [Ptom] Med 10/06/18 09:00 Active 0 each PO DAILY Patient's Own Medication [Ptom] Med 10/06/18 09:30 Active 0 each PO DAILY Patient's Own Medication [Ptom] Med 10/06/18 09:30 Active 0 each PO DAILY@0700 Saccharomyces Boulardii [Florastor] Med 10/05/18 22:45 Active 250 mg PO BID Sodium Chloride 0.9% [Normal Saline] 1,000 ml Med 10/05/18 22:45 Active IV ASDIRECTED Tamsulosin [Flomax] Med 10/06/18 21:00 Active 0.8 mg PO BEDTIME cephALEXin [Keflex] Med 10/05/18 22:45 Active 500 mg PO BID predniSONE Med 10/05/18 22:45 Active 10 mg PO BIDMEALS Blood Culture x2 Reflex Set [OM.PC] Stat Oth 10/05/18 19:22 Ordered Code Status [Resuscitation Status] Routine Resus Stat 10/05/18 22:35 Ordered Medication Orders Albuterol (Proventil Hfa) 0 gm INH QID PRN PRN Reason: Shortness of Breath Alprazolam (Xanax) 0.25 mg PO BID PRN PRN Reason: Anxiety Apixaban (Eliquis) 5 mg PO BID [facility] Last Admin: 10/06/18 11:01 Dose: Admin: 10/06/18 00:43 Dose: Not Given Cephalexin (Keflex) 500 mg PO BID [facility] Last Admin: 10/06/18 11:02 Dose: Admin: 10/06/18 00:44 Dose: Not Given Ferrous Sulfate (Slow Release Iron) 160 mg PO DAILY [facility] Last Admin: 10/06/18 11:02 Dose: Gabapentin (Neurontin) 300 mg PO BID [facility] Last Admin: 10/06/18 11:02 Dose: Admin: 10/06/18 00:44 Dose: Not Given Sodium Chloride (Normal Saline) 1,000 mls @ 75 mls/hr IV ASDIRECTED [facility] Last Admin: 10/06/18 02:33 Dose: 75 mls/hr Insulin Human Lispro (Humalog) 0 unit SUBCUT QIDACANDBED [facility]; Protocol Last Admin: 10/06/18 06:31 Dose: Not Given Ranolazine 500 Mg (Tab.Er Ptom) 0 each PO BID [facility] Last Admin: 10/06/18 11:02 Dose: Pantoprazole 40 Mg (Tab.Cr Ptom) 0 each PO DAILY@0700 [facility] Last Admin: 10/06/18 11:02 Dose: Clopidogrel 75 Mg (Tab Ptom) 0 each PO DAILY [facility] Last Admin: 10/06/18 11:02 Dose: Rosuvastatin 20 Mg (Tab Ptom) 0 each PO DAILY [facility] Last Admin: 10/06/18 11:02 Dose: Prednisone (Prednisone) 10 mg PO BIDMEALS [facility] Last Admin: 10/06/18 11:01 Dose: Admin: 10/06/18 00:44 Dose: Not Given Saccharomyces Boulardii (Florastor) 250 mg PO BID [facility] Last Admin: 10/06/18 11:02 Dose: Admin: 10/06/18 01:43 Dose: Not Given Tamsulosin HCl (Flomax) 0.8 mg PO BEDTIME [facility]
[2018-10-06] MEDS ORDERED: Tamsulosin 0.4 MG Cap.ER PO SCH (21:00)
== END 2018-10-06 12:10 | disposition home or self-care (01) ==
LOC: JD.ED 19:06 → JD.MS 21:22
PROVIDERS: ADMIT Internal Medicine Cardiovascular Disease; ATTEND Internal Medicine Cardiovascular Disease
DX: I95.9 Hypotension, unspecified (principal); I10 Essential (primary) hypertension; J43.9 Emphysema, unspecified; E11.9 Type 2 diabetes mellitus without complications; E78.00 Pure hypercholesterolemia, unspecified; Z86.73 Personal history of transient ischemic attack (TIA), and cerebral infarction without residual deficits; Z87.891 Personal history of nicotine dependence; Z79.02 Long term (current) use of antithrombotics/antiplatelets; Z79.4 Long term (current) use of insulin; Z79.899 Other long term (current) drug therapy; Z88.8 Allergy status to other drugs, medicaments and biological substances; Z88.5 Allergy status to narcotic agent
CPT/HCPCS: 36415; 71045; 80048; 80053; 81001; 82553; 82962; 83605; 83735; 83880; 84484; 85007; 85025; 85027; 85610; 85730; 86140; 86850; 86900; 86901; 87040; 93005; 96361; 96374; 99285; G0378; J2405; J7040; 93010

== ENCOUNTER 2020-01-05 17:35 | Emergency (ER) | payer MEDICARE, MEDICAID ==
[2020-01-05 17:48] VITALS: BP 150/72; PULSE 68
[2020-01-05] MEDS ORDERED: Alum Hydrox/Mag Hydrox/Simeth 30 ML, Lidocaine 2% 15 ML PO ONE ×2 (18:00)
--- NOTE | 2020-01-05 18:06 | EDM.PDOC ---
ED HPI GENERAL MEDICAL PROBLEM - General Chief Complaint: Chest Pain Stated Complaint: [facility] Time Seen by Provider: 01/05/20 17:43 Source of Information: Reports: Patient, EMS Notes Reviewed, Old Records, RN Notes Reviewed History Limitations: Reports: No Limitations - History of Present Illness INITIAL COMMENTS - FREE TEXT/NARRATIVE: Patient is a 79-year-old male who presents to the ED for evaluation for mid chest pain. Patient was brought to this ER by [facility]. He was administered 2 doses of nitroglycerin in the ambulance, and this reportedly brought his pain from 10 out of 10 to a 6 out of 10. Patient notes that he is having a sharp midsternal chest pain that does radiate through to his shoulder blades, he feels as if someone stabbing him with a knife. He notes that today, this started a couple hours ago when he was having a slight headache, nausea. He does wear oxygen chronically at 2 L. Patient denies any fevers or chills, shortness of breath, cough or other sick-like symptoms. Patient states he has issues with reflux, and notes that he had some of this pain yesterday and he took some Tums and it seemed to help, he tried again today with the Tums and a glass of milk but this did not help the pain today. Patient's primary care provider is Dr. Guillermo. Patient has multiple medical issues and is on multiple medications for these issues. 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 Middle Anterior Chest Pain Score (Numeric/FACES): 3 - Related Data Allergies Allergy/AdvReac Type Severity Reaction Status Date / Time glipizide [From Glucotrol] Allergy Other Verified 01/05/20 17:49 ibuprofen Allergy Other Verified 01/05/20 17:49 metformin Allergy Other Verified 01/05/20 17:49 pioglitazone [From Actos] Allergy Other Verified 01/05/20 17:49 codeine AdvReac Nausea and Verified 01/05/20 17:49 Vomiting fish oil AdvReac Nausea and Verified 01/05/20 17:49 Vomiting Home Meds: Home Meds Clopidogrel [Plavix] 75 mg PO DAILY 03/05/14 [History] Isosorbide Mononitrate [Imdur] 120 mg PO DAILY 03/05/14 [History] Nitroglycerin [Nitrostat] 0.4 mg SL ASDIRECTED PRN 03/05/14 [History] Polyethylene Glycol 1000 [Polyethylene Glycol] 1 scoop PO ASDIRECTED 03/05/14 [ History] Acetaminophen [Acetaminophen Extra Strength] 1,000 mg PO BID PRN 10/15/14 [ History] Insulin Aspart [Novolog Flexpen] 17 unit SQ TIDAC 10/15/14 [History] Ranolazine [Ranexa] 500 mg PO BID 12/28/14 [History] Fluticasone Propionate [Flonase] 2 spray NS DAILY 03/30/16 [History] Pantoprazole [ProTONIX] 40 mg PO DAILY 03/30/16 [History] Budesonide [Pulmicort] 0.25 mg INH BID 06/30/16 [History] Furosemide [Lasix] 40 mg PO DAILY 06/30/16 [History] Levothyroxine Sodium [Synthroid] 50 mcg PO DAILY 06/30/16 [History] Montelukast [Singulair] 10 mg PO BEDTIME 06/30/16 [History] Ondansetron [Zofran ODT] 4 mg PO TID PRN 06/30/16 [History] Rosuvastatin [Crestor] 20 mg PO DAILY 06/30/16 [History] Tamsulosin [Flomax] 0.8 mg PO BEDTIME 06/30/16 [History] Gabapentin [Neurontin] 300 mg PO BID 06/17/17 [History] Umeclidinium Thorp [Incruse Ellipta*] 62.5 mcg IH DAILY 06/17/17 [History] captopriL [Captopril] 50 mg PO BIDAC 06/17/17 [History] Apixaban [Eliquis] 5 mg PO BID 08/28/17 [History] Insulin Glargine,Hum.Rec.Anlog [Basaglar Kwikpen U-100] 45 units SQ BID [History] Triamcinolone Acetonide [Triamcinolone Acetonide 0.1% Crm] 1 applic TOP DAILY PRN 08/29/17 [History] Metoprolol Tartrate [Lopressor] 50 mg PO BID #60 tablet 09/01/17 [Rx] Arformoterol [Brovana] 15 mcg NEB BID 01/27/18 [History] Gabapentin [Neurontin] 100 mg PO BID 01/27/18 [History] Mupirocin Calcium [Mupirocin] 1 applic TOP BID 01/27/18 [History] ALPRAZolam [Xanax] 0.25 mg PO BID PRN 09/30/18 [History] Albuterol [Ventolin HFA] 2 puff INH QID PRN 09/30/18 [History] Benzonatate 100 mg PO TID 09/30/18 [History] Dextran/Hypromellose/Glycerin [Genteal Tears 0.1%-0.2%-0.3%] 1 drop EYEBOTH BEDTIME 09/30/18 [History] Insulin Aspart [NovoLOG] 24 units SUBCUT ASDIRECTED 09/30/18 [History] Ofloxacin [Ocuflox 0.3% Ophth Soln] 5 drop EARBOTH BID 09/30/18 [History] Phenol [Chloraseptic] 1 spray PO Q2HR PRN 09/30/18 [History] Promethazine HCl/Codeine [Prometh-Codein 6.25-10 mg/5 ml] 10 ml PO Q8HR PRN 01/11 [History] lamoTRIgine [Lamotrigine] 50 mg PO BEDTIME 09/30/18 [History] Benzonatate 200 mg PO TID PRN 10/01/18 [History] Calcium Carb/Magnesium Hydrox [Antacid Chewable Tablet] 1,000 mg PO QID PRN 02/11 [History] Carboxymethylcellulose Sodium [Refresh Tears 0.5%] 1 drop EYEBOTH QID 10/01/18 [ History] Cyanocobalamin (Vitamin B-12) [Cyanocobalamin Injection] 1,000 mcg SUBCUT ASDIRECTED 10/01/18 [History] Naphazoline HCl/Pheniramine [Opcon-A Eye Drops] 1 drop EYEBOTH DAILY 10/01/18 [ History] Cholecalciferol (Vitamin D3) [Vitamin D3] 5,000 unit PO BEDTIME 10 Days #10 tablet 10/03/18 [Rx] Ferrous Sulfate [Slow Release Iron] 160 mg PO DAILY 10 Days #10 tab.er 10/03/18 [Rx] Saccharomyces Boulardii [Florastor] 250 mg PO BID #40 cap 10/03/18 [Rx] amLODIPine Besylate [Norvasc] 10 mg PO BEDTIME #10 tablet 10/03/18 [Rx] cephALEXin [Keflex] 500 mg PO Q12H 6 Days #6 cap 10/06/18 [Rx] predniSONE 10 mg PO BIDMEALS tablet 10/06/18 [Rx] levoFLOXacin [Levaquin] 500 mg PO DAILY #10 tab 01/05/20 [Rx] Past Medical History HEENT History: Reports: Impaired Vision Other HEENT History: wears glasses Cardiovascular History: Reports: High Cholesterol, Hypertension, MA Respiratory History: Reports: COPD, SOB, Other (See Below) Other Respiratory History: emphysema Gastrointestinal History: Reports: GERD Musculoskeletal History: Reports: Back Pain, Chronic, Osteoarthritis Neurological History: Reports: Headaches, Chronic Other Neuro History: Stroke in 1971 Endocrine/Metabolic History: Reports: Diabetes, Type II Other Hematologic History: hypomagnesemia Dermatologic History: Reports: Other (See Below) Other Dermatologic History: seborrheic keratosis - Infectious Disease History Infectious Disease History: Reports: Influenza, Measles - Past Surgical History Cardiovascular Surgical History: Reports: Coronary Artery Stent GI Surgical History: Reports: Colonoscopy Social & Family History - Family History Family Medical History: Noncontributory - Tobacco Use Smoking Status *Q: Former Smoker Used Tobacco, but Quit: Yes Month/Year Tobacco Last Used: 2004 - Caffeine Use Caffeine Use: Reports: Coffee, Tea Other Caffeine Use: states he has one every once in awhile when he feels like it. - Recreational Drug Use Recreational Drug Use: No - Living Situation & Occupation Living situation: Reports: Single Occupation: Retired ED ROS GENERAL - Review of Systems Review Of Systems: Comprehensive ROS is negative, except as noted in HPI. ED EXAM, GENERAL - Physical Exam Exam: See Below Exam Limited By: No Limitations General Appearance: Alert, WD/WN, No Apparent Distress Respiratory/Chest: No Respiratory Distress, Lungs Clear, Normal Breath Sounds, No Accessory Muscle Use, Chest Non-Tender Cardiovascular: Normal Peripheral Pulses, Regular Rate, Rhythm, No Murmur GI/Abdominal: Normal Bowel Sounds, Soft, Non-Tender, No Distention, No Mass Extremities: Normal Inspection, Normal Capillary Refill Neurological: Alert, Oriented, Normal Cognition, No Motor/Sensory Deficits Psychiatric: Normal Affect, Normal Mood Skin Exam: Warm, Dry, Intact, Normal Color, No Rash EKG INTERPRETATION EKG Date: 01/05/20 Time: 18:51 Rhythm: NSR Rate (Beats/Min): 64 Kirklin: LAD-Left Kirklin Deviation P-Wave: Present QRS: Normal ST-T: Normal QT: Normal Comparison: No Change EKG Interpretation Comments: No obvious ischemia or acute ST changes noted, reviewed by myself and Dr. Stephenson. Course - Vital Signs Last Recorded V/S: Last Vital Signs Temp 97.3 F 01/05/20 17:41 Pulse 68 01/05/20 17:41 Resp 16 01/05/20 17:41 BP 150/72 H 01/05/20 17:41 Pulse Ox 97 01/05/20 17:41 - Orders/Labs/Meds Orders: Active Orders 24 hr Category Date Time Status EKG Documentation Completion [RC] STAT Care 01/05/20 17:44 Ordered Chest 2V [CR] Stat Exams 01/05/20 17:44 Ordered COMPREHENSIVE METABOLIC PN,CMP [CHEM] Stat Lab 01/05/20 17:44 Ordered MAGNESIUM [CHEM] Stat Lab 01/05/20 17:44 Ordered PRO B-TYPE NATRIUR PEPT,BNPPRO [CHEM] Stat Lab 01/05/20 17:44 Ordered TROPONIN I [CHEM] Stat Lab 01/05/20 17:44 Ordered Labs: Laboratory Tests 01/05/20 01/05/20 01/05/20 Range/Units 17:57 17:57 17:57 WBC 6.89 (4.23-9.07) K/mm3 RBC 3.83 L (4.63-6.08) M/mm3 Hgb 11.0 L (13.7-17.5) gm/dl Hct 34.9 L (40.1-51.0) % MCV 91.1 (79.0-92.2) fl MCH 28.7 (25.7-32.2) pg MCHC 31.5 L (32.2-35.5) g/dl RDW Std Deviation 46.1 H (35.1-43.9) fL Plt Count 155 L (163-337) K/mm3 MPV 10.8 (9.4-12.3) fl Neutrophils % (Manual) 77 H (40-60) % Band Neutrophils % 0 (0-10) % Lymphocytes % (Manual) 16 L (20-40) % Atypical Lymphs % 0 % Monocytes % (Manual) 5 (2-10) % Eosinophils % (Manual) 2 (0.8-7.0) % Basophils % (Manual) 0 L (0.2-1.2) Platelet Estimate Adequate RBC Morph Comment Normal PT 10.9 (9.7-12.0) SECONDS INR 1.00 APTT 30 (22-31) SECONDS Sodium 142 (136-145) mEq/L Potassium 4.2 (3.5-5.1) mEq/L Chloride 102 (98-107) mEq/L Carbon Dioxide 32 (21-32) mEq/L Anion Gap 12.2 (5-15) BUN 24 H (7-18) mg/dL Creatinine 1.7 H (0.7-1.3) mg/dL Est Cr Clr Drug Dosing 42.11 mL/min Estimated GFR (MDRD) 39 (>60) mL/min BUN/Creatinine Ratio 14.1 (14-18) Glucose 201 H (83-115) mg/dL Calcium 8.3 L (8.5-10.1) mg/dL Magnesium 1.7 L (1.8-2.4) mg/dl Total Bilirubin 0.6 (0.2-1.0) mg/dL ALT 18 (16-63) U/L Alkaline Phosphatase 77 (46-116) U/L Troponin I < 0.017 (0.00-0.056) ng/mL Total Protein 6.8 (6.4-8.2) g/dl Albumin 3.2 L (3.4-5.0) g/dl Globulin 3.6 gm/dL Albumin/Globulin Ratio 0.9 L (1-2) Meds: Medications Discontinued Medications Generic Name Dose Route Start Last Admin Trade Name Freq PRN Reason Stop Dose Admin Al Hydroxide/Mg Hydroxide 30 0 ml 01/05/20 18:00 01/05/20 18:12 ml/ Lidocaine HCl 15 ml PO 01/05/20 18:01 45 ml ONETIME ONE Administration - Re-Assessments/Exams Free Text/Narrative Re-Assessment/Exam: 01/05/20 18:05 Patient presents to the ED for evaluation of his chest pain. We will get baseline labs with EKG and a chest x-ray for further evaluation. 01/05/20 19:12 The patient's chest x-ray has been completed and there are 2 areas of concern at the patient's lung bases, question acute pneumonia versus other chronic changes. Patient is not complaining of any cough or shortness of breath, and laboratory evaluation is essentially normal, with no worrisome findings. We will likely treat the patient for pneumonia and have him follow-up with his regular care provider sometime by the end of the week to make sure his symptoms are improving as expected. Departure - Departure Time of Disposition: 19:20 Disposition: Home, Self-Care 01 Condition: Good Clinical Impression: Pneumonia Qualifiers: Pneumonia type: due to unspecified organism Laterality: bilateral Lung location : lower lobe of lung Qualified Code(s): J18.9 - Pneumonia, unspecified organism Instructions: Community-Acquired Pneumonia, Adult, [id number] Referrals: Saleem Guillermo Jr, MD [Primary Care Provider] - Forms: ED Department Discharge Additional Instructions: You were evaluated in the ED today for your chest pain. You had laboratory, EKG and chest x-ray done at today's visit, and this demonstrated that you have a bilateral pneumonia and both lower lobes of your lungs. You will be started on levofloxacin, 500 mg for 10 days, highly and strongly recommend you obtain a follow-up appoint with your primary care provider in 10 days time to make sure that your symptoms are getting better as expected. Please return to the ER at any time if symptoms should change or worsen. Sepsis Event Note - Evaluation Sepsis Screening Result: No Definite Risk - Focused Exam Vital Signs: Vital Signs Temp Pulse Resp BP Pulse Ox 01/05/20 17:41 97.3 F 68 16 150/72 H 97 Date Exam was Performed: 01/05/20 Time Exam was Performed: 19:11 - My Orders Last 24 Hours: My Active Orders 01/05/20 17:44 EKG Documentation Completion [RC] STAT Chest 2V [CR] Stat COMPREHENSIVE METABOLIC PN,CMP [CHEM] Stat MAGNESIUM [CHEM] Stat PRO B-TYPE NATRIUR PEPT,BNPPRO [CHEM] Stat TROPONIN I [CHEM] Stat - Assessment/Plan Last 24 Hours: My Active Orders 01/05/20 17:44 EKG Documentation Completion [RC] STAT Chest 2V [CR] Stat COMPREHENSIVE METABOLIC PN,CMP [CHEM] Stat MAGNESIUM [CHEM] Stat PRO B-TYPE NATRIUR PEPT,BNPPRO [CHEM] Stat TROPONIN I [CHEM] Stat
--- NOTE | 2020-01-05 19:11 | CR ---
Chest: 2 views of the chest were obtained. Comparison: Previous chest x-rays of 09/30/18 and 09/20/18. Increasing parenchymal change is noted within both lung bases. Findings most likely represent superimposed pneumonia superimposed on chronic change. Upper lungs are clear. Heart size is normal. Tortuous thoracic aorta is seen. Diaphragms are flattened on the lateral view. Impression: 1. Increasing parenchymal change within both lung bases. As mentioned above, findings most likely represent acute pneumonia superimposed upon chronic change. 2. Possible emphysematous change. Diagnostic code #3 This report was dictated in MDT
[2020-01-05] MEDS ORDERED: Levofloxacin 500 MG Tab PO ONE (19:32)
== END 2020-01-05 20:46 | disposition home or self-care (01) ==
LOC: SUPCPDRO 17:35 → JD.ED 17:35
DX: J18.9 Pneumonia, unspecified organism (principal); E78.00 Pure hypercholesterolemia, unspecified; I10 Essential (primary) hypertension; I25.2 Old myocardial infarction; J44.9 Chronic obstructive pulmonary disease, unspecified; K21.9 Gastro-esophageal reflux disease without esophagitis; E11.9 Type 2 diabetes mellitus without complications; Z88.8 Allergy status to other drugs, medicaments and biological substances; Z88.6 Allergy status to analgesic agent; Z88.5 Allergy status to narcotic agent; Z91.013 Allergy to seafood; Z79.02 Long term (current) use of antithrombotics/antiplatelets; Z79.899 Other long term (current) drug therapy; Z79.4 Long term (current) use of insulin; Z79.01 Long term (current) use of anticoagulants
CPT/HCPCS: 36415; 71046; 80053; 83735; 83880; 84484; 85007; 85027; 85610; 85730; 93005; 99285; A9270; 93010; 99283

== ENCOUNTER 2020-01-17 18:13 | Emergency (ER) | payer MEDICARE, MEDICAID ==
[2020-01-17 18:20] VITALS: BP 200/80; PULSE 70
[2020-01-17] MEDS ORDERED: Sodium Chloride 0.9% 10 ML Syringe FLUSH PRN (18:44)
[2020-01-17] MEDS ORDERED: Aspirin 81 MG Tab.Chew PO ONE (18:56)
[2020-01-17] MEDS ORDERED: Alum Hydrox/Mag Hydrox/Simeth 30 ML, Lidocaine 2% 15 ML PO ONE ×2 (18:57)
--- NOTE | 2020-01-17 19:00 | EDM.PDOC ---
ED HPI GENERAL MEDICAL PROBLEM - General Chief Complaint: Chest Pain Stated Complaint: [facility] Time Seen by Provider: 01/17/20 18:44 Source of Information: Reports: Patient History Limitations: Reports: No Limitations - History of Present Illness INITIAL COMMENTS - FREE TEXT/NARRATIVE: Patient is a 79-year-old male who presents to the emergency department with complaints of midsternal burning pain in his chest. Onset of symptoms approximately 1 hour ago. He was not exerting himself or partaking in any strenuous activity that onset of symptoms. He denies any shortness of breath or diaphoresis with this. Pain does not radiate anywhere. He feels that it may be related to him eating a tangerine and taking a pill at the same time. He has not taken any [id number] medications for treatment of the pain. Patient has a past medical history significant for hypertension, SC with stents , and COPD with home oxygen 2 L via nasal cannula. Chest Pain Score (Numeric/FACES): 8 - Related Data Allergies Allergy/AdvReac Type Severity Reaction Status Date / Time glipizide [From Glucotrol] Allergy Other Verified 01/17/20 18:20 ibuprofen Allergy Other Verified 01/17/20 18:20 metformin Allergy Other Verified 01/17/20 18:20 pioglitazone [From Actos] Allergy Other Verified 01/17/20 18:20 codeine AdvReac Nausea and Verified 01/17/20 18:20 Vomiting fish oil AdvReac Nausea and Verified 01/17/20 18:20 Vomiting Home Meds: Home Meds Clopidogrel [Plavix] 75 mg PO DAILY 03/05/14 [History] Isosorbide Mononitrate [Imdur] 120 mg PO DAILY 03/05/14 [History] Nitroglycerin [Nitrostat] 0.4 mg SL ASDIRECTED PRN 03/05/14 [History] Polyethylene Glycol 1000 [Polyethylene Glycol] 1 scoop PO ASDIRECTED 03/05/14 [ History] Acetaminophen [Acetaminophen Extra Strength] 1,000 mg PO BID PRN 10/15/14 [ History] Insulin Aspart [Novolog Flexpen] 17 unit SQ TIDAC 10/15/14 [History] Ranolazine [Ranexa] 500 mg PO BID 12/28/14 [History] Fluticasone Propionate [Flonase] 2 spray NS DAILY 03/30/16 [History] Pantoprazole [ProTONIX] 40 mg PO DAILY 03/30/16 [History] Budesonide [Pulmicort] 0.25 mg INH BID 06/30/16 [History] Furosemide [Lasix] 40 mg PO DAILY 06/30/16 [History] Levothyroxine Sodium [Synthroid] 50 mcg PO DAILY 06/30/16 [History] Montelukast [Singulair] 10 mg PO BEDTIME 06/30/16 [History] Ondansetron [Zofran ODT] 4 mg PO TID PRN 06/30/16 [History] Rosuvastatin [Crestor] 20 mg PO DAILY 06/30/16 [History] Tamsulosin [Flomax] 0.8 mg PO BEDTIME 06/30/16 [History] Gabapentin [Neurontin] 300 mg PO BID 06/17/17 [History] Umeclidinium [place] [Incruse Ellipta*] 62.5 mcg IH DAILY 06/17/17 [History] captopriL [Captopril] 50 mg PO BIDAC 06/17/17 [History] Apixaban [Eliquis] 5 mg PO BID 08/28/17 [History] Insulin Glargine,Hum.Rec.Anlog [Basaglar Kwikpen U-100] 45 units SQ BID [History] Triamcinolone Acetonide [Triamcinolone Acetonide 0.1% Crm] 1 applic TOP DAILY PRN 08/29/17 [History] Metoprolol Tartrate [Lopressor] 50 mg PO BID #60 tablet 09/01/17 [Rx] Arformoterol [Brovana] 15 mcg NEB BID 01/27/18 [History] Gabapentin [Neurontin] 100 mg PO BID 01/27/18 [History] Mupirocin Calcium [Mupirocin] 1 applic TOP BID 01/27/18 [History] ALPRAZolam [Xanax] 0.25 mg PO BID PRN 09/30/18 [History] Albuterol [Ventolin HFA] 2 puff INH QID PRN 09/30/18 [History] Benzonatate 100 mg PO TID 09/30/18 [History] Dextran/Hypromellose/Glycerin [Genteal Tears 0.1%-0.2%-0.3%] 1 drop EYEBOTH BEDTIME 09/30/18 [History] Insulin Aspart [NovoLOG] 24 units SUBCUT ASDIRECTED 09/30/18 [History] Ofloxacin [Ocuflox 0.3% Ophth Soln] 5 drop EARBOTH BID 09/30/18 [History] Phenol [Chloraseptic] 1 spray PO Q2HR PRN 09/30/18 [History] Promethazine HCl/Codeine [Prometh-Codein 6.25-10 mg/5 ml] 10 ml PO Q8HR PRN 01/11 [History] lamoTRIgine [Lamotrigine] 50 mg PO BEDTIME 09/30/18 [History] Benzonatate 200 mg PO TID PRN 10/01/18 [History] Calcium Carb/Magnesium Hydrox [Antacid Chewable Tablet] 1,000 mg PO QID PRN 02/11 [History] Carboxymethylcellulose Sodium [Refresh Tears 0.5%] 1 drop EYEBOTH QID 10/01/18 [ History] Cyanocobalamin (Vitamin B-12) [Cyanocobalamin Injection] 1,000 mcg SUBCUT ASDIRECTED 10/01/18 [History] Naphazoline HCl/Pheniramine [Opcon-A Eye Drops] 1 drop EYEBOTH DAILY 10/01/18 [ History] Cholecalciferol (Vitamin D3) [Vitamin D3] 5,000 unit PO BEDTIME 10 Days #10 tablet 10/03/18 [Rx] Ferrous Sulfate [Slow Release Iron] 160 mg PO DAILY 10 Days #10 tab.er 10/03/18 [Rx] Saccharomyces Boulardii [Florastor] 250 mg PO BID #40 cap 10/03/18 [Rx] amLODIPine Besylate [Norvasc] 10 mg PO BEDTIME #10 tablet 10/03/18 [Rx] cephALEXin [Keflex] 500 mg PO Q12H 6 Days #6 cap 10/06/18 [Rx] predniSONE 10 mg PO BIDMEALS tablet 10/06/18 [Rx] levoFLOXacin [Levaquin] 500 mg PO DAILY #10 tab 01/05/20 [Rx] Past Medical History HEENT History: Reports: Impaired Vision Other HEENT History: wears glasses Cardiovascular History: Reports: High Cholesterol, Hypertension, SC Respiratory History: Reports: COPD, SOB, Other (See Below) Other Respiratory History: emphysema Gastrointestinal History: Reports: GERD Musculoskeletal History: Reports: Back Pain, Chronic, Osteoarthritis Neurological History: Reports: Headaches, Chronic Other Neuro History: Stroke in 1971 Endocrine/Metabolic History: Reports: Diabetes, Type II Other Hematologic History: hypomagnesemia Dermatologic History: Reports: Other (See Below) Other Dermatologic History: seborrheic keratosis - Infectious Disease History Infectious Disease History: Reports: Influenza, Measles - Past Surgical History Cardiovascular Surgical History: Reports: Coronary Artery Stent GI Surgical History: Reports: Colonoscopy Social & Family History - Family History Family Medical History: Noncontributory - Tobacco Use Smoking Status *Q: Never Smoker - Caffeine Use Caffeine Use: Reports: Coffee, Tea Other Caffeine Use: states he has one every once in awhile when he feels like it. - Living Situation & Occupation Living situation: Reports: Single Occupation: Retired ED ROS GENERAL - Review of Systems Review Of Systems: Comprehensive ROS is negative, except as noted in HPI. ED EXAM, GENERAL - Physical Exam Exam: See Below Exam Limited By: No Limitations General Appearance: Alert, WD/WN, No Apparent Distress Respiratory/Chest: No Respiratory Distress, Lungs Clear, Normal Breath Sounds, No Accessory Muscle Use, Chest Non-Tender Cardiovascular: Normal Peripheral Pulses, Regular Rate, Rhythm, No Edema, No Gallop, No JVD, No Murmur, No Rub GI/Abdominal: Normal Bowel Sounds, Soft, No Organomegaly, No Distention, No Abnormal Bruit, No Mass, Tender (Mild epigastric) Extremities: Normal Inspection, Normal Range of Motion, Non-Tender, Normal Capillary Refill, No Pedal Edema Neurological: Alert, Oriented, CN II-XII Intact, Normal Cognition, Normal Gait, Normal Reflexes, No Motor/Sensory Deficits Psychiatric: Normal Affect, Normal Mood Skin Exam: Warm, Dry, Intact, Normal Color, No Rash EKG INTERPRETATION EKG Date: 01/17/20 Time: 18:47 Rhythm: NSR Rate (Beats/Min): 66 [place]: Normal P-Wave: Present QRS: Other (Incomplete left bundle branch block) ST-T: Normal QT: Normal Course - Vital Signs Last Recorded V/S: Last Vital Signs Temp 97.9 F 01/17/20 18:18 Pulse 70 01/17/20 18:18 Resp 14 01/17/20 18:18 BP 200/80 H 01/17/20 18:18 Pulse Ox 100 01/17/20 18:18 - Orders/Labs/Meds Orders: Active Orders 24 hr Category Date Time Status EKG Documentation Completion [RC] STAT Care 01/17/20 18:45 Active Peripheral IV Care [RC] . DIRECTED Care 01/17/20 18:45 Active Chest 2V [CR] Stat Exams 01/17/20 18:48 Taken Peripheral IV Insertion Adult [OM.PC] Stat Oth 01/17/20 18:44 Ordered Labs: Laboratory Tests 01/17/20 01/17/20 01/17/20 Range/Units 18:30 18:30 18:48 WBC 6.44 (4.23-9.07) K/mm3 RBC 3.60 L (4.63-6.08) M/mm3 Hgb 10.2 L (13.7-17.5) gm/dl Hct 33.5 L (40.1-51.0) % MCV 93.1 H (79.0-92.2) fl MCH 28.3 (25.7-32.2) pg MCHC 30.4 L (32.2-35.5) g/dl RDW Std Deviation 46.9 H (35.1-43.9) fL Plt Count 143 L (163-337) K/mm3 MPV 10.7 (9.4-12.3) fl Neut % (Auto) 76.7 H (34.0-67.9) % Lymph % (Auto) 11.6 L (21.8-53.1) % [place]inger % (Auto) 9.2 (5.3-12.2) % Eos % (Auto) 1.7 (0.8-7.0) Baso % (Auto) 0.2 (0.1-1.2) % Neut # (Auto) 4.94 (1.78-5.38) K/mm3 Lymph # (Auto) 0.75 L (1.32-3.57) K/mm3 [place]inger # (Auto) 0.59 (0.30-0.82) K/mm3 Eos # (Auto) 0.11 (0.04-0.54) K/mm3 Baso # (Auto) 0.01 (0.01-0.08) K/mm3 Sodium 143 (136-145) mEq/L Potassium 4.1 (3.5-5.1) mEq/L Chloride 103 (98-107) mEq/L Carbon Dioxide 35 H (21-32) mEq/L Anion Gap 9.1 (5-15) BUN 26 H (7-18) mg/dL Creatinine 2.1 H (0.7-1.3) mg/dL Est Cr Clr Drug Dosing 34.09 mL/min Estimated GFR (MDRD) 31 (>60) mL/min BUN/Creatinine Ratio 12.4 L (14-18) Glucose 226 H (83-115) mg/dL Calcium 8.5 (8.5-10.1) mg/dL Total Bilirubin 0.5 (0.2-1.0) mg/dL AST 9 L (15-37) U/L ALT 14 L (16-63) U/L Alkaline Phosphatase 69 (46-116) U/L Troponin I 0.039 (0.00-0.056) ng/mL NT-Pro-B Natriuret Pep 354 (0-450) pg/mL Total Protein 6.4 (6.4-8.2) g/dl Albumin 3.0 L (3.4-5.0) g/dl Globulin 3.4 gm/dL Albumin/Globulin Ratio 0.9 L (1-2) Meds: Medications Discontinued Medications Generic Name Dose Route Start Last Admin Trade Name Freq PRN Reason Stop Dose Admin Aspirin 324 mg 01/17/20 18:56 01/17/20 19:06 Aspirin PO 01/17/20 18:57 324 mg ONETIME ONE Administration Al Hydroxide/Mg Hydroxide 30 0 ml 01/17/20 18:57 01/17/20 19:06 ml/ Lidocaine HCl 15 ml PO 01/17/20 18:58 45 ml ONETIME ONE Administration Sodium Chloride 10 ml 01/17/20 18:44 01/17/20 19:12 Saline Flush FLUSH 10 ml ASDIRECTED PRN Administration Keep Vein Open - Re-Assessments/Exams Free Text/Narrative Re-Assessment/Exam: 01/17/20 19:37 Otology was significant from a hemoglobin low at 10.2, CO2 high at 35, BUN elevated at 2.6, creatinine elevated 2.1, glucose 226.. Troponin was negative. KG was negative for any acute ischemia. Chest x-ray was negative for any acute abnormalities. There is some haziness in the right lower lobe and a bit in the left lower lobe, however he was just recently treated for pneumonia with Levaquin. These may be remnants of that previous pneumonia. He is having no active symptoms and WBC is found to be normal. Patient's chest pain did resolve with the GI cocktail. He is hemodynamically stable. Last blood pressure was 168/82. He is oxygenating 95% on his home oxygen of 2 L. Discussed with him that while the likely cause of his pain was his esophagus, it would be recommended that he stay to have a second troponin checked in a couple hours. He declined this and stated he would rather go home. He states that if he has any worsening symptoms, he will return. Discharge instructions as documented. Departure - Departure Time of Disposition: 19:38 Disposition: Home, Self-Care 01 Condition: Good Clinical Impression: Atypical chest pain Instructions: Nonspecific Chest Pain, Adult Referrals: PCP,Unknown [Ordering Only Provider] - Forms: ED Department Discharge Additional Instructions: You were seen in the emergency department for acute onset of mid chest pain after eating an orange and taking a pill. Your work-up included blood work, chest x-ray, and an EKG of your heart. The findings of these were found to be stable from your previous visits. You received a GI cocktail while in the emergency department which you state did resolve your symptoms. Based on this, it is likely that the cause your pain was esophagitis aggravated by the acidity of the orange and the medication you took. It was recommended that you stay for repeat troponin in a couple hours, however you declined. If you should experience a recurrence of this chest pain or develop any new or worsening symptoms of concern, please do not hesitate to return to the emergency department. Sepsis Event Note - Evaluation Sepsis Screening Result: No Definite Risk - Focused Exam Vital Signs: Vital Signs Temp Pulse Resp BP Pulse Ox 01/17/20 18:18 97.9 F 70 14 200/80 H 100 Date Exam was Performed: 01/17/20 Time Exam was Performed: 21:51 - My Orders Last 24 Hours: My Active Orders 01/17/20 18:44 Peripheral IV Insertion Adult [OM.PC] Stat 01/17/20 18:45 EKG Documentation Completion [RC] STAT Peripheral IV Care [RC] . DIRECTED 01/17/20 18:48 Chest 2V [CR] Stat - Assessment/Plan Last 24 Hours: My Active Orders 01/17/20 18:44 Peripheral IV Insertion Adult [OM.PC] Stat 01/17/20 18:45 EKG Documentation Completion [RC] STAT Peripheral IV Care [RC] . DIRECTED 01/17/20 18:48 Chest 2V [CR] Stat
--- NOTE | 2020-01-18 09:41 | CR ---
Chest: 2 views of the chest were obtained. Comparison: Previous chest x-ray of 01/13/20 Continuing parenchymal density within the right lung base is seen. This has slight masslike configuration. Additional density is noted within the left lung base which is fairly stable and most likely represents scarring. Heart size is normal. Tortuous thoracic aorta is seen. Bony structures are unremarkable. Impression: 1. Masslike density within the right lung base. 2. Possible scar within the left lung base. 3. Chest CT strongly recommended to further evaluate. Diagnostic code #9 Study was dictated in MDT
== END 2020-01-17 19:53 | disposition home or self-care (01) ==
LOC: JD.ED 18:13
DX: R07.89 Other chest pain (principal); D64.9 Anemia, unspecified; E78.00 Pure hypercholesterolemia, unspecified; I10 Essential (primary) hypertension; I25.2 Old myocardial infarction; J44.9 Chronic obstructive pulmonary disease, unspecified; K21.9 Gastro-esophageal reflux disease without esophagitis; E11.9 Type 2 diabetes mellitus without complications; Z86.73 Personal history of transient ischemic attack (TIA), and cerebral infarction without residual deficits; Z88.8 Allergy status to other drugs, medicaments and biological substances; Z88.6 Allergy status to analgesic agent; Z88.5 Allergy status to narcotic agent; Z91.048 Other nonmedicinal substance allergy status; Z79.899 Other long term (current) drug therapy; Z79.02 Long term (current) use of antithrombotics/antiplatelets; Z79.4 Long term (current) use of insulin
CPT/HCPCS: 36415; 71046; 80053; 83880; 84484; 85025; 93005; 99285; A9270

== ENCOUNTER 2020-05-05 06:59 | Emergency (ER) | payer MEDICARE, MEDICAID ==
[2020-05-05] MEDS ORDERED: Sodium Chloride 0.9% 10 ML Syringe FLUSH PRN (07:14)
[2020-05-05 07:22] VITALS: BP 184/75; PULSE 65
--- NOTE | 2020-05-05 07:27 | EDM.PDOC ---
ED HPI GENERAL MEDICAL PROBLEM - General Chief Complaint: Neuro Symptoms/Deficits Stated Complaint: [facility] Time Seen by Provider: 05/05/20 07:13 Source of Information: Reports: Patient, EMS History Limitations: Reports: No Limitations - History of Present Illness INITIAL COMMENTS - FREE TEXT/NARRATIVE: The patient presents with right sided numbness and weakness. This has been going on for about 3 days. He cannot recall what time of day it started 3 days ago or if he woke up with it. This started out as numbness and it has progressed. He saw his doctor yesterday and at that time he had just some mild numbness. He went home and it got worse until this morning when he woke up and he had more numbness and weakness to the right arm and leg. He says he does have a headache for the past few days. He has been taking more tylenol. He has no fever, chills, chest pain or shortness of breath. He does have a slight cough and he is short of breath. He currently has lung cancer. He was on chemo but his last treatment did not go well. He says they are on hold right now. He has no abdominal pain, nausea or vomiting. He does have some slurred speech and per EMS some trouble finding his words. Onset: Gradual Duration: Day(s): (3) Location: Reports: Head Quality: Reports: Ache Severity: Mild Improves with: Reports: None Worsens with: Reports: None Associated Symptoms: Reports: Cough, Headaches, Shortness of Breath. Denies: Chest Pain, Fever/Chills, Nausea/Vomiting Headache Pain Score (Numeric/FACES): 9 - Related Data Allergies Allergy/AdvReac Type Severity Reaction Status Date / Time glipizide [From Glucotrol] Allergy Other Verified 05/05/20 07:25 ibuprofen Allergy Other Verified 05/05/20 07:25 metformin Allergy Other Verified 05/05/20 07:25 pioglitazone [From Actos] Allergy Other Verified 05/05/20 07:25 codeine AdvReac Nausea and Verified 05/05/20 07:25 Vomiting fish oil AdvReac Nausea and Verified 05/05/20 07:25 Vomiting Home Meds: Home Meds Nitroglycerin [Nitrostat] 0.4 mg SL ASDIRECTED PRN 03/05/14 [History] Acetaminophen [Acetaminophen Extra Strength] 1,000 mg PO BID PRN 10/15/14 [History] Budesonide [Pulmicort] 0.25 mg INH BID 06/30/16 [History] Montelukast [Singulair] 10 mg PO BEDTIME 06/30/16 [History] Gabapentin [Neurontin] 100 mg PO BID 01/27/18 [History] Albuterol [Ventolin HFA] 2 puff INH QID PRN 09/30/18 [History] Calcium Carb/Magnesium Hydrox [Antacid Chewable Tablet] 1,000 mg PO DAILY PRN 10/01/18 [History] Apixaban [Eliquis] 2.5 mg PO BID 05/05/20 [History] Arformoterol [Brovana] 1 inh INH BID 05/05/20 [History] Aspirin 81 mg PO DAILY 05/05/20 [History] Benzonatate [Tessalon Perle] 100 - 200 mg PO Q4HR PRN 05/05/20 [History] Carboxymethylcellulose Sodium [Refresh Liquigel 1%] 1 dose EYEBOTH QID 05/05/20 [History] Clopidogrel Bisulfate [Plavix] 75 mg PO DAILY 05/05/20 [History] Diphenhyd/Lidocaine/Nystatin [Magic Mouthwash] 30 ml PO QID 05/05/20 [History] Fluticasone Propionate [Flonase] 2 spray NASBOTH DAILY 05/05/20 [History] Furosemide [Lasix] 40 mg PO DAILY 05/05/20 [History] Incruse Ellipta 62.5mcg/Inh 1 puff INH BID 05/05/20 [History] Insulin Glargine,Hum.Rec.Anlog [Basaglar Kwikpen U-100] 40 units SQ BID 05/05/20 [History] Insulin Regular, Human [Novolin R Flexpen] 14 - 26 unit SQ TID 05/05/20 [History] Ipratropium [Atrovent HFA] 2 puff INH TID 05/05/20 [History] Levothyroxine [Synthroid] 50 mg PO DAILY 05/05/20 [History] Metoprolol Tartrate 50 mg PO BID 05/05/20 [History] Mupirocin [Centany] 1 dose TOP BID 05/05/20 [History] Omeprazole 40 mg PO DAILY 05/05/20 [History] Ondansetron [Zofran] 4 mg PO Q6HR PRN 05/05/20 [History] Promethazine HCl/Codeine [Prometh-Codein 6.25-10 mg/5 ml] 10 ml PO Q8HR PRN 05/05/20 [History] Ranolazine [Ranolazine ER] 500 mg PO BID 05/05/20 [History] Sodium Chloride/Aloe Vera [[place] Saline Nasal Gel [place]] 1 - 2 spray GISEL TID 05/05/20 [History] Tamsulosin [Flomax] 0.8 mg PO BEDTIME 05/05/20 [History] Triamcinolone Acetonide [Triamcinolone Acetonide 0.1% Crm] 1 dose TOP DAILY 05/05/20 [History] captopriL [Capoten] 50 mg PO BID 05/05/20 [History] dexAMETHasone [Dexamethasone] 2 mg PO ASDIRECTED 05/05/20 [History] diazePAM [Valium] 2 mg PO Q6HR PRN 05/05/20 [History] guaiFENesin [Mucinex] 600 mg PO BID 05/05/20 [History] polyethylene glycoL 3350 [Clearlax] 17 gm PO ASDIRECTED 05/05/20 [History] Past Medical History HEENT History: Reports: Impaired Vision Other HEENT History: wears glasses Cardiovascular History: Reports: High Cholesterol, Hypertension, IN Respiratory History: Reports: COPD, SOB, Other (See Below) Other Respiratory History: emphysema Gastrointestinal History: Reports: GERD Musculoskeletal History: Reports: Back Pain, Chronic, Osteoarthritis Neurological History: Reports: Headaches, Chronic Other Neuro History: Stroke in 1971 Endocrine/Metabolic History: Reports: Diabetes, Type II Other Hematologic History: hypomagnesemia Dermatologic History: Reports: Other (See Below) Other Dermatologic History: seborrheic keratosis - Infectious Disease History Infectious Disease History: Reports: Influenza, Measles - Past Surgical History Cardiovascular Surgical History: Reports: Coronary Artery Stent GI Surgical History: Reports: Colonoscopy Social & Family History - Family History Family Medical History: Noncontributory - Caffeine Use Caffeine Use: Reports: Coffee, Tea Other Caffeine Use: states he has one every once in awhile when he feels like it. - Living Situation & Occupation Living situation: Reports: Single Occupation: Retired ED ROS GENERAL - Review of Systems Review Of Systems: See Below Constitutional: Reports: No Symptoms HEENT: Reports: No Symptoms Respiratory: Reports: Shortness of Breath, Cough Cardiovascular: Reports: No Symptoms Endocrine: Reports: No Symptoms GI/Abdominal: Reports: No Symptoms : Reports: No Symptoms Musculoskeletal: Reports: No Symptoms Neurological: Reports: Headache ED EXAM, NEURO - Physical Exam Exam: See Below Exam Limited By: No Limitations General Appearance: Alert, No Apparent Distress Ears: Normal External Exam Nose: Normal Inspection Head Exam: Atraumatic, Normocephalic Neck: Normal Inspection Respiratory/Chest: No Respiratory Distress, Lungs Clear, Normal Breath Sounds Cardiovascular: Regular Rate, Rhythm, No Edema, No Murmur GI/Abdominal: Soft, Non-Tender, No Organomegaly, No Mass Neurological: Alert, Oriented x 3, Other (Moderate right arm and leg weakness. Mild slurred speech.) EKG INTERPRETATION EKG Date: 05/05/20 Time: 07:44 Rhythm: NSR Rate (Beats/Min): 64 [place]: Normal P-Wave: Present QRS: Normal ST-T: Normal QT: Normal EKG Interpretation Comments: Q waves in anterior leads Course - Vital Signs Last Recorded V/S: Last Vital Signs Temp 96.9 F 05/05/20 07:10 Pulse 65 05/05/20 07:10 Resp 14 05/05/20 07:10 BP 184/75 H 05/05/20 07:10 Pulse Ox 96 05/05/20 07:52 - Orders/Labs/Meds Orders: Active Orders 24 hr Category Date Time Status Cardiac Monitoring [RC] . DIRECTED Care 05/05/20 07:14 Active EKG Documentation Completion [RC] STAT Care 05/05/20 07:14 Active Oxygen Therapy [RC] PRN Care 05/05/20 07:14 Active Peripheral IV Care [RC] . DIRECTED Care 05/05/20 07:14 Active Head wo Cont [CT] Routine Exams 05/05/20 Taken Sodium Chloride 0.9% [Normal Saline] 1,000 ml Med 05/05/20 09:30 Active IV ASDIRECTED Sodium Chloride 0.9% [Saline Flush] Med 05/05/20 07:14 Active 10 ml FLUSH ASDIRECTED PRN Sodium Chloride 0.9% [Saline Flush] Med 05/05/20 09:00 Active 20 ml FLUSH ASDIRECTED Peripheral IV Insertion Adult [OM.PC] Stat Oth 05/05/20 07:14 Ordered Medication Orders Sodium Chloride (Normal Saline) 1,000 mls @ 150 mls/hr IV ASDIRECTED GUANAKO Last Admin: 05/05/20 09:35 Dose: 150 mls/hr Documented by: GUTIERREZ Sodium Chloride (Saline Flush) 10 ml FLUSH ASDIRECTED PRN PRN Reason: Keep Vein Open Last Admin: 05/05/20 08:14 Dose: 10 ml Documented by: FRANCA Sodium Chloride (Saline Flush) 20 ml FLUSH ASDIRECTED GUANAKO Last Admin: 05/05/20 09:07 Dose: 20 ml Documented by: LENI Labs: Laboratory Tests 05/05/20 05/05/20 05/05/20 Range/Units 07:14 07:14 07:14 WBC 5.13 (4.23-9.07) K/mm3 RBC 3.56 L (4.63-6.08) M/mm3 Hgb 10.3 L (13.7-17.5) gm/dl Hct 33.9 L (40.1-51.0) % MCV 95.2 H (79.0-92.2) fl MCH 28.9 (25.7-32.2) pg MCHC 30.4 L (32.2-35.5) g/dl RDW Std Deviation 58.2 H (35.1-43.9) fL Plt Count 157 L (163-337) K/mm3 MPV 10.3 (9.4-12.3) fl Neut % (Auto) 79.7 H (34.0-67.9) % Lymph % (Auto) 8.8 L (21.8-53.1) % Cecil % (Auto) 8.2 (5.3-12.2) % Eos % (Auto) 2.1 (0.8-7.0) Baso % (Auto) 0.2 (0.1-1.2) % Neut # (Auto) 4.09 (1.78-5.38) K/mm3 Lymph # (Auto) 0.45 L (1.32-3.57) K/mm3 Cecil # (Auto) 0.42 (0.30-0.82) K/mm3 Eos # (Auto) 0.11 (0.04-0.54) K/mm3 Baso # (Auto) 0.01 (0.01-0.08) K/mm3 PT 10.6 (9.7-11.7) SECONDS INR 0.99 APTT 26 (22-31) SECONDS Sodium 138 (136-145) mEq/L Potassium 4.1 (3.5-5.1) mEq/L Chloride 99 (98-107) mEq/L Carbon Dioxide 33 H (21-32) mEq/L Anion Gap 10.1 (5-15) BUN 23 H (7-18) mg/dL Creatinine 1.7 H (0.7-1.3) mg/dL Est Cr Clr Drug Dosing 41.42 mL/min Estimated GFR (MDRD) 39 (>60) mL/min BUN/Creatinine Ratio 13.5 L (14-18) Glucose 211 H (83-115) mg/dL Calcium 9.0 (8.5-10.1) mg/dL Total Bilirubin 0.5 (0.2-1.0) mg/dL AST 12 L (15-37) U/L ALT 16 (16-63) U/L Alkaline Phosphatase 79 (46-116) U/L Troponin I < 0.017 (0.00-0.056) ng/mL Total Protein 6.9 (6.4-8.2) g/dl Albumin 3.1 L (3.4-5.0) g/dl Globulin 3.8 gm/dL Albumin/Globulin Ratio 0.8 L (1-2) COVID-19 ([facility]) (NEGATIVE) 05/05/20 Range/Units 07:17 WBC (4.23-9.07) K/mm3 RBC (4.63-6.08) M/mm3 Hgb (13.7-17.5) gm/dl Hct (40.1-51.0) % MCV (79.0-92.2) fl MCH (25.7-32.2) pg MCHC (32.2-35.5) g/dl RDW Std Deviation (35.1-43.9) fL Plt Count (163-337) K/mm3 MPV (9.4-12.3) fl Neut % (Auto) (34.0-67.9) % Lymph % (Auto) (21.8-53.1) % Cecil % (Auto) (5.3-12.2) % Eos % (Auto) (0.8-7.0) Baso % (Auto) (0.1-1.2) % Neut # (Auto) (1.78-5.38) K/mm3 Lymph # (Auto) (1.32-3.57) K/mm3 Cecil # (Auto) (0.30-0.82) K/mm3 Eos # (Auto) (0.04-0.54) K/mm3 Baso # (Auto) (0.01-0.08) K/mm3 PT (9.7-11.7) SECONDS INR APTT (22-31) SECONDS Sodium (136-145) mEq/L Potassium (3.5-5.1) mEq/L Chloride (98-107) mEq/L Carbon Dioxide (21-32) mEq/L Anion Gap (5-15) BUN (7-18) mg/dL Creatinine (0.7-1.3) mg/dL Est Cr Clr Drug Dosing mL/min Estimated GFR (MDRD) (>60) mL/min BUN/Creatinine Ratio (14-18) Glucose (83-115) mg/dL Calcium (8.5-10.1) mg/dL Total Bilirubin (0.2-1.0) mg/dL AST (15-37) U/L ALT (16-63) U/L Alkaline Phosphatase (46-116) U/L Troponin I (0.00-0.056) ng/mL Total Protein (6.4-8.2) g/dl Albumin (3.4-5.0) g/dl Globulin gm/dL Albumin/Globulin Ratio (1-2) COVID-19 ([facility]) Negative (NEGATIVE) Meds: Medications Generic Name Dose Route Start Last Admin Trade Name Freq PRN Reason Stop Dose Admin Sodium Chloride 1,000 mls @ 150 mls/hr 05/05/20 09:30 05/05/20 09:35 Normal Saline IV 150 mls/hr ASDIRECTED GUANAKO Administration Sodium Chloride 10 ml 05/05/20 07:14 05/05/20 08:14 Saline Flush FLUSH 10 ml ASDIRECTED PRN Administration Keep Vein Open Sodium Chloride 20 ml 05/05/20 09:00 05/05/20 09:07 Saline Flush FLUSH 20 ml ASDIRECTED GUANAKO Administration Discontinued Medications Generic Name Dose Route Start Last Admin Trade Name Diana REYES Reason Stop Dose Admin Gadobenate Dimeglumine 20 ml 05/05/20 08:52 05/05/20 09:07 Multihance IVPUSH 05/05/20 08:53 20 ml ONETIME ONE Administration - Re-Assessments/Exams Free Text/Narrative Re-Assessment/Exam: 05/05/20 09:51 A stroke alert was called. The patient's last time known well was 3 days ago and he could not give me a time. He has moderate weakness to the right arm and leg. His NIH score is 7. He went to CT right away and it showed vasogenic edema within the left centrum semiovale with mass effect upon the adjacent cere bral sulci. Vasogenic edema within the left parietal and occipital lobes with mass effect upon the adjacent cerebral sulci. There is an expected degree of age-related atrophy and chronic white matter ischemic changes. No acute intra- axial hemorrhage appreciated. I also ordered an IV, EKG, and labs. His EKG shows NSR with no acute changes. His CXR shows density within the right lung base which appears to correlate to right lower lung mass on CT study of 01/21/20. Areas of atelectasis and scarring within the left base. Infusion port is seen. Nothing acute is otherwise seen. I have ordered an MRI of his brain. The MRI shows multiple ring-enhancing abnormalities within the left occipital, right occipital and left parietal lobes with surrounding edema. Findings have the appearance of intracranial metastatic disease. These findings are an interval change from prior MRI brain. Other senescent changes. Diffuse mucosal thickening within the mastoid sinuses which most likely is chronic. His Hgb was a little low at 10.3. His platelets are a little low at 157. His PT and PTT look good. His BUN was elevated at 23. His creatinine is elevated at 1.7. His GFR is low at 39. His glucose is elevated at 211. His troponin is negative. His COVID 19 is negative. They had to give him contrast for the MRI so I ordered IV NS at 150ml/hr. He can move his arm better. I feel he needs to go to [place] for further care. I have called [facility] in [place] and I am waiting for a call back. 05/05/20 10:10 05/05/20 10:[address] Luo and he accepted the patient. I also talked with Dr Morales and he wanted the patient to get dexamethasone 4mg every 6 hours. I will be sending him by ambulance. They are tight with beds right now so we will hold him for awhile until they call. 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, Renal insufficiency Cerebrovascular accident (CVA) Qualifiers: CVA mechanism: unspecified Qualified Code(s): I63.9 - Cerebral infarction, unspecified Lung cancer Qualifiers: Laterality: right Lung location: lower lobe of lung Qualified Code(s): C34.31 - Malignant neoplasm of lower lobe, right bronchus or lung - Discharge Information Referrals: PCP,None [Ordering Only Provider] - Forms: ED Department Discharge Sepsis Event Note (ED) - Focused Exam Vital Signs: Vital Signs Temp Pulse Resp BP Pulse Ox Pulse Ox 05/05/20 07:52 96 05/05/20 07:10 96.9 F 65 14 184/75 H 96 - My Orders Last 24 Hours: My Active Orders 05/05/20 Head wo Cont [CT] Routine 05/05/20 07:14 Cardiac Monitoring [RC] . DIRECTED EKG Documentation Completion [RC] STAT Oxygen Therapy [RC] PRN Peripheral IV Care [RC] . DIRECTED Sodium Chloride 0.9% [Saline Flush] 10 ml FLUSH ASDIRECTED PRN Peripheral IV Insertion Adult [OM.PC] Stat 05/05/20 09:00 Sodium Chloride 0.9% [Saline Flush] 20 ml FLUSH ASDIRECTED 05/05/20 09:30 Sodium Chloride 0.9% [Normal Saline] 1,000 ml IV ASDIRECTED - Assessment/Plan Last 24 Hours: My Active Orders 05/05/20 Head wo Cont [CT] Routine 05/05/20 07:14 Cardiac Monitoring [RC] . DIRECTED EKG Documentation Completion [RC] STAT Oxygen Therapy [RC] PRN Peripheral IV Care [RC] . DIRECTED Sodium Chloride 0.9% [Saline Flush] 10 ml FLUSH ASDIRECTED PRN Peripheral IV Insertion Adult [OM.PC] Stat 05/05/20 09:00 Sodium Chloride 0.9% [Saline Flush] 20 ml FLUSH ASDIRECTED 05/05/20 09:30 Sodium Chloride 0.9% [Normal Saline] 1,000 ml IV ASDIRECTED
--- NOTE | 2020-05-05 08:38 | CR ---
Chest: Portable view of the chest was obtained. Comparison: Prior chest x-ray of 10/05/[address] study of 01/21/20. Heart size is normal. Upper mediastinum is within normal limits. Right-sided infusion port is seen. Slight parenchymal density within the right lung base is seen which likely represents previous right lower lung mass as noted on chest CT of 01/21/20. Slight change within the left base is noted most likely relating to scarring and atelectasis. Lungs otherwise are grossly clear. Bony structures are grossly intact. Impression: 1. Density within the right lung base which appears to correlate to right lower lung mass seen on CT study of 01/21/20. 2. Areas of atelectasis and scarring within the left base. 3. Infusion port is seen. Nothing acute is otherwise seen. Diagnostic code #9 This report was dictated in MDT
[2020-05-05] MEDS ORDERED: Gadobenate Dimeglumine 529 MG/ML 20 ML SDV IVPUSH ONE (08:52)
[2020-05-05] MEDS ORDERED: Sodium Chloride 0.9% 10 ML Syringe FLUSH SCH (09:00)
[2020-05-05] MEDS ORDERED: Sodium Chloride 0.9% 1,000 ML IV SCH (09:30)
--- NOTE | 2020-05-05 09:32 | MR ---
MRI brain (without and with intravenous contrast) Technique: T1 sagittal; T2, T2 FLAIR, T1 and diffusion axial; T1 and T2 gradient echo coronal; postcontrast T1 axial and postcontrast T1 coronal images were obtained of the brain. Comparison: Prior head CT study of 05/05/20. Prior MRI brain of 04/02/16. Findings: Ring-enhancing abnormalities are seen within the area of edema noted on head CT study. Approximately 2 enhancing lesions within the left occipital lobe measuring 2.2 cm and 2.7 cm. Small area of enhancement is noted within the periphery of the right occipital lobe measuring 8 mm. Other smaller areas of enhancement are seen within the left parietal region. Findings have the appearance of intracranial metastasis. Areas of cytotoxic edema noted within the left parietal and occipital lobes around these metastatic lesions. Small area of edema are seen within the posterior right occipital lobe surrounding the enhancing abnormality. Areas of increased signal scattered within the periventricular and subcortical white matter compatible with small vessel ischemic demyelination change. Mild generalized atrophy is seen. Diffuse mucosal thickening seen within the mastoid sinuses. Impression: 1. Multiple ring-enhancing abnormalities within the left occipital, right occipital and left parietal lobes with surrounding edema. Findings have the appearance of intracranial metastatic disease. These findings are an interval change from prior MRI brain. 2. Other senescent change as noted above. 3. Diffuse mucosal thickening within the mastoid sinuses which most likely is chronic. Diagnostic code #9 This report was dictated in MDT
[2020-05-05] MEDS ORDERED: Dexamethasone 4 MG/ML SDV IVPUSH ONE (10:26)
[2020-05-05] MEDS ORDERED: Insulin Lispro 100 Units/ML 3 ML Vial SUBCUT ONE (10:29)
--- NOTE | 2020-05-05 14:14 | CT ---
Head CT Technique: Multiple axial sections through the brain were obtained. Intravenous contrast was not utilized. Comparison: Prior head CT exam of 06/30/16. Findings: Low density is noted within the left posterior parietal and occipital region as well as within the anterior left parietal convexity. This has the appearance of edema. This is an interval change from previous exam. Ventricles along with basal cisterns and sulci over the convexities are mildly prominent. Mild areas of diminished density are noted within the periventricular white matter compatible with small vessel ischemic demyelination change. No evidence of intracranial hemorrhage. No midline shift or mass-effect is seen. No acute calvarial findings seen on bone window settings. Visualized mastoid sinuses and visualized paranasal sinuses show nothing acute. Impression: 1. 2 areas of edema as noted above within the left brain. Findings could represent relatively acute ischemic infarcts. Other etiology for the edema cannot be excluded at this time. MRI should be considered which should include contrast. 2. Mild senescent change as noted above. Diagnostic code #9 This report was dictated in MDT I agree with preliminary report from [place], finalized on 05/05/20, 8:17 AM Central Daylight Time [facility]
== END 2020-05-05 12:05 ==
LOC: JD.ED 06:59
DX: I63.9 Cerebral infarction, unspecified (principal); C34.31 Malignant neoplasm of lower lobe, right bronchus or lung; C79.31 Secondary malignant neoplasm of brain; I10 Essential (primary) hypertension; I25.2 Old myocardial infarction; J44.9 Chronic obstructive pulmonary disease, unspecified; K21.9 Gastro-esophageal reflux disease without esophagitis; Z20.828 Contact with and (suspected) exposure to other viral communicable diseases; Z88.8 Allergy status to other drugs, medicaments and biological substances; Z88.6 Allergy status to analgesic agent; Z88.5 Allergy status to narcotic agent; Z91.048 Other nonmedicinal substance allergy status; Z79.82 Long term (current) use of aspirin; Z79.01 Long term (current) use of anticoagulants; Z79.02 Long term (current) use of antithrombotics/antiplatelets; Z79.899 Other long term (current) drug therapy; Z79.4 Long term (current) use of insulin
CPT/HCPCS: 36415; 70450; 70553; 71045; 80053; 84484; 85025; 85610; 85730; 93005; 96361; 96374; 99285; A9577; J1100; J1815; J7030; U0002; 93010

== ENCOUNTER 2020-06-25 09:16 | Emergency (ER) | payer MEDICARE, MEDICAID ==
[2020-06-25] MEDS ORDERED: Acetaminophen/oxyCODONE 325-5 MG Tab PO ONE (09:53)
--- NOTE | 2020-06-25 09:55 | EDM.PDOC ---
ED HPI GENERAL MEDICAL PROBLEM - General Chief Complaint: Upper Extremity Injury/Pain Stated Complaint: RT SHOULDER PAIN Time Seen by Provider: 06/25/20 09:42 Source of Information: Reports: Patient History Limitations: Reports: No Limitations - History of Present Illness INITIAL COMMENTS - FREE TEXT/NARRATIVE: 80-year-old male presents to the ED for evaluation of severe pain right upper anterior shoulder along the distribution of his collarbone rating down the right outer arm all the way down to his wrist. He states the pain has been there for at least 2 to 3 days. He has not yet appreciated development of a rash on his right shoulder and arm as he has chronic ecchymoses involving most of the dorsal aspect of her extensor surface of his right forearm due to chronic use of blood thinners. Currently on Eliquis 2.5 mg twice daily. The rash has the characteristic pattern of shingles. Pain is constant and made worse by touching the area. Unable to sleep last night or 2 due to severe pain. Patient has a multitude of comorbidities and is in very poor health. This includes type 2 diabetes controlled with insulin severe dependent edema and chronic congestive heart failure. Patient is already on Neurontin 1 her milligrams twice daily for neuropathic pain in his lower extremities. Patient felt that the pain in his right shoulder worsened after he was pushing himself up out of his wheelchair with his arms. Onset: Gradual Onset Date: 06/22/20 Duration: Day(s):, Getting Worse Location: Reports: Neck (She had some pain right lateral neck and superior aspect of the right shoulder that radiates down the road aspect of the shoulder all the way down to his wrist.), Upper Extremity, Right (To get his shoulder and radiating all the way down to his right wrist.) Quality: Reports: Ache, Burning, Other (He is exquisitely tender to touch) Severity: Severe (10) Improves with: Reports: None Worsens with: Reports: Other (Went of the right arm and touch.) Context: Denies: Activity, Exercise, Lifting, Sick Contact, Trauma, Other Treatments DIGITAL CONTENT PRODUCER: Reports: Other (see below) Other Treatments DIGITAL CONTENT PRODUCER: icyhot, Right Shoulder Pain Score (Numeric/FACES): 10 - Related Data Allergies Allergy/AdvReac Type Severity Reaction Status Date / Time glipizide [From Glucotrol] Allergy Other Verified 06/25/20 09:42 ibuprofen Allergy Other Verified 06/25/20 09:42 metformin Allergy Other Verified 06/25/20 09:42 pioglitazone [From Actos] Allergy Other Verified 06/25/20 09:42 codeine AdvReac Nausea and Verified 06/25/20 09:42 Vomiting fish oil AdvReac Nausea and Verified 06/25/20 09:42 Vomiting Home Meds: Home Meds Nitroglycerin [Nitrostat] 0.4 mg SL ASDIRECTED PRN 03/05/14 [History] Acetaminophen [Acetaminophen Extra Strength] 1,000 mg PO BID PRN 10/15/14 [History] Budesonide [Pulmicort] 0.25 mg INH BID 06/30/16 [History] Montelukast [Singulair] 10 mg PO BEDTIME 06/30/16 [History] Gabapentin [Neurontin] 100 mg PO BID 01/27/18 [History] Albuterol [Ventolin HFA] 2 puff INH QID PRN 09/30/18 [History] Calcium Carb/Magnesium Hydrox [Antacid Chewable Tablet] 1,000 mg PO DAILY PRN 10/01/18 [History] Apixaban [Eliquis] 2.5 mg PO BID 05/05/20 [History] Arformoterol [Brovana] 1 inh INH BID 05/05/20 [History] Aspirin 81 mg PO DAILY 05/05/20 [History] Benzonatate [Tessalon Perle] 100 - 200 mg PO Q4HR PRN 05/05/20 [History] Carboxymethylcellulose Sodium [Refresh Liquigel 1%] 1 dose EYEBOTH QID 05/05/20 [History] Clopidogrel Bisulfate [Plavix] 75 mg PO DAILY 05/05/20 [History] Diphenhyd/Lidocaine/Nystatin [Magic Mouthwash] 30 ml PO QID 05/05/20 [History] Fluticasone Propionate [Flonase] 2 spray NASBOTH DAILY 05/05/20 [History] Furosemide [Lasix] 40 mg PO DAILY 05/05/20 [History] Incruse Ellipta 62.5mcg/Inh 1 puff INH BID 05/05/20 [History] Insulin Glargine,Hum.Rec.Anlog [Basaglar Kwikpen U-100] 40 units SQ BID 05/05/20 [History] Insulin Regular, Human [Novolin R Flexpen] 14 - 26 unit SQ TID 05/05/20 [History] Ipratropium [Atrovent HFA] 2 puff INH TID 05/05/20 [History] Levothyroxine [Synthroid] 50 mg PO DAILY 05/05/20 [History] Metoprolol Tartrate 50 mg PO BID 05/05/20 [History] Mupirocin [Centany] 1 dose TOP BID 05/05/20 [History] Omeprazole 40 mg PO DAILY 05/05/20 [History] Ondansetron [Zofran] 4 mg PO Q6HR PRN 05/05/20 [History] Promethazine HCl/Codeine [Prometh-Codein 6.25-10 mg/5 ml] 10 ml PO Q8HR PRN 05/05/20 [History] Ranolazine [Ranolazine ER] 500 mg PO BID 05/05/20 [History] Sodium Chloride/Aloe Vera [[place] Saline Nasal Gel [place]] 1 - 2 spray GISEL TID 05/05/20 [History] Tamsulosin [Flomax] 0.8 mg PO BEDTIME 05/05/20 [History] Triamcinolone Acetonide [Triamcinolone Acetonide 0.1% Crm] 1 dose TOP DAILY 05/05/20 [History] captopriL [Capoten] 50 mg PO BID 05/05/20 [History] dexAMETHasone [Dexamethasone] 2 mg PO ASDIRECTED 05/05/20 [History] diazePAM [Valium] 2 mg PO Q6HR PRN 05/05/20 [History] guaiFENesin [Mucinex] 600 mg PO BID 05/05/20 [History] polyethylene glycoL 3350 [Clearlax] 17 gm PO ASDIRECTED 05/05/20 [History] Gabapentin [Neurontin] 100 mg PO TID #14 cap 06/25/20 [Rx] oxyCODONE HCl/Acetaminophen [Percocet 5-325 mg Tablet] 1 - 2 each PO Q4H PRN #24 tablet 06/25/20 [Rx] valACYclovir [Valtrex] 1,000 mg PO TID #21 tab 06/25/20 [Rx] Past Medical History HEENT History: Reports: Impaired Vision Other HEENT History: wears glasses Cardiovascular History: Reports: High Cholesterol, Hypertension, DC Respiratory History: Reports: COPD, SOB, Other (See Below) Other Respiratory History: emphysema Gastrointestinal History: Reports: GERD Musculoskeletal History: Reports: Back Pain, Chronic, Osteoarthritis Neurological History: Reports: Headaches, Chronic Other Neuro History: Stroke in 1971 Endocrine/Metabolic History: Reports: Diabetes, Type II Other Hematologic History: hypomagnesemia Dermatologic History: Reports: Other (See Below) Other Dermatologic History: seborrheic keratosis - Infectious Disease History Infectious Disease History: Reports: Influenza, Measles - Past Surgical History Cardiovascular Surgical History: Reports: Coronary Artery Stent GI Surgical History: Reports: Colonoscopy Social & Family History - Family History Family Medical History: Noncontributory - Tobacco Use Tobacco Use Status *Q: Former Tobacco User Used Tobacco, but Quit: Yes Month/Year Tobacco Last Used: 1967 - Caffeine Use Caffeine Use: Reports: Coffee Other Caffeine Use: states he has one every once in awhile when he feels like it. - Recreational Drug Use Recreational Drug Use: No - Living Situation & Occupation Living situation: Reports: Single Occupation: Retired Review of Systems - Review of Systems Review Of Systems: See Below Constitutional: Reports: Weakness (Lysed weakness.). Denies: Chills, Diaphoresis, Fever Eyes: Reports: Decreased Acuity Ears: Reports: No Symptoms Nose: Reports: No Symptoms Mouth/Throat: Reports: No Symptoms Respiratory: Reports: Shortness of Breath (Minimal exertion.), Cough. Denies: Wheezing, Pleuritic Chest Pain, Sputum (Occasional nonproductive cough.) Cardiovascular: Reports: Edema (Severe dependent edema with weeping multiple lesions from right lower extremity. Legs are dressed with bandages on a daily basis), Irregular Heart Rate (Atrial fibrillation). Denies: Chest Pain, Lightheadedness GI/Abdominal: Reports: Constipation (Patient problems with constipation), Decreased Appetite. Denies: Abdominal Pain, Bloody Stool Genitourinary: Reports: Other (Urinary frequency) Musculoskeletal: Reports: Neck Pain, Shoulder Pain, Back Pain, Joint Pain (Knees hips and lower back.) Skin: Reports: Bruising (Extensive ecchymoses involving both upper extremities from the dorsal hands to the elbows bilaterally. Patient has been on chronic blood thinners for many years due to chronic atrial fibrillation. Spontaneous hemorrhages have occurred on multiple occasions into the entire dorsal surface of both forearms.) Neurological: Reports: Numbness, Paresthesia (Patient has peripheral neuropathy both lower extremities chronically from diabetes.), Tingling. Denies: Confusion, Dizziness, Headache Psychiatric: Reports: No Symptoms ED EXAM, GENERAL - Physical Exam Exam: See Below Exam Limited By: No Limitations General Appearance: Alert, WD/WN, No Apparent Distress, Other (Temperature is 36.2. Heart rate 98 and sinus. Respiratory to 20 with O2 sats of 97%. BP 160/64.) Eye Exam: Bilateral Eye: Normal Inspection (Mild blepharal pallor. No scleral icterus.) Throat/Mouth: Other Head: Atraumatic, Normocephalic (Only dry and coated.) Neck: Normal Inspection, Limited Range of Motion, Other (Advises me that he has pain along the right lateral aspect of his neck that radiates across the superior aspect of his right shoulder and slight in the distribution of his clavicle on the right side. Pain then extends down the right upper extremity from shoulder to his right hand.). No: Supple, Lymphadenopathy (L), Lymphadenopathy (R) Respiratory/Chest: Respiratory Distress (Tachypnea at rest.), Decreased Breath Sounds (Creased air entry to the lower 50% lung miranda posteriorly.), Rales (Expiratory wheezes. Rales appreciated left lung base), Wheezing. No: Lungs Clear, Normal Breath Sounds Cardiovascular: Irregularly Irregular ([place] in atrial fibrillation), Other (Number appreciated on examination). No: Normal Peripheral Pulses, No Edema, No Gallop Peripheral Pulses: 0: Posterior Tibial (L) (No pulses are palpable below the femorals on this patient due to severe dependent edema of both lower extremities at his above his knees.), Posterior Tibial (R), Dorsalis Pedis (L), Dorsalis Pedis (R), 2+: Carotid (L), Carotid (R) GI/Abdominal: Normal Bowel Sounds, Soft, Non-Tender, No Organomegaly Extremities: Pedal Edema (Plus pitting edema up above both knees bilaterally. Both legs are wrapped with compression dressings as well as dressings to soak up serous fluid drainage from both legs primarily the right leg.), Arm Pain (Right arm pain rating from the neck all the way to his right wrist) Neurological: Alert ( developing over the last 3 to 4 days), Oriented, CN II-XII Intact, Normal Cognition Psychiatric: Normal Affect, Normal Mood Skin Exam: Warm, Dry, Zoster-Like Rash (From tip of his right shoulder down the outer aspect of his right arm and onto the ulnar aspect of his right forearm. Herpes zoster following the C6-C7 dermatome. Multiple vesicles present with no oozing from the vesicles.) Course - Vital Signs Last Recorded V/S: Last Vital Signs Temp 36.2 C 06/25/20 09:33 Pulse 98 06/25/20 09:33 Resp 20 06/25/20 09:33 BP 160/64 H 06/25/20 09:33 Pulse Ox 97 06/25/20 09:33 - Orders/Labs/Meds Meds: Medications Discontinued Medications Generic Name Dose Route Start Last Admin Trade Name Freq PRN Reason Stop Dose Admin Oxycodone/Acetaminophen 1 tab 06/25/20 09:53 06/25/20 09:59 Percocet 325-5 Mg PO 06/25/20 09:54 1 tab ONETIME ONE Administration - Radiology Interpretation Free Text/Narrative:: 80-year-old male presents to the ED with pain in his right upper extremity particularly the right shoulder. He appreciates some discomfort on the top of his right shoulder starting from his anterior lateral right neck. He believes this has been present for the last 2 to 3 days. He states he was pushing himself up out of his wheelchair with his arms and felt pain develop in his right shoulder suggesting that he possibly tore a tendon. However on examination of the right upper extremity there is an obvious herpes zoster dermatitis in the C6-C7 dermatome outer aspect of the right shoulder top of the right shoulder and onto his dorsal right forearm nearly to the wrist. The rash is partially obscured on the forearm due to chronic ecchymoses and bleeding under the skin from being on blood thinners for many years. Patient has multiple core morbidities including severe congestive heart failure with severe right sided failure with edema both lower extremities up past the knees. He has associated peripheral neuropathy and is on Neurontin 100 mg twice daily. Most of his shoulder is normal with normal abduction and forward flexion and no evidence of rotator cuff tear at this time. Decision made not to treat him with any prednisone due to diabetes and severe congestive heart failure as the steroids will cause fluid retention and aggravate his blood sugars. We will start him on valacyclovir 1 g 3 times daily for the next 10 days. His last GFR through the ED in April was 39. He is at risk of potential renal injury from valacyclovir. Advised he will follow-up in the clinic next Saturday for kidney checkup. Given first tablet of Percocet 5/325 mg in the ED today. Prescription written for 24 tablets to be taken 1 tablet every 4 hours as needed for pain relief. Advised to purchase MiraLAX powder 17 g and stay on a daily to prevent constipation. We will increase his Neurontin to 100 mg 3 times daily for the next 2 weeks in an effort to try and help with the pain in his right upper extremity as well. Departure - Departure Time of Disposition: 09:59 Disposition: Home, Self-Care 01 Condition: Fair Clinical Impression: Acute herpes zoster neuropathy, Right arm pain - Discharge Information *PRESCRIPTION DRUG MONITORING PROGRAM REVIEWED*: Not Applicable *COPY OF PRESCRIPTION DRUG MONITORING REPORT IN PATIENT FIOR: Not Applicable Prescriptions: Gabapentin [Neurontin] 100 mg PO TID #14 cap oxyCODONE HCl/Acetaminophen [Percocet 5-325 mg Tablet] 1 - 2 each PO Q4H PRN #24 tablet PRN Reason: pain relief. valACYclovir [Valtrex] 1,000 mg PO TID #21 tab Referrals: Saleem Guillermo Jr, MD [Primary Care Provider] - Forms: ED Department Discharge, ED Return to Work/School Form Additional Instructions: Evaluation in the emergency room this morning in regards to diffuse right upper anterior neck and shoulder pain starting 2 to 3 days ago. Pain is radiating down the right upper extremity to the wrist and hand. Examination reveals that you have shingles with obvious blisters on the shoulder right lateral arm and down to the right forearm. Treatment will be antiviral medication valacyclovir 1 g tablet 3 times daily for the next week. Suggest increasing your Neurontin from 100 mg tablet twice daily to 100 mg 3 times daily for the next 12 days. Pain pill Percocet 5/325 mg ideally 1 tablet every 4-6 hours as needed for pain relief. Pain pills cause constipation and you should be on a stool softener or MiraLAX powder 17 g once daily while taking the pain pills. The rash will take at least 3 weeks to go away. They will usually leave some scarring for a about a year in its distribution. The uribe is to get the pain under control as soon as possible with the antiviral medicine to prevent long-term constant nerve pain in the right arm. Just follow-up with your doctor on Saturday next week for kidney checkup and a reevaluation of the shingles pain. Sepsis Event Note (ED) - Evaluation Sepsis Screening Result: No Definite Risk - Focused Exam Vital Signs: Vital Signs Temp Pulse Resp BP Pulse Ox 06/25/20 09:33 36.2 C 98 20 160/64 H 97
[2020-06-25 10:32] VITALS: BP 166/71; PULSE 93
== END 2020-06-25 10:32 | disposition home or self-care (01) ==
LOC: JD.ED 09:16
DX: B02.23 Postherpetic polyneuropathy (principal); I11.0 Hypertensive heart disease with heart failure; I50.9 Heart failure, unspecified; E11.42 Type 2 diabetes mellitus with diabetic polyneuropathy; I25.2 Old myocardial infarction; J44.9 Chronic obstructive pulmonary disease, unspecified; K21.9 Gastro-esophageal reflux disease without esophagitis; E78.00 Pure hypercholesterolemia, unspecified; Z88.5 Allergy status to narcotic agent; Z88.6 Allergy status to analgesic agent; Z88.8 Allergy status to other drugs, medicaments and biological substances; Z91.018 Allergy to other foods; Z79.4 Long term (current) use of insulin; Z79.01 Long term (current) use of anticoagulants; Z79.02 Long term (current) use of antithrombotics/antiplatelets; Z79.82 Long term (current) use of aspirin; Z79.899 Other long term (current) drug therapy; Z95.5 Presence of coronary angioplasty implant and graft; Z87.891 Personal history of nicotine dependence
CPT/HCPCS: 99283; A9270

== ENCOUNTER 2020-06-26 06:00 | Inpatient (IN) | payer MEDICARE, MEDICAID ==
[2020-06-26] MEDS ORDERED: diphenhydrAMINE 50 MG/ML SDV IVPUSH ONE (06:21)
[2020-06-26] MEDS ORDERED: LORazepam 2 MG/ML SDV IVPUSH ONE (06:22)
--- NOTE | 2020-06-26 06:28 | EDM.PDOC ---
<Salvatore Deng Funmilayo - Last Filed: 06/26/20 06:48> ED HPI GENERAL MEDICAL PROBLEM - General Chief Complaint: General Stated Complaint: [facility] Time Seen by Provider: 06/26/20 06:10 Source of Information: Reports: Patient History Limitations: Reports: No Limitations - History of Present Illness INITIAL COMMENTS - FREE TEXT/NARRATIVE: This is an 80-year-old male. He was here yesterday for evaluation of severe right shoulder pain. They discover that he has shingles with a zoster-like rash on his anterior deltoid down into his bicep forearm as well. They put him on acyclovir and gave him Percocet for pain. He apparently did fine yesterday went home took a pain pill around 5:00 or so he was doing okay and then around 2 AM this morning he took 2 Percocets because of the increased pain. Shortly thereafter he began to having upper body shakes that were uncontrollable. This continued and he finally called the ambulance around 5 AM and he comes to the ER around 6:10 AM. The patient has multiple severe medical problems. 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 Due to his poor reaction to the chemotherapy he has not had any but 1 or 2 treatments. He arrived to the ER his blood sugar was 173. Planes of upper body shaking but no lower body shaking. Denies any urinary symptoms. He has had no nausea or vomiting or diarrhea. He does not believe he has been exposed to Covid. He was not running a temperature at home that he is aware of and his temperature when he arrived to the ER was 99.3. - Related Data Allergies Allergy/AdvReac Type Severity Reaction Status Date / Time glipizide [From Glucotrol] Allergy Other Verified 06/26/20 06:11 ibuprofen Allergy Other Verified 06/26/20 06:11 metformin Allergy Other Verified 06/26/20 06:11 pioglitazone [From Actos] Allergy Other Verified 06/26/20 06:11 codeine AdvReac Nausea and Verified 06/26/20 06:11 Vomiting fish oil AdvReac Nausea and Verified 06/26/20 06:11 Vomiting Home Meds: Home Meds Nitroglycerin [Nitrostat] 0.4 mg SL ASDIRECTED PRN 03/05/14 [History] Acetaminophen [Acetaminophen Extra Strength] 1,000 mg PO BID PRN 10/15/14 [History] Budesonide [Pulmicort] 1 ampule INH BID 06/30/16 [History] Montelukast [Singulair] 10 mg PO BEDTIME 06/30/16 [History] Gabapentin [Neurontin] 100 mg PO BID 01/27/18 [History] Albuterol [Ventolin HFA] 2 puff INH QID PRN 09/30/18 [History] Calcium Carb/Magnesium Hydrox [Antacid Chewable Tablet] 1,000 mg PO DAILY PRN 10/01/18 [History] Arformoterol [Brovana] 1 inh INH BID 05/05/20 [History] Aspirin 81 mg PO DAILY 05/05/20 [History] Benzonatate [Tessalon Perle] 100 - 200 mg PO Q4HR PRN 05/05/20 [History] Carboxymethylcellulose Sodium [Refresh Liquigel 1%] 1 dose EYEBOTH QID 05/05/20 [History] Clopidogrel Bisulfate [Plavix] 75 mg PO DAILY 05/05/20 [History] Diphenhyd/Lidocaine/Nystatin [Magic Mouthwash] 30 ml PO QID 05/05/20 [History] Fluticasone Propionate [Flonase] 2 spray NASBOTH DAILY 05/05/20 [History] Furosemide [Lasix] 20 mg PO DAILY 05/05/20 [History] Incruse Ellipta 62.5mcg/Inh 1 puff INH BID 05/05/20 [History] Ipratropium [Atrovent HFA] 2 puff INH TID 05/05/20 [History] Levothyroxine [Synthroid] 50 mg PO DAILY 05/05/20 [History] Metoprolol Tartrate 50 mg PO BID 05/05/20 [History] Omeprazole 40 mg PO DAILY 05/05/20 [History] Ondansetron [Zofran] 4 mg PO Q6HR PRN 05/05/20 [History] Promethazine HCl/Codeine [Prometh-Codein 6.25-10 mg/5 ml] 10 ml PO Q8HR PRN 05/05/20 [History] Ranolazine [Ranolazine ER] 500 mg PO BID 05/05/20 [History] Sodium Chloride/Aloe Vera [[place] Saline Nasal Gel [place]] 1 - 2 spray GISEL TID 05/05/20 [History] Tamsulosin [Flomax] 0.8 mg PO BEDTIME 05/05/20 [History] Triamcinolone Acetonide [Triamcinolone Acetonide 0.1% Crm] 1 dose TOP DAILY 05/05/20 [History] captopriL [Capoten] 50 mg PO BID 05/05/20 [History] dexAMETHasone [Dexamethasone] 8 mg PO DAILY 05/05/20 [History] diazePAM [Valium] 2 mg PO Q6HR PRN 05/05/20 [History] guaiFENesin [Mucinex] 600 mg PO BID 05/05/20 [History] oxyCODONE HCl/Acetaminophen [Percocet 5-325 mg Tablet] 1 - 2 each PO Q4H PRN #24 tablet 06/25/20 [Rx] valACYclovir [Valtrex] 1,000 mg PO TID #21 tab 06/25/20 [Rx] Insulin Aspart [NovoLOG] 70 - 75 unit SQ TID 06/26/20 [History] Insulin Glargine,Hum.Rec.Anlog [Basaglar Kwikpen U-100] 42 unit SQ BID 06/26/20 [History] Isosorbide Mononitrate [Isosorbide Mononitrate ER] 120 mg PO DAILY 06/26/20 [History] Rosuvastatin Calcium 20 mg PO DAILY 06/26/20 [History] Past Medical History HEENT History: Reports: Impaired Vision Other HEENT History: wears glasses Cardiovascular History: Reports: High Cholesterol, Hypertension, [place] Respiratory History: Reports: COPD, SOB, Other (See Below) Other Respiratory History: emphysema Gastrointestinal History: Reports: GERD Musculoskeletal History: Reports: Back Pain, Chronic, Osteoarthritis Neurological History: Reports: Headaches, Chronic Other Neuro History: Stroke in 1971 Endocrine/Metabolic History: Reports: Diabetes, Type II Other Hematologic History: hypomagnesemia Dermatologic History: Reports: Other (See Below) Other Dermatologic History: seborrheic keratosis - Infectious Disease History Infectious Disease History: Reports: Influenza, Measles - Past Surgical History Cardiovascular Surgical History: Reports: Coronary Artery Stent GI Surgical History: Reports: Colonoscopy Social & Family History - Family History Family Medical History: Noncontributory - Caffeine Use Caffeine Use: Reports: Coffee Other Caffeine Use: states he has one every once in awhile when he feels like it. - Living Situation & Occupation Living situation: Reports: Single Occupation: Retired ED ROS GENERAL - Review of Systems Review Of Systems: See Below Constitutional: Reports: Chills, Weakness, Fatigue. Denies: Fever, Diaphoresis HEENT: Reports: No Symptoms Respiratory: Reports: Shortness of Breath, Cough. Denies: Wheezing, Pleuritic Chest Pain Cardiovascular: Reports: Edema, Other (Lower extremity edema with multiple weeping wounds and he is in Unna boots he has atrial fibrillation). Denies: Chest Pain Endocrine: Reports: High Glucose GI/Abdominal: Reports: Constipation. 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 This is his normal oxygen that he has at home.) Eye Exam: Bilateral Eye: Normal Inspection, Vision Changes (No jaundice noted, he does have some scleral hemorrhage noted) Ears: Normal External Exam Nose: Normal Inspection Throat/Mouth: Normal Inspection, Normal Lips, Normal Voice, No Airway Compromise, Other (Face does have a slight cyanotic look) Head: Atraumatic, Normocephalic Neck: Supple, Other (Pains of generalized soreness of his neck with limited range of motion.) Respiratory/Chest: No Respiratory Distress, Lungs Clear, Normal Breath Sounds, Other (Not hear a consolidation of breath sounds however he is difficult to auscultate. The patient has a port in the right anterior chest.). No: Crackles, Rales, Rhonchi, Wheezing Cardiovascular: No Murmur, Irregularly Irregular. No: No Edema GI/Abdominal: Other (Abdomen is enlarged he denies any tenderness however) Back Exam: Decreased Range of Motion Extremities: Other (Extremities have 4+ edema even up into his thighs, he is got massive ecchymosis and skin changes of his upper extremities as well as his lower extremities. Due to the Unna boots I cannot tell whether these weeping wounds might be infected. On the right upper extremity he has a zoster-like ra sh noted.) Psychiatric: Normal Affect, Normal Mood Skin Exam: Warm, Dry, Zoster-Like Rash Departure - Departure Disposition: Admitted As Inpatient 66 Clinical Impression: Acute herpes zoster neuropathy, Metastasis to brain Pneumonia Qualifiers: Pneumonia type: due to unspecified organism Laterality: left Lung location: lower lobe of lung Qualified Code(s): J18.9 - Pneumonia, unspecified organism Lung cancer Qualifiers: Laterality: right Lung location: lower lobe of lung Qualified Code(s): C34.31 - Malignant neoplasm of lower lobe, right bronchus or lung - Discharge Information Referrals: Saleem Guillermo Jr, MD [Primary Care Provider] - Forms: ED Department Discharge Sepsis Event Note (ED) - Evaluation Sepsis Screening Result: No Definite Risk <Salvatore Trujillo - Last Filed: 06/26/20 09:17> ED EXAM, GENERAL - Physical Exam Exam: See Below #1 Interpretation EKG Date: 06/26/20 Time: 06:55 Rhythm: A-Flutter Rate (Beats/Min): 99 [place]: Normal P-Wave: Present QRS: Normal ST-T: Normal QT: Normal Course - Vital Signs Last Recorded V/S: Last Vital Signs Temp 97.4 F 06/26/20 06:03 Pulse 98 06/26/20 06:03 Resp 20 06/26/20 06:03 BP 154/80 H 06/26/20 06:03 Pulse Ox 90 L 06/26/20 06:03 - Orders/Labs/Meds Orders: Active Orders 24 hr Category Date Time Status EKG 12 Lead [EKG Documentation Completion] [RC] STAT Care 06/26/20 06:24 Active Implanted Port Access [RC] STAT Care 06/26/20 06:48 Active CXR [Chest 1V Frontal] [CR] Stat Exams 06/26/20 06:22 Taken CULTURE BLOOD [BC] Stat Lab 06/26/20 06:36 Received CULTURE BLOOD [BC] Stat Lab 06/26/20 06:52 Received CULTURE URINE [RM] Stat Lab 06/26/20 08:32 Received Sodium Chloride 0.9% [Normal Saline] 1,000 ml Med 06/26/20 06:30 Active IV ASDIRECTED cefTRIAXone [Rocephin] 2 gm Med 06/26/20 09:15 Active Sodium Chloride 0.9% [Normal Saline] 100 ml IV Q24H Blood Culture x2 Reflex Set [OM.PC] Stat Oth 06/26/20 06:23 Ordered Medication Orders Sodium Chloride (Normal Saline) 1,000 mls @ 100 mls/hr IV ASDIRECTED GUANAKO Last Admin: 06/26/20 06:38 Dose: 100 mls/hr Documented by: EVARISTO Ceftriaxone Sodium 2 gm/ (Sodium Chloride) 100 mls @ 200 mls/hr IV Q24H [facility] Labs: Laboratory Tests 06/26/20 06/26/20 06/26/20 Range/Units 06:36 06:36 06:36 WBC 5.91 (4.23-9.07) K/mm3 RBC 3.55 L (4.63-6.08) M/mm3 Hgb 10.9 L (13.7-17.5) gm/dl Hct 35.0 L (40.1-51.0) % MCV 98.6 H D (79.0-92.2) fl MCH 30.7 (25.7-32.2) pg MCHC 31.1 L (32.2-35.5) g/dl RDW Std Deviation 56.0 H (35.1-43.9) fL Plt Count 106 L (163-337) K/mm3 MPV 10.2 (9.4-12.3) fl Neut % (Auto) 88.5 H (34.0-67.9) % Lymph % (Auto) 4.7 L (21.8-53.1) % [place] % (Auto) 5.2 L (5.3-12.2) % Eos % (Auto) 0 L (0.8-7.0) Baso % (Auto) 0.2 (0.1-1.2) % Neut # (Auto) 5.23 (1.78-5.38) K/mm3 Lymph # (Auto) 0.28 L (1.32-3.57) K/mm3 [place] # (Auto) 0.31 (0.30-0.82) K/mm3 Eos # (Auto) 0.00 L (0.04-0.54) K/mm3 Baso # (Auto) 0.01 (0.01-0.08) K/mm3 Manual Slide Review Abnormal smear PT (9.7-12.0) SECONDS INR Sodium 142 (136-145) mEq/L Potassium 4.5 (3.5-5.1) mEq/L Chloride 101 (98-107) mEq/L Carbon Dioxide 36 H (21-32) mEq/L Anion Gap 9.5 (5-15) BUN 41 H (7-18) mg/dL Creatinine 1.5 H (0.7-1.3) mg/dL Est Cr Clr Drug Dosing TNP Estimated GFR (MDRD) 45 (>60) mL/min BUN/Creatinine Ratio 27.3 H (14-18) Glucose 151 H (83-115) mg/dL POC Glucose (83-110) mg/dL Lactic Acid 1.7 (0.4-2.0) mmol/L Calcium 8.9 (8.5-10.1) mg/dL Total Bilirubin 1.5 H (0.2-1.0) mg/dL AST 12 L (15-37) U/L ALT 31 (16-63) U/L Alkaline Phosphatase 53 (46-116) U/L Troponin I 0.032 (0.00-0.056) ng/mL C-Reactive Protein 11.9 H* (<1.0) mg/dL NT-Pro-B Natriuret Pep (0-450) pg/mL Total Protein 6.2 L (6.4-8.2) g/dl Albumin 2.7 L (3.4-5.0) g/dl Globulin 3.5 gm/dL Albumin/Globulin Ratio 0.8 L (1-2) Urine Color (Yellow) Urine Appearance (Clear) Urine pH (5.0-8.0) Ur Specific [place] (1.005-1.030) Urine Protein (Negative) Urine Glucose (UA) (Negative) Urine Ketones (Negative) Urine Occult Blood (Negative) Urine Nitrite (Negative) Urine Bilirubin (Negative) Urine Urobilinogen (0.2-1.0) Ur Leukocyte Esterase (Negative) U Hyaline Cast (Auto) (0-5) /lpf Urine RBC (0-5) /hpf Urine WBC (0-5) /hpf Ur Squamous Epith Cells (0-5) /hpf Urine Bacteria (FEW) /hpf Urine Mucus (FEW) /hpf SARS-CoV-2 RNA (TAYLOR) (NEGATIVE) 06/26/20 06/26/20 06/26/20 Range/Units 06:36 06:36 06:45 WBC (4.23-9.07) K/mm3 RBC (4.63-6.08) M/mm3 Hgb (13.7-17.5) gm/dl Hct (40.1-51.0) % MCV (79.0-92.2) fl MCH (25.7-32.2) pg MCHC (32.2-35.5) g/dl RDW Std Deviation (35.1-43.9) fL Plt Count (163-337) K/mm3 MPV (9.4-12.3) fl Neut % (Auto) (34.0-67.9) % Lymph % (Auto) (21.8-53.1) % [place] % (Auto) (5.3-12.2) % Eos % (Auto) (0.8-7.0) Baso % (Auto) (0.1-1.2) % Neut # (Auto) (1.78-5.38) K/mm3 Lymph # (Auto) (1.32-3.57) K/mm3 [place] # (Auto) (0.30-0.82) K/mm3 Eos # (Auto) (0.04-0.54) K/mm3 Baso # (Auto) (0.01-0.08) K/mm3 Manual Slide Review PT 10.6 (9.7-12.0) SECONDS INR 0.99 Sodium (136-145) mEq/L Potassium (3.5-5.1) mEq/L Chloride (98-107) mEq/L Carbon Dioxide (21-32) mEq/L Anion Gap (5-15) BUN (7-18) mg/dL Creatinine (0.7-1.3) mg/dL Est Cr Clr Drug Dosing Estimated GFR (MDRD) (>60) mL/min BUN/Creatinine Ratio (14-18) Glucose (83-115) mg/dL POC Glucose (83-110) mg/dL Lactic Acid (0.4-2.0) mmol/L Calcium (8.5-10.1) mg/dL Total Bilirubin (0.2-1.0) mg/dL AST (15-37) U/L ALT (16-63) U/L Alkaline Phosphatase (46-116) U/L Troponin I (0.00-0.056) ng/mL C-Reactive Protein (<1.0) mg/dL NT-Pro-B Natriuret Pep 1251 H (0-450) pg/mL Total Protein (6.4-8.2) g/dl Albumin (3.4-5.0) g/dl Globulin gm/dL Albumin/Globulin Ratio (1-2) Urine Color (Yellow) Urine Appearance (Clear) Urine pH (5.0-8.0) Ur Specific [place] (1.005-1.030) Urine Protein (Negative) Urine Glucose (UA) (Negative) Urine Ketones (Negative) Urine Occult Blood (Negative) Urine Nitrite (Negative) Urine Bilirubin (Negative) Urine Urobilinogen (0.2-1.0) Ur Leukocyte Esterase (Negative) U Hyaline Cast (Auto) (0-5) /lpf Urine RBC (0-5) /hpf Urine WBC (0-5) /hpf Ur Squamous Epith Cells (0-5) /hpf Urine Bacteria (FEW) /hpf Urine Mucus (FEW) /hpf SARS-CoV-2 RNA (TAYLOR) Negative (NEGATIVE) 06/26/20 06/26/20 Range/Units 07:28 08:30 WBC (4.23-9.07) K/mm3 RBC (4.63-6.08) M/mm3 Hgb (13.7-17.5) gm/dl Hct (40.1-51.0) % MCV (79.0-92.2) fl MCH (25.7-32.2) pg MCHC (32.2-35.5) g/dl RDW Std Deviation (35.1-43.9) fL Plt Count (163-337) K/mm3 MPV (9.4-12.3) fl Neut % (Auto) (34.0-67.9) % Lymph % (Auto) (21.8-53.1) % [place] % (Auto) (5.3-12.2) % Eos % (Auto) (0.8-7.0) Baso % (Auto) (0.1-1.2) % Neut # (Auto) (1.78-5.38) K/mm3 Lymph # (Auto) (1.32-3.57) K/mm3 [place] # (Auto) (0.30-0.82) K/mm3 Eos # (Auto) (0.04-0.54) K/mm3 Baso # (Auto) (0.01-0.08) K/mm3 Manual Slide Review PT (9.7-12.0) SECONDS INR Sodium (136-145) mEq/L Potassium (3.5-5.1) mEq/L Chloride (98-107) mEq/L Carbon Dioxide (21-32) mEq/L Anion Gap (5-15) BUN (7-18) mg/dL Creatinine (0.7-1.3) mg/dL Est Cr Clr Drug Dosing Estimated GFR (MDRD) (>60) mL/min BUN/Creatinine Ratio (14-18) Glucose (83-115) mg/dL POC Glucose 178 H (83-110) mg/dL Lactic Acid (0.4-2.0) mmol/L Calcium (8.5-10.1) mg/dL Total Bilirubin (0.2-1.0) mg/dL AST (15-37) U/L ALT (16-63) U/L Alkaline Phosphatase (46-116) U/L Troponin I (0.00-0.056) ng/mL C-Reactive Protein (<1.0) mg/dL NT-Pro-B Natriuret Pep (0-450) pg/mL Total Protein (6.4-8.2) g/dl Albumin (3.4-5.0) g/dl Globulin gm/dL Albumin/Globulin Ratio (1-2) Urine Color Yellow (Yellow) Urine Appearance Slt cloudy H (Clear) Urine pH 6.5 (5.0-8.0) Ur Specific [place] 1.025 (1.005-1.030) Urine Protein 2+ H (Negative) Urine Glucose (UA) Negative (Negative) Urine Ketones Negative (Negative) Urine Occult Blood Negative (Negative) Urine Nitrite Negative (Negative) Urine Bilirubin Negative (Negative) Urine Urobilinogen 1.0 (0.2-1.0) Ur Leukocyte Esterase Negative (Negative) U Hyaline Cast (Auto) 0-5 (0-5) /lpf Urine RBC Not seen (0-5) /hpf Urine WBC 0-5 (0-5) /hpf Ur Squamous Epith Cells 0-5 (0-5) /hpf Urine Bacteria Rare (FEW) /hpf Urine Mucus Few (FEW) /hpf SARS-CoV-2 RNA (TAYLOR) (NEGATIVE) Meds: Medications Generic Name Dose Route Start Last Admin Trade Name Freq PRN Reason Stop Dose Admin Sodium Chloride 1,000 mls @ 100 mls/hr 06/26/20 06:30 06/26/20 06:38 Normal Saline IV 100 mls/hr ASDIRECTED GUANAKO Administration Ceftriaxone Sodium 2 gm/ 100 mls @ 200 mls/hr 06/26/20 09:15 Sodium Chloride IV Q24H GUANAKO Discontinued Medications Generic Name Dose Route Start Last Admin Trade Name Freq PRN Reason Stop Dose Admin Diphenhydramine HCl 25 mg 06/26/20 06:21 06/26/20 06:38 Benadryl IVPUSH 06/26/20 06:22 25 mg ONETIME ONE Administration Lorazepam 0.5 mg 06/26/20 06:22 06/26/20 06:39 Ativan IVPUSH 06/26/20 06:23 0.5 mg ONETIME ONE Administration - Re-Assessments/Exams Free Text/Narrative Re-Assessment/Exam: 06/26/20 08:[address] Deng. The patient's EKG shows atrial flutter with no acute changes. His CXR shows atalectasis versus early infiltrate in the left lower lobe. His WBC is normal. His Hgb is low at 10.9. His creatinine is elevated at 1.5. His glucose is 151. His total bili is elevated at 1.5. His troponin is negative. His CRP is elevated at 11.9. His BP was elevated at 1251. His COVID 19 is negative. I am waiting on a UA. 06/26/20 09:12 The UA shows no UTI. I ordered rocephin. I feel he needs to be admitted. I called Dr Hughes and he agreed to the admission. Departure - Departure Time of Disposition: 09:15 Condition: Fair Sepsis Event Note (ED) - Focused Exam Vital Signs: Vital Signs Temp Pulse Resp BP Pulse Ox 06/26/20 06:03 97.4 F 98 20 154/80 H 90 L - My Orders Last 24 Hours: My Active Orders 06/26/20 09:15 cefTRIAXone [Rocephin] 2 gm Sodium Chloride 0.9% [Normal Saline] 100 ml IV Q24H - Assessment/Plan Last 24 Hours: My Active Orders 06/26/20 09:15 cefTRIAXone [Rocephin] 2 gm Sodium Chloride 0.9% [Normal Saline] 100 ml IV Q24H
[2020-06-26] MEDS ORDERED: Sodium Chloride 0.9% 1,000 ML IV SCH (06:30)
[2020-06-26] MEDS: cefTRIAXone 2 GM in Sodium Chloride 0.9% 100 ML IV SCH (09:39)
[2020-06-26] MEDS ORDERED: Acetaminophen 325 MG Tab PO PRN (13:41)
[2020-06-26] MEDS ORDERED: Ondansetron 4 MG/2 ML SDV IV PRN (13:41)
[2020-06-26] MEDS ORDERED: Acetaminophen/oxyCODONE 325-5 MG Tab PO PRN (15:01)
[2020-06-26] MEDS ORDERED: Diazepam 2 MG Tab PO PRN (15:01)
[2020-06-26] MEDS ORDERED: Nitroglycerin 0.4 MG Tab.SL SL PRN (15:01)
[2020-06-26] MEDS ORDERED: Benzonatate 100 MG Cap PO PRN (15:01)
[2020-06-26] MEDS ORDERED: Furosemide 40 MG/4 ML VIAL IVPUSH ONE ×2 (15:09→18:00)
[2020-06-26] MEDS ORDERED: 50% Dextrose in Water 50 ML Syringe IV PRN (15:21)
--- NOTE | 2020-06-26 15:21 | PCM.HP.2 ---
H&P History of Present Illness - General Date of Service: 06/26/20 Admit Problem/Dx: Admission Diagnosis/Problem Admission Diagnosis/Problem Pneumonia - History of Present Illness Initial Comments - Free Text/Narative: Patient presented to the emergency department with complaints of shaking chills of his lower body and decreased strength. Patient states that he has not had any exposure to Covid and he was diagnosed yesterday with shingles. Patient was seen in the emergency department yesterday with a rash on his right shoulder and upper arm and pain. He was diagnosed with shingles and started on Valtrex and Percocet. He did take Percocet last night and early this morning around 2 AM. Shortly after that he began having upper body shakes that were uncontrollable. He called EMS at 5 AM. Patient states that he is unable to lift his leg on the right side enough to go over his left leg. He does have a history of congestive heart failure and get Unna boots placed on the right leg secondary to severe peripheral edema and open ulcers. Patient states that he usually gets around on a scooter. He can get up and walk with a walker normally. Patient states that today he was unable to because of weakness. Patient was placed on dexamethasone from his oncologist. He was started on 8 mg last week for 1 week to be decreased to 4 mg daily after that. Patient has a history of lung cancer diagnosed a couple of months ago. 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 - Related Data Allergies/Adverse Reactions: Allergies Allergy/AdvReac Type Severity Reaction Status Date / Time glipizide [From Glucotrol] Allergy Other Verified 06/26/20 18:18 ibuprofen Allergy Other Verified 06/26/20 18:18 metformin Allergy Other Verified 06/26/20 18:18 pioglitazone [From Actos] Allergy Other Verified 06/26/20 18:18 codeine AdvReac Nausea and Verified 06/26/20 18:18 Vomiting fish oil AdvReac Nausea and Verified 06/26/20 18:18 Vomiting Home Medications: Home Meds Nitroglycerin [Nitrostat] 0.4 mg SL ASDIRECTED PRN 03/05/14 [History] Acetaminophen [Acetaminophen Extra Strength] 1,000 mg PO BID PRN 10/15/14 [History] Budesonide [Pulmicort] 1 ampule INH BID 06/30/16 [History] Montelukast [Singulair] 10 mg PO BEDTIME 06/30/16 [History] Gabapentin [Neurontin] 100 mg PO BID 01/27/18 [History] Albuterol [Ventolin HFA] 2 puff INH QID PRN 09/30/18 [History] Calcium Carb/Magnesium Hydrox [Antacid Chewable Tablet] 1,000 mg PO DAILY PRN 10/01/18 [History] Arformoterol [Brovana] 1 inh INH BID 05/05/20 [History] Aspirin 81 mg PO DAILY 05/05/20 [History] Benzonatate [Tessalon Perle] 100 - 200 mg PO Q4HR PRN 05/05/20 [History] Carboxymethylcellulose Sodium [Refresh Liquigel 1%] 1 dose EYEBOTH QID 05/05/20 [History] Clopidogrel Bisulfate [Plavix] 75 mg PO DAILY 05/05/20 [History] Diphenhyd/Lidocaine/Nystatin [Magic Mouthwash] 30 ml PO QID 05/05/20 [History] Fluticasone Propionate [Flonase] 2 spray NASBOTH DAILY 05/05/20 [History] Furosemide [Lasix] 20 mg PO DAILY 05/05/20 [History] Incruse Ellipta 62.5mcg/Inh 1 puff INH BID 05/05/20 [History] Ipratropium [Atrovent HFA] 2 puff INH TID 05/05/20 [History] Levothyroxine [Synthroid] 50 mg PO DAILY 05/05/20 [History] Metoprolol Tartrate 50 mg PO BID 05/05/20 [History] Omeprazole 40 mg PO DAILY 05/05/20 [History] Ondansetron [Zofran] 4 mg PO TID PRN 05/05/20 [History] Promethazine HCl/Codeine [Prometh-Codein 6.25-10 mg/5 ml] 10 ml PO Q8HR PRN 05/05/20 [History] Ranolazine [Ranolazine ER] 500 mg PO BID 05/05/20 [History] Sodium Chloride/Aloe Vera [[place] Saline Nasal Gel [place]] 2 spray GISEL TID 05/05/20 [History] Tamsulosin [Flomax] 0.8 mg PO DAILY 05/05/20 [History] Triamcinolone Acetonide [Triamcinolone Acetonide 0.1% Crm] 1 dose TOP DAILY 05/05/20 [History] captopriL [Capoten] 50 mg PO BID 05/05/20 [History] dexAMETHasone [Dexamethasone] 4 mg PO DAILY 05/05/20 [History] diazePAM [Valium] 2 mg PO Q6HR PRN 05/05/20 [History] guaiFENesin [Mucinex] 600 mg PO BID 05/05/20 [History] Insulin Aspart [NovoLOG] 70 - 75 unit SQ TID 06/26/20 [History] Insulin Glargine,Hum.Rec.Anlog [Basaglar Kwikpen U-100] 42 unit SQ BID 06/26/20 [History] Isosorbide Mononitrate [Isosorbide Mononitrate ER] 120 mg PO DAILY 06/26/20 [ History] Non-Formulary Medication [NF Drug] 1 inh INH BID 06/26/20 [History] Rosuvastatin Calcium 20 mg PO DAILY 06/26/20 [History] Past Medical History HEENT History: Reports: Impaired Vision Other HEENT History: wears glasses Cardiovascular History: Reports: High Cholesterol, Hypertension, [place] Respiratory History: Reports: COPD, SOB, Other (See Below) Other Respiratory History: emphysema Gastrointestinal History: Reports: GERD Genitourinary History: Reports: BPH Musculoskeletal History: Reports: Back Pain, Chronic, Osteoarthritis Neurological History: Reports: Headaches, Chronic Other Neuro History: Stroke in 1971 Endocrine/Metabolic History: Reports: Diabetes, Type II Other Hematologic History: hypomagnesemia Oncologic (Cancer) History: Reports: Lung Dermatologic History: Reports: Other (See Below) Other Dermatologic History: seborrheic keratosis - Infectious Disease History Infectious Disease History: Reports: Influenza, Measles - Past Surgical History Cardiovascular Surgical History: Reports: Coronary Artery Stent GI Surgical History: Reports: Colonoscopy Social & Family History - Family History Family Medical History: Noncontributory - Tobacco Use Tobacco Use Status *Q: Never Tobacco User - Caffeine Use Caffeine Use: Reports: Coffee Other Caffeine Use: states he has one every once in awhile when he feels like it. - Recreational Drug Use Recreational Drug Use: No - Living Situation & Occupation Living situation: Reports: Single Occupation: Retired H&P Review of Systems - Review of Systems: Review Of Systems: Comprehensive ROS is negative, except as noted in HPI. Exam - Exam Exam: See Below - Vital Signs Vital Signs: Last Vital Signs Temp 99.1 F 06/26/20 12:53 Pulse 100 06/26/20 13:21 Resp 18 06/26/20 12:50 BP 136/70 06/26/20 12:53 Pulse Ox 94 L 06/26/20 13:41 - Exam Quality Assessment: Supplemental Oxygen General: Alert, Oriented, 4 HEENT: Conjunctiva Clear, EOMI, Mucosa Moist & [place], Pupils Equal Neck: Supple, Trachea Midline, 2 Lungs: Normal Respiratory Effort, Crackles (Bilateral) Cardiovascular: Regular Rate, Regular Rhythm, Systolic Murmur GI/Abdominal Exam: Normal Bowel Sounds, Soft, Non-Tender, No Organomegaly, No Distention, No Abnormal Bruit Extremities: Normal Capillary Refill, Pedal Edema (Right lower extremity is wrapped with an Viktor wrap. Left has a compression stocking. Right leg was erythematous and weeping underneath the gauze and Viktor wrap.), Limited Range of Motion, Increased Warmth. No: Normal Inspection, Normal Range of Motion Skin: Ecchymosis, Other (Erythematous, edematous, and warm right lower extremity with open ulcers.) Neuro Extensive - Mental Status: Alert, Oriented x3, Normal Mood/Affect, Normal Cognition, Memory Intact Psychiatric: Alert, Normal Affect, Normal Mood - Patient Data Lab Results Last 24 hrs: Laboratory Results - last 24 hr 06/26/20 06/26/20 06/26/20 Range/Units 06:36 06:36 06:36 WBC 5.91 (4.23-9.07) K/mm3 RBC 3.55 L (4.63-6.08) M/mm3 Hgb 10.9 L (13.7-17.5) gm/dl Hct 35.0 L (40.1-51.0) % MCV 98.6 H D (79.0-92.2) fl MCH 30.7 (25.7-32.2) pg MCHC 31.1 L (32.2-35.5) g/dl RDW Std Deviation 56.0 H (35.1-43.9) fL Plt Count 106 L (163-337) K/mm3 MPV 10.2 (9.4-12.3) fl Neut % (Auto) 88.5 H (34.0-67.9) % Lymph % (Auto) 4.7 L (21.8-53.1) % [place] % (Auto) 5.2 L (5.3-12.2) % Eos % (Auto) 0 L (0.8-7.0) Baso % (Auto) 0.2 (0.1-1.2) % Neut # (Auto) 5.23 (1.78-5.38) K/mm3 Lymph # (Auto) 0.28 L (1.32-3.57) K/mm3 [place] # (Auto) 0.31 (0.30-0.82) K/mm3 Eos # (Auto) 0.00 L (0.04-0.54) K/mm3 Baso # (Auto) 0.01 (0.01-0.08) K/mm3 Manual Slide Review Abnormal smear PT (9.7-12.0) SECONDS INR Sodium 142 (136-145) mEq/L Potassium 4.5 (3.5-5.1) mEq/L Chloride 101 (98-107) mEq/L Carbon Dioxide 36 H (21-32) mEq/L Anion Gap 9.5 (5-15) BUN 41 H (7-18) mg/dL Creatinine 1.5 H (0.7-1.3) mg/dL Est Cr Clr Drug Dosing TNP Estimated GFR (MDRD) 45 (>60) mL/min BUN/Creatinine Ratio 27.3 H (14-18) Glucose 151 H (83-115) mg/dL POC Glucose (83-110) mg/dL Lactic Acid 1.7 (0.4-2.0) mmol/L Calcium 8.9 (8.5-10.1) mg/dL Total Bilirubin 1.5 H (0.2-1.0) mg/dL AST 12 L (15-37) U/L ALT 31 (16-63) U/L Alkaline Phosphatase 53 (46-116) U/L Troponin I 0.032 (0.00-0.056) ng/mL C-Reactive Protein 11.9 H* (<1.0) mg/dL NT-Pro-B Natriuret Pep (0-450) pg/mL Total Protein 6.2 L (6.4-8.2) g/dl Albumin 2.7 L (3.4-5.0) g/dl Globulin 3.5 gm/dL Albumin/Globulin Ratio 0.8 L (1-2) Urine Color (Yellow) Urine Appearance (Clear) Urine pH (5.0-8.0) Ur Specific [place] (1.005-1.030) Urine Protein (Negative) Urine Glucose (UA) (Negative) Urine Ketones (Negative) Urine Occult Blood (Negative) Urine Nitrite (Negative) Urine Bilirubin (Negative) Urine Urobilinogen (0.2-1.0) Ur Leukocyte Esterase (Negative) U Hyaline Cast (Auto) (0-5) /lpf Urine RBC (0-5) /hpf Urine WBC (0-5) /hpf Ur Squamous Epith Cells (0-5) /hpf Urine Bacteria (FEW) /hpf Urine Mucus (FEW) /hpf SARS-CoV-2 RNA (TAYLOR) (NEGATIVE) 06/26/20 06/26/20 06/26/20 Range/Units 06:36 06:36 06:45 WBC (4.23-9.07) K/mm3 RBC (4.63-6.08) M/mm3 Hgb (13.7-17.5) gm/dl Hct (40.1-51.0) % MCV (79.0-92.2) fl MCH (25.7-32.2) pg MCHC (32.2-35.5) g/dl RDW Std Deviation (35.1-43.9) fL Plt Count (163-337) K/mm3 MPV (9.4-12.3) fl Neut % (Auto) (34.0-67.9) % Lymph % (Auto) (21.8-53.1) % [place] % (Auto) (5.3-12.2) % Eos % (Auto) (0.8-7.0) Baso % (Auto) (0.1-1.2) % Neut # (Auto) (1.78-5.38) K/mm3 Lymph # (Auto) (1.32-3.57) K/mm3 [place] # (Auto) (0.30-0.82) K/mm3 Eos # (Auto) (0.04-0.54) K/mm3 Baso # (Auto) (0.01-0.08) K/mm3 Manual Slide Review PT 10.6 (9.7-12.0) SECONDS INR 0.99 Sodium (136-145) mEq/L Potassium (3.5-5.1) mEq/L Chloride (98-107) mEq/L Carbon Dioxide (21-32) mEq/L Anion Gap (5-15) BUN (7-18) mg/dL Creatinine (0.7-1.3) mg/dL Est Cr Clr Drug Dosing Estimated GFR (MDRD) (>60) mL/min BUN/Creatinine Ratio (14-18) Glucose (83-115) mg/dL POC Glucose (83-110) mg/dL Lactic Acid (0.4-2.0) mmol/L Calcium (8.5-10.1) mg/dL Total Bilirubin (0.2-1.0) mg/dL AST (15-37) U/L ALT (16-63) U/L Alkaline Phosphatase (46-116) U/L Troponin I (0.00-0.056) ng/mL C-Reactive Protein (<1.0) mg/dL NT-Pro-B Natriuret Pep 1251 H (0-450) pg/mL Total Protein (6.4-8.2) g/dl Albumin (3.4-5.0) g/dl Globulin gm/dL Albumin/Globulin Ratio (1-2) Urine Color (Yellow) Urine Appearance (Clear) Urine pH (5.0-8.0) Ur Specific [place] (1.005-1.030) Urine Protein (Negative) Urine Glucose (UA) (Negative) Urine Ketones (Negative) Urine Occult Blood (Negative) Urine Nitrite (Negative) Urine Bilirubin (Negative) Urine Urobilinogen (0.2-1.0) Ur Leukocyte Esterase (Negative) U Hyaline Cast (Auto) (0-5) /lpf Urine RBC (0-5) /hpf Urine WBC (0-5) /hpf Ur Squamous Epith Cells (0-5) /hpf Urine Bacteria (FEW) /hpf Urine Mucus (FEW) /hpf SARS-CoV-2 RNA ([place]OR) Negative (NEGATIVE) 06/26/20 06/26/20 Range/Units 07:28 08:30 WBC (4.23-9.07) K/mm3 RBC (4.63-6.08) M/mm3 Hgb (13.7-17.5) gm/dl Hct (40.1-51.0) % MCV (79.0-92.2) fl MCH (25.7-32.2) pg MCHC (32.2-35.5) g/dl RDW Std Deviation (35.1-43.9) fL Plt Count (163-337) K/mm3 MPV (9.4-12.3) fl Neut % (Auto) (34.0-67.9) % Lymph % (Auto) (21.8-53.1) % [place] % (Auto) (5.3-12.2) % Eos % (Auto) (0.8-7.0) Baso % (Auto) (0.1-1.2) % Neut # (Auto) (1.78-5.38) K/mm3 Lymph # (Auto) (1.32-3.57) K/mm3 [place] # (Auto) (0.30-0.82) K/mm3 Eos # (Auto) (0.04-0.54) K/mm3 Baso # (Auto) (0.01-0.08) K/mm3 Manual Slide Review PT (9.7-12.0) SECONDS INR Sodium (136-145) mEq/L Potassium (3.5-5.1) mEq/L Chloride (98-107) mEq/L Carbon Dioxide (21-32) mEq/L Anion Gap (5-15) BUN (7-18) mg/dL Creatinine (0.7-1.3) mg/dL Est Cr Clr Drug Dosing Estimated GFR (MDRD) (>60) mL/min BUN/Creatinine Ratio (14-18) Glucose (83-115) mg/dL POC Glucose 178 H (83-110) mg/dL Lactic Acid (0.4-2.0) mmol/L Calcium (8.5-10.1) mg/dL Total Bilirubin (0.2-1.0) mg/dL AST (15-37) U/L ALT (16-63) U/L Alkaline Phosphatase (46-116) U/L Troponin I (0.00-0.056) ng/mL C-Reactive Protein (<1.0) mg/dL NT-Pro-B Natriuret Pep (0-450) pg/mL Total Protein (6.4-8.2) g/dl Albumin (3.4-5.0) g/dl Globulin gm/dL Albumin/Globulin Ratio (1-2) Urine Color Yellow (Yellow) Urine Appearance Slt cloudy H (Clear) Urine pH 6.5 (5.0-8.0) Ur Specific [place] 1.025 (1.005-1.030) Urine Protein 2+ H (Negative) Urine Glucose (UA) Negative (Negative) Urine Ketones Negative (Negative) Urine Occult Blood Negative (Negative) Urine Nitrite Negative (Negative) Urine Bilirubin Negative (Negative) Urine Urobilinogen 1.0 (0.2-1.0) Ur Leukocyte Esterase Negative (Negative) U Hyaline Cast (Auto) 0-5 (0-5) /lpf Urine RBC Not seen (0-5) /hpf Urine WBC 0-5 (0-5) /hpf Ur Squamous Epith Cells 0-5 (0-5) /hpf Urine Bacteria Rare (FEW) /hpf Urine Mucus Few (FEW) /hpf SARS-CoV-2 RNA ([facility]) (NEGATIVE) Result Diagrams: 06/26/20 06:36 06/26/20 06:36 Imaging Impressions Last 24 hrs: Chest x-ray: Opacities in the left base may represent atelectasis or pneumonia #1 Interpretation EKG Date: 06/26/20 Rhythm: A-Flutter (3:1 AV block) QRS: Other (Poor R wave progression) ST-T: Elevated (Minimal in inferior leads) Sepsis Event Note - Evaluation Sepsis Screening Result: No Definite Risk - Focused Exam Vital Signs: Vital Signs Temp Temp Pulse Pulse Resp BP BP 06/26/20 13:41 06/26/20 13:21 100 06/26/20 12:53 99.1 F 103 H 136/70 06/26/20 12:50 18 06/26/20 06:03 97.4 F 98 20 154/80 H Pulse Ox Pulse Ox 06/26/20 13:41 94 L 06/26/20 13:21 97 06/26/20 12:53 100 06/26/20 12:50 06/26/20 06:03 90 L - Problem List (1) Atrial flutter SNOMED Code(s): 4331150 ICD Code: I48.92 - UNSPECIFIED ATRIAL FLUTTER Status: Acute Current Visit: Yes (2) Thrombocytopenia SNOMED Code(s): 058420946 ICD Code: D69.6 - THROMBOCYTOPENIA, UNSPECIFIED Status: Acute Current Visit: Yes (3) Anemia, macrocytic SNOMED Code(s): 35710140 ICD Code: D53.9 - NUTRITIONAL ANEMIA, UNSPECIFIED Status: Acute Current Visit: Yes (4) Acute herpes zoster neuropathy SNOMED Code(s): 181616903 ICD Code: B02.23 - POSTHERPETIC POLYNEUROPATHY Status: Acute Current Visit: Yes (5) Lung cancer SNOMED Code(s): 055009843 ICD Code: C34.90 - MALIGNANT NEOPLASM OF UNSP PART OF UNSP BRONCHUS OR LUNG Status: Acute Current Visit: Yes Qualifiers: Laterality: right Lung location: lower lobe of lung Qualified Code(s): C34.31 - Malignant neoplasm of lower lobe, right bronchus or lung (6) Metastasis to brain Status: Acute Current Visit: Yes (7) Pneumonia SNOMED Code(s): 067668927 ICD Code: J18.9 - PNEUMONIA, UNSPECIFIED ORGANISM Status: Acute Priority: High Current Visit: Yes Qualifiers: Pneumonia type: due to unspecified organism Laterality: left Lung location: lower lobe of lung Qualified Code(s): J18.9 - Pneumonia, unspecified organism (8) Congestive heart failure (CHF) SNOMED Code(s): 06094281 ICD Code: I50.9 - HEART FAILURE, UNSPECIFIED Status: Acute Current Visit: No (9) CKD (chronic kidney disease) stage 3, GFR 30-59 ml/min SNOMED Code(s): 353383862 ICD Code: N18.3 - CHRONIC KIDNEY DISEASE, STAGE 3 (MODERATE) * DO NOT USE * Status: Chronic Priority: Medium Current Visit: No (10) COPD (chronic obstructive pulmonary disease) with chronic bronchitis SNOMED Code(s): 150620058 ICD Code: J44.9 - CHRONIC OBSTRUCTIVE PULMONARY DISEASE, UNSPECIFIED Status: Chronic Priority: Medium Current Visit: No (11) Diabetes mellitus type 2 SNOMED Code(s): 09756436 ICD Code: E11.9 - TYPE 2 DIABETES MELLITUS WITHOUT COMPLICATIONS Status: Chronic Priority: Medium Current Visit: No (12) HTN (hypertension) SNOMED Code(s): 37263951 ICD Code: I10 - ESSENTIAL (PRIMARY) HYPERTENSION Status: Chronic Priority: Medium Current Visit: No Qualifiers: Hypertension type: unspecified Qualified Code(s): I10 - Essential (primary) hypertension (13) Cellulitis of right leg SNOMED Code(s): 394309306 ICD Code: L03.115 - CELLULITIS OF RIGHT LOWER LIMB Status: Acute Current Visit: Yes Problem List Initiated/Reviewed/Updated: Yes Orders Last 24hrs: Active Orders 24 hr Category Date Time Status Admission Status [Patient Status] [ADT] Routine ADT 06/26/20 11:22 Active Implanted Port Access [RC] STAT Care 06/26/20 06:48 Active Oxygen Therapy [RC] PRN Care 06/26/20 13:41 Active RT Aerosol Therapy [RC] ASDIRECTED Care 06/26/20 15:07 Ordered Up With Assistance [RC] ASDIRECTED Care 06/26/20 13:41 Active VTE/DVT Education [RC] PER UNIT ROUTINE Care 06/26/20 13:41 Active Vital Signs [RC] Q4H Care 06/26/20 13:41 Active OT Evaluation and Treatment [CONS] Routine Cons 06/26/20 13:41 Active PT Evaluation and Treatment [CONS] Routine Cons 06/26/20 13:41 Active Consistent Carbohydrate Diet [DIET] Diet 06/26/20 Dinner Active CXR [Chest 1V Frontal] [CR] Stat Exams 06/26/20 06:22 Taken CULTURE BLOOD [BC] Stat Lab 06/26/20 06:36 Received CULTURE BLOOD [BC] Stat Lab 06/26/20 06:52 Received CULTURE URINE [RM] Stat Lab 06/26/20 08:32 Results Acetaminophen [TylenoL] Med 06/26/20 13:41 Active 650 mg PO Q4H PRN Acetaminophen/oxyCODONE [Percocet 325-5 MG] Med 06/26/20 15:01 Ordered 1 - 2 each PO Q4H PRN Albuterol Med 06/26/20 15:01 Ordered 2 puff INH QID PRN Arformoterol Med 06/26/20 21:00 Ordered 1 inh INH BID Aspirin Med 06/27/20 09:00 Ordered 81 mg PO DAILY Benzonatate [Tessalon Perles] Med 06/26/20 15:01 Ordered 100 mg PO Q4HR PRN Budesonide [Pulmicort] Med 06/26/20 21:00 Ordered 1 ampule INH BID Calcium Carb/Magnesium Hydrox [Antacid Chewable Tablet] Med 06/26/20 15:01 Ordered 1,000 mg PO DAILY PRN Carboxymethylcellulose Sodium [Refresh Liquigel 1%] Med 06/26/20 17:00 Ordered 1 dose EYEBOTH QID Clopidogrel [Plavix] Med 06/27/20 09:00 Ordered 75 mg PO DAILY Enoxaparin [Lovenox] Med 06/27/20 09:00 Pending 40 mg SUBCUT DAILY Fluticasone Propionate [Flonase] Med 06/27/20 09:00 Ordered 2 spray NASBOTH DAILY Furosemide [Lasix] Med 06/26/20 15:09 Once 40 mg IVPUSH NOW ONE Gabapentin [Neurontin] Med 06/26/20 21:00 Ordered 100 mg PO BID Incruse Ellipta 62.5mcg/Inh Med 06/26/20 21:00 Ordered 1 puff INH BID Ipratropium Med 06/26/20 21:00 Ordered 2 puff INH TID Isosorbide Mononitrate [Imdur] Med 06/27/20 09:00 Ordered 120 mg PO DAILY Levothyroxine [Synthroid] Med 06/27/20 09:00 Ordered 50,000 mcg PO DAILY Metoprolol Tartrate [Lopressor] Med 06/26/20 21:00 Ordered 50 mg PO BID Montelukast [Singulair] Med 06/26/20 21:00 Ordered 10 mg PO BEDTIME Nitroglycerin [Nitrostat] Med 06/26/20 15:01 Ordered 0.4 mg SL ASDIRECTED PRN Omeprazole [Omeprazole] Med 06/27/20 09:00 Ordered 40 mg PO DAILY Ondansetron [Zofran] Med 06/26/20 13:41 Active 4 mg IV Q4H PRN Ranolazine [Ranexa] Med 06/26/20 21:00 Ordered 500 mg PO BID Rosuvastatin Calcium [Rosuvastatin Calcium] Med 06/27/20 09:00 Ordered 20 mg PO DAILY Sodium Chloride 0.9% [Normal Saline] 1,000 ml Med 06/26/20 06:30 Active IV ASDIRECTED Tamsulosin [Flomax] Med 06/26/20 21:00 Ordered 0.8 mg PO BEDTIME captopriL [Capoten] Med 06/26/20 21:00 Ordered 50 mg PO BID cefTRIAXone [Rocephin] 2 gm Med 06/26/20 09:15 Active Sodium Chloride 0.9% [Normal Saline] 100 ml IV Q24H dexAMETHasone Med 06/27/20 09:00 Ordered 8 mg PO DAILY diazePAM [Valium] Med 06/26/20 15:01 Ordered 2 mg PO Q6HR PRN guaiFENesin [Mucinex] Med 06/26/20 21:00 Ordered 600 mg PO BID valACYclovir [Valtrex] Med 06/26/20 21:00 Ordered 1,000 mg PO TID Blood Culture x2 Reflex Set [OM.PC] Stat Oth 06/26/20 06:23 Ordered Resuscitation Status Routine Resus Stat 06/26/20 13:41 Ordered Medication Orders Acetaminophen (Tylenol) 650 mg PO Q4H PRN PRN Reason: Pain (Mild 1-3)/fever Artificial Tears (Refresh Liquigel 1%) ml EYEBOTH QID [facility] Aspirin (Aspirin) 81 mg PO DAILY [facility] Benzonatate (Tessalon Perles) 100 mg PO Q4HR PRN PRN Reason: Cough Budesonide (Pulmicort) mg INH BID [facility] Clopidogrel Bisulfate (Plavix) 75 mg PO DAILY [facility] Diazepam (Valium) 2 mg PO Q6HR PRN PRN Reason: Anxiety Enoxaparin Sodium (Lovenox) 40 mg SUBCUT DAILY [facility] Fluticasone Propionate (Flonase) gm NASBOTH DAILY [facility] Furosemide (Lasix) 40 mg IVPUSH NOW ONE Stop: 06/26/20 15:10 Gabapentin (Neurontin) 100 mg PO BID [facility] Guaifenesin (Mucinex) 600 mg PO BID [facility] Sodium Chloride (Normal Saline) 1,000 mls @ 100 mls/hr IV ASDIRECTED [facility] Last Admin: 06/26/20 06:38 Dose: 100 mls/hr Documented by: EVARISTO Ceftriaxone Sodium 2 gm/ (Sodium Chloride) 100 mls @ 200 mls/hr IV Q24H [facility] Last Admin: 06/26/20 09:39 Dose: 200 mls/hr Documented by: MARQUEZ Isosorbide Mononitrate (Imdur) 120 mg PO DAILY [facility] Levothyroxine Sodium (Synthroid) 50,000 mcg PO DAILY [facility] Metoprolol Tartrate (Lopressor) 50 mg PO BID [facility] Montelukast Sodium (Singulair) 10 mg PO BEDTIME [facility] Nitroglycerin (Nitrostat) 0.4 mg SL ASDIRECTED PRN PRN Reason: Chest Pain Non-Formulary Medication (Albuterol) 2 puff INH QID PRN PRN Reason: Shortness of Breath Non-Formulary Medication (Arformoterol) 1 inh INH BID [facility] Non-Formulary Medication (Calcium Carb/Magnesium Hydrox [Antacid Chewable Tablet]) 1,000 mg PO DAILY PRN PRN Reason: Heartburn Non-Formulary Medication (Captopril [Capoten]) 50 mg PO BID [facility] Non-Formulary Medication (Dexamethasone) 8 mg PO DAILY [facility] Non-Formulary Medication (Incruse Ellipta 62.5mcg/Inh) 1 puff INH BID [facility] Non-Formulary Medication (Ipratropium) 2 puff INH TID [facility] Non-Formulary Medication (Omeprazole [Omeprazole]) 40 mg PO DAILY [facility] Non-Formulary Medication (Rosuvastatin Calcium [Rosuvastatin Calcium]) 20 mg PO DAILY [facility] Ondansetron HCl (Zofran) 4 mg IV Q4H PRN PRN Reason: Nausea/Vomiting Oxycodone/Acetaminophen (Percocet 325-5 Mg) tab PO Q4H PRN PRN Reason: pain relief. 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 * Started on dexamethasone 8 mg daily by his oncologist on 06/21/2020 for 7 days then to decrease to 4 mg daily * Records from oncology states he was to have venous duplex lower extremity Dopplers bilaterally on 06/22/2020 * Exacerbation of CHF * proBNP 1251 * Significant lower extremity edema * Left lower lobe pneumonia versus atelectasis. * Patient has a normal WBC with no shift * Covid negative * CRP elevated at 11.9, but this is nonspecific and may be secondary to his cancer * Given Rocephin in the emergency department * Right lower extremity cellulitis with diabetic ulcer * Chronic lower extremity edema * Getting almost daily wraps to the right lower extremity * Significant erythema and weeping of the lower extremity * Right shoulder shingles * Started on Valtrex yesterday in the ER * Also on Percocet for pain. Patient developed shaking chills this morning after taking 2 Percocet * Insulin-dependent type 2 diabetes * Patient was found to have a blood sugar of 43 on admission to the floor. He was given 1 amp 50% glucose * Home records indicate he is on glargine 42 units twice daily. The records from [place] state, "inject 84 units subcutaneously 1 time per day Take 42 units in the a.m. and 42 units in the p.m." * Home meds: NovoLog 70 to 75 units subcutaneously 3 times a day with meals * Hemoglobin A1c 7.4 * COPD * On home O2 between 3 and 4 L/min * Currently on 2 L with oxygen saturations in the upper 90s * On Brovana, budesonide, albuterol, Singulair, Incruse Ellipta * Stop smoking several years ago * Finished azithromycin prescribed by Dr. Guillermo yesterday * Stage III chronic renal insufficiency * Estimated GFR 45, creatinine 1.5, BUN 41 * Elevated bilirubin of 1.5 with normal liver enzymes * Hypoalbuminemiaalbumin 2.7 * Thrombocytopeniaplatelets 106 Chronic: Hypothyroid, hypertension, peripheral neuropathy, vertigo, coronary artery disease, chronic cough, chronic lower extremity edema, BPH Plan * Admit to medical floor on telemetry * Continue Rocephin 2 g every 24 hours * Blood cultures * Urine for strep antigen * Procalcitonin * Follow CBC, CMP, CRP, mag, Phos * Give Lasix 40 mg IV now * Physical therapy consult * Wound therapy consult * Gentle diuresis * Renally dose medications * Continue Valtrex and Percocet for pain * FiO2 to keep SPO2 between 92 and 97%. It appears he is actually doing better here in the hospital than he normally does at home. SPO2 goal may need to be lower depending on his lung disease. * Dietary consult secondary to hypoalbuminemia * Check TSH in the morning * Decrease insulin secondary to significant hypoglycemia on arrival to the floor. * Give glargine 20 units twice daily and medium dose sliding scale insulin. Patient will very likely require prandial insulin, but would like to avoid the severe hypoglycemia he had today. He also will likely have elevated blood s ugar secondary to dexamethasone. * VTE prophylaxis with Lovenox. * CODE STATUS: DNR/DNI * Length of stay depending on progress with physical therapy and edema. - Mortality Measure Prognosis:: Poor
[2020-06-26] MEDS ORDERED: Insulin Glarg,Human.Rec.Analog 100 Unit/ML SUBCUT SCH (16:00)
[2020-06-26 16:05] LABS: HEMOGLOBIN A1C 7.4 % (4.50-6.20)
[2020-06-26] MEDS: Insulin Lispro 100 Units/ML 3 ML Vial SUBCUT SCH ×2 (18:42→22:34)
[2020-06-26] MEDS: Carboxymethylcellulose Sodium 1% Ophth Gel 15 ML Bottle EYEBOTH SCH ×2 (18:42→22:29)
[2020-06-26] MEDS: Budesonide 0.25 MG/2 ML Neb Susp INH SCH (20:44)
[2020-06-26] MEDS: Arformoterol 15 MCG/2 ML Neb Soln INH SCH (20:44)
[2020-06-26] MEDS ORDERED: Glycopyrrolate 15.6 MCG Cap.W.Dev Kit of 6 IH SCH (21:00)
[2020-06-26] MEDS ORDERED: valACYclovir 1,000 MG Tab PO SCH (21:00)
[2020-06-26] MEDS: Tamsulosin 0.4 MG Cap.ER PO SCH (22:26)
[2020-06-26] MEDS: Metoprolol Tartrate 50 MG Tab PO SCH (22:27)
[2020-06-26] MEDS: Montelukast 10 MG Tab PO SCH (22:27)
[2020-06-26] MEDS: Gabapentin 100 MG Cap PO SCH (22:27)
[2020-06-26] MEDS: guaiFENesin 600 MG Tab.ER PO SCH (22:28)
[2020-06-26] MEDS: valACYclovir 1,000 MG Tab PO SCH (22:30)
[2020-06-26] MEDS ORDERED: Insulin Glarg,Human.Rec.Analog 100 Unit/ML SUBCUT STA (22:36)
[2020-06-27] MEDS: Arformoterol 15 MCG/2 ML Neb Soln INH SCH ×3 (05:57→21:37)
[2020-06-27] MEDS: Levothyroxine 50 MCG Tab PO SCH (06:08)
[2020-06-27] MEDS: Pantoprazole 40 MG Tab.CR PO SCH (06:09)
[2020-06-27] MEDS: Glycopyrrolate 15.6 MCG Cap.W.Dev Kit of 6 IH SCH ×2 (06:19→21:25)
[2020-06-27] MEDS: Budesonide 0.25 MG/2 ML Neb Susp INH SCH ×2 (06:19→21:25)
[2020-06-27] MEDS ORDERED: Calcium Carbonate 500 MG Tab.Chew PO PRN (07:19)
[2020-06-27] MEDS: Albuterol 6.7 GM Inhaler INH PRN ×2 (07:43→21:25)
[2020-06-27] MEDS: Enoxaparin 40 MG/0.4 ML Syringe SUBCUT SCH (09:05)
[2020-06-27] MEDS: Insulin Lispro 100 Units/ML 3 ML Vial SUBCUT SCH ×4 (09:05→21:06)
[2020-06-27] MEDS: Insulin Glarg,Human.Rec.Analog 100 Unit/ML SUBCUT SCH ×2 (09:06→17:20)
[2020-06-27] MEDS: Carboxymethylcellulose Sodium 1% Ophth Gel 15 ML Bottle EYEBOTH SCH ×4 (09:06→21:06)
[2020-06-27] MEDS: Fluticasone Propionate Nasal Spray 16 GM Bottle NASBOTH SCH (09:06)
[2020-06-27] MEDS: Isosorbide Mononitrate 60 MG Tab.ER PO SCH (09:07)
[2020-06-27] MEDS: valACYclovir 1,000 MG Tab PO SCH ×2 (09:07→21:05)
[2020-06-27] MEDS: cefTRIAXone 2 GM in Sodium Chloride 0.9% 100 ML IV SCH (09:07)
[2020-06-27] MEDS: Rosuvastatin 10 MG Tab PO SCH (09:07)
[2020-06-27] MEDS: Gabapentin 100 MG Cap PO SCH ×2 (09:08→21:05)
[2020-06-27] MEDS: Aspirin 81 MG Tab.Chew PO SCH (09:08)
[2020-06-27] MEDS: Clopidogrel 75 MG Tab PO SCH (09:08)
[2020-06-27] MEDS: Metoprolol Tartrate 50 MG Tab PO SCH ×2 (09:08→21:05)
[2020-06-27] MEDS: Dexamethasone 4 MG Tab PO SCH (09:08)
[2020-06-27] MEDS: guaiFENesin 600 MG Tab.ER PO SCH ×2 (09:08→21:06)
--- NOTE | 2020-06-27 09:55 | CR ---
PROCEDURE INFORMATION: Exam: XR Chest, 1 View Exam date and time: 06/26/2020 6:49 AM Age: 80 years old Clinical indication: Other: Chills, lug cancer; Patient HX: I attached the prior x-ray and CT reports to the current images. TECHNIQUE: Imaging protocol: XR of the chest Views: 1 view. COMPARISON: CR Chest 1V Frontal 05/05/2020 7:05 AM FINDINGS: Tubes, catheters and devices: Overlying EKG wires Lungs: Opacities in the left base may represent atelectasis or pneumonia. . Pleural space: Unremarkable. No pleural effusion. No pneumothorax. Heart/Mediastinum: Unremarkable. No cardiomegaly. Vasculature: MediPort terminates in the superior vena cava Bones/joints: Unremarkable. IMPRESSION: Opacities in the left base may represent atelectasis or pneumonia. . Thank you for allowing us to participate in the care of your patient. Dictated and Authenticated by: Rafiq Javier MD 06/26/2020 8:42 AM Central Time ([place] & [place]) LISA
[2020-06-27] MEDS ORDERED: Vancomycin 2 GM in Sodium Chloride 0.9% 500 ML IV ONE (12:00)
--- NOTE | 2020-06-27 15:52 | PCM.PN ---
- General Info Date of Service: 06/27/20 Admission Dx/Problem (Free Text): Admission Diagnosis/Problem Admission Diagnosis/Problem Pneumonia Subjective Update: When I saw the patient he was awake, oriented, and feeling well. He denied any significant pain. Nursing states he slept most of the morning was hard to arouse and again slept most of the afternoon. He states that he has not had a good night sleep in months and he was able to do so here. Diet is good. Functional Status: Reports: Tolerating Diet - Review of Systems General: Reports: Fatigue HEENT: Reports: No Symptoms Pulmonary: Reports: Cough Cardiovascular: Reports: No Symptoms Gastrointestinal: Reports: No Symptoms Musculoskeletal: Reports: No Symptoms Psychiatric: Reports: No Symptoms - Patient Data Vitals - Most Recent: Last Vital Signs Temp 97.5 F 06/27/20 12:10 Pulse 71 06/27/20 12:10 Resp 14 06/27/20 14:00 BP 115/45 L 06/27/20 12:11 Pulse Ox 97 06/27/20 12:10 Weight - Most Recent: 236 lb 11.2 oz I&O - Last 24 Hours: Intake & Output 06/27/20 06/27/20 06/27/20 06:59 14:59 22:59 Intake Total 400 90 Output Total 2900 Balance -2500 90 Lab Results Last 24 Hours: Laboratory Results - last 24 hr 06/26/20 06/26/20 06/26/20 Range/Units 06:36 17:10 17:14 WBC (4.23-9.07) K/mm3 RBC (4.63-6.08) M/mm3 Hgb (13.7-17.5) gm/dl Hct (40.1-51.0) % MCV (79.0-92.2) fl MCH (25.7-32.2) pg MCHC (32.2-35.5) g/dl RDW Std Deviation (35.1-43.9) fL Plt Count (163-337) K/mm3 MPV (9.4-12.3) fl Neut % (Auto) (34.0-67.9) % Lymph % (Auto) (21.8-53.1) % [place] % (Auto) (5.3-12.2) % Eos % (Auto) (0.8-7.0) Baso % (Auto) (0.1-1.2) % Neut # (Auto) (1.78-5.38) K/mm3 Lymph # (Auto) (1.32-3.57) K/mm3 [place] # (Auto) (0.30-0.82) K/mm3 Eos # (Auto) (0.04-0.54) K/mm3 Baso # (Auto) (0.01-0.08) K/mm3 Manual Slide Review Puncture Site ABG pH (7.35-7.45) ABG pCO2 (35.0-45.0) mmHg ABG pO2 (80.0-100.0) mmHg ABG HCO3 (22.0-26.0) meq/L ABG O2 Saturation (96.0-97.0) % ABG Base Excess (-2-2.0) Alfredo Test A-a Gradient mmHg O2 Delivery Device Oxygen Flow Rate FiO2 (21.00-100.00) % Sodium (136-145) mEq/L Potassium (3.5-5.1) mEq/L Chloride (98-107) mEq/L Carbon Dioxide (21-32) mEq/L Anion Gap (5-15) BUN (7-18) mg/dL Creatinine (0.7-1.3) mg/dL Est Cr Clr Drug Dosing mL/min Estimated GFR (MDRD) (>60) mL/min BUN/Creatinine Ratio (14-18) Glucose (83-115) mg/dL POC Glucose 43 L (83-110) mg/dL Hemoglobin A1c 7.40 H (4.50-6.20) % Calcium (8.5-10.1) mg/dL Phosphorus (2.6-4.7) mg/dL Magnesium (1.8-2.4) mg/dl Total Bilirubin (0.2-1.0) mg/dL AST (15-37) U/L ALT (16-63) U/L Alkaline Phosphatase (46-116) U/L C-Reactive Protein (<1.0) mg/dL Total Protein (6.4-8.2) g/dl Albumin (3.4-5.0) g/dl Globulin gm/dL Albumin/Globulin Ratio (1-2) Urine Color Yellow (Yellow) Urine Appearance Clear (Clear) Urine pH 7.0 (5.0-8.0) Ur Specific [place] 1.020 (1.005-1.030) Urine Protein 2+ H (Negative) Urine Glucose (UA) Negative (Negative) Urine Ketones Negative (Negative) Urine Occult Blood Trace-lysed H (Negative) Urine Nitrite Negative (Negative) Urine Bilirubin Negative (Negative) Urine Urobilinogen 2.0 H (0.2-1.0) Ur Leukocyte Esterase Negative (Negative) U Hyaline Cast (Auto) 0-5 (0-5) /lpf Urine RBC 0-5 (0-5) /hpf Urine WBC Not seen (0-5) /hpf Ur Squamous Epith Cells 0-5 (0-5) /hpf Urine Bacteria Few (FEW) /hpf Urine Mucus Rare (FEW) /hpf 06/26/20 06/26/20 06/27/20 Range/Units 17:42 22:33 02:43 WBC (4.23-9.07) K/mm3 RBC (4.63-6.08) M/mm3 Hgb (13.7-17.5) gm/dl Hct (40.1-51.0) % MCV (79.0-92.2) fl MCH (25.7-32.2) pg MCHC (32.2-35.5) g/dl RDW Std Deviation (35.1-43.9) fL Plt Count (163-337) K/mm3 MPV (9.4-12.3) fl Neut % (Auto) (34.0-67.9) % Lymph % (Auto) (21.8-53.1) % [place] % (Auto) (5.3-12.2) % Eos % (Auto) (0.8-7.0) Baso % (Auto) (0.1-1.2) % Neut # (Auto) (1.78-5.38) K/mm3 Lymph # (Auto) (1.32-3.57) K/mm3 [place] # (Auto) (0.30-0.82) K/mm3 Eos # (Auto) (0.04-0.54) K/mm3 Baso # (Auto) (0.01-0.08) K/mm3 Manual Slide Review Puncture Site ABG pH (7.35-7.45) ABG pCO2 (35.0-45.0) mmHg ABG pO2 (80.0-100.0) mmHg ABG HCO3 (22.0-26.0) meq/L ABG O2 Saturation (96.0-97.0) % ABG Base Excess (-2-2.0) Alfredo Test A-a Gradient mmHg O2 Delivery Device Oxygen Flow Rate FiO2 (21.00-100.00) % Sodium (136-145) mEq/L Potassium (3.5-5.1) mEq/L Chloride (98-107) mEq/L Carbon Dioxide (21-32) mEq/L Anion Gap (5-15) BUN (7-18) mg/dL Creatinine (0.7-1.3) mg/dL Est Cr Clr Drug Dosing mL/min Estimated GFR (MDRD) (>60) mL/min BUN/Creatinine Ratio (14-18) Glucose (83-115) mg/dL POC Glucose 96 124 H 90 (83-110) mg/dL Hemoglobin A1c (4.50-6.20) % Calcium (8.5-10.1) mg/dL Phosphorus (2.6-4.7) mg/dL Magnesium (1.8-2.4) mg/dl Total Bilirubin (0.2-1.0) mg/dL AST (15-37) U/L ALT (16-63) U/L Alkaline Phosphatase (46-116) U/L C-Reactive Protein (<1.0) mg/dL Total Protein (6.4-8.2) g/dl Albumin (3.4-5.0) g/dl Globulin gm/dL Albumin/Globulin Ratio (1-2) Urine Color (Yellow) Urine Appearance (Clear) Urine pH (5.0-8.0) Ur Specific [place] (1.005-1.030) Urine Protein (Negative) Urine Glucose (UA) (Negative) Urine Ketones (Negative) Urine Occult Blood (Negative) Urine Nitrite (Negative) Urine Bilirubin (Negative) Urine Urobilinogen (0.2-1.0) Ur Leukocyte Esterase (Negative) U Hyaline Cast (Auto) (0-5) /lpf Urine RBC (0-5) /hpf Urine WBC (0-5) /hpf Ur Squamous Epith Cells (0-5) /hpf Urine Bacteria (FEW) /hpf Urine Mucus (FEW) /hpf 06/27/20 06/27/20 06/27/20 Range/Units 05:51 05:51 05:51 WBC 6.48 (4.23-9.07) K/mm3 RBC 2.99 L (4.63-6.08) M/mm3 Hgb 9.2 L D (13.7-17.5) gm/dl Hct 30.0 L (40.1-51.0) % MCV 100.3 H (79.0-92.2) fl MCH 30.8 (25.7-32.2) pg MCHC 30.7 L (32.2-35.5) g/dl RDW Std Deviation 56.7 H (35.1-43.9) fL Plt Count 95 L (163-337) K/mm3 MPV 10.1 (9.4-12.3) fl Neut % (Auto) 89.7 H (34.0-67.9) % Lymph % (Auto) 4.0 L (21.8-53.1) % [place] % (Auto) 4.5 L (5.3-12.2) % Eos % (Auto) 0.5 L (0.8-7.0) Baso % (Auto) 0.2 (0.1-1.2) % Neut # (Auto) 5.82 H (1.78-5.38) K/mm3 Lymph # (Auto) 0.26 L (1.32-3.57) K/mm3 [place] # (Auto) 0.29 L (0.30-0.82) K/mm3 Eos # (Auto) 0.03 L (0.04-0.54) K/mm3 Baso # (Auto) 0.01 (0.01-0.08) K/mm3 Manual Slide Review Abnormal smear Puncture Site ABG pH (7.35-7.45) ABG pCO2 (35.0-45.0) mmHg ABG pO2 (80.0-100.0) mmHg ABG HCO3 (22.0-26.0) meq/L ABG O2 Saturation (96.0-97.0) % ABG Base Excess (-2-2.0) Alfredo Test A-a Gradient mmHg O2 Delivery Device Oxygen Flow Rate FiO2 (21.00-100.00) % Sodium 136 (136-145) mEq/L Potassium 4.2 (3.5-5.1) mEq/L Chloride 97 L (98-107) mEq/L Carbon Dioxide 35 H (21-32) mEq/L Anion Gap 8.2 (5-15) BUN 32 H (7-18) mg/dL Creatinine 1.5 H (0.7-1.3) mg/dL Est Cr Clr Drug Dosing 46.94 mL/min Estimated GFR (MDRD) 45 (>60) mL/min BUN/Creatinine Ratio 21.3 H (14-18) Glucose 167 H (83-115) mg/dL POC Glucose 168 H (83-110) mg/dL Hemoglobin A1c (4.50-6.20) % Calcium 8.2 L (8.5-10.1) mg/dL Phosphorus 3.2 (2.6-4.7) mg/dL Magnesium 1.8 (1.8-2.4) mg/dl Total Bilirubin 1.2 H (0.2-1.0) mg/dL AST 12 L (15-37) U/L ALT 24 (16-63) U/L Alkaline Phosphatase 46 (46-116) U/L C-Reactive Protein 25.6 H* (<1.0) mg/dL Total Protein 5.3 L (6.4-8.2) g/dl Albumin 1.9 L (3.4-5.0) g/dl Globulin 3.4 gm/dL Albumin/Globulin Ratio 0.6 L (1-2) Urine Color (Yellow) Urine Appearance (Clear) Urine pH (5.0-8.0) Ur Specific [place] (1.005-1.030) Urine Protein (Negative) Urine Glucose (UA) (Negative) Urine Ketones (Negative) Urine Occult Blood (Negative) Urine Nitrite (Negative) Urine Bilirubin (Negative) Urine Urobilinogen (0.2-1.0) Ur Leukocyte Esterase (Negative) U Hyaline Cast (Auto) (0-5) /lpf Urine RBC (0-5) /hpf Urine WBC (0-5) /hpf Ur Squamous Epith Cells (0-5) /hpf Urine Bacteria (FEW) /hpf Urine Mucus (FEW) /hpf 06/27/20 06/27/20 Range/Units 11:47 12:01 WBC (4.23-9.07) K/mm3 RBC (4.63-6.08) M/mm3 Hgb (13.7-17.5) gm/dl Hct (40.1-51.0) % MCV (79.0-92.2) fl MCH (25.7-32.2) pg MCHC (32.2-35.5) g/dl RDW Std Deviation (35.1-43.9) fL Plt Count (163-337) K/mm3 MPV (9.4-12.3) fl Neut % (Auto) (34.0-67.9) % Lymph % (Auto) (21.8-53.1) % [place] % (Auto) (5.3-12.2) % Eos % (Auto) (0.8-7.0) Baso % (Auto) (0.1-1.2) % Neut # (Auto) (1.78-5.38) K/mm3 Lymph # (Auto) (1.32-3.57) K/mm3 [place] # (Auto) (0.30-0.82) K/mm3 Eos # (Auto) (0.04-0.54) K/mm3 Baso # (Auto) (0.01-0.08) K/mm3 Manual Slide Review Puncture Site Lt radial ABG pH 7.50 H (7.35-7.45) ABG pCO2 44.1 (35.0-45.0) mmHg ABG pO2 65.0 L (80.0-100.0) mmHg ABG HCO3 34.3 H (22.0-26.0) meq/L ABG O2 Saturation 91.5 L (96.0-97.0) % ABG Base Excess 10.3 H (-2-2.0) Alfredo Test Positive A-a Gradient 80 mmHg O2 Delivery Device Nasal cannula Oxygen Flow Rate 2.0 FiO2 28.00 (21.00-100.00) % Sodium (136-145) mEq/L Potassium (3.5-5.1) mEq/L Chloride (98-107) mEq/L Carbon Dioxide (21-32) mEq/L Anion Gap (5-15) BUN (7-18) mg/dL Creatinine (0.7-1.3) mg/dL Est Cr Clr Drug Dosing mL/min Estimated GFR (MDRD) (>60) mL/min BUN/Creatinine Ratio (14-18) Glucose (83-115) mg/dL POC Glucose 202 H (83-110) mg/dL Hemoglobin A1c (4.50-6.20) % Calcium (8.5-10.1) mg/dL Phosphorus (2.6-4.7) mg/dL Magnesium (1.8-2.4) mg/dl Total Bilirubin (0.2-1.0) mg/dL AST (15-37) U/L ALT (16-63) U/L Alkaline Phosphatase (46-116) U/L C-Reactive Protein (<1.0) mg/dL Total Protein (6.4-8.2) g/dl Albumin (3.4-5.0) g/dl Globulin gm/dL Albumin/Globulin Ratio (1-2) Urine Color (Yellow) Urine Appearance (Clear) Urine pH (5.0-8.0) Ur Specific [place] (1.005-1.030) Urine Protein (Negative) Urine Glucose (UA) (Negative) Urine Ketones (Negative) Urine Occult Blood (Negative) Urine Nitrite (Negative) Urine Bilirubin (Negative) Urine Urobilinogen (0.2-1.0) Ur Leukocyte Esterase (Negative) U Hyaline Cast (Auto) (0-5) /lpf Urine RBC (0-5) /hpf Urine WBC (0-5) /hpf Ur Squamous Epith Cells (0-5) /hpf Urine Bacteria (FEW) /hpf Urine Mucus (FEW) /hpf Michael Results Last 24 Hours: Microbiology 06/26/20 08:32 Urine Culture - Preliminary Urine, Clean Catch Gram Negative Rods 06/26/20 06:52 Aerobic Blood Culture - Preliminary Blood - Venous - Lab Draw NO GROWTH AFTER 1 DAY Anaerobic Blood Culture - Preliminary NO GROWTH AFTER 1 DAY 06/26/20 06:36 Aerobic Blood Culture - Preliminary Blood - Venous NO GROWTH AFTER 1 DAY Anaerobic Blood Culture - Preliminary NO GROWTH AFTER 1 DAY Med Orders - Current: Current Medications Acetaminophen (Tylenol) 650 mg PO Q4H PRN PRN Reason: Pain (Mild 1-3)/fever Albuterol (Proventil Hfa) 0 gm INH QID PRN PRN Reason: Shortness of Breath Last Admin: 06/27/20 07:43 Dose: 2 puff Documented by: Arformoterol Tartrate (Brovana) 15 mcg INH BIDRT [facility] Last Admin: 06/27/20 07:44 Dose: 15 mcg Documented by: Artificial Tears (Refresh Liquigel 1%) 0 ml EYEBOTH QID [facility] Last Admin: 06/27/20 13:48 Dose: 1 drop Documented by: Aspirin (Aspirin) 81 mg PO DAILY [facility] Last Admin: 06/27/20 09:08 Dose: 81 mg Documented by: Benzonatate (Tessalon Perles) 100 mg PO Q4HR PRN PRN Reason: Cough Budesonide (Pulmicort) 0.25 mg INH BIDRT [facility] Last Admin: 06/27/20 06:19 Dose: 0.25 mg Documented by: Calcium Carbonate/Glycine (Tums) 1,000 mg PO DAILY PRN PRN Reason: Heartburn Captopril (Capoten) 50 mg PO BIDAC [facility] Last Admin: 06/27/20 06:08 Dose: 50 mg Documented by: Clopidogrel Bisulfate (Plavix) 75 mg PO DAILY [facility] Last Admin: 06/27/20 09:08 Dose: 75 mg Documented by: Dexamethasone (Dexamethasone) 8 mg PO DAILY [facility] Last Admin: 06/27/20 09:08 Dose: 8 mg Documented by: Dextrose/Water (Dextrose 50% In Water) 50 ml IV ASDIRECTED PRN PRN Reason: Hypoglycemia Last Admin: 06/26/20 17:19 Dose: 50 ml Documented by: Diazepam (Valium) 2 mg PO Q6HR PRN PRN Reason: Anxiety Enoxaparin Sodium (Lovenox) 40 mg SUBCUT DAILY [facility] Last Admin: 06/27/20 09:05 Dose: 40 mg Documented by: Fluticasone Propionate (Flonase) 0 gm NASBOTH DAILY [facility] Last Admin: 06/27/20 09:06 Dose: 2 spray Documented by: Gabapentin (Neurontin) 100 mg PO BID [facility] Last Admin: 06/27/20 09:08 Dose: 100 mg Documented by: Glycopyrrolate (Seebri Neohaler) 15.6 mcg IH BIDRT [facility] Last Admin: 06/27/20 06:19 Dose: 1 cap Documented by: Guaifenesin (Mucinex) 600 mg PO BID [facility] Last Admin: 06/27/20 09:08 Dose: 600 mg Documented by: Ceftriaxone Sodium 2 gm/ (Sodium Chloride) 100 mls @ 200 mls/hr IV Q24H [facility] Last Admin: 06/27/20 09:07 Dose: 200 mls/hr Documented by: Vancomycin HCl 1 gm/Vancomycin HCl 500 mg/ Sodium Chloride 500 mls @ 250 mls/hr IV Q18H [facility] Insulin Glargine (Lantus) 20 unit SUBCUT BIDAC [facility] Last Admin: 06/27/20 09:06 Dose: 20 units Documented by: Insulin Human Lispro (Humalog) 0 unit SUBCUT QIDACANDBED [facility]; Protocol Last Admin: 06/27/20 12:02 Dose: 4 units Documented by: Isosorbide Mononitrate (Imdur) 120 mg PO DAILY [facility] Last Admin: 06/27/20 09:07 Dose: 120 mg Documented by: Levothyroxine Sodium (Synthroid) 50 mcg PO ACBRK [facility] Last Admin: 06/27/20 06:08 Dose: 50 mcg Documented by: Metoprolol Tartrate (Lopressor) 50 mg PO BID [facility] Last Admin: 06/27/20 09:08 Dose: 50 mg Documented by: Montelukast Sodium (Singulair) 10 mg PO BEDTIME [facility] Last Admin: 06/26/20 22:27 Dose: 10 mg Documented by: Nitroglycerin (Nitrostat) 0.4 mg SL ASDIRECTED PRN PRN Reason: Chest Pain Ondansetron HCl (Zofran) 4 mg IV Q4H PRN PRN Reason: Nausea/Vomiting Oxycodone/Acetaminophen (Percocet 325-5 Mg) 1 - 2 tab PO Q4H PRN PRN Reason: pain relief. Pantoprazole Sodium (Protonix) 40 mg PO DAILY@0700 [facility] Last Admin: 06/27/20 06:09 Dose: 40 mg Documented by: Ranolazine (Ranexa) 500 mg PO BID [facility] Last Admin: 06/27/20 09:07 Dose: 500 mg Documented by: Rosuvastatin Calcium (Crestor) 20 mg PO DAILY [facility] Last Admin: 06/27/20 09:07 Dose: 20 mg Documented by: Tamsulosin HCl (Flomax) 0.8 mg PO BEDTIME [facility] Last Admin: 06/26/20 22:26 Dose: 0.8 mg Documented by: Valacyclovir HCl (Valtrex) 1,000 mg PO Q12H [facility] Last Admin: 06/27/20 09:07 Dose: 1,000 mg Documented by: Vancomycin HCl (Pharmacy To Dose - Vancomycin) 1 dose .XX ASDIRECTED PRN PRN Reason: RX TO DOSE VANCO Discontinued Medications Arformoterol Tartrate (Brovana) 15 mcg INH BIDRT [facility] Last Admin: 06/27/20 05:57 Dose: Not Given Documented by: Captopril (Capoten) 50 mg PO BIDAC [facility] Last Admin: 06/26/20 21:24 Dose: Not Given Documented by: Diphenhydramine HCl (Benadryl) 25 mg IVPUSH ONETIME ONE Stop: 06/26/20 06:22 Last Admin: 06/26/20 06:38 Dose: 25 mg Documented by: Furosemide (Lasix) 40 mg IVPUSH NOW ONE Stop: 06/26/20 18:01 Last Admin: 06/26/20 18:43 Dose: 40 mg Documented by: Glycopyrrolate (Seebri Neohaler) 15.6 mcg IH BID [facility] Last Admin: 06/26/20 20:44 Dose: 1 cap Documented by: Sodium Chloride (Normal Saline) 1,000 mls @ 100 mls/hr IV ASDIRECTED [facility] Last Admin: 06/26/20 06:38 Dose: 100 mls/hr Documented by: Vancomycin HCl 2 gm/ Sodium (Chloride) 500 mls @ 250 mls/hr IV ONETIME ONE Stop: 06/27/20 13:59 Last Admin: 06/27/20 11:56 Dose: 250 mls/hr Documented by: Insulin Glargine (Lantus) 40 unit SUBCUT BIDAC [facility] Last Admin: 06/26/20 21:25 Dose: Not Given Documented by: Insulin Glargine (Lantus) 20 unit SUBCUT NOW STA Stop: 06/26/20 22:37 Last Admin: 06/26/20 22:54 Dose: 20 units Documented by: Lorazepam (Ativan) 0.5 mg IVPUSH ONETIME ONE Stop: 06/26/20 06:23 Last Admin: 06/26/20 06:39 Dose: 0.5 mg Documented by: Non-Formulary Medication (Incruse Ellipta 62.5mcg/Inh) 1 puff INH BID [facility] Valacyclovir HCl (Valtrex) 1,000 mg PO TID [facility] Last Admin: 06/27/20 02:25 Dose: Not Given Documented by: - Exam Quality Assessment: Supplemental Oxygen General: Alert, Oriented HEENT: Pupils Equal, Mucous Membr. Moist/[place] Neck: Supple Lungs: Normal Respiratory Effort, Crackles Cardiovascular: Regular Rate, Regular Rhythm GI/Abdominal Exam: Normal Bowel Sounds, Soft, Non-Tender, No Distention Extremities: Normal Inspection, Normal Range of Motion, Non-Tender, Normal Capillary Refill, Pedal Edema (4+ pitting edema) Skin: Warm, Dry, Intact Psy/Mental Status: Alert, Normal Affect, Normal Mood Sepsis Event Note - Evaluation Sepsis Screening Result: No Definite Risk - Focused Exam Vital Signs: Vital Signs Temp Pulse Resp BP Pulse Ox Pulse Ox 06/27/20 14:00 14 06/27/20 12:11 115/45 L 06/27/20 12:10 97.5 F 71 20 103/44 L 97 06/27/20 11:04 18 06/27/20 09:08 96 115/48 L 06/27/20 09:05 115/48 L 06/27/20 09:03 98.8 F 96 16 104/39 L 96 06/27/20 07:44 95 06/27/20 06:22 100 06/27/20 06:08 126/60 - Problem List & Annotations (1) Atrial flutter SNOMED Code(s): 2502578 Code(s): I48.92 - UNSPECIFIED ATRIAL FLUTTER Status: Acute Current Visit: Yes (2) Thrombocytopenia SNOMED Code(s): 637974143 Code(s): D69.6 - THROMBOCYTOPENIA, UNSPECIFIED Status: Acute Current Visit: Yes (3) Anemia, macrocytic SNOMED Code(s): 69764801 Code(s): D53.9 - NUTRITIONAL ANEMIA, UNSPECIFIED Status: Acute Current Visit: Yes (4) Acute herpes zoster neuropathy SNOMED Code(s): 024928645 Code(s): B02.23 - POSTHERPETIC POLYNEUROPATHY Status: Acute Current Visit: Yes (5) Lung cancer SNOMED Code(s): 852675493 Code(s): C34.90 - MALIGNANT NEOPLASM OF UNSP PART OF UNSP BRONCHUS OR LUNG Status: Acute Current Visit: Yes Qualifiers: Laterality: right Lung location: lower lobe of lung Qualified Code(s): C34.31 - Malignant neoplasm of lower lobe, right bronchus or lung (6) Metastasis to brain Status: Acute Current Visit: Yes (7) Pneumonia SNOMED Code(s): 850879508 Code(s): J18.9 - PNEUMONIA, UNSPECIFIED ORGANISM Status: Acute Priority: High Current Visit: Yes Qualifiers: Pneumonia type: due to unspecified organism Laterality: left Lung location: lower lobe of lung Qualified Code(s): J18.9 - Pneumonia, unspecified organism (8) Congestive heart failure (CHF) SNOMED Code(s): 35755756 Code(s): I50.9 - HEART FAILURE, UNSPECIFIED Status: Acute Current Visit: No (9) CKD (chronic kidney disease) stage 3, GFR 30-59 ml/min SNOMED Code(s): 044292215 Code(s): N18.3 - CHRONIC KIDNEY DISEASE, STAGE 3 (MODERATE) * DO NOT USE * Status: Chronic Priority: Medium Current Visit: No (10) COPD (chronic obstructive pulmonary disease) with chronic bronchitis SNOMED Code(s): 827047374 Code(s): J44.9 - CHRONIC OBSTRUCTIVE PULMONARY DISEASE, UNSPECIFIED Status: Chronic Priority: Medium Current Visit: No (11) Diabetes mellitus type 2 SNOMED Code(s): 77555705 Code(s): E11.9 - TYPE 2 DIABETES MELLITUS WITHOUT COMPLICATIONS Status: Chronic Priority: Medium Current Visit: No (12) HTN (hypertension) SNOMED Code(s): 29160708 Code(s): I10 - ESSENTIAL (PRIMARY) HYPERTENSION Status: Chronic Priority: Medium Current Visit: No Qualifiers: Hypertension type: unspecified Qualified Code(s): I10 - Essential (primary) hypertension (13) Cellulitis of right leg SNOMED Code(s): 021519895 Code(s): L03.115 - CELLULITIS OF RIGHT LOWER LIMB Status: Acute Current Visit: Yes - Problem List Review Problem List Initiated/Reviewed/Updated: Yes - My Orders Last 24 Hours: My Active Orders 06/26/20 15:01 Acetaminophen/oxyCODONE [Percocet 325-5 MG] 1 - 2 tab PO Q4H PRN Benzonatate [Tessalon Perles] 100 mg PO Q4HR PRN Nitroglycerin [Nitrostat] 0.4 mg SL ASDIRECTED PRN diazePAM [Valium] 2 mg PO Q6HR PRN 06/26/20 15:07 RT Aerosol Therapy [RC] ASDIRECTED 06/26/20 15:21 Blood Glucose Check, Bedside [RC] QIDACANDBED Dextrose 50% in Water 50 ml IV ASDIRECTED PRN 06/26/20 15:42 Albuterol [Proventil HFA] 0 gm INH QID PRN 06/26/20 17:00 Carboxymethylcellulose Sodium [Refresh Liquigel 1%] 0 ml EYEBOTH QID Insulin Lispro [HumaLOG] See Protocol SUBCUT QIDACANDBED 06/26/20 18:00 captopriL [Capoten] 50 mg PO BIDAC 06/26/20 19:27 Bladder Scan [RC] ASDIRECTED Notify Provider Intake and Out [RC] ASDIRECTED Urinary Catheter Assessment [RC] 04,10,16,22 06/26/20 19:30 Insert Urinary Catheter [OM.PC] ASDIRECTED 06/26/20 20:21 PT Evaluation and Treatment [CONS] Routine 06/26/20 21:00 Budesonide [Pulmicort] 0.25 mg INH BIDRT Gabapentin [Neurontin] 100 mg PO BID Metoprolol Tartrate [Lopressor] 50 mg PO BID Montelukast [Singulair] 10 mg PO BEDTIME Ranolazine [Ranexa] 500 mg PO BID Tamsulosin [Flomax] 0.8 mg PO BEDTIME guaiFENesin [Mucinex] 600 mg PO BID 06/26/20 22:00 valACYclovir [Valtrex] 1,000 mg PO Q12H 06/26/20 22:19 STREP PNEUMONIAE ANTIGEN [MREF] Routine 06/26/20 23:00 Insert Keen Catheter [Insert Urinary Catheter] [OM.PC] Q24H 06/27/20 06:00 Glycopyrrolate [Seebri Neohaler] 15.6 mcg IH BIDRT Insulin Glarg,Human.Rec.Analog [LantUS] 20 unit SUBCUT BIDAC Levothyroxine [Synthroid] 50 mcg PO ACBRK 06/27/20 07:00 Pantoprazole [ProTONIX] 40 mg PO DAILY@0700 06/27/20 07:19 Calcium Carbonate [Tums] 1,000 mg PO DAILY PRN 06/27/20 07:30 Arformoterol [Brovana] 15 mcg INH BIDRT 06/27/20 09:00 Aspirin 81 mg PO DAILY Clopidogrel [Plavix] 75 mg PO DAILY Enoxaparin [Lovenox] 40 mg SUBCUT DAILY Fluticasone Propionate [Flonase] 0 gm NASBOTH DAILY Isosorbide Mononitrate [Imdur] 120 mg PO DAILY Rosuvastatin [Crestor] 20 mg PO DAILY dexAMETHasone 8 mg PO DAILY 06/27/20 Lunch Consistent Carbohydrate Diet [DIET] Pharmacy to Dose - Vancomycin 1 dose .XX ASDIRECTED PRN 06/27/20 11:12 CULTURE WOUND [RM] Routine 06/27/20 11:23 Patient Status [ADT] Routine 06/27/20 12:08 ABG [RT Arterial Blood Gases, ABG] [RC] Click to Edit 06/28/20 06:00 Vancomycin 1 gm Vancomycin 500 mg Sodium Chloride 0.9% [Normal Saline] 500 ml IV Q18H 06/28/20 23:00 VANCOMYCIN TROUGH [CHEM] Timed - Plan Plan:: Assessment 06/26/2020 * 80-year-old male with 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 * Started on dexamethasone 8 mg daily by his oncologist on 06/21/2020 for 7 days then to decrease to 4 mg daily * Records from oncology states he was to have venous duplex lower extremity Dopplers bilaterally on 06/22/2020 * Exacerbation of CHF * proBNP 1251 * Significant lower extremity edema * Left lower lobe pneumonia versus atelectasis. * Patient has a normal WBC with no shift * Covid negative * CRP elevated at 11.9, but this is nonspecific and may be secondary to his cancer * Given Rocephin in the emergency department * Right lower extremity cellulitis with diabetic ulcer * Chronic lower extremity edema * Getting almost daily wraps to the right lower extremity * Significant erythema and weeping of the lower extremity * Right shoulder shingles * Started on Valtrex yesterday in the ER * Also on Percocet for pain. Patient developed shaking chills this morning after taking 2 Percocet * Insulin-dependent type 2 diabetes * Patient was found to have a blood sugar of 43 on admission to the floor. He was given 1 amp 50% glucose * Home records indicate he is on glargine 42 units twice daily. The records from [place] state, "inject 84 units subcutaneously 1 time per day Take 42 units in the a.m. and 42 units in the p.m." * Home meds: NovoLog 70 to 75 units subcutaneously 3 times a day with meals * Hemoglobin A1c 7.4 * COPD * On home O2 between 3 and 4 L/min * Currently on 2 L with oxygen saturations in the upper 90s * On Brovana, budesonide, albuterol, Singulair, Incruse Ellipta * Stop smoking several years ago * Finished azithromycin prescribed by Dr. 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 He has had some improvement in his weakness, but nursing reports he is very somnolent. ABG did show a metabolic alkalosis with pH of 7.5, PCO2 44.1, PO2 65, HCO3 34.3, oxygen saturations 91.5. Significant drop in his hemoglobin to 9.2. WBC normal at 6.48 with an elevation in absolute neutrophils of 5.82 with toxic granulation. Renal function stable with estimated GFR of 45. C-reactive protein significantly increased to 25.6. Albumin decreased to 1.9. Plan * Admit to medical floor on telemetry * Continue Rocephin 2 g every 24 hours * Add vancomycin * Blood cultures * Urine for strep antigenpending * Procalcitoninpending * Follow CBC, CMP, CRP, mag, Phos * Continue gentle diuresis with Lasix 20 mg IV now * Physical therapy consult * Wound therapy consult * Renally dose medications * Continue Valtrex and Percocet for pain * FiO2 to keep SPO2 between 92 and 97%. * Dietary consult secondary to hypoalbuminemia * Check TSH in the morning * Adjust insulin based on fingerstick blood sugars * Give glargine 20 units twice daily and medium dose sliding scale insulin. * Humalog 8 units with each meal in addition to sliding scale insulin * VTE prophylaxis with Lovenox. * CODE STATUS: DNR/DNI * Length of stay depending on progress with physical therapy and edema.
[2020-06-27] MEDS ORDERED: Furosemide 20 MG/2 ML VIAL IVPUSH ONE (16:00)
[2020-06-27] MEDS ORDERED: 50% Dextrose in Water 50 ML Syringe IV PRN (19:00)
[2020-06-27] MEDS: Tamsulosin 0.4 MG Cap.ER PO SCH (21:05)
[2020-06-27] MEDS: Montelukast 10 MG Tab PO SCH (21:06)
[2020-06-27] MEDS: INCRUSE ELLIPTA INH SCH ×2 (22:21→22:22)
[2020-06-28] MEDS: Albuterol 6.7 GM Inhaler INH PRN (04:56)
[2020-06-28] MEDS: Glycopyrrolate 15.6 MCG Cap.W.Dev Kit of 6 IH SCH ×2 (04:59→20:02)
[2020-06-28] MEDS: Arformoterol 15 MCG/2 ML Neb Soln INH SCH ×2 (04:59→20:08)
[2020-06-28] MEDS: Budesonide 0.25 MG/2 ML Neb Susp INH SCH ×2 (05:06→20:02)
[2020-06-28] MEDS: Pantoprazole 40 MG Tab.CR PO SCH (06:18)
[2020-06-28] MEDS: Levothyroxine 50 MCG Tab PO SCH (06:18)
[2020-06-28] MEDS: Insulin Glarg,Human.Rec.Analog 100 Unit/ML SUBCUT SCH ×2 (06:21→16:13)
[2020-06-28] MEDS: Vancomycin 1 GM, Vancomycin 500 MG in Sodium Chloride 0.9% 500 ML IV SCH (06:26)
[2020-06-28] MEDS ORDERED: Insulin Lispro 100 Units/ML 3 ML Vial SUBCUT SCH (07:00)
[2020-06-28] MEDS: Insulin Lispro 100 Units/ML 3 ML Vial SUBCUT SCH ×7 (08:25→21:13)
[2020-06-28] MEDS: Fluticasone Propionate Nasal Spray 16 GM Bottle NASBOTH SCH (08:25)
[2020-06-28] MEDS: Carboxymethylcellulose Sodium 1% Ophth Gel 15 ML Bottle EYEBOTH SCH ×4 (08:26→21:17)
[2020-06-28] MEDS: Clopidogrel 75 MG Tab PO SCH (08:27)
[2020-06-28] MEDS: Gabapentin 100 MG Cap PO SCH ×2 (08:27→21:15)
[2020-06-28] MEDS: Rosuvastatin 10 MG Tab PO SCH (08:27)
[2020-06-28] MEDS: guaiFENesin 600 MG Tab.ER PO SCH ×2 (08:27→21:16)
[2020-06-28] MEDS: Dexamethasone 4 MG Tab PO SCH (08:27)
[2020-06-28] MEDS: Metoprolol Tartrate 50 MG Tab PO SCH ×2 (08:27→21:16)
[2020-06-28] MEDS: Isosorbide Mononitrate 60 MG Tab.ER PO SCH (08:27)
[2020-06-28] MEDS: Aspirin 81 MG Tab.Chew PO SCH (08:27)
[2020-06-28] MEDS: Enoxaparin 40 MG/0.4 ML Syringe SUBCUT SCH (08:28)
[2020-06-28] MEDS: cefTRIAXone 2 GM in Sodium Chloride 0.9% 100 ML IV SCH (08:53)
[2020-06-28] MEDS: valACYclovir 1,000 MG Tab PO SCH ×2 (09:34→21:37)
[2020-06-28] MEDS: Calamine/Zinc Oxide Lotion 177 ML Bottle TOP SCH ×3 (13:52→21:17)
[2020-06-28] MEDS ORDERED: Polyethylene Glycol 3350 Powder 17 GM Packet PO PRN (18:01)
--- NOTE | 2020-06-28 19:10 | PCM.PN ---
- General Info Date of Service: 06/28/20 Admission Dx/Problem (Free Text): Admission Diagnosis/Problem Admission Diagnosis/Problem Pneumonia - Patient Data Vitals - Most Recent: Last Vital Signs Temp 97.5 F 06/28/20 14:47 Pulse 76 06/28/20 16:13 Resp 16 06/28/20 16:13 BP 118/51 L 06/28/20 16:13 Pulse Ox 100 06/28/20 16:13 Weight - Most Recent: 236 lb 1.6 oz I&O - Last 24 Hours: Intake & Output 06/28/20 06/28/20 06/28/20 06:59 14:59 22:59 Intake Total 500 900 850 Output Total 1150 975 Balance -650 900 -125 Lab Results Last 24 Hours: Laboratory Results - last 24 hr 06/27/20 06/28/20 06/28/20 Range/Units 21:03 06:16 06:47 WBC 6.91 (4.23-9.07) K/mm3 RBC 2.70 L (4.63-6.08) M/mm3 Hgb 8.1 L (13.7-17.5) gm/dl Hct 26.6 L (40.1-51.0) % MCV 98.5 H (79.0-92.2) fl MCH 30.0 (25.7-32.2) pg MCHC 30.5 L (32.2-35.5) g/dl RDW Std Deviation 51.6 H (35.1-43.9) fL Plt Count 91 L (163-337) K/mm3 MPV 9.8 (9.4-12.3) fl Neut % (Auto) 92.8 H (34.0-67.9) % Lymph % (Auto) 2.6 L (21.8-53.1) % Pike % (Auto) 3.6 L (5.3-12.2) % Eos % (Auto) 0 L (0.8-7.0) Baso % (Auto) 0.0 L (0.1-1.2) % Neut # (Auto) 6.41 H (1.78-5.38) K/mm3 Lymph # (Auto) 0.18 L (1.32-3.57) K/mm3 Pike # (Auto) 0.25 L (0.30-0.82) K/mm3 Eos # (Auto) 0.00 L (0.04-0.54) K/mm3 Baso # (Auto) 0.00 L (0.01-0.08) K/mm3 Manual Slide Review Abnormal smear Sodium (136-145) mEq/L Potassium (3.5-5.1) mEq/L Chloride (98-107) mEq/L Carbon Dioxide (21-32) mEq/L Anion Gap (5-15) BUN (7-18) mg/dL Creatinine (0.7-1.3) mg/dL Est Cr Clr Drug Dosing mL/min Estimated GFR (MDRD) (>60) mL/min BUN/Creatinine Ratio (14-18) Glucose (83-115) mg/dL POC Glucose 327 H 177 H (83-110) mg/dL Calcium (8.5-10.1) mg/dL Phosphorus (2.6-4.7) mg/dL Magnesium (1.8-2.4) mg/dl Total Bilirubin (0.2-1.0) mg/dL AST (15-37) U/L ALT (16-63) U/L Alkaline Phosphatase (46-116) U/L C-Reactive Protein (<1.0) mg/dL Total Protein (6.4-8.2) g/dl Albumin (3.4-5.0) g/dl Globulin gm/dL Albumin/Globulin Ratio (1-2) TSH 3rd Generation (0.358-3.74) uIU/mL 06/28/20 06/28/20 06/28/20 Range/Units 06:47 11:17 14:40 WBC (4.23-9.07) K/mm3 RBC (4.63-6.08) M/mm3 Hgb (13.7-17.5) gm/dl Hct (40.1-51.0) % MCV (79.0-92.2) fl MCH (25.7-32.2) pg MCHC (32.2-35.5) g/dl RDW Std Deviation (35.1-43.9) fL Plt Count (163-337) K/mm3 MPV (9.4-12.3) fl Neut % (Auto) (34.0-67.9) % Lymph % (Auto) (21.8-53.1) % Pike % (Auto) (5.3-12.2) % Eos % (Auto) (0.8-7.0) Baso % (Auto) (0.1-1.2) % Neut # (Auto) (1.78-5.38) K/mm3 Lymph # (Auto) (1.32-3.57) K/mm3 Pike # (Auto) (0.30-0.82) K/mm3 Eos # (Auto) (0.04-0.54) K/mm3 Baso # (Auto) (0.01-0.08) K/mm3 Manual Slide Review Sodium 137 (136-145) mEq/L Potassium 4.5 (3.5-5.1) mEq/L Chloride 99 (98-107) mEq/L Carbon Dioxide 36 H (21-32) mEq/L Anion Gap 6.5 (5-15) BUN 43 H (7-18) mg/dL Creatinine 1.5 H (0.7-1.3) mg/dL Est Cr Clr Drug Dosing 46.94 mL/min Estimated GFR (MDRD) 45 (>60) mL/min BUN/Creatinine Ratio 28.7 H (14-18) Glucose 165 H (83-115) mg/dL POC Glucose 309 H 261 H (83-110) mg/dL Calcium 8.7 (8.5-10.1) mg/dL Phosphorus 4.0 (2.6-4.7) mg/dL Magnesium 2.1 (1.8-2.4) mg/dl Total Bilirubin 0.7 (0.2-1.0) mg/dL AST 14 L (15-37) U/L ALT 25 (16-63) U/L Alkaline Phosphatase 48 (46-116) U/L C-Reactive Protein 25.0 H* (<1.0) mg/dL Total Protein 5.3 L (6.4-8.2) g/dl Albumin 1.8 L (3.4-5.0) g/dl Globulin 3.5 gm/dL Albumin/Globulin Ratio 0.5 L (1-2) TSH 3rd Generation 0.579 (0.358-3.74) uIU/mL Michael Results Last 24 Hours: Microbiology 06/26/20 08:32 Urine Culture - Preliminary Urine, Clean Catch Klebsiella Oxytoca 06/27/20 11:12 Wound Culture - Preliminary Leg, Right Gram Negative Rods 06/26/20 06:52 Aerobic Blood Culture - Preliminary Blood - Venous - Lab Draw NO GROWTH AFTER 2 DAYS Anaerobic Blood Culture - Final 06/26/20 06:36 Aerobic Blood Culture - Preliminary Blood - Venous NO GROWTH AFTER 2 DAYS Anaerobic Blood Culture - Preliminary NO GROWTH AFTER 2 DAYS 06/27/20 04:05 Streptococcus pneumoniae Antigen (M - Final Urine Med Orders - Current: Current Medications Acetaminophen (Tylenol) 650 mg PO Q4H PRN PRN Reason: Pain (Mild 1-3)/fever Albuterol (Proventil Hfa) 0 gm INH QID PRN PRN Reason: Shortness of Breath Last Admin: 06/28/20 04:56 Dose: 2 puff Documented by: Arformoterol Tartrate (Brovana) 15 mcg INH BIDRT [facility] Last Admin: 06/28/20 04:59 Dose: 15 mcg Documented by: Artificial Tears (Refresh Liquigel 1%) 0 ml EYEBOTH QID [facility] Last Admin: 06/28/20 16:18 Dose: 1 drop Documented by: Aspirin (Aspirin) 81 mg PO DAILY [facility] Last Admin: 06/28/20 08:27 Dose: 81 mg Documented by: Benzonatate (Tessalon Perles) 100 mg PO Q4HR PRN PRN Reason: Cough Budesonide (Pulmicort) 0.25 mg INH BIDRT [facility] Last Admin: 06/28/20 05:06 Dose: 0.25 mg Documented by: Calamine/Zinc Oxide (Calamine Lotion) 3 ml TOP Q4HR [facility] Last Admin: 06/28/20 16:19 Dose: 1 applic Documented by: Calcium Carbonate/Glycine (Tums) 1,000 mg PO DAILY PRN PRN Reason: Heartburn Captopril (Capoten) 50 mg PO BIDAC [facility] Last Admin: 06/28/20 16:12 Dose: 50 mg Documented by: Clopidogrel Bisulfate (Plavix) 75 mg PO DAILY [facility] Last Admin: 06/28/20 08:27 Dose: 75 mg Documented by: Dexamethasone (Dexamethasone) 8 mg PO DAILY [facility] Last Admin: 06/28/20 08:27 Dose: 8 mg Documented by: Dextrose/Water (Dextrose 50% In Water) 50 ml IV ASDIRECTED PRN PRN Reason: Hypoglycemia Last Admin: 06/26/20 17:19 Dose: 50 ml Documented by: Dextrose/Water (Dextrose 50% In Water) 50 ml IV ASDIRECTED PRN PRN Reason: Hypoglycemia Diazepam (Valium) 2 mg PO Q6HR PRN PRN Reason: Anxiety Fluticasone Propionate (Flonase) 0 gm NASBOTH DAILY [facility] Last Admin: 06/28/20 08:25 Dose: 1 spray Documented by: Gabapentin (Neurontin) 100 mg PO BID [facility] Last Admin: 06/28/20 08:27 Dose: 100 mg Documented by: Glycopyrrolate (Seebri Neohaler) 15.6 mcg IH BIDRT [facility] Last Admin: 06/28/20 04:59 Dose: 1 cap Documented by: Guaifenesin (Mucinex) 600 mg PO BID [facility] Last Admin: 06/28/20 08:27 Dose: 600 mg Documented by: Ceftriaxone Sodium 2 gm/ (Sodium Chloride) 100 mls @ 200 mls/hr IV Q24H [facility] Last Admin: 06/28/20 08:53 Dose: 200 mls/hr Documented by: Vancomycin HCl 1 gm/Vancomycin HCl 500 mg/ Sodium Chloride 500 mls @ 250 mls/hr IV Q18H [facility] Last Admin: 06/28/20 06:26 Dose: 250 mls/hr Documented by: Insulin Glargine (Lantus) 25 unit SUBCUT BIDAC [facility] Last Admin: 06/28/20 16:13 Dose: 25 unit Documented by: Insulin Human Lispro (Humalog) 0 unit SUBCUT QIDACANDBED [facility]; Protocol Last Admin: 06/28/20 16:18 Dose: 4 units Documented by: Insulin Human Lispro (Humalog) 15 unit SUBCUT TIDPC [facility] Last Admin: 06/28/20 16:18 Dose: 15 unit Documented by: Isosorbide Mononitrate (Imdur) 120 mg PO DAILY [facility] Last Admin: 06/28/20 08:27 Dose: 120 mg Documented by: Levothyroxine Sodium (Synthroid) 50 mcg PO ACBRK [facility] Last Admin: 06/28/20 06:18 Dose: 50 mcg Documented by: Metoprolol Tartrate (Lopressor) 50 mg PO BID [facility] Last Admin: 06/28/20 08:27 Dose: 50 mg Documented by: Montelukast Sodium (Singulair) 10 mg PO BEDTIME [facility] Last Admin: 06/27/20 21:06 Dose: 10 mg Documented by: Nitroglycerin (Nitrostat) 0.4 mg SL ASDIRECTED PRN PRN Reason: Chest Pain Ondansetron HCl (Zofran) 4 mg IV Q4H PRN PRN Reason: Nausea/Vomiting Oxycodone/Acetaminophen (Percocet 325-5 Mg) 1 - 2 tab PO Q4H PRN PRN Reason: pain relief. Last Admin: 06/28/20 11:16 Dose: 2 tab Documented by: Pantoprazole Sodium (Protonix) 40 mg PO DAILY@0700 [facility] Last Admin: 06/28/20 06:18 Dose: 40 mg Documented by: Polyethylene Glycol (Miralax) 17 gm PO DAILY PRN PRN Reason: Constipation Last Admin: 06/28/20 18:18 Dose: 17 gm Documented by: Ranolazine (Ranexa) 500 mg PO BID [facility] Last Admin: 06/28/20 08:26 Dose: 500 mg Documented by: Rosuvastatin Calcium (Crestor) 20 mg PO DAILY [facility] Last Admin: 06/28/20 08:27 Dose: 20 mg Documented by: Tamsulosin HCl (Flomax) 0.8 mg PO BEDTIME [facility] Last Admin: 06/27/20 21:05 Dose: 0.8 mg Documented by: Valacyclovir HCl (Valtrex) 1,000 mg PO Q12H [facility] Last Admin: 06/28/20 09:34 Dose: 1,000 mg Documented by: Vancomycin HCl (Pharmacy To Dose - Vancomycin) 1 dose .XX ASDIRECTED PRN PRN Reason: RX TO DOSE VANCO Discontinued Medications Arformoterol Tartrate (Brovana) 15 mcg INH BIDRT [facility] Last Admin: 06/27/20 05:57 Dose: Not Given Documented by: Captopril (Capoten) 50 mg PO BIDAC [facility] Last Admin: 06/26/20 21:24 Dose: Not Given Documented by: Diphenhydramine HCl (Benadryl) 25 mg IVPUSH ONETIME ONE Stop: 06/26/20 06:22 Last Admin: 06/26/20 06:38 Dose: 25 mg Documented by: Enoxaparin Sodium (Lovenox) 40 mg SUBCUT DAILY [facility] Last Admin: 06/28/20 08:28 Dose: 40 mg Documented by: Furosemide (Lasix) 40 mg IVPUSH NOW ONE Stop: 06/26/20 18:01 Last Admin: 06/26/20 18:43 Dose: 40 mg Documented by: Furosemide (Lasix) 20 mg IVPUSH ONETIME ONE Stop: 06/27/20 16:01 Last Admin: 06/27/20 17:21 Dose: 20 mg Documented by: Glycopyrrolate (Seebri Neohaler) 15.6 mcg IH BID [facility] Last Admin: 06/26/20 20:44 Dose: 1 cap Documented by: Sodium Chloride (Normal Saline) 1,000 mls @ 100 mls/hr IV ASDIRECTED [facility] Last Admin: 06/26/20 06:38 Dose: 100 mls/hr Documented by: Vancomycin HCl 2 gm/ Sodium (Chloride) 500 mls @ 250 mls/hr IV ONETIME ONE Stop: 06/27/20 13:59 Last Admin: 06/27/20 11:56 Dose: 250 mls/hr Documented by: Insulin Glargine (Lantus) 40 unit SUBCUT BIDAC [facility] Last Admin: 06/26/20 21:25 Dose: Not Given Documented by: Insulin Glargine (Lantus) 20 unit SUBCUT BIDAC [facility] Last Admin: 06/28/20 06:21 Dose: 20 units Documented by: Insulin Glargine (Lantus) 20 unit SUBCUT NOW STA Stop: 06/26/20 22:37 Last Admin: 06/26/20 22:54 Dose: 20 units Documented by: Insulin Human Lispro (Humalog) 8 unit SUBCUT TIDAC [facility] Last Admin: 06/28/20 08:24 Dose: 8 unit Documented by: Lorazepam (Ativan) 0.5 mg IVPUSH ONETIME ONE Stop: 06/26/20 06:23 Last Admin: 06/26/20 06:39 Dose: 0.5 mg Documented by: Non-Formulary Medication (Incruse Ellipta 62.5mcg/Inh) 1 puff INH BID [facility] Last Admin: 06/27/20 22:22 Dose: Not Given Documented by: Valacyclovir HCl (Valtrex) 1,000 mg PO TID [facility] Last Admin: 06/27/20 02:25 Dose: Not Given Documented by: Sepsis Event Note - Evaluation Sepsis Screening Result: No Definite Risk - Focused Exam Vital Signs: Vital Signs Temp Pulse Resp BP Pulse Ox Pulse Ox 06/28/20 16:13 76 16 118/51 L 100 06/28/20 16:12 118/51 L 06/28/20 16:00 21 H 06/28/20 15:00 14 06/28/20 14:47 97.5 F 74 8 L 100 06/28/20 14:00 18 06/28/20 13:00 9 L 06/28/20 12:00 13 97 06/28/20 11:22 63 16 118/52 L 100 06/28/20 11:00 17 06/28/20 10:00 19 06/28/20 09:00 20 06/28/20 08:27 69 137/76 06/28/20 08:00 25 H 06/28/20 07:35 69 10 L 137/76 97 - Problem List & Annotations (1) Atrial flutter SNOMED Code(s): 7701981 Code(s): I48.92 - UNSPECIFIED ATRIAL FLUTTER Status: Acute Current Visit: Yes (2) Thrombocytopenia SNOMED Code(s): 565106581 Code(s): D69.6 - THROMBOCYTOPENIA, UNSPECIFIED Status: Acute Current Visit: Yes (3) Anemia, macrocytic SNOMED Code(s): 44690295 Code(s): D53.9 - NUTRITIONAL ANEMIA, UNSPECIFIED Status: Acute Current Visit: Yes (4) Acute herpes zoster neuropathy SNOMED Code(s): 834765303 Code(s): B02.23 - POSTHERPETIC POLYNEUROPATHY Status: Acute Current Visit: Yes (5) Lung cancer SNOMED Code(s): 331705545 Code(s): C34.90 - MALIGNANT NEOPLASM OF UNSP PART OF UNSP BRONCHUS OR LUNG Status: Acute Current Visit: Yes Qualifiers: Laterality: right Lung location: lower lobe of lung Qualified Code(s): C34.31 - Malignant neoplasm of lower lobe, right bronchus or lung (6) Metastasis to brain Status: Acute Current Visit: Yes (7) Pneumonia SNOMED Code(s): 514255677 Code(s): J18.9 - PNEUMONIA, UNSPECIFIED ORGANISM Status: Acute Priority: High Current Visit: Yes Qualifiers: Pneumonia type: due to unspecified organism Laterality: left Lung locati on: lower lobe of lung Qualified Code(s): J18.9 - Pneumonia, unspecified organism (8) Congestive heart failure (CHF) SNOMED Code(s): 89953069 Code(s): I50.9 - HEART FAILURE, UNSPECIFIED Status: Acute Current Visit: No (9) CKD (chronic kidney disease) stage 3, GFR 30-59 ml/min SNOMED Code(s): 190887053 Code(s): N18.3 - CHRONIC KIDNEY DISEASE, STAGE 3 (MODERATE) * DO NOT USE * Status: Chronic Priority: Medium Current Visit: No (10) COPD (chronic obstructive pulmonary disease) with chronic bronchitis SNOMED Code(s): 787331125 Code(s): J44.9 - CHRONIC OBSTRUCTIVE PULMONARY DISEASE, UNSPECIFIED Status: Chronic Priority: Medium Current Visit: No (11) Diabetes mellitus type 2 SNOMED Code(s): 02518079 Code(s): E11.9 - TYPE 2 DIABETES MELLITUS WITHOUT COMPLICATIONS Status: Chronic Priority: Medium Current Visit: No (12) HTN (hypertension) SNOMED Code(s): 41304025 Code(s): I10 - ESSENTIAL (PRIMARY) HYPERTENSION Status: Chronic Priority: Medium Current Visit: No Qualifiers: Hypertension type: unspecified Qualified Code(s): I10 - Essential (primary) hypertension (13) Cellulitis of right leg SNOMED Code(s): 821270355 Code(s): L03.115 - CELLULITIS OF RIGHT LOWER LIMB Status: Acute Current Visit: Yes - Problem List Review Problem List Initiated/Reviewed/Updated: Yes - My Orders Last 24 Hours: My Active Orders 06/27/20 19:00 Dextrose 50% in Water 50 ml IV ASDIRECTED PRN 06/28/20 06:00 Vancomycin 1 gm Vancomycin 500 mg Sodium Chloride 0.9% [Normal Saline] 500 ml IV Q18H 06/28/20 06:47 PROCALCITONIN [REF] DAILY 06/28/20 08:34 Antiembolic Devices [RC] PER UNIT ROUTINE JAMES Hose [Antiembolic Hose] [OM.PC] Routine 06/28/20 08:37 OCCULT BLOOD SCREEN [OP] Routine 06/28/20 13:00 Calamine/Zinc Oxide [Calamine Lotion] 3 ml TOP Q4HR Insulin Lispro [HumaLOG] 15 unit SUBCUT TIDPC 06/28/20 16:00 Insulin Glarg,Human.Rec.Analog [LantUS] 25 unit SUBCUT BIDAC 06/28/20 18:01 polyethylene glycoL 3350 [MiraLAX] 17 gm PO DAILY PRN 06/28/20 23:00 VANCOMYCIN TROUGH [CHEM] Timed 06/29/20 05:11 C-REACTIVE PROTEIN [CHEM] AM CBC WITH AUTO DIFF [HEME] AM CMP [COMPREHENSIVE METABOLIC PN,CMP] [CHEM] AM MAGNESIUM [CHEM] AM PHOSPHORUS [CHEM] AM - Plan Plan:: Assessment 06/26/2020 * 80-year-old male with 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 * Started on dexamethasone 8 mg daily by his oncologist on 06/21/2020 for 7 days then to decrease to 4 mg daily * Records from oncology states he was to have venous duplex lower extremity Dopplers bilaterally on 06/22/2020 * Exacerbation of CHF * proBNP 1251 * Significant lower extremity edema * Left lower lobe pneumonia versus atelectasis. * Patient has a normal WBC with no shift * Covid negative * CRP elevated at 11.9, but this is nonspecific and may be secondary to his cancer * Given Rocephin in the emergency department * Right lower extremity cellulitis with diabetic ulcer * Chronic lower extremity edema * Getting almost daily wraps to the right lower extremity * Significant erythema and weeping of the lower extremity * Right shoulder shingles * Started on Valtrex yesterday in the ER * Also on Percocet for pain. Patient developed shaking chills this morning after taking 2 Percocet * Insulin-dependent type 2 diabetes * Patient was found to have a blood sugar of 43 on admission to the floor. He was given 1 amp 50% glucose * Home records indicate he is on glargine 42 units twice daily. The records from [place] state, "inject 84 units subcutaneously 1 time per day Take 42 units in the a.m. and 42 units in the p.m." * Home meds: NovoLog 70 to 75 units subcutaneously 3 times a day with meals * Hemoglobin A1c 7.4 * COPD * On home O2 between 3 and 4 L/min * Currently on 2 L with oxygen saturations in the upper 90s * On Brovana, budesonide, albuterol, Singulair, Incruse Ellipta * Stop smoking several years ago * Finished azithromycin prescribed by Dr. 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 He has had some improvement in his weakness, but nursing reports he is very somnolent. ABG did show a metabolic alkalosis with pH of 7.5, PCO2 44.1, PO2 65, HCO3 34.3, oxygen saturations 91.5. Significant drop in his hemoglobin to 9.2. WBC normal at 6.48 with an elevation in absolute neutrophils of 5.82 with toxic granulation. Renal function stable with estimated GFR of 45. C-reactive protein significantly increased to 25.6. Albumin decreased to 1.9. 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 * Exacerbation of CHF -minimal weight loss of only 1 pound * Left lower lobe pneumonia-WBC 6.9, yesterday's procalcitonin was 0.31, C- reactive protein is essentially the same at 25.0 * Right lower extremity cellulitis with diabetic ulcer * Shinglesright shoulder * Insulin-dependent diabetic -hemoglobin A1c 7.4 -blood sugars have been between 177 and 309 * COPD * Chronic renal insufficiency-GFR 45, creatinine 1.5, BUN 43 * Elevated bilirubinimproved * Hypoalbuminemia-Albumin 1.8 * Thrombocytopenia-91,000 * Bacteriuriagram-negative rods-Klebsiella oxytoca sensitive to Rocephin * Metabolic alkalosislikely due to intravascular contraction Generally patient is improving. Continues to have significant lower extremity edema, but redness seems to be improving in the lower extremity. Wound therapy is to work with him. He has a significantly low albumin which could be worsening his edema. He has only had approximately 1 pound weight loss. He is much more alert and awake today. He would like some topical treatment for his shingles on the right shoulder. Plan * Admit to medical floor on telemetry * Continue Rocephin 2 g every 24 hours * Continue vancomycin * Blood cultures -pending * Follow CBC, CMP, CRP, mag, Phos * Continue gentle diuresis with Lasix 20 mg IV now with albumin 12.5 g * Lasix 20 mg IV daily * Physical therapy consult * Wound therapy consult * Renally dose medications * Continue Valtrex and Percocet for pain. Use calamine lotion as needed. * FiO2 to keep SPO2 between 92 and 97%. * Dietary consult secondary to hypoalbuminemia * Adjust insulin based on fingerstick blood sugars * Give glargine 30 units twice daily and medium dose sliding scale insulin. * Humalog 14 units with each meal in addition to sliding scale insulin * VTE prophylaxis with Lovenox. * CODE STATUS: DNR/DNI * Length of stay depending on progress with physical therapy and edema.
[2020-06-28] MEDS: Montelukast 10 MG Tab PO SCH (21:15)
[2020-06-28] MEDS: Tamsulosin 0.4 MG Cap.ER PO SCH (21:16)
[2020-06-28] MEDS ORDERED: Furosemide 20 MG/2 ML VIAL IVPUSH ONE (21:46)
[2020-06-28] MEDS ORDERED: Albumin 25% 12.5 GM/50 ML BAG IV ONE (21:53)
[2020-06-28] MEDS: traZODone 50 MG Tab PO PRN (23:13)
[2020-06-29] MEDS: Vancomycin 1 GM, Vancomycin 500 MG in Sodium Chloride 0.9% 500 ML IV SCH (00:42)
[2020-06-29] MEDS: Calamine/Zinc Oxide Lotion 177 ML Bottle TOP SCH ×6 (00:43→21:13)
[2020-06-29] MEDS: Glycopyrrolate 15.6 MCG Cap.W.Dev Kit of 6 IH SCH ×2 (05:27→21:45)
[2020-06-29] MEDS: Budesonide 0.25 MG/2 ML Neb Susp INH SCH ×2 (05:27→21:40)
[2020-06-29] MEDS: Arformoterol 15 MCG/2 ML Neb Soln INH SCH ×2 (05:28→21:40)
[2020-06-29] MEDS: Levothyroxine 50 MCG Tab PO SCH (05:34)
[2020-06-29] MEDS: Pantoprazole 40 MG Tab.CR PO SCH ×2 (05:34→10:16)
[2020-06-29] MEDS: Insulin Lispro 100 Units/ML 3 ML Vial SUBCUT SCH ×8 (08:23→21:17)
[2020-06-29] MEDS: Furosemide 20 MG/2 ML VIAL IVPUSH SCH (08:26)
[2020-06-29] MEDS: cefTRIAXone 2 GM in Sodium Chloride 0.9% 100 ML IV SCH (08:31)
[2020-06-29] MEDS: guaiFENesin 600 MG Tab.ER PO SCH ×2 (08:35→21:13)
[2020-06-29] MEDS: Isosorbide Mononitrate 60 MG Tab.ER PO SCH (08:35)
[2020-06-29] MEDS: Aspirin 81 MG Tab.Chew PO SCH (08:35)
[2020-06-29] MEDS: Metoprolol Tartrate 50 MG Tab PO SCH ×2 (08:36→21:15)
[2020-06-29] MEDS: Clopidogrel 75 MG Tab PO SCH (08:36)
[2020-06-29] MEDS: Rosuvastatin 10 MG Tab PO SCH (08:36)
[2020-06-29] MEDS: Gabapentin 100 MG Cap PO SCH ×2 (08:36→21:15)
[2020-06-29] MEDS: Dexamethasone 4 MG Tab PO SCH (08:36)
[2020-06-29] MEDS: Carboxymethylcellulose Sodium 1% Ophth Gel 15 ML Bottle EYEBOTH SCH ×4 (08:39→21:17)
[2020-06-29] MEDS: Fluticasone Propionate Nasal Spray 16 GM Bottle NASBOTH SCH (08:39)
[2020-06-29] MEDS: Insulin Glarg,Human.Rec.Analog 100 Unit/ML SUBCUT SCH ×3 (10:16→21:16)
[2020-06-29] MEDS: valACYclovir 1,000 MG Tab PO SCH ×3 (10:21→21:16)
[2020-06-29] MEDS: Magnesium Hydroxide 400 MG/5 ML Susp 30 ML Cup PO SCH ×2 (14:07→21:13)
--- NOTE | 2020-06-29 16:25 | PCM.PN ---
- General Info Date of Service: 06/29/20 Subjective Update: Patient feels well, he has no complaints. Hopes to go home on 06/30/2020. Has been on Rocephin, will switch ATB at DC to oral equivalent. Functional Status: Reports: Tolerating Diet - Review of Systems General: Reports: No Symptoms HEENT: Reports: No Symptoms Pulmonary: Reports: No Symptoms Cardiovascular: Reports: No Symptoms Gastrointestinal: Reports: Constipation Genitourinary: Reports: No Symptoms Musculoskeletal: Reports: No Symptoms Skin: Reports: No Symptoms Neurological: Reports: No Symptoms Psychiatric: Reports: No Symptoms - Patient Data Vitals - Most Recent: Last Vital Signs Temp 36.4 C 06/29/20 15:23 Pulse 79 06/29/20 15:23 Resp 15 06/29/20 16:00 BP 138/53 L 06/29/20 15:23 Pulse Ox 97 06/29/20 15:23 Weight - Most Recent: 107.139 kg I&O - Last 24 Hours: Intake & Output 06/29/20 06/29/20 06/29/20 06:59 14:59 22:59 Intake Total 500 180 620 Output Total 2300 700 Balance -1800 180 -80 Lab Results Last 24 Hours: Laboratory Results - last 24 hr 06/28/20 06/28/20 06/28/20 Range/Units 06:47 16:16 20:55 WBC (4.23-9.07) K/mm3 RBC (4.63-6.08) M/mm3 Hgb (13.7-17.5) gm/dl Hct (40.1-51.0) % MCV (79.0-92.2) fl MCH (25.7-32.2) pg MCHC (32.2-35.5) g/dl RDW Std Deviation (35.1-43.9) fL Plt Count (163-337) K/mm3 MPV (9.4-12.3) fl Neut % (Auto) (34.0-67.9) % Lymph % (Auto) (21.8-53.1) % Hooker % (Auto) (5.3-12.2) % Eos % (Auto) (0.8-7.0) Baso % (Auto) (0.1-1.2) % Neut # (Auto) (1.78-5.38) K/mm3 Lymph # (Auto) (1.32-3.57) K/mm3 Hooker # (Auto) (0.30-0.82) K/mm3 Eos # (Auto) (0.04-0.54) K/mm3 Baso # (Auto) (0.01-0.08) K/mm3 Manual Slide Review Sodium (136-145) mEq/L Potassium (3.5-5.1) mEq/L Chloride (98-107) mEq/L Carbon Dioxide (21-32) mEq/L Anion Gap (5-15) BUN (7-18) mg/dL Creatinine (0.7-1.3) mg/dL Est Cr Clr Drug Dosing mL/min Estimated GFR (MDRD) (>60) mL/min BUN/Creatinine Ratio (14-18) Glucose (83-115) mg/dL POC Glucose 237 H 237 H (83-110) mg/dL Calcium (8.5-10.1) mg/dL Phosphorus (2.6-4.7) mg/dL Magnesium (1.8-2.4) mg/dl Total Bilirubin (0.2-1.0) mg/dL AST (15-37) U/L ALT (16-63) U/L Alkaline Phosphatase (46-116) U/L C-Reactive Protein (<1.0) mg/dL Total Protein (6.4-8.2) g/dl Albumin (3.4-5.0) g/dl Globulin gm/dL Albumin/Globulin Ratio (1-2) Procalcitonin 0.31 H (<0.10) ng/mL Vancomycin Trough (10.0-20.0) 06/28/20 06/29/20 06/29/20 Range/Units 22:57 05:32 06:44 WBC 5.83 (4.23-9.07) K/mm3 RBC 2.48 L (4.63-6.08) M/mm3 Hgb 7.6 L (13.7-17.5) gm/dl Hct 24.3 L (40.1-51.0) % MCV 98.0 H (79.0-92.2) fl MCH 30.6 (25.7-32.2) pg MCHC 31.3 L (32.2-35.5) g/dl RDW Std Deviation 50.0 H (35.1-43.9) fL Plt Count 77 L (163-337) K/mm3 MPV 10.0 (9.4-12.3) fl Neut % (Auto) 90.1 H (34.0-67.9) % Lymph % (Auto) 3.1 L (21.8-53.1) % Hooker % (Auto) 4.6 L (5.3-12.2) % Eos % (Auto) 0 L (0.8-7.0) Baso % (Auto) 0.0 L (0.1-1.2) % Neut # (Auto) 5.25 (1.78-5.38) K/mm3 Lymph # (Auto) 0.18 L (1.32-3.57) K/mm3 Hooker # (Auto) 0.27 L (0.30-0.82) K/mm3 Eos # (Auto) 0.00 L (0.04-0.54) K/mm3 Baso # (Auto) 0.00 L (0.01-0.08) K/mm3 Manual Slide Review Abnormal smear Sodium (136-145) mEq/L Potassium (3.5-5.1) mEq/L Chloride (98-107) mEq/L Carbon Dioxide (21-32) mEq/L Anion Gap (5-15) BUN (7-18) mg/dL Creatinine (0.7-1.3) mg/dL Est Cr Clr Drug Dosing mL/min Estimated GFR (MDRD) (>60) mL/min BUN/Creatinine Ratio (14-18) Glucose (83-115) mg/dL POC Glucose 263 H (83-110) mg/dL Calcium (8.5-10.1) mg/dL Phosphorus (2.6-4.7) mg/dL Magnesium (1.8-2.4) mg/dl Total Bilirubin (0.2-1.0) mg/dL AST (15-37) U/L ALT (16-63) U/L Alkaline Phosphatase (46-116) U/L C-Reactive Protein (<1.0) mg/dL Total Protein (6.4-8.2) g/dl Albumin (3.4-5.0) g/dl Globulin gm/dL Albumin/Globulin Ratio (1-2) Procalcitonin (<0.10) ng/mL Vancomycin Trough 15.4 (10.0-20.0) 06/29/20 06/29/20 Range/Units 06:44 11:27 WBC (4.23-9.07) K/mm3 RBC (4.63-6.08) M/mm3 Hgb (13.7-17.5) gm/dl Hct (40.1-51.0) % MCV (79.0-92.2) fl MCH (25.7-32.2) pg MCHC (32.2-35.5) g/dl RDW Std Deviation (35.1-43.9) fL Plt Count (163-337) K/mm3 MPV (9.4-12.3) fl Neut % (Auto) (34.0-67.9) % Lymph % (Auto) (21.8-53.1) % Hooker % (Auto) (5.3-12.2) % Eos % (Auto) (0.8-7.0) Baso % (Auto) (0.1-1.2) % Neut # (Auto) (1.78-5.38) K/mm3 Lymph # (Auto) (1.32-3.57) K/mm3 Hooker # (Auto) (0.30-0.82) K/mm3 Eos # (Auto) (0.04-0.54) K/mm3 Baso # (Auto) (0.01-0.08) K/mm3 Manual Slide Review Sodium 138 (136-145) mEq/L Potassium 4.2 (3.5-5.1) mEq/L Chloride 101 (98-107) mEq/L Carbon Dioxide 34 H (21-32) mEq/L Anion Gap 7.2 (5-15) BUN 48 H (7-18) mg/dL Creatinine 1.3 (0.7-1.3) mg/dL Est Cr Clr Drug Dosing 54.17 mL/min Estimated GFR (MDRD) 53 (>60) mL/min BUN/Creatinine Ratio 36.9 H (14-18) Glucose 225 H (83-115) mg/dL POC Glucose 276 H (83-110) mg/dL Calcium 8.4 L (8.5-10.1) mg/dL Phosphorus 3.5 (2.6-4.7) mg/dL Magnesium 2.0 (1.8-2.4) mg/dl Total Bilirubin 0.5 (0.2-1.0) mg/dL AST 15 (15-37) U/L ALT 33 (16-63) U/L Alkaline Phosphatase 43 L (46-116) U/L C-Reactive Protein 12.3 H* (<1.0) mg/dL Total Protein 5.1 L (6.4-8.2) g/dl Albumin 1.9 L (3.4-5.0) g/dl Globulin 3.2 gm/dL Albumin/Globulin Ratio 0.6 L (1-2) Procalcitonin (<0.10) ng/mL Vancomycin Trough (10.0-20.0) Michael Results Last 24 Hours: Microbiology 06/26/20 08:32 Urine Culture - Final Urine, Clean Catch Klebsiella Oxytoca 06/27/20 11:12 Wound Culture - Final Leg, Right Klebsiella Oxytoca 06/26/20 06:52 Aerobic Blood Culture - Preliminary Blood - Venous - Lab Draw NO GROWTH AFTER 3 DAYS Anaerobic Blood Culture - Final 06/26/20 06:36 Aerobic Blood Culture - Preliminary Blood - Venous NO GROWTH AFTER 3 DAYS Anaerobic Blood Culture - Preliminary NO GROWTH AFTER 3 DAYS Med Orders - Current: Current Medications Acetaminophen (Tylenol) 650 mg PO Q4H PRN PRN Reason: Pain (Mild 1-3)/fever Albuterol (Proventil Hfa) 0 gm INH QID PRN PRN Reason: Shortness of Breath Last Admin: 06/28/20 04:56 Dose: 2 puff Documented by: Arformoterol Tartrate (Brovana) 15 mcg INH BIDRT [facility] Last Admin: 06/29/20 05:28 Dose: Not Given Documented by: Artificial Tears (Refresh Liquigel 1%) 0 ml EYEBOTH QID [facility] Last Admin: 06/29/20 12:46 Dose: 1 drop Documented by: Aspirin (Aspirin) 81 mg PO DAILY [facility] Last Admin: 06/29/20 08:35 Dose: 81 mg Documented by: Benzonatate (Tessalon Perles) 100 mg PO Q4HR PRN PRN Reason: Cough Budesonide (Pulmicort) 0.25 mg INH BIDRT [facility] Last Admin: 06/29/20 05:27 Dose: 0.25 mg Documented by: Calamine/Zinc Oxide (Calamine Lotion) 3 ml TOP Q4HR [facility] Last Admin: 06/29/20 12:46 Dose: 1 applic Documented by: Calcium Carbonate/Glycine (Tums) 1,000 mg PO DAILY PRN PRN Reason: Heartburn Captopril (Capoten) 50 mg PO BIDAC [facility] Last Admin: 06/29/20 05:34 Dose: 50 mg Documented by: Clopidogrel Bisulfate (Plavix) 75 mg PO DAILY [facility] Last Admin: 06/29/20 08:36 Dose: 75 mg Documented by: Dexamethasone (Dexamethasone) 8 mg PO DAILY [facility] Last Admin: 06/29/20 08:36 Dose: 8 mg Documented by: Dextrose/Water (Dextrose 50% In Water) 50 ml IV ASDIRECTED PRN PRN Reason: Hypoglycemia Diazepam (Valium) 2 mg PO Q6HR PRN PRN Reason: Anxiety Fluticasone Propionate (Flonase) 0 gm NASBOTH DAILY [facility] Last Admin: 06/29/20 08:39 Dose: 1 spray Documented by: Furosemide (Lasix) 20 mg IVPUSH DAILY [facility] Last Admin: 06/29/20 08:26 Dose: 20 mg Documented by: Gabapentin (Neurontin) 100 mg PO BID [facility] Last Admin: 06/29/20 08:36 Dose: 100 mg Documented by: Glycopyrrolate (Seebri Neohaler) 15.6 mcg IH BIDRT [facility] Last Admin: 06/29/20 05:27 Dose: 1 cap Documented by: Guaifenesin (Mucinex) 600 mg PO BID [facility] Last Admin: 06/29/20 08:35 Dose: 600 mg Documented by: Ceftriaxone Sodium 2 gm/ (Sodium Chloride) 100 mls @ 200 mls/hr IV Q24H [facility] Last Admin: 06/29/20 08:31 Dose: 200 mls/hr Documented by: Vancomycin HCl 1 gm/Vancomycin HCl 500 mg/ Sodium Chloride 500 mls @ 250 mls/hr IV Q18H [facility] Last Admin: 06/29/20 00:42 Dose: 250 mls/hr Documented by: Insulin Glargine (Lantus) 25 unit SUBCUT BID [facility] Last Admin: 06/29/20 10:20 Dose: 25 units Documented by: Insulin Human Lispro (Humalog) 0 unit SUBCUT QIDACANDBED [facility]; Protocol Last Admin: 06/29/20 11:47 Dose: 6 units Documented by: Insulin Human Lispro (Humalog) 15 unit SUBCUT TIDPC [facility] Last Admin: 06/29/20 12:46 Dose: 15 unit Documented by: Isosorbide Mononitrate (Imdur) 120 mg PO DAILY [facility] Last Admin: 06/29/20 08:35 Dose: 120 mg Documented by: Levothyroxine Sodium (Synthroid) 50 mcg PO ACBRK [facility] Last Admin: 06/29/20 05:34 Dose: 50 mcg Documented by: Magnesium Hydroxide (Milk Of Magnesia) 30 ml PO Q6H [facility] Stop: 06/30/20 08:01 Last Admin: 06/29/20 14:07 Dose: 30 ml Documented by: Metoprolol Tartrate (Lopressor) 50 mg PO BID [facility] Last Admin: 06/29/20 08:36 Dose: 50 mg Documented by: Montelukast Sodium (Singulair) 10 mg PO BEDTIME [facility] Last Admin: 06/28/20 21:15 Dose: 10 mg Documented by: Nitroglycerin (Nitrostat) 0.4 mg SL ASDIRECTED PRN PRN Reason: Chest Pain Ondansetron HCl (Zofran) 4 mg IV Q4H PRN PRN Reason: Nausea/Vomiting Oxycodone/Acetaminophen (Percocet 325-5 Mg) 1 - 2 tab PO Q4H PRN PRN Reason: pain relief. Last Admin: 06/28/20 11:16 Dose: 2 tab Documented by: Pantoprazole Sodium (Protonix) 40 mg PO DAILY@0700 [facility] Last Admin: 06/29/20 10:16 Dose: Not Given Documented by: Polyethylene Glycol (Miralax) 17 gm PO DAILY PRN PRN Reason: Constipation Last Admin: 06/28/20 18:18 Dose: 17 gm Documented by: Ranolazine (Ranexa) 500 mg PO BID [facility] Last Admin: 06/29/20 08:35 Dose: 500 mg Documented by: Rosuvastatin Calcium (Crestor) 20 mg PO DAILY [facility] Last Admin: 06/29/20 08:36 Dose: 20 mg Documented by: Tamsulosin HCl (Flomax) 0.8 mg PO BEDTIME [facility] Last Admin: 06/28/20 21:16 Dose: 0.8 mg Documented by: Trazodone HCl (Trazodone) 50 mg PO BEDTIME PRN PRN Reason: Sleep Last Admin: 06/28/20 23:13 Dose: 50 mg Documented by: Valacyclovir HCl (Valtrex) 1,000 mg PO TID [facility] Stop: 07/03/20 21:00 Last Admin: 06/29/20 14:07 Dose: 1,000 mg Documented by: Vancomycin HCl (Pharmacy To Dose - Vancomycin) 1 dose .XX ASDIRECTED PRN PRN Reason: RX TO DOSE VANCO Discontinued Medications Arformoterol Tartrate (Brovana) 15 mcg INH BIDRT [facility] Last Admin: 06/27/20 05:57 Dose: Not Given Documented by: Captopril (Capoten) 50 mg PO BIDAC [facility] Last Admin: 06/26/20 21:24 Dose: Not Given Documented by: Dextrose/Water (Dextrose 50% In Water) 50 ml IV ASDIRECTED PRN PRN Reason: Hypoglycemia Last Admin: 06/26/20 17:19 Dose: 50 ml Documented by: Diphenhydramine HCl (Benadryl) 25 mg IVPUSH ONETIME ONE Stop: 06/26/20 06:22 Last Admin: 06/26/20 06:38 Dose: 25 mg Documented by: Enoxaparin Sodium (Lovenox) 40 mg SUBCUT DAILY [facility] Last Admin: 06/28/20 08:28 Dose: 40 mg Documented by: Furosemide (Lasix) 40 mg IVPUSH NOW ONE Stop: 06/26/20 18:01 Last Admin: 06/26/20 18:43 Dose: 40 mg Documented by: Furosemide (Lasix) 20 mg IVPUSH ONETIME ONE Stop: 06/27/20 16:01 Last Admin: 06/27/20 17:21 Dose: 20 mg Documented by: Furosemide (Lasix) 20 mg IVPUSH ONETIME ONE Stop: 06/28/20 21:47 Last Admin: 06/28/20 23:13 Dose: 20 mg Documented by: Glycopyrrolate (Seebri Neohaler) 15.6 mcg IH BID [facility] Last Admin: 06/26/20 20:44 Dose: 1 cap Documented by: Sodium Chloride (Normal Saline) 1,000 mls @ 100 mls/hr IV ASDIRECTED [facility] Last Admin: 06/26/20 06:38 Dose: 100 mls/hr Documented by: Vancomycin HCl 2 gm/ Sodium (Chloride) 500 mls @ 250 mls/hr IV ONETIME ONE Stop: 06/27/20 13:59 Last Admin: 06/27/20 11:56 Dose: 250 mls/hr Documented by: Albumin Human (Flexbumin 25%) 12.5 gm in 50 mls @ 100 mls/hr IV ONETIME ONE Stop: 06/28/20 22:22 Last Admin: 06/28/20 23:13 Dose: 100 mls/hr Documented by: Insulin Glargine (Lantus) 40 unit SUBCUT BIDAC [facility] Last Admin: 06/26/20 21:25 Dose: Not Given Documented by: Insulin Glargine (Lantus) 20 unit SUBCUT BIDAC [facility] Last Admin: 06/28/20 06:21 Dose: 20 units Documented by: Insulin Glargine (Lantus) 20 unit SUBCUT NOW STA Stop: 06/26/20 22:37 Last Admin: 06/26/20 22:54 Dose: 20 units Documented by: Insulin Glargine (Lantus) 25 unit SUBCUT BIDAC [facility] Last Admin: 06/29/20 10:16 Dose: Not Given Documented by: Insulin Human Lispro (Humalog) 8 unit SUBCUT TIDAC [facility] Last Admin: 06/28/20 08:24 Dose: 8 unit Documented by: Lorazepam (Ativan) 0.5 mg IVPUSH ONETIME ONE Stop: 06/26/20 06:23 Last Admin: 06/26/20 06:39 Dose: 0.5 mg Documented by: Non-Formulary Medication (Incruse Ellipta 62.5mcg/Inh) 1 puff INH BID [facility] Last Admin: 06/27/20 22:22 Dose: Not Given Documented by: Valacyclovir HCl (Valtrex) 1,000 mg PO TID [facility] Last Admin: 06/27/20 02:25 Dose: Not Given Documented by: Valacyclovir HCl (Valtrex) 1,000 mg PO Q12H [facility] Last Admin: 06/28/20 21:37 Dose: 1,000 mg Documented by: - Exam Quality Assessment: DVT Prophylaxis General: Alert, Oriented, Cooperative HEENT: Pupils Equal, Pupils Reactive, EOMI Neck: Trachea Midline, No JVD Lungs: Normal Respiratory Effort Cardiovascular: Regular Rate, Regular Rhythm GI/Abdominal Exam: Normal Bowel Sounds, Soft, Non-Tender, No Distention (Male) Exam: Deferred Back Exam: Normal Inspection Extremities: Normal Inspection, Normal Capillary Refill Skin: Warm Neurological: No New Focal Deficit Psy/Mental Status: Alert Sepsis Event Note - Evaluation Sepsis Screening Result: No Definite Risk - Focused Exam Vital Signs: Vital Signs Temp Pulse Resp BP Pulse Ox Pulse Ox 06/29/20 16:00 15 06/29/20 15:23 36.4 C 79 12 138/53 L 97 06/29/20 15:00 12 06/29/20 14:00 18 06/29/20 13:00 10 L 06/29/20 12:00 10 L 06/29/20 11:30 36.3 C 62 21 H 120/60 98 06/29/20 11:00 16 06/29/20 10:00 15 06/29/20 09:00 13 06/29/20 08:36 77 176/71 H 06/29/20 08:08 92 L 06/29/20 08:00 18 06/29/20 07:35 36.3 C 77 15 176/71 H 95 06/29/20 07:00 9 L 06/29/20 06:00 9 L 06/29/20 05:34 133/62 06/29/20 05:29 96 06/29/20 05:00 8 L - Problem List & Annotations (1) Acute herpes zoster neuropathy SNOMED Code(s): 319725302 Code(s): B02.23 - POSTHERPETIC POLYNEUROPATHY Status: Acute Current Visit: Yes (2) Anemia, macrocytic SNOMED Code(s): 15839412 Code(s): D53.9 - NUTRITIONAL ANEMIA, UNSPECIFIED Status: Acute Current Visit: Yes (3) Atrial flutter SNOMED Code(s): 0833646 Code(s): I48.92 - UNSPECIFIED ATRIAL FLUTTER Status: Chronic Current Visit: Yes (4) Cellulitis of right leg SNOMED Code(s): 866812529 Code(s): L03.115 - CELLULITIS OF RIGHT LOWER LIMB Status: Acute Current Visit: Yes (5) Lung cancer SNOMED Code(s): 035026115 Code(s): C34.90 - MALIGNANT NEOPLASM OF UNSP PART OF UNSP BRONCHUS OR LUNG Status: Chronic Current Visit: Yes Qualifiers: Laterality: right Lung location: lower lobe of lung Qualified Code(s): C34.31 - Malignant neoplasm of lower lobe, right bronchus or lung (6) Generalized weakness SNOMED Code(s): 20253041 Code(s): R53.1 - WEAKNESS Status: Acute Current Visit: No (7) CHF, Congestive heart failure SNOMED Code(s): 30259661 Code(s): I50.9 - HEART FAILURE, UNSPECIFIED Status: Chronic Priority: Medium Current Visit: No (8) CKD (chronic kidney disease) stage 3, GFR 30-59 ml/min SNOMED Code(s): 169569656 Code(s): N18.3 - CHRONIC KIDNEY DISEASE, STAGE 3 (MODERATE) * DO NOT USE * Status: Chronic Priority: Medium Current Visit: No (9) COPD (chronic obstructive pulmonary disease) with chronic bronchitis SNOMED Code(s): 236704223 Code(s): J44.9 - CHRONIC OBSTRUCTIVE PULMONARY DISEASE, UNSPECIFIED Status: Chronic Priority: Medium Current Visit: No - Problem List Review Problem List Initiated/Reviewed/Updated: Yes - My Orders Last 24 Hours: My Active Orders 06/29/20 14:00 Magnesium Hydroxide [Milk of Magnesia] 30 ml PO Q6H - Plan Plan:: Assessment 06/26/2020 * 80-year-old male with 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 * Started on dexamethasone 8 mg daily by his oncologist on 06/21/2020 for 7 days then to decrease to 4 mg daily * Records from oncology states he was to have venous duplex lower extremity Dopplers bilaterally on 06/22/2020 * Exacerbation of CHF * proBNP 1251 * Significant lower extremity edema * Left lower lobe pneumonia versus atelectasis. * Patient has a normal WBC with no shift * Covid negative * CRP elevated at 11.9, but this is nonspecific and may be secondary to his cancer * Given Rocephin in the emergency department * Right lower extremity cellulitis with diabetic ulcer * Chronic lower extremity edema * Getting almost daily wraps to the right lower extremity * Significant erythema and weeping of the lower extremity * Right shoulder shingles * Started on Valtrex yesterday in the ER * Also on Percocet for pain. Patient developed shaking chills this morning after taking 2 Percocet * Insulin-dependent type 2 diabetes * Patient was found to have a blood sugar of 43 on admission to the floor. He was given 1 amp 50% glucose * Home records indicate he is on glargine 42 units twice daily. The records from [facility], "inject 84 units subcutaneously 1 time per day Take 42 units in the a.m. and 42 units in the p.m." * Home meds: NovoLog 70 to 75 units subcutaneously 3 times a day with meals * Hemoglobin A1c 7.4 * COPD * On home O2 between 3 and 4 L/min * Currently on 2 L with oxygen saturations in the upper 90s * On Brovana, budesonide, albuterol, Singulair, Incruse Ellipta * Stop smoking several years ago * Finished azithromycin prescribed by Dr. 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 He has had some improvement in his weakness, but nursing reports he is very somnolent. ABG did show a metabolic alkalosis with pH of 7.5, PCO2 44.1, PO2 65, HCO3 34.3, oxygen saturations 91.5. Significant drop in his hemoglobin to 9.2. WBC normal at 6.48 with an elevation in absolute neutrophils of 5.82 with toxic granulation. Renal function stable with estimated GFR of 45. C-reactive protein significantl y increased to 25.6. Albumin decreased to 1.9. 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 * Exacerbation of CHF -minimal weight loss, 1 pound * Left lower lobe pneumonia-WBC 6.9, yesterday's procalcitonin was 0.31, C- reactive protein is essentially the same at 25.0 * Right lower extremity cellulitis with diabetic ulcer * Shinglesright shoulder * Insulin-dependent diabetic -hemoglobin A1c 7.4 -blood sugars have been between 177 and 309 * COPD, stable; O2 (2-3 l/m) * Chronic renal insufficiency-GFR 45, creatinine 1.5, BUN 43 * Elevated bilirubinimproved * Hypoalbuminemia-Albumin 1.8 * Thrombocytopenia-91,000 * Bacteriuriagram-negative rods-Klebsiella oxytoca sensitive to Rocephin * Generally patient is improving. Continues to have significant lower extremity edema, but redness seems to be improving in the lower extremity. Wound therapy is to work with him. Plan * Start Omnicef 500 mg BID at [facility] * Vancomycin, stopped 06/29/2020 * Blood cultures -negative * Diuretic * Lasix 20 mg IV daily * PT/OT at [facility] * Wound therapy at [facility] * Valtrex, herpetic pain * O2, 2-3 l/m * Dexamethasone per Oncology * CODE STATUS: DNR/DNI * Length of stay depending on progress with physical therapy and edema.
[2020-06-29] MEDS: Tamsulosin 0.4 MG Cap.ER PO SCH (21:14)
[2020-06-29] MEDS: traZODone 50 MG Tab PO PRN (21:14)
[2020-06-29] MEDS: Montelukast 10 MG Tab PO SCH (21:14)
[2020-06-29] MEDS: Albuterol 6.7 GM Inhaler INH PRN (21:40)
[2020-06-30] MEDS: Calamine/Zinc Oxide Lotion 177 ML Bottle TOP SCH ×4 (00:30→13:08)
[2020-06-30] MEDS: Magnesium Hydroxide 400 MG/5 ML Susp 30 ML Cup PO SCH ×2 (01:15→07:00)
[2020-06-30] MEDS: Albuterol 6.7 GM Inhaler INH PRN (05:34)
[2020-06-30] MEDS: Budesonide 0.25 MG/2 ML Neb Susp INH SCH (05:34)
[2020-06-30] MEDS: Arformoterol 15 MCG/2 ML Neb Soln INH SCH (05:34)
[2020-06-30] MEDS: Glycopyrrolate 15.6 MCG Cap.W.Dev Kit of 6 IH SCH (05:35)
[2020-06-30] MEDS: Levothyroxine 50 MCG Tab PO SCH (06:38)
[2020-06-30] MEDS: Pantoprazole 40 MG Tab.CR PO SCH (06:40)
[2020-06-30] MEDS: Insulin Lispro 100 Units/ML 3 ML Vial SUBCUT SCH ×4 (06:48→13:09)
[2020-06-30] MEDS: cefTRIAXone 2 GM in Sodium Chloride 0.9% 100 ML IV SCH (09:32)
[2020-06-30] MEDS: Metoprolol Tartrate 50 MG Tab PO SCH (09:33)
[2020-06-30] MEDS: valACYclovir 1,000 MG Tab PO SCH ×2 (09:33→14:39)
[2020-06-30] MEDS: Dexamethasone 4 MG Tab PO SCH (09:34)
[2020-06-30] MEDS: Clopidogrel 75 MG Tab PO SCH (09:34)
[2020-06-30] MEDS: Rosuvastatin 10 MG Tab PO SCH (09:34)
[2020-06-30] MEDS: Aspirin 81 MG Tab.Chew PO SCH (09:35)
[2020-06-30] MEDS: Gabapentin 100 MG Cap PO SCH (09:35)
[2020-06-30] MEDS: guaiFENesin 600 MG Tab.ER PO SCH (09:35)
[2020-06-30] MEDS: Insulin Glarg,Human.Rec.Analog 100 Unit/ML SUBCUT SCH (09:35)
[2020-06-30] MEDS: Isosorbide Mononitrate 60 MG Tab.ER PO SCH (09:35)
[2020-06-30] MEDS: Carboxymethylcellulose Sodium 1% Ophth Gel 15 ML Bottle EYEBOTH SCH ×2 (09:37→13:08)
[2020-06-30] MEDS: Fluticasone Propionate Nasal Spray 16 GM Bottle NASBOTH SCH (09:37)
[2020-06-30] MEDS: Furosemide 20 MG/2 ML VIAL IVPUSH SCH (09:37)
[2020-06-30 12:25] VITALS: BP 150/71; PULSE 73
--- NOTE | 2020-06-30 13:54 | PCM.DCSUM1 ---
Discharge Summary - Hospital Course Free Text/Narrative:: 80 year old male treated for RLE cellulitis, herpes zoster respectfully with Rocephin/Valtrex. He was ruled out for Covid-19. LE has required wound dressing changes. He had Klebsiella in urine as well as his wound. The organism was senstivie to Rocephin, he was also treated transiently with Vancomycin. HPI Initial Comments: 80 year old male with multiple sources of infection, ruled out for Covid-19 infection. The patient required ATB therapy for lower extremity cellulitis, AUTI. 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 PT/OT wre ordered and continued at [facility]. Wound care will be continued by HH at [facility]. Brief History: See previous section Diagnosis: Stroke: No - Discharge Data Discharge Date: 06/30/20 Discharge Disposition: Home, W Home Health Agency 06 Condition: Good - Referral to Home Health Date of Face to Face Encounter: 06/30/20 Reason for Homebound Status: Decreased mobility, and generalized weakness. Primary Care Physician: Saleem Guillermo Jr, MD Skilled Need: see notation in d/c summary - Discharge Diagnosis/Problem(s) (1) Acute herpes zoster neuropathy SNOMED Code(s): 072404505 ICD Code: B02.23 - POSTHERPETIC POLYNEUROPATHY Status: Acute (2) Anemia, macrocytic SNOMED Code(s): 35907120 ICD Code: D53.9 - NUTRITIONAL ANEMIA, UNSPECIFIED Status: Acute (3) Atrial flutter SNOMED Code(s): 5110471 ICD Code: I48.92 - UNSPECIFIED ATRIAL FLUTTER Status: Chronic (4) Cellulitis of right leg SNOMED Code(s): 230744570 ICD Code: L03.115 - CELLULITIS OF RIGHT LOWER LIMB Status: Acute (5) Lung cancer SNOMED Code(s): 501523585 ICD Code: C34.90 - MALIGNANT NEOPLASM OF UNSP PART OF UNSP BRONCHUS OR LUNG Status: Chronic Qualifiers: Laterality: right Lung location: lower lobe of lung Qualified Code(s): C34.31 - Malignant neoplasm of lower lobe, right bronchus or lung (6) Generalized weakness SNOMED Code(s): 56112219 ICD Code: R53.1 - WEAKNESS Status: Acute (7) CHF, Congestive heart failure SNOMED Code(s): 58168344 ICD Code: I50.9 - HEART FAILURE, UNSPECIFIED Status: Chronic Priority: Medium (8) CKD (chronic kidney disease) stage 3, GFR 30-59 ml/min SNOMED Code(s): 893233234 ICD Code: N18.3 - CHRONIC KIDNEY DISEASE, STAGE 3 (MODERATE) * DO NOT USE * Status: Chronic Priority: Medium (9) COPD (chronic obstructive pulmonary disease) with chronic bronchitis SNOMED Code(s): 475953900 ICD Code: J44.9 - CHRONIC OBSTRUCTIVE PULMONARY DISEASE, UNSPECIFIED Status: Chronic Priority: Medium (10) Metastasis to brain Status: Chronic (11) Pneumonia SNOMED Code(s): 786576232 ICD Code: J18.9 - PNEUMONIA, UNSPECIFIED ORGANISM Status: Acute Priority: High Qualifiers: Pneumonia type: due to unspecified organism Laterality: left Lung location: lower lobe of lung Qualified Code(s): J18.9 - Pneumonia, unspecified organism (12) Thrombocytopenia SNOMED Code(s): 531455977 ICD Code: D69.6 - THROMBOCYTOPENIA, UNSPECIFIED Status: Acute - Patient Summary/Data Consults: Consultations 06/26/20 13:41 OT Evaluation and Treatment [CONS] Routine PT Evaluation and Treatment [CONS] Routine 06/26/20 20:21 PT Evaluation and Treatment [CONS] Routine Recommended Follow-up Testing/Procedures: Follow up, 2-4 weeks after DC with PCP; Oncology, Cardiology providers to be scheduled. Hospital Course: IV ATBs, multiple consults for improved mobility. See above. - Patient Instructions Diet: Usual Diet as Tolerated Activity: As Tolerated Driving: Do Not Drive Showering/Bathing: May Shower Wound/Incision Care: Change Dressing Daily Notify Provider of: Fever, Drainage, Nausea and/or Vomiting - Discharge Plan *PRESCRIPTION DRUG MONITORING PROGRAM REVIEWED*: Not Applicable *COPY OF PRESCRIPTION DRUG MONITORING REPORT IN PATIENT FIOR: Not Applicable Prescriptions/Med Rec: Cefdinir [Omnicef] 300 mg PO BID #14 cap valACYclovir [Valtrex] 1,000 mg PO TID #9 tablet Home Medications: Home Meds Nitroglycerin [Nitrostat] 0.4 mg SL ASDIRECTED PRN 03/05/14 [History] Acetaminophen [Acetaminophen Extra Strength] 1,000 mg PO BID PRN 02/20/15 [History] Budesonide [Pulmicort] 1 ampule INH BID 06/30/16 [History] Montelukast [Singulair] 10 mg PO BEDTIME 06/30/16 [History] Gabapentin [Neurontin] 100 mg PO BID 01/27/18 [History] Albuterol [Ventolin HFA] 2 puff INH QID PRN 09/30/18 [History] Calcium Carb/Magnesium Hydrox [Antacid Chewable Tablet] 1,000 mg PO DAILY PRN 10/01/18 [History] Arformoterol [Brovana] 1 inh INH BID 05/05/20 [History] Aspirin 81 mg PO DAILY 05/05/20 [History] Benzonatate [Tessalon Perle] 100 - 200 mg PO Q4HR PRN 05/05/20 [History] Carboxymethylcellulose Sodium [Refresh Liquigel 1%] 1 dose EYEBOTH QID 05/05/20 [History] Clopidogrel Bisulfate [Plavix] 75 mg PO DAILY 05/05/20 [History] Diphenhyd/Lidocaine/Nystatin [Magic Mouthwash] 30 ml PO QID 05/05/20 [History] Fluticasone Propionate [Flonase] 2 spray NASBOTH DAILY 05/05/20 [History] Furosemide [Lasix] 20 mg PO DAILY 05/05/20 [History] Incruse Ellipta 62.5mcg/Inh 1 puff INH BID 05/05/20 [History] Ipratropium [Atrovent HFA] 2 puff INH TID 05/05/20 [History] Levothyroxine [Synthroid] 50 mg PO DAILY 05/05/20 [History] Metoprolol Tartrate 50 mg PO BID 05/05/20 [History] Omeprazole 40 mg PO DAILY 05/05/20 [History] Ondansetron [Zofran] 4 mg PO TID PRN 05/05/20 [History] Promethazine HCl/Codeine [Prometh-Codein 6.25-10 mg/5 ml] 10 ml PO Q8HR PRN 05/05/20 [History] Ranolazine [Ranolazine ER] 500 mg PO BID 05/05/20 [History] Sodium Chloride/Aloe Vera [[place] Saline Nasal Gel Solomon] 2 spray GISEL TID 05/05/20 [History] Tamsulosin [Flomax] 0.8 mg PO DAILY 05/05/20 [History] Triamcinolone Acetonide [Triamcinolone Acetonide 0.1% Crm] 1 dose TOP DAILY 05/05/20 [History] captopriL [Capoten] 50 mg PO BID 05/05/20 [History] dexAMETHasone [Dexamethasone] 4 mg PO DAILY 05/05/20 [History] diazePAM [Valium] 2 mg PO Q6HR PRN 05/05/20 [History] guaiFENesin [Mucinex] 600 mg PO BID 05/05/20 [History] Insulin Aspart [NovoLOG] 70 - 75 unit SQ TID 06/26/20 [History] Insulin Glargine,Hum.Rec.Anlog [Basaglar Kwikpen U-100] 42 unit SQ BID 06/26/20 [History] Isosorbide Mononitrate [Isosorbide Mononitrate ER] 120 mg PO DAILY 06/26/20 [History] Non-Formulary Medication [NF Drug] 1 inh INH BID 06/26/20 [History] Rosuvastatin Calcium 20 mg PO DAILY 06/26/20 [History] Cefdinir [Omnicef] 300 mg PO BID #14 cap 06/30/20 [Rx] valACYclovir [Valtrex] 1,000 mg PO TID #9 tablet 06/30/20 [Rx] Oxygen Therapy Mode: Nasal Cannula (2-4 l/m as prescribed) Patient Handouts: Type 2 Diabetes Mellitus, Diagnosis, Adult, Heart Failure Action Plan, Sepsis, Diagnosis, Adult, Heart Failure, Diagnosis Referrals: Saleem Guillermo Jr, MD [Primary Care Provider] - 07/07/20 2:00 pm - Discharge Summary/Plan Comment DC Time >30 min.: No Discharge Summary/Plan Comment: PT/OT as prescribed. Home Health resumed O2 therapy as prescribed. Omnicef 300 mg BID for 7 days Valtrex 1 gm TID for 7 days, patient has received treatment for 4 days. Decadron 4mg daily per Oncology - General Info Date of Service: 06/26/20 Functional Status: Reports: Pain Controlled, Tolerating Diet - Review of Systems General: Reports: No Symptoms HEENT: Reports: No Symptoms Pulmonary: Reports: No Symptoms Cardiovascular: Reports: No Symptoms Gastrointestinal: Reports: No Symptoms Genitourinary: Reports: No Symptoms Musculoskeletal: Reports: No Symptoms Skin: Reports: No Symptoms Neurological: Reports: No Symptoms Psychiatric: Reports: No Symptoms - Patient Data Vitals - Most Recent: Last Vital Signs Temp 36.3 C 06/30/20 11:22 Pulse 73 06/30/20 11:22 Resp 13 06/30/20 11:28 BP 150/71 H 06/30/20 11:22 Pulse Ox 100 06/30/20 11:22 Weight - Most Recent: 107.139 kg I&O - Last 24 hours: Intake & Output 06/29/20 06/30/20 06/30/20 22:59 06:59 14:59 Intake Total 720 375 500 Output Total 700 975 Balance 20 -600 500 Lab Results - Last 24 hrs: Laboratory Results - last 24 hr 06/29/20 06/29/20 06/30/20 Range/Units 16:39 20:59 06:42 WBC (4.23-9.07) K/mm3 RBC (4.63-6.08) M/mm3 Hgb (13.7-17.5) gm/dl Hct (40.1-51.0) % MCV (79.0-92.2) fl MCH (25.7-32.2) pg MCHC (32.2-35.5) g/dl RDW Std Deviation (35.1-43.9) fL Plt Count (163-337) K/mm3 MPV (9.4-12.3) fl Neut % (Auto) (34.0-67.9) % Lymph % (Auto) (21.8-53.1) % [place] % (Auto) (5.3-12.2) % Eos % (Auto) (0.8-7.0) Baso % (Auto) (0.1-1.2) % Neut # (Auto) (1.78-5.38) K/mm3 Lymph # (Auto) (1.32-3.57) K/mm3 [place] # (Auto) (0.30-0.82) K/mm3 Eos # (Auto) (0.04-0.54) K/mm3 Baso # (Auto) (0.01-0.08) K/mm3 Manual Slide Review Sodium (136-145) mEq/L Potassium (3.5-5.1) mEq/L Chloride (98-107) mEq/L Carbon Dioxide (21-32) mEq/L Anion Gap (5-15) BUN (7-18) mg/dL Creatinine (0.7-1.3) mg/dL Est Cr Clr Drug Dosing mL/min Estimated GFR (MDRD) (>60) mL/min BUN/Creatinine Ratio (14-18) Glucose (83-115) mg/dL POC Glucose 215 H 224 H 141 H (83-110) mg/dL Calcium (8.5-10.1) mg/dL 06/30/20 06/30/20 06/30/20 Range/Units 10:55 12:27 12:27 WBC 10.46 H (4.23-9.07) K/mm3 RBC 3.09 L (4.63-6.08) M/mm3 Hgb 9.6 L D (13.7-17.5) gm/dl Hct 30.9 L (40.1-51.0) % MCV 100.0 H (79.0-92.2) fl MCH 31.1 (25.7-32.2) pg MCHC 31.1 L (32.2-35.5) g/dl RDW Std Deviation 52.9 H (35.1-43.9) fL Plt Count 149 L (163-337) K/mm3 MPV 9.8 (9.4-12.3) fl Neut % (Auto) 84.4 H (34.0-67.9) % Lymph % (Auto) 4.8 L (21.8-53.1) % [place] % (Auto) 6.7 (5.3-12.2) % Eos % (Auto) 0 L (0.8-7.0) Baso % (Auto) 0.3 (0.1-1.2) % Neut # (Auto) 8.83 H (1.78-5.38) K/mm3 Lymph # (Auto) 0.50 L (1.32-3.57) K/mm3 [place] # (Auto) 0.70 (0.30-0.82) K/mm3 Eos # (Auto) 0.00 L (0.04-0.54) K/mm3 Baso # (Auto) 0.03 (0.01-0.08) K/mm3 Manual Slide Review Abnormal smear Sodium 140 (136-145) mEq/L Potassium 4.4 (3.5-5.1) mEq/L Chloride 100 (98-107) mEq/L Carbon Dioxide 36 H (21-32) mEq/L Anion Gap 8.4 (5-15) BUN 50 H (7-18) mg/dL Creatinine 1.3 (0.7-1.3) mg/dL Est Cr Clr Drug Dosing 54.17 mL/min Estimated GFR (MDRD) 53 (>60) mL/min BUN/Creatinine Ratio 38.5 H (14-18) Glucose 151 H (83-115) mg/dL POC Glucose 170 H (83-110) mg/dL Calcium 8.9 (8.5-10.1) mg/dL BEAR Results - Last 24 hrs: Microbiology 06/28/20 07:10 Occult Blood - Preliminary Stool / Feces 06/26/20 06:52 Aerobic Blood Culture - Preliminary Blood - Venous - Lab Draw NO GROWTH AFTER 4 DAYS Anaerobic Blood Culture - Final 06/26/20 06:36 Aerobic Blood Culture - Preliminary Blood - Venous NO GROWTH AFTER 4 DAYS Anaerobic Blood Culture - Preliminary NO GROWTH AFTER 4 DAYS 06/26/20 08:32 Urine Culture - Final Urine, Clean Catch Klebsiella Oxytoca 06/27/20 11:12 Wound Culture - Final Leg, Right Klebsiella Oxytoca Med Orders - Current: Current Medications Acetaminophen (Tylenol) 650 mg PO Q4H PRN PRN Reason: Pain (Mild 1-3)/fever Albuterol (Proventil Hfa) 0 gm INH QID PRN PRN Reason: Shortness of Breath Last Admin: 06/30/20 05:34 Dose: 2 puff Documented by: Arformoterol Tartrate (Brovana) 15 mcg INH BIDRT [facility] Last Admin: 06/30/20 05:34 Dose: 15 mcg Documented by: Artificial Tears (Refresh Liquigel 1%) 0 ml EYEBOTH QID [facility] Last Admin: 06/30/20 13:08 Dose: Not Given Documented by: Aspirin (Aspirin) 81 mg PO DAILY [facility] Last Admin: 06/30/20 09:35 Dose: 81 mg Documented by: Benzonatate (Tessalon Perles) 100 mg PO Q4HR PRN PRN Reason: Cough Budesonide (Pulmicort) 0.25 mg INH BIDRT [facility] Last Admin: 06/30/20 05:34 Dose: 0.25 mg Documented by: Calamine/Zinc Oxide (Calamine Lotion) 3 ml TOP Q4HR [facility] Last Admin: 06/30/20 13:08 Dose: Not Given Documented by: Calcium Carbonate/Glycine (Tums) 1,000 mg PO DAILY PRN PRN Reason: Heartburn Captopril (Capoten) 50 mg PO BIDAC [facility] Last Admin: 06/30/20 06:38 Dose: 50 mg Documented by: Cefdinir (Omnicef) 300 mg PO BID [facility] Clopidogrel Bisulfate (Plavix) 75 mg PO DAILY [facility] Last Admin: 06/30/20 09:34 Dose: 75 mg Documented by: Dexamethasone (Dexamethasone) 8 mg PO DAILY [facility] Last Admin: 06/30/20 09:34 Dose: 8 mg Documented by: Dextrose/Water (Dextrose 50% In Water) 50 ml IV ASDIRECTED PRN PRN Reason: Hypoglycemia Diazepam (Valium) 2 mg PO Q6HR PRN PRN Reason: Anxiety Fluticasone Propionate (Flonase) 0 gm NASBOTH DAILY [facility] Last Admin: 06/30/20 09:37 Dose: 2 spray Documented by: Furosemide (Lasix) 20 mg IVPUSH DAILY [facility] Last Admin: 06/30/20 09:37 Dose: 20 mg Documented by: Gabapentin (Neurontin) 100 mg PO BID [facility] Last Admin: 06/30/20 09:35 Dose: 100 mg Documented by: Glycopyrrolate (Seebri Neohaler) 15.6 mcg IH BIDRT [facility] Last Admin: 06/30/20 05:35 Dose: 1 cap Documented by: Guaifenesin (Mucinex) 600 mg PO BID [facility] Last Admin: 06/30/20 09:35 Dose: 600 mg Documented by: Insulin Glargine (Lantus) 25 unit SUBCUT BID [facility] Last Admin: 06/30/20 09:35 Dose: 25 units Documented by: Insulin Human Lispro (Humalog) 0 unit SUBCUT QIDACANDBED [facility]; Protocol Last Admin: 06/30/20 11:37 Dose: 2 units Documented by: Insulin Human Lispro (Humalog) 15 unit SUBCUT TIDPC [facility] Last Admin: 06/30/20 13:09 Dose: Not Given Documented by: Isosorbide Mononitrate (Imdur) 120 mg PO DAILY [facility] Last Admin: 06/30/20 09:35 Dose: 120 mg Documented by: Levothyroxine Sodium (Synthroid) 50 mcg PO ACBRK [facility] Last Admin: 06/30/20 06:38 Dose: 50 mcg Documented by: Metoprolol Tartrate (Lopressor) 50 mg PO BID [facility] Last Admin: 06/30/20 09:33 Dose: 50 mg Documented by: Montelukast Sodium (Singulair) 10 mg PO BEDTIME [facility] Last Admin: 06/29/20 21:14 Dose: 10 mg Documented by: Nitroglycerin (Nitrostat) 0.4 mg SL ASDIRECTED PRN PRN Reason: Chest Pain Ondansetron HCl (Zofran) 4 mg IV Q4H PRN PRN Reason: Nausea/Vomiting Oxycodone/Acetaminophen (Percocet 325-5 Mg) 1 - 2 tab PO Q4H PRN PRN Reason: pain relief. Last Admin: 06/28/20 11:16 Dose: 2 tab Documented by: Pantoprazole Sodium (Protonix) 40 mg PO DAILY@0700 [facility] Last Admin: 06/30/20 06:40 Dose: 40 mg Documented by: Polyethylene Glycol (Miralax) 17 gm PO DAILY PRN PRN Reason: Constipation Last Admin: 06/28/20 18:18 Dose: 17 gm Documented by: Ranolazine (Ranexa) 500 mg PO BID [facility] Last Admin: 06/30/20 09:32 Dose: 500 mg Documented by: Rosuvastatin Calcium (Crestor) 20 mg PO DAILY [facility] Last Admin: 06/30/20 09:34 Dose: 20 mg Documented by: Tamsulosin HCl (Flomax) 0.8 mg PO BEDTIME [facility] Last Admin: 06/29/20 21:14 Dose: 0.8 mg Documented by: Trazodone HCl (Trazodone) 50 mg PO BEDTIME PRN PRN Reason: Sleep Last Admin: 06/29/20 21:14 Dose: 50 mg Documented by: Valacyclovir HCl (Valtrex) 1,000 mg PO TID [facility] Stop: 07/03/20 21:00 Last Admin: 06/30/20 09:33 Dose: 1,000 mg Documented by: Discontinued Medications Arformoterol Tartrate (Brovana) 15 mcg INH BIDRT [facility] Last Admin: 06/27/20 05:57 Dose: Not Given Documented by: Captopril (Capoten) 50 mg PO BIDAC [facility] Last Admin: 06/26/20 21:24 Dose: Not Given Documented by: Dextrose/Water (Dextrose 50% In Water) 50 ml IV ASDIRECTED PRN PRN Reason: Hypoglycemia Last Admin: 06/26/20 17:19 Dose: 50 ml Documented by: Diphenhydramine HCl (Benadryl) 25 mg IVPUSH ONETIME ONE Stop: 06/26/20 06:22 Last Admin: 06/26/20 06:38 Dose: 25 mg Documented by: Enoxaparin Sodium (Lovenox) 40 mg SUBCUT DAILY [facility] Last Admin: 06/28/20 08:28 Dose: 40 mg Documented by: Furosemide (Lasix) 40 mg IVPUSH NOW ONE Stop: 06/26/20 18:01 Last Admin: 06/26/20 18:43 Dose: 40 mg Documented by: Furosemide (Lasix) 20 mg IVPUSH ONETIME ONE Stop: 06/27/20 16:01 Last Admin: 06/27/20 17:21 Dose: 20 mg Documented by: Furosemide (Lasix) 20 mg IVPUSH ONETIME ONE Stop: 06/28/20 21:47 Last Admin: 06/28/20 23:13 Dose: 20 mg Documented by: Glycopyrrolate (Seebri Neohaler) 15.6 mcg IH BID [facility] Last Admin: 06/26/20 20:44 Dose: 1 cap Documented by: Sodium Chloride (Normal Saline) 1,000 mls @ 100 mls/hr IV ASDIRECTED [facility] Last Admin: 06/26/20 06:38 Dose: 100 mls/hr Documented by: Ceftriaxone Sodium 2 gm/ (Sodium Chloride) 100 mls @ 200 mls/hr IV Q24H [facility] Last Admin: 06/30/20 09:32 Dose: 200 mls/hr Documented by: Vancomycin HCl 2 gm/ Sodium (Chloride) 500 mls @ 250 mls/hr IV ONETIME ONE Stop: 06/27/20 13:59 Last Admin: 06/27/20 11:56 Dose: 250 mls/hr Documented by: Vancomycin HCl 1 gm/Vancomycin HCl 500 mg/ Sodium Chloride 500 mls @ 250 mls/hr IV Q18H [facility] Last Admin: 06/29/20 00:42 Dose: 250 mls/hr Documented by: Albumin Human (Flexbumin 25%) 12.5 gm in 50 mls @ 100 mls/hr IV ONETIME ONE Stop: 06/28/20 22:22 Last Admin: 06/28/20 23:13 Dose: 100 mls/hr Documented by: Insulin Glargine (Lantus) 40 unit SUBCUT BIDAC [facility] Last Admin: 06/26/20 21:25 Dose: Not Given Documented by: Insulin Glargine (Lantus) 20 unit SUBCUT BIDAC [facility] Last Admin: 06/28/20 06:21 Dose: 20 units Documented by: Insulin Glargine (Lantus) 20 unit SUBCUT NOW [facility] Stop: 06/26/20 22:37 Last Admin: 06/26/20 22:54 Dose: 20 units Documented by: Insulin Glargine (Lantus) 25 unit SUBCUT BIDAC [facility] Last Admin: 06/29/20 10:16 Dose: Not Given Documented by: Insulin Human Lispro (Humalog) 8 unit SUBCUT TIDAC [facility] Last Admin: 06/28/20 08:24 Dose: 8 unit Documented by: Lorazepam (Ativan) 0.5 mg IVPUSH ONETIME ONE Stop: 06/26/20 06:23 Last Admin: 06/26/20 06:39 Dose: 0.5 mg Documented by: Magnesium Hydroxide (Milk Of Magnesia) 30 ml PO Q6H [facility] Stop: 06/30/20 08:01 Last Admin: 06/30/20 07:00 Dose: Not Given Documented by: Non-Formulary Medication (Incruse Ellipta 62.5mcg/Inh) 1 puff INH BID [facility] Last Admin: 06/27/20 22:22 Dose: Not Given Documented by: Valacyclovir HCl (Valtrex) 1,000 mg PO TID [facility] Last Admin: 06/27/20 02:25 Dose: Not Given Documented by: Valacyclovir HCl (Valtrex) 1,000 mg PO Q12H [facility] Last Admin: 06/28/20 21:37 Dose: 1,000 mg Documented by: Vancomycin HCl (Pharmacy To Dose - Vancomycin) 1 dose .XX ASDIRECTED PRN PRN Reason: RX TO DOSE VANCO - Exam Quality Assessment: Reports: Supplemental Oxygen, DVT Prophylaxis General: Reports: Alert, Oriented, Cooperative, No Acute Distress HEENT: Reports: Pupils Equal, Pupils Reactive, EOMI Neck: Reports: Trachea Midline, No JVD Lungs: Reports: Normal Respiratory Effort Cardiovascular: Reports: Regular Rate, Irregular Rhythm GI/Abdominal Exam: Normal Bowel Sounds, Soft, Non-Tender, No Distention (Male) Exam: Deferred Rectal (Males) Exam: Deferred Back Exam: Reports: Normal Inspection Extremities: Normal Inspection, Normal Capillary Refill Skin: Reports: Warm Wound/Incisions: Reports: Healing Well Neurological: Reports: No New Focal Deficit, Normal Speech Psy/Mental Status: Reports: Alert, Normal Affect, Normal Mood
[2020-07-01] MEDS ORDERED: Cefdinir 300 MG Cap PO SCH (09:00)
== END 2020-06-30 15:40 | disposition home health service (06) | DRG 194 ==
LOC: JD.ED 06:00 → JD.MS 11:22
PROVIDERS: ADMIT Family Medicine; ATTEND Family Medicine
DX: J18.9 Pneumonia, unspecified organism (principal); B02.29 Other postherpetic nervous system involvement; C34.90 Malignant neoplasm of unspecified part of unspecified bronchus or lung; L03.115 Cellulitis of right lower limb; B02.23 Postherpetic polyneuropathy; I48.92 Unspecified atrial flutter; C34.91 Malignant neoplasm of unspecified part of right bronchus or lung; I13.0 Hypertensive heart and chronic kidney disease with heart failure and stage 1 through stage 4 chronic kidney disease, or unspecified chronic kidney disease; C79.31 Secondary malignant neoplasm of brain; E87.3 Alkalosis; Z66 Do not resuscitate; Z20.828 Contact with and (suspected) exposure to other viral communicable diseases; D53.9 Nutritional anemia, unspecified; I10 Essential (primary) hypertension; I50.9 Heart failure, unspecified; N18.30 Chronic kidney disease, stage 3 unspecified; D69.6 Thrombocytopenia, unspecified; H54.7 Unspecified visual loss; E78.00 Pure hypercholesterolemia, unspecified; J43.9 Emphysema, unspecified; E11.9 Type 2 diabetes mellitus without complications; M54.9 Dorsalgia, unspecified; G89.29 Other chronic pain; M19.90 Unspecified osteoarthritis, unspecified site; N40.0 Benign prostatic hyperplasia without lower urinary tract symptoms; E11.22 Type 2 diabetes mellitus with diabetic chronic kidney disease; K21.9 Gastro-esophageal reflux disease without esophagitis; E11.42 Type 2 diabetes mellitus with diabetic polyneuropathy; I25.10 Atherosclerotic heart disease of native coronary artery without angina pectoris; E11.622 Type 2 diabetes mellitus with other skin ulcer; L98.499 Non-pressure chronic ulcer of skin of other sites with unspecified severity; B02.9 Zoster without complications; E88.09 Other disorders of plasma-protein metabolism, not elsewhere classified; Z88.8 Allergy status to other drugs, medicaments and biological substances; Z88.5 Allergy status to narcotic agent; Z79.82 Long term (current) use of aspirin; Z79.890 Hormone replacement therapy; Z79.4 Long term (current) use of insulin; Z79.899 Other long term (current) drug therapy; I25.2 Old myocardial infarction; Z87.891 Personal history of nicotine dependence; Z79.02 Long term (current) use of antithrombotics/antiplatelets; Z79.51 Long term (current) use of inhaled steroids
CPT/HCPCS: 36415; 71045; 80053; 81001; 82962; 83036; 83605; 83880; 84484; 85025; 85610; 86140; 87040 ×2; 87086; 87088; 87186; 93005; J0696; J1200; J2060; J7030; J7050; U0002; 36600; 51701; 51702; 51798; 80048; 80202; 82270; 82803; 83735; 84100; 84145; 84443; 87070; 87077; 87899; 93010; 93306; 94640; 94760; 94761; 97110-GP; 97116-GP; 97162-GP; 97165-GO; 97530-GO; 97530-GP; 97535-GO; 99285; A9270-GY; J1642; J1650; J1815-GY; J1940; J3370; J7040; J8540; P9047

== ENCOUNTER 2020-07-02 05:48 | Inpatient (IN) | payer MEDICARE, MEDICAID ==
--- NOTE | 2020-07-02 06:18 | EDM.PDOC ---
ED HPI GENERAL MEDICAL PROBLEM - General Chief Complaint: Respiratory Problem Stated Complaint: [facility] Time Seen by Provider: 07/02/20 05:58 Source of Information: Reports: Patient, Old Records (Admission 06/26/2020 + D/C 06/30/2020) History Limitations: Reports: No Limitations - History of Present Illness INITIAL COMMENTS - FREE TEXT/NARRATIVE: Mr. 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 He has been diagnosed with shingles to his left shoulder the day before, and was being treated with valacyclovir. A work-up was performed, and it was felt that the patient was suffering from pneumonia. He was admitted to this hospital through this past , 06/30/2020, being treated with IV vancomycin and IV Rocephin. He was discharged home with a prescription for Omnicef 300 mg po BID x 7 days, which he states he is taking as prescribed. The patient now returns to the ED stating that he has increased dyspnea, that he had had some nonspecific pains earlier, but not now, that he generally feels sick, and that he is afraid that he is near . No recent fever, diaphoresis, wheezing, chest discomfort, or palpitations. The patient immediately stated that he cannot go home. Here in the ED, the patient's initial BP is found to be mildly elevated at 165/65, otherwise, he is hemodynamically stable, afebrile, saturating anywhere from 94 to 100% on 4 L of oxygen per nasal cannula. The patient's PCP is Dr. Saleem Guillermo. - Related Data Allergies Allergy/AdvReac Type Severity Reaction Status Date / Time glipizide [From Glucotrol] Allergy Other Verified 07/02/20 05:59 ibuprofen Allergy Other Verified 07/02/20 05:59 metformin Allergy Other Verified 07/02/20 05:59 pioglitazone [From Actos] Allergy Other Verified 07/02/20 05:59 codeine AdvReac Nausea and Verified 07/02/20 05:59 Vomiting fish oil AdvReac Nausea and Verified 07/02/20 05:59 Vomiting Home Meds: Home Meds Nitroglycerin [Nitrostat] 0.4 mg SL ASDIRECTED PRN 03/05/14 [History] Acetaminophen [Acetaminophen Extra Strength] 1,000 mg PO BID PRN 10/15/14 [History] Budesonide [Pulmicort] 1 ampule INH BID 06/30/16 [History] Montelukast [Singulair] 10 mg PO BEDTIME 06/30/16 [History] Gabapentin [Neurontin] 100 mg PO BID 01/27/18 [History] Albuterol [Ventolin HFA] 2 puff INH QID PRN 09/30/18 [History] Calcium Carb/Magnesium Hydrox [Antacid Chewable Tablet] 1,000 mg PO DAILY PRN 10/01/18 [History] Arformoterol [Brovana] 1 inh INH BID 05/05/20 [History] Aspirin 81 mg PO DAILY 05/05/20 [History] Benzonatate [Tessalon Perle] 100 - 200 mg PO Q4HR PRN 05/05/20 [History] Carboxymethylcellulose Sodium [Refresh Liquigel 1%] 1 dose EYEBOTH QID 05/05/20 [History] Clopidogrel Bisulfate [Plavix] 75 mg PO DAILY 05/05/20 [History] Diphenhyd/Lidocaine/Nystatin [Magic Mouthwash] 30 ml PO QID 05/05/20 [History] Fluticasone Propionate [Flonase] 2 spray NASBOTH DAILY 05/05/20 [History] Furosemide [Lasix] 20 mg PO DAILY 05/05/20 [History] Incruse Ellipta 62.5mcg/Inh 1 puff INH BID 05/05/20 [History] Ipratropium [Atrovent HFA] 2 puff INH TID 05/05/20 [History] Levothyroxine [Synthroid] 50 mg PO DAILY 05/05/20 [History] Metoprolol Tartrate 50 mg PO BID 05/05/20 [History] Omeprazole 40 mg PO DAILY 05/05/20 [History] Ondansetron [Zofran] 4 mg PO TID PRN 05/05/20 [History] Promethazine HCl/Codeine [Prometh-Codein 6.25-10 mg/5 ml] 10 ml PO Q8HR PRN 05/05/20 [History] Ranolazine [Ranolazine ER] 500 mg PO BID 05/05/20 [History] Sodium Chloride/Aloe Vera [[place] Saline Nasal Gel [place]] 2 spray GISEL TID 05/05/20 [History] Tamsulosin [Flomax] 0.8 mg PO DAILY 05/05/20 [History] Triamcinolone Acetonide [Triamcinolone Acetonide 0.1% Crm] 1 dose TOP DAILY 05/05/20 [History] captopriL [Capoten] 50 mg PO BID 05/05/20 [History] dexAMETHasone [Dexamethasone] 4 mg PO DAILY 05/05/20 [History] diazePAM [Valium] 2 mg PO Q6HR PRN 05/05/20 [History] guaiFENesin [Mucinex] 600 mg PO BID 05/05/20 [History] Insulin Aspart [NovoLOG] 70 - 75 unit SQ TID 06/26/20 [History] Insulin Glargine,Hum.Rec.Anlog [Basaglar Kwikpen U-100] 42 unit SQ BID 06/26/20 [History] Isosorbide Mononitrate [Isosorbide Mononitrate ER] 120 mg PO DAILY 06/26/20 [History] Non-Formulary Medication [NF Drug] 1 inh INH BID 06/26/20 [History] Rosuvastatin Calcium 20 mg PO DAILY 06/26/20 [History] Cefdinir [Omnicef] 300 mg PO BID #14 cap 06/30/20 [Rx] valACYclovir [Valtrex] 1,000 mg PO TID #9 tablet 06/30/20 [Rx] LORazepam [Ativan] 1 tab PO Q6H PRN #20 tablet 07/02/20 [Rx] Past Medical History HEENT History: Reports: Impaired Vision (wears glasses) Cardiovascular History: Reports: High Cholesterol, Hypertension, MS Respiratory History: Reports: COPD, SOB, Other (See Below) Other Respiratory History: emphysema Gastrointestinal History: Reports: GERD Genitourinary History: Reports: BPH Musculoskeletal History: Reports: Back Pain, Chronic, Osteoarthritis Neurological History: Reports: Headaches, Chronic Other Neuro History: Stroke in 1971 Endocrine/Metabolic History: Reports: Diabetes, Type II Other Hematologic History: hypomagnesemia Oncologic (Cancer) History: Reports: Lung Dermatologic History: Reports: Other (See Below) Other Dermatologic History: seborrheic keratosis - Infectious Disease History Infectious Disease History: Reports: Influenza, Measles - Past Surgical History Cardiovascular Surgical History: Reports: Coronary Artery Stent GI Surgical History: Reports: Colonoscopy Social & Family History - Family History Family Medical History: Noncontributory - Tobacco Use Tobacco Use Status *Q: Unknown Ever Used Tobacco - Caffeine Use Caffeine Use: Reports: Coffee Other Caffeine Use: states he has one every once in awhile when he feels like it. Caffeine Use Comment: 1-2 - Living Situation & Occupation Living situation: Reports: Single Occupation: Retired ED ROS GENERAL - Review of Systems Review Of Systems: Comprehensive ROS is negative, except as noted in HPI. ED EXAM, GENERAL - Physical Exam Exam: See Below Exam Limited By: No Limitations General Appearance: Alert, WD/WN, No Apparent Distress Eye Exam: Left Eye: Other (subconjunctival hemorrhage), Bilateral Eye: EOMI Ears: Normal External Exam, Hearing Loss Nose: Normal Inspection Throat/Mouth: Normal Inspection, Normal Lips, Normal Voice, No Airway Compromise Head: Atraumatic, Normocephalic Neck: Normal Inspection, Full Range of Motion Respiratory/Chest: No Respiratory Distress, No Accessory Muscle Use, Decreased Breath Sounds. No: Crackles, Rhonchi, Wheezing, Stridor, Prolonged Expiration Cardiovascular: Normal Peripheral Pulses, Regular Rate, Rhythm, No Gallop, No JVD, No Murmur, No Rub Peripheral Pulses: 3+: Radial (L), Radial (R) GI/Abdominal: Normal Bowel Sounds, Soft, Non-Tender, No Organomegaly, No Distention, No Abnormal Bruit, No Mass Back Exam: Normal Inspection, Full Range of Motion, NT Extremities: Normal Range of Motion, Normal Capillary Refill Neurological: Alert, Oriented, Normal Cognition, No Motor/Sensory Deficits Psychiatric: Normal Affect Skin Exam: Warm, Dry, Intact, Normal Color, No Rash Course - Vital Signs Last Recorded V/S: Last Vital Signs Temp 36.6 C 07/02/20 05:53 Pulse 74 07/02/20 08:34 Resp 20 07/02/20 08:34 BP 164/77 H 07/02/20 08:34 Pulse Ox 97 07/02/20 08:34 - Orders/Labs/Meds Orders: Active Orders 24 hr Category Date Time Status Chest 1V Frontal [CR] Stat Exams 07/02/20 06:13 Taken Meds: Medications Discontinued Medications Generic Name Dose Route Start Last Admin Trade Name Diana PRN Reason Stop Dose Admin Lorazepam 1 mg 07/02/20 07:00 07/02/20 08:24 Ativan PO 07/02/20 07:01 1 mg ONETIME ONE Administration - Re-Assessments/Exams Free Text/Narrative Re-Assessment/Exam: 07/02/20 06:13 As above, the patient, who has a history of recently diagnosed metastatic lung carcinoma, was admitted for possible pneumonia on 06/26/2020 after experiencing shaking chills and decreased strength. He was treated with vancomycin and Rocephin, then discharged home on 06/30/2020 with a prescription for Omnicef, which he believes he is taking as prescribed. He now returns with increased shortness of breath, stating that he is having difficulty breathing, possible pains, generally feeling sick, and expressing concerns that he thinks he may be near . He states flat out that he needs to be admitted and will not be going home. While the patient may say that he is dyspneic, his oxygen saturation has been 100% while on his usual 4 L of oxygen per nasal cannula. His lung sounds are distant, but I do not hear any crackles or wheezes. Since his blood work was generally unremarkable during his recent admission, I do not see a need to repeat it now, however, I have ordered a repeat portable chest x- ray (the patient does not believe that he can reliably stand for a 2-view chest x-ray) to see if there are any change since his last. 07/02/20 06:54 Portable chest radiograph is read by [facility] as "Patchy opacities in the mid lung regions in both bases may represent multifocal pneumonia. ." Reviewing today's portable chest x-ray with that of 06/26/2020 and 05/05/2020, I see no significant difference. I suspected that the opacity that is seen is the patient's lung cancer. I suspect that much of the patient's symptoms are due to anxiety. While it is understandable that he would like to be admitted to the hospital, we have no beds available here, and I see no admittable diagnosis, even if we did have a bed available. I will treat the patient with some Ativan and discuss the option of establishing home health on Saturday. 07/02/20 07:36 Disposition of the patient has turned into a difficult situation. The patient had stated right up front that he wanted to be admitted, and did not want to be discharged home, because he feels like he can't breathe and that if he goes home, he will . I attempted to explain to him repeatedly that despite his symptoms, which I don't doubt, it does not appear that his breathing is any worse now than it was when he was discharged home on . He is moving air well, and is oxygenating very well while on his usual level of supplemental oxygen. I explained that I do not have a medical reason to admit him, especially since he is already on an antibiotic that he acknowledges he has been taking as prescribed, even if we had a bed available, which we do not. There is nothing that we would do for him in the hospital that he is not already doing at home. Despite this explanation, the patient was quite adamant that he could not go home. The patient already has home health, however, he said that they do not visit on the weekend. The patient does have some friends or family, however, he stated that they were busy this weekend, and he did not want to impose upon them. I offered to discuss the situation with the Hospitalist, to see if she would be willing to take care of the patient here in the ED or in the hospital, if a bed were to become available, with the stipulation that come Saturday, director social arrange for a [facility] bed that the patient would have to pay for out-of- pocket, since he would not qualify for a Medicare-paid bed. The patient refused, stating that he did not want to have to pay for a [facility] bed. 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 To address the patient's apparent anxiety, I have ordered 1 mg of oral Ativan, and I will discharge him home with a prescription for the same. Departure - Departure Time of Disposition: 07:57 Disposition: Home, Self-Care 01 Condition: Good Clinical Impression: Dyspnea, Anxiety, Metastatic lung carcinoma - Discharge Information *PRESCRIPTION DRUG MONITORING PROGRAM REVIEWED*: Not Applicable *COPY OF PRESCRIPTION DRUG MONITORING REPORT IN PATIENT FIOR: Not Applicable Prescriptions: LORazepam [Ativan] 1 tab PO Q6H PRN #20 tablet PRN Reason: Anxiety Instructions: Generalized Anxiety Disorder, Adult, Shortness of Breath, Adult, [id number] Referrals: Saleem Guillermo Jr, MD [Primary Care Provider] - Forms: ED Department Discharge Additional Instructions: You were seen in the emergency room for feeling short of breath and generally ill. Work-up in the ER included a chest x-ray, which showed no significant change from your previous chest x-rays. Your vital signs were found to be stable, you did not have a fever, and your oxygen saturation was up to 100% on your usual 4 L of oxygen by nasal cannula. Based on your history, physical exam, and ER chest x-ray, it appears that your symptoms are due to anxiety. You have been started on the anti-anxiety medicine lorazepam (Ativan), and a prescription for lorazepam has been provided to you. You may take 1 tablet of lorazepam every 6-8 hours, as needed for shortness of breath or feelings of anxiety. Continue to take your other medications as prescribed. As discussed at length, no reason to admit you to the hospital was found, and, as explained, no hospital beds are available at this time, anyway. If any other problems, please do not hesitate to return to the ER. Sepsis Event Note (ED) - Evaluation Sepsis Screening Result: No Definite Risk - Focused Exam Vital Signs: Vital Signs Temp Pulse Resp BP Pulse Ox 07/02/20 08:34 74 20 164/77 H 97 07/02/20 05:53 36.6 C 99 13 165/65 H 94 L - My Orders Last 24 Hours: My Active Orders 07/02/20 06:13 Chest 1V Frontal [CR] Stat - Assessment/Plan Last 24 Hours: My Active Orders 07/02/20 06:13 Chest 1V Frontal [CR] Stat
[2020-07-02] MEDS ORDERED: LORazepam 1 MG Tab PO ONE (07:00)
[2020-07-02] MEDS ORDERED: Sodium Chloride 0.9% 10 ML Syringe FLUSH PRN (10:10)
--- NOTE | 2020-07-02 17:03 | PCM.HP.2 ---
H&P History of Present Illness - General Date of Service: 07/02/20 Admit Problem/Dx: Admission Diagnosis/Problem Admission Diagnosis/Problem Hypoxia Source of Information: Patient, Provider, RN Notes Reviewed History Limitations: Reports: No Limitations - History of Present Illness Initial Comments - Free Text/Narative: 80 year old male who was discharged on , 06/30/2020. He had initially been evaluated for pneumonia. He was subsequently treated for AUTI, lower extremity cellulitis as well as shingles. The patient had wanted to go home to meet several agencies that were setting up equipment and services for his hospital discharge. He stated that he returns with similar symptoms reported on the previous admission. The ED work up was unremarkable, a DC from the ED was planned. However he was unable to climb into the truck, and the DC was cancelled. A social work consult will be made for SNF, he has refused it in the recent past. Onset of Symptoms: Reports: Today Symptom Onset Date: 07/02/20 Duration of Symptoms: Reports: Hour(s):, Getting Worse Location: Reports: Generalized Quality: Reports: Same as Previous Episode Improves with: Reports: None Worsens with: Reports: None Associated Symptoms: Reports: No Other Symptoms - Related Data Allergies/Adverse Reactions: Allergies Allergy/AdvReac Type Severity Reaction Status Date / Time glipizide [From Glucotrol] Allergy Other Verified 07/02/20 19:23 ibuprofen Allergy Other Verified 07/02/20 19:23 metformin Allergy Other Verified 07/02/20 19:23 pioglitazone [From Actos] Allergy Other Verified 07/02/20 19:23 codeine AdvReac Nausea and Verified 07/02/20 19:23 Vomiting fish oil AdvReac Nausea and Verified 07/02/20 19:23 Vomiting Home Medications: Home Meds Nitroglycerin [Nitrostat] 0.4 mg SL ASDIRECTED PRN 03/05/14 [History] Acetaminophen [Acetaminophen Extra Strength] 1,000 mg PO BID PRN 10/15/14 [History] Budesonide [Pulmicort] 1 ampule INH BID 06/30/16 [History] Montelukast [Singulair] 10 mg PO BEDTIME 06/30/16 [History] Gabapentin [Neurontin] 100 mg PO BID 01/27/18 [History] Albuterol [Ventolin HFA] 2 puff INH QID PRN 09/30/18 [History] Calcium Carb/Magnesium Hydrox [Antacid Chewable Tablet] 1,000 mg PO DAILY PRN 10/01/18 [History] Arformoterol [Brovana] 1 inh INH BID 05/05/20 [History] Aspirin 81 mg PO DAILY 05/05/20 [History] Benzonatate [Tessalon Perle] 100 - 200 mg PO Q4HR PRN 05/05/20 [History] Carboxymethylcellulose Sodium [Refresh Liquigel 1%] 1 dose EYEBOTH QID 05/05/20 [History] Clopidogrel Bisulfate [Plavix] 75 mg PO DAILY 05/05/20 [History] Diphenhyd/Lidocaine/Nystatin [Magic Mouthwash] 30 ml PO QID 05/05/20 [History] Fluticasone Propionate [Flonase] 2 spray NASBOTH DAILY 05/05/20 [History] Furosemide [Lasix] 20 mg PO DAILY 05/05/20 [History] Incruse Ellipta 62.5mcg/Inh 1 puff INH BID 05/05/20 [History] Ipratropium [Atrovent HFA] 2 puff INH TID 05/05/20 [History] Levothyroxine [Synthroid] 50 mg PO DAILY 05/05/20 [History] Metoprolol Tartrate 50 mg PO BID 05/05/20 [History] Omeprazole 40 mg PO DAILY 05/05/20 [History] Ondansetron [Zofran] 4 mg PO TID PRN 05/05/20 [History] Promethazine HCl/Codeine [Prometh-Codein 6.25-10 mg/5 ml] 10 ml PO Q8HR PRN 05/05/20 [History] Ranolazine [Ranolazine ER] 500 mg PO BID 05/05/20 [History] Sodium Chloride/Aloe Vera [[place] Saline Nasal Gel [employer]] 2 spray GISEL TID 05/05/20 [History] Tamsulosin [Flomax] 0.8 mg PO DAILY 05/05/20 [History] Triamcinolone Acetonide [Triamcinolone Acetonide 0.1% Crm] 1 dose TOP DAILY 05/05/20 [History] captopriL [Capoten] 50 mg PO BID 05/05/20 [History] dexAMETHasone [Dexamethasone] 4 mg PO DAILY 05/05/20 [History] diazePAM [Valium] 2 mg PO Q6HR PRN 05/05/20 [History] guaiFENesin [Mucinex] 600 mg PO BID 05/05/20 [History] Insulin Aspart [NovoLOG] 70 - 75 unit SQ TID 06/26/20 [History] Insulin Glargine,Hum.Rec.Anlog [Basaglar Kwikpen U-100] 42 unit SQ BID 06/26/20 [History] Isosorbide Mononitrate [Isosorbide Mononitrate ER] 120 mg PO DAILY 06/26/20 [History] Non-Formulary Medication [NF Drug] 1 inh INH BID 06/26/20 [History] Rosuvastatin Calcium 20 mg PO DAILY 06/26/20 [History] Cefdinir [Omnicef] 300 mg PO BID #14 cap 06/30/20 [Rx] valACYclovir [Valtrex] 1,000 mg PO TID #9 tablet 06/30/20 [Rx] LORazepam [Ativan] 1 tab PO Q6H PRN #20 tablet 07/02/20 [Rx] Past Medical History HEENT History: Reports: Impaired Vision (wears glasses) Other HEENT History: wears glasses Cardiovascular History: Reports: High Cholesterol, Hypertension, [place] Respiratory History: Reports: COPD, SOB, Other (See Below) Other Respiratory History: emphysema Gastrointestinal History: Reports: GERD Genitourinary History: Reports: BPH Musculoskeletal History: Reports: Back Pain, Chronic, Osteoarthritis Neurological History: Reports: Headaches, Chronic Other Neuro History: Stroke in 1971 Endocrine/Metabolic History: Reports: Diabetes, Type II Other Hematologic History: hypomagnesemia Oncologic (Cancer) History: Reports: Lung Dermatologic History: Reports: Other (See Below) Other Dermatologic History: seborrheic keratosis - Infectious Disease History Infectious Disease History: Reports: Influenza, Measles - Past Surgical History Cardiovascular Surgical History: Reports: Coronary Artery Stent GI Surgical History: Reports: Colonoscopy Social & Family History - Family History Family Medical History: Noncontributory - Tobacco Use Tobacco Use Status *Q: Unknown Ever Used Tobacco - Caffeine Use Caffeine Use: Reports: Coffee Other Caffeine Use: states he has one every once in awhile when he feels like it. Caffeine Use Comment: 1-2 - Living Situation & Occupation Living situation: Reports: Single Occupation: Retired H&P Review of Systems - Review of Systems: Review Of Systems: See Below General: Reports: Weakness HEENT: Reports: No Symptoms Pulmonary: Reports: No Symptoms Cardiovascular: Reports: No Symptoms Gastrointestinal: Reports: No Symptoms Genitourinary: Reports: No Symptoms Skin: Reports: No Symptoms Psychiatric: Reports: No Symptoms Neurological: Reports: No Symptoms Hematologic/Lymphatic: Reports: No Symptoms Immunologic: Reports: No Symptoms Exam - Exam Exam: See Below - Vital Signs Vital Signs: Last Vital Signs Temp 36.6 C 07/02/20 05:53 Pulse 104 H 07/02/20 10:48 Resp 16 07/02/20 10:48 BP 156/75 H 07/02/20 10:48 Pulse Ox 95 07/02/20 10:48 Weight: 106.141 kg - Exam Quality Assessment: Supplemental Oxygen General: Alert, Oriented, Cooperative HEENT: EOMI, Normal Nasal Septum, Pupils Equal, Pupils Reactive, PERRLA Neck: Trachea Midline Lungs: Normal Respiratory Effort, Rhonchi Cardiovascular: Regular Rate, Regular Rhythm GI/Abdominal Exam: Normal Bowel Sounds, Soft, Non-Tender, No Distention (Male) Exam: Deferred Rectal (Males) Exam: Deferred Back Exam: Normal Inspection Extremities: Normal Inspection, Non-Tender, Normal Capillary Refill Skin: Warm Neurological: Cranial Nerves Intact Neuro Extensive - Mental Status: Alert, Oriented x3 Neuro Extensive - Motor, Sensory, Reflexes: CN II-XII Intact Psychiatric: Alert - Patient Data Lab Results Last 24 hrs: Laboratory Results - last 24 hr 07/02/20 07/02/20 07/02/20 Range/Units 10:20 10:20 10:20 WBC 10.74 H (4.23-9.07) K/mm3 RBC 3.14 L (4.63-6.08) M/mm3 Hgb 9.7 L (13.7-17.5) gm/dl Hct 31.5 L (40.1-51.0) % MCV 100.3 H (79.0-92.2) fl MCH 30.9 (25.7-32.2) pg MCHC 30.8 L (32.2-35.5) g/dl RDW Std Deviation 56.3 H (35.1-43.9) fL Plt Count 137 L (163-337) K/mm3 MPV 9.3 L (9.4-12.3) fl Neut % (Auto) 84.1 H (34.0-67.9) % Lymph % (Auto) 4.5 L (21.8-53.1) % Wilson % (Auto) 6.1 (5.3-12.2) % Eos % (Auto) 0.4 L (0.8-7.0) Baso % (Auto) 0.2 (0.1-1.2) % Neut # (Auto) 9.05 H (1.78-5.38) K/mm3 Lymph # (Auto) 0.48 L (1.32-3.57) K/mm3 Wilson # (Auto) 0.65 (0.30-0.82) K/mm3 Eos # (Auto) 0.04 (0.04-0.54) K/mm3 Baso # (Auto) 0.02 (0.01-0.08) K/mm3 Manual Slide Review Abnormal smear Puncture Site ABG pH (7.35-7.45) ABG pCO2 (35.0-45.0) mmHg ABG pO2 (80.0-100.0) mmHg ABG HCO3 (22.0-26.0) meq/L ABG O2 Saturation (96.0-97.0) % ABG Base Excess (-2-2.0) O2 Delivery Device Oxygen Flow Rate FiO2 (21.00-100.00) % Sodium 136 (136-145) mEq/L Potassium 4.4 (3.5-5.1) mEq/L Chloride 100 (98-107) mEq/L Carbon Dioxide 33 H (21-32) mEq/L Anion Gap 7.4 (5-15) BUN 39 H (7-18) mg/dL Creatinine 1.5 H (0.7-1.3) mg/dL Est Cr Clr Drug Dosing 44.39 mL/min Estimated GFR (MDRD) 45 (>60) mL/min BUN/Creatinine Ratio 26.0 H (14-18) Glucose 244 H (83-115) mg/dL Calcium 8.9 (8.5-10.1) mg/dL Total Bilirubin 1.2 H (0.2-1.0) mg/dL AST 19 (15-37) U/L ALT 38 (16-63) U/L Alkaline Phosphatase 63 (46-116) U/L Troponin I 0.053 (0.00-0.056) ng/mL C-Reactive Protein 10.6 H* (<1.0) mg/dL Total Protein 6.4 (6.4-8.2) g/dl Albumin 2.6 L (3.4-5.0) g/dl Globulin 3.8 gm/dL Albumin/Globulin Ratio 0.7 L (1-2) SARS-CoV-2 RNA (TAYLOR) (NEGATIVE) 07/02/20 07/02/20 Range/Units 10:45 13:35 WBC (4.23-9.07) K/mm3 RBC (4.63-6.08) M/mm3 Hgb (13.7-17.5) gm/dl Hct (40.1-51.0) % MCV (79.0-92.2) fl MCH (25.7-32.2) pg MCHC (32.2-35.5) g/dl RDW Std Deviation (35.1-43.9) fL Plt Count (163-337) K/mm3 MPV (9.4-12.3) fl Neut % (Auto) (34.0-67.9) % Lymph % (Auto) (21.8-53.1) % Wilson % (Auto) (5.3-12.2) % Eos % (Auto) (0.8-7.0) Baso % (Auto) (0.1-1.2) % Neut # (Auto) (1.78-5.38) K/mm3 Lymph # (Auto) (1.32-3.57) K/mm3 Wilson # (Auto) (0.30-0.82) K/mm3 Eos # (Auto) (0.04-0.54) K/mm3 Baso # (Auto) (0.01-0.08) K/mm3 Manual Slide Review Puncture Site Rt radial ABG pH 7.45 (7.35-7.45) ABG pCO2 48.7 H (35.0-45.0) mmHg ABG pO2 56.0 L (80.0-100.0) mmHg ABG HCO3 33.4 H (22.0-26.0) meq/L ABG O2 Saturation 84.4 L (96.0-97.0) % ABG Base Excess 8.8 H (-2-2.0) O2 Delivery Device Nasal cannula Oxygen Flow Rate 1.5 FiO2 28.00 (21.00-100.00) % Sodium (136-145) mEq/L Potassium (3.5-5.1) mEq/L Chloride (98-107) mEq/L Carbon Dioxide (21-32) mEq/L Anion Gap (5-15) BUN (7-18) mg/dL Creatinine (0.7-1.3) mg/dL Est Cr Clr Drug Dosing mL/min Estimated GFR (MDRD) (>60) mL/min BUN/Creatinine Ratio (14-18) Glucose (83-115) mg/dL Calcium (8.5-10.1) mg/dL Total Bilirubin (0.2-1.0) mg/dL AST (15-37) U/L ALT (16-63) U/L Alkaline Phosphatase (46-116) U/L Troponin I (0.00-0.056) ng/mL C-Reactive Protein (<1.0) mg/dL Total Protein (6.4-8.2) g/dl Albumin (3.4-5.0) g/dl Globulin gm/dL Albumin/Globulin Ratio (1-2) SARS-CoV-2 RNA (TAYLOR) Negative (NEGATIVE) Result Diagrams: 07/02/20 10:20 07/02/20 10:20 Sepsis Event Note - Evaluation Sepsis Screening Result: No Definite Risk - Focused Exam Vital Signs: Vital Signs Temp Pulse Resp BP Pulse Ox 07/02/20 10:48 104 H 16 156/75 H 95 07/02/20 08:34 74 20 164/77 H 97 07/02/20 05:53 36.6 C 99 13 165/65 H 94 L - Problem List (1) Anxiety SNOMED Code(s): 14404037 ICD Code: F41.9 - ANXIETY DISORDER, UNSPECIFIED Status: Acute Current Visit: Yes (2) Dyspnea SNOMED Code(s): 075626258 ICD Code: R06.00 - DYSPNEA, UNSPECIFIED Status: Chronic Current Visit: Yes (3) Metastatic lung carcinoma SNOMED Code(s): 35764908, 15692585, 557382684 ICD Code: C78.00 - SECONDARY MALIGNANT NEOPLASM OF UNSPECIFIED LUNG Status: Chronic Current Visit: Yes Qualifiers: Laterality: unspecified laterality Qualified Code(s): C78.00 - Secondary malignant neoplasm of unspecified lung (4) Acute herpes zoster neuropathy SNOMED Code(s): 796284272 ICD Code: B02.23 - POSTHERPETIC POLYNEUROPATHY Status: Acute Priority: Medium Current Visit: No (5) Anemia, macrocytic SNOMED Code(s): 69002039 ICD Code: D53.9 - NUTRITIONAL ANEMIA, UNSPECIFIED Status: Chronic Priority: Medium Current Visit: No Problem List Initiated/Reviewed/Updated: Yes Orders Last 24hrs: Active Orders 24 hr Category Date Time Status Admission Status [Patient Status] [ADT] Routine ADT 07/02/20 14:59 Active EKG 12 Lead [EKG Documentation Completion] [RC] STAT Care 07/02/20 10:10 Active Peripheral IV Care [RC] . DIRECTED Care 07/02/20 10:10 Active Chest 1V Frontal [CR] Stat Exams 07/02/20 06:13 Taken Sodium Chloride 0.9% [Saline Flush] Med 07/02/20 10:10 Active 10 ml FLUSH ASDIRECTED PRN Peripheral IV Insertion Adult [OM.PC] Stat Oth 07/02/20 10:10 Ordered Medication Orders Sodium Chloride (Saline Flush) 10 ml FLUSH ASDIRECTED PRN PRN Reason: Keep Vein Open Last Admin: 07/02/20 10:21 Dose: 10 ml Documented by: KAREN Assessment/Plan Comment:: Impression: S/P treatment for presumptive PNA S/P LE cellulitis (Klebsiella) S/P AUTI (Klebsiella) Treated for above with Vancomycin/Rocephin S/P Diabetic wound care S/P Herpes Zoster neuropathy Treatment for above with Valtrex Generalize weakness Hypoxia, mild (ABG) Chronic Lung CA with brain mets DHF, 2D echo 09/2018 LVEF 55-60%/grade I diastolic dysfunction CAD/PCI; NSTEMI COPD CKD stage III Migraine GREEN GERD BPH Hypothyroid Obesity Plan: O2 therapy, keep saturation > 90% Omincef 300 mg every 12 hours IVF as needed ADA diet with sliding scale; heart healthy. Social work consult re: SNF Respiratory panel RT with O2 therapy as needed. Resume PT/OT pre DC on 06/30/2020 DVT prophylaxis
[2020-07-03] MEDS ORDERED: Nitroglycerin 0.4 MG Tab.SL SL PRN (12:46)
[2020-07-03] MEDS ORDERED: Diazepam 2 MG Tab PO PRN (12:46)
[2020-07-03] MEDS ORDERED: Benzonatate 100 MG Cap PO PRN (12:46)
[2020-07-03] MEDS ORDERED: Albuterol 6.7 GM Inhaler INH PRN (12:46)
[2020-07-03] MEDS ORDERED: Codeine/Promethazine 10-6.25 MG/5 ML Syrup 5 ML UD Cup PO PRN (12:46)
[2020-07-03] MEDS ORDERED: Ondansetron 4 MG Tab.DIS PO PRN (12:46)
[2020-07-03] MEDS ORDERED: Calcium Carbonate 500 MG Tab.Chew PO PRN (12:46)
[2020-07-03] MEDS ORDERED: Enoxaparin 30 MG/0.3 ML Syringe SUBCUT SCH (13:00)
--- NOTE | 2020-07-03 13:47 | PCM.PN ---
- General Info Date of Service: 07/03/20 Subjective Update: Patient is pretending to be a sleep. Prior to entering the room he was talking to his nurse. Functional Status: Reports: Urinating, Other (foleyb catheter) - Review of Systems General: Reports: Weakness HEENT: Reports: No Symptoms Pulmonary: Reports: No Symptoms Cardiovascular: Reports: No Symptoms Gastrointestinal: Reports: No Symptoms Genitourinary: Reports: No Symptoms Musculoskeletal: Reports: No Symptoms Skin: Reports: No Symptoms Neurological: Reports: No Symptoms Psychiatric: Reports: No Symptoms - Patient Data Vitals - Most Recent: Last Vital Signs Temp 35.8 C L 07/03/20 11:57 Pulse 85 07/03/20 11:57 Resp 14 07/03/20 11:57 BP 160/60 H 07/03/20 12:45 Pulse Ox 95 07/03/20 11:57 Weight - Most Recent: 106.141 kg I&O - Last 24 Hours: Intake & Output 07/02/20 07/03/20 07/03/20 22:59 06:59 14:59 Intake Total 0 Output Total 1400 Balance -1400 Lab Results Last 24 Hours: Laboratory Results - last 24 hr 07/02/20 07/03/20 Range/Units 22:15 06:53 POC Glucose 244 H 267 H (83-110) mg/dL Med Orders - Current: Current Medications Albuterol (Proventil Hfa) 0 gm INH QID PRN PRN Reason: Shortness of Breath Artificial Tears (Refresh Liquigel 1%) 0 ml EYEBOTH QID [facility] Aspirin (Halfprin) 81 mg PO DAILY [facility] Benzonatate (Tessalon Perles) 200 mg PO Q4HR PRN PRN Reason: Cough Budesonide (Pulmicort) 0.25 mg INH BIDRT [facility] Cefdinir (Omnicef) 300 mg PO BID [facility] Clopidogrel Bisulfate (Plavix) 75 mg PO DAILY [facility] Dexamethasone (Dexamethasone) 4 mg PO DAILY [facility] Diazepam (Valium) 2 mg PO Q6HR PRN PRN Reason: Anxiety Diphenhydr/Magaldrate/Simeth/Lidoca (First-Mouthwash Blm Susp) 30 ml PO QID [facility] Enoxaparin Sodium (Lovenox) 30 mg SUBCUT Q24H [facility] Fluticasone Propionate (Flonase) 0 gm NASBOTH DAILY [facility] Furosemide (Lasix) 20 mg PO DAILY [facility] Gabapentin (Neurontin) 100 mg PO BID [facility] Glycopyrrolate (Seebri Neohaler) 0 mcg IH BID [facility] Guaifenesin (Mucinex) 600 mg PO BID [facility] Isosorbide Mononitrate (Imdur) 120 mg PO DAILY [facility] Levothyroxine Sodium (Synthroid) 50 mcg PO DAILY [facility] Metoprolol Tartrate (Lopressor) 50 mg PO BID [facility] Montelukast Sodium (Singulair) 10 mg PO BEDTIME [facility] Nitroglycerin (Nitrostat) 0.4 mg SL ASDIRECTED PRN PRN Reason: Chest Pain Non-Formulary Medication (Arformoterol) 1 inh INH BID [facility] Non-Formulary Medication (Calcium Carb/Magnesium Hydrox [Antacid Chewable Tablet]) 1,000 mg PO DAILY PRN PRN Reason: Heartburn Non-Formulary Medication (Ipratropium) 2 puff INH TID [facility] Ondansetron HCl (Zofran Odt) 4 mg PO TID PRN PRN Reason: Nausea Pantoprazole Sodium (Protonix) 40 mg PO DAILY [facility] Promethazine HCl/Codeine (Phenergan With Codeine) 10 ml PO Q8HR PRN PRN Reason: Cough Ranolazine (Ranexa) 500 mg PO BID [facility] Rosuvastatin Calcium (Crestor) 20 mg PO DAILY [facility] Sodium Chloride (Saline Flush) 10 ml FLUSH ASDIRECTED PRN PRN Reason: Keep Vein Open Last Admin: 07/02/20 10:21 Dose: 10 ml Documented by: Tamsulosin HCl (Flomax) 0.8 mg PO DAILY [facility] Triamcinolone Acetonide (Triamcinolone Acetonide 0.1% Crm) gm TOP DAILY [facility] Valacyclovir HCl (Valtrex) 1,000 mg PO TID [facility] Discontinued Medications Budesonide (Pulmicort) 0.25 mg INH BID [facility] Lorazepam (Ativan) 1 mg PO ONETIME ONE Stop: 07/02/20 07:01 Last Admin: 07/02/20 08:24 Dose: 1 mg Documented by: - Exam Quality Assessment: Supplemental Oxygen General: No Acute Distress HEENT: Pupils Equal, Pupils Reactive, EOMI Neck: Trachea Midline, No JVD Lungs: Normal Respiratory Effort, Decreased Breath Sounds Cardiovascular: Regular Rate, Regular Rhythm GI/Abdominal Exam: Normal Bowel Sounds, Soft, Non-Tender (Male) Exam: Deferred Back Exam: Normal Inspection Extremities: Normal Inspection, Non-Tender, Normal Capillary Refill Skin: Warm Neurological: No New Focal Deficit Psy/Mental Status: Alert, Depressed Sepsis Event Note - Evaluation Sepsis Screening Result: No Definite Risk - Focused Exam Vital Signs: Vital Signs Temp Pulse Resp BP Pulse Ox 07/03/20 12:45 160/60 H 07/03/20 11:57 35.8 C L 85 14 169/58 H 95 07/03/20 09:35 103 H 97 07/03/20 07:41 35.8 C L 97 16 147/68 H 95 - Problem List & Annotations (1) Anxiety SNOMED Code(s): 61835504 Code(s): F41.9 - ANXIETY DISORDER, UNSPECIFIED Status: Acute Current Visit: Yes (2) Dyspnea SNOMED Code(s): 212937307 Code(s): R06.00 - DYSPNEA, UNSPECIFIED Status: Chronic Current Visit: Yes (3) Metastatic lung carcinoma SNOMED Code(s): 82956072, 19798843, 286533681 Code(s): C78.00 - SECONDARY MALIGNANT NEOPLASM OF UNSPECIFIED LUNG Status: Chronic Current Visit: Yes Qualifiers: Laterality: unspecified laterality Qualified Code(s): C78.00 - Secondary malignant neoplasm of unspecified lung (4) Acute herpes zoster neuropathy SNOMED Code(s): 759839103 Code(s): B02.23 - POSTHERPETIC POLYNEUROPATHY Status: Acute Priority: Medium Current Visit: No (5) Anemia, macrocytic SNOMED Code(s): 08187521 Code(s): D53.9 - NUTRITIONAL ANEMIA, UNSPECIFIED Status: Chronic Priority: Medium Current Visit: No - Problem List Review Problem List Initiated/Reviewed/Updated: Yes - My Orders Last 24 Hours: My Active Orders 07/02/20 19:58 Code Status [Resuscitation Status] Routine 07/03/20 12:46 Benzonatate [Tessalon Perles] 200 mg PO Q4HR PRN Nitroglycerin [Nitrostat] 0.4 mg SL ASDIRECTED PRN diazePAM [Valium] 2 mg PO Q6HR PRN 07/03/20 12:46 Albuterol 2 puff INH QID PRN Calcium Carb/Magnesium Hydrox [Antacid Chewable Tablet] 1,000 mg PO DAILY PRN Ondansetron 4 mg PO TID PRN Promethazine HCl/Codeine [Prometh-Codein 6.25-10 mg/5 ml] 10 ml PO Q8HR PRN 07/03/20 12:51 RT Aerosol Therapy [RC] ASDIRECTED 07/03/20 12:54 RESPIRATORY PANEL Routine Isolation [COMM] Routine 07/03/20 12:56 Consult to Case Management/Cyber Security Instructor [CONS] Routine 07/03/20 13:00 Carboxymethylcellulose Sodium [Refresh Liquigel 1%] 1 dose EYEBOTH QID Cefdinir [Omnicef] 300 mg PO BID Clopidogrel [Plavix] 75 mg PO DAILY Diphenhyd/Lidocaine/Nystatin 30 ml PO QID Enoxaparin [Lovenox] 30 mg SUBCUT Q24H Tamsulosin [Flomax] 0.8 mg PO DAILY dexAMETHasone 4 mg PO DAILY guaiFENesin [Mucinex] 600 mg PO BID 07/03/20 15:00 Ipratropium 2 puff INH TID valACYclovir [Valtrex] 1,000 mg PO TID 07/03/20 18:00 BASIC METABOLIC PANEL,BMP [CHEM] Routine CBC WITH AUTO DIFF [HEME] Routine MAGNESIUM [CHEM] Routine 07/03/20 21:00 Arformoterol 1 inh INH BID Budesonide [Pulmicort] 0.25 mg INH BIDRT Gabapentin [Neurontin] 100 mg PO BID Incruse Ellipta 62.5mcg/Inh 1 puff INH BID Metoprolol Tartrate [Lopressor] 50 mg PO BID Montelukast [Singulair] 10 mg PO BEDTIME Ranolazine [Ranexa] 500 mg PO BID 07/04/20 09:00 Consult to Physical Therapy [PT Evaluation and Treatment] [CONS] Routine Aspirin 81 mg PO DAILY Fluticasone Propionate [Flonase] 2 spray NASBOTH DAILY Furosemide [Lasix] 20 mg PO DAILY Isosorbide Mononitrate [Imdur] 120 mg PO DAILY Levothyroxine [Synthroid] 50,000 mcg PO DAILY Omeprazole [Omeprazole] 40 mg PO DAILY Rosuvastatin Calcium [Rosuvastatin Calcium] 20 mg PO DAILY Triamcinolone Acetonide [Triamcinolone Acetonide 0.1% Crm] 1 dose TOP DAILY - Plan Plan:: Impression: S/P treatment for presumptive PNA S/P LE cellulitis (Klebsiella) S/P AUTI (Klebsiella) Treated for above with Vancomycin/Rocephin S/P Diabetic wound care S/P Herpes Zoster neuropathy Treatment for above with Valtrex Generalize weakness Hypoxia, mild (ABG) Query depression Chronic Lung CA with brain mets DHF, 2D echo 09/2018 LVEF 55-60%/grade I diastolic dysfunction CAD/PCI; NSTEMI COPD CKD stage III Migraine GREEN GERD BPH Hypothyroid Obesity Plan: Respiratory panel; isolation O2 therapy, keep saturation > 90% Omincef 300 mg every 12 hours IVF as needed ADA diet with sliding scale; heart healthy. Social work consult re: SNF Respiratory panel RT with O2 therapy as needed. Resume PT/OT pre DC on 06/30/2020 DVT prophylaxis NEEDS SNF PLACEMENT
[2020-07-03] MEDS: Tamsulosin 0.4 MG Cap.ER PO SCH (14:02)
[2020-07-03] MEDS: Clopidogrel 75 MG Tab PO SCH (14:02)
[2020-07-03] MEDS: Dexamethasone 4 MG Tab PO SCH (14:03)
[2020-07-03] MEDS: Cefdinir 300 MG Cap PO SCH ×2 (14:03→21:57)
[2020-07-03] MEDS: Carboxymethylcellulose Sodium 1% Ophth Gel 15 ML Bottle EYEBOTH SCH ×3 (14:03→22:09)
[2020-07-03] MEDS: guaiFENesin 600 MG Tab.ER PO SCH ×2 (14:03→21:58)
[2020-07-03] MEDS: valACYclovir 1,000 MG Tab PO SCH ×2 (14:03→21:58)
[2020-07-03] MEDS: Diphenhydramine/Lidocaine/MagAl/Simethicone 119 ML Bottle PO SCH ×3 (14:04→22:15)
[2020-07-03] MEDS ORDERED: IPRATROPIUM INH SCH (15:00)
[2020-07-03] MEDS: Budesonide 0.25 MG/2 ML Neb Susp INH SCH (20:30)
[2020-07-03] MEDS: Glycopyrrolate 15.6 MCG Cap.W.Dev Kit of 6 IH SCH (20:31)
[2020-07-03] MEDS ORDERED: Budesonide 0.25 MG/2 ML Neb Susp INH SCH (21:00)
[2020-07-03] MEDS ORDERED: Glycopyrrolate 15.6 MCG Cap.W.Dev Kit of 6 IH SCH (21:00)
[2020-07-03] MEDS: Gabapentin 100 MG Cap PO SCH (21:57)
[2020-07-03] MEDS: Montelukast 10 MG Tab PO SCH (21:58)
[2020-07-03] MEDS: Metoprolol Tartrate 50 MG Tab PO SCH (21:58)
[2020-07-04] MEDS: Budesonide 0.25 MG/2 ML Neb Susp INH SCH ×2 (06:30→20:03)
[2020-07-04] MEDS: Glycopyrrolate 15.6 MCG Cap.W.Dev Kit of 6 IH SCH (06:33)
[2020-07-04] MEDS ORDERED: Triamcinolone Acetonide 0.1% Crm 15 GM Tube TOP SCH (09:00)
[2020-07-04] MEDS ORDERED: Tiotropium Bromide 4 GM Inhalation Spray (2.5mcg/1 dose; 10 doses) INH SCH (09:00)
[2020-07-04] MEDS: Rosuvastatin 10 MG Tab PO SCH (10:06)
[2020-07-04] MEDS: Dexamethasone 4 MG Tab PO SCH (10:07)
[2020-07-04] MEDS: Diphenhydramine/Lidocaine/MagAl/Simethicone 119 ML Bottle PO SCH ×4 (10:08→22:51)
[2020-07-04] MEDS: Tamsulosin 0.4 MG Cap.ER PO SCH (10:09)
[2020-07-04] MEDS: Aspirin 81 MG Tab.EC PO SCH (10:10)
[2020-07-04] MEDS: Isosorbide Mononitrate 60 MG Tab.ER PO SCH (10:11)
[2020-07-04] MEDS: Metoprolol Tartrate 50 MG Tab PO SCH ×2 (10:12→22:55)
[2020-07-04] MEDS: Furosemide 20 MG Tab PO SCH (10:12)
[2020-07-04] MEDS: guaiFENesin 600 MG Tab.ER PO SCH ×2 (10:13→22:55)
[2020-07-04] MEDS: Gabapentin 100 MG Cap PO SCH ×2 (10:14→22:55)
[2020-07-04] MEDS: Cefdinir 300 MG Cap PO SCH ×2 (10:14→22:55)
[2020-07-04] MEDS: Clopidogrel 75 MG Tab PO SCH (10:14)
[2020-07-04] MEDS: Pantoprazole 40 MG Tab.CR PO SCH (10:15)
[2020-07-04] MEDS: Carboxymethylcellulose Sodium 1% Ophth Gel 15 ML Bottle EYEBOTH SCH ×4 (10:15→22:55)
[2020-07-04] MEDS: valACYclovir 1,000 MG Tab PO SCH (10:16)
[2020-07-04] MEDS: Levothyroxine 50 MCG Tab PO SCH (10:16)
[2020-07-04] MEDS: Arformoterol 15 MCG/2 ML Neb Soln INH SCH ×2 (10:22→20:03)
--- NOTE | 2020-07-04 10:30 | CR ---
PROCEDURE INFORMATION: Exam: XR Chest, 1 View Exam date and time: 07/02/2020 6:07 AM Age: 80 years old Clinical indication: Shortness of breath; Patient HX: PT SOB; Additional info: Please see prior report scanned into exam TECHNIQUE: Imaging protocol: XR of the chest Views: 1 view. COMPARISON: OT Chest 1V Frontal 06/26/2020 6:49 AM FINDINGS: Lungs: Patchy opacities in the mid lung regions and both bases may represent multifocal pneumonia. . Pleural space: Unremarkable. No pleural effusion. No pneumothorax. Heart/Mediastinum: Unremarkable. No cardiomegaly. Vasculature: MediPort terminates in the superior vena cava Bones/joints: Unremarkable. IMPRESSION: Patchy opacities in the mid lung regions and both bases may represent multifocal pneumonia. . Thank you for allowing us to participate in the care of your patient. Dictated and Authenticated by: Rafiq Jvaier MD 07/02/2020 7:49 AM Central Time ([place] & [place]) LISA
--- NOTE | 2020-07-04 14:11 | PCM.PN ---
- General Info Date of Service: 07/04/20 Functional Status: Reports: Tolerating Diet, Urinating - Review of Systems General: Reports: Weakness HEENT: Reports: No Symptoms Pulmonary: Reports: No Symptoms Cardiovascular: Reports: No Symptoms Gastrointestinal: Reports: No Symptoms Genitourinary: Reports: No Symptoms Musculoskeletal: Reports: No Symptoms Skin: Reports: No Symptoms Neurological: Reports: No Symptoms Psychiatric: Reports: No Symptoms - Patient Data Vitals - Most Recent: Last Vital Signs Temp 36.6 C 07/04/20 09:00 Pulse 68 07/04/20 10:12 Resp 20 07/04/20 09:00 BP 122/68 07/04/20 10:12 Pulse Ox 100 07/04/20 09:00 Weight - Most Recent: 105.052 kg I&O - Last 24 Hours: Intake & Output 07/03/20 07/04/20 07/04/20 22:59 06:59 14:59 Intake Total 900 300 480 Output Total 650 925 Balance 250 -625 480 Lab Results Last 24 Hours: Laboratory Results - last 24 hr 07/03/20 07/03/20 07/03/20 Range/Units 18:55 18:55 20:07 WBC 9.07 (4.23-9.07) K/mm3 RBC 2.68 L (4.63-6.08) M/mm3 Hgb 8.3 L (13.7-17.5) gm/dl Hct 27.1 L (40.1-51.0) % MCV 101.1 H (79.0-92.2) fl MCH 31.0 (25.7-32.2) pg MCHC 30.6 L (32.2-35.5) g/dl RDW Std Deviation 54.5 H (35.1-43.9) fL Plt Count 115 L (163-337) K/mm3 MPV 9.9 (9.4-12.3) fl Neut % (Auto) 92.7 H (34.0-67.9) % Lymph % (Auto) 2.6 L (21.8-53.1) % [place] % (Auto) 2.9 L (5.3-12.2) % Eos % (Auto) 0 L (0.8-7.0) Baso % (Auto) 0.1 (0.1-1.2) % Neut # (Auto) 8.41 H (1.78-5.38) K/mm3 Lymph # (Auto) 0.24 L (1.32-3.57) K/mm3 [place] # (Auto) 0.26 L (0.30-0.82) K/mm3 Eos # (Auto) 0.00 L (0.04-0.54) K/mm3 Baso # (Auto) 0.01 (0.01-0.08) K/mm3 Manual Slide Review Abnormal smear Sodium 137 (136-145) mEq/L Potassium 5.0 (3.5-5.1) mEq/L Chloride 101 (98-107) mEq/L Carbon Dioxide 33 H (21-32) mEq/L Anion Gap 8.0 (5-15) BUN 28 H (7-18) mg/dL Creatinine 1.2 (0.7-1.3) mg/dL Est Cr Clr Drug Dosing 55.49 mL/min Estimated GFR (MDRD) 58 (>60) mL/min BUN/Creatinine Ratio 23.3 H (14-18) Glucose 387 H (83-115) mg/dL POC Glucose 320 H (83-110) mg/dL Calcium 8.2 L (8.5-10.1) mg/dL Magnesium 2.1 (1.8-2.4) mg/dl 07/03/20 07/04/20 07/04/20 Range/Units 20:19 06:13 10:40 WBC 7.72 (4.23-9.07) K/mm3 RBC 2.81 L (4.63-6.08) M/mm3 Hgb 8.7 L (13.7-17.5) gm/dl Hct 28.0 L (40.1-51.0) % MCV 99.6 H (79.0-92.2) fl MCH 31.0 (25.7-32.2) pg MCHC 31.1 L (32.2-35.5) g/dl RDW Std Deviation 51.2 H (35.1-43.9) fL Plt Count 131 L (163-337) K/mm3 MPV 10.0 (9.4-12.3) fl Neut % (Auto) 91.2 H (34.0-67.9) % Lymph % (Auto) 3.9 L (21.8-53.1) % [place] % (Auto) 3.0 L (5.3-12.2) % Eos % (Auto) 0 L (0.8-7.0) Baso % (Auto) 0.0 L (0.1-1.2) % Neut # (Auto) 7.04 H (1.78-5.38) K/mm3 Lymph # (Auto) 0.30 L (1.32-3.57) K/mm3 [place] # (Auto) 0.23 L (0.30-0.82) K/mm3 Eos # (Auto) 0.00 L (0.04-0.54) K/mm3 Baso # (Auto) 0.00 L (0.01-0.08) K/mm3 Manual Slide Review Abnormal smear Sodium (136-145) mEq/L Potassium (3.5-5.1) mEq/L Chloride (98-107) mEq/L Carbon Dioxide (21-32) mEq/L Anion Gap (5-15) BUN (7-18) mg/dL Creatinine (0.7-1.3) mg/dL Est Cr Clr Drug Dosing mL/min Estimated GFR (MDRD) (>60) mL/min BUN/Creatinine Ratio (14-18) Glucose (83-115) mg/dL POC Glucose 358 H 287 H (83-110) mg/dL Calcium (8.5-10.1) mg/dL Magnesium (1.8-2.4) mg/dl 07/04/20 07/04/20 Range/Units 10:40 11:55 WBC (4.23-9.07) K/mm3 RBC (4.63-6.08) M/mm3 Hgb (13.7-17.5) gm/dl Hct (40.1-51.0) % MCV (79.0-92.2) fl MCH (25.7-32.2) pg MCHC (32.2-35.5) g/dl RDW Std Deviation (35.1-43.9) fL Plt Count (163-337) K/mm3 MPV (9.4-12.3) fl Neut % (Auto) (34.0-67.9) % Lymph % (Auto) (21.8-53.1) % [place] % (Auto) (5.3-12.2) % Eos % (Auto) (0.8-7.0) Baso % (Auto) (0.1-1.2) % Neut # (Auto) (1.78-5.38) K/mm3 Lymph # (Auto) (1.32-3.57) K/mm3 [place] # (Auto) (0.30-0.82) K/mm3 Eos # (Auto) (0.04-0.54) K/mm3 Baso # (Auto) (0.01-0.08) K/mm3 Manual Slide Review Sodium 136 (136-145) mEq/L Potassium 4.9 (3.5-5.1) mEq/L Chloride 99 (98-107) mEq/L Carbon Dioxide 32 (21-32) mEq/L Anion Gap 9.9 (5-15) BUN 30 H (7-18) mg/dL Creatinine 1.2 (0.7-1.3) mg/dL Est Cr Clr Drug Dosing 55.49 mL/min Estimated GFR (MDRD) 58 (>60) mL/min BUN/Creatinine Ratio 25.0 H (14-18) Glucose 358 H 405 H (83-115) mg/dL POC Glucose (83-110) mg/dL Calcium 8.6 (8.5-10.1) mg/dL Magnesium 2.4 (1.8-2.4) mg/dl Med Orders - Current: Current Medications Albuterol (Proventil Hfa) 0 gm INH QID PRN PRN Reason: Shortness of Breath Arformoterol Tartrate (Brovana) 15 mcg INH BIDRT [facility] Last Admin: 07/04/20 10:22 Dose: Not Given Documented by: Artificial Tears (Refresh Liquigel 1%) 0 ml EYEBOTH QID [facility] Last Admin: 07/04/20 10:15 Dose: 1 drop Documented by: Aspirin (Halfprin) 81 mg PO DAILY [facility] Last Admin: 07/04/20 10:10 Dose: 81 mg Documented by: Benzonatate (Tessalon Perles) 200 mg PO Q4HR PRN PRN Reason: Cough Budesonide (Pulmicort) 0.25 mg INH BIDRT [facility] Last Admin: 07/04/20 06:30 Dose: 0.25 mg Documented by: Calcium Carbonate/Glycine (Tums) 1,000 mg PO DAILY PRN PRN Reason: Heartburn Cefdinir (Omnicef) 300 mg PO BID [facility] Stop: 07/05/20 22:30 Last Admin: 07/04/20 10:14 Dose: 300 mg Documented by: Clopidogrel Bisulfate (Plavix) 75 mg PO DAILY [facility] Last Admin: 07/04/20 10:14 Dose: 75 mg Documented by: Dexamethasone (Dexamethasone) 4 mg PO DAILY [facility] Last Admin: 07/04/20 10:07 Dose: 4 mg Documented by: Diazepam (Valium) 2 mg PO Q6HR PRN PRN Reason: Anxiety Diphenhydr/Magaldrate/Simeth/Lidoca (First-Mouthwash Blm Susp) 30 ml PO QID [facility] Last Admin: 07/04/20 10:08 Dose: 30 ml Documented by: Enoxaparin Sodium (Lovenox) 40 mg SUBCUT Q24H [facility] Fluticasone Propionate (Flonase) 0 gm NASBOTH DAILY [facility] Furosemide (Lasix) 20 mg PO DAILY [facility] Last Admin: 07/04/20 10:12 Dose: 20 mg Documented by: Gabapentin (Neurontin) 100 mg PO BID [facility] Last Admin: 07/04/20 10:14 Dose: 100 mg Documented by: Guaifenesin (Mucinex) 600 mg PO BID [facility] Last Admin: 07/04/20 10:13 Dose: 600 mg Documented by: Isosorbide Mononitrate (Imdur) 120 mg PO DAILY [facility] Last Admin: 07/04/20 10:11 Dose: 120 mg Documented by: Levothyroxine Sodium (Synthroid) 50 mcg PO DAILY [facility] Last Admin: 07/04/20 10:16 Dose: 50 mcg Documented by: Metoprolol Tartrate (Lopressor) 50 mg PO BID [facility] Last Admin: 07/04/20 10:12 Dose: 50 mg Documented by: Montelukast Sodium (Singulair) 10 mg PO BEDTIME [facility] Last Admin: 07/03/20 21:58 Dose: 10 mg Documented by: Nitroglycerin (Nitrostat) 0.4 mg SL ASDIRECTED PRN PRN Reason: Chest Pain Ondansetron HCl (Zofran Odt) 4 mg PO TID PRN PRN Reason: Nausea Pantoprazole Sodium (Protonix) 40 mg PO DAILY [facility] Last Admin: 07/04/20 10:15 Dose: 40 mg Documented by: Promethazine HCl/Codeine (Phenergan With Codeine) 10 ml PO Q8HR PRN PRN Reason: Cough Ranolazine (Ranexa) 500 mg PO BID [facility] Last Admin: 07/04/20 10:15 Dose: 500 mg Documented by: Rosuvastatin Calcium (Crestor) 20 mg PO DAILY [facility] Last Admin: 07/04/20 10:06 Dose: 20 mg Documented by: Sodium Chloride (Saline Flush) 10 ml FLUSH ASDIRECTED PRN PRN Reason: Keep Vein Open Last Admin: 07/02/20 10:21 Dose: 10 ml Documented by: Tamsulosin HCl (Flomax) 0.8 mg PO DAILY [facility] Last Admin: 07/04/20 10:09 Dose: 0.8 mg Documented by: Tiotropium Wagner (Spiriva Respimat) 0 gm INH DAILY@0600 [facility] Discontinued Medications Budesonide (Pulmicort) 0.25 mg INH BID [facility] Enoxaparin Sodium (Lovenox) 30 mg SUBCUT Q24H [facility] Last Admin: 07/03/20 14:04 Dose: 30 mg Documented by: Glycopyrrolate (Seebri Neohaler) 0 mcg IH BID [place] Glycopyrrolate (Seebri Neohaler) 15.6 mcg IH BIDRT [facility] Last Admin: 07/04/20 06:33 Dose: Not Given Documented by: Lorazepam (Ativan) 1 mg PO ONETIME ONE Stop: 07/02/20 07:01 Last Admin: 07/02/20 08:24 Dose: 1 mg Documented by: Non-Formulary Medication (Ipratropium) 2 puff INH TID [facility] Last Admin: 07/04/20 00:54 Dose: Not Given Documented by: Tiotropium Wagner (Spiriva Respimat) 0 gm INH DAILY [facility] Last Admin: 07/04/20 10:24 Dose: Not Given Documented by: Triamcinolone Acetonide (Triamcinolone Acetonide 0.1% Crm) gm TOP DAILY [facility] Valacyclovir HCl (Valtrex) 1,000 mg PO TID [facility] Last Admin: 07/04/20 10:16 Dose: 1,000 mg Documented by: - Exam Quality Assessment: Supplemental Oxygen, Urine Catheter, DVT Prophylaxis General: Alert, Oriented, Cooperative, No Acute Distress HEENT: Pupils Equal, Pupils Reactive, EOMI, Mucous Membr. Moist/Orr Neck: Trachea Midline, No JVD Lungs: Normal Respiratory Effort Cardiovascular: Regular Rate, Regular Rhythm GI/Abdominal Exam: Normal Bowel Sounds, Soft, Non-Tender (Male) Exam: Deferred Back Exam: Normal Inspection Extremities: Normal Inspection, Normal Capillary Refill Skin: Warm Wound/Incisions: Healing Well Neurological: No New Focal Deficit Psy/Mental Status: Alert, Depressed Sepsis Event Note - Evaluation Sepsis Screening Result: No Definite Risk - Focused Exam Vital Signs: Vital Signs Temp Temp Pulse Pulse Resp BP BP 07/04/20 10:12 68 122/68 07/04/20 09:00 36.6 C 68 20 122/68 07/04/20 06:33 07/04/20 02:33 36.8 C 66 20 145/65 H Pulse Ox Pulse Ox 07/04/20 10:12 07/04/20 09:00 100 07/04/20 06:33 100 07/04/20 02:33 98 - Problem List & Annotations (1) Anxiety SNOMED Code(s): 13045946 Code(s): F41.9 - ANXIETY DISORDER, UNSPECIFIED Status: Acute Current Visit: Yes (2) Dyspnea SNOMED Code(s): 146575565 Code(s): R06.00 - DYSPNEA, UNSPECIFIED Status: Chronic Current Visit: Yes (3) Metastatic lung carcinoma SNOMED Code(s): 61790573, 23200590, 790057430 Code(s): C78.00 - SECONDARY MALIGNANT NEOPLASM OF UNSPECIFIED LUNG Status: Chronic Current Visit: Yes Qualifiers: Laterality: unspecified laterality Qualified Code(s): C78.00 - Secondary malignant neoplasm of unspecified lung (4) Acute herpes zoster neuropathy SNOMED Code(s): 822990618 Code(s): B02.23 - POSTHERPETIC POLYNEUROPATHY Status: Acute Priority: Medium Current Visit: No (5) Anemia, macrocytic SNOMED Code(s): 70689213 Code(s): D53.9 - NUTRITIONAL ANEMIA, UNSPECIFIED Status: Chronic Priority: Medium Current Visit: No - Problem List Review Problem List Initiated/Reviewed/Updated: Yes - My Orders Last 24 Hours: My Active Orders 07/03/20 15:40 RESPIRATORY PANEL Routine 07/03/20 18:59 Blood Glucose Check, Bedside [RC] QIDACANDBED 07/03/20 21:00 Budesonide [Pulmicort] 0.25 mg INH BIDRT Gabapentin [Neurontin] 100 mg PO BID Metoprolol Tartrate [Lopressor] 50 mg PO BID Montelukast [Singulair] 10 mg PO BEDTIME Ranolazine [Ranexa] 500 mg PO BID 07/04/20 09:00 Consult to Physical Therapy [PT Evaluation and Treatment] [CONS] Routine Arformoterol [Brovana] 15 mcg INH BIDRT Aspirin [Halfprin] 81 mg PO DAILY Fluticasone Propionate [Flonase] 0 gm NASBOTH DAILY Furosemide [Lasix] 20 mg PO DAILY Isosorbide Mononitrate [Imdur] 120 mg PO DAILY Levothyroxine [Synthroid] 50 mcg PO DAILY Pantoprazole [ProTONIX] 40 mg PO DAILY Rosuvastatin [Crestor] 20 mg PO DAILY 07/04/20 14:00 Enoxaparin [Lovenox] 40 mg SUBCUT Q24H 07/05/20 06:00 Tiotropium [place] [Spiriva Respimat] 0 gm INH DAILY@0600 - Plan Plan:: Impression: S/P treatment for presumptive PNA S/P LE cellulitis (Klebsiella) S/P AUTI (Klebsiella) Treated for above with Vancomycin/Rocephin S/P Diabetic wound care S/P Herpes Zoster neuropathy Treatment for above with Valtrex Generalize weakness Hypoxia, mild (ABG) Query depression Chronic Lung CA with brain mets DHF, 2D echo 09/2018 LVEF 55-60%/grade I diastolic dysfunction CAD/PCI; NSTEMI COPD CKD stage III Migraine GREEN GERD BPH Hypothyroid Obesity Plan: CXR, 07/05/2020; query previously treated respiratory infection Respiratory panel; isolation O2 therapy, keep saturation > 90% Omincef 300 mg every 12 hours; DC IVF as needed ADA diet with sliding scale; heart healthy. Social work consult re: SNF RT with O2 therapy as needed. Resume PT/OT pre DC on 06/30/2020 DVT prophylaxis NEEDS SNF PLACEMENT
[2020-07-04] MEDS: Enoxaparin 40 MG/0.4 ML Syringe SUBCUT SCH (14:38)
[2020-07-04] MEDS ORDERED: Insulin Lispro 100 Units/ML 3 ML Vial SUBCUT ONE (17:46)
[2020-07-04] MEDS: Fluticasone Propionate Nasal Spray 16 GM Bottle NASBOTH SCH (18:09)
[2020-07-04 19:41] LABS: BORDETELLA PARAPERT IS1001 Not Detected (Not Detected)
[2020-07-04] MEDS: Insulin Lispro 100 Units/ML 3 ML Vial SUBCUT SCH (22:51)
[2020-07-04] MEDS: Insulin Glarg,Human.Rec.Analog 100 Unit/ML SUBCUT SCH (22:54)
[2020-07-04] MEDS: Montelukast 10 MG Tab PO SCH (22:55)
[2020-07-05] MEDS: Budesonide 0.25 MG/2 ML Neb Susp INH SCH ×2 (05:08→20:21)
[2020-07-05] MEDS: Arformoterol 15 MCG/2 ML Neb Soln INH SCH ×2 (05:08→20:21)
[2020-07-05] MEDS: Tiotropium Bromide 4 GM Inhalation Spray (2.5mcg/1 dose; 10 doses) INH SCH (05:09)
[2020-07-05] MEDS: Insulin Lispro 100 Units/ML 3 ML Vial SUBCUT SCH ×4 (08:10→21:29)
[2020-07-05] MEDS: Insulin Glarg,Human.Rec.Analog 100 Unit/ML SUBCUT SCH ×2 (08:14→20:06)
[2020-07-05] MEDS: Fluticasone Propionate Nasal Spray 16 GM Bottle NASBOTH SCH (08:18)
[2020-07-05] MEDS: Carboxymethylcellulose Sodium 1% Ophth Gel 15 ML Bottle EYEBOTH SCH ×5 (08:19→20:14)
[2020-07-05] MEDS: Diphenhydramine/Lidocaine/MagAl/Simethicone 119 ML Bottle PO SCH ×4 (08:19→20:13)
[2020-07-05] MEDS: Tamsulosin 0.4 MG Cap.ER PO SCH (08:23)
[2020-07-05] MEDS: Aspirin 81 MG Tab.EC PO SCH (08:24)
[2020-07-05] MEDS: Cefdinir 300 MG Cap PO SCH ×2 (08:24→20:12)
[2020-07-05] MEDS: Rosuvastatin 10 MG Tab PO SCH (08:24)
[2020-07-05] MEDS: Isosorbide Mononitrate 60 MG Tab.ER PO SCH (08:25)
[2020-07-05] MEDS: Gabapentin 100 MG Cap PO SCH ×2 (08:25→20:04)
[2020-07-05] MEDS: Dexamethasone 4 MG Tab PO SCH (08:25)
[2020-07-05] MEDS: Metoprolol Tartrate 50 MG Tab PO SCH ×2 (08:26→20:05)
[2020-07-05] MEDS: Levothyroxine 50 MCG Tab PO SCH (08:26)
[2020-07-05] MEDS: Pantoprazole 40 MG Tab.CR PO SCH (08:26)
[2020-07-05] MEDS: guaiFENesin 600 MG Tab.ER PO SCH ×2 (08:26→20:04)
[2020-07-05] MEDS: Clopidogrel 75 MG Tab PO SCH (08:26)
[2020-07-05] MEDS: Furosemide 20 MG Tab PO SCH (08:28)
--- NOTE | 2020-07-05 12:11 | CR ---
PROCEDURE INFORMATION: Exam: XR Chest, 1 View Exam date and time: 07/05/2020 9:43 AM Age: 80 years old Clinical indication: Shortness of breath; Patient HX: SOB TECHNIQUE: Imaging protocol: XR of the chest Views: 1 view. COMPARISON: OT Chest 1V Frontal 07/02/2020 6:07 AM FINDINGS: Tubes, catheters and devices: A right-sided Port-A-Cath is again present. Lungs: There is mild atelectasis at the bases with possible consolidation on the left. Pleural space: There is a small left pleural effusion. The right costophrenic angle is sharp. No pneumothorax is identified. Heart/Mediastinum: The cardiomediastinal silhouette is fairly stable in appearance. Bones/joints: Unremarkable. IMPRESSION: Small left pleural effusion with possible left basilar consolidation. Thank you for allowing us to participate in the care of your patient. Dictated and Authenticated by: Sidney Johnson MD 07/05/2020 12:06 PM Central Time ([place] & [place]) LISA
[2020-07-05] MEDS: Saccharomyces Boulardii (Probiotic) 250 MG Cap PO SCH (12:39)
[2020-07-05] MEDS ORDERED: Vancomycin 2 GM in Sodium Chloride 0.9% 500 ML IV ONE (13:00)
[2020-07-05] MEDS: Levofloxacin 750 MG Tab PO SCH (13:40)
[2020-07-05] MEDS: Enoxaparin 40 MG/0.4 ML Syringe SUBCUT SCH (13:41)
--- NOTE | 2020-07-05 16:54 | PCM.PN ---
- General Info Date of Service: 07/05/20 Subjective Update: Refusing vs too weak or deconditioned to ambulate. Functional Status: Reports: Tolerating Diet, Urinating - Review of Systems General: Reports: Weakness HEENT: Reports: No Symptoms Pulmonary: Reports: No Symptoms Cardiovascular: Reports: No Symptoms Gastrointestinal: Reports: No Symptoms Genitourinary: Reports: No Symptoms Musculoskeletal: Reports: No Symptoms Skin: Reports: No Symptoms Neurological: Reports: No Symptoms Psychiatric: Reports: No Symptoms - Patient Data Vitals - Most Recent: Last Vital Signs Temp 36.4 C 07/05/20 15:00 Pulse 59 L 07/05/20 11:25 Resp 16 07/05/20 15:00 BP 116/55 L 07/05/20 15:00 Pulse Ox 99 07/05/20 15:00 Weight - Most Recent: 105.052 kg I&O - Last 24 Hours: Intake & Output 07/05/20 07/05/20 07/05/20 06:59 14:59 22:59 Intake Total 400 560 740 Output Total 850 Balance -450 560 740 Lab Results Last 24 Hours: Laboratory Results - last 24 hr 07/03/20 07/04/20 07/04/20 Range/Units 15:40 17:40 21:49 WBC (4.23-9.07) K/mm3 RBC (4.63-6.08) M/mm3 Hgb (13.7-17.5) gm/dl Hct (40.1-51.0) % MCV (79.0-92.2) fl MCH (25.7-32.2) pg MCHC (32.2-35.5) g/dl RDW Std Deviation (35.1-43.9) fL Plt Count (163-337) K/mm3 MPV (9.4-12.3) fl Neut % (Auto) (34.0-67.9) % Lymph % (Auto) (21.8-53.1) % [place] % (Auto) (5.3-12.2) % Eos % (Auto) (0.8-7.0) Baso % (Auto) (0.1-1.2) % Neut # (Auto) (1.78-5.38) K/mm3 Lymph # (Auto) (1.32-3.57) K/mm3 [place] # (Auto) (0.30-0.82) K/mm3 Eos # (Auto) (0.04-0.54) K/mm3 Baso # (Auto) (0.01-0.08) K/mm3 Manual Slide Review Sodium (136-145) mEq/L Potassium (3.5-5.1) mEq/L Chloride (98-107) mEq/L Carbon Dioxide (21-32) mEq/L Anion Gap (5-15) BUN (7-18) mg/dL Creatinine (0.7-1.3) mg/dL Est Cr Clr Drug Dosing mL/min Estimated GFR (MDRD) (>60) mL/min BUN/Creatinine Ratio (14-18) Glucose 466 H 448 H (83-115) mg/dL POC Glucose (83-110) mg/dL Lactic Acid (0.4-2.0) mmol/L Calcium (8.5-10.1) mg/dL C-Reactive Protein (<1.0) mg/dL Adenovirus (PCR) Not detected (Not Detected) B. pertussis DNA (PCR) Not detected (Not Detected) B.parapertussis DNA PCR Not detected (Not Detected) C. pneumoniae DNA (PCR) Not detected (Not Detected) Coronavirus OC43 (PCR) Not detected (Not Detected) Coronavirus HKU1 (PCR) Not detected (Not Detected) Coronavirus 229E (PCR) Not detected (Not Detected) Coronavirus NL63 (PCR) Not detected (Not Detected) Human Metapneumovir PCR Not detected (Not Detected) Influenza A (RT-PCR) Not detected (Not Detected) Influenza B (RT-PCR) Not detected (Not Detected) M. pneumoniae (PCR) Not detected (Not Detected) Parainfluenza 1 (PCR) Not detected (Not Detected) Parainfluenza 2 (PCR) Not detected (Not Detected) Parainfluenza 3 (PCR) Not detected (Not Detected) Parainfluenza 4 (PCR) Not detected (Not Detected) RSV (PCR) Not detected (Not Detected) Entero/Rhino (PCR) Not detected (Not Detected) SARS-CoV-2 (PCR) Not detected (Not Detected) 07/05/20 07/05/20 07/05/20 Range/Units 05:49 11:17 15:04 WBC 9.33 H (4.23-9.07) K/mm3 RBC 2.40 L (4.63-6.08) M/mm3 Hgb 7.4 L (13.7-17.5) gm/dl Hct 23.8 L (40.1-51.0) % MCV 99.2 H (79.0-92.2) fl MCH 30.8 (25.7-32.2) pg MCHC 31.1 L (32.2-35.5) g/dl RDW Std Deviation 50.2 H (35.1-43.9) fL Plt Count 137 L (163-337) K/mm3 MPV 9.6 (9.4-12.3) fl Neut % (Auto) 92.5 H (34.0-67.9) % Lymph % (Auto) 3.3 L (21.8-53.1) % [place] % (Auto) 2.5 L (5.3-12.2) % Eos % (Auto) 0 L (0.8-7.0) Baso % (Auto) 0.1 (0.1-1.2) % Neut # (Auto) 8.63 H (1.78-5.38) K/mm3 Lymph # (Auto) 0.31 L (1.32-3.57) K/mm3 [place] # (Auto) 0.23 L (0.30-0.82) K/mm3 Eos # (Auto) 0.00 L (0.04-0.54) K/mm3 Baso # (Auto) 0.01 (0.01-0.08) K/mm3 Manual Slide Review Abnormal smear Sodium (136-145) mEq/L Potassium (3.5-5.1) mEq/L Chloride (98-107) mEq/L Carbon Dioxide (21-32) mEq/L Anion Gap (5-15) BUN (7-18) mg/dL Creatinine (0.7-1.3) mg/dL Est Cr Clr Drug Dosing mL/min Estimated GFR (MDRD) (>60) mL/min BUN/Creatinine Ratio (14-18) Glucose (83-115) mg/dL POC Glucose 243 H 251 H (83-110) mg/dL Lactic Acid (0.4-2.0) mmol/L Calcium (8.5-10.1) mg/dL C-Reactive Protein (<1.0) mg/dL Adenovirus (PCR) (Not Detected) B. pertussis DNA (PCR) (Not Detected) B.parapertussis DNA PCR (Not Detected) C. pneumoniae DNA (PCR) (Not Detected) Coronavirus OC43 (PCR) (Not Detected) Coronavirus HKU1 (PCR) (Not Detected) Coronavirus 229E (PCR) (Not Detected) Coronavirus NL63 (PCR) (Not Detected) Human Metapneumovir PCR (Not Detected) Influenza A (RT-PCR) (Not Detected) Influenza B (RT-PCR) (Not Detected) M. pneumoniae (PCR) (Not Detected) Parainfluenza 1 (PCR) (Not Detected) Parainfluenza 2 (PCR) (Not Detected) Parainfluenza 3 (PCR) (Not Detected) Parainfluenza 4 (PCR) (Not Detected) RSV (PCR) (Not Detected) Entero/Rhino (PCR) (Not Detected) SARS-CoV-2 (PCR) (Not Detected) 07/05/20 07/05/20 07/05/20 Range/Units 15:04 15:04 16:19 WBC (4.23-9.07) K/mm3 RBC (4.63-6.08) M/mm3 Hgb (13.7-17.5) gm/dl Hct (40.1-51.0) % MCV (79.0-92.2) fl MCH (25.7-32.2) pg MCHC (32.2-35.5) g/dl RDW Std Deviation (35.1-43.9) fL Plt Count (163-337) K/mm3 MPV (9.4-12.3) fl Neut % (Auto) (34.0-67.9) % Lymph % (Auto) (21.8-53.1) % [place] % (Auto) (5.3-12.2) % Eos % (Auto) (0.8-7.0) Baso % (Auto) (0.1-1.2) % Neut # (Auto) (1.78-5.38) K/mm3 Lymph # (Auto) (1.32-3.57) K/mm3 [place] # (Auto) (0.30-0.82) K/mm3 Eos # (Auto) (0.04-0.54) K/mm3 Baso # (Auto) (0.01-0.08) K/mm3 Manual Slide Review Sodium 134 L (136-145) mEq/L Potassium 4.9 (3.5-5.1) mEq/L Chloride 98 (98-107) mEq/L Carbon Dioxide 32 (21-32) mEq/L Anion Gap 8.9 (5-15) BUN 37 H (7-18) mg/dL Creatinine 1.4 H (0.7-1.3) mg/dL Est Cr Clr Drug Dosing 47.56 mL/min Estimated GFR (MDRD) 49 (>60) mL/min BUN/Creatinine Ratio 26.4 H (14-18) Glucose 303 H (83-115) mg/dL POC Glucose 351 H (83-110) mg/dL Lactic Acid 2.1 H* (0.4-2.0) mmol/L Calcium 8.2 L (8.5-10.1) mg/dL C-Reactive Protein 8.9 H* (<1.0) mg/dL Adenovirus (PCR) (Not Detected) B. pertussis DNA (PCR) (Not Detected) B.parapertussis DNA PCR (Not Detected) C. pneumoniae DNA (PCR) (Not Detected) Coronavirus OC43 (PCR) (Not Detected) Coronavirus HKU1 (PCR) (Not Detected) Coronavirus 229E (PCR) (Not Detected) Coronavirus NL63 (PCR) (Not Detected) Human Metapneumovir PCR (Not Detected) Influenza A (RT-PCR) (Not Detected) Influenza B (RT-PCR) (Not Detected) M. pneumoniae (PCR) (Not Detected) Parainfluenza 1 (PCR) (Not Detected) Parainfluenza 2 (PCR) (Not Detected) Parainfluenza 3 (PCR) (Not Detected) Parainfluenza 4 (PCR) (Not Detected) RSV (PCR) (Not Detected) Entero/Rhino (PCR) (Not Detected) SARS-CoV-2 (PCR) (Not Detected) Med Orders - Current: Current Medications Albuterol (Proventil Hfa) 0 gm INH QID PRN PRN Reason: Shortness of Breath Arformoterol Tartrate (Brovana) 15 mcg INH BIDRT [facility] Last Admin: 07/05/20 05:08 Dose: 15 mcg Documented by: Artificial Tears (Refresh Liquigel 1%) 0 ml EYEBOTH QID [facility] Last Admin: 07/05/20 16:44 Dose: 1 drop Documented by: Aspirin (Halfprin) 81 mg PO DAILY [facility] Last Admin: 07/05/20 08:24 Dose: 81 mg Documented by: Benzonatate (Tessalon Perles) 200 mg PO Q4HR PRN PRN Reason: Cough Budesonide (Pulmicort) 0.25 mg INH BIDRT [facility] Last Admin: 07/05/20 05:08 Dose: 0.25 mg Documented by: Calcium Carbonate/Glycine (Tums) 1,000 mg PO DAILY PRN PRN Reason: Heartburn Cefdinir (Omnicef) 300 mg PO BID [facility] Stop: 07/05/20 22:30 Last Admin: 07/05/20 08:24 Dose: 300 mg Documented by: Clopidogrel Bisulfate (Plavix) 75 mg PO DAILY [facility] Last Admin: 07/05/20 08:26 Dose: 75 mg Documented by: Dexamethasone (Dexamethasone) 4 mg PO DAILY [facility] Last Admin: 07/05/20 08:25 Dose: 4 mg Documented by: Diazepam (Valium) 2 mg PO Q6HR PRN PRN Reason: Anxiety Diphenhydr/Magaldrate/Simeth/Lidoca (First-Mouthwash Blm Susp) 30 ml PO QID [facility] Last Admin: 07/05/20 16:44 Dose: 30 ml Documented by: Enoxaparin Sodium (Lovenox) 40 mg SUBCUT Q24H [facility] Last Admin: 07/05/20 13:41 Dose: 40 mg Documented by: Fluticasone Propionate (Flonase) 0 gm NASBOTH DAILY [facility] Last Admin: 07/05/20 08:18 Dose: 2 spray Documented by: Furosemide (Lasix) 20 mg PO DAILY [facility] Last Admin: 07/05/20 08:28 Dose: 20 mg Documented by: Gabapentin (Neurontin) 100 mg PO BID [facility] Last Admin: 07/05/20 08:25 Dose: 100 mg Documented by: Guaifenesin (Mucinex) 600 mg PO BID [facility] Last Admin: 07/05/20 08:26 Dose: 600 mg Documented by: Vancomycin HCl 1 gm/Vancomycin HCl 500 mg/ Sodium Chloride 500 mls @ 250 mls/hr IV Q18H [facility] Insulin Glargine (Lantus) 25 unit SUBCUT BID [facility] Last Admin: 07/05/20 08:14 Dose: 25 units Documented by: Insulin Human Lispro (Humalog) 0 unit SUBCUT QIDACANDBED [facility]; Protocol Last Admin: 07/05/20 16:43 Dose: 15 units Documented by: Isosorbide Mononitrate (Imdur) 120 mg PO DAILY [facility] Last Admin: 07/05/20 08:25 Dose: 120 mg Documented by: Levofloxacin (Levaquin) 750 mg PO Q24H [facility] Last Admin: 07/05/20 13:40 Dose: 750 mg Documented by: Levothyroxine Sodium (Synthroid) 50 mcg PO DAILY [facility] Last Admin: 07/05/20 08:26 Dose: 50 mcg Documented by: Metoprolol Tartrate (Lopressor) 50 mg PO BID [facility] Last Admin: 07/05/20 08:26 Dose: 50 mg Documented by: Montelukast Sodium (Singulair) 10 mg PO BEDTIME [facility] Last Admin: 07/04/20 22:55 Dose: 10 mg Documented by: Nitroglycerin (Nitrostat) 0.4 mg SL ASDIRECTED PRN PRN Reason: Chest Pain Ondansetron HCl (Zofran Odt) 4 mg PO TID PRN PRN Reason: Nausea Pantoprazole Sodium (Protonix) 40 mg PO DAILY [facility] Last Admin: 07/05/20 08:26 Dose: 40 mg Documented by: Promethazine HCl/Codeine (Phenergan With Codeine) 10 ml PO Q8HR PRN PRN Reason: Cough Ranolazine (Ranexa) 500 mg PO BID [facility] Last Admin: 07/05/20 08:24 Dose: 500 mg Documented by: Rosuvastatin Calcium (Crestor) 20 mg PO DAILY [facility] Last Admin: 07/05/20 08:24 Dose: 20 mg Documented by: Saccharomyces Boulardii (Florastor) 500 mg PO DAILY [facility] Last Admin: 07/05/20 12:39 Dose: 500 mg Documented by: Sodium Chloride (Saline Flush) 10 ml FLUSH ASDIRECTED PRN PRN Reason: Keep Vein Open Last Admin: 07/02/20 10:21 Dose: 10 ml Documented by: Tamsulosin HCl (Flomax) 0.8 mg PO DAILY [facility] Last Admin: 07/05/20 08:23 Dose: 0.8 mg Documented by: Tiotropium [place] (Spiriva Respimat) 0 gm INH DAILY@0600 [facility] Last Admin: 07/05/20 05:09 Dose: 4 gm Documented by: Vancomycin HCl (Pharmacy To Dose - Vancomycin) 1 dose .XX ASDIRECTED [facility] Discontinued Medications Budesonide (Pulmicort) 0.25 mg INH BID [facility] Enoxaparin Sodium (Lovenox) 30 mg SUBCUT Q24H [facility] Last Admin: 07/03/20 14:04 Dose: 30 mg Documented by: Glycopyrrolate (Seebri Neohaler) 0 mcg IH BID [place] Glycopyrrolate (Seebri Neohaler) 15.6 mcg IH BIDRT [facility] Last Admin: 07/04/20 06:33 Dose: Not Given Documented by: Vancomycin HCl 2 gm/ Sodium (Chloride) 500 mls @ 250 mls/hr IV ONETIME ONE Stop: 07/05/20 14:59 Last Admin: 07/05/20 13:41 Dose: 250 mls/hr Documented by: Insulin Human Lispro (Humalog) 10 unit SUBCUT ONETIME ONE Stop: 07/04/20 17:47 Last Admin: 07/04/20 18:11 Dose: 10 units Documented by: Lorazepam (Ativan) 1 mg PO ONETIME ONE Stop: 07/02/20 07:01 Last Admin: 07/02/20 08:24 Dose: 1 mg Documented by: Non-Formulary Medication (Ipratropium) 2 puff INH TID [facility] Last Admin: 07/04/20 00:54 Dose: Not Given Documented by: Tiotropium [place] (Spiriva Respimat) 0 gm INH DAILY [facility] Last Admin: 07/04/20 10:24 Dose: Not Given Documented by: Triamcinolone Acetonide (Triamcinolone Acetonide 0.1% Crm) gm TOP DAILY [facility] Valacyclovir HCl (Valtrex) 1,000 mg PO TID [facility] Last Admin: 07/04/20 10:16 Dose: 1,000 mg Documented by: - Exam Quality Assessment: Supplemental Oxygen, Urine Catheter, DVT Prophylaxis General: Alert, Oriented, Cooperative, No Acute Distress HEENT: Pupils Equal, Pupils Reactive, EOMI Neck: Trachea Midline, No JVD Lungs: Normal Respiratory Effort Cardiovascular: Regular Rate, Regular Rhythm GI/Abdominal Exam: Normal Bowel Sounds, Soft, Non-Tender, No Organomegaly, No Distention (Male) Exam: Deferred Back Exam: Normal Inspection Extremities: Normal Inspection, Non-Tender, Normal Capillary Refill Skin: Warm Neurological: No New Focal Deficit Psy/Mental Status: Alert, Normal Affect, Normal Mood Sepsis Event Note - Evaluation Sepsis Screening Result: No Definite Risk - Focused Exam Vital Signs: Vital Signs Temp Temp Pulse Resp BP BP Pulse Ox 07/05/20 15:00 36.4 C 16 116/55 L 99 07/05/20 11:25 36.6 C 59 L 20 105/56 L 100 07/05/20 08:26 59 L 132/61 07/05/20 07:36 36.3 C 59 L 18 132/61 100 07/05/20 05:47 36.6 C 56 L 18 177/67 H 100 07/05/20 05:09 Pulse Ox 07/05/20 15:00 07/05/20 11:25 07/05/20 08:26 07/05/20 07:36 07/05/20 05:47 07/05/20 05:09 100 - Problem List & Annotations (1) Anxiety SNOMED Code(s): 32278523 Code(s): F41.9 - ANXIETY DISORDER, UNSPECIFIED Status: Acute Current Visit: Yes (2) Dyspnea SNOMED Code(s): 152466758 Code(s): R06.00 - DYSPNEA, UNSPECIFIED Status: Chronic Current Visit: Yes (3) Metastatic lung carcinoma SNOMED Code(s): 80335638, 40563707, 817101641 Code(s): C78.00 - SECONDARY MALIGNANT NEOPLASM OF UNSPECIFIED LUNG Status: Chronic Current Visit: Yes Qualifiers: Laterality: unspecified laterality Qualified Code(s): C78.00 - Secondary malignant neoplasm of unspecified lung (4) Acute herpes zoster neuropathy SNOMED Code(s): 326754858 Code(s): B02.23 - POSTHERPETIC POLYNEUROPATHY Status: Acute Priority: Medium Current Visit: No (5) Anemia, macrocytic SNOMED Code(s): 72541324 Code(s): D53.9 - NUTRITIONAL ANEMIA, UNSPECIFIED Status: Chronic Priority: Medium Current Visit: No - Problem List Review Problem List Initiated/Reviewed/Updated: Yes - My Orders Last 24 Hours: My Active Orders 07/04/20 22:00 Insulin Lispro [HumaLOG] See Protocol SUBCUT QIDACANDBED 07/04/20 22:15 Insulin Glarg,Human.Rec.Analog [LantUS] 25 unit SUBCUT BID 07/04/20 23:47 Up With Assistance [RC] ASDIRECTED 07/05/20 06:00 Tiotropium [place] [Spiriva Respimat] 0 gm INH DAILY@0600 07/05/20 12:00 Pharmacy to Dose - Vancomycin 1 dose .XX ASDIRECTED Saccharomyces Boulardii [Florastor] 500 mg PO DAILY 07/05/20 13:00 levoFLOXacin [Levaquin] 750 mg PO Q24H 07/05/20 Dinner Consistent Carbohydrate Diet [DIET] 07/06/20 05:00 CBC WITH AUTO DIFF [HEME] Routine 07/06/20 07:00 Vancomycin 1 gm Vancomycin 500 mg Sodium Chloride 0.9% [Normal Saline] 500 ml IV Q18H - Plan Plan:: Impression: S/P treatment for possible multifocal PNA (06/26/2020) admission Resp panel--negative CXR, LLL infiltrate; query previously treated PNA vs HCAP S/P LE cellulitis (Klebsiella) S/P AUTI (Klebsiella) Treated for above with Vancomycin/Rocephin; 06/26/2020 admission S/P Diabetic wound care S/P Herpes Zoster neuropathy Treatment for above with Valtrex; 06/26/2020 Generalize weakness--improved. Hypoxia, mild (ABG) Query depression Chronic Lung CA with brain mets DHF, 2D echo 09/2018 LVEF 55-60%/grade I diastolic dysfunction CAD/PCI; NSTEMI COPD CKD stage III Migraine GREEN GERD BPH Hypothyroid Obesity Plan: Start vancomycin; Levoquin orally DC resp isolation O2 therapy, keep saturation > 90% Omincef stop IVF as needed ADA diet with sliding scale; heart healthy. Social work consult re: SNF RT with O2 therapy as needed. Resume PT/OT pre DC on 06/30/2020 DVT prophylaxis NEEDS SNF PLACEMENT
[2020-07-05] MEDS: Montelukast 10 MG Tab PO SCH (20:04)
[2020-07-06] MEDS: Budesonide 0.25 MG/2 ML Neb Susp INH SCH ×2 (05:32→20:33)
[2020-07-06] MEDS: Arformoterol 15 MCG/2 ML Neb Soln INH SCH ×2 (05:32→20:33)
[2020-07-06] MEDS: Tiotropium Bromide 4 GM Inhalation Spray (2.5mcg/1 dose; 10 doses) INH SCH (05:33)
[2020-07-06] MEDS: Insulin Lispro 100 Units/ML 3 ML Vial SUBCUT SCH ×4 (06:31→21:32)
[2020-07-06] MEDS: Vancomycin 1 GM, Vancomycin 500 MG in Sodium Chloride 0.9% 500 ML IV SCH (06:41)
[2020-07-06] MEDS: Insulin Glarg,Human.Rec.Analog 100 Unit/ML SUBCUT SCH ×2 (09:27→21:33)
[2020-07-06] MEDS: Diphenhydramine/Lidocaine/MagAl/Simethicone 119 ML Bottle PO SCH ×4 (09:28→21:32)
[2020-07-06] MEDS: Carboxymethylcellulose Sodium 1% Ophth Gel 15 ML Bottle EYEBOTH SCH ×4 (09:29→21:31)
[2020-07-06] MEDS: Fluticasone Propionate Nasal Spray 16 GM Bottle NASBOTH SCH (09:29)
[2020-07-06] MEDS: Saccharomyces Boulardii (Probiotic) 250 MG Cap PO SCH (09:30)
[2020-07-06] MEDS: Aspirin 81 MG Tab.EC PO SCH (09:30)
[2020-07-06] MEDS: Levothyroxine 50 MCG Tab PO SCH (09:30)
[2020-07-06] MEDS: Isosorbide Mononitrate 60 MG Tab.ER PO SCH (09:30)
[2020-07-06] MEDS: Pantoprazole 40 MG Tab.CR PO SCH (09:30)
[2020-07-06] MEDS: Furosemide 20 MG Tab PO SCH (09:30)
[2020-07-06] MEDS: Gabapentin 100 MG Cap PO SCH ×2 (09:30→21:34)
[2020-07-06] MEDS: Tamsulosin 0.4 MG Cap.ER PO SCH (09:30)
[2020-07-06] MEDS: Metoprolol Tartrate 50 MG Tab PO SCH ×2 (09:30→21:34)
[2020-07-06] MEDS: Clopidogrel 75 MG Tab PO SCH (09:31)
[2020-07-06] MEDS: Dexamethasone 4 MG Tab PO SCH (09:31)
[2020-07-06] MEDS: guaiFENesin 600 MG Tab.ER PO SCH ×2 (09:31→21:34)
[2020-07-06] MEDS: Rosuvastatin 10 MG Tab PO SCH (09:31)
[2020-07-06] MEDS: Levofloxacin 750 MG Tab PO SCH (12:12)
[2020-07-06] MEDS: Enoxaparin 40 MG/0.4 ML Syringe SUBCUT SCH (14:55)
--- NOTE | 2020-07-06 16:33 | PCM.PN ---
- General Info Date of Service: 07/06/20 Admission Dx/Problem (Free Text): Admission Diagnosis/Problem Admission Diagnosis/Problem Hypoxia Subjective Update: Patient does state he continues to feel weak and is unable to walk. Functional Status: Reports: Pain Controlled - Review of Systems General: Reports: Fatigue HEENT: Reports: No Symptoms Pulmonary: Reports: No Symptoms Cardiovascular: Reports: No Symptoms Genitourinary: Reports: No Symptoms Musculoskeletal: Reports: Other (Weakness) Neurological: Reports: Difficulty Walking, Weakness - Patient Data Vitals - Most Recent: Last Vital Signs Temp 97.3 F 07/06/20 09:23 Pulse 74 07/06/20 09:30 Resp 20 07/06/20 09:23 BP 148/95 H 07/06/20 09:30 Pulse Ox 98 07/06/20 09:23 Weight - Most Recent: 236 lb 6.4 oz I&O - Last 24 Hours: Intake & Output 07/06/20 07/06/20 07/06/20 06:59 14:59 22:59 Intake Total 300 240 Output Total 1150 Balance -850 240 Lab Results Last 24 Hours: Laboratory Results - last 24 hr 07/05/20 07/06/20 07/06/20 Range/Units 20:01 05:53 06:08 WBC 8.82 (4.23-9.07) K/mm3 RBC 2.72 L (4.63-6.08) M/mm3 Hgb 8.4 L (13.7-17.5) gm/dl Hct 27.0 L (40.1-51.0) % MCV 99.3 H (79.0-92.2) fl MCH 30.9 (25.7-32.2) pg MCHC 31.1 L (32.2-35.5) g/dl RDW Std Deviation 51.7 H (35.1-43.9) fL Plt Count 127 L (163-337) K/mm3 MPV 10.0 (9.4-12.3) fl Neut % (Auto) 89.2 H (34.0-67.9) % Lymph % (Auto) 4.8 L (21.8-53.1) % Cross % (Auto) 3.7 L (5.3-12.2) % Eos % (Auto) 0 L (0.8-7.0) Baso % (Auto) 0.1 (0.1-1.2) % Neut # (Auto) 7.87 H (1.78-5.38) K/mm3 Lymph # (Auto) 0.42 L (1.32-3.57) K/mm3 Cross # (Auto) 0.33 (0.30-0.82) K/mm3 Eos # (Auto) 0.00 L (0.04-0.54) K/mm3 Baso # (Auto) 0.01 (0.01-0.08) K/mm3 Manual Slide Review Abnormal smear POC Glucose 312 H 114 H (83-110) mg/dL 07/06/20 Range/Units 12:03 WBC (4.23-9.07) K/mm3 RBC (4.63-6.08) M/mm3 Hgb (13.7-17.5) gm/dl Hct (40.1-51.0) % MCV (79.0-92.2) fl MCH (25.7-32.2) pg MCHC (32.2-35.5) g/dl RDW Std Deviation (35.1-43.9) fL Plt Count (163-337) K/mm3 MPV (9.4-12.3) fl Neut % (Auto) (34.0-67.9) % Lymph % (Auto) (21.8-53.1) % Cross % (Auto) (5.3-12.2) % Eos % (Auto) (0.8-7.0) Baso % (Auto) (0.1-1.2) % Neut # (Auto) (1.78-5.38) K/mm3 Lymph # (Auto) (1.32-3.57) K/mm3 Cross # (Auto) (0.30-0.82) K/mm3 Eos # (Auto) (0.04-0.54) K/mm3 Baso # (Auto) (0.01-0.08) K/mm3 Manual Slide Review POC Glucose 239 H (83-110) mg/dL Med Orders - Current: Current Medications Albuterol (Proventil Hfa) 0 gm INH QID PRN PRN Reason: Shortness of Breath Arformoterol Tartrate (Brovana) 15 mcg INH BIDRT [facility] Last Admin: 07/06/20 05:32 Dose: 15 mcg Documented by: Artificial Tears (Refresh Liquigel 1%) 0 ml EYEBOTH QID [facility] Last Admin: 07/06/20 12:13 Dose: Not Given Documented by: Aspirin (Halfprin) 81 mg PO DAILY [facility] Last Admin: 07/06/20 09:30 Dose: 81 mg Documented by: Benzonatate (Tessalon Perles) 200 mg PO Q4HR PRN PRN Reason: Cough Budesonide (Pulmicort) 0.25 mg INH BIDRT [facility] Last Admin: 07/06/20 05:32 Dose: 0.25 mg Documented by: Calcium Carbonate/Glycine (Tums) 1,000 mg PO DAILY PRN PRN Reason: Heartburn Clopidogrel Bisulfate (Plavix) 75 mg PO DAILY [facility] Last Admin: 07/06/20 09:31 Dose: 75 mg Documented by: Dexamethasone (Dexamethasone) 4 mg PO DAILY [facility] Last Admin: 07/06/20 09:31 Dose: 4 mg Documented by: Diazepam (Valium) 2 mg PO Q6HR PRN PRN Reason: Anxiety Last Admin: 07/06/20 01:08 Dose: 2 mg Documented by: Diphenhydr/Magaldrate/Simeth/Lidoca (First-Mouthwash Blm Susp) 30 ml PO QID [facility] Last Admin: 07/06/20 12:12 Dose: 30 ml Documented by: Enoxaparin Sodium (Lovenox) 40 mg SUBCUT Q24H [facility] Last Admin: 07/06/20 14:55 Dose: 40 mg Documented by: Fluticasone Propionate (Flonase) 0 gm NASBOTH DAILY [facility] Last Admin: 07/06/20 09:29 Dose: 1 spray Documented by: Furosemide (Lasix) 20 mg PO DAILY [facility] Last Admin: 07/06/20 09:30 Dose: 20 mg Documented by: Gabapentin (Neurontin) 100 mg PO BID [facility] Last Admin: 07/06/20 09:30 Dose: 100 mg Documented by: Guaifenesin (Mucinex) 600 mg PO BID [facility] Last Admin: 07/06/20 09:31 Dose: 600 mg Documented by: Vancomycin HCl 1 gm/Vancomycin HCl 500 mg/ Sodium Chloride 500 mls @ 250 mls/hr IV Q18H [facility] Last Admin: 11/11/20 06:41 Dose: 250 mls/hr Documented by: Insulin Glargine (Lantus) 25 unit SUBCUT BID [facility] Last Admin: 07/06/20 09:27 Dose: 25 units Documented by: Insulin Human Lispro (Humalog) 0 unit SUBCUT QIDACANDBED [facility]; Protocol Last Admin: 07/06/20 12:10 Dose: 6 units Documented by: Isosorbide Mononitrate (Imdur) 120 mg PO DAILY [facility] Last Admin: 07/06/20 09:30 Dose: 120 mg Documented by: Levofloxacin (Levaquin) 750 mg PO Q24H [facility] Last Admin: 07/06/20 12:12 Dose: 750 mg Documented by: Levothyroxine Sodium (Synthroid) 50 mcg PO DAILY [facility] Last Admin: 07/06/20 09:30 Dose: 50 mcg Documented by: Metoprolol Tartrate (Lopressor) 50 mg PO BID [facility] Last Admin: 07/06/20 09:30 Dose: 50 mg Documented by: Montelukast Sodium (Singulair) 10 mg PO BEDTIME [facility] Last Admin: 07/05/20 20:04 Dose: 10 mg Documented by: Nitroglycerin (Nitrostat) 0.4 mg SL ASDIRECTED PRN PRN Reason: Chest Pain Ondansetron HCl (Zofran Odt) 4 mg PO TID PRN PRN Reason: Nausea Pantoprazole Sodium (Protonix) 40 mg PO DAILY [facility] Last Admin: 07/06/20 09:30 Dose: 40 mg Documented by: Promethazine HCl/Codeine (Phenergan With Codeine) 10 ml PO Q8HR PRN PRN Reason: Cough Ranolazine (Ranexa) 500 mg PO BID [facility] Last Admin: 07/06/20 09:30 Dose: 500 mg Documented by: Rosuvastatin Calcium (Crestor) 20 mg PO DAILY [facility] Last Admin: 07/06/20 09:31 Dose: 20 mg Documented by: Saccharomyces Boulardii (Florastor) 500 mg PO DAILY [facility] Last Admin: 07/06/20 09:30 Dose: 500 mg Documented by: Sodium Chloride (Saline Flush) 10 ml FLUSH ASDIRECTED PRN PRN Reason: Keep Vein Open Last Admin: 07/02/20 10:21 Dose: 10 ml Documented by: Tamsulosin HCl (Flomax) 0.8 mg PO DAILY [facility] Last Admin: 07/06/20 09:30 Dose: 0.8 mg Documented by: Tiotropium [place] (Spiriva Respimat) 0 gm INH DAILY@0600 [facility] Last Admin: 07/06/20 05:33 Dose: 4 gm Documented by: Vancomycin HCl (Pharmacy To Dose - Vancomycin) 1 dose .XX ASDIRECTED [facility] Discontinued Medications Budesonide (Pulmicort) 0.25 mg INH BID [facility] Cefdinir (Omnicef) 300 mg PO BID [facility] Stop: 07/05/20 22:30 Last Admin: 07/05/20 20:12 Dose: 300 mg Documented by: Enoxaparin Sodium (Lovenox) 30 mg SUBCUT Q24H [facility] Last Admin: 07/03/20 14:04 Dose: 30 mg Documented by: Glycopyrrolate (Seebri Neohaler) 0 mcg IH BID [facility] Glycopyrrolate (Seebri Neohaler) 15.6 mcg IH BIDRT [facility] Last Admin: 07/04/20 06:33 Dose: Not Given Documented by: Vancomycin HCl 2 gm/ Sodium (Chloride) 500 mls @ 250 mls/hr IV ONETIME ONE Stop: 07/05/20 14:59 Last Admin: 07/05/20 13:41 Dose: 250 mls/hr Documented by: Insulin Human Lispro (Humalog) 10 unit SUBCUT ONETIME ONE Stop: 07/04/20 17:47 Last Admin: 07/04/20 18:11 Dose: 10 units Documented by: Lorazepam (Ativan) 1 mg PO ONETIME ONE Stop: 07/02/20 07:01 Last Admin: 07/02/20 08:24 Dose: 1 mg Documented by: Non-Formulary Medication (Ipratropium) 2 puff INH TID [facility] Last Admin: 07/04/20 00:54 Dose: Not Given Documented by: Tiotropium [place] (Spiriva Respimat) 0 gm INH DAILY [facility] Last Admin: 07/04/20 10:24 Dose: Not Given Documented by: Triamcinolone Acetonide (Triamcinolone Acetonide 0.1% Crm) gm TOP DAILY [facility] Valacyclovir HCl (Valtrex) 1,000 mg PO TID [facility] Last Admin: 07/04/20 10:16 Dose: 1,000 mg Documented by: - Exam Quality Assessment: Supplemental Oxygen General: Alert, Oriented HEENT: Pupils Equal, Mucous Membr. Moist/[place] Neck: Supple Lungs: Normal Respiratory Effort, Decreased Breath Sounds, Rhonchi GI/Abdominal Exam: Normal Bowel Sounds, Soft, Non-Tender, No Distention Extremities: Normal Inspection, Normal Capillary Refill Skin: Warm, Dry, Intact Psy/Mental Status: Alert, Normal Affect, Normal Mood Sepsis Event Note - Evaluation Sepsis Screening Result: No Definite Risk - Focused Exam Vital Signs: Vital Signs Temp Pulse Resp BP Pulse Ox Pulse Ox 07/06/20 09:30 74 148/95 H 07/06/20 09:23 97.3 F 74 20 148/95 H 98 07/06/20 05:34 100 07/06/20 04:39 97.9 F 58 L 18 147/63 H 100 - Problem List & Annotations (1) Metastatic lung carcinoma SNOMED Code(s): 03926634, 46169212, 592488994 Code(s): C78.00 - SECONDARY MALIGNANT NEOPLASM OF UNSPECIFIED LUNG Status: Chronic Current Visit: Yes Qualifiers: Laterality: unspecified laterality Qualified Code(s): C78.00 - Secondary malignant neoplasm of unspecified lung (2) Metastasis to brain Status: Chronic Current Visit: No (3) Pneumonia SNOMED Code(s): 211270589 Code(s): J18.9 - PNEUMONIA, UNSPECIFIED ORGANISM Status: Acute Priority: High Current Visit: No Qualifiers: Pneumonia type: due to unspecified organism Laterality: left Lung locati on: lower lobe of lung Qualified Code(s): J18.9 - Pneumonia, unspecified organism - Problem List Review Problem List Initiated/Reviewed/Updated: Yes - My Orders Last 24 Hours: My Active Orders 07/10/20 21:00 CORONAVIRUS COVID-19 TAYLOR [[facility]] Routine - Plan Plan:: Impression: S/P treatment for possible multifocal PNA (06/26/2020) admission Resp panel--negative CXR, LLL infiltrate; query previously treated PNA vs HCAP S/P LE cellulitis (Klebsiella) S/P AUTI (Klebsiella) Treated for above with Vancomycin/Rocephin; 06/26/2020 admission S/P Diabetic wound care S/P Herpes Zoster neuropathy Treatment for above with Valtrex; 06/26/2020 Generalize weakness--improved. Hypoxia, mild (ABG) Query depression Chronic Lung CA with brain mets DHF, 2D echo 09/2018 LVEF 55-60%/grade I diastolic dysfunction CAD/PCI; NSTEMI COPD CKD stage III Migraine GREEN GERD BPH Hypothyroid Obesity Plan: Continue vancomycin; levofloxacin orally O2 therapy, keep saturation > 90% IVF as needed ADA diet with sliding scale; heart healthy. Social work consult re: SNF RT with O2 therapy as needed. Resume PT/OT pre DC on 06/30/2020 Recheck CBC, CMP, C-reactive protein in the morning. DVT prophylaxis NEEDS SNF PLACEMENT Length of stay greater than 96 hours secondary to treatment of possible multifocal pneumonia.
[2020-07-06] MEDS: Montelukast 10 MG Tab PO SCH (21:34)
[2020-07-07] MEDS: Vancomycin 1 GM, Vancomycin 500 MG in Sodium Chloride 0.9% 500 ML IV SCH ×2 (01:36→18:06)
[2020-07-07] MEDS: Budesonide 0.25 MG/2 ML Neb Susp INH SCH ×2 (05:29→20:33)
[2020-07-07] MEDS: Tiotropium Bromide 4 GM Inhalation Spray (2.5mcg/1 dose; 10 doses) INH SCH (05:29)
[2020-07-07] MEDS: Arformoterol 15 MCG/2 ML Neb Soln INH SCH ×2 (05:29→20:33)
[2020-07-07] MEDS: Insulin Lispro 100 Units/ML 3 ML Vial SUBCUT SCH ×4 (06:38→21:07)
[2020-07-07] MEDS ORDERED: 50% Dextrose in Water 50 ML Syringe IV PRN (09:28)
[2020-07-07] MEDS: Saccharomyces Boulardii (Probiotic) 250 MG Cap PO SCH (09:45)
[2020-07-07] MEDS: Gabapentin 100 MG Cap PO SCH ×2 (09:45→21:05)
[2020-07-07] MEDS: Tamsulosin 0.4 MG Cap.ER PO SCH (09:45)
[2020-07-07] MEDS: Aspirin 81 MG Tab.EC PO SCH (09:46)
[2020-07-07] MEDS: Pantoprazole 40 MG Tab.CR PO SCH (09:46)
[2020-07-07] MEDS: Metoprolol Tartrate 50 MG Tab PO SCH ×2 (09:46→21:05)
[2020-07-07] MEDS: Rosuvastatin 10 MG Tab PO SCH (09:46)
[2020-07-07] MEDS: Furosemide 20 MG Tab PO SCH (09:46)
[2020-07-07] MEDS: Levothyroxine 50 MCG Tab PO SCH (09:46)
[2020-07-07] MEDS: Clopidogrel 75 MG Tab PO SCH (09:46)
[2020-07-07] MEDS: guaiFENesin 600 MG Tab.ER PO SCH ×2 (09:46→21:04)
[2020-07-07] MEDS: Insulin Glarg,Human.Rec.Analog 100 Unit/ML SUBCUT SCH ×2 (09:47→11:05)
[2020-07-07] MEDS: Diphenhydramine/Lidocaine/MagAl/Simethicone 119 ML Bottle PO SCH ×4 (09:47→21:03)
[2020-07-07] MEDS: Dexamethasone 4 MG Tab PO SCH (09:47)
[2020-07-07] MEDS: Isosorbide Mononitrate 60 MG Tab.ER PO SCH (09:47)
[2020-07-07] MEDS: Fluticasone Propionate Nasal Spray 16 GM Bottle NASBOTH SCH (09:49)
[2020-07-07] MEDS: Carboxymethylcellulose Sodium 1% Ophth Gel 15 ML Bottle EYEBOTH SCH ×5 (09:49→21:13)
--- NOTE | 2020-07-07 11:56 | PCM.PN ---
- General Info Date of Service: 07/07/20 Admission Dx/Problem (Free Text): Admission Diagnosis/Problem Admission Diagnosis/Problem Hypoxia Subjective Update: Difficulty sleeping. Anxious as patients. Patient is on dexamethasone prescribed by oncologist for his metastatic lung cancer to his brain. Patient states he also has difficulty when he feels anxious. Functional Status: Reports: Pain Controlled - Review of Systems General: Reports: No Symptoms HEENT: Reports: No Symptoms Pulmonary: Reports: No Symptoms Cardiovascular: Reports: No Symptoms Genitourinary: Reports: No Symptoms Neurological: Reports: Confusion (Last night, currently appropriate) Psychiatric: Reports: No Symptoms - Patient Data Vitals - Most Recent: Last Vital Signs Temp 98.2 F 07/07/20 08:06 Pulse 83 07/07/20 09:46 Resp 20 07/07/20 08:06 BP 151/65 H 07/07/20 09:46 Pulse Ox 94 L 07/07/20 08:06 Weight - Most Recent: 233 lb 4.8 oz I&O - Last 24 Hours: Intake & Output 07/06/20 07/07/20 07/07/20 22:59 06:59 14:59 Intake Total 1300 1000 360 Output Total 1075 1350 Balance 225 -350 360 Lab Results Last 24 Hours: Laboratory Results - last 24 hr 07/06/20 07/06/20 07/06/20 Range/Units 12:03 17:39 20:56 WBC (4.23-9.07) K/mm3 RBC (4.63-6.08) M/mm3 Hgb (13.7-17.5) gm/dl Hct (40.1-51.0) % MCV (79.0-92.2) fl MCH (25.7-32.2) pg MCHC (32.2-35.5) g/dl RDW Std Deviation (35.1-43.9) fL Plt Count (163-337) K/mm3 MPV (9.4-12.3) fl Neut % (Auto) (34.0-67.9) % Lymph % (Auto) (21.8-53.1) % [place] % (Auto) (5.3-12.2) % Eos % (Auto) (0.8-7.0) Baso % (Auto) (0.1-1.2) % Neut # (Auto) (1.78-5.38) K/mm3 Lymph # (Auto) (1.32-3.57) K/mm3 [place] # (Auto) (0.30-0.82) K/mm3 Eos # (Auto) (0.04-0.54) K/mm3 Baso # (Auto) (0.01-0.08) K/mm3 Manual Slide Review Sodium (136-145) mEq/L Potassium (3.5-5.1) mEq/L Chloride (98-107) mEq/L Carbon Dioxide (21-32) mEq/L Anion Gap (5-15) BUN (7-18) mg/dL Creatinine (0.7-1.3) mg/dL Est Cr Clr Drug Dosing mL/min Estimated GFR (MDRD) (>60) mL/min BUN/Creatinine Ratio (14-18) Glucose (83-115) mg/dL POC Glucose 239 H 361 H 235 H (83-110) mg/dL Calcium (8.5-10.1) mg/dL Total Bilirubin (0.2-1.0) mg/dL AST (15-37) U/L ALT (16-63) U/L Alkaline Phosphatase (46-116) U/L C-Reactive Protein (<1.0) mg/dL Total Protein (6.4-8.2) g/dl Albumin (3.4-5.0) g/dl Globulin gm/dL Albumin/Globulin Ratio (1-2) Vancomycin Trough (10.0-20.0) 07/07/20 07/07/20 07/07/20 Range/Units 00:45 05:01 09:45 WBC 11.77 H (4.23-9.07) K/mm3 RBC 2.64 L (4.63-6.08) M/mm3 Hgb 8.2 L (13.7-17.5) gm/dl Hct 26.4 L (40.1-51.0) % MCV 100.0 H (79.0-92.2) fl MCH 31.1 (25.7-32.2) pg MCHC 31.1 L (32.2-35.5) g/dl RDW Std Deviation 53.8 H (35.1-43.9) fL Plt Count 131 L (163-337) K/mm3 MPV 9.9 (9.4-12.3) fl Neut % (Auto) 90.7 H (34.0-67.9) % Lymph % (Auto) 4.2 L (21.8-53.1) % [place] % (Auto) 3.5 L (5.3-12.2) % Eos % (Auto) 0.2 L (0.8-7.0) Baso % (Auto) 0.1 (0.1-1.2) % Neut # (Auto) 10.69 H (1.78-5.38) K/mm3 Lymph # (Auto) 0.49 L (1.32-3.57) K/mm3 [place] # (Auto) 0.41 (0.30-0.82) K/mm3 Eos # (Auto) 0.02 L (0.04-0.54) K/mm3 Baso # (Auto) 0.01 (0.01-0.08) K/mm3 Manual Slide Review Abnormal smear Sodium (136-145) mEq/L Potassium (3.5-5.1) mEq/L Chloride (98-107) mEq/L Carbon Dioxide (21-32) mEq/L Anion Gap (5-15) BUN (7-18) mg/dL Creatinine (0.7-1.3) mg/dL Est Cr Clr Drug Dosing mL/min Estimated GFR (MDRD) (>60) mL/min BUN/Creatinine Ratio (14-18) Glucose (83-115) mg/dL POC Glucose 89 (83-110) mg/dL Calcium (8.5-10.1) mg/dL Total Bilirubin (0.2-1.0) mg/dL AST (15-37) U/L ALT (16-63) U/L Alkaline Phosphatase (46-116) U/L C-Reactive Protein (<1.0) mg/dL Total Protein (6.4-8.2) g/dl Albumin (3.4-5.0) g/dl Globulin gm/dL Albumin/Globulin Ratio (1-2) Vancomycin Trough 17.9 (10.0-20.0) 07/07/20 07/07/20 Range/Units 09:45 11:11 WBC (4.23-9.07) K/mm3 RBC (4.63-6.08) M/mm3 Hgb (13.7-17.5) gm/dl Hct (40.1-51.0) % MCV (79.0-92.2) fl MCH (25.7-32.2) pg MCHC (32.2-35.5) g/dl RDW Std Deviation (35.1-43.9) fL Plt Count (163-337) K/mm3 MPV (9.4-12.3) fl Neut % (Auto) (34.0-67.9) % Lymph % (Auto) (21.8-53.1) % [place] % (Auto) (5.3-12.2) % Eos % (Auto) (0.8-7.0) Baso % (Auto) (0.1-1.2) % Neut # (Auto) (1.78-5.38) K/mm3 Lymph # (Auto) (1.32-3.57) K/mm3 [place] # (Auto) (0.30-0.82) K/mm3 Eos # (Auto) (0.04-0.54) K/mm3 Baso # (Auto) (0.01-0.08) K/mm3 Manual Slide Review Sodium 133 L (136-145) mEq/L Potassium 4.3 (3.5-5.1) mEq/L Chloride 98 (98-107) mEq/L Carbon Dioxide 31 (21-32) mEq/L Anion Gap 8.3 (5-15) BUN 28 H (7-18) mg/dL Creatinine 1.3 (0.7-1.3) mg/dL Est Cr Clr Drug Dosing 51.22 mL/min Estimated GFR (MDRD) 53 (>60) mL/min BUN/Creatinine Ratio 21.5 H (14-18) Glucose 239 H (83-115) mg/dL POC Glucose 231 H (83-110) mg/dL Calcium 8.4 L (8.5-10.1) mg/dL Total Bilirubin 0.7 (0.2-1.0) mg/dL AST 9 L (15-37) U/L ALT 24 (16-63) U/L Alkaline Phosphatase 63 (46-116) U/L C-Reactive Protein 4.8 H* (<1.0) mg/dL Total Protein 5.4 L (6.4-8.2) g/dl Albumin 2.1 L (3.4-5.0) g/dl Globulin 3.3 gm/dL Albumin/Globulin Ratio 0.6 L (1-2) Vancomycin Trough (10.0-20.0) Med Orders - Current: Current Medications Albuterol (Proventil Hfa) 0 gm INH QID PRN PRN Reason: Shortness of Breath Arformoterol Tartrate (Brovana) 15 mcg INH BIDRT [facility] Last Admin: 07/07/20 05:29 Dose: 15 mcg Documented by: Artificial Tears (Refresh Liquigel 1%) 0 ml EYEBOTH QID [facility] Last Admin: 07/07/20 09:55 Dose: Not Given Documented by: Aspirin (Halfprin) 81 mg PO DAILY [facility] Last Admin: 07/07/20 09:46 Dose: 81 mg Documented by: Benzonatate (Tessalon Perles) 200 mg PO Q4HR PRN PRN Reason: Cough Budesonide (Pulmicort) 0.25 mg INH BIDRT [facility] Last Admin: 07/07/20 05:29 Dose: 0.25 mg Documented by: Calcium Carbonate/Glycine (Tums) 1,000 mg PO DAILY PRN PRN Reason: Heartburn Clopidogrel Bisulfate (Plavix) 75 mg PO DAILY [facility] Last Admin: 07/07/20 09:46 Dose: 75 mg Documented by: Dexamethasone (Dexamethasone) 4 mg PO DAILY [facility] Last Admin: 07/07/20 09:47 Dose: 4 mg Documented by: Dextrose/Water (Dextrose 50% In Water) 50 ml IV ASDIRECTED PRN PRN Reason: Hypoglycemia Diazepam (Valium) 2 mg PO Q6HR PRN PRN Reason: Anxiety Last Admin: 07/06/20 01:08 Dose: 2 mg Documented by: Diphenhydr/Magaldrate/Simeth/Lidoca (First-Mouthwash Blm Susp) 30 ml PO QID [facility] Last Admin: 07/07/20 09:47 Dose: 30 ml Documented by: Enoxaparin Sodium (Lovenox) 40 mg SUBCUT Q24H [facility] Last Admin: 07/06/20 14:55 Dose: 40 mg Documented by: Fluticasone Propionate (Flonase) 0 gm NASBOTH DAILY [facility] Last Admin: 07/07/20 09:49 Dose: 2 spray Documented by: Furosemide (Lasix) 20 mg PO DAILY [facility] Last Admin: 07/07/20 09:46 Dose: 20 mg Documented by: Gabapentin (Neurontin) 100 mg PO BID [facility] Last Admin: 07/07/20 09:45 Dose: 100 mg Documented by: Guaifenesin (Mucinex) 600 mg PO BID [facility] Last Admin: 07/07/20 09:46 Dose: 600 mg Documented by: Vancomycin HCl 1 gm/Vancomycin HCl 500 mg/ Sodium Chloride 500 mls @ 250 mls/hr IV Q18H [facility] Last Admin: 07/07/20 01:36 Dose: 250 mls/hr Documented by: Insulin Glargine (Lantus) 25 unit SUBCUT DAILY [facility] Last Admin: 07/07/20 09:47 Dose: 25 units Documented by: Insulin Glargine (Lantus) 20 unit SUBCUT BEDTIME [facility] Insulin Human Lispro (Humalog) 0 unit SUBCUT QIDACANDBED [facility]; Protocol Last Admin: 07/07/20 06:38 Dose: Not Given Documented by: Isosorbide Mononitrate (Imdur) 120 mg PO DAILY [facility] Last Admin: 07/07/20 09:47 Dose: 120 mg Documented by: Levofloxacin (Levaquin) 750 mg PO Q24H [facility] Last Admin: 07/06/20 12:12 Dose: 750 mg Documented by: Levothyroxine Sodium (Synthroid) 50 mcg PO DAILY [facility] Last Admin: 07/07/20 09:46 Dose: 50 mcg Documented by: Metoprolol Tartrate (Lopressor) 50 mg PO BID [facility] Last Admin: 07/07/20 09:46 Dose: 50 mg Documented by: Montelukast Sodium (Singulair) 10 mg PO BEDTIME [facility] Last Admin: 07/06/20 21:34 Dose: 10 mg Documented by: Nitroglycerin (Nitrostat) 0.4 mg SL ASDIRECTED PRN PRN Reason: Chest Pain Ondansetron HCl (Zofran Odt) 4 mg PO TID PRN PRN Reason: Nausea Pantoprazole Sodium (Protonix) 40 mg PO DAILY [facility] Last Admin: 07/07/20 09:46 Dose: 40 mg Documented by: Promethazine HCl/Codeine (Phenergan With Codeine) 10 ml PO Q8HR PRN PRN Reason: Cough Ranolazine (Ranexa) 500 mg PO BID [facility] Last Admin: 07/07/20 09:46 Dose: 500 mg Documented by: Rosuvastatin Calcium (Crestor) 20 mg PO DAILY [facility] Last Admin: 07/07/20 09:46 Dose: 20 mg Documented by: Saccharomyces Boulardii (Florastor) 500 mg PO DAILY [facility] Last Admin: 07/07/20 09:45 Dose: 500 mg Documented by: Sodium Chloride (Saline Flush) 10 ml FLUSH ASDIRECTED PRN PRN Reason: Keep Vein Open Last Admin: 07/02/20 10:21 Dose: 10 ml Documented by: Tamsulosin HCl (Flomax) 0.8 mg PO DAILY [facility] Last Admin: 07/07/20 09:45 Dose: 0.8 mg Documented by: Tiotropium [place] (Spiriva Respimat) 0 gm INH DAILY@0600 [facility] Last Admin: 07/07/20 05:29 Dose: 4 gm Documented by: Vancomycin HCl (Pharmacy To Dose - Vancomycin) 1 dose .XX ASDIRECTED [facility] Discontinued Medications Budesonide (Pulmicort) 0.25 mg INH BID [facility] Cefdinir (Omnicef) 300 mg PO BID [facility] Stop: 07/05/20 22:30 Last Admin: 07/05/20 20:12 Dose: 300 mg Documented by: Enoxaparin Sodium (Lovenox) 30 mg SUBCUT Q24H [facility] Last Admin: 07/03/20 14:04 Dose: 30 mg Documented by: Glycopyrrolate (Seebri Neohaler) 0 mcg IH BID [place] Glycopyrrolate (Seebri Neohaler) 15.6 mcg IH BIDRT [facility] Last Admin: 07/04/20 06:33 Dose: Not Given Documented by: Vancomycin HCl 2 gm/ Sodium (Chloride) 500 mls @ 250 mls/hr IV ONETIME ONE Stop: 07/05/20 14:59 Last Admin: 07/05/20 13:41 Dose: 250 mls/hr Documented by: Insulin Glargine (Lantus) 25 unit SUBCUT BID [facility] Last Admin: 07/07/20 11:05 Dose: Not Given Documented by: Insulin Human Lispro (Humalog) 10 unit SUBCUT ONETIME ONE Stop: 07/04/20 17:47 Last Admin: 07/04/20 18:11 Dose: 10 units Documented by: Lorazepam (Ativan) 1 mg PO ONETIME ONE Stop: 07/02/20 07:01 Last Admin: 07/02/20 08:24 Dose: 1 mg Documented by: Non-Formulary Medication (Ipratropium) 2 puff INH TID [facility] Last Admin: 07/04/20 00:54 Dose: Not Given Documented by: Tiotropium [place] (Spiriva Respimat) 0 gm INH DAILY [facility] Last Admin: 07/04/20 10:24 Dose: Not Given Documented by: Triamcinolone Acetonide (Triamcinolone Acetonide 0.1% Crm) gm TOP DAILY [facility] Valacyclovir HCl (Valtrex) 1,000 mg PO TID [facility] Last Admin: 07/04/20 10:16 Dose: 1,000 mg Documented by: - Exam Quality Assessment: Supplemental Oxygen (2 L nasal cannula) General: Alert, Oriented HEENT: Pupils Equal, Mucous Membr. Moist/Onycha Neck: Supple Lungs: Normal Respiratory Effort, Rales Cardiovascular: Regular Rate, Regular Rhythm GI/Abdominal Exam: Normal Bowel Sounds, Soft, Non-Tender, No Distention Extremities: Normal Inspection, Normal Range of Motion, Normal Capillary Refill Skin: Warm, Dry, Intact Psy/Mental Status: Alert, Normal Affect, Normal Mood Sepsis Event Note - Evaluation Sepsis Screening Result: No Definite Risk - Focused Exam Vital Signs: Vital Signs Temp Pulse Resp BP Pulse Ox Pulse Ox 07/07/20 09:46 83 151/65 H 07/07/20 08:06 98.2 F 83 20 151/65 H 94 L 07/07/20 05:29 100 07/07/20 04:58 98.1 F 69 20 138/57 L 93 L - Problem List & Annotations (1) Metastatic lung carcinoma SNOMED Code(s): 53079200, 01018585, 510038650 Code(s): C78.00 - SECONDARY MALIGNANT NEOPLASM OF UNSPECIFIED LUNG Status: Chronic Current Visit: Yes Qualifiers: Laterality: unspecified laterality Qualified Code(s): C78.00 - Secondary malignant neoplasm of unspecified lung (2) Metastasis to brain Status: Chronic Current Visit: No (3) Pneumonia SNOMED Code(s): 890689979 Code(s): J18.9 - PNEUMONIA, UNSPECIFIED ORGANISM Status: Acute Priority: High Current Visit: No Qualifiers: Pneumonia type: due to unspecified organism Laterality: left Lung location: lower lobe of lung Qualified Code(s): J18.9 - Pneumonia, unspecified organism - Problem List Review Problem List Initiated/Reviewed/Updated: Yes - My Orders Last 24 Hours: My Active Orders 07/07/20 09:00 Insulin Glarg,Human.Rec.Analog [LantUS] 25 unit SUBCUT DAILY 07/07/20 09:28 Dextrose 50% in Water 50 ml IV ASDIRECTED PRN 07/07/20 09:45 PROCALCITONIN [REF] Routine 07/07/20 10:53 Bladder Scan [RC] ASDIRECTED Communication Order [RC] ASDIRECTED Notify Provider Intake and Out [RC] ASDIRECTED Urinary Catheter Assessment [RC] ASDIRECTED 07/07/20 11:00 Insert Urinary Catheter [OM.PC] ASDIRECTED 07/07/20 21:00 Insulin Glarg,Human.Rec.Analog [LantUS] 20 unit SUBCUT BEDTIME 07/10/20 21:00 CORONAVIRUS COVID-19 TAYLOR [MOLEC] Routine - Plan Plan:: Impression: S/P treatment for possible multifocal PNA (06/26/2020) admission Resp panel--negative CXR on 07/05/2020, LLL infiltrate with small pleural effusion; query previously treated PNA vs HCAP S/P LE cellulitis (Klebsiella) S/P AUTI (Klebsiella) Treated for above with Vancomycin/Rocephin; 06/26/2020 admission S/P Diabetic wound care S/P Herpes Zoster neuropathy Treatment for above with Valtrex; 06/26/2020 Generalize weakness--improved. Hypoxia, mild (ABG) Query depression Chronic Lung CA with brain mets DHF, 2D echo 09/2018 LVEF 55-60%/grade I diastolic dysfunction CAD/PCI; NSTEMI COPD CKD stage III Migraine GREEN GERD BPH Hypothyroid Obesity Plan: Continue vancomycin; levofloxacin orally O2 therapy, keep saturation > 90% ADA diet with sliding scale; heart healthy. Plan for discharge on Saturday after antibiotics to SNF RT with O2 therapy as needed. Currently on 2 L nasal cannula. Resume PT/OT pre DC on 06/30/2020 Recheck CBC, CMP, C-reactive protein in the morning. DVT prophylaxis Length of stay greater than 96 hours secondary to treatment of possible multifocal pneumonia.
[2020-07-07] MEDS: Levofloxacin 750 MG Tab PO SCH (12:47)
[2020-07-07] MEDS: Enoxaparin 40 MG/0.4 ML Syringe SUBCUT SCH (14:14)
[2020-07-07] MEDS ORDERED: Magnesium Hydroxide 400 MG/5 ML Susp 30 ML Cup PO ONE (16:00)
[2020-07-07] MEDS ORDERED: Insulin Glarg,Human.Rec.Analog 100 Unit/ML SUBCUT SCH (21:00)
[2020-07-07] MEDS: Montelukast 10 MG Tab PO SCH (21:05)
[2020-07-08] MEDS: Budesonide 0.25 MG/2 ML Neb Susp INH SCH ×2 (06:00→20:36)
[2020-07-08] MEDS: Tiotropium Bromide 4 GM Inhalation Spray (2.5mcg/1 dose; 10 doses) INH SCH (06:00)
[2020-07-08] MEDS: Arformoterol 15 MCG/2 ML Neb Soln INH SCH ×2 (06:00→20:36)
[2020-07-08] MEDS: Insulin Lispro 100 Units/ML 3 ML Vial SUBCUT SCH ×5 (07:40→21:43)
[2020-07-08] MEDS: Insulin Glarg,Human.Rec.Analog 100 Unit/ML SUBCUT SCH ×2 (09:00→21:42)
[2020-07-08] MEDS ORDERED: Piperacillin/Tazobactam 4.5 GM in Sodium Chloride 0.9% 100 ML IV ONE (09:30)
[2020-07-08] MEDS: Carboxymethylcellulose Sodium 1% Ophth Gel 15 ML Bottle EYEBOTH SCH ×4 (10:04→21:45)
[2020-07-08] MEDS: guaiFENesin 600 MG Tab.ER PO SCH ×2 (10:05→21:45)
[2020-07-08] MEDS: Aspirin 81 MG Tab.EC PO SCH (10:05)
[2020-07-08] MEDS: Diphenhydramine/Lidocaine/MagAl/Simethicone 119 ML Bottle PO SCH ×4 (10:06→21:44)
[2020-07-08] MEDS: Pantoprazole 40 MG Tab.CR PO SCH (10:06)
[2020-07-08] MEDS: Saccharomyces Boulardii (Probiotic) 250 MG Cap PO SCH (10:06)
[2020-07-08] MEDS: Isosorbide Mononitrate 60 MG Tab.ER PO SCH (10:07)
[2020-07-08] MEDS: Gabapentin 100 MG Cap PO SCH ×2 (10:07→21:45)
[2020-07-08] MEDS: Rosuvastatin 10 MG Tab PO SCH (10:08)
[2020-07-08] MEDS: Dexamethasone 4 MG Tab PO SCH (10:08)
[2020-07-08] MEDS: Furosemide 20 MG Tab PO SCH (10:09)
[2020-07-08] MEDS: Clopidogrel 75 MG Tab PO SCH (10:09)
[2020-07-08] MEDS: Metoprolol Tartrate 50 MG Tab PO SCH ×2 (10:09→21:45)
[2020-07-08] MEDS: Levothyroxine 50 MCG Tab PO SCH (10:09)
[2020-07-08] MEDS: Tamsulosin 0.4 MG Cap.ER PO SCH (10:10)
[2020-07-08] MEDS: Fluticasone Propionate Nasal Spray 16 GM Bottle NASBOTH SCH (10:11)
--- NOTE | 2020-07-08 14:10 | PCM.PN ---
- General Info Date of Service: 07/08/20 Admission Dx/Problem (Free Text): Admission Diagnosis/Problem Admission Diagnosis/Problem Hypoxia Subjective Update: Patient states that he is feeling not as good this morning. He did have a blood sugar this morning of 60. It has been consistently going down over the last few mornings and it appears to be partially due to Levaquin. Levaquin is known to cause hypoglycemic events. We did decrease his Lantus in the evening and he did increase his evening intake to 80%. Functional Status: Reports: Pain Controlled - Review of Systems General: Reports: Fatigue HEENT: Reports: No Symptoms Pulmonary: Reports: Cough Cardiovascular: Reports: No Symptoms Gastrointestinal: Reports: No Symptoms Musculoskeletal: Reports: No Symptoms Skin: Reports: No Symptoms Psychiatric: Reports: No Symptoms - Patient Data Vitals - Most Recent: Last Vital Signs Temp 98.6 F 07/08/20 07:54 Pulse 90 07/08/20 10:09 Resp 16 07/08/20 07:54 BP 159/61 H 07/08/20 10:09 Pulse Ox 96 07/08/20 08:30 Weight - Most Recent: 236 lb 11.2 oz I&O - Last 24 Hours: Intake & Output 07/07/20 07/08/20 07/08/20 22:59 06:59 14:59 Intake Total 750 800 Output Total 850 Balance -100 800 Lab Results Last 24 Hours: Laboratory Results - last 24 hr 07/07/20 07/07/20 07/08/20 Range/Units 16:48 20:39 06:42 POC Glucose 165 H 217 H 60 L (83-110) mg/dL Vancomycin Trough (10.0-20.0) 07/08/20 07/08/20 07/08/20 Range/Units 07:25 11:12 12:05 POC Glucose 131 H 123 H (83-110) mg/dL Vancomycin Trough 23.2 H (10.0-20.0) Med Orders - Current: Current Medications Albuterol (Proventil Hfa) 0 gm INH QID PRN PRN Reason: Shortness of Breath Arformoterol Tartrate (Brovana) 15 mcg INH BIDRT [facility] Last Admin: 07/08/20 06:00 Dose: 15 mcg Documented by: Artificial Tears (Refresh Liquigel 1%) 0 ml EYEBOTH QID [facility] Last Admin: 07/08/20 10:04 Dose: 1 drop Documented by: Aspirin (Halfprin) 81 mg PO DAILY [facility] Last Admin: 07/08/20 10:05 Dose: 81 mg Documented by: Benzonatate (Tessalon Perles) 200 mg PO Q4HR PRN PRN Reason: Cough Budesonide (Pulmicort) 0.25 mg INH BIDRT [facility] Last Admin: 07/08/20 06:00 Dose: 0.25 mg Documented by: Calcium Carbonate/Glycine (Tums) 1,000 mg PO DAILY PRN PRN Reason: Heartburn Clopidogrel Bisulfate (Plavix) 75 mg PO DAILY [facility] Last Admin: 07/08/20 10:09 Dose: 75 mg Documented by: Dexamethasone (Dexamethasone) 4 mg PO DAILY [facility] Last Admin: 07/08/20 10:08 Dose: 4 mg Documented by: Dextrose/Water (Dextrose 50% In Water) 50 ml IV ASDIRECTED PRN PRN Reason: Hypoglycemia Diazepam (Valium) 2 mg PO Q6HR PRN PRN Reason: Anxiety Last Admin: 07/06/20 01:08 Dose: 2 mg Documented by: Diphenhydr/Magaldrate/Simeth/Lidoca (First-Mouthwash Blm Susp) 30 ml PO QID [facility] Last Admin: 07/08/20 10:06 Dose: 30 ml Documented by: Enoxaparin Sodium (Lovenox) 40 mg SUBCUT Q24H [facility] Last Admin: 07/07/20 14:14 Dose: 40 mg Documented by: Fluticasone Propionate (Flonase) 0 gm NASBOTH DAILY [facility] Last Admin: 07/08/20 10:11 Dose: 1 spray Documented by: Furosemide (Lasix) 20 mg PO DAILY [facility] Last Admin: 07/08/20 10:09 Dose: 20 mg Documented by: Gabapentin (Neurontin) 100 mg PO BID [facility] Last Admin: 07/08/20 10:07 Dose: 100 mg Documented by: Guaifenesin (Mucinex) 600 mg PO BID [facility] Last Admin: 07/08/20 10:05 Dose: 600 mg Documented by: Piperacillin Sod/Tazobactam (Sod 4.5 gm/ Sodium Chloride) 100 mls @ 25 mls/hr IV Q8H [facility] Vancomycin HCl 1 gm/Vancomycin HCl 500 mg/ Sodium Chloride 500 mls @ 250 mls/hr IV Q24H [facility] Insulin Glargine (Lantus) 25 unit SUBCUT DAILY [facility] Last Admin: 07/08/20 09:00 Dose: 25 units Documented by: Insulin Glargine (Lantus) 20 unit SUBCUT BEDTIME [facility] Last Admin: 07/07/20 21:06 Dose: 20 unit Documented by: Insulin Human Lispro (Humalog) 0 unit SUBCUT QIDACANDBED [facility]; Protocol Last Admin: 07/08/20 12:12 Dose: 2 unit Documented by: Isosorbide Mononitrate (Imdur) 120 mg PO DAILY [facility] Last Admin: 07/08/20 10:07 Dose: 120 mg Documented by: Levothyroxine Sodium (Synthroid) 50 mcg PO DAILY [facility] Last Admin: 07/08/20 10:09 Dose: 50 mcg Documented by: Metoprolol Tartrate (Lopressor) 50 mg PO BID [facility] Last Admin: 07/08/20 10:09 Dose: 50 mg Documented by: Montelukast Sodium (Singulair) 10 mg PO BEDTIME [facility] Last Admin: 07/07/20 21:05 Dose: 10 mg Documented by: Nitroglycerin (Nitrostat) 0.4 mg SL ASDIRECTED PRN PRN Reason: Chest Pain Ondansetron HCl (Zofran Odt) 4 mg PO TID PRN PRN Reason: Nausea Pantoprazole Sodium (Protonix) 40 mg PO DAILY [facility] Last Admin: 07/08/20 10:06 Dose: 40 mg Documented by: Promethazine HCl/Codeine (Phenergan With Codeine) 10 ml PO Q8HR PRN PRN Reason: Cough Ranolazine (Ranexa) 500 mg PO BID [facility] Last Admin: 07/08/20 10:05 Dose: 500 mg Documented by: Rosuvastatin Calcium (Crestor) 20 mg PO DAILY [facility] Last Admin: 07/08/20 10:08 Dose: 20 mg Documented by: Saccharomyces Boulardii (Florastor) 500 mg PO DAILY [facility] Last Admin: 07/08/20 10:06 Dose: 500 mg Documented by: Sodium Chloride (Saline Flush) 10 ml FLUSH ASDIRECTED PRN PRN Reason: Keep Vein Open Last Admin: 07/02/20 10:21 Dose: 10 ml Documented by: Tamsulosin HCl (Flomax) 0.8 mg PO DAILY [facility] Last Admin: 07/08/20 10:10 Dose: 0.8 mg Documented by: Tiotropium [place] (Spiriva Respimat) 0 gm INH DAILY@0600 [facility] Last Admin: 07/08/20 06:00 Dose: 4 gm Documented by: Vancomycin HCl (Pharmacy To Dose - Vancomycin) 1 dose .XX ASDIRECTED [facility] Discontinued Medications Budesonide (Pulmicort) 0.25 mg INH BID [facility] Cefdinir (Omnicef) 300 mg PO BID [facility] Stop: 07/05/20 22:30 Last Admin: 07/05/20 20:12 Dose: 300 mg Documented by: Enoxaparin Sodium (Lovenox) 30 mg SUBCUT Q24H [facility] Last Admin: 07/03/20 14:04 Dose: 30 mg Documented by: Glycopyrrolate (Seebri Neohaler) 0 mcg IH BID [place] Glycopyrrolate (Seebri Neohaler) 15.6 mcg IH BIDRT [facility] Last Admin: 07/04/20 06:33 Dose: Not Given Documented by: Vancomycin HCl 2 gm/ Sodium (Chloride) 500 mls @ 250 mls/hr IV ONETIME ONE Stop: 07/05/20 14:59 Last Admin: 07/05/20 13:41 Dose: 250 mls/hr Documented by: Vancomycin HCl 1 gm/Vancomycin HCl 500 mg/ Sodium Chloride 500 mls @ 250 mls/hr IV Q18H [facility] Last Admin: 07/07/20 18:06 Dose: 250 mls/hr Documented by: Piperacillin Sod/Tazobactam (Sod 4.5 gm/ Sodium Chloride) 100 mls @ 200 mls/hr IV ONETIME ONE Stop: 07/08/20 09:59 Last Admin: 07/08/20 10:04 Dose: 200 mls/hr Documented by: Insulin Glargine (Lantus) 25 unit SUBCUT BID [facility] Last Admin: 07/07/20 11:05 Dose: Not Given Documented by: Insulin Human Lispro (Humalog) 10 unit SUBCUT ONETIME ONE Stop: 07/04/20 17:47 Last Admin: 07/04/20 18:11 Dose: 10 units Documented by: Insulin Human Lispro (Humalog) 0 unit SUBCUT QIDACANDBED [facility]; Protocol Last Admin: 11/13/20 07:40 Dose: Not Given Documented by: Levofloxacin (Levaquin) 750 mg PO Q24H [facility] Last Admin: 07/07/20 12:47 Dose: 750 mg Documented by: Lorazepam (Ativan) 1 mg PO ONETIME ONE Stop: 07/02/20 07:01 Last Admin: 07/02/20 08:24 Dose: 1 mg Documented by: Magnesium Hydroxide (Milk Of Magnesia) 30 ml PO ONETIME ONE Stop: 07/07/20 16:01 Last Admin: 07/07/20 18:05 Dose: 30 ml Documented by: Non-Formulary Medication (Ipratropium) 2 puff INH TID [facility] Last Admin: 07/04/20 00:54 Dose: Not Given Documented by: Tiotropium [place] (Spiriva Respimat) 0 gm INH DAILY [facility] Last Admin: 07/04/20 10:24 Dose: Not Given Documented by: Triamcinolone Acetonide (Triamcinolone Acetonide 0.1% Crm) gm TOP DAILY [facility] Valacyclovir HCl (Valtrex) 1,000 mg PO TID [facility] Last Admin: 07/04/20 10:16 Dose: 1,000 mg Documented by: - Exam Quality Assessment: Supplemental Oxygen (2 L nasal cannula) General: Alert, Oriented HEENT: Pupils Equal, Mucous Membr. Moist/[place] Neck: Supple Lungs: Normal Respiratory Effort, Rales (Bibasilar) Cardiovascular: Regular Rate, Regular Rhythm GI/Abdominal Exam: Normal Bowel Sounds, Soft, Non-Tender, No Distention Extremities: Normal Inspection, Normal Capillary Refill, Pedal Edema (1+) Skin: Warm, Dry, Intact Psy/Mental Status: Alert, Normal Affect, Normal Mood Sepsis Event Note - Evaluation Sepsis Screening Result: No Definite Risk - Focused Exam Vital Signs: Vital Signs Temp Pulse Resp BP Pulse Ox Pulse Ox 07/08/20 10:09 90 159/61 H 07/08/20 08:30 96 07/08/20 07:54 98.6 F 90 16 159/61 H 100 07/08/20 06:02 97 - Problem List & Annotations (1) Metastatic lung carcinoma SNOMED Code(s): 83191540, 92299126, 528252428 Code(s): C78.00 - SECONDARY MALIGNANT NEOPLASM OF UNSPECIFIED LUNG Status: Chronic Current Visit: Yes Qualifiers: Laterality: unspecified laterality Qualified Code(s): C78.00 - Secondary malignant neoplasm of unspecified lung (2) Metastasis to brain Status: Chronic Current Visit: No (3) Pneumonia SNOMED Code(s): 913937745 Code(s): J18.9 - PNEUMONIA, UNSPECIFIED ORGANISM Status: Acute Priority: High Current Visit: No Qualifiers: Pneumonia type: due to unspecified organism Laterality: left Lung l ocation: lower lobe of lung Qualified Code(s): J18.9 - Pneumonia, unspecified organism - Problem List Review Problem List Initiated/Reviewed/Updated: Yes - My Orders Last 24 Hours: My Active Orders 07/07/20 14:08 Wound Care [RC] DAILY 07/07/20 21:00 Insulin Glarg,Human.Rec.Analog [LantUS] 20 unit SUBCUT BEDTIME 07/08/20 11:00 Insulin Lispro [HumaLOG] See Protocol SUBCUT QIDACANDBED 07/08/20 17:30 Piperacillin/Tazobactam [Piperacil-Tazobact] 4.5 gm Sodium Chloride 0.9% [Normal Saline] 100 ml IV Q8H 07/10/20 21:00 CORONAVIRUS COVID-19 TAYLOR [MOLEC] Routine - Plan Plan:: Impression: -S/P treatment for possible multifocal PNA (06/26/2020) admission -Resp panel--negative -CXR on 07/05/2020, LLL infiltrate with small pleural effusion; query previously treated PNA vs HCAP -currently on vancomycin and Levaquin. Levaquin will be stopped secondary to hypoglycemia. -Hypoglycemia: Likely secondary to Levaquin. -S/P LE cellulitis (Klebsiella) -S/P AUTI (Klebsiella) -Treated for above with Vancomycin/Rocephin; 06/26/2020 admission -S/P Diabetic wound care -S/P Herpes Zoster neuropathy -Treatment for above with Valtrex; 06/26/2020 -Generalize weakness--improved. -Hypoxia, mild (ABG) Chronic Lung CA with brain mets DHF, 2D echo 09/2018 LVEF 55-60%/grade I diastolic dysfunction CAD/PCI; NSTEMI COPD CKD stage III Migraine GREEN GERD BPH Hypothyroid Obesity Plan: Continue vancomycin; Stop Levaquin secondary to hypoglycemia Start Zosyn Decreased sliding scale insulin to medium from high dose O2 therapy, keep saturation > 90% ADA diet with sliding scale; heart healthy. Plan for discharge on Saturday after antibiotics to SNF RT with O2 therapy as needed. Currently on 2 L nasal cannula. Resume PT/OT pre DC on 06/30/2020 Recheck CBC, CMP, C-reactive protein in the morning. DVT prophylaxis with Lovenox Length of stay greater than 96 hours secondary to treatment of possible multifocal pneumonia.
[2020-07-08] MEDS: Enoxaparin 40 MG/0.4 ML Syringe SUBCUT SCH (14:18)
[2020-07-08] MEDS ORDERED: Acetaminophen 325 MG Tab PO PRN (14:27)
[2020-07-08] MEDS: Piperacillin/Tazobactam 4.5 GM in Sodium Chloride 0.9% 100 ML IV SCH (18:03)
[2020-07-08] MEDS: Vancomycin 1 GM, Vancomycin 500 MG in Sodium Chloride 0.9% 500 ML IV SCH (21:38)
[2020-07-08] MEDS: Montelukast 10 MG Tab PO SCH (21:45)
[2020-07-09] MEDS: Piperacillin/Tazobactam 4.5 GM in Sodium Chloride 0.9% 100 ML IV SCH ×3 (01:03→17:41)
[2020-07-09] MEDS: Arformoterol 15 MCG/2 ML Neb Soln INH SCH ×2 (05:19→20:14)
[2020-07-09] MEDS: Tiotropium Bromide 4 GM Inhalation Spray (2.5mcg/1 dose; 10 doses) INH SCH (05:20)
[2020-07-09] MEDS: Budesonide 0.25 MG/2 ML Neb Susp INH SCH ×2 (05:20→20:14)
[2020-07-09] MEDS: Insulin Lispro 100 Units/ML 3 ML Vial SUBCUT SCH ×4 (06:59→21:45)
[2020-07-09] MEDS: Fluticasone Propionate Nasal Spray 16 GM Bottle NASBOTH SCH (08:16)
[2020-07-09] MEDS: Diphenhydramine/Lidocaine/MagAl/Simethicone 119 ML Bottle PO SCH (08:16)
[2020-07-09] MEDS: Carboxymethylcellulose Sodium 1% Ophth Gel 15 ML Bottle EYEBOTH SCH ×4 (08:16→21:45)
[2020-07-09] MEDS: Insulin Glarg,Human.Rec.Analog 100 Unit/ML SUBCUT SCH ×2 (08:17→21:44)
[2020-07-09] MEDS: Saccharomyces Boulardii (Probiotic) 250 MG Cap PO SCH (08:18)
[2020-07-09] MEDS: Tamsulosin 0.4 MG Cap.ER PO SCH (08:19)
[2020-07-09] MEDS: Pantoprazole 40 MG Tab.CR PO SCH (08:19)
[2020-07-09] MEDS: Clopidogrel 75 MG Tab PO SCH (08:19)
[2020-07-09] MEDS: Gabapentin 100 MG Cap PO SCH ×2 (08:20→21:45)
[2020-07-09] MEDS: Aspirin 81 MG Tab.EC PO SCH (08:20)
[2020-07-09] MEDS: Rosuvastatin 10 MG Tab PO SCH (08:21)
[2020-07-09] MEDS: Metoprolol Tartrate 50 MG Tab PO SCH ×2 (08:21→21:44)
[2020-07-09] MEDS: Levothyroxine 50 MCG Tab PO SCH (08:22)
[2020-07-09] MEDS: Isosorbide Mononitrate 60 MG Tab.ER PO SCH (08:22)
[2020-07-09] MEDS: Furosemide 20 MG Tab PO SCH (08:23)
[2020-07-09] MEDS: Dexamethasone 4 MG Tab PO SCH (08:23)
[2020-07-09] MEDS: guaiFENesin 600 MG Tab.ER PO SCH (08:23)
--- NOTE | 2020-07-09 11:40 | PCM.PN ---
- General Info Date of Service: 07/09/20 Admission Dx/Problem (Free Text): Admission Diagnosis/Problem Admission Diagnosis/Problem Hypoxia Subjective Update: Patient states that he is not feeling well. He feels that his morning medications are too strong or too high of a dose. He feels more short of breath yet his oxygen saturations are better than at home. Appetite is poor. He also feels dizzy. He had to have the urinary catheter reinserted after they got over 1300 mL of urine out and had to straight cath him again. - Review of Systems General: Reports: Fatigue HEENT: Reports: No Symptoms Pulmonary: Reports: Shortness of Breath Cardiovascular: Reports: No Symptoms Gastrointestinal: Reports: Decreased Appetite Neurological: Reports: Dizziness - Patient Data Vitals - Most Recent: Last Vital Signs Temp 98.2 F 07/09/20 08:14 Pulse 69 07/09/20 08:21 Resp 16 07/09/20 08:14 BP 128/43 L 07/09/20 08:21 Pulse Ox 97 07/09/20 08:14 Weight - Most Recent: 233 lb 8 oz I&O - Last 24 Hours: Intake & Output 07/08/20 07/09/20 07/09/20 22:59 06:59 14:59 Intake Total 620 850 240 Output Total 900 Balance 620 -50 240 Lab Results Last 24 Hours: Laboratory Results - last 24 hr 07/07/20 07/08/20 07/08/20 Range/Units 09:45 12:05 14:36 POC Glucose 121 H (83-110) mg/dL Procalcitonin 0.10 H (<0.10) ng/mL Vancomycin Trough 23.2 H (10.0-20.0) SARS-CoV-2 RNA (TAYLOR) (NEGATIVE) 07/08/20 07/08/20 07/08/20 Range/Units 14:37 17:22 21:41 POC Glucose 119 H 215 H (83-110) mg/dL Procalcitonin (<0.10) ng/mL Vancomycin Trough (10.0-20.0) SARS-CoV-2 RNA (TAYLOR) Negative (NEGATIVE) 07/09/20 Range/Units 06:17 POC Glucose 97 (83-110) mg/dL Procalcitonin (<0.10) ng/mL Vancomycin Trough (10.0-20.0) SARS-CoV-2 RNA (TAYLOR) (NEGATIVE) Michael Results Last 24 Hours: Microbiology 07/08/20 13:00 Anaerobic Blood Culture - Final Blood - Venous 07/08/20 14:37 Influenza Type A Antigen Screen - Final Nasal, Unspecified NEGATIVE INFLUENZA A VIRUS AG REFERENCE RANGE: NEGATIVE Influenza Type B Antigen Screen - Final NEGATIVE INFLUENZA B VIRUS AG REFERENCE RANGE: NEGATIVE Med Orders - Current: Current Medications Acetaminophen (Tylenol) 650 mg PO Q4H PRN PRN Reason: Fever Last Admin: 07/08/20 14:41 Dose: 650 mg Documented by: Albuterol (Proventil Hfa) 0 gm INH QID PRN PRN Reason: Shortness of Breath Arformoterol Tartrate (Brovana) 15 mcg INH BIDRT [facility] Last Admin: 07/09/20 05:19 Dose: 15 mcg Documented by: Artificial Tears (Refresh Liquigel 1%) 0 ml EYEBOTH QID [facility] Last Admin: 07/09/20 08:16 Dose: 1 drop Documented by: Aspirin (Halfprin) 81 mg PO DAILY [facility] Last Admin: 07/09/20 08:20 Dose: 81 mg Documented by: Benzonatate (Tessalon Perles) 200 mg PO Q4HR PRN PRN Reason: Cough Budesonide (Pulmicort) 0.25 mg INH BIDRT [facility] Last Admin: 07/09/20 05:20 Dose: 0.25 mg Documented by: Calcium Carbonate/Glycine (Tums) 1,000 mg PO DAILY PRN PRN Reason: Heartburn Clopidogrel Bisulfate (Plavix) 75 mg PO DAILY [facility] Last Admin: 07/09/20 08:19 Dose: 75 mg Documented by: Dexamethasone (Dexamethasone) 4 mg PO DAILY [facility] Last Admin: 07/09/20 08:23 Dose: 4 mg Documented by: Dextrose/Water (Dextrose 50% In Water) 50 ml IV ASDIRECTED PRN PRN Reason: Hypoglycemia Diazepam (Valium) 2 mg PO Q6HR PRN PRN Reason: Anxiety Last Admin: 07/06/20 01:08 Dose: 2 mg Documented by: Diphenhydr/Magaldrate/Simeth/Lidoca (First-Mouthwash Blm Susp) 30 ml PO QID [facility] Last Admin: 07/09/20 08:16 Dose: 30 ml Documented by: Enoxaparin Sodium (Lovenox) 40 mg SUBCUT Q24H [facility] Last Admin: 07/08/20 14:18 Dose: 40 mg Documented by: Fluticasone Propionate (Flonase) 0 gm NASBOTH DAILY [facility] Last Admin: 07/09/20 08:16 Dose: 1 spray Documented by: Furosemide (Lasix) 20 mg PO DAILY [facility] Last Admin: 07/09/20 08:23 Dose: 20 mg Documented by: Gabapentin (Neurontin) 100 mg PO BID [facility] Last Admin: 07/09/20 08:20 Dose: 100 mg Documented by: Guaifenesin (Mucinex) 600 mg PO BID [facility] Last Admin: 07/09/20 08:23 Dose: 600 mg Documented by: Piperacillin Sod/Tazobactam (Sod 4.5 gm/ Sodium Chloride) 100 mls @ 25 mls/hr IV Q8H [facility] Last Admin: 07/09/20 10:29 Dose: 25 mls/hr Documented by: Vancomycin HCl 1 gm/Vancomycin HCl 500 mg/ Sodium Chloride 500 mls @ 250 mls/hr IV Q24H [facility] Last Admin: 07/08/20 21:38 Dose: 250 mls/hr Documented by: Insulin Glargine (Lantus) 25 unit SUBCUT DAILY [facility] Last Admin: 07/09/20 08:17 Dose: 25 units Documented by: Insulin Glargine (Lantus) 15 unit SUBCUT BEDTIME [facility] Last Admin: 07/08/20 21:42 Dose: 15 units Documented by: Insulin Human Lispro (Humalog) 0 unit SUBCUT QIDACANDBED [facility]; Protocol Last Admin: 07/09/20 06:59 Dose: Not Given Documented by: Isosorbide Mononitrate (Imdur) 120 mg PO DAILY [facility] Last Admin: 07/09/20 08:22 Dose: 120 mg Documented by: Levothyroxine Sodium (Synthroid) 50 mcg PO DAILY [facility] Last Admin: 07/09/20 08:22 Dose: 50 mcg Documented by: Metoprolol Tartrate (Lopressor) 50 mg PO BID [facility] Last Admin: 07/09/20 08:21 Dose: 50 mg Documented by: Montelukast Sodium (Singulair) 10 mg PO BEDTIME [facility] Last Admin: 07/08/20 21:45 Dose: 10 mg Documented by: Nitroglycerin (Nitrostat) 0.4 mg SL ASDIRECTED PRN PRN Reason: Chest Pain Ondansetron HCl (Zofran Odt) 4 mg PO TID PRN PRN Reason: Nausea Pantoprazole Sodium (Protonix) 40 mg PO DAILY [facility] Last Admin: 07/09/20 08:19 Dose: 40 mg Documented by: Promethazine HCl/Codeine (Phenergan With Codeine) 10 ml PO Q8HR PRN PRN Reason: Cough Ranolazine (Ranexa) 500 mg PO BID [facility] Last Admin: 07/09/20 08:22 Dose: 500 mg Documented by: Rosuvastatin Calcium (Crestor) 20 mg PO DAILY [facility] Last Admin: 07/09/20 08:21 Dose: 20 mg Documented by: Saccharomyces Boulardii (Florastor) 500 mg PO DAILY [facility] Last Admin: 07/09/20 08:18 Dose: 500 mg Documented by: Sodium Chloride (Saline Flush) 10 ml FLUSH ASDIRECTED PRN PRN Reason: Keep Vein Open Last Admin: 07/02/20 10:21 Dose: 10 ml Documented by: Tamsulosin HCl (Flomax) 0.8 mg PO DAILY [facility] Last Admin: 07/09/20 08:19 Dose: 0.8 mg Documented by: Tiotropium [place] (Spiriva Respimat) 0 gm INH DAILY@0600 [facility] Last Admin: 07/09/20 05:20 Dose: 4 gm Documented by: Vancomycin HCl (Pharmacy To Dose - Vancomycin) 1 dose .XX ASDIRECTED [facility] Discontinued Medications Budesonide (Pulmicort) 0.25 mg INH BID [facility] Cefdinir (Omnicef) 300 mg PO BID [facility] Stop: 07/05/20 22:30 Last Admin: 07/05/20 20:12 Dose: 300 mg Documented by: Enoxaparin Sodium (Lovenox) 30 mg SUBCUT Q24H [facility] Last Admin: 07/03/20 14:04 Dose: 30 mg Documented by: Glycopyrrolate (Seebri Neohaler) 0 mcg IH BID [place] Glycopyrrolate (Seebri Neohaler) 15.6 mcg IH BIDRT [facility] Last Admin: 07/04/20 06:33 Dose: Not Given Documented by: Vancomycin HCl 2 gm/ Sodium (Chloride) 500 mls @ 250 mls/hr IV ONETIME ONE Stop: 07/05/20 14:59 Last Admin: 07/05/20 13:41 Dose: 250 mls/hr Documented by: Vancomycin HCl 1 gm/Vancomycin HCl 500 mg/ Sodium Chloride 500 mls @ 250 mls/hr IV Q18H [facility] Last Admin: 07/07/20 18:06 Dose: 250 mls/hr Documented by: Piperacillin Sod/Tazobactam (Sod 4.5 gm/ Sodium Chloride) 100 mls @ 200 mls/hr IV ONETIME ONE Stop: 07/08/20 09:59 Last Admin: 07/08/20 10:04 Dose: 200 mls/hr Documented by: Insulin Glargine (Lantus) 25 unit SUBCUT BID [facility] Last Admin: 07/07/20 11:05 Dose: Not Given Documented by: Insulin Glargine (Lantus) 20 unit SUBCUT BEDTIME [facility] Last Admin: 07/07/20 21:06 Dose: 20 unit Documented by: Insulin Human Lispro (Humalog) 10 unit SUBCUT ONETIME ONE Stop: 07/04/20 17:47 Last Admin: 07/04/20 18:11 Dose: 10 units Documented by: Insulin Human Lispro (Humalog) 0 unit SUBCUT QIDACANDBED [facility]; Protocol Last Admin: 07/08/20 15:17 Dose: Not Given Documented by: Levofloxacin (Levaquin) 750 mg PO Q24H [facility] Last Admin: 07/07/20 12:47 Dose: 750 mg Documented by: Lorazepam (Ativan) 1 mg PO ONETIME ONE Stop: 07/02/20 07:01 Last Admin: 07/02/20 08:24 Dose: 1 mg Documented by: Magnesium Hydroxide (Milk Of Magnesia) 30 ml PO ONETIME ONE Stop: 07/07/20 16:01 Last Admin: 07/07/20 18:05 Dose: 30 ml Documented by: Non-Formulary Medication (Ipratropium) 2 puff INH TID [facility] Last Admin: 07/04/20 00:54 Dose: Not Given Documented by: Tiotropium [place] (Spiriva Respimat) 0 gm INH DAILY [facility] Last Admin: 07/04/20 10:24 Dose: Not Given Documented by: Triamcinolone Acetonide (Triamcinolone Acetonide 0.1% Crm) gm TOP DAILY [facility] Valacyclovir HCl (Valtrex) 1,000 mg PO TID [facility] Last Admin: 07/04/20 10:16 Dose: 1,000 mg Documented by: - Exam Quality Assessment: Supplemental Oxygen (Nasal cannula), Urine Catheter General: Alert, Oriented, No Acute Distress HEENT: Pupils Equal Neck: Supple Lungs: Normal Respiratory Effort, Rales Cardiovascular: Regular Rate, Regular Rhythm GI/Abdominal Exam: Normal Bowel Sounds, Soft, Non-Tender, No Distention Extremities: Normal Inspection, Normal Capillary Refill, Pedal Edema (1+) Skin: Warm, Dry, Intact Psy/Mental Status: Depressed Sepsis Event Note - Evaluation Sepsis Screening Result: No Definite Risk - Focused Exam Vital Signs: Vital Signs Temp Temp Pulse Pulse Resp BP BP 07/09/20 08:21 69 128/43 L 07/09/20 08:14 98.2 F 69 16 128/43 L 07/09/20 08:11 98.2 F 68 16 128/43 L 07/09/20 04:48 97.3 F 63 20 111/77 Pulse Ox 07/09/20 08:21 07/09/20 08:14 97 07/09/20 08:11 97 07/09/20 04:48 99 - Problem List & Annotations (1) Metastatic lung carcinoma SNOMED Code(s): 34634552, 69064765, 704496999 Code(s): C78.00 - SECONDARY MALIGNANT NEOPLASM OF UNSPECIFIED LUNG Status: Chronic Current Visit: Yes Qualifiers: Laterality: unspecified laterality Qualified Code(s): C78.00 - Secondary malignant neoplasm of unspecified lung (2) Metastasis to brain Status: Chronic Current Visit: No (3) Pneumonia SNOMED Code(s): 104012215 Code(s): J18.9 - PNEUMONIA, UNSPECIFIED ORGANISM Status: Acute Priority: High Current Visit: No Qualifiers: Pneumonia type: due to unspecified organism Laterality: left Lung location: lower lobe of lung Qualified Code(s): J18.9 - Pneumonia, unspecified organism - Problem List Review Problem List Initiated/Reviewed/Updated: Yes - My Orders Last 24 Hours: My Active Orders 07/08/20 11:00 Insulin Lispro [HumaLOG] See Protocol SUBCUT QIDACANDBED 07/08/20 13:00 CULTURE BLOOD [BC] Stat 07/08/20 13:10 CULTURE BLOOD [BC] Stat 07/08/20 14:27 Acetaminophen [TylenoL] 650 mg PO Q4H PRN 07/08/20 14:30 Isolation [COMM] Routine 07/08/20 14:31 Blood Culture x2 Reflex Set [OM.PC] Stat 07/08/20 17:30 Piperacillin/Tazobactam [Piperacil-Tazobact] 4.5 gm Sodium Chloride 0.9% [Normal Saline] 100 ml IV Q8H 07/08/20 21:00 Insulin Glarg,Human.Rec.Analog [LantUS] 15 unit SUBCUT BEDTIME 07/10/20 21:00 CORONAVIRUS COVID-19 TAYLOR [MOLEC] Routine - Plan Plan:: Impression: -Pneumoniachest x-ray shows concern for increasing multifocal peripheral airspace opacity. Patient did have a fever 2 nights ago and Zosyn was added and Levaquin was stopped secondary to hypoglycemia. -Resp panel--negative -CXR on 07/09/2020, increasing multifocal peripheral airspace opacity concerning for possible pneumonia. Consider atypical/viral etiologies -Hypoglycemiaimproved: Likely secondary to Levaquin. -Urinary retention -General malaise and fatigue: Patient is very concerned about his morning medications being to strong. -S/P LE cellulitis (Klebsiella) -S/P AUTI (Klebsiella) -Treated for above with Vancomycin/Rocephin; 06/26/2020 admission -S/P Diabetic wound care -S/P Herpes Zoster neuropathy -Treatment for above with Valtrex; 06/26/2020 -Hypoxia, mildon 2 L nasal cannula Chronic Lung CA with brain mets -currently complaining of dizziness DHF, 2D echo 09/2018 LVEF 55-60%/grade I diastolic dysfunction CAD/PCI; NSTEMI COPD CKD stage III Migraine GREEN GERD BPH Hypothyroid Obesity Plan: Continue vancomycin; Continue Zosyn Adjust patient's medications and try to stop any that were not necessary. I also changed some of his medications from morning to night. We will follow up to see how this helps. Decreased sliding scale insulin to medium from high dose O2 therapy, keep saturation > 90% ADA diet with sliding scale; heart healthy. Plan for discharge on Saturday after antibiotics to SNF RT with O2 therapy as needed. Currently on 2 L nasal cannula. Resume PT/OT pre DC on 06/30/2020 Recheck CBC, CMP, C-reactive protein in the morning. DVT prophylaxis with Lovenox Length of stay greater than 96 hours secondary to treatment of possible multifocal pneumonia.
[2020-07-09] MEDS: Enoxaparin 40 MG/0.4 ML Syringe SUBCUT SCH (14:09)
[2020-07-09] MEDS ORDERED: Clopidogrel 75 MG Tab PO SCH (21:00)
[2020-07-09] MEDS: Vancomycin 1 GM, Vancomycin 500 MG in Sodium Chloride 0.9% 500 ML IV SCH (21:43)
[2020-07-09] MEDS: Montelukast 10 MG Tab PO SCH (21:45)
[2020-07-10] MEDS: Piperacillin/Tazobactam 4.5 GM in Sodium Chloride 0.9% 100 ML IV SCH ×3 (02:01→17:45)
[2020-07-10] MEDS: Budesonide 0.25 MG/2 ML Neb Susp INH SCH ×2 (05:38→20:04)
[2020-07-10] MEDS: Tiotropium Bromide 4 GM Inhalation Spray (2.5mcg/1 dose; 10 doses) INH SCH (05:38)
[2020-07-10] MEDS: Arformoterol 15 MCG/2 ML Neb Soln INH SCH ×2 (05:39→20:05)
[2020-07-10] MEDS: Insulin Lispro 100 Units/ML 3 ML Vial SUBCUT SCH ×5 (06:46→21:31)
[2020-07-10] MEDS: Carboxymethylcellulose Sodium 1% Ophth Gel 15 ML Bottle EYEBOTH SCH ×4 (08:11→20:28)
[2020-07-10] MEDS: Fluticasone Propionate Nasal Spray 16 GM Bottle NASBOTH SCH (08:11)
[2020-07-10] MEDS: Metoprolol Tartrate 50 MG Tab PO SCH ×2 (08:12→20:27)
[2020-07-10] MEDS: Levothyroxine 50 MCG Tab PO SCH (08:12)
[2020-07-10] MEDS: Aspirin 81 MG Tab.EC PO SCH (08:12)
[2020-07-10] MEDS: Dexamethasone 4 MG Tab PO SCH (08:12)
[2020-07-10] MEDS: Pantoprazole 40 MG Tab.CR PO SCH (08:12)
[2020-07-10] MEDS: Isosorbide Mononitrate 60 MG Tab.ER PO SCH (08:12)
[2020-07-10] MEDS: Saccharomyces Boulardii (Probiotic) 250 MG Cap PO SCH (08:12)
[2020-07-10] MEDS: Gabapentin 100 MG Cap PO SCH ×2 (08:12→20:27)
[2020-07-10] MEDS: Insulin Glarg,Human.Rec.Analog 100 Unit/ML SUBCUT SCH ×2 (08:13→20:28)
[2020-07-10] MEDS: Furosemide 20 MG Tab PO SCH (08:13)
[2020-07-10] MEDS ORDERED: Sodium Chloride 0.9% 250 ML IV SCH (10:00)
[2020-07-10] MEDS ORDERED: Furosemide 20 MG/2 ML VIAL IVPUSH ONE (13:00)
[2020-07-10] MEDS: Enoxaparin 40 MG/0.4 ML Syringe SUBCUT SCH (13:56)
--- NOTE | 2020-07-10 16:34 | PCM.PN ---
- General Info Date of Service: 07/10/20 Admission Dx/Problem (Free Text): Admission Diagnosis/Problem Admission Diagnosis/Problem Hypoxia Subjective Update: Patient continues to have fatigue and malaise. Hemoglobin did come back at 7.0 which would explain his increasing fatigue. He is on his home amount of oxygen. - Review of Systems General: Reports: Fatigue HEENT: Reports: No Symptoms Pulmonary: Reports: Shortness of Breath Cardiovascular: Reports: No Symptoms Gastrointestinal: Reports: No Symptoms Musculoskeletal: Reports: No Symptoms - Patient Data Vitals - Most Recent: Last Vital Signs Temp 98.0 F 07/10/20 15:15 Pulse 66 07/10/20 15:15 Resp 20 07/10/20 15:15 BP 122/52 L 07/10/20 15:15 Pulse Ox 99 07/10/20 15:15 Weight - Most Recent: 234 lb 6.4 oz I&O - Last 24 Hours: Intake & Output 07/10/20 07/10/20 07/10/20 06:59 14:59 22:59 Intake Total 900 600 195 Output Total 800 1450 Balance 100 600 -1255 Lab Results Last 24 Hours: Laboratory Results - last 24 hr 07/09/20 07/09/20 07/10/20 Range/Units 16:59 20:30 04:45 WBC 6.78 (4.23-9.07) K/mm3 RBC 2.29 L (4.63-6.08) M/mm3 Hgb 7.0 L* (13.7-17.5) gm/dl Hct 23.1 L (40.1-51.0) % MCV 100.9 H (79.0-92.2) fl MCH 30.6 (25.7-32.2) pg MCHC 30.3 L (32.2-35.5) g/dl RDW Std Deviation 54.7 H (35.1-43.9) fL Plt Count 140 L (163-337) K/mm3 MPV 10.4 (9.4-12.3) fl Neut % (Auto) 83.6 H (34.0-67.9) % Lymph % (Auto) 8.1 L (21.8-53.1) % [place] % (Auto) 5.8 (5.3-12.2) % Eos % (Auto) 0.3 L (0.8-7.0) Baso % (Auto) 0.1 (0.1-1.2) % Neut # (Auto) 5.67 H (1.78-5.38) K/mm3 Lymph # (Auto) 0.55 L (1.32-3.57) K/mm3 [place] # (Auto) 0.39 (0.30-0.82) K/mm3 Eos # (Auto) 0.02 L (0.04-0.54) K/mm3 Baso # (Auto) 0.01 (0.01-0.08) K/mm3 Manual Slide Review Abnormal smear Sodium (136-145) mEq/L Potassium (3.5-5.1) mEq/L Chloride (98-107) mEq/L Carbon Dioxide (21-32) mEq/L Anion Gap (5-15) BUN (7-18) mg/dL Creatinine (0.7-1.3) mg/dL Est Cr Clr Drug Dosing mL/min Estimated GFR (MDRD) (>60) mL/min BUN/Creatinine Ratio (14-18) Glucose (83-115) mg/dL POC Glucose 299 H 314 H (83-110) mg/dL Calcium (8.5-10.1) mg/dL Phosphorus (2.6-4.7) mg/dL Magnesium (1.8-2.4) mg/dl Total Bilirubin (0.2-1.0) mg/dL AST (15-37) U/L ALT (16-63) U/L Alkaline Phosphatase (46-116) U/L C-Reactive Protein (<1.0) mg/dL Total Protein (6.4-8.2) g/dl Albumin (3.4-5.0) g/dl Globulin gm/dL Albumin/Globulin Ratio (1-2) Blood Type Gel Antibody Screen Crossmatch 07/10/20 07/10/20 07/10/20 Range/Units 04:45 04:45 05:46 WBC (4.23-9.07) K/mm3 RBC (4.63-6.08) M/mm3 Hgb (13.7-17.5) gm/dl Hct (40.1-51.0) % MCV (79.0-92.2) fl MCH (25.7-32.2) pg MCHC (32.2-35.5) g/dl RDW Std Deviation (35.1-43.9) fL Plt Count (163-337) K/mm3 MPV (9.4-12.3) fl Neut % (Auto) (34.0-67.9) % Lymph % (Auto) (21.8-53.1) % [place] % (Auto) (5.3-12.2) % Eos % (Auto) (0.8-7.0) Baso % (Auto) (0.1-1.2) % Neut # (Auto) (1.78-5.38) K/mm3 Lymph # (Auto) (1.32-3.57) K/mm3 [place] # (Auto) (0.30-0.82) K/mm3 Eos # (Auto) (0.04-0.54) K/mm3 Baso # (Auto) (0.01-0.08) K/mm3 Manual Slide Review Sodium 137 (136-145) mEq/L Potassium 3.5 (3.5-5.1) mEq/L Chloride 101 (98-107) mEq/L Carbon Dioxide 34 H (21-32) mEq/L Anion Gap 5.5 (5-15) BUN 27 H (7-18) mg/dL Creatinine 1.4 H (0.7-1.3) mg/dL Est Cr Clr Drug Dosing 47.56 mL/min Estimated GFR (MDRD) 49 (>60) mL/min BUN/Creatinine Ratio 19.3 H (14-18) Glucose 85 (83-115) mg/dL POC Glucose 118 H (83-110) mg/dL Calcium 7.8 L (8.5-10.1) mg/dL Phosphorus 3.7 (2.6-4.7) mg/dL Magnesium 2.0 (1.8-2.4) mg/dl Total Bilirubin 0.7 (0.2-1.0) mg/dL AST 14 L (15-37) U/L ALT 22 (16-63) U/L Alkaline Phosphatase 45 L (46-116) U/L C-Reactive Protein 1.8 H* (<1.0) mg/dL Total Protein 5.0 L (6.4-8.2) g/dl Albumin 1.9 L (3.4-5.0) g/dl Globulin 3.1 gm/dL Albumin/Globulin Ratio 0.6 L (1-2) Blood Type A NEGATIVE Gel Antibody Screen Negative Crossmatch See Detail 07/10/20 Range/Units 11:46 WBC (4.23-9.07) K/mm3 RBC (4.63-6.08) M/mm3 Hgb (13.7-17.5) gm/dl Hct (40.1-51.0) % MCV (79.0-92.2) fl MCH (25.7-32.2) pg MCHC (32.2-35.5) g/dl RDW Std Deviation (35.1-43.9) fL Plt Count (163-337) K/mm3 MPV (9.4-12.3) fl Neut % (Auto) (34.0-67.9) % Lymph % (Auto) (21.8-53.1) % [place] % (Auto) (5.3-12.2) % Eos % (Auto) (0.8-7.0) Baso % (Auto) (0.1-1.2) % Neut # (Auto) (1.78-5.38) K/mm3 Lymph # (Auto) (1.32-3.57) K/mm3 [place] # (Auto) (0.30-0.82) K/mm3 Eos # (Auto) (0.04-0.54) K/mm3 Baso # (Auto) (0.01-0.08) K/mm3 Manual Slide Review Sodium (136-145) mEq/L Potassium (3.5-5.1) mEq/L Chloride (98-107) mEq/L Carbon Dioxide (21-32) mEq/L Anion Gap (5-15) BUN (7-18) mg/dL Creatinine (0.7-1.3) mg/dL Est Cr Clr Drug Dosing mL/min Estimated GFR (MDRD) (>60) mL/min BUN/Creatinine Ratio (14-18) Glucose (83-115) mg/dL POC Glucose 151 H (83-110) mg/dL Calcium (8.5-10.1) mg/dL Phosphorus (2.6-4.7) mg/dL Magnesium (1.8-2.4) mg/dl Total Bilirubin (0.2-1.0) mg/dL AST (15-37) U/L ALT (16-63) U/L Alkaline Phosphatase (46-116) U/L C-Reactive Protein (<1.0) mg/dL Total Protein (6.4-8.2) g/dl Albumin (3.4-5.0) g/dl Globulin gm/dL Albumin/Globulin Ratio (1-2) Blood Type Gel Antibody Screen Crossmatch Michael Results Last 24 Hours: Microbiology 07/08/20 13:10 Aerobic Blood Culture - Preliminary Blood - Venous - Lab Draw NO GROWTH AFTER 2 DAYS Anaerobic Blood Culture - Preliminary NO GROWTH AFTER 2 DAYS 07/08/20 13:00 Aerobic Blood Culture - Preliminary Blood - Venous NO GROWTH AFTER 2 DAYS Anaerobic Blood Culture - Final Med Orders - Current: Current Medications Acetaminophen (Tylenol) 650 mg PO Q4H PRN PRN Reason: Fever Last Admin: 07/08/20 14:41 Dose: 650 mg Documented by: Albuterol (Proventil Hfa) 0 gm INH QID PRN PRN Reason: Shortness of Breath Arformoterol Tartrate (Brovana) 15 mcg INH BIDRT [facility] Last Admin: 07/10/20 05:39 Dose: Not Given Documented by: Artificial Tears (Refresh Liquigel 1%) 0 ml EYEBOTH QID [facility] Last Admin: 07/10/20 13:56 Dose: 1 drop Documented by: Aspirin (Halfprin) 81 mg PO DAILY [facility] Last Admin: 07/10/20 08:12 Dose: 81 mg Documented by: Budesonide (Pulmicort) 0.25 mg INH BIDRT [facility] Last Admin: 07/10/20 05:38 Dose: 0.25 mg Documented by: Clopidogrel Bisulfate (Plavix) 75 mg PO BEDTIME [facility] Dexamethasone (Dexamethasone) 4 mg PO DAILY [facility] Last Admin: 07/10/20 08:12 Dose: 4 mg Documented by: Dextrose/Water (Dextrose 50% In Water) 50 ml IV ASDIRECTED PRN PRN Reason: Hypoglycemia Diazepam (Valium) 2 mg PO Q6HR PRN PRN Reason: Anxiety Last Admin: 07/06/20 01:08 Dose: 2 mg Documented by: Enoxaparin Sodium (Lovenox) 40 mg SUBCUT Q24H [facility] Last Admin: 07/10/20 13:56 Dose: 40 mg Documented by: Fluticasone Propionate (Flonase) 0 gm NASBOTH DAILY [facility] Last Admin: 07/10/20 08:11 Dose: 1 spray Documented by: Furosemide (Lasix) 20 mg PO DAILY [facility] Last Admin: 07/10/20 08:13 Dose: 20 mg Documented by: Gabapentin (Neurontin) 100 mg PO BID [facility] Last Admin: 07/10/20 08:12 Dose: 100 mg Documented by: Piperacillin Sod/Tazobactam (Sod 4.5 gm/ Sodium Chloride) 100 mls @ 25 mls/hr IV Q8H [facility] Last Admin: 07/10/20 08:58 Dose: 25 mls/hr Documented by: Vancomycin HCl 1 gm/Vancomycin HCl 500 mg/ Sodium Chloride 500 mls @ 250 mls/hr IV Q24H [facility] Last Admin: 07/09/20 21:43 Dose: 250 mls/hr Documented by: Sodium Chloride (Normal Saline) 250 mls @ 50 mls/hr IV ASDIRECTED [facility] Insulin Glargine (Lantus) 25 unit SUBCUT DAILY [facility] Last Admin: 07/10/20 08:13 Dose: 25 units Documented by: Insulin Glargine (Lantus) 15 unit SUBCUT BEDTIME [facility] Last Admin: 07/09/20 21:44 Dose: 15 units Documented by: Insulin Human Lispro (Humalog) 0 unit SUBCUT QIDACANDBED [facility]; Protocol Last Admin: 07/10/20 12:30 Dose: 2 unit Documented by: Isosorbide Mononitrate (Imdur) 120 mg PO DAILY [facility] Last Admin: 07/10/20 08:12 Dose: 120 mg Documented by: Levothyroxine Sodium (Synthroid) 50 mcg PO DAILY [facility] Last Admin: 07/10/20 08:12 Dose: 50 mcg Documented by: Metoprolol Tartrate (Lopressor) 50 mg PO BID [facility] Last Admin: 07/10/20 08:12 Dose: 50 mg Documented by: Montelukast Sodium (Singulair) 10 mg PO BEDTIME [facility] Last Admin: 07/09/20 21:45 Dose: 10 mg Documented by: Nitroglycerin (Nitrostat) 0.4 mg SL ASDIRECTED PRN PRN Reason: Chest Pain Ondansetron HCl (Zofran Odt) 4 mg PO TID PRN PRN Reason: Nausea Pantoprazole Sodium (Protonix) 40 mg PO DAILY [facility] Last Admin: 07/10/20 08:12 Dose: 40 mg Documented by: Promethazine HCl/Codeine (Phenergan With Codeine) 10 ml PO Q8HR PRN PRN Reason: Cough Ranolazine (Ranexa) 500 mg PO BID [facility] Last Admin: 07/10/20 08:12 Dose: 500 mg Documented by: Rosuvastatin Calcium (Crestor) 20 mg PO BEDTIME [facility] Saccharomyces Boulardii (Florastor) 500 mg PO DAILY [facility] Last Admin: 07/10/20 08:12 Dose: 500 mg Documented by: Sodium Chloride (Saline Flush) 10 ml FLUSH ASDIRECTED PRN PRN Reason: Keep Vein Open Last Admin: 07/02/20 10:21 Dose: 10 ml Documented by: Tiotropium [place] (Spiriva Respimat) 0 gm INH DAILY@0600 [facility] Last Admin: 07/10/20 05:38 Dose: 4 gm Documented by: Vancomycin HCl (Pharmacy To Dose - Vancomycin) 1 dose .XX ASDIRECTED [facility] Discontinued Medications Benzonatate (Tessalon Perles) 200 mg PO Q4HR PRN PRN Reason: Cough Budesonide (Pulmicort) 0.25 mg INH BID [facility] Calcium Carbonate/Glycine (Tums) 1,000 mg PO DAILY PRN PRN Reason: Heartburn Cefdinir (Omnicef) 300 mg PO BID [facility] Stop: 07/05/20 22:30 Last Admin: 07/05/20 20:12 Dose: 300 mg Documented by: Clopidogrel Bisulfate (Plavix) 75 mg PO DAILY [facility] Last Admin: 07/09/20 08:19 Dose: 75 mg Documented by: Clopidogrel Bisulfate (Plavix) 75 mg PO BEDTIME [facility] Diphenhydr/Magaldrate/Simeth/Lidoca (First-Mouthwash Blm Susp) 30 ml PO QID [facility] Last Admin: 07/09/20 08:16 Dose: 30 ml Documented by: Enoxaparin Sodium (Lovenox) 30 mg SUBCUT Q24H [facility] Last Admin: 07/03/20 14:04 Dose: 30 mg Documented by: Furosemide (Lasix) 20 mg IVPUSH ONETIME ONE Stop: 07/10/20 13:01 Last Admin: 07/10/20 13:56 Dose: 20 mg Documented by: Glycopyrrolate (Seebri Neohaler) 0 mcg IH BID [place] Glycopyrrolate (Seebri Neohaler) 15.6 mcg IH BIDRT [facility] Last Admin: 07/04/20 06:33 Dose: Not Given Documented by: Guaifenesin (Mucinex) 600 mg PO BID [facility] Last Admin: 07/09/20 08:23 Dose: 600 mg Documented by: Vancomycin HCl 2 gm/ Sodium (Chloride) 500 mls @ 250 mls/hr IV ONETIME ONE Stop: 07/05/20 14:59 Last Admin: 07/05/20 13:41 Dose: 250 mls/hr Documented by: Vancomycin HCl 1 gm/Vancomycin HCl 500 mg/ Sodium Chloride 500 mls @ 250 mls/hr IV Q18H [facility] Last Admin: 07/07/20 18:06 Dose: 250 mls/hr Documented by: Piperacillin Sod/Tazobactam (Sod 4.5 gm/ Sodium Chloride) 100 mls @ 200 mls/hr IV ONETIME ONE Stop: 07/08/20 09:59 Last Admin: 07/08/20 10:04 Dose: 200 mls/hr Documented by: Insulin Glargine (Lantus) 25 unit SUBCUT BID [facility] Last Admin: 07/07/20 11:05 Dose: Not Given Documented by: Insulin Glargine (Lantus) 20 unit SUBCUT BEDTIME [facility] Last Admin: 07/07/20 21:06 Dose: 20 unit Documented by: Insulin Human Lispro (Humalog) 10 unit SUBCUT ONETIME ONE Stop: 07/04/20 17:47 Last Admin: 07/04/20 18:11 Dose: 10 units Documented by: Insulin Human Lispro (Humalog) 0 unit SUBCUT QIDACANDBED [facility]; Protocol Last Admin: 07/08/20 15:17 Dose: Not Given Documented by: Levofloxacin (Levaquin) 750 mg PO Q24H [facility] Last Admin: 07/07/20 12:47 Dose: 750 mg Documented by: Lorazepam (Ativan) 1 mg PO ONETIME ONE Stop: 07/02/20 07:01 Last Admin: 07/02/20 08:24 Dose: 1 mg Documented by: Magnesium Hydroxide (Milk Of Magnesia) 30 ml PO ONETIME ONE Stop: 07/07/20 16:01 Last Admin: 07/07/20 18:05 Dose: 30 ml Documented by: Non-Formulary Medication (Ipratropium) 2 puff INH TID [facility] Last Admin: 07/04/20 00:54 Dose: Not Given Documented by: Rosuvastatin Calcium (Crestor) 20 mg PO DAILY [facility] Last Admin: 07/09/20 08:21 Dose: 20 mg Documented by: Tamsulosin HCl (Flomax) 0.8 mg PO DAILY [facility] Last Admin: 07/09/20 08:19 Dose: 0.8 mg Documented by: Tiotropium [place] (Spiriva Respimat) 0 gm INH DAILY [facility] Last Admin: 07/04/20 10:24 Dose: Not Given Documented by: Triamcinolone Acetonide (Triamcinolone Acetonide 0.1% Crm) gm TOP DAILY [facility] Valacyclovir HCl (Valtrex) 1,000 mg PO TID [facility] Last Admin: 07/04/20 10:16 Dose: 1,000 mg Documented by: - Exam Quality Assessment: Supplemental Oxygen, Urine Catheter General: Alert, Oriented HEENT: Pupils Equal, Mucous Membr. Moist/[place] Neck: Supple Lungs: Normal Respiratory Effort, Rales (Bibasilar rales) Cardiovascular: Regular Rate, Regular Rhythm Extremities: Normal Inspection, Normal Range of Motion, Non-Tender, Normal Capillary Refill, Pedal Edema Psy/Mental Status: Alert, Depressed Sepsis Event Note - Evaluation Sepsis Screening Result: No Definite Risk - Focused Exam Vital Signs: Vital Signs Temp Pulse Pulse Resp BP BP Pulse Ox 07/10/20 15:15 98.0 F 66 20 122/52 L 99 07/10/20 15:13 98.1 F 66 20 122/52 L 99 07/10/20 15:00 98.3 F 66 20 135/55 L 07/10/20 14:51 98.3 F 66 20 135/55 L 100 07/10/20 14:27 98.2 F 66 20 135/55 L 100 07/10/20 13:45 97.8 F 60 18 124/49 L 07/10/20 13:43 97.9 F 60 18 124/49 L 98 07/10/20 11:33 98.1 F 51 L 51 L 20 114/40 L 114/40 L 100 07/10/20 11:18 98.0 F 54 L 20 118/46 L 100 07/10/20 11:13 98.1 F 54 L 20 118/46 L 100 07/10/20 11:03 97.7 F 59 L 18 102/48 L 98 07/10/20 10:38 97.7 F 59 L 18 102/48 L 98 07/10/20 08:12 64 135/63 07/10/20 07:48 97.9 F 64 16 135/63 96 - Problem List & Annotations (1) Metastatic lung carcinoma SNOMED Code(s): 64264598, 40106093, 653948184 Code(s): C78.00 - SECONDARY MALIGNANT NEOPLASM OF UNSPECIFIED LUNG Status: Chronic Current Visit: Yes Qualifiers: Laterality: unspecified laterality Qualified Code(s): C78.00 - Secondary malignant neoplasm of unspecified lung (2) Metastasis to brain Status: Chronic Current Visit: No (3) Pneumonia SNOMED Code(s): 056823721 Code(s): J18.9 - PNEUMONIA, UNSPECIFIED ORGANISM Status: Acute Priority: High Current Visit: No Qualifiers: Pneumonia type: due to unspecified organism Laterality: left Lung location: lower lobe of lung Qualified Code(s): J18.9 - Pneumonia, unspecified organism - Problem List Review Problem List Initiated/Reviewed/Updated: Yes - My Orders Last 24 Hours: My Active Orders 07/10/20 10:00 Sodium Chloride 0.9% [Normal Saline] 250 ml IV ASDIRECTED 07/10/20 21:00 CORONAVIRUS COVID-19 TAYLOR [MOLEC] Routine Clopidogrel [Plavix] 75 mg PO BEDTIME Rosuvastatin [Crestor] 20 mg PO BEDTIME - Plan Plan:: Impression: -Pneumoniachest x-ray shows concern for increasing multifocal peripheral airspace opacity. Patient had a fever 3 nights ago and Zosyn was added and Levaquin was stopped secondary to hypoglycemia. WBC 6.78, CRP 1.8 -Resp panel--negative -CXR on 07/09/2020, increasing multifocal peripheral airspace opacity concerning for possible pneumonia. Consider atypical/viral etiologies -Hypoglycemiaimproved: Likely secondary to Levaquin. -Urinary retention-urinary catheter placed -Anemia likely secondary to bone marrow suppression. General malaise and fatigue. Hemoglobin 7.0 -S/P LE cellulitis (Klebsiella) -S/P AUTI (Klebsiella) -Treated for above with Vancomycin/Rocephin; 06/26/2020 admission -S/P Diabetic wound care -S/P Herpes Zoster neuropathy -Treatment for above with Valtrex; 06/26/2020 -Hypoxia, [place] 2 L nasal cannula Chronic Lung CA with brain mets -currently complaining of dizziness DHF, 2D echo 09/2018 LVEF 55-60%/grade I diastolic dysfunction CAD/PCI; NSTEMI COPD CKD stage III Migraine GREEN GERD BPH Hypothyroid Obesity Plan: Continue vancomycin; Continue Zosyn 2 units packed red blood cells Continue medium dose sliding scale insulin O2 therapy, keep saturation > 90% ADA diet with sliding scale; heart healthy. Plan for discharge on Saturday after antibiotics to SNF RT with O2 therapy as needed. Currently on 2 L nasal cannula. Resume PT/OT pre DC on 06/30/2020 Recheck CBC, CMP, C-reactive protein in the morning. DVT prophylaxis with Lovenox Length of stay greater than 96 hours secondary to treatment of possible multifocal pneumonia.
[2020-07-10] MEDS: Vancomycin 1 GM, Vancomycin 500 MG in Sodium Chloride 0.9% 500 ML IV SCH (20:26)
[2020-07-10] MEDS: Montelukast 10 MG Tab PO SCH (20:27)
[2020-07-10] MEDS ORDERED: Rosuvastatin 10 MG Tab PO SCH (21:00)
[2020-07-10] MEDS ORDERED: Clopidogrel 75 MG Tab PO SCH (21:00)
[2020-07-11] MEDS: Piperacillin/Tazobactam 4.5 GM in Sodium Chloride 0.9% 100 ML IV SCH ×2 (02:23→09:30)
[2020-07-11] MEDS: Tiotropium Bromide 4 GM Inhalation Spray (2.5mcg/1 dose; 10 doses) INH SCH (06:02)
[2020-07-11] MEDS: Budesonide 0.25 MG/2 ML Neb Susp INH SCH (06:02)
[2020-07-11] MEDS: Arformoterol 15 MCG/2 ML Neb Soln INH SCH (06:04)
[2020-07-11] MEDS: Insulin Lispro 100 Units/ML 3 ML Vial SUBCUT SCH (07:06)
[2020-07-11] MEDS ORDERED: Potassium Chloride 20 MEQ Tab.ER PO ONE (09:00)
--- NOTE | 2020-07-11 09:29 | PCM.DCSUM1 ---
Discharge Summary - Hospital Course HPI Initial Comments: 80 year old male who was discharged on , 06/30/2020. He had initially been evaluated for pneumonia. He was subsequently treated for AUTI, lower extremity cellulitis as well as shingles. The patient had wanted to go home to meet several agencies that were setting up equipment and services for his hospital discharge. He stated that he returns with similar symptoms reported on the previous admission. The ED work up was unremarkable, a DC from the ED was planned. However he was unable to climb into the truck, and the DC was cancelled. A social work consult will be made for SNF, he has refused it in the recent past. Assessment/Plan Comment:: Impression: S/P treatment for presumptive PNA S/P LE cellulitis (Klebsiella) S/P AUTI (Klebsiella) Treated for above with Vancomycin/Rocephin S/P Diabetic wound care S/P Herpes Zoster neuropathy Treatment for above with Valtrex Generalize weakness Hypoxia, mild (ABG) Chronic Lung CA with brain mets DHF, 2D echo 09/2018 LVEF 55-60%/grade I diastolic dysfunction CAD/PCI; NSTEMI COPD CKD stage III Migraine GREEN GERD BPH Hypothyroid Obesity Plan: O2 therapy, keep saturation > 90% Omincef 300 mg every 12 hours IVF as needed ADA diet with sliding scale; heart healthy. Social work consult re: SNF Respiratory panel RT with O2 therapy as needed. Resume PT/OT pre DC on 06/30/2020 DVT prophylaxis Diagnosis: Stroke: No - Discharge Data Discharge Date: 07/11/20 Discharge Disposition: DC/Tfer to SNF 03 Condition: Good - Referral to Home Health Primary Care Physician: Saleem Guillermo Jr, MD - Discharge Diagnosis/Problem(s) (1) Metastatic lung carcinoma SNOMED Code(s): 62219244, [id number], 983438329 ICD Code: C78.00 - SECONDARY MALIGNANT NEOPLASM OF UNSPECIFIED LUNG Status: Chronic Current Visit: Yes Qualifiers: Laterality: unspecified laterality Qualified Code(s): C78.00 - Secondary malignant neoplasm of unspecified lung (2) Metastasis to brain Status: Chronic Current Visit: No (3) Pneumonia SNOMED Code(s): 473630431 ICD Code: J18.9 - PNEUMONIA, UNSPECIFIED ORGANISM Status: Acute Priority: High Current Visit: No Qualifiers: Pneumonia type: due to unspecified organism Laterality: left Lung location: lower lobe of lung Qualified Code(s): J18.9 - Pneumonia, unspecified organism - Patient Summary/Data Consults: Consultations 07/03/20 12:56 Consult to Case Management/W[facility] [place] [CONS] Routine 07/04/20 09:00 Consult to Physical Therapy [PT Evaluation and Treatment] [CONS] Routine Hospital Course: Patient was admitted with increased weakness. Chest x-ray was concerning for multifocal peripheral airspace disease. Patient was treated initially with Levaquin and vancomycin but blood sugars became very labile secondary to Levaquin. Levaquin was stopped and patient had the course completed with Zosyn and vancomycin. Patient did become severely anemic with a hemoglobin of 7.0. He was given 2 units of packed red blood cells with good results in both his hemoglobin but also his overall wellbeing and energy. Patient will be discharged to skilled care facility. - Patient Instructions Diet: Heart Healthy Diet Activity: As Tolerated Driving: Do Not Drive Showering/Bathing: May Shower Other/Special Instructions: Follow up with PCP in a week. Follow up with oncology 1-2 weeks. - Discharge Plan *PRESCRIPTION DRUG MONITORING PROGRAM REVIEWED*: Not Applicable *COPY OF PRESCRIPTION DRUG MONITORING REPORT IN PATIENT FIOR: Not Applicable Prescriptions/Med Rec: Clopidogrel [Plavix] 75 mg PO BEDTIME #30 tablet diazePAM [Valium] 2 mg PO Q6HR PRN #5 PRN Reason: Anxiety Home Medications: Home Meds Nitroglycerin [Nitrostat] 0.4 mg SL ASDIRECTED PRN 03/05/14 [History] Acetaminophen [Acetaminophen Extra Strength] 1,000 mg PO BID PRN 10/15/14 [History] Budesonide [Pulmicort] 1 ampule INH BID 06/30/16 [History] Montelukast [Singulair] 10 mg PO BEDTIME 06/30/16 [History] Gabapentin [Neurontin] 100 mg PO BID 01/27/18 [History] Albuterol [Ventolin HFA] 2 puff INH QID PRN 09/30/18 [History] Calcium Carb/Magnesium Hydrox [Antacid Chewable Tablet] 1,000 mg PO DAILY PRN 10/01/18 [History] Arformoterol [Brovana] 1 inh INH BID 05/05/20 [History] Aspirin 81 mg PO DAILY 05/05/20 [History] Benzonatate [Tessalon Perle] 100 - 200 mg PO Q4HR PRN 05/05/20 [History] Carboxymethylcellulose Sodium [Refresh Liquigel 1%] 1 dose EYEBOTH QID 05/05/20 [History] Clopidogrel Bisulfate [Plavix] 75 mg PO DAILY 05/05/20 [History] Fluticasone Propionate [Flonase] 2 spray NASBOTH DAILY 05/05/20 [History] Furosemide [Lasix] 20 mg PO DAILY 05/05/20 [History] Incruse Ellipta 62.5mcg/Inh 1 puff INH BID 05/05/20 [History] Ipratropium [Atrovent HFA] 2 puff INH TID 05/05/20 [History] Levothyroxine [Synthroid] 50 mcg PO DAILY 05/05/20 [History] Metoprolol Tartrate 50 mg PO BID 05/05/20 [History] Omeprazole 40 mg PO DAILY 05/05/20 [History] Ondansetron [Zofran] 4 mg PO TID PRN 05/05/20 [History] Ranolazine [Ranolazine ER] 500 mg PO BID 05/05/20 [History] Sodium Chloride/Aloe Vera [[place] Saline Nasal Gel [place]] 2 spray GISEL TID 05/05/20 [History] dexAMETHasone [Dexamethasone] 4 mg PO DAILY 05/05/20 [History] Insulin Glargine,Hum.Rec.Anlog [Basaglar Kwikpen U-100] 42 unit SQ BID 06/26/20 [History] Isosorbide Mononitrate [Isosorbide Mononitrate ER] 120 mg PO DAILY 06/26/20 [History] Non-Formulary Medication [NF Drug] 1 inh INH BID 06/26/20 [History] Rosuvastatin Calcium 20 mg PO DAILY 06/26/20 [History] Clopidogrel [Plavix] 75 mg PO BEDTIME #30 tablet 07/11/20 [Rx] Insulin Glarg,Human.Rec.Analog [Lantus] 15 unit SUBCUT BEDTIME ml 07/11/20 [Rx] Insulin Glarg,Human.Rec.Analog [Lantus] 25 unit SUBCUT DAILY ml 07/11/20 [Rx] Insulin Lispro [HumaLOG] 0 unit SUBCUT QIDACANDBED vial 07/11/20 [Rx] Rosuvastatin [Crestor] 20 mg PO BEDTIME tablet 07/11/20 [Rx] diazePAM [Valium] 2 mg PO Q6HR PRN #5 07/11/20 [Rx] Oxygen Therapy Mode: Nasal Cannula Oxygen Flow Rate (L/min): 2 Maintain SPO2% less than: 98 Maintain SpO2% greater than: 90 Patient Handouts: Generalized Anxiety Disorder, Adult, Shortness of Breath, Adult, [id number], Home Oxygen Use, Adult - Discharge Summary/Plan Comment DC Time >30 min.: Yes - General Info Date of Service: 07/11/20 Admission Dx/Problem (Free Text: Admission Diagnosis/Problem Admission Diagnosis/Problem Hypoxia Subjective Update: Patient doing well. He is feeling better after his transfusion. Functional Status: Reports: Pain Controlled - Review of Systems General: Reports: Fatigue HEENT: Reports: No Symptoms Pulmonary: Reports: No Symptoms Cardiovascular: Reports: No Symptoms Gastrointestinal: Reports: No Symptoms Musculoskeletal: Reports: Other (Leg weakness) - Patient Data Vitals - Most Recent: Last Vital Signs Temp 98.2 F 07/11/20 02:33 Pulse 57 L 07/11/20 02:32 Resp 16 07/11/20 02:32 BP 135/59 L 07/11/20 02:32 Pulse Ox 98 07/11/20 06:05 Weight - Most Recent: 231 lb I&O - Last 24 hours: Intake & Output 07/10/20 07/11/20 07/11/20 22:59 06:59 14:59 Intake Total 995 1500 Output Total 1450 1900 Balance -455 -400 Lab Results - Last 24 hrs: Laboratory Results - last 24 hr 07/10/20 07/10/20 07/10/20 Range/Units 04:45 11:46 17:01 WBC (4.23-9.07) K/mm3 RBC (4.63-6.08) M/mm3 Hgb (13.7-17.5) gm/dl Hct (40.1-51.0) % MCV (79.0-92.2) fl MCH (25.7-32.2) pg MCHC (32.2-35.5) g/dl RDW Std Deviation (35.1-43.9) fL Plt Count (163-337) K/mm3 MPV (9.4-12.3) fl Neut % (Auto) (34.0-67.9) % Lymph % (Auto) (21.8-53.1) % [place] % (Auto) (5.3-12.2) % Eos % (Auto) (0.8-7.0) Baso % (Auto) (0.1-1.2) % Neut # (Auto) (1.78-5.38) K/mm3 Lymph # (Auto) (1.32-3.57) K/mm3 [place] # (Auto) (0.30-0.82) K/mm3 Eos # (Auto) (0.04-0.54) K/mm3 Baso # (Auto) (0.01-0.08) K/mm3 Manual Slide Review Sodium (136-145) mEq/L Potassium (3.5-5.1) mEq/L Chloride (98-107) mEq/L Carbon Dioxide (21-32) mEq/L Anion Gap (5-15) BUN (7-18) mg/dL Creatinine (0.7-1.3) mg/dL Est Cr Clr Drug Dosing mL/min Estimated GFR (MDRD) (>60) mL/min BUN/Creatinine Ratio (14-18) Glucose (83-115) mg/dL POC Glucose 151 H 233 H (83-110) mg/dL Calcium (8.5-10.1) mg/dL Total Bilirubin (0.2-1.0) mg/dL AST (15-37) U/L ALT (16-63) U/L Alkaline Phosphatase (46-116) U/L C-Reactive Protein (<1.0) mg/dL Total Protein (6.4-8.2) g/dl Albumin (3.4-5.0) g/dl Globulin gm/dL Albumin/Globulin Ratio (1-2) SARS-CoV-2 RNA (TAYLOR) (NEGATIVE) Blood Type A NEGATIVE Gel Antibody Screen Negative Crossmatch See Detail 07/10/20 07/11/20 07/11/20 Range/Units 20:25 05:10 05:10 WBC 6.74 (4.23-9.07) K/mm3 RBC 2.96 L (4.63-6.08) M/mm3 Hgb 9.0 L D (13.7-17.5) gm/dl Hct 28.8 L (40.1-51.0) % MCV 97.3 H D (79.0-92.2) fl MCH 30.4 (25.7-32.2) pg MCHC 31.3 L (32.2-35.5) g/dl RDW Std Deviation 58.9 H (35.1-43.9) fL Plt Count 131 L (163-337) K/mm3 MPV 10.2 (9.4-12.3) fl Neut % (Auto) 84.7 H (34.0-67.9) % Lymph % (Auto) 5.5 L (21.8-53.1) % [place] % (Auto) 6.2 (5.3-12.2) % Eos % (Auto) 0.4 L (0.8-7.0) Baso % (Auto) 0.1 (0.1-1.2) % Neut # (Auto) 5.70 H (1.78-5.38) K/mm3 Lymph # (Auto) 0.37 L (1.32-3.57) K/mm3 [place]utter # (Auto) 0.42 (0.30-0.82) K/mm3 Eos # (Auto) 0.03 L (0.04-0.54) K/mm3 Baso # (Auto) 0.01 (0.01-0.08) K/mm3 Manual Slide Review Abnormal smear Sodium 141 (136-145) mEq/L Potassium 3.3 L (3.5-5.1) mEq/L Chloride 103 (98-107) mEq/L Carbon Dioxide 35 H (21-32) mEq/L Anion Gap 6.3 (5-15) BUN 22 H (7-18) mg/dL Creatinine 1.3 (0.7-1.3) mg/dL Est Cr Clr Drug Dosing 51.22 mL/min Estimated GFR (MDRD) 53 (>60) mL/min BUN/Creatinine Ratio 16.9 (14-18) Glucose 103 (83-115) mg/dL POC Glucose 220 H (83-110) mg/dL Calcium 8.2 L (8.5-10.1) mg/dL Total Bilirubin 0.8 (0.2-1.0) mg/dL AST 13 L (15-37) U/L ALT 19 (16-63) U/L Alkaline Phosphatase 46 (46-116) U/L C-Reactive Protein 1.4 H* (<1.0) mg/dL Total Protein 5.0 L (6.4-8.2) g/dl Albumin 1.9 L (3.4-5.0) g/dl Globulin 3.1 gm/dL Albumin/Globulin Ratio 0.6 L (1-2) SARS-CoV-2 RNA (TAYLOR) (NEGATIVE) Blood Type Gel Antibody Screen Crossmatch 07/11/20 07/11/20 Range/Units 06:14 06:15 WBC (4.23-9.07) K/mm3 RBC (4.63-6.08) M/mm3 Hgb (13.7-17.5) gm/dl Hct (40.1-51.0) % MCV (79.0-92.2) fl MCH (25.7-32.2) pg MCHC (32.2-35.5) g/dl RDW Std Deviation (35.1-43.9) fL Plt Count (163-337) K/mm3 MPV (9.4-12.3) fl Neut % (Auto) (34.0-67.9) % Lymph % (Auto) (21.8-53.1) % [place] % (Auto) (5.3-12.2) % Eos % (Auto) (0.8-7.0) Baso % (Auto) (0.1-1.2) % Neut # (Auto) (1.78-5.38) K/mm3 Lymph # (Auto) (1.32-3.57) K/mm3 [place] # (Auto) (0.30-0.82) K/mm3 Eos # (Auto) (0.04-0.54) K/mm3 Baso # (Auto) (0.01-0.08) K/mm3 Manual Slide Review Sodium (136-145) mEq/L Potassium (3.5-5.1) mEq/L Chloride (98-107) mEq/L Carbon Dioxide (21-32) mEq/L Anion Gap (5-15) BUN (7-18) mg/dL Creatinine (0.7-1.3) mg/dL Est Cr Clr Drug Dosing mL/min Estimated GFR (MDRD) (>60) mL/min BUN/Creatinine Ratio (14-18) Glucose (83-115) mg/dL POC Glucose 105 (83-110) mg/dL Calcium (8.5-10.1) mg/dL Total Bilirubin (0.2-1.0) mg/dL AST (15-37) U/L ALT (16-63) U/L Alkaline Phosphatase (46-116) U/L C-Reactive Protein (<1.0) mg/dL Total Protein (6.4-8.2) g/dl Albumin (3.4-5.0) g/dl Globulin gm/dL Albumin/Globulin Ratio (1-2) SARS-CoV-2 RNA (TAYLOR) Negative (NEGATIVE) Blood Type Gel Antibody Screen Crossmatch BEAR Results - Last 24 hrs: Microbiology 07/08/20 13:10 Aerobic Blood Culture - Preliminary Blood - Venous - Lab Draw NO GROWTH AFTER 2 DAYS Anaerobic Blood Culture - Preliminary NO GROWTH AFTER 2 DAYS 07/08/20 13:00 Aerobic Blood Culture - Preliminary Blood - Venous NO GROWTH AFTER 2 DAYS Anaerobic Blood Culture - Final Med Orders - Current: Current Medications Acetaminophen (Tylenol) 650 mg PO Q4H PRN PRN Reason: Fever Last Admin: 07/08/20 14:41 Dose: 650 mg Documented by: Albuterol (Proventil Hfa) 0 gm INH QID PRN PRN Reason: Shortness of Breath Arformoterol Tartrate (Brovana) 15 mcg INH BIDRT [facility] Last Admin: 07/11/20 06:04 Dose: Not Given Documented by: Artificial Tears (Refresh Liquigel 1%) 0 ml EYEBOTH QID [facility] Last Admin: 07/10/20 20:28 Dose: Not Given Documented by: Aspirin (Halfprin) 81 mg PO DAILY [facility] Last Admin: 07/10/20 08:12 Dose: 81 mg Documented by: Budesonide (Pulmicort) 0.25 mg INH BIDRT [facility] Last Admin: 07/11/20 06:02 Dose: 0.25 mg Documented by: Clopidogrel Bisulfate (Plavix) 75 mg PO BEDTIME [facility] Last Admin: 07/10/20 20:27 Dose: 75 mg Documented by: Dexamethasone (Dexamethasone) 4 mg PO DAILY [facility] Last Admin: 07/10/20 08:12 Dose: 4 mg Documented by: Dextrose/Water (Dextrose 50% In Water) 50 ml IV ASDIRECTED PRN PRN Reason: Hypoglycemia Diazepam (Valium) 2 mg PO Q6HR PRN PRN Reason: Anxiety Last Admin: 07/06/20 01:08 Dose: 2 mg Documented by: Enoxaparin Sodium (Lovenox) 40 mg SUBCUT Q24H [facility] Last Admin: 07/10/20 13:56 Dose: 40 mg Documented by: Fluticasone Propionate (Flonase) 0 gm NASBOTH DAILY [facility] Last Admin: 07/10/20 08:11 Dose: 1 spray Documented by: Furosemide (Lasix) 20 mg PO DAILY [facility] Last Admin: 07/10/20 08:13 Dose: 20 mg Documented by: Gabapentin (Neurontin) 100 mg PO BID [facility] Last Admin: 07/10/20 20:27 Dose: 100 mg Documented by: Piperacillin Sod/Tazobactam (Sod 4.5 gm/ Sodium Chloride) 100 mls @ 25 mls/hr IV Q8H [facility] Last Admin: 07/11/20 02:23 Dose: 25 mls/hr Documented by: Vancomycin HCl 1 gm/Vancomycin HCl 500 mg/ Sodium Chloride 500 mls @ 250 mls/hr IV Q24H [facility] Last Admin: 07/10/20 20:26 Dose: 250 mls/hr Documented by: Insulin Glargine (Lantus) 25 unit SUBCUT DAILY [facility] Last Admin: 07/10/20 08:13 Dose: 25 units Documented by: Insulin Glargine (Lantus) 15 unit SUBCUT BEDTIME [facility] Last Admin: 07/10/20 20:28 Dose: 15 units Documented by: Insulin Human Lispro (Humalog) 0 unit SUBCUT QIDACANDBED [facility]; Protocol Last Admin: 07/11/20 07:06 Dose: Not Given Documented by: Isosorbide Mononitrate (Imdur) 120 mg PO DAILY [facility] Last Admin: 07/10/20 08:12 Dose: 120 mg Documented by: Levothyroxine Sodium (Synthroid) 50 mcg PO DAILY [facility] Last Admin: 07/10/20 08:12 Dose: 50 mcg Documented by: Metoprolol Tartrate (Lopressor) 50 mg PO BID [facility] Last Admin: 07/10/20 20:27 Dose: 50 mg Documented by: Montelukast Sodium (Singulair) 10 mg PO BEDTIME [facility] Last Admin: 07/10/20 20:27 Dose: 10 mg Documented by: Nitroglycerin (Nitrostat) 0.4 mg SL ASDIRECTED PRN PRN Reason: Chest Pain Ondansetron HCl (Zofran Odt) 4 mg PO TID PRN PRN Reason: Nausea Pantoprazole Sodium (Protonix) 40 mg PO DAILY [facility] Last Admin: 07/10/20 08:12 Dose: 40 mg Documented by: Promethazine HCl/Codeine (Phenergan With Codeine) 10 ml PO Q8HR PRN PRN Reason: Cough Ranolazine (Ranexa) 500 mg PO BID [facility] Last Admin: 07/10/20 20:27 Dose: 500 mg Documented by: Rosuvastatin Calcium (Crestor) 20 mg PO BEDTIME [facility] Last Admin: 07/10/20 20:27 Dose: 20 mg Documented by: Saccharomyces Boulardii (Florastor) 500 mg PO DAILY [facility] Last Admin: 07/10/20 08:12 Dose: 500 mg Documented by: Sodium Chloride (Saline Flush) 10 ml FLUSH ASDIRECTED PRN PRN Reason: Keep Vein Open Last Admin: 07/02/20 10:21 Dose: 10 ml Documented by: Tiotropium [place] (Spiriva Respimat) 0 gm INH DAILY@0600 [facility] Last Admin: 07/11/20 06:02 Dose: 4 gm Documented by: Vancomycin HCl (Pharmacy To Dose - Vancomycin) 1 dose .XX ASDIRECTED [facility] Discontinued Medications Benzonatate (Tessalon Perles) 200 mg PO Q4HR PRN PRN Reason: Cough Budesonide (Pulmicort) 0.25 mg INH BID [facility] Calcium Carbonate/Glycine (Tums) 1,000 mg PO DAILY PRN PRN Reason: Heartburn Cefdinir (Omnicef) 300 mg PO BID [facility] Stop: 07/05/20 22:30 Last Admin: 07/05/20 20:12 Dose: 300 mg Documented by: Clopidogrel Bisulfate (Plavix) 75 mg PO DAILY [facility] Last Admin: 07/09/20 08:19 Dose: 75 mg Documented by: Clopidogrel Bisulfate (Plavix) 75 mg PO BEDTIME [facility] Diphenhydr/Magaldrate/Simeth/Lidoca (First-Mouthwash Blm Susp) 30 ml PO QID [facility] Last Admin: 07/09/20 08:16 Dose: 30 ml Documented by: Enoxaparin Sodium (Lovenox) 30 mg SUBCUT Q24H [facility] Last Admin: 07/03/20 14:04 Dose: 30 mg Documented by: Furosemide (Lasix) 20 mg IVPUSH ONETIME ONE Stop: 07/10/20 13:01 Last Admin: 07/10/20 13:56 Dose: 20 mg Documented by: Glycopyrrolate (Seebri Neohaler) 0 mcg IH BID [place] Glycopyrrolate (Seebri Neohaler) 15.6 mcg IH BIDRT [facility] Last Admin: 07/04/20 06:33 Dose: Not Given Documented by: Guaifenesin (Mucinex) 600 mg PO BID [facility] Last Admin: 07/09/20 08:23 Dose: 600 mg Documented by: Vancomycin HCl 2 gm/ Sodium (Chloride) 500 mls @ 250 mls/hr IV ONETIME ONE Stop: 07/05/20 14:59 Last Admin: 07/05/20 13:41 Dose: 250 mls/hr Documented by: Vancomycin HCl 1 gm/Vancomycin HCl 500 mg/ Sodium Chloride 500 mls @ 250 mls/hr IV Q18H [facility] Last Admin: 07/07/20 18:06 Dose: 250 mls/hr Documented by: Piperacillin Sod/Tazobactam (Sod 4.5 gm/ Sodium Chloride) 100 mls @ 200 mls/hr IV ONETIME ONE Stop: 07/08/20 09:59 Last Admin: 07/08/20 10:04 Dose: 200 mls/hr Documented by: Sodium Chloride (Normal Saline) 250 mls @ 50 mls/hr IV ASDIRECTED [facility] Insulin Glargine (Lantus) 25 unit SUBCUT BID [facility] Last Admin: 07/07/20 11:05 Dose: Not Given Documented by: Insulin Glargine (Lantus) 20 unit SUBCUT BEDTIME [facility] Last Admin: 07/07/20 21:06 Dose: 20 unit Documented by: Insulin Human Lispro (Humalog) 10 unit SUBCUT ONETIME ONE Stop: 07/04/20 17:47 Last Admin: 07/04/20 18:11 Dose: 10 units Documented by: Insulin Human Lispro (Humalog) 0 unit SUBCUT QIDACANDBED [facility]; Protocol Last Admin: 07/08/20 15:17 Dose: Not Given Documented by: Levofloxacin (Levaquin) 750 mg PO Q24H [facility] Last Admin: 07/07/20 12:47 Dose: 750 mg Documented by: Lorazepam (Ativan) 1 mg PO ONETIME ONE Stop: 07/02/20 07:01 Last Admin: 07/02/20 08:24 Dose: 1 mg Documented by: Magnesium Hydroxide (Milk Of Magnesia) 30 ml PO ONETIME ONE Stop: 07/07/20 16:01 Last Admin: 07/07/20 18:05 Dose: 30 ml Documented by: Non-Formulary Medication (Ipratropium) 2 puff INH TID [facility] Last Admin: 07/04/20 00:54 Dose: Not Given Documented by: Potassium Chloride (Klor-Con M20) 40 meq PO ONETIME ONE Stop: 07/11/20 09:01 Rosuvastatin Calcium (Crestor) 20 mg PO DAILY [facility] Last Admin: 07/09/20 08:21 Dose: 20 mg Documented by: Tamsulosin HCl (Flomax) 0.8 mg PO DAILY [facility] Last Admin: 07/09/20 08:19 Dose: 0.8 mg Documented by: Tiotropium [place] (Spiriva Respimat) 0 gm INH DAILY [facility] Last Admin: 07/04/20 10:24 Dose: Not Given Documented by: Triamcinolone Acetonide (Triamcinolone Acetonide 0.1% Crm) gm TOP DAILY [facility] Valacyclovir HCl (Valtrex) 1,000 mg PO TID [facility] Last Admin: 07/04/20 10:16 Dose: 1,000 mg Documented by: - Exam Quality Assessment: Reports: Supplemental Oxygen General: Reports: Alert, Oriented HEENT: Reports: Pupils Equal, Mucous Membr. Moist/[place] Neck: Reports: Supple Lungs: Reports: Normal Respiratory Effort, Crackles (Fine crackles in the base) Cardiovascular: Reports: Regular Rate, Regular Rhythm GI/Abdominal Exam: Normal Bowel Sounds, Soft, Non-Tender, No Distention Extremities: Normal Inspection, Normal Range of Motion, Non-Tender, No Pedal Edema, Normal Capillary Refill Skin: Reports: Warm, Dry, Intact Psy/Mental Status: Reports: Alert, Normal Affect, Normal Mood
[2020-07-11] MEDS: Insulin Glarg,Human.Rec.Analog 100 Unit/ML SUBCUT SCH (09:31)
[2020-07-11] MEDS: Saccharomyces Boulardii (Probiotic) 250 MG Cap PO SCH (09:33)
[2020-07-11] MEDS: Fluticasone Propionate Nasal Spray 16 GM Bottle NASBOTH SCH (09:33)
[2020-07-11] MEDS: Gabapentin 100 MG Cap PO SCH (09:34)
[2020-07-11] MEDS: Dexamethasone 4 MG Tab PO SCH (09:34)
[2020-07-11] MEDS: Metoprolol Tartrate 50 MG Tab PO SCH (09:34)
[2020-07-11] MEDS: Aspirin 81 MG Tab.EC PO SCH (09:34)
[2020-07-11] MEDS: Furosemide 20 MG Tab PO SCH (09:34)
[2020-07-11 09:35] VITALS: BP 154/60; PULSE 58
[2020-07-11] MEDS: Carboxymethylcellulose Sodium 1% Ophth Gel 15 ML Bottle EYEBOTH SCH (09:35)
[2020-07-11] MEDS: Pantoprazole 40 MG Tab.CR PO SCH (09:35)
[2020-07-11] MEDS: Isosorbide Mononitrate 60 MG Tab.ER PO SCH (09:37)
[2020-07-11] MEDS: Levothyroxine 50 MCG Tab PO SCH (09:37)
--- NOTE | 2020-07-11 14:26 | CR ---
PROCEDURE INFORMATION: Exam: XR Chest, 1 View Exam date and time: 07/09/2020 11:59 AM Age: 80 years old Clinical indication: Shortness of breath TECHNIQUE: Imaging protocol: XR of the chest Views: 1 view. COMPARISON: CR Chest 1V Frontal 07/05/2020 9:43 AM FINDINGS: Tubes, catheters and devices: A right-sided MediPort is present. Lungs: Multifocal peripheral airspace opacity is present which has increased when compared to the previous examination. The finding is concerning for possible pneumonia. Consider atypical/viral etiologies. Chronic appearing interstitial changes are present elsewhere. Pleural space: Unremarkable. No pleural effusion. No pneumothorax. Heart/Mediastinum: Heart size is mildly prominent. Bones/joints: Unremarkable. IMPRESSION: Increasing multifocal peripheral airspace opacity concerning for possible pneumonia. Consider atypical/viral etiologies. Thank you for allowing us to participate in the care of your patient. Dictated and Authenticated by: Ricky Kelley MD 07/09/2020 1:35 PM Central Time ([place] & [place]) LISA
== END 2020-07-11 11:28 | DRG 194 ==
LOC: JD.ED 05:48 → JD.MS 14:59
PROVIDERS: ADMIT Internal Medicine Cardiovascular Disease; ATTEND Internal Medicine Cardiovascular Disease
PROC: 8E0ZXY6 Isolation (ICD-10-PCS; principal; 2020-07-03)
DX: R53.1 Weakness (principal); J18.9 Pneumonia, unspecified organism; C34.90 Malignant neoplasm of unspecified part of unspecified bronchus or lung; B02.23 Postherpetic polyneuropathy; L03.119 Cellulitis of unspecified part of limb; C79.31 Secondary malignant neoplasm of brain; I13.0 Hypertensive heart and chronic kidney disease with heart failure and stage 1 through stage 4 chronic kidney disease, or unspecified chronic kidney disease; I50.32 Chronic diastolic (congestive) heart failure; I11.0 Hypertensive heart disease with heart failure; R09.02 Hypoxemia; F41.9 Anxiety disorder, unspecified; E83.42 Hypomagnesemia; H54.7 Unspecified visual loss; E78.00 Pure hypercholesterolemia, unspecified; J43.9 Emphysema, unspecified; K21.9 Gastro-esophageal reflux disease without esophagitis; E11.9 Type 2 diabetes mellitus without complications; Z20.828 Contact with and (suspected) exposure to other viral communicable diseases; N40.0 Benign prostatic hyperplasia without lower urinary tract symptoms; Z86.73 Personal history of transient ischemic attack (TIA), and cerebral infarction without residual deficits; M19.90 Unspecified osteoarthritis, unspecified site; M54.9 Dorsalgia, unspecified; Z91.02 Food additives allergy status; L82.1 Other seborrheic keratosis; D53.9 Nutritional anemia, unspecified; E11.22 Type 2 diabetes mellitus with diabetic chronic kidney disease; N18.30 Chronic kidney disease, stage 3 unspecified; E03.9 Hypothyroidism, unspecified; G43.909 Migraine, unspecified, not intractable, without status migrainosus; B96.1 Klebsiella pneumoniae [K. pneumoniae] as the cause of diseases classified elsewhere; E66.9 Obesity, unspecified; G89.29 Other chronic pain; E11.649 Type 2 diabetes mellitus with hypoglycemia without coma; R26.2 Difficulty in walking, not elsewhere classified; Z99.81 Dependence on supplemental oxygen; Z95.5 Presence of coronary angioplasty implant and graft; Z79.51 Long term (current) use of inhaled steroids; Z79.899 Other long term (current) drug therapy; Z79.52 Long term (current) use of systemic steroids; Z79.82 Long term (current) use of aspirin; I25.2 Old myocardial infarction; Z79.890 Hormone replacement therapy; Z79.4 Long term (current) use of insulin; Z91.013 Allergy to seafood; Z88.8 Allergy status to other drugs, medicaments and biological substances; Z88.6 Allergy status to analgesic agent; Z88.4 Allergy status to anesthetic agent; Z88.5 Allergy status to narcotic agent; Z68.30 Body mass index [BMI] 30.0-30.9, adult
CPT/HCPCS: 36415; 36600; 71045; 80053; 82803; 84484; 85025; 86140; 93005; 99285; A9270; U0002; 36430; 51701; 51702; 51798; 80048; 80202; 82947; 82962; 83605; 83735; 84100; 84145; 86850; 86900; 86901; 86922; 87040; 87486; 87581; 87633; 87798; 87804; 94640; 94760; 94761; 96523; 97110-GP; 97161-GP; 97530-GP; 99222; 99231; 99232; 99239; 99284; J1642; J1650; J1815-GY; J1940; J2543; J3370; J7040; J7050; J8540; P9016